=== PATIENT | female | born 1985 | race Caucasian/White ===

== ENCOUNTER 2023-05-08 16:49 | Emergency (ER) | payer MEDICAID, SELFPAY ==
[2023-05-08 16:56] VITALS: BP 178/102; PULSE 90; RESP 14; TEMP 36.8; O2SAT 97; BMI 37.8
--- NOTE | 2023-05-08 17:24 | XR_ITS ---
The [address] [address] Patient Name: TORY HSU MRN: [id number] date: 1985 Sex: F Assigned Patient Location: ER Current Patient Location: ER Accession/Order Number: [id number] Exam Date: 05/08/2023 17:37 Report Date: 05/08/2023 18:23 At the request of: BRYANT CORCORAN Procedure: XR hip LT 2V w/ pelvis IMAGES REVIEWED: XR hip LT 2V w/ pelvis COMPARISON: 06/08/2022. CLINICAL INDICATION: left hip pain FINDINGS/IMPRESSION: Unremarkable radiographic appearance of the left hip. Electronically authenticated by: JULIANA HANSEN Date: 05/08/2023 18:23
--- NOTE | 2023-05-08 17:24 | XR_ITS ---
[place] [id number] Patient Name: TORY HSU MRN: [id number] date: 1985 Sex: F Assigned Patient Location: ER Current Patient Location: ED.MAIN Accession/Order Number: [id number] Exam Date: 05/08/2023 17:37 Report Date: 05/08/2023 18:13 At the request of: BRYANT CORCORAN Procedure: XR lumbar spine 2-3V EXAMINATION: XR lumbar spine 2-3V, , 05/08/2023 5:37 PM EST INDICATION: Low back pain HISTORY: Ordering Provider Reason for Exam: Low back pain Technologist Note: Additional: COMPARISON: None. TECHNIQUE: Left hip x-ray: 2 view(s). FINDINGS: No acute fracture. Joint alignment is anatomic. Joint spaces are preserved. Soft tissues are within normal limits. XR/XR lumbar spine 2-3V IMPRESSION: No acute fracture or traumatic malalignment. Electronically authenticated by: IRENE HOUGH Date: 05/08/2023 18:13
--- NOTE | 2023-05-08 17:27 | ED_ITS ---
HPI - Back Pain/Injury General Chief Complaint: Back Pain/Injury Stated Complaint: LT LEG PAIN Time Seen by Provider: 05/08/23 16:57 Source: patient and family Mode of arrival: walk-in Limitations: no limitations History of Present Illness HPI Narrative: patient is a 37-year-old female who presents to the emergency department for the evaluation of pain radiating from the left low back into the left buttock and do wn the back of the left leg. Patient states pain has been present for the last week. It has been increasing over the last several days. She is not concerned for . She denies any falls or injuries. She has not had these symptoms previously. No medications taken prior to arrival. She denies any peripheral paresthesias or incontinence. Related Data Home Medications Medication Instructions Recorded Confirmed escitalopram oxalate 10 mg tablet 10 mg PO DAILY 05/08/23 05/08/23 fluticasone propionate 50 2 spray intranasal 05/08/23 mcg/actuation nasal spray,suspension hydrochlorothiazide 12.5 mg tablet 12.5 mg PO DAILY 05/08/23 05/08/23 hydroxyzine pamoate 50 mg capsule 50 mg PO BID PRN anxiety 05/08/23 05/08/23 omega 1-hrc-ftp-fish oil 300 1 cap PO BID 05/08/23 05/08/23 mg-1,000 mg capsule (Fish Oil) quetiapine 100 mg tablet 100 mg PO BEDTIME 05/08/23 05/08/23 sumatriptan succinate 50 mg tablet 50 mg PO Q2H PRN migraine headache 05/08/23 05/08/23 Previous Rx's Medication Instructions Recorded hydrocodone 5 mg-acetaminophen 325 1 tab PO Q6H PRN pain #12 tabs 05/08/23 mg tablet ketorolac 10 mg tablet 10 mg PO TID PRN pain #10 tabs 05/08/23 methocarbamol 750 mg tablet 750 mg PO TID PRN pain #20 tabs 05/08/23 Allergies Allergy/AdvReac Type Severity Reaction Status Date / Time amoxicillin AdvReac Severe Hives Verified 05/08/23 16:55 Review of Systems ROS Constitutional Denies: fever or chills Ears, nose, mouth, and throat Denies: neck pain Cardiovascular Denies: chest pain Respiratory Denies: shortness of breath or cough Gastrointestinal Denies: abdominal pain, nausea or vomiting Musculoskeletal Reports: back pain and extremity pain; Denies: neck pain Integumentary/Breast Denies: rash Neurological Denies: headache Hematologic/Lymphatic Denies: easy bruising PFSH PFSH Social History Smoking status: Current every day smoker Exam Narrative Exam Narrative: Gen.: Awake, alert, in no distress Head: Normocephalic, atraumatic ENT: Moist mucous membranes Respiratory: No respiratory distress back: No bony tenderness of the T-spine or L-spine with diffuse mild tenderness of the left posterior hip and left paraspinal muscles of the lumbar spine. No obvious deformity or step-off Extremities: Moves extremities equally, no injuries noted; normal dorsiflexion and plantarflexion of the lower extremities with no decrease in sensation to the medial thighs Psych: Normal mood and affect Neuro: No focal neuro deficit Skin: Warm, dry, intact Constitutional Vital Signs, click to edit/add: Last Vital Signs Temp 98.2 F 05/08/23 16:56 Pulse 90 05/08/23 16:56 Resp 14 05/08/23 16:56 BP 178/102 H 05/08/23 16:56 Pulse Ox 97 05/08/23 16:56 O2 Del Method Room Air 05/08/23 16:56 Course Vital Signs Vital signs: Vital Signs Temperature 98.2 F 05/08/23 16:56 Pulse Rate 90 05/08/23 16:56 Respiratory Rate 14 05/08/23 16:56 Blood Pressure 178/102 H 05/08/23 16:56 Pulse Oximetry 97 05/08/23 16:56 Oxygen Delivery Method Room Air 05/08/23 16:56 Temperature 98.2 F 05/08/23 16:56 Pulse Rate 90 05/08/23 16:56 Respiratory Rate 14 05/08/23 16:56 Blood Pressure 178/102 H 05/08/23 16:56 Pulse Oximetry 97 05/08/23 16:56 Oxygen Delivery Method Room Air 05/08/23 16:56 MDM - Back Pain/Injury MDM Narrative Medical decision making narrative: x-rays of the lumbar spine and left hip with pelvis show no evidence of acute process. Patient's history and exam are consistent with left-sided sciatica. She'll be treated for symptoms for home. She has no focal neuro deficits on exam. She is encouraged to rest, alternate ice and heat and follow-up with PCP. Return to the Emergency Room if symptoms change or worsen. patient was noted to have high blood pressure in the Emergency Room, she takes blood pressure medications daily but states due to her pain today she has been laying around did not take her regular daily blood pressure medication. She will take this when she gets home. Medical Records Attestation: I reviewed the patient's medical records. Discharge Plan Discharge Chief Complaint: Back Pain/Injury Clinical Impression: Acute left-sided back pain with sciatica Patient Disposition: Home, Self-Care Time of Disposition Decision: 18:08 Condition: Good Prescriptions / Home Meds: New hydrocodone-acetaminophen 5-325 mg tablet 1 tab PO Q6H PRN (Reason: pain) Qty: 12 0RF Rx Instructions: DX: M54.5 ketorolac 10 mg tablet 10 mg PO TID PRN (Reason: pain) Qty: 10 0RF methocarbamol 750 mg tablet 750 mg PO TID PRN (Reason: pain) Qty: 20 0RF No Action hydrochlorothiazide 12.5 mg tablet 12.5 mg PO DAILY escitalopram oxalate 10 mg tablet 10 mg PO DAILY fluticasone propionate 50 mcg/actuation spray,suspension 2 spray INTRANASAL hydroxyzine pamoate 50 mg capsule 50 mg PO BID PRN (Reason: anxiety) omega 7-npi-qsu-fish oil [Fish Oil] 300-1,000 mg capsule 1 cap PO BID quetiapine 100 mg tablet 100 mg PO BEDTIME sumatriptan succinate 50 mg tablet 50 mg PO Q2H PRN (Reason: migraine headache) Instructions: Sciatica (ED), Lower Back Exercises (ED) Stand Alone Forms: Portal Instructions Referrals: RONY SHARMA [Primary Care Provider] - 1 week
[2023-05-08] MEDS: HYDROCODONE/ACET 5-325 MG TABLET 1 TAB PO (17:34)
[2023-05-08] MEDS: KETOROLAC TROMETHAMINE 60 MG/2 ML VIAL IM (17:34)
[2023-05-08] MEDS: ORPHENADRINE 60 MG/ 2 ML VIAL IM (17:34)
== END 2023-05-08 18:12 | disposition home or self-care (01) ==
PROVIDERS: Emergency Provider Emergency Medicine Emergency Medical Services; PCP Nurse Practitioner
DX: M54.42 Lumbago with sciatica, left side (principal); Z79.899 Other long term (current) drug therapy; F17.210 Nicotine dependence, cigarettes, uncomplicated
CPT/HCPCS: 72100; 73502; 96372; 99285

== ENCOUNTER 2023-11-06 20:25 | Outpatient (REF) | payer MEDICAID, SELFPAY | END 2023-11-06 20:26 | disposition home or self-care (01) | LOC: LAB 20:25 | PROVIDERS: PCP Nurse Practitioner; Visit Provider Physician Assistant | DX: Z01.419 Encounter for gynecological examination (general) (routine) without abnormal findings (principal) | CPT/HCPCS: 87624; G0145 ==

== ENCOUNTER 2023-11-13 16:39 | Outpatient (OUT) | payer MEDICAID, SELFPAY ==
--- OUTSIDE RECORDS SUMMARY | 2023-11-13 17:00 | XMS_ITS | CCD ---
Author Organization [facility] Care Team Providers Care Junior Architect Name Role Phone Gerson Sheppard Admitting Unavailable Gerson Sheppard Attending Unavailable Unavailable Primary Care Provider Unavailabl e Unavailable Primary Care Provider Unavailabl e JACKIE, ARIE Referring Unavailable JACKIE, ARIE Referring Unavailable JACKIE, ARIE Referring Unavailable JACKIE, ARIE Referring Unavailable JACKIE, ARIE Referring Unavailable REQUEST, NONE LISTED Primary Care Unavaila ble ASHLIE ., JOCE Admitting Unavailable ASHLIE ., JOCE Attending Unavailable JEWELL ., MICHELLE HURTADO Consulting Unavailabl e REQUEST, NONE LISTED Primary Care Unavaila ble ANTONIA DREW Admitting Unavailable ANTONIA DREW Attending Unavailable REQUEST, NONE LISTED Primary Care Unavaila ble ASHLIE ., JOCE Admitting Unavailable ASHLIE ., JOCE Attending Unavailable GRECHNY ., MICHELLE HURTADO Consulting Unavailabl e ROSSEMILIANA Consulting Unavailable REQUEST, NONE LISTED Primary Care Unavaila ble MARKER ., DR SPRAGUE Admitting Unavailable MARKER ., DR SPRAGUE Attending Unavailable MARKER ., DR SPRAGUE Consulting Unavailable SHARON MC Consulting Unavailable KARASIK ., DR GARCIA Admitting Unavailabl e KARASIK ., DR GARCIA Attending Unavailabl e REQUEST, NONE LISTED Primary Care Unavaila ble KARASIK ., DR GARCIA Consulting Unavailabl e RONY COX Primary Care Physician RONY COX Primary Care Unavailable Li Deutsch Attending Unavailable Rony Villalobos Primary Care Provid er MACHO BUTLER Attending Unavailable Allergies Allergy Classification Reported Allergen(s) Allergy Type Date of Onset Reaction(s) Facility (1 source) Penicillin Drug Allergy [facility] (3 sources) Penicillins Propensity to adverse reactions to drug [facility] Medications Current Medications Medication Drug Class(es) Dates Sig (Normalized) Sig (Original) ARIPiprazole 5 mg oral tablet (4 sources) Atypical Antipsychotic Start: 06-14-2023 take 1 tablet by mouth in the morning ARIPiprazole (ABILIFY) 5 mg tablet Indications: Bipolar affective disorder, currently depressed, mild (CMS-HCC) Take 1 tablet (5 mg total) by mouth in the morning. 30 tablet 3 06/14/2023 Active Start: 02-21-2023 Abilify Refill s(s) 0 Start Date: 02/21/23 Status: Ordered Peridex (4 sources) Start: 02-21-2023 Peridex Refill (s) 0 Start Date: 02/21/23 Status: Ordered Start: 01-08-2023 take 15 mL by mouth in the morning chlorhexidine (PERIDEX) 0.12 % solution Indications: Canker sores oral Apply 15 mL to the mouth or throat in the morning and 15 mL before bedtime. 120 mL 1 01/08/2023 Active cholecalciferol 0.125 mg oral capsule (4 sources) Vitamin D Start: 06-14-2023 End: 09-12-2023 take 1 capsule by mouth once daily in the morning cholecalciferol, vitamin D3, (VITAMIN D3) 5,000 units capsule Indications: Vitamin D deficiency take 1 capsule by mouth every morning 30 capsule 5 09/12/2023 Active escitalopram 10 mg oral tablet (4 sources) Serotonin Reuptake Inhibitor Start: 05-01-2023 take 1 tablet by mouth in the morning escitalopram (LEXAPRO) 10 mg tablet Indications: Bipolar affective disorder, currently depressed, mild (CMS-HCC) Take 1 tablet (10 mg total) by mouth in the morning. 30 tablet 5 05/01/2023 Active Start: 02-21-2023 Lexapro Refill s(s) 0 Start Date: 02/21/23 Status: Ordered fexofenadine hydrochloride 180 mg oral tablet (4 sources) Histamine-1 Receptor Antagonist Start: 06-14-2023 take 1 tablet by mouth in the morning fexofenadine (SHELLY) 180 mg tablet Indications: Chronic seasonal allergic rhinitis Take 1 tablet (180 mg total) by mouth in the morning. 30 tablet 6 06/14/2023 Active Start: 02-21-2023 Shelly Refill s(s) 0 Start Date: 02/21/23 Status: Ordered Fish Oils (4 sources) Start: 06-14-2023 take 1 capsule by mo [facility] twice daily Fish OiL 300-1,000 mg capsule Indications: Mineral metabolism disorder take 1 capsule by mouth twice a day as directed 30 each 11 06/14/2023 Active Start: 02-21-2023 Fish Oil Refil l(s) 0 Start Date: 02/21/23 Status: Ordered fluticasone propionate 0.05 mg/actuat metered dose nasal spray (4 sources) Corticosteroid Start: 06-14-2023 take 2 spray(s) nasal route in the morning fluticasone propionate (FLONASE) 50 mcg/actuation nasal spray Indications: Chronic seasonal allergic rhinitis Administer 2 sprays into each nostril in the morning. 16 g 6 06/14/2023 Active Start: 02-21-2023 Flonase Refill (s) 0 Start Date: 02/21/23 Status: Ordered hydroCHLOROthiazide 12.5 mg oral tablet (4 sources) Thiazide Diuretic Start: 06-14-2023 take 1 tablet by mouth once daily hydroCHLOROthiazide (HYDRODIURIL) 12.5 mg tablet Indications: Nephrolithiasis Take 1 tablet (12.5 mg total) by mouth daily. 30 tablet 3 06/14/2023 Active Start: 02-21-2023 hydrochlorothi azide 12.5 mg Cap Refills(s) 0 Start Date: 02/21/23 Status: Ordered hydrOXYzine pamoate 50 mg oral capsule (5 sources) Antihistamine Start: 05-30-2023 End: 08-06-2023 take 1 capsule by mouth twice daily hydrOXYzine (VISTARIL) 50 mg capsule take 1 capsule by mouth twice a day if needed 60 capsule 1 08/06/2023 Active Start: 02-21-2023 Vistaril Refil ls(s) 0 Start Date: 02/21/23 Status: Ordered meloxicam 15 mg oral tablet (4 sources) Nonsteroidal Anti-inflammatory Drug Start: 06-14-2023 End: 03-13-2024 take 1 tablet by mouth once daily in the morning meloxicam (MOBIC) 15 mg tablet Indications: Lumbar back pain with radiculopathy affecting left lower extremity take 1 tablet by mouth every morning 30 tablet 5 09/12/2023 Active methocarbamol 750 mg oral tablet (4 sources) Muscle Relaxant Start: 08-15-2023 take 1 tablet by mouth three times daily methocarbamoL (ROBAXIN) 750 mg tablet Indications: Lumbar back pain with radiculopathy affecting left lower extremity take 1 tablet by mouth three times a day 90 tablet 1 08/15/2023 Active Start: 06-14-2023 End: 08-15-2023 take 1 tablet by mouth three times daily methocarbamoL (ROBAXIN-750) 750 mg tablet Indications: Lumbar back pain with radiculopathy affecting left lower extremity Take 1 tablet (750 mg total) by mouth 3 (three) times a day. 90 tablet 1 06/14/2023 08/15/2023 Discontinued QUEtiapine 100 mg oral tablet (4 sources) Atypical Antipsychotic Start: 06-14-2023 take 1 tablet by mouth once daily QUEtiapine (SEROquel) 100 mg tablet Indications: Bipolar affective disorder, currently depressed, mild (CMS-HCC) Take 1 tablet (100 mg total) by mouth nightly. 30 tablet 3 06/14/2023 Active Start: 02-21-2023 Seroquel Refil ls(s) 0 Start Date: 02/21/23 Status: Ordered SUMAtriptan 50 mg oral tablet (4 sources) Serotonin-1b and Serotonin-1d Receptor Agonist Start: 05-01-2023 SUMAtriptan (IMITREX ) 50 mg tablet Indications: Migraine without aura and without status migrainosus, not intractable take 1 tablet by mouth if needed AT ONSET OF HEADACHE may repeat ... (REFER TO PRESCRIPTION NOTES). 9 tablet 3 05/01/2023 Active Start: 02-21-2023 sumatriptan Re fills(s) 0 Start Date: 02/21/23 Status: Ordered Vitamin D3 5000 intl units (125 mcg) oral tab (1 source) Start: 02-21-2023 Vitamin D3 500 0 intl units (125 mcg) oral tab Refills(s) 0 Start Date: 02/21/23 Status: Ordered Problems Active Problems Problem Classification Problem Date Documented Date Episodic/Chronic Immunizations and screening for infectious disease (1 source) Encounter for screening for human papillomavirus (HPV); Translations: [ENC SCREENING HUMAN PAPILLOMAVIRUS] Onset: 09-23-2022 Episodic Nutritional deficiencies (1 source) Vitamin D deficiency; Translations: [Vitamin D deficiency, unspecified] 09-12-2023 Chronic Other aftercare (1 source) 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; Translations: [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 DRUG THERAPY] Onset: 07-13-2022 Episodic Other connective tissue disease (3 sources) Other specified soft tissue disorders; Translations: [OTHER SPEC SOFT TISSUE DISORDERS] Onset: 07-12-2022 Episodic Other infections; including parasitic (1 source) H/O: infectious disease; Translations: [Personal history of other infectious and parasitic diseases] Onset: 02-13-2023 Episodic Other infections; including parasitic (1 source) History of hepatitis C 02-21-2023 Episodic Other nutritional; endocrine; and metabolic disorders (3 sources) Disorder of mineral metabolism; 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, unspecified] Onset: 09-06-2016 09-18-2022 Chronic Other screening for suspected conditions (not mental disorders or infectious disease) (4 sources) Encounter for screening for malignant neoplasm of cervix; Translations: [ENC SCREENING MALIG NEOPLASM CERV] Onset: 09-19-2022 Episodic Other skin disorders (1 source) Ingrowing nail; Translations: [INGROWING NAIL] Onset: 07-13-2022 Episodic Residual codes; unclassified (4 sources) Procedure and treatment not carried out due to patient leaving prior to being seen by health care provider; Translations: [PROC AND TX NOT CARRIED OUT PT LEAVE] Onset: 07-10-2022 Episodic Skin and subcutaneous tissue infections (1 source) Local infection of the skin and subcutaneous tissue, unspecified; Translations: [LOCAL INFECT SKIN SUBQ TISSUE UNS] Onset: 07-13-2022 Episodic Spondylosis; intervertebral disc disorders; other back problems (2 sources) Lumbar radiculopathy; Translations: [Radiculopathy, lumbar region] 08-14-2023 Episodic Substance-related disorders (1 source) Nicotine dependence, cigarettes, uncomplicated; Translations: [NICOTINE DEPEND CIGARETTES UNCOMP] Onset: 07-13-2022 Chronic Unclassified (3 sources) LOW BACK PAIN, UNSPECIFIED; Translations: [LOW BACK PAIN, UNSPECIFIED] Onset: 06-12-2022 Past or Other Problems Problem Classification Problem Date Documented Da te Episodic/Chronic Calculus of urinary tract (3 sources) Kidney stone; Translations: [Calculus of kidney] Onset: 08-31-2016 03-13-2019 Episodic E Codes: Natural/environment (1 source) Exposure to other specified factors, initial encounter; Translations: [EXPOSURE OTHER SPEC FACTORS INITIAL] Onset: 11-25-2021 Episodic Fluid and electrolyte disorders (1 source) Hypokalemia; Translations: [HYPOKALEMIA] Onset: 11-25-2021 Episodic Mood disorders (3 sources) Mood disorders Onset: 06-14-2023 06-14-2023 Other injuries and conditions due to external causes (1 source) Other specified injuries of head, initial encounter; Translations: [OTH SPEC INJURIES HEAD INITIAL ENC] Onset: 11-25-2021 Episodic Syncope (4 sources) Syncope and collapse; Translations: [SYNCOPE AND COLLAPSE] Onset: 11-23-2021 Episodic Unclassified (1 source) LOW BACK PAIN, UNSPECIFIED; Translations: [LOW BACK PAIN, UNSPECIFIED] Onset: 06-08-2022 Unclassified (3 sources) Onset: 06-14-2023 06-14-2023 Urinary tract infections (1 source) Urinary tract infection, site not specified; Translations: [UTI SITE NOT SPECIFIED] Onset: 06-12-2022 Episodic Results Test Name Value Interpretation Reference Range Facil ity Lab Reportson 02-21-2023 Lab Reports [id number]#[id number]:127 Normal [facility] RAD - CT Reporton 02-21-2023 RAD - CT Report [id number] #1.00CD:127 [facility] Physician Referralon 023 Physician Referral [id number] #1.00CD:127 Normal [facility] PAP ACOG PANEL 2: 30 to 65on 09-28-2022 . . Normal [facility] Comment on above: Result Comment: Perf ormed at: WB Performed By: #### [id number] #### [facility] [address] [place] [address] Dr. Oneyda Rodriguez Age Gdln ACOG Testing 30-65 Normal [facility] Comment on above: Performed By: #### [id number] #### [facility] [address] [place] [address] Dr. Oneyda Rodriguez DIAGNOSIS: Comment Normal [facility] Comment on above: Result Comment: NEGA TIVE FOR INTRAEPITHELIAL LESION OR MALIGNANCY. REACTIVE CELLULAR CHANGES AND/OR REPAIR ARE PRESENT. Performed at: WB Performed By: #### [id number] #### [facility] [address] [place] [address] Dr. Oneyda Rodriguez Electronically signed by: Comment Normal [facility] Comment on above: Result Comment: Gila Lopez MD, Pathologist Performed at: WB Performed By: #### [id number] #### [facility] [address] [place] [address] Dr. Oneyda Rodriguez HPV Aptima Negative Normal Negative [facility] Comment on above: Result Comment: This nucleic acid amplification test detects fourteen high-risk HPV types (16,18,31,33,35,39,45,51,52,56,58,59,66,68) without differentiation. Performed at: =G Performed By: #### [id number] #### [facility] [address] [place] [address] Dr. Oneyda Rodriguez HPV Genotype Reflex Comment Normal [facility] Comment on above: Result Comment: Crit eria not met, HPV Genotype not performed. Performed at: WB Performed By: #### [id number] #### [facility] [address] [place] [address] Dr. Oneyda Rodriguez Methodology: Comment Normal [facility] Comment on above: Result Comment: This liquid based ThinPrep(R) pap test was screened with the use of an image guided system. Performed at: WB Performed By: #### [id number] #### [facility] [address] [place] [address] Dr. Oneyda Rodriguez Note: Comment Normal [facility] Comment on above: Result Comment: The Pap smear is a screening test designed to aid in the detection of premalignant and malignant conditions of the uterine cervix. It is not a diagnostic procedure and should not be used as the sole means of detecting cervical cancer. Both false-positive and false-negative reports do occur. . Performed at: WB Performed By: #### [id number] #### [facility] [address] [place] [address] Dr. Oneyda Rodriguez Performed by: Comment Normal [facility] Comment on above: Result Comment: Katie Elliott, Supervisory Roofer Applicator (ASCP) Performed at: WB Performed By: #### [id number] #### [facility] [address] [place] [address] Dr. Oneyda Rodriguez Specimen adequacy: Comment Normal [facility] Comment on above: Result Comment: Sati sfactory for evaluation. Endocervical and/or squamous metaplastic cells (endocervical component) are present. Performed at: WB Performed By: #### [id number] #### [facility] [address] [place] [address] Dr. Oneyda Rodriguez CULTURE URINEon 06-11-2022 CULTURE URINE Isolate 1 Escherichia coli >100,000 cfu/mL of ORGANISM 1 Escherichia coli ANTIBIOTIC M.I.C RX STATUS Ampicillin 4 S F Ampicillin/Sulbactam 4 S F Piperacillin/Tazobac ivy <=4 S F Cefazolin <=4 S F Ceftazidime <=1 S F Ceftriaxone <=1 S F Ertapenem <=0.5 S F Imipenem <=0.25 S F Amikacin <=2 S F Gentamicin <=1 S F Tobramycin <=1 S F Ciprofloxacin <=0.25 S F Levofloxacin <=0.12 S F Nitrofurantoin <=16 S F Trimethoprim/Sulfame thoxazole <=20 S F [facility] Comment on above: Performed By: #### U RCX #### [facility] [address] [place] [address] Dr. Oneyda Rodriguez CBC AUTO DIFFon 06-08-2022 BASO # 0.1 103/ul Normal 0.0-0.1 [facility] Comment on above: Performed By: #### C BC #### [facility] [address] [place] [address] Dr. Oneyda Rodriguez Basophils/100 WBC (Bld) 0.5 % Normal 0.2-2.0 [facility] Comment on above: Performed By: #### C BC #### [facility] [address] [place] [address] Dr. Oneyda Rodriguez EO # 0.2 103/ul Normal 0.0-0.7 [facility] Comment on above: Performed By: #### C BC #### [facility] [address] [place] [address] Dr. Oneyda Rodriguez Eosinophils/100 WBC (Bld) 1.6 % Normal 0.9-7.0 [facility] Comment on above: Performed By: #### C BC #### [facility] [address] [place] [address] Dr. Oneyda Rodriguez Erythrocyte distribution width (RBC) [Ratio] 13.4 % Normal 11.0-15.0 [facility] Comment on above: Performed By: #### C BC #### [facility] [address] [place] [address] Dr. Oneyda Rodriguez Hematocrit (Bld) [Volume fraction] 35.4 % Critically low 36.0-48.0 [facility] Comment on above: Performed By: #### C BC #### [facility] [address] [place] [address] Dr. Oneyda Rodriguez Hemoglobin (Bld) [Mass/Vol] 12.2 g/dL Normal 12.0-16.0 [facility] Comment on above: Performed By: #### C BC #### [facility] [address] [place] [address] Dr. Oneyda Rodriguez IG # 0.05 10e3/ul Critically high 0.00-0.03 [facility] Comment on above: Performed By: #### C BC #### [facility] [address] [place] [address] Dr. Oneyda Rodriguez IG % 0.4 % Normal 0.0-0.5 [facility] Comment on above: Performed By: #### C BC #### [facility] [address] [place] [address] Dr. Oneyda Rodriguez LYMPH # 2.2 103/ul Normal 1.2-3.8 [facility] Comment on above: Performed By: #### C BC #### [facility] [address] [place] [address] Dr. Oneyda Rodriguez Lymphocytes/100 WBC (Bld) 16.6 % Critically low 20.5-60.0 [facility] Comment on above: Performed By: #### C BC #### [facility] [address] [place] [address] Dr. Oneyda Rodriguez MANUAL DIFF REQ NO Normal [facility] Comment on above: Performed By: #### C BC #### [facility] [address] [place] [address] Dr. Oneyda Rodriguez MCH (RBC) [Entitic mass] 29.7 pg Normal 26.7-34.0 [facility] Comment on above: Performed By: #### C BC #### [facility] [address] [place] [address] Dr. Oneyda Rodriguez MCHC (RBC) [Mass/Vol] 34.5 g/dL Normal 29.9-35.2 [facility] Comment on above: Performed By: #### C BC #### [facility] [address] [place] [address] Dr. Oneyda Rodriguez MCV (RBC) [Entitic vol] 86.1 fL Normal 81.0-99.0 [facility] Comment on above: Performed By: #### C BC #### [facility] [address] [place] [address] Dr. Oneyda Rodriguez MONO # 0.6 103/ul Normal 0.3-0.8 [facility] Comment on above: Performed By: #### C BC #### [facility] [address] [place] [address] Dr. Oneyda Rodriguez Monocytes/100 WBC (Bld) 4.2 % Normal 1.7-12.0 [facility] Comment on above: Performed By: #### C BC #### [facility] [address] [place] [address] Dr. Oneyda Rodriguez NEUT # 10.3 103/ul Critically high 1.4-6.5 [facility] Comment on above: Performed By: #### C BC #### [facility] [address] [place] [address] Dr. Oneyda Rodriguez Neutrophils/100 WBC (Bld) 76.7 % Critically high 43.0-75.0 [facility] Comment on above: Performed By: #### C BC #### [facility] [address] [place] [address] Dr. Oneyda Rodriguez Platelet mean volume (Bld) [Entitic vol] 11.1 fL Normal 9.5-13.5 [facility] Comment on above: Performed By: #### C BC #### [facility] [address] [place] [address] Dr. Oneyda Rodriguez PLT 184 103/ul Normal 150-450 [facility] Comment on above: Performed By: #### C BC #### [facility] [address] [place] [address] Dr. Oneyda Rodriguez RBC 4.11 106/ul Critically low 4.20-5.[address] [facility] Comment on above: Performed By: #### C BC #### [facility] [address] [place] [address] Dr. Oneyda Rodriguez WBC 13.4 103/ul Critically high 4.0-11.0 [facility] Comment on above: Performed By: #### C BC #### [facility] [address] [place] [address] Dr. Oneyda Rodriguez ER URINE PROFILEon 2 Bilirubin Ql (U) Negative Normal NEGATIVE [facility] Comment on above: Performed By: #### HENRI LIRO #### [facility] [address] [place] [address] Dr. Oneyda Rodriguez Clarity (U) CLEAR Normal CLEAR [facility] Comment on above: Performed By: #### HENRI LIRO #### [facility] [address] [place] [address] Dr. Oneyda Rodriguez Color (U) LT. YELLOW Normal YELLOW [facility] Comment on above: Performed By: #### Lamonte TRAORE UMICRO #### [facility] [address] [place] [address] Dr. Oneyda FREDERICK A micrscopic examination will be performed if indicated. Normal [facility] Comment on above: Performed By: #### Lamonte TRAORE UMICRO #### [facility] [address] [place] [address] Dr. Oneyda Rodriguez Glucose Ql (U) Negative Normal NEGATIVE [facility] Comment on above: Performed By: #### Lamonte TRAORE UMICRO #### [facility] [address] [place] [address] Dr. Oneyda Rodriguez Hemoglobin Ql (U) SMALL Abnormal NEGATIVE [facility] Comment on above: Performed By: #### Lamonte TRAORE UMICRO #### [facility] [address] [place] [address] Dr. Oneyda Rodriguez Ketones Ql (U) Negative Normal NEGATIVE [facility] Comment on above: Performed By: #### Lamonte TRAORE UMICRO #### [facility] [address] [place] [address] Dr. Oneyda Rodriguez LEUKOCYTES SMALL Abnormal NEGATIVE [facility] Comment on above: Performed By: #### Lamonte TRAORE UMICRO #### [facility] [address] [place] [address] Dr. Oneyda Rodriguez Nitrite Ql (U) Positive Abnormal NEGATIVE [facility] Comment on above: Performed By: #### Lamonte TRAORE UMICRO #### [facility] [address] [place] [address] Dr. Oneyda Rodriguez pH (U) 6.0 [pH] Normal 5-9 [facility] Comment on above: Performed By: #### Lamonte TRAORE UMICRO #### [facility] [address] [place] [address] Dr. Oneyda Rodriguez SPEC GRAVITY 1.025 Normal 1.005-<=1.025 [facility] Comment on above: Performed By: #### Lamonte TRAORE UMICRO #### [facility] [address] [place] [address] Dr. Oneyda Rodriguez UA PROTEIN TRACE Normal NEGATIVE/ TRACE [facility] Comment on above: Performed By: #### BILL LI #### [facility] [address] [place] [address] Dr. Oneyda Rodriguez UR MICRO IND INDICATED Normal [facility] Comment on above: Performed By: #### BILL LI #### [facility] [address] [place] [address] Dr. Oneyda Rodriguez Urobilinogen Qn (U) 0.2 {Saul'U}/dL Normal 0.2 - 1. 0 [facility] Comment on above: Performed By: #### BILL LI #### [facility] [address] [place] [address] Dr. Oneyda Rodriguez PREG HCG QUALon 06-08-2022 , QUAL Negative Normal NEGATIVE [facility] Comment on above: Performed By: #### BILL LI #### [facility] [address] [place] [address] Dr. Oneyda Rodriguez PROF 14(COMP METB)on 022 Albumin [Mass/Vol] 3.6 g/dL Normal 3.4-5.0 [facility] Comment on above: Performed By: #### C MP #### [facility] [address] [place] [address] Dr. Oneyda Rodriguez Albumin/Globulin [Mass ratio] 1.1 {ratio} Normal [facility] Comment on above: Performed By: #### C MP #### [facility] [address] [place] [address] Dr. Oneyda Rodriguez ALP [Catalytic activity/Vol] 115 U/L Normal 46-116 [facility] Comment on above: Performed By: #### C MP #### [facility] [address] [place] [address] Dr. Oneyda Rodriguez ALT [Catalytic activity/Vol] 52 U/L Normal 14-59 [facility] Comment on above: Performed By: #### C MP #### [facility] [address] [address] [address] Oneyda Rodriguez Anion gap [Moles/Vol] 8.2 mmol/L Normal [facility] Comment on above: Performed By: #### C MP #### [facility] [address] [address] [address] Oneyda Rodriguez AST [Catalytic activity/Vol] 21 U/L Normal 15-37 [facility] Comment on above: Performed By: #### C MP #### [facility] [address] [address] [address] Oneyda Rodriguez Bilirubin [Mass/Vol] 0.1 mg/dL Critically low 0.2-1.0 [facility] Comment on above: Performed By: #### C MP #### [facility] [address] [place] [address] Dr. Oneyda Rodriguez Calcium [Mass/Vol] 8.4 mg/dL Critically low 8.5-10.1 [facility] Comment on above: Performed By: #### C MP #### [facility] [address] [place] [address] Dr. Oneyda Rodriguez Chloride [Moles/Vol] 105 mmol/L Normal 98-107 [facility] Comment on above: Performed By: #### C MP #### [facility] [address] [place] [address] Dr. Oneyda Rodriguez CO2 [Moles/Vol] 28.3 mmol/L Normal 21.0-32.0 [facility] Comment on above: Performed By: #### C MP #### [facility] [address] [place] [address] Dr. Oneyda Rodriguez Creatinine [Mass/Vol] 0.84 mg/dL Normal 0.55-1.02 [facility] Comment on above: Performed By: #### C MP #### [facility] [address] [place] [address] Dr. Oneyda Rodriguez EGFR-AF ARMENIAN >60 Normal >=60 [facility] Comment on above: Performed By: #### C MP #### [facility] [address] [place] [address] Dr. Oneyda Rodriguez EGFR-NON AF ARMENIAN >60 Normal >=60 [facility] Comment on above: Performed By: #### C MP #### [facility] [address] [place] [address] Dr. Oneyda Rodriguez Globulin (S) [Mass/Vol] 3.3 g/dL Normal [facility] Comment on above: Performed By: #### C MP #### [facility] [address] [place] [address] Dr. Oneyda Rodriguez Glucose [Mass/Vol] 85 mg/dL Normal 74-106 [facility] Comment on above: Performed By: #### C MP #### [facility] [address] [place] [address] Dr. Oneyda Rodriguez Potassium [Moles/Vol] 3.5 mmol/L Normal 3.5-5.1 [facility] Comment on above: Performed By: #### C MP #### [facility] [address] [place] [address] Dr. Oneyda Rodriguez Protein [Mass/Vol] 6.9 g/dL Normal 6.4-8.2 The [facility] Comment on above: Performed By: #### C MP #### [facility] [address] [place] [address] Dr. Oneyda Rodriguez Sodium [Moles/Vol] 138 mmol/L Normal 136-145 [facility] Comment on above: Performed By: #### C MP #### [facility] [address] [place] [address] Dr. Oneyda Rodriguez Urea nitrogen [Mass/Vol] 14.0 mg/dL Normal 7.0-18.0 [facility] Comment on above: Performed By: #### C MP #### [facility] [address] [place] [address] Dr. Oneyda Rodriguez Urea nitrogen/Creatinine [Mass ratio] 16.7 mg/mg Normal [facility] Comment on above: Performed By: #### C MP #### [facility] [address] [place] [address] Dr. Oneyda Rodriguez URINE MICROSCOPIC ONLYon 12- 08-2022 BACTERIA TRACE Abnormal NONE SEEN [facility] Comment on above: Performed By: #### E LEÓN, UMICRO #### [facility] [address] [place] [address] Dr. Oneyda Rodriguez Bacteria identified Cx Nom (U) INDICATED Normal [facility] Comment on above: Performed By: #### E LEÓN, UMICRO #### [facility] [address] [place] [address] Dr. Oneyda Rodriguez CAST NONE SEEN Normal NONE SEEN [facility] Comment on above: Performed By: #### E RUEugene, UMICRO #### [facility] [address] [place] [address] Dr. Oneyda Rodriguez Crystals LM Nom (Urine sed) NONE SEEN Normal NONE SEEN [facility] Comment on above: Performed By: #### E LEÓN, UMICRO #### [facility] [address] [place] [address] Dr. Oneyda Rodriguez Epithelial cells LM Ql (Urine sed) RARE Normal NONE SEEN /RARE [facility] Comment on above: Performed By: #### Lamonte TRAORE UMICRO #### [facility] [address] [place] [address] Dr. Oneyda Rodriguez MUCOUS NONE SEEN Normal NONE SEEN [facility] Comment on above: Performed By: #### Lamonte TRAORE UMICRO #### [facility] [address] [place] [address] Dr. Oneyda Rodriguez RBC NONE SEEN Abnormal 0-2 [facility] Comment on above: Performed By: #### Lamonte TRAORE UMICRO #### [facility] [address] [place] [address] Dr. Oneyda Rodriguez WBC 2-5 Abnormal NONE SEEN [facility] Comment on above: Performed By: #### Lamonte TRAORE UMICRO #### [facility] [address] [place] [address] Dr. Oneyda Rodriguez CBC AUTO DIFFon 11-23-2021 BASO # 0.1 103/ul Normal 0.0-0.1 [facility] Comment on above: Performed By: #### C BC #### [facility] [address] [place] [address] Dr. Oneyda Rodriguez Basophils/100 WBC (Bld) 0.5 % Normal 0.2-2.0 [facility] Comment on above: Performed By: #### C BC #### [facility] [address] [place] [address] Dr. Oneyda Rodriguez EO # 0.3 103/ul Normal 0.0-0.7 [facility] Comment on above: Performed By: #### C BC #### [facility] [address] [place] [address] Dr. Oneyda Rodriguez Eosinophils/100 WBC (Bld) 2.4 % Normal 0.9-7.0 [facility] Comment on above: Performed By: #### C BC #### [facility] [address] [place] [address] Dr. Oneyda Rodriguez Erythrocyte distribution width (RBC) [Ratio] 14.8 % Normal 11.0-15.0 [facility] Comment on above: Performed By: #### C BC #### [facility] [address] [place] [address] Dr. Oneyda Rodriguez Hematocrit (Bld) [Volume fraction] 36.0 % Normal 36.0-48.0 [facility] Comment on above: Performed By: #### C BC #### [facility] [address] [place] [address] Dr. Oneyda Rodriguez Hemoglobin (Bld) [Mass/Vol] 11.8 g/dL Critically low 12.0-16.0 [facility] Comment on above: Performed By: #### C BC #### [facility] [address] [place] [address] Dr. Oneyda Rodriguez IG # 0.05 10e3/ul Critically high 0.00-0.03 [facility] Comment on above: Performed By: #### C BC #### [facility] [address] [place] [address] Dr. Oneyda Rodriguez IG % 0.4 % Normal 0.0-0.5 [facility] Comment on above: Performed By: #### C BC #### [facility] [address] [place] [address] Dr. Oneyda Rodriguez LYMPH # 3.2 103/ul Normal 1.2-3.8 [facility] Comment on above: Performed By: #### C BC #### [facility] [address] [place] [address] Dr. Oneyda Rodriguez Lymphocytes/100 WBC (Bld) 24.3 % Normal 20.5-60.0 [facility] Comment on above: Performed By: #### C BC #### [facility] [address] [place] [address] Dr. Oneyda Rodriguez MANUAL DIFF REQ NO Normal [facility] Comment on above: Performed By: #### C BC #### [facility] [address] [place] [address] Dr. Oneyda Rodriguez MCH (RBC) [Entitic mass] 29.2 pg Normal 26.7-34.0 [facility] Comment on above: Performed By: #### C BC #### [facility] [address] [place] [address] Dr. Oneyda Rodriguez MCHC (RBC) [Mass/Vol] 32.8 g/dL Normal 29.9-35.2 [facility] Comment on above: Performed By: #### C BC #### [facility] [address] [place] [address] Dr. Oneyda Rodriguez MCV (RBC) [Entitic vol] 89.1 fL Normal 81.0-99.0 [facility] Comment on above: Performed By: #### C BC #### [facility] [address] [place] [address] Dr. Oneyda Rodriguez MONO # 0.6 103/ul Normal 0.3-0.8 [facility] Comment on above: Performed By: #### C BC #### [facility] [address] [place] [address] Dr. Oneyda Rodriguez Monocytes/100 WBC (Bld) 4.9 % Normal 1.7-12.0 [facility] Comment on above: Performed By: #### C BC #### [facility] [address] [place] [address] Dr. Oneyda Rodriguez NEUT # 8.8 103/ul Critically high 1.4-6.[address] [facility] Comment on above: Performed By: #### C BC #### [facility] [address] [place] [address] Dr. Oneyda Rodriguez Neutrophils/100 WBC (Bld) 67.5 % Normal 43.0-75.0 [facility] Comment on above: Performed By: #### C BC #### [facility] [address] [address] [address] Oneyda Rodriguez Platelet mean volume (Bld) [Entitic vol] 12.5 fL Normal 9.5-13.5 [facility] Comment on above: Performed By: #### C BC #### [facility] [address] [place] [address] Dr. Oneyda Rodriguez PLT 213 103/ul Normal 150-450 [facility] Comment on above: Performed By: #### C BC #### [facility] [address] [address] [address] Oneyda Rodriguez RBC 4.04 106/ul Critically low 4.20-5.[address] [facility] Comment on above: Performed By: #### C BC #### [facility] [address] [place] [address] Dr. Oneyda Rodriguez WBC 13.1 103/ul Critically high 4.0-11.0 [facility] Comment on above: Performed By: #### C BC #### [facility] [address] [place] [address] Dr. Oneyda Rodriguez CRPon 11-23-2021 CRP [Mass/Vol] mg/L Normal <=1.[address] [facility] Comment on above: Performed By: #### BILL LI #### [facility] [address] [place] [address] HEAD WO CONon 11-23-2021 CT HEAD WO CON INDICATION: 36 years old; Female. Closed head trauma. Syncope. History of concussion. TECHNIQUE: CT Head (ax/cor/sag reformats). Ionizing radiation dose reduced via iterative reconstruction/FBP blend and body size kV/mA adjustment. Comparison: None FINDINGS: POSTOPERATIVE CHANGES: None. BRAIN PARENCHYMA: No hemorrhage, mass or acute infarct. Normal merchant/white differentiation. VENTRICLES/EXTRA-AXI AL SPACES: Normal in size for patient's age. SINUSES/MASTOIDS: Visualized sinuses are clear. Mastoid air cells are clear. MSK: No skull fractures. OTHER: No hyperdense intraluminal thrombus is seen. IMPRESSION: 1. No acute intracranial abnormality. No hemorrhage or mass effect. This study cannot exclude a concussion type injury. Electronically authenticated by: SHARON MC Date: 2021-11-23 06:36 Normal [facility] LACTATE/LACTIC ACIDon 2021 Lactate [Moles/Vol] 0.7 mmol/L Normal 0.4-1.9 [facility] Comment on above: Performed By: #### L ACT #### [facility] [address] [place] [address] Dr. Oneyda Rodriguez PROF 14(COMP METB)on 022 Albumin [Mass/Vol] 3.9 g/dL Normal 3.4-5.0 [facility] Comment on above: Performed By: #### Lamonte TRAORE UMICRO #### [facility] [address] [place] [address] Dr. Oneyda Rodriguez Albumin/Globulin [Mass ratio] 1.1 {ratio} Normal [facility] Comment on above: Performed By: #### Lamonte TRAORE UMICRO #### [facility] [address] [address] [address] Oneyda Rodriguez ALP [Catalytic activity/Vol] 107 U/L Normal 46-116 [facility] Comment on above: Performed By: #### Lamonte TRAORE UMICRO #### [facility] [address] [address] [address] Oneyda Rodriguez ALT [Catalytic activity/Vol] 62 U/L Critically high 14-59 [facility] Comment on above: Performed By: #### Lamonte TRAORE UMICRO #### [facility] [address] [place] [address] Dr. Oneyda Rodriguez Anion gap [Moles/Vol] 12.2 mmol/L Normal [facility] Comment on above: Performed By: #### HENRI LIRO #### [facility] [address] [place] [address] Dr. Oneyda Rodriguez AST [Catalytic activity/Vol] 26 U/L Normal 15-37 [facility] Comment on above: Performed By: #### HENRI LIRO #### [facility] [address] [place] [address] Dr. Oneyda Rodriguez Bilirubin [Mass/Vol] 0.3 mg/dL Normal 0.2-1.0 [facility] Comment on above: Performed By: #### HENRI LIRO #### [facility] [address] [place] [address] Dr. Oneyda Rodriguez Calcium [Mass/Vol] 8.8 mg/dL Normal 8.5-10.1 [facility] Comment on above: Performed By: #### HENRI LIRO #### [facility] [address] [place] [address] Dr. Oneyda Rodriguez Chloride [Moles/Vol] 104 mmol/L Normal 98-107 [facility] Comment on above: Performed By: #### HNERI LIRO #### [facility] [address] [place] [address] Dr. Oneyda Rodriguez CO2 [Moles/Vol] 28.9 mmol/L Normal 21.0-32.0 [facility] Comment on above: Performed By: #### HENRI LIRO #### [facility] [address] [place] [address] Dr. Oneyda Rodriguez Creatinine [Mass/Vol] 0.73 mg/dL Normal 0.55-1.02 [facility] Comment on above: Performed By: #### HENRI LIRO #### [facility] [address] [place] [address] Dr. Oneyda Rodriguez EGFR-AF ARMENIAN >60 Normal >=60 [facility] Comment on above: Performed By: #### HENRI LIRO #### [facility] [address] [place] [address] Dr. Oneyda Rodriguez EGFR-NON AF ARMENIAN >60 Normal >=60 [facility] Comment on above: Performed By: #### BILL LI #### [facility] [address] [place] [address] Dr. Oneyda Rodriguez Globulin (S) [Mass/Vol] 3.4 g/dL Normal [facility] Comment on above: Performed By: #### HENRI LIRO #### [facility] [address] [place] [address] Dr. Oneyda Rodriguez Glucose [Mass/Vol] 105 mg/dL Normal 74-106 [facility] Comment on above: Performed By: #### HENRI LIRO #### [facility] [address] [place] [address] Dr. Oneyda Rodriguez Potassium [Moles/Vol] 3.1 mmol/L Critically low 3.5-5.1 [facility] Comment on above: Performed By: #### HENRI LIRO #### [facility] [address] [place] [address] Dr. Oneyda Rodriguez Protein [Mass/Vol] 7.3 g/dL Normal 6.4-8.2 [facility] Comment on above: Performed By: #### BILL LI #### [facility] [address] [place] [address] Dr. Oneyda Rodriguez Sodium [Moles/Vol] 142 mmol/L Normal 136-145 [facility] Comment on above: Performed By: #### HENRI LIRO #### [facility] [address] [place] [address] Dr. Oneyda Rodriguez Urea nitrogen [Mass/Vol] 12.0 mg/dL Normal 7.0-18.0 [facility] Comment on above: Performed By: #### HENRI LIRO #### [facility] [address] [place] [address] Dr. Oneyda Rodriguez Urea nitrogen/Creatinine [Mass ratio] 16.4 mg/mg Normal [facility] Comment on above: Performed By: #### HENRI LIRO #### [facility] [address] [address] [address] Oneyda Rodriguez TROPONIN, HIGH SENSITIVITYon 11-23-2021 HSTROP 4.8 pg/mL Normal 4.0-51.3 [facility] Comment on above: Result Comment: CUT- OFF POINTS HAVE BEEN ESTABLISHED BASED ON THE FOURTH UNIVERSAL DEFINITIONS OF MYOCARDIAL INFARCTION. THE UPPER REFERENCE LIMIT (URL) OF TROPONIN, DEFINED THE 99TH PERCENTILE OF cTnI DISTRIBUTION IN A REFERENCE POPULATION, HAS BEEN CONFIRMED THE DECISION THRESHOLD FOR HI DIAGNOSIS. Performed By: #### E RUR, ICRO #### [facility] [address] [address] [address] Oneyda Rodriguez HCV RNA,Quant,PCRon 11-02-19 HCV RNA,Quant,PCR Specimen Description .PLASMA Special Requests QUALITATIVE Direct Exam HCV RNA DETECTED 994,000 IU/ML (6.00 LOG IU/ML) This test is a sensitive method for quantitating HCV RNA viral loads in plasma. It utilizes RT-PCR in the FDA approved Jem Ampliprep/Taqman 48 System. This test is intended for detecting and quantifying HCV RNA viral loads in the range of 15 IU/mL to 20,000,000 IU/mL (1.18 log IU/mL to 7.30 log IU/mL). Patients should have confirmed HCV infection prior to RNA quantification. This test has been developed to monitor disease progression and efficacy of anti-HCV drug therapy. This test has been optimized for HCV genotypes 1-6. Results reported to the appropriate Health Department Report Status FINAL 11/01/2020 Normal [facility] Comment on above: Performed By: #### H CVQ #### [facility] [address] [place] [address] [employer]: Valdo Diaz MD [facility] [address] [place] [address] [employer]: Mateo Mir MD CBCon 10-27-2020 Erythrocyte distribution width (RBC) [Ratio] 14.4 % Normal 11.8-14.4 [facility] Comment on above: Performed By: #### I PF, CBC, CP, HCG #### [facility] [address] [place] [address] Dr. [place] [id number] [employer]: Mateo Mir MD #### HIVCMB, PHEP #### [address] [id number] [employer]: Valdo Diaz MD Hematocrit (Bld) [Volume fraction] 38.8 % Normal 36.3-47.1 [facility] Comment on above: Performed By: #### I PF, CBC, CP, HCG #### [address] [place] [id number] [employer]: Mateo Mir MD #### HIVCMB, PHEP #### [address] [id number] [employer]: Valdo Diaz MD Hemoglobin (Bld) [Mass/Vol] 12.4 g/dL Normal 11.9-15.1 [facility] Comment on above: Performed By: #### I PF, CBC, CP, HCG #### [address] [place] [id number] [employer]: Mateo Mir MD #### HIVCMB, PHEP #### [place] [address] [employer]: Valdo Diaz MD MCH (RBC) [Entitic mass] 28.0 pg Normal 25.2-33.5 [facility] Comment on above: Performed By: #### I PF, CBC, CP, HCG #### [address] [place] [id number] [employer]: Mateo Mir MD #### HIVCMB, PHEP #### [address] [id number] [employer]: Valdo Diaz MD MCHC (RBC) [Mass/Vol] 32.0 g/dL Normal 28.4-34.8 [facility] Comment on above: Performed By: #### I PF, CBC, CP, HCG #### [facility] [address] [place], [place] [id number] [employer]: Mateo Mir MD #### HIVCMB, PHEP #### [address] [id number] [employer]: Valdo Diaz MD MCV (RBC) [Entitic vol] 87.6 fL Normal 82.6-102.9 [facility] Comment on above: Performed By: #### I PF, CBC, CP, HCG #### [facility] [address] [place], [place] [id number] [employer]: Mateo Mir MD #### HIVCMB, PHEP #### [address] [id number] [employer]: Valdo Diaz MD NRBC Automated 0.0 per 100 WBC Normal 0.0 [facility] Comment on above: Performed By: #### I PF, CBC, CP, HCG #### [facility] [address] [place] [address] Dr. [place] [id number] [employer]: Mateo Mir MD #### HIVCMShavon, PHEP #### [address] [id number] [employer]: Valdo Diaz MD Platelet Count See Reflexed IPF Result Normal 138-453 [facility] Comment on above: Performed By: #### I PF, CBC, CP, HCG #### [facility] [address] [place] [address] Dr. [place] [id number] [employer]: Mateo Mir MD #### HIVCMB, PHEP #### [address] [id number] [employer]: Valdo Diaz MD RBC (Bld) [#/Vol] 4.43 10*6/uL Normal 3.95-5.11 [facility] Comment on above: Performed By: #### I PF, CBC, CP, HCG #### [facility] [address] [place] [address] [employer]: Mateo Mir MD #### HIVCMB, PHEP #### [address] [id number] [employer]: Valdo Diaz MD WBC (Bld) [#/Vol] 8.2 10*3/uL Normal 3.5-11.3 [facility] Comment on above: Performed By: #### I PF, CBC, CP, HCG #### [address] [place] [address] [employer]: Mateo Mir MD #### HIVCMB, PHEP #### [address] [place], [place] [phone] [employer]: Valdo Diaz MD MPV NOT REPORTED Normal 8.1-13.5 [facility] Comment on above: Performed By: #### I PF, CBC, CP, HCG #### [address] [place] [address] [employer]: Mateo Mir MD #### HIVCMB, PHEP #### [address] [place], [place] [phone] [employer]: Valdo Diaz MD CBCOrdered By: Arie Hernandez on 10-27-2020 Hematocrit (Bld) [Volume fraction] 38.8 % 36.3 - 47.1 % [facility] Work Phone: Hemoglobin.gastrointe stinal spec 1 Ql (Stl) 12.4 g/dL 11.9 - 15.1 g/dL [facility] [employer] Phone: MCH (RBC) [Entitic mass] 28.0 pg 25.2 - 33.5 pg [facility] Work Phone: MCHC (RBC) [Mass/Vol] 32.0 g/dL 28.4 - 34.8 g/dL [facility] Phone: MCV (RBC) [Entitic vol] 87.6 fL 82.6 - 102.9 fL [employer] Phone: NRBC Automated 0.0 0.0 per 100 WBC [employer] Phone: Platelet distribution width (Bld) [Ratio] 14.4 % 11.8 - 14.4 % [employer] Phone: Platelet mean volume (Bld) [Entitic vol] NOT REPORTED 8.1 - 13.5 fL [employer] Phone: Platelets (Bld) [#/Vol] See Reflexed IPF Result [employer] Phone: RBC (Bld) [#/Vol] 4.43 10*6/uL 3.95 - 5.1 1 m/uL [facility] Phone: WBC (Bld) [#/Vol] 8.2 10*3/uL [facility] Phone: Comp Metabolic Profon 2020 (cont.) Normal [facility] Comment on above: Result Comment: Aver age GFR for 30-39 years old: 107 mL/min/1.73sq m Chronic Kidney Disease: <60 mL/min/1.73sq m Kidney failure: <15 mL/min/1.73sq m eGFR calculated using average adult body mass. Additional eGFR calculator available at: http://[email or web address].com/multiple_crcl_2011.htm Performed By: #### I PF, CBC, CP, HCG #### [facility] [address] [place] [address] [employer]: Mateo Mir MD #### HIVCMB, PHEP #### [facility] [employer] [address] [place] [id number] [employer]: Valdo Diaz MD Albumin [Mass/Vol] 3.6 g/dL Normal 3.5-5.2 [facility] Comment on above: Performed By: #### I PF, CBC, CP, HCG #### [facility] [address] [place] [address] Dr. [place], [place] [id number] [employer]: Mateo Mir MD #### HIVCMB, PHEP #### [address] [id number] [employer]: Valdo Diaz MD Albumin/Glob Ratio 1.2 Normal 1.0-2.5 [facility] Comment on above: Performed By: #### I PF, CBC, CP, HCG #### [address] [place] [id number] [employer]: Mateo Mir MD #### HIVCMShavon, PHEP #### [address] [id number] [employer]: Valdo Diaz MD Alkaline Phos 174 U/L High 35-104 [facility] Comment on above: Performed By: #### I PF, CBC, CP, HCG #### [address] [place] [id number] [employer]: Mateo Mir MD #### HIVCMB, PHEP #### [address] [id number] [employer]: Valdo Diaz MD ALT [Catalytic activity/Vol] 65 U/L High 5-33 [facility] Comment on above: Performed By: #### I PF, CBC, CP, HCG #### [address] [place] [address] [employer]: Mateo Mir MD #### HIVCMB, PHEP #### [address] [id number] [employer]: Valdo Diaz MD Anion gap [Moles/Vol] 8 mmol/L Low 9-17 [facility] Comment on above: Performed By: #### I PF, CBC, CP, HCG #### [facility] [address] [place] [address] Dr. [place] [id number] [employer]: Mateo Mir MD #### HIVCMB, PHEP #### [address] [phone] [employer]: Valdo Diaz MD AST [Catalytic activity/Vol] 42 U/L High <32 [facility] Comment on above: Performed By: #### I PF, CBC, CP, HCG #### [address] [place] [id number] [employer]: Mateo Mir MD #### HIVCMB, PHEP #### [address] [id number] [employer]: Valdo Diaz MD Bilirubin [Mass/Vol] 0.20 mg/dL Low 0.3-1.2 [facility] Comment on above: Performed By: #### I PF, CBC, CP, HCG #### [address] [place] [id number] [employer]: Mateo Mir MD #### HIVCMB, PHEP #### [address] [address] [employer]: Valdo Diaz MD BUN/CRE Ratio 12 Normal 9-20 [facility] Comment on above: Performed By: #### I PF, CBC, CP, HCG #### [address] [place] [id number] [employer]: Mateo Mir MD #### HIVCMB, PHEP #### [address] [address] [employer]: Valdo Diaz MD Calcium [Mass/Vol] 9.2 mg/dL Normal 8.6-10.4 [facility] Comment on above: Performed By: #### I PF, CBC, CP, HCG #### [facility] [address] [place] [address] Dr. [place] [id number] [employer]: Mateo Mir MD #### HIVCMB, PHEP #### [address] [phone] [employer]: Valdo Diaz MD Chloride [Moles/Vol] 107 mmol/L Normal 98-107 [facility] Comment on above: Performed By: #### I PF, CBC, CP, HCG #### [address] [place] [id number] [employer]: Mateo Mir MD #### HIVCMB, PHEP #### [address] [phone] [employer]: Valdo Diaz MD CO2 [Moles/Vol] 26 mmol/L Normal 20-31 [facility] Comment on above: Performed By: #### I PF, CBC, CP, HCG #### [address] [place] [id number] [employer]: Mateo Mir MD #### HIVCMB, PHEP #### [address] [phone] [employer]: Valdo Diaz MD Creatinine [Mass/Vol] 0.67 mg/dL Normal 0.50-0.90 [facility] Comment on above: Performed By: #### I PF, CBC, CP, HCG #### [address] [place] [address] [employer]: Mateo Mir MD #### HIVCMB, PHEP #### [address] [phone] [employer]: Valdo Diaz MD GFR, Amer >60 Normal >60 [facility] Comment on above: Performed By: #### I PF, CBC, CP, HCG #### [address] [place] [address] [employer]: Mateo Mir MD #### HIVCMB, PHEP #### [address] [id number] [employer]: Valdo Diaz MD GFR,non Amer >60 Normal >60 [facility] Comment on above: Performed By: #### I PF, CBC, CP, HCG #### [address] [place] [address] [employer]: Mateo Mir MD #### HIVCMB, PHEP #### [address] [phone] [employer]: Valdo Diaz MD Glucose [Mass/Vol] 99 mg/dL Normal 70-99 [facility] Comment on above: Performed By: #### I PF, CBC, CP, HCG #### [address] [place] [address] [employer]: Mateo Mir MD #### HIVCMB, PHEP #### [address] [id number] [employer]: Valdo Diaz MD Potassium [Moles/Vol] 4.2 mmol/L Normal 3.7-5.3 [facility] Comment on above: Performed By: #### I PF, CBC, CP, HCG #### [address] [place] [address] [employer]: Mateo Mir MD #### HIVCMB, PHEP #### [address] [place], [place] [phone] [employer]: Valdo Diaz MD Protein [Mass/Vol] 6.6 g/dL Normal 6.4-8.3 [facility] Comment on above: Performed By: #### I PF, CBC, CP, HCG #### [address] [place] [address] [employer]: Mateo Mir MD #### HIVCMB, PHEP #### [address] [place], [place] [phone] [employer]: Valdo Diaz MD Sodium [Moles/Vol] 141 mmol/L Normal 135-144 [facility] Comment on above: Performed By: #### I PF, CBC, CP, HCG #### [address] [place] [address] [employer]: Mateo Mir MD #### HIVCMB, PHEP #### [address] [place], [place] [phone] [employer]: Valdo Diaz MD Staging: Normal [facility] Comment on above: Result Comment: Stag e 1: Some kidney damage normal GFR Stage 2: Mild kidney damage GFR 60-89 Stage 3: Moderate kidney damage GFR 30-59 Stage 4: Severe kidney damage GFR 15-29 Stage 5: Severe kidney damage GFR <15 ESRD - chronic treatment by dialysis or transplant Performed By: #### I PF, CBC, CP, HCG #### [address] [place] [address] [employer]: Mateo Mir MD #### HIVCMB, PHEP #### [address] [place], [place] [phone] [employer]: Valdo Diaz MD Urea nitrogen [Mass/Vol] 8 mg/dL Normal 6-20 [facility] Comment on above: Performed By: #### I PF, CBC, CP, HCG #### [address] [place] [address] [employer]: Mateo Mir MD #### HIVCMB, PHEP #### [facility] [address] [phone] [employer]: Valdo Diaz MD Comprehensive Metabolic Pane lOrdered By: Arie Hernandez on 10-27-2020 Albumin [Mass/Vol] 3.6 g/dL 3.5 - 5.2 g/dL [facility] Work Phone: Albumin/Globulin [Mass ratio] 1.2 {ratio} [facility] Work Phone: ALP (Bld) [Catalytic activity/Vol] 174 U/L High 35 - 104 U/L [facility] Phone: ALT [Catalytic activity/Vol] 65 U/L High 5 - 33 U/L [facility] Phone: Anion gap [Moles/Vol] 8 mmol/L Low 9 - 17 mmol/L [facility] Phone: AST [Catalytic activity/Vol] 42 U/L High <32 [facility] Phone: Bilirubin [Mass/Vol] 0.20 mg/dL Low 0.3 - 1.2 mg/dL [facility] Phone: Calcium [Mass/Vol] 9.2 mg/dL 8.6 - 10. 4 mg/dL [facility] Phone: Chloride [Moles/Vol] 107 mmol/L 98 - 107 mmol/L [facility] Phone: CO2 [Moles/Vol] 26 mmol/L 20 - 31 mmol/L [facility] Phone: Creatinine [Mass/Vol] 0.67 mg/dL 0.50 - 0.90 mg/dL [facility] Phone: Free PSA/Total PSA [Mass fraction] 6.6 g/dL 6.4 - 8.3 g/dL [employer] Phone: GFR >60 >60 mL/min [facility] Work Phone: GFR Non- >60 >60 mL/min [facility] Phone: Glucose [Mass/Vol] 99 mg/dL 70 - 99 mg/dL [facility] Work Phone: Interpretation and review of laboratory results Abnormal [facility] Phone: Potassium [Moles/Vol] 4.2 mmol/L 3.7 - 5.3 mmol/L [facility] Phone: Sodium [Moles/Vol] 141 mmol/L 135 - 144 mmol/L [facility] Phone: Urea nitrogen (BldV) [Mass/Vol] 8 mg/dL 6 - 20 mg/dL [facility] Phone: Urea nitrogen/Creatinine (Bld) [Mass ratio] 12 [facility] Phone: HCG Qualitative, SerumOrdere d By: Arie Hernandez on 10-27-2020 hCG Qual Negative NEGATIVE [facility] Phone: Comment on above: Specimens with hCG l evels near the threshold of the test (25 mIU/mL) may give a negative or indeterminate result. In such cases, another test should be performed with a new specimen in 48-72 hours. If early is suspected clinically in this setting, correlation with quantitative serum b-hCG level is suggested. [employer] has confirmed the use of plasma for this test. This has not been cleared or approved by the U.S. Food and Drug Administration. The FDA has determined that such clearance is not necessary. HCG Screen, Bloodon 10-28-19 21 HCG Screen, Blood Negative Normal [facility] Comment on above: Result Comment: Spec imens with hCG levels near the threshold of the test (25 mIU/mL) may give a negative or indeterminate result. In such cases, another test should be performed with a new specimen in 48-72 hours. If early is suspected clinically in this setting, correlation with quantitative serum b-hCG level is suggested. [employer] has confirmed the use of plasma for this test. This has not been cleared or approved by the U.S. Food and Drug Administration. The FDA has determined that such clearance is not necessary. Performed By: #### I PF, HCG, CP, CBC #### [address] [place] [address] [employer]: Fidel Hallman MD #### HIVCMB, PHEP #### [address] [place], [place] [phone] [employer]: Valdo Diaz MD HIV Ag/Abon 10-27-2020 HIV Ag/Ab Non-Reactive Normal [facility] Comment on above: Result Comment: No l aboratory evidence of HIV infection. If acute HIV infection is suspected, consider testing for HIV-1 RNA. Performed By: #### I PF, HCG, CP, CBC #### [address] [place] [address] [employer]: Fidel Hallman MD #### HIVCMB, PHEP #### [address] [phone] [employer]: Valdo Diaz MD HIV ScreenOrdered By: Arie Hernandez on 10-27-2020 HIV Ag/Ab Non-Reactive NONREACTIVE [facility] Work Phone: Comment on above: No laboratory eviden ce of HIV infection. If acute HIV infection is suspected, consider testing for HIV-1 RNA. Hepatitis Acute [facility] [place] 10-27 Hep A Ab,IgM Non-Reactive Normal NR [facility] Comment on above: Performed By: #### I PF, HCG, CP, CBC #### [address] [place] [address] [employer]: Fidel Hallman MD #### HIVCMB, PHEP #### [address] [address] [employer]: Valdo Diaz MD Hep B Core Ab,IgM Non-Reactive Normal [facility] Comment on above: Performed By: #### I PF, HCG, CP, CBC #### [facility] [address] [place] [address] [employer]: Fidel Hallman MD #### HIVCMB, PHEP #### [address] [phone] [employer]: Valdo Diaz MD Hep B Surf Ag Non-Reactive Normal NR [facility] Comment on above: Performed By: #### I PF, HCG, CP, CBC #### [facility] [address] [place] [address] [employer]: Fidel Hallman MD #### HIVCMB, PHEP #### [address] [phone] [employer]: Valdo Diaz MD Hep C Ab Reactive Abnormal [facility] Comment on above: Result Comment: The hepatitis C procedure used in our laboratory is a Chemiluminescent test specific for three recombinant HCV antigens. A negative anti-HCV result indicates that the antibodies to hepatitis C virus are not present at this time. Individuals with reactive anti-HCV should be considered infected and infectious until proven otherwise. Confirmation of all equivocal or reactive results is recommended by ordering HCV RNA by PCR. Results reported to the appropriate Health Department Performed By: #### I PF, HCG, CP, CBC #### [address] [place] [address] [employer]: Fidel Hallman MD #### HIVCMB, PHEP #### [address] [phone] [employer]: Valdo Diaz MD Hepatitis Panel, AcuteOrdere d By: Arie Hernandez on 10-27-2020 HAV IgM IA Qn (S) Non-Reactive NONREACTIVE [facility] Work Phone: Hep B Core Ab, IgM Non-Reactive NONREACTIVE [facility] Work Phone: Hepatitis B Surface Ag Non-Reactive NONREACTIVE [facility] Work Phone: Hepatitis C Ab Reactive Abnormal NONREACTIVE [facility] Work Phone: Comment on above: The hepatitis C procedure used in our laboratory is a Chemiluminescent test specific for three recombinant HCV antigens. A negative anti-HCV result indicates that the antibodies to hepatitis C virus are not present at this time. Individuals with reactive anti-HCV should be considered infected and infectious until proven otherwise. Confirmation of all equivocal or reactive results is recommended by ordering HCV RNA by PCR. Results reported to the appropriate Health Department Interpretation and review of laboratory results Abnormal [facility] Phone: Immature Platelet FractionOr dered By: Arie Hernandez on 10-27-2020 Interpretation and review of laboratory results Abnormal [facility] Phone: Platelet, Fluorescence 123 Low [employer] Phone: Platelet, Immature Fraction 15.9 % High 1.1 - 10.3 % [facility] Phone: Laboratory - Chemistry and C hemistry - challengeOrdered By: Arie Hernandez on 10-27-2020 GFR/1.73 sq M.predicted MDRD (S/P/Bld) [Vol rate/Area] [facility] Phone: Comment on above: Average GFR for 30-3 9 years old: 107 mL/min/1.73sq m Chronic Kidney Disease: <60 mL/min/1.73sq m Kidney failure: <15 mL/min/1.73sq m eGFR calculated using average adult body mass. Additional eGFR calculator available at: http://www.[place].[employer] [place]/multiple_crcl_2012.htm Stage 1: Some kidney damage normal GFR Stage 2: Mild kidney damage GFR 60-89 Stage 3: Moderate kidney damage GFR 30-59 Stage 4: Severe kidney damage GFR 15-29 Stage 5: Severe kidney damage GFR <15 ESRD - chronic treatment by dialysis or transplant PLT, Immature Fract.on 10-27 Platelet, Fluoresc. 123 k/uL Low 138-453 [facility] Comment on above: Performed By: #### I PF, CBC, CP, HCG #### [facility] [address] [place] [address] [employer]: Mateo Mir MD #### HIVCMB, PHEP #### [facility] [address] [place] [address] [employer]: Valdo Diaz MD PLT, Immature Fract. 15.9 % High 1.1-10.3 [facility] Comment on above: Performed By: #### I PF, CBC, CP, HCG #### [facility] [address] [place] [address] [employer]: Mateo Mir MD #### HIVCMB, PHEP #### [facility] [address] [place] [address] [employer]: Valdo Diaz MD HCV RNA,Quant,PCRon 05-13-20 20 HCV RNA,Quant,PCR Specimen Description .PLASMA Special Requests QUALITATIVE Direct Exam HCV RNA DETECTED 318,000 IU/ML (5.50 LOG IU/ML) This test is a sensitive method for quantitating HCV RNA viral loads in plasma. It utilizes RT-PCR in the FDA approved Jem Ampliprep/Taqman 48 System. This test is intended for detecting and quantifying HCV RNA viral loads in the range of 15 IU/mL to 100,000,000 IU/mL (1.18 log IU/mL to 8.00 log IU/mL). Patients should have confirmed HCV infection prior to RNA quantification. This test has been developed to monitor disease progression and efficacy of anti-HCV drug therapy. This test has been optimized for HCV genotypes 1-6. Results reported to the appropriate Health Department Report Status FINAL 05/13/2020 Normal [facility] Comment on above: Performed By: #### I PF, HCG, CP, CBC #### [facility] [address] [place], [place] [phone] [employer]: Fidel Hallman MD #### HIVCMB, PHEP #### [facility] [address] [place] [address] [employer]: Valdo Diaz MD CBCon 05-12-2020 Erythrocyte distribution width (RBC) [Ratio] 14.7 % High 11.8-14.4 [facility] Comment on above: Performed By: #### I PF, HCG, CP, CBC #### [address] [place] [id number] [employer]: Fidel Hallman MD #### HIVCMB, PHEP #### [address] [phone] [employer]: Valdo Diaz MD Hematocrit (Bld) [Volume fraction] 39.7 % Normal 36.3-47.1 [facility] Comment on above: Performed By: #### I PF, HCG, CP, CBC #### [address] [place] [id number] [employer]: Fidel Hallman MD #### HIVCMB, PHEP #### [address] [phone] [employer]: Valdo Diaz MD Hemoglobin (Bld) [Mass/Vol] 12.2 g/dL Normal 11.9-15.1 [facility] Comment on above: Performed By: #### I PF, HCG, CP, CBC #### [address] [place] [id number] [employer]: Fidel Hallman MD #### HIVCMB, PHEP #### [address] [phone] [employer]: Valdo Diaz MD MCH (RBC) [Entitic mass] 27.6 pg Normal 25.2-33.5 [facility] Comment on above: Performed By: #### I PF, HCG, CP, CBC #### [address] [place] [address] [employer]: Fidel Hallman MD #### HIVCMB, PHEP #### [address] [address] [employer]: Valdo Diaz MD MCHC (RBC) [Mass/Vol] 30.7 g/dL Normal 28.4-34.8 [facility] Comment on above: Performed By: #### I PF, HCG, CP, CBC #### [address] [place] [address] [employer]: Fidel Hallman MD #### HIVCMB, PHEP #### [address] [address] [employer]: Valdo Diaz MD MCV (RBC) [Entitic vol] 89.8 fL Normal 82.6-102.9 [facility] Comment on above: Performed By: #### I PF, HCG, CP, CBC #### [address] [place] [address] [employer]: Fidel Hallman MD #### HIVCMB, PHEP #### [place] [address] [employer]: Valdo Diaz MD NRBC Automated 0.0 per 100 WBC Normal 0.0 [facility] Comment on above: Performed By: #### I PF, HCG, CP, CBC #### [address] [place] [address] [employer]: Fidel Hallman MD #### HIVCMB, PHEP #### [place] [address] [employer]: Valdo Diaz MD Platelet Count See Reflexed IPF Result Normal 138-453 [facility] Comment on above: Performed By: #### I PF, HCG, CP, CBC #### [address] [place] [address] [employer]: Fidel Hallman MD #### HIVCMB, PHEP #### [address] [place] [address] [employer]: Valdo Diaz MD RBC (Bld) [#/Vol] 4.42 10*6/uL Normal 3.95-5.11 [facility] Comment on above: Performed By: #### I PF, HCG, CP, CBC #### [address] [place] [address] [employer]: Fidel Hallman MD #### HIVCMB, PHEP #### [address] [address] [employer]: Valdo Diaz MD WBC (Bld) [#/Vol] 8.9 10*3/uL Normal 3.5-11.3 [facility] Comment on above: Performed By: #### I PF, HCG, CP, CBC #### [address] [place] [id number] [employer]: Fidel Hallman MD #### HIVCMB, PHEP #### [address] [phone] [employer]: Valdo Diaz MD MPV NOT REPORTED Normal 8.1-13.5 [facility] Comment on above: Performed By: #### I PF, HCG, CP, CBC #### [address] [place] [id number] [employer]: Fidel Hallman MD #### HIVCMB, PHEP #### [address] [phone] [employer]: Valdo Diaz MD Erythrocyte distribution width (RBC) [Ratio] 14.7 % High 11.8 - 14.4 % [place], [place] Hematocrit (Bld) [Volume fraction] 39.7 % 36.3 - 47.1 % [place] Hemoglobin (Bld) [Mass/Vol] 12.2 g/dL 11.9 - 15.1 g/dL [place] Interpretation and review of laboratory results Abnormal [place] MCH (RBC) [Entitic mass] 27.6 pg 25.2 - 33.5 pg [place] MCHC (RBC) [Mass/Vol] 30.7 g/dL 28.4 - 34.8 g/dL [place] MCV (RBC) [Entitic vol] 89.8 fL 82.6 - 102.9 fL [place] Platelet mean volume (Bld) [Entitic vol] NOT REPORTED 8.1 - 13.5 fL [place], [place] Platelets (Bld) [#/Vol] See Reflexed IPF Result [place] RBC (Bld) [#/Vol] 4.42 10*6/uL 3.95 - 5.1 1 m/uL [place] WBC (Bld) [#/Vol] 0.0 10*3/uL 0.0 per 100 WBC M [place] WBC (Bld) [#/Vol] 8.9 10*3/uL [place] Comp Metabolic Profon 2019 (cont.) Normal [facility] Comment on above: Result Comment: Aver age GFR for 30-39 years old: 107 mL/min/1.73sq m Chronic Kidney Disease: <60 mL/min/1.73sq m Kidney failure: <15 mL/min/1.73sq m eGFR calculated using average adult body mass. Additional eGFR calculator available at: http://www.[place]/multiple_crcl_2011.htm Performed By: #### I PF, HCG, CP, CBC #### [facility] [address] [place] [address] [employer]: Fidel Hallman MD #### HIVCMB, PHEP #### [facility] [address] [place] [address] [employer]: Valdo Diaz MD Albumin [Mass/Vol] 3.9 g/dL Normal 3.5-5.2 [facility] Comment on above: Performed By: #### I PF, HCG, CP, CBC #### [facility] [address] [place], [place] [id number] [employer]: Fidel Hallman MD #### HIVCMB, PHEP #### [address] [phone] [employer]: Valdo Diaz MD Albumin/Glob Ratio 1.3 Normal 1.0-2.5 [facility] Comment on above: Performed By: #### I PF, HCG, CP, CBC #### [facility] [address] [place], [place] [phone] [employer]: Fidel Hallman MD #### HIVCMB, PHEP #### [address] [phone] [employer]: Valdo Diaz MD Alkaline Phos 122 U/L High 35-104 [facility] Comment on above: Performed By: #### I PF, HCG, CP, CBC #### [facility] [address] [place], [place] [phone] [employer]: Fidel Hallman MD #### HIVCMB, PHEP #### [address] [address] [employer]: Valdo Diaz MD ALT [Catalytic activity/Vol] 98 U/L High 5-33 [facility] Comment on above: Performed By: #### I PF, HCG, CP, CBC #### [facility] [address] [place], [place] 0180683 [employer]: Fidel Hallman MD #### HIVCMB, PHEP #### [address] [address] [employer]: Valdo Diaz MD Anion gap [Moles/Vol] 11 mmol/L Normal 9-17 [facility] Comment on above: Performed By: #### I PF, HCG, CP, CBC #### [facility] [address] [place] [place], [place] [id number] [employer]: Fidel Hallman MD #### HIVCMB, PHEP #### [address] [phone] [employer]: Valdo Diaz MD AST [Catalytic activity/Vol] 51 U/L High <32 [facility] Comment on above: Performed By: #### I PF, HCG, CP, CBC #### [facility] [address] [place], [place] 434[address] [employer]: Fidel Hallman MD #### HIVCMB, PHEP #### [address] [id number] [employer]: Valdo Diaz MD Bilirubin [Mass/Vol] 0.20 mg/dL Low 0.3-1.2 [facility] Comment on above: Performed By: #### I PF, HCG, CP, CBC #### [facility] [address] [place], [place] [id number] [employer]: Fidel Hallman MD #### HIVCMB, PHEP #### [address] [address] [employer]: Valdo Diaz MD BUN/CRE Ratio 14 Normal 9-20 [facility] Comment on above: Performed By: #### I PF, HCG, CP, CBC #### [facility] [address] [place], [place] 7663183 [employer]: Fidel Hallman MD #### HIVCMB, PHEP #### [address] [address] [employer]: Valdo Diaz MD Calcium [Mass/Vol] 9.3 mg/dL Normal 8.6-10.4 [facility] Comment on above: Performed By: #### I PF, HCG, CP, CBC #### [facility] [address] [place] [place], [place] [id number] [employer]: Fidel Hallman MD #### HIVCMB, PHEP #### [address] [place], [place] [phone] [employer]: Valdo Diaz MD Chloride [Moles/Vol] 109 mmol/L High 98-107 [facility] Comment on above: Performed By: #### I PF, HCG, CP, CBC #### [facility] [address] [place] [place], [place] [phone] [employer]: Fidel Hallman MD #### HIVCMB, PHEP #### [address] [phone] [employer]: Valdo Diaz MD CO2 [Moles/Vol] 23 mmol/L Normal 20-31 [facility] Comment on above: Performed By: #### I PF, HCG, CP, CBC #### [facility] [address] [place] [place], [place] [id number] [employer]: Fidel Hallman MD #### HIVCMB, PHEP #### [address] [phone] [employer]: Valdo Diaz MD Creatinine [Mass/Vol] 0.69 mg/dL Normal 0.50-0.90 [facility] Comment on above: Performed By: #### I PF, HCG, CP, CBC #### [facility] [address] [place], [place] [phone] [employer]: Fidel Hallman MD #### HIVCMB, PHEP #### [address] [phone] [employer]: Valdo Diaz MD GFR, Amer >60 Normal >60 [facility] Comment on above: Performed By: #### I PF, HCG, CP, CBC #### [address] [place], [place] 4508083 [employer]: Fidel aHllman MD #### HIVCMB, PHEP #### [address] [id number] [employer]: Valdo Diaz MD GFR,non Amer >60 Normal >60 [facility] Comment on above: Performed By: #### I PF, HCG, CP, CBC #### [address] [place], [place] 1687483 [employer]: Fidel Hallman MD #### HIVCMB, PHEP #### [address] [id number] [employer]: Valdo Diaz MD Glucose [Mass/Vol] 154 mg/dL High 70-99 [facility] Comment on above: Performed By: #### I PF, HCG, CP, CBC #### [address] [place], [place] [id number] [employer]: Fidel Hallman MD #### HIVCMB, PHEP #### [address] [phone] [employer]: Valdo Diaz MD Potassium [Moles/Vol] 3.9 mmol/L Normal 3.7-5.3 [facility] Comment on above: Performed By: #### I PF, HCG, CP, CBC #### [address] [place], [place] [id number] [employer]: Fidel Hallman MD #### HIVCMB, PHEP #### [address] [id number] [employer]: Valdo Diaz MD Protein [Mass/Vol] 7.0 g/dL Normal 6.4-8.3 [facility] Comment on above: Performed By: #### I PF, HCG, CP, CBC #### [address] [place], [place] [id number] [employer]: Fidel Hallman MD #### HIVCMB, PHEP #### [id number] [place] [address] [employer]: Valdo Diaz MD Sodium [Moles/Vol] 143 mmol/L Normal 135-144 [facility] Comment on above: Performed By: #### I PF, HCG, CP, CBC #### [address] [place], [place] [id number] [employer]: Fidel Hallman MD #### HIVCMB, PHEP #### [address] [id number] [employer]: Valdo Diaz MD Staging: Normal [facility] Comment on above: Result Comment: Stag e 1: Some kidney damage normal GFR Stage 2: Mild kidney damage GFR 60-89 Stage 3: Moderate kidney damage GFR 30-59 Stage 4: Severe kidney damage GFR 15-29 Stage 5: Severe kidney damage GFR <15 ESRD - chronic treatment by dialysis or transplant Performed By: #### I PF, HCG, CP, CBC #### [address] [place], [place] [id number] [employer]: Fidel Hallman MD #### HIVCMB, PHEP #### [address] [address] [employer]: Valdo Diaz MD Urea nitrogen [Mass/Vol] 10 mg/dL Normal 6-20 [facility] Comment on above: Performed By: #### I PF, HCG, CP, CBC #### [address] [place], [place] [id number] [employer]: Fidel Hallman MD #### HIVCMB, PHEP #### [address] [address] [employer]: Valdo Diaz MD [facility] Metabolic Pane angélica 05-12-2020 Albumin [Mass/Vol] 3.9 g/dL 3.5 - 5.2 g/dL [place], [place] Albumin/Globulin [Mass ratio] 1.3 {ratio} [place], [place] ALP [Catalytic activity/Vol] 122 U/L High 35 - 104 U/L [place] ALT [Catalytic activity/Vol] 98 U/L High 5 - 33 U/L [place] Anion gap [Moles/Vol] 11 mmol/L 9 - 17 mmol/L [place] AST [Catalytic activity/Vol] 51 U/L High <32 [place] Bilirubin Ql (U) 0.20 mg/dL Low 0.3 - 1.2 mg/dL [place], [place] Bun/Cre Ratio 14 [place], [place] Calcium [Mass/Vol] 9.3 mg/dL 8.6 - 10. 4 mg/dL [place], [place] Chloride [Moles/Vol] 109 mmol/L High 98 - 107 mmol/L [place] CO2 [Moles/Vol] 23 mmol/L 20 - 31 mmol/L [place] Creatinine [Mass/Vol] 0.69 mg/dL 0.5 - 0.9 mg/d L [place] GFR >60 >60 mL/min [place], [place] GFR Non- >60 >60 mL/min [place] Glucose [Mass/Vol] 154 mg/dL High 70 - 99 mg/dL [place], [place] Interpretation and review of laboratory results Abnormal [place] Potassium [Moles/Vol] 3.9 mmol/L 3.7 - 5.3 mmol/L [place] Protein [Mass/Vol] 7.0 g/dL 6.4 - 8.3 g/dL [place], [place] Sodium [Moles/Vol] 143 mmol/L 135 - 144 mmol/L [place] Urea nitrogen [Mass/Vol] 10 mg/dL 6 - 20 mg/dL [place] HCG Qualitative, Serumon hCG Qual Negative NEGATIVE [place] Comment on above: Specimens with hCG l evels near the threshold of the test (25 mIU/mL) may give a negative or indeterminate result. In such cases, another test should be performed with a new specimen in 48-72 hours. If early is suspected clinically in this setting, correlation with quantitative serum b-hCG level is suggested. [facility] has confirmed the use of plasma for this test. This has not been cleared or approved by the U.S. Food and Drug Administration. The FDA has determined that such clearance is not necessary. HCG Screen, Bloodon 05-12-20 20 HCG Screen, Blood Negative Normal [facility] Comment on above: Result Comment: Spec imens with hCG levels near the threshold of the test (25 mIU/mL) may give a negative or indeterminate result. In such cases, another test should be performed with a new specimen in 48-72 hours. If early is suspected clinically in this setting, correlation with quantitative serum b-hCG level is suggested. [facility] has confirmed the use of plasma for this test. This has not been cleared or approved by the U.S. Food and Drug Administration. The FDA has determined that such clearance is not necessary. Performed By: #### I PF, HCG, CP, CBC #### [address] [place] [address] [employer]: Fidel Hallman MD #### HIVCMB, PHEP #### [address] [id number] [employer]: Valdo Diaz MD HIV Ag/Abon 05-12-2020 HIV Ag/Ab Non-Reactive Normal NR [facility] Comment on above: Result Comment: No l aboratory evidence of HIV infection. If acute HIV infection is suspected, consider testing for HIV-1 RNA. Performed By: #### I PF, HCG, CP, CBC #### [facility] [address] [place] [address] [place] [address] [employer]: Fidel Hallman MD #### HIVCMB, PHEP #### [address] [id number] [employer]: Valdo Diaz MD HIV Screenon 05-12-2020 HIV Ag/Ab NONREACTIVE NONREACTIVE [place], [place] Comment on above: No laboratory eviden ce of HIV infection. If acute HIV infection is suspected, consider testing for HIV-1 RNA. Hepatitis Acute [facility] [place] 05-12 Hep A Ab,IgM Non-Reactive Normal NR [facility] Comment on above: Performed By: #### I PF, HCG, CP, CBC #### [address] [place], [place] [id number] [employer]: Fidel Hallman MD #### HIVCMB, PHEP #### [address] [id number] [employer]: Valdo Diaz MD Hep B Core Ab,IgM Non-Reactive Normal [facility] Comment on above: Performed By: #### I PF, HCG, CP, CBC #### [address] [place], [place] [phone] [employer]: Fidel Hallman MD #### HIVCMB, PHEP #### [address] [address] [employer]: Valdo Diaz MD Hep B Surf Ag Non-Reactive Normal [facility] Comment on above: Performed By: #### I PF, HCG, CP, CBC #### [address] [place], [place] [phone] [employer]: Fidel Hallman MD #### HIVCMB, PHEP #### [address] [address] [employer]: Valdo iDaz MD Hep C Ab Reactive Abnormal [facility] Comment on above: Result Comment: The hepatitis C procedure used in our laboratory is a Chemiluminescent test specific for three recombinant HCV antigens. A negative anti-HCV result indicates that the antibodies to hepatitis C virus are not present at this time. Individuals with reactive anti-HCV should be considered infected and infectious until proven otherwise. Confirmation of all equivocal or reactive results is recommended by ordering HCV RNA by PCR. Results reported to the appropriate Health Department Performed By: #### I PF, HCG, CP, CBC #### [facility] [address] [place] [address] [employer]: Fidel Hallman MD #### HIVCMB, PHEP #### [facility] [address] [place] [address] [employer]: Valdo Diaz MD Hepatitis Panel, Acuteon HAV IgM IA Qn (S) NONREACTIVE NONREACTIVE [place] Hep B Core Ab, IgM NONREACTIVE NONREACTIVE [place], [place] Hepatitis B Surface Ag NONREACTIVE NONREACTIVE [place] Hepatitis C Ab REACTIVE Abnormal NONREACTIVE [place], [place] Comment on above: The hepatitis C procedure used in our laboratory is a Chemiluminescent test specific for three recombinant HCV antigens. A negative anti-HCV result indicates that the antibodies to hepatitis C virus are not present at this time. Individuals with reactive anti-HCV should be considered infected and infectious until proven otherwise. Confirmation of all equivocal or reactive results is recommended by ordering HCV RNA by PCR. Results reported to the appropriate Health Department Interpretation and review of laboratory results Abnormal [place] Immature Platelet Fractionon 05-12-2020 Interpretation and review of laboratory results Abnormal [place] Platelet, Fluorescence 103 Low [place] Platelet, Immature Fraction 15.6 % High 1.1 - 10.3 % [place] Metabolic Panelon 05-12-2020 GFR/1.73 sq M predicted among non-blacks MDRD (S/P/Bld) [Vol rate/Area] [place], [place] Comment on above: Average GFR for 30-3 9 years old: 107 mL/min/1.73sq m Chronic Kidney Disease: <60 mL/min/1.73sq m Kidney failure: <15 mL/min/1.73sq m eGFR calculated using average adult body mass. Additional eGFR calculator available at: [email or web address] Stage 1: Some kidney damage normal GFR Stage 2: Mild kidney damage GFR 60-89 Stage 3: Moderate kidney damage GFR 30-59 Stage 4: Severe kidney damage GFR 15-29 Stage 5: Severe kidney damage GFR <15 ESRD - chronic treatment by dialysis or transplant PLT, Immature Fract.on 05-12 Platelet, Fluoresc. 103 k/uL Low 138-453 [facility] Comment on above: Performed By: #### I PF, HCG, CP, CBC #### [facility] [address] [place] [id number] [employer]: Fidel Hallman MD #### HIVCMB, PHEP #### [address] [place], [place] [id number] [employer]: Valdo Diaz MD PLT, Immature Fract. 15.6 % High 1.1-10.3 [facility] Comment on above: Performed By: #### I PF, HCG, CP, CBC #### [facility] [address] [place] [address] [employer]: Fidel Hallman MD #### HIVCMB, PHEP #### [address] [place], [place] [id number] [employer]: Valdo Diaz MD Ur Opiate Conf-Mayoon 2019 Ur Codeine-Hung 64 ng/mL Normal Cutoff: 25 [facility] Comment on above: Performed By: #### C BC #### [facility] [address] [place] [id number] Ur Dihydrocodeine-[place] Negative Normal Cutoff: 25 [facility] Comment on above: Performed By: #### C BC #### [facility] [address] [place] [address] Ur Hydrocodone-[place] Negative Normal Cutoff: 25 [facility] Comment on above: Performed By: #### C BC #### [facility] [address] [place] [address] Ur Hydromorphone-[place] Negative Normal Cutoff: 25 [facility] Comment on above: Performed By: #### C BC #### [address] [address] Ur Morphine-Hung 1231 ng/mL Normal Cutoff: 25 [facility] Comment on above: Performed By: #### C BC #### [address] [address] Ur Naloxone-[place] Negative Normal Cutoff: 25 [facility] Comment on above: Performed By: #### C BC #### [address] [address] Ur Norhydrocodone-Hung Negative Normal Cutoff: 25 [facility] Comment on above: Performed By: #### C BC #### [address] [address] Ur Noroxycodone-Hung Negative Normal Cutoff: 25 [facility] Comment on above: Performed By: #### C BC #### [address] [address] Ur Noroxymorphone-Hung Negative Normal Cutoff: 25 [facility] Comment on above: Performed By: #### C BC #### [address] [address] Ur Opiates Interp-Hung Positive Normal [facility] Comment on above: Result Comment: ADDITIONAL INFORMATION This report is intended for use in clinical monitoring and management of patients. It is not intended for use in employment-related testing. This test was developed and its performance characteristics determined by [facility] in a manner consistent with CLIA requirements. This test has not been cleared or approved by the U.S. Food and Drug Administration. Test Performed by: [facility] - [address] [address] [employer]: Santiago Mendoza M.D. Ph.D.; CLIA# [id number] Performed By: #### C BC #### [address] [address] Ur Oxycodone-Hung Negative Normal Cutoff: 25 [facility] Comment on above: Performed By: #### C BC #### [address] [address] Ur Oxymorphone-[place] Negative Normal Cutoff: 25 [facility] Comment on above: Performed By: #### C BC #### [address] [address] HBc Total Abs-[facility] 020 HBc Total Ab-[place] Negative Normal Negative [facility] Comment on above: Result Comment: Test Performed by: [place] [address] [employer]: Santiago Mendoza M.D. Ph.D.; CLIA# [id number] Performed By: #### C BC #### [address] [address] HCV RNA Qnt-[facility] 0 HepC RNA PCR Qnt-[place] 362460 IU/mL Abnormal Undetected [facility] Comment on above: Result Comment: Resu lt in log IU/mL is 5.71. ADDITIONAL INFORMATION The quantification range of this assay is 15 to 100,000,000 IU/mL (1.18 log to 8.00 log IU/mL). Testing was performed using the kendrick HCV test ([employer] with the kendrick [id number] System. Test Performed by: [facility] [place] [address] [employer]: Santiago Mendoza M.D. Ph.D.; CLIA# [id number] Performed By: #### C BC #### [address] [address] .eGFRon 12-03-2019 eGFR AA >60 Normal >=60 [facility] Comment on above: Order Comment: Order added by Discern rule Result Comment: Resu lt = 0-14.9 mL/min/1.73 m2 Kidney failure or Dialysis Result = 15-29 mL/min/1.73 m2 Severe decrease in GFR Result = 30-59 mL/min/1.73 m2 Moderate decrease in GFR Result >= 60 mL/min/1.73 m2 Normal or increased GFR Performed By: #### . Automated Diff #### [address] [address] eGFR Non-AA >60 Normal >=60 [facility] Comment on above: Order Comment: Order added by Discern rule Result Comment: Resu lt = 0-14.9 mL/min/1.73 m2 Kidney failure or Dialysis Result = 15-29 mL/min/1.73 m2 Severe decrease in GFR Result = 30-59 mL/min/1.73 m2 Moderate decrease in GFR Result >= 60 mL/min/1.73 m2 Normal or increased GFR Chronic kidney disease is defined as either kidney damage or GFR < 60 mL/min/1.73 m2 for >= 3 months. Kidney damage is defined as pathologic abnormalities or markers of damage including abnormalities in blood or urine tests or imaging studies. This GFR is NOT used for medication dosing. Performed By: #### . Automated Diff #### [address] [address] [facility] 12-03-2019 Albumin [Mass/Vol] 3.4 g/dL Normal 3.2-4.9 [facility] Comment on above: Result Comment: [facility] Laboratory updated the methodology used for albumin testing on 02/06/18. Albumin measurement was performed using a bromcresol purple dye-binding assay. Performed By: #### . Automated Diff #### [address] [address] Albumin/Globulin [Mass ratio] 1.1 {ratio} Normal 1.1-2.2 [facility] Comment on above: Performed By: #### . Automated Diff #### [address] [address] Alk Phos 120 IU/L High 32-91 [facility] Comment on above: Performed By: #### . Automated Diff #### [address] [address] ALT [Catalytic activity/Vol] 76 U/L High 14-54 [facility] Comment on above: Performed By: #### . Automated Diff #### [address] [address] Anion gap [Moles/Vol] 13 mmol/L Normal 7-17 [facility] Comment on above: Performed By: #### . Automated Diff #### [address] [address] AST [Catalytic activity/Vol] 53 U/L High 15-41 [facility] Comment on above: Performed By: #### . Automated Diff #### [address] [address] Bili Total 0.5 mg/dL Normal 0.3-1.2 [facility] Comment on above: Performed By: #### . Automated Diff #### [address] [address] Calcium [Mass/Vol] 8.7 mg/dL Normal 8.5-10.3 [facility] Comment on above: Performed By: #### . Automated Diff #### [address] [address] Chloride [Moles/Vol] 104 mmol/L Normal 98-110 [facility] Comment on above: Performed By: #### . Automated Diff #### [address] [address] CO2 [Moles/Vol] 26 mmol/L Normal 22-32 [facility] Comment on above: Performed By: #### . Automated Diff #### [address] [address] Creatinine [Mass/Vol] 0.75 mg/dL Normal 0.44-1.03 [facility] Comment on above: Performed By: #### . Automated Diff #### [address] [address] Glucose [Mass/Vol] 100 mg/dL High 70-99 [facility] Comment on above: Performed By: #### . Automated Diff #### [address] [place] [address] Potassium [Moles/Vol] 3.7 mmol/L Normal 3.4-4.8 [facility] Comment on above: Performed By: #### . Automated Diff #### [address] [address] Protein [Mass/Vol] 6.5 g/dL Normal 6.5-8.1 [facility] Comment on above: Performed By: #### . Automated Diff #### [address] [address] Sodium [Moles/Vol] 139 mmol/L Normal 133-142 [facility] Comment on above: Performed By: #### . Automated Diff #### [address] [address] Urea nitrogen [Mass/Vol] 15 mg/dL Normal 8-26 [facility] Comment on above: Performed By: #### . Automated Diff #### [address] [address] Urea nitrogen/Creatinine [Mass ratio] 20.0 mg/mg Normal 10.0-20.0 [facility] Comment on above: Performed By: #### . Automated Diff #### [address] [address] Chlam & GC, DNAon 12-03-2019 Chlamydia, DNA Negative Normal Negative [facility] Comment on above: Result Comment: The APTIMA Combo 2 Assay is a target amplification nucleic acid probe test that utilizes target capture for the in-vitro qualitative detection of ribosomal RNA (rRNA) form Chlamydia trachomatis/CT and /or Neisseria gonorrhoeae/GC. A negative result does not preclude the presence of a CT or GC infection because results are dependent of adequate specimen collection, absence of inhibitors and sufficient rRNA to be detected. Results from the APTIMA Combo 2 Assay should be interpreted in conjunction with other laboratory and clinical data available to the clinician. Performed By: #### C BC #### [address] [address] Gonorrhea, DNA Negative Normal Negative [facility] Comment on above: Result Comment: The APTIMA Combo 2 Assay is a target amplification nucleic acid probe test that utilizes target capture for the in-vitro qualitative detection of ribosomal RNA (rRNA) form Chlamydia trachomatis/CT and /or Neisseria gonorrhoeae/GC A negative result does not preclude the presence of a CT or GC infection because results are dependent of adequate specimen collection, absence of inhibitors and sufficient rRNA to be detected. Results from the APTIMA Combo 2 Assay should be interpreted in conjunction with other laboratory and clinical data available to the clinician. Performed By: #### C BC #### [place] [address] Inpatient Clinical Summaryon 12-03-2019 Inpatient Clinical Summary [id number] [place] [address] Clinical Summary Person Information Name: Tory [facility]oples Age: 34 Years : 1985 Sex: Female PCP: Marital Status: Single Phone: PCP: Race: White Ethnicity: Not or Language: Thai Visit Id: Visit Reason: Drug withdrawal Speciality: Acuity: Enc Type: Observation Med Service: X Medication Withdrawal Management Arrival: 12/02/2019 03:53:05 Discharge: Dispo Type: Place in Observation Address: [address] [place] [address] Diagnosis: 1:Heroin addiction; 2:Tobacco user; 3:Transaminitis; 4:Hepatitis C Discharged To: Home Treatments: Devices/Equipment: Professional Skilled Services: Special Services and Community Resources: Child Protective Services, Counseling Mode of Discharge Transportation: Discharge Orders Activity Restrictions No Restrictions Diet Instruction Regular home diet Discharge Special Instructions Avoid high dose tylenol with mildly elevated LFT's likely secondary to underlying Hepatitis C. No more than 3000mg in 24 hours. Make sure that you eat with motrin or Ibuprofen. Do not use naproxen and Ibuprofen in the same 24 hours. Follow up 12/03/19 11:17:00 EDT, Provider: Chasity YEAGER, Tal Wright, 1 to 2 weeks, Hep c. Follow up 12/03/19 12:52:00 EDT, 1 to 2 days, [facility] tomorrow. Allergies No Known Allergies Functional Status: Sensory Deficits: None History of Falls: Mobility Assistance Prior to Admission: ADLs: Independent Gait: Steady Ambulation Assist: Assistive Device: None Special Orthopedic Devices: Current Level of Assistance for Self-Care/Mobility: Cognitive Status: Orientation: Orientation Assessment Oriented x 4 Level of Consciousness: Drowsy Characteristics of Speech: Clear Aspiration Risk: None Affect/Behavior: Calm, Cooperative Laboratory or Other Results This Visit (last charted value for your 12/02/2019 visit) Hematology 12/02/2019 4:43 AM WBC: 10.0 x10 RBC: 4.17 x10 Neutro Auto: 60.2 % -- Normal range between ( 47.2 and 70.8 ) Lymph Auto: 31.5 % -- Normal range between ( 27.2 and 40.8 ) [place] Auto: 4.2 % -- Normal range between ( 3.7 and 11.9 ) Eos Auto: 3.7 % -- Normal range between ( 0.0 and 5.4 ) Basophil Auto: 0.4 % -- Normal range between ( 0.0 and 1.5 ) Baso Absolute: 0.0 x10 MCV: 84.4 fL -- Normal range between ( 80.0 and 100.0 ) MCHC: 33.9 % -- Normal range between ( 31.0 and 37.0 ) Lymph Absolute: 3.2 x10 Hct: 35.2 % -- Normal range between ( 36.0 and 46.0 ) [place] Absolute: 0.4 x10 MCH: 28.6 pg -- Normal range between ( 27.0 and 35.0 ) Neutro Absolute: 6.0 x10 Hgb: 11.9 g/dL -- Normal range between ( 12.0 and 16.0 ) Mean Platelet Volume: 11.6 fL -- Normal range between ( 6.7 and 10.6 ) Platelet: 94 x10 Eos Absolute: 0.4 x10 RDW: 15.1 % -- Normal range between ( 11.6 and 14.8 ) Urinalysis 12/02/2019 10:35 AM UA Spec Grav: 1.004 -- Normal range between ( 1.003 and 1.035 ) UA pH: 6.0 Chemistry 12/03/2019 5:35 AM Creatinine Lvl: 0.75 mg/dL -- Normal range between ( 0.44 and 1.03 ) BUN: 15 mg/dL -- Normal range between ( 8 and 26 ) Chol: 151 mg/dL -- Normal range between ( 25 and 199 ) LDL: 97 mg/dL -- Normal range between ( 0 and 99 ) Glucose Lvl: 100 mg/dL -- Normal range between ( 70 and 99 ) Potassium Lvl: 3.7 mmol/L -- Normal range between ( 3.4 and 4.8 ) HDL: 24.0 mg/dL -- Normal range between ( 40.0 and 60.0 ) AST: 53 IU/L -- Normal range between ( 15 and 41 ) ALT: 76 IU/L -- Normal range between ( 14 and 54 ) Sodium Lvl: 139 mmol/L -- Normal range between ( 133 and 142 ) Triglyceride: 152 mg/dL Calcium Lvl: 8.7 mg/dL -- Normal range between ( 8.5 and 10.3 ) Albumin Lvl: 3.4 g/dL -- Normal range between ( 3.2 and 4.9 ) Total Protein: 6.5 g/dL -- Normal range between ( 6.5 and 8.1 ) Bili Total: 0.5 mg/dL -- Normal range between ( 0.3 and 1.2 ) Alk Phos: 120 IU/L -- Normal range between ( 32 and 91 ) Chloride: 104 mmol/L -- Normal range between ( 98 and 110 ) CO2: 26 mmol/L -- Normal range between ( 22 and 32 ) Anion Gap: 13 -- Normal range between ( 7 and 17 ) eGFR Non-AA: >60 mL/min/1.73m? eGFR AA: >60 mL/min/1.73m? BUN Crea Ratio: 20.0 -- Normal range between ( 10.0 and 20.0 ) Cardiac Risk: 6.3 VLDL: 30 mg/dL -- Normal range between ( 8 and 39 ) AG Ratio: 1.1 -- Normal range between ( 1.1 and 2.2 ) 12/02/2019 10:35 AM Ur Creatinine Tox Scrn: 45.1 mg/dL 12/02/2019 4:43 AM TSH: 3.77 mcIU/mL -- Normal range between ( 0.45 and 5.33 ) Urine Preg: Negative Toxicology 12/02/2019 10:35 AM Ur Methadone Scrn w/Conf: Negative ng/mL Ur Amph Scrn w/Conf: Negative ng/mL Ur Reyna Scrn w/Conf: Negative ng/mL Ur Benzodia Scrn w/Conf: Negative ng/mL Ur Cannab Scrn w/Conf: Negative ng/mL Ur Cocaine Scrn w/Conf: Negative ng/mL Ur Opiate Scrn w/Conf: Positive ng/mL Ur PCP Scrn w/Conf: Negative ng/mL Ur Oxy Screen w/Conf: Negative ng/mL Ur Fentanyl Scrn: Presumptive Pos ng/mL 12/02/2019 4:43 AM Ur PCP Scrn: Negative ng/mL Ur Opiate Scrn: Positive ng/mL Ur Methadone Scn: Negative ng/mL Ur Cannab Scrn: Negative ng/mL Ur Amph Scrn: Negative ng/mL Ur Benzodia Scrn: Negative ng/mL Ur Reyna Scrn: Negative ng/mL Ur Cocaine Scrn: Negative ng/mL Ur Oxy Screen: Negative ng/mL Ethanol, Plasma: <10 mg/dL Immunology/Serology 12/02/2019 8:40 AM RPR Ql: Non-Reactive Hep Bs Ab: <5.0 mIU/mL Hep B Surface Antibody Interp: Negative HCV Signal to Cutoff Ratio: 36.20 Hep Bs Ag Interp: Negative Hep C IgG Interp: Reactive Infectious Disease 12/02/2019 8:40 AM HIV-1/2 Ab,Ag Interp: Negative Measurements: Height: Weight: Blood Pressure: 116 mmHg / BMI: Respiratory: Respirations: Unlabored, Quiet Respiratory Symptoms: None Cardiovascular: Heart Sounds: Heart Rhythm: Regular Gastrointestinal: GI Symptoms: Bowel Sounds: Present Vital Signs: Temp Axillary: Temp Temporal Artery: Temp Oral: 36.5 degC Temp Rectal: Apical Heart Rate: Peripheral Pulse Rate: 62 bpm Heart Rate: Respiratory Rate: 16 br/min Diet Diet: Feeding Tolerance: Appetite: [place] Assessment: 21 Procedures x 3 Immunizations No Immunizations Documented This Visit HERE ARE THE MEDICATION CHANGES THAT OCCURRED DURING YOUR HOSPITAL STAY New Medications [facility], [address] [place], [place] [id number], [phone] baclofen (baclofen 10 mg oral tablet) 10 Milligram Oral (given by mouth) 3 times a day as needed muscle spasms for 3 Days. Refills: 0. Last Dose: cloNIDine (cloNIDine 0.1 mg oral tablet) 0.1 Milligram Oral (given by mouth) every 4 hours as needed other (see comment) for 3 Days. Refills: 0. Last Dose: dicyclomine (Bentyl 20 mg oral tablet) 20 Milligram Oral (given by mouth) 4 times a day as needed other (see comment) for 3 Days. Refills: 0. Last Dose: famotidine (Pepcid 20 mg oral tablet) 20 Milligram Oral (given by mouth) 2 times a day for 3 Days. Refills: 0. Last Dose: hydrOXYzine (hydrOXYzine hydrochloride 25 mg oral tablet) 1 Tabs Oral (given by mouth) 4 times a day as needed as needed for itching for 3 Days. Refills: 0. Last Dose: ondansetron (ondansetron 4 mg oral tablet) 1 Tabs Oral (given by mouth) every 8 hours as needed as needed for nausea/vomiting for 3 Days. Refills: 0. Last Dose: Medications That Have Not Changed Other Medications escitalopram (escitalopram 10 mg oral tablet) 1 Tabs Oral (given by mouth) every day. Last Dose: hydroCHLOROthiazide (hydroCHLOROthiazide 25 mg oral tablet) 1 Tabs Oral (given by mouth) every day. Last Dose: ibuprofen (ibuprofen 800 mg oral tablet) 1 Tabs Oral (given by mouth) 3 times a day as needed for pain. Last Dose: naproxen (naproxen 500 mg oral tablet) 1 Tabs Oral (given by mouth) 2 times a day as needed as needed for pain. Last Dose: SUMAtriptan (SUMAtriptan 25 mg oral tablet) 1 Tabs Oral (given by mouth) every day as needed as needed for migraine headache. may repeat dose after 2 hours up to a maximum of 200 mg in 24 hours. Last Dose: traZODone (traZODone 50 mg oral tablet) 1 Tabs Oral (given by mouth) once a day (at bedtime). 1-2 hours prior to bed. Last Dose: PROVIDED FOR YOU IS A LIST OF YOUR PATIENT?S CURRENT MEDICATIONS [facility], [address] [place], [place] [id number], [phone] baclofen (baclofen 10 mg oral tablet) 10 Milligram Oral (given by mouth) 3 times a day as needed muscle spasms for 3 Days. Refills: 0. cloNIDine (cloNIDine 0.1 mg oral tablet) 0.1 Milligram Oral (given by mouth) every 4 hours as needed other (see comment) for 3 Days. Refills: 0. dicyclomine (Bentyl 20 mg oral tablet) 20 Milligram Oral (given by mouth) 4 times a day as needed other (see comment) for 3 Days. Refills: 0. famotidine (Pepcid 20 mg oral tablet) 20 Milligram Oral (given by mouth) 2 times a day for 3 Days. Refills: 0. hydrOXYzine (hydrOXYzine hydrochloride 25 mg oral tablet) 1 Tabs Oral (given by mouth) 4 times a day as needed as needed for itching for 3 Days. Refills: 0. ondansetron (ondansetron 4 mg oral tablet) 1 Tabs Oral (given by mouth) every 8 hours as needed as needed for nausea/vomiting for 3 Days. Refills: 0. Other Medications escitalopram (escitalopram 10 mg oral tablet) 1 Tabs Oral (given by mouth) every day. hydroCHLOROthiazide (hydroCHLOROthiazide 25 mg oral tablet) 1 Tabs Oral (given by mouth) every day. ibuprofen (ibuprofen 800 mg oral tablet) 1 Tabs Oral (given by mouth) 3 times a day as needed for pain. naproxen (naproxen 500 mg oral tablet) 1 Tabs Oral (given by mouth) 2 times a day as needed as needed for pain. SUMAtriptan (SUMAtriptan 25 mg oral tablet) 1 Tabs Oral (given by mouth) every day as needed as needed for migraine headache. may repeat dose after 2 hours up to a maximum of 200 mg in 24 hours. traZODone (traZODone 50 mg oral tablet) 1 Tabs Oral (given by mouth) once a day (at bedtime). 1-2 hours prior to bed. Care Team Members: Attending Physician: Pema Mark DO Consulting Physician: Referring Physician: Follow up: With: Address: When: [facility] [address] [place] [address] 12/08/2019 12:30:00 Comments: Intake and diagnostic assessment With: Address: When: [facility] [address] [place] [place] [address] 12/04/2019 13:00:00 Comments: Case management appointment Normal [facility] Lipid Panelon 12-03-2019 Cholesterol in LDL [Mass/Vol] 97 mg/dL Normal 0-99 [facility] Comment on above: Result Comment: The equation being used in this calculation is LDL = (Chol - HDL) - (Trig / 5) The optimal value of LDL for individual patients may vary. The patient's history of Artherosclerosis and other cardiac risk factors should be considered. Performed By: #### . Automated Diff #### [address] [address] Cardiac Risk 6.3 Normal [facility] Comment on above: Result Comment: Men Women 1/2 Average 3.43 3.27 Average 4.97 4.44 2x Average 9.55 7.05 3x Average 23.99 11.04 Performed By: #### . Automated Diff #### [address] [address] Cholesterol [Mass/Vol] 151 mg/dL Normal 25-199 [facility] Comment on above: Result Comment: 0 - 17 years of age: Desirable 0-170 Borderline High 170-199 High >=200 18 years and older: Acceptable <200 Borderline High 200-239 High >=240 Performed By: #### . Automated Diff #### [address] [address] Cholesterol in HDL [Mass/Vol] 24.0 mg/dL Low 40.0-60.0 [facility] Comment on above: Performed By: #### . Automated Diff #### [address] [address] Cholesterol in VLDL [Mass/Vol] 30 mg/dL Normal 8-39 [facility] Comment on above: Performed By: #### . Automated Diff #### [address] [address] Triglyceride [Mass/Vol] 152 mg/dL Normal [facility] Comment on above: Result Comment: 0 - 17 years of age: Trig 90 - 129 Borderline High Trig => 130 High 18 years and older: Trig 150 - 199 Borderline High Trig 200 - 499 High Trig =>500 Very High Performed By: #### . Automated Diff #### [address] [address] .eGFRon 12-02-2019 eGFR AA >60 Normal >=60 [facility] Comment on above: Result Comment: Resu lt = 0-14.9 mL/min/1.73 m2 Kidney failure or Dialysis Result = 15-29 mL/min/1.73 m2 Severe decrease in GFR Result = 30-59 mL/min/1.73 m2 Moderate decrease in GFR Result >= 60 mL/min/1.73 m2 Normal or increased GFR Performed By: #### E GFR #### [address] [address] eGFR Non-AA >60 Normal >=60 [facility] Comment on above: Result Comment: Resu lt = 0-14.9 mL/min/1.73 m2 Kidney failure or Dialysis Result = 15-29 mL/min/1.73 m2 Severe decrease in GFR Result = 30-59 mL/min/1.73 m2 Moderate decrease in GFR Result >= 60 mL/min/1.73 m2 Normal or increased GFR Chronic kidney disease is defined as either kidney damage or GFR < 60 mL/min/1.73 m2 for >= 3 months. Kidney damage is defined as pathologic abnormalities or markers of damage including abnormalities in blood or urine tests or imaging studies. This GFR is NOT used for medication dosing. Performed By: #### E GFR #### [address] [address] CBC w/ Diffon 12-02-2019 Erythrocyte distribution width (RBC) [Ratio] 15.1 % High 11.6-14.8 [facility] Comment on above: Performed By: #### C BC #### [address] [address] Hematocrit (Bld) [Volume fraction] 35.2 % Low 36.0-46.0 [facility] Comment on above: Performed By: #### C BC #### [address] [address] Hemoglobin (Bld) [Mass/Vol] 11.9 g/dL Low 12.0-16.0 [facility] Comment on above: Performed By: #### C BC #### [address] [address] MCH (RBC) [Entitic mass] 28.6 pg Normal 27.0-35.0 [facility] Comment on above: Performed By: #### C BC #### [address] [address] MCHC (RBC) [Mass/Vol] 33.9 % Normal 31.0-37.0 [facility] Comment on above: Performed By: #### C BC #### [address] [address] MCV (RBC) [Entitic vol] 84.4 fL Normal 80.0-100.0 [facility] Comment on above: Performed By: #### C BC #### [address] [address] Platelet mean volume (Bld) [Entitic vol] 11.6 fL High 6.7-10.6 [facility] Comment on above: Performed By: #### C BC #### [address] [address] Platelets (Bld) [#/Vol] 94 x10*3/mcL Low 150-350 [facility] Comment on above: Performed By: #### C BC #### [address] [address] RBC (Bld) [#/Vol] 4.17 x10*6/mcL Normal 3.80-5.20 [facility] Comment on above: Performed By: #### C BC #### [address] [address] WBC (Bld) [#/Vol] 10.0 x10*3/mcL Normal 4.5-11.0 [facility] Comment on above: Performed By: #### C BC #### [address] [address] [facility] Albumin [Mass/Vol] 4.3 g/dL Normal 3.2-4.9 [facility] Comment on above: Result Comment: [facility] Laboratory updated the methodology used for albumin testing on 02/06/18. Albumin measurement was performed using a bromcresol purple dye-binding assay. Performed By: #### C OMP #### [address] [address] Albumin/Globulin [Mass ratio] 1.3 {ratio} Normal 1.1-2.2 [facility] Comment on above: Performed By: #### C OMP #### [address] [address] Alk Phos 143 IU/L High 32-91 [facility] Comment on above: Performed By: #### C OMP #### [address] [address] ALT [Catalytic activity/Vol] 74 U/L High 14-54 [facility] Comment on above: Performed By: #### C OMP #### [address] [address] Anion gap [Moles/Vol] 15 mmol/L Normal 7-17 [facility] Comment on above: Performed By: #### C OMP #### [address] [address] AST [Catalytic activity/Vol] 47 U/L High 15-41 [facility] Comment on above: Performed By: #### C OMP #### [address] [address] Bili Total 0.4 mg/dL Normal 0.3-1.2 [facility] Comment on above: Performed By: #### C OMP #### [address] [address] Calcium [Mass/Vol] 9.2 mg/dL Normal 8.5-10.3 [facility] Comment on above: Performed By: #### C OMP #### [address] [address] Chloride [Moles/Vol] 99 mmol/L Normal 98-110 [facility] Comment on above: Performed By: #### C OMP #### [address] [address] CO2 [Moles/Vol] 25 mmol/L Normal 22-32 [facility] Comment on above: Performed By: #### C OMP #### [address] [address] Creatinine [Mass/Vol] 0.83 mg/dL Normal 0.44-1.03 [facility] Comment on above: Performed By: #### C OMP #### [address] [address] Glucose [Mass/Vol] 90 mg/dL Normal 70-99 [facility] Comment on above: Performed By: #### C OMP #### [address] [address] Potassium [Moles/Vol] 3.4 mmol/L Normal 3.4-4.8 [facility] Comment on above: Performed By: #### C OMP #### [address] [address] Protein [Mass/Vol] 7.7 g/dL Normal 6.5-8.1 [facility] Comment on above: Performed By: #### C OMP #### [address] [address] Sodium [Moles/Vol] 136 mmol/L Normal 133-142 [facility] Comment on above: Performed By: #### C OMP #### [address] [address] Urea nitrogen [Mass/Vol] 15 mg/dL Normal 8-26 [facility] Comment on above: Performed By: #### C OMP #### [address] [address] Urea nitrogen/Creatinine [Mass ratio] 18.1 mg/mg Normal 10.0-20.0 [facility] Comment on above: Performed By: #### C OMP #### [address] [address] Diff Autoon 12-02-2019 Baso Absolute 0.0 x10*3/mcL Normal 0.0-0.2 [facility] Comment on above: Performed By: #### . Automated Diff #### [address] [address] Basophils/100 WBC (Bld) 0.4 % Normal 0.0-1.5 [facility] Comment on above: Performed By: #### . Automated Diff #### [address] [address] Eos Absolute 0.4 x10*3/mcL Normal 0.0-0.4 [facility] Comment on above: Performed By: #### . Automated Diff #### [address] [address] Eosinophils/100 WBC (Bld) 3.7 % Normal 0.0-5.4 [facility] Comment on above: Performed By: #### . Automated Diff #### [address] [address] Lymphocytes (Bld) [#/Vol] 3.2 x10*3/mcL Normal 1.0-4.8 [facility] Comment on above: Performed By: #### . Automated Diff #### [address] [address] Lymphocytes/100 WBC (Bld) 31.5 % Normal 27.2-40.8 [facility] Comment on above: Performed By: #### . Automated Diff #### [place] [id number] [place] Absolute 0.4 x10*3/mcL Normal 0.1-1.1 [facility] Comment on above: Performed By: #### . Automated Diff #### [place] [id number] Monocytes/100 WBC (Bld) 4.2 % Normal 3.7-11.9 [facility] Comment on above: Performed By: #### . Automated Diff #### [place] [id number] Neutro Absolute 6.0 x10*3/mcL Normal 1.8-7.7 [facility] Comment on above: Performed By: #### . Automated Diff #### [place] [address] Neutro Auto 60.2 % Normal 47.2-70.8 [facility] Comment on above: Performed By: #### . Automated Diff #### [place] [id number] ED Clinical Summaryon 2019 ED Clinical Summary [place] [id number] ED Clinical Summary Person Information Name: Tory Peoples [place] Age: 34 Years : 1985 Sex: Female PCP: Marital Status: Single Phone: Race: White Ethnicity: Not or Language: Thai Visit Reason: Drug withdrawal; Drug withdrawal Acuity: 3 Enc Type: Observation Med Service: X Medication Withdrawal Management Arrival: 12/02/2019 03:53:05 Discharge: LOS: 000 04:16 Checkin: 12/02/2019 03:53:05 Checkout: 12/02/2019 08:09:13 Dispo Type: Place in Observation Address: [address] [place] [id number] Provider Notes: Diagnosis: 1:Heroin addiction Problems No Problems Documented Smoking Status: Smoking Status 10 or more cigarettes (1/2 pack or more)/day in last 30 days Functional Status: Sensory Deficits: History of Falls: Mobility Assistance Prior to Admission: ADLs: Current Level of Assistance for Self-Care/Mobility: Cognitive Status: Allergies No Known Allergies Laboratory or Other Results This Visit (last charted value for your 12/02/2019 visit) Hematology 12/02/2019 4:43 AM WBC: 10.0 x10 RBC: 4.17 x10 Neutro Auto: 60.2 % -- Normal range between ( 47.2 and 70.8 ) Lymph Auto: 31.5 % -- Normal range between ( 27.2 and 40.8 ) [place] Auto: 4.2 % -- Normal range between ( 3.7 and 11.9 ) Eos Auto: 3.7 % -- Normal range between ( 0.0 and 5.4 ) Basophil Auto: 0.4 % -- Normal range between ( 0.0 and 1.5 ) Baso Absolute: 0.0 x10 MCV: 84.4 fL -- Normal range between ( 80.0 and 100.0 ) MCHC: 33.9 % -- Normal range between ( 31.0 and 37.0 ) Lymph Absolute: 3.2 x10 Hct: 35.2 % -- Normal range between ( 36.0 and 46.0 ) [place] Absolute: 0.4 x10 MCH: 28.6 pg -- Normal range between ( 27.0 and 35.0 ) Neutro Absolute: 6.0 x10 Hgb: 11.9 g/dL -- Normal range between ( 12.0 and 16.0 ) Mean Platelet Volume: 11.6 fL -- Normal range between ( 6.7 and 10.6 ) Platelet: 94 x10 Eos Absolute: 0.4 x10 RDW: 15.1 % -- Normal range between ( 11.6 and 14.8 ) Urinalysis 12/02/2019 4:43 AM UA Spec Grav: 1.029 -- Normal range between ( 1.003 and 1.035 ) UA pH: 5.0 Chemistry 12/02/2019 4:43 AM Creatinine Lvl: 0.83 mg/dL -- Normal range between ( 0.44 and 1.03 ) BUN: 15 mg/dL -- Normal range between ( 8 and 26 ) Glucose Lvl: 90 mg/dL -- Normal range between ( 70 and 99 ) Potassium Lvl: 3.4 mmol/L -- Normal range between ( 3.4 and 4.8 ) AST: 47 IU/L -- Normal range between ( 15 and 41 ) ALT: 74 IU/L -- Normal range between ( 14 and 54 ) Sodium Lvl: 136 mmol/L -- Normal range between ( 133 and 142 ) Calcium Lvl: 9.2 mg/dL -- Normal range between ( 8.5 and 10.3 ) Albumin Lvl: 4.3 g/dL -- Normal range between ( 3.2 and 4.9 ) Total Protein: 7.7 g/dL -- Normal range between ( 6.5 and 8.1 ) Bili Total: 0.4 mg/dL -- Normal range between ( 0.3 and 1.2 ) Alk Phos: 143 IU/L -- Normal range between ( 32 and 91 ) Chloride: 99 mmol/L -- Normal range between ( 98 and 110 ) CO2: 25 mmol/L -- Normal range between ( 22 and 32 ) Anion Gap: 15 -- Normal range between ( 7 and 17 ) TSH: 3.77 mcIU/mL -- Normal range between ( 0.45 and 5.33 ) eGFR Non-AA: >60 mL/min/1.73m? eGFR AA: >60 mL/min/1.73m? BUN Crea Ratio: 18.1 -- Normal range between ( 10.0 and 20.0 ) Urine Preg: Negative AG Ratio: 1.3 -- Normal range between ( 1.1 and 2.2 ) Ur Creatinine Tox Scrn: 351.3 mg/dL Toxicology 12/02/2019 4:43 AM Ur PCP Scrn: Negative ng/mL Ur Opiate Scrn: Positive ng/mL Ur Methadone Scn: Negative ng/mL Ur Cannab Scrn: Negative ng/mL Ur Amph Scrn: Negative ng/mL Ur Benzodia Scrn: Negative ng/mL Ur Reyna Scrn: Negative ng/mL Ur Cocaine Scrn: Negative ng/mL Ur Oxy Screen: Negative ng/mL Ethanol, Plasma: <10 mg/dL Measurements: Height: Weight: 70.1 kg Blood Pressure: /64 mmHg BMI: Procedures No Procedures Documented Immunizations No Immunizations Documented This Visit Final Med List: No Medications Documented Care Team Members: Attending Physician: Pema Mark DO Consulting Physician: Referring Physician: Provider Role Assigned Unassigned Mike YEAGER, Nestor Amaya ED Provider 12/02/2019 04:04:52 Yessica Schafer ED Nurse 12/02/2019 04:11:45 Jennifer Dominguez ED Nurse 12/02/2019 04:53:37 12/02/2019 07:14:25 Alton Campos ED Nurse 12/02/2019 07:14:26 Follow up: Discharge Orders: Place in Observation 12/02/19 7:44:00 EDT, Medical/Surgical 5th floor, 12/02/19 7:44:00 EDT, Pema Mark DO, Pema Mark DO Request for Admit 12/02/19 7:58:00 EDT, 12/02/19 7:58:00 EDT, Medical/Surgical 5th floor Patient Education Information: [facility] Poison Help line: . [facility] Hotline: [place] Tobacco Quit Line: [place], [place]) [address]: [phone] [place], [place]) [address]: [phone] [facility] [address] [place], [place]: [phone] Normal [facility] ED Note-Physicianon 12-02-19 ED Note-Physician seen by social sciences department chair, admitted to [facility] program Electronically signed by Benita Mace MD 12/02/19 08:16 EDT Normal [facility] ED Note-Physician Chief Complaint Patient reports she would like help with Heroine withdrawal History of Present Illness Patient presented to the emergency department requesting detox from heroin and other drugs. Patient said that she has had substance use disorder for a long time but it got bad since age 23. She has been sober on and off during this. But she has never done any rehab but She has usually been able to sober on her own. The last time she used heroin was yesterday. Patient states that she used to do Percocets and Xanax and others but since she was about age 25 she was sober for several years and then she relapsed again. 2 years ago she was also able to sober up but she relapsed again. Currently she is only doing heroin and she smokes marijuana and cigarettes but denies alcohol use . She does not remember the last menstrual period it could be 3 or 4 months ago but she says she is not . Today she denies any physical symptoms and any withdrawal symptoms. She denies headache neck pain or back pain she has no cough congestion chest pain shortness of breath she has no nausea vomiting or diarrhea she now shakes she has no hallucinations or delusions. She is not suicidal homicidal. Her cognition and her memory is good. Her neurological status is normal. Clinically she looks well in no distress with an otherwise normal exam. Review of Systems As reviewed in the HPI. All other systems reviewed are negative or normal. Physical Exam CONSTITUTIONAL: [no apparent distress, well appearing] SKIN: [warm, dry, no jaundice, hives or petechiae] EYES: [pupils are equally round, extraocular movements intact without nystagmus, clear conjunctiva, non-icteric sclera] HENT: [normocephalic, atraumatic, moist mucus membranes, oropharynx clear without exudates] NECK: [Nontender and supple with no nuchal rigidity, no lymphadenopathy, full range of motion] PULMONARY: [clear to auscultation without wheezes, rhonchi, or rales, normal excursion, no accessory muscle use and no stridor] CARDIOVASCULAR: [regular rate, rhythm, normal S1 and S2. No appreciated murmurs. Strong radial pulses with intact distal perfusion] GASTROINTESTINAL: [soft, non-tender, non-distended, no palpable masses, no rebound or guarding] GENITOURINARY: [No costovertebral angle tenderness to palpation] LYMPHATICS: [no edema in lower extremities, no lymphadenopathy] MUSCULOSKELETAL: [Extremities are nontender to palpation and have no gross deformity, no edema, redness, or swelling] NEUROLOGIC: [alert and oriented x 3, GCS 15, normal mentation and speech. Moves all extremities x 4 without motor or sensory deficit . PSYCHIATRIC: [normal mood and affect, thought process is clear and linear] Vitals & Measurements T: 36.5 ?C (Oral) RR: 16 BP: 101/64 SpO2: 95% HT: 154.9 cm WT: 70.1 kg DOSE WT: 70.1 kg Additional Vitals Peripheral Pulse Rate: 62 bpm Procedure No qualifying data available. ASA Documentation Medical Decision Making Patient presented to the ED requesting detox from heroin. CBC is normal with a WBC count of 10.0 hemoglobin 11.9 chemistries are normal. Weakness test is negative alcohol is negative she is positive for opiates. She will benefit from admission and further evaluation and treatment and detox. She is currently awaiting prescreening. She is medically cleared for further evaluation and treatment Because of shift change patient is handed over to my colleague for final disposition. Assessment/Plan 1. Heroin addiction 2. Tobacco user 3. Transaminitis Problem List/Past Medical History Ongoing No qualifying data Historical No qualifying data Medications Home No active home medications Inpatient No active inpatient medications Prescriptions No active Prescriptions Allergies No Known Allergies Lab Results Automated Hematology LATEST RESULTS WBC 12/02/19 04:43 10.0 RBC 12/02/19 04:43 4.17 Hgb 12/02/19 04:43 11.9 Low Hct 12/02/19 04:43 35.2 Low MCV 12/02/19 04:43 84.4 MCH 12/02/19 04:43 28.6 MCHC 12/02/19 04:43 33.9 RDW 12/02/19 04:43 15.1 High Platelet 12/02/19 04:43 94 Low Mean Platelet Volume 12/02/19 04:43 11.6 High Neutro Auto 12/02/19 04:43 60.2 Lymph Auto 12/02/19 04:43 31.5 [place] Auto 12/02/19 04:43 4.2 Eos Auto 12/02/19 04:43 3.7 Basophil Auto 12/02/19 04:43 0.4 Neutro Absolute 12/02/19 04:43 6.0 Lymph Absolute 12/02/19 04:43 3.2 [place] Absolute 12/02/19 04:43 0.4 Eos Absolute 12/02/19 04:43 0.4 Baso Absolute 12/02/19 04:43 0.0 Routine Chemistry LATEST RESULTS Sodium Lvl 12/02/19 04:43 136 Potassium Lvl 12/02/19 04:43 3.4 Chloride 12/02/19 04:43 99 CO2 12/02/19 04:43 25 Anion Gap 12/02/19 04:43 15 Glucose Lvl 12/02/19 04:43 90 BUN 12/02/19 04:43 15 Creatinine Lvl 12/02/19 04:43 0.83 eGFR AA 12/02/19 04:43 >60 eGFR Non-AA 12/02/19 04:43 >60 BUN Crea Ratio 12/02/19 04:43 18.1 Bili Total 12/02/19 04:43 0.4 Alk Phos 12/02/19 04:43 143 High AST 12/02/19 04:43 47 High ALT 12/02/19 04:43 74 High Total Protein 12/02/19 04:43 7.7 Albumin Lvl 12/02/19 04:43 4.3 AG Ratio 12/02/19 04:43 1.3 Calcium Lvl 12/02/19 04:43 9.2 Testing LATEST RESULTS Urine Preg 12/02/19 04:43 Negative Thyroid Studies LATEST RESULTS TSH 12/02/19 04:43 3.77 Random Urine Chemistry LATEST RESULTS Ur Creatinine Tox Scrn 12/02/19 04:43 351.3 Serum Toxicology LATEST RESULTS Ethanol, Plasma 12/02/19 04:43 <10 Urine Toxicology LATEST RESULTS Ur Amph Scrn 12/02/19 04:43 Negative Ur Reyna Scrn 12/02/19 04:43 Negative Ur Benzodia Scrn 12/02/19 04:43 Negative Ur Cannab Scrn 12/02/19 04:43 Negative Ur Cocaine Scrn 12/02/19 04:43 Negative Ur Methadone Scn 12/02/19 04:43 Negative Ur Oxy Screen 12/02/19 04:43 Negative Ur Opiate Scrn 12/02/19 04:43 Positive Abnormal Ur PCP Scrn 12/02/19 04:43 Negative UA Macroscopic LATEST RESULTS UA Spec Grav 12/02/19 04:43 1.029 UA pH 12/02/19 04:43 5.0 Diagnostic Results XRay No qualifying data available (XRay) Computerized Tomagraphy No qualifying data available (CT) Ultrasound No qualifying data available (Ultrasound) Magnetic Resonance Imaging No qualifying data available (MRI) Electronically signed by Mike YEAGER, Nestor Amaya 12/02/19 19:07 EDT Normal [facility] Ethanolon 12-02-2019 Ethanol [Mass/Vol] mg/dL Normal <=9 [facility] Comment on above: Result Comment: To c onvert mg/dL to g/dL, divide result by 1,000. Legal limit of intoxication is 80 mg/dL (0.08 g/dL). Performed By: #### A LC #### [address] [address] Fentanyl Scn without Confirm , Uron 12-02-2019 Ur Fentanyl Scrn Presumptive Pos Abnormal NEG <1.0 [facility] Comment on above: Result Comment: Urin e sample is presumptive positive for fentanyl. The Anevia[employer] SEFRIA Fentanyl Urine Enzyme Immunoassay provides only a preliminary screening result. More specific testing via GC-MS or LC-MS is required in order to obtain a confirmed analytical result. Contact the laboratory to request confirmation testing if needed. This test is intended for medical purposes only and is not intended for any other purpose (i.e. legal, employment, pain management). Disclaimers: Trazadone and m-CPP: Patients prescribed trazadone on a routine basis produce metabolites that can cause false positive fentanyl results. Methamphetamine: Elevated levels of methamphetamine in urine may cause a false positive fentanyl result. A positive Amphetamine Screen result will indicate the presence of methamphetamine Performed By: #### . Automated Diff #### [address] [address] Ur Fentanyl Scrn Qnt 3.03 ng/mL High <=0.99 [facility] Comment on above: Performed By: #### . Automated Diff #### [address] [address] HIV1/2 Ab,Ag Scnon 0 HIV-1/2 Ab,Ag 0.21 Normal [facility] Comment on above: Performed By: #### . Automated Diff #### [place] [id number] HIV-1/2 Ab,Ag Interp Normal Negative [facility] Comment on above: Result Comment: N egative Negative Performed By: #### . Automated Diff #### [place] [id number] Hep Scrn Chron 12-02-2019 HCV Signal to Cutoff Ratio 36.20 Normal [facility] Comment on above: Performed By: #### . Automated Diff #### [place] [id number] Hep B Surface Antibody Interp Negative Normal [facility] Comment on above: Result Comment: Helga ent is considered to be not immune to infection. Performed By: #### . Automated Diff #### [place] [address] Hep Bs Ab <5.0 [facility] Comment on above: Performed By: #### . Automated Diff #### [place] [id number] Hep Bs Ag Interp Normal Negative [facility] Comment on above: Result Comment: Ne gative Negative Performed By: #### . Automated Diff #### [place] [id number] Hep C IgG Interp Abnormal Negative [facility] Comment on above: Result Comment: Re active This specimen is reactive by the Ortho ECiQ Hepatitis C Antibody Screen. Anti-HCV IgG detected. Patient is presumed to be infected with HCV, state or associated disease not determined. Confirmation of this screening result is required. Per CBC guidelines, reactive antibody screens reflex to Hepatitis C Virus (HCV) RNA Detection and Quantification by RT-PCR. Reactive Performed By: #### . Automated Diff #### [facility] [address] [place] [address] History and Physicalon 12-01 History and Physical Chief Complaint Patient reports she would like help with Heroine withdrawal History of Present Illness This is a pleasant 34-year-old female patient who was admitted through the emergency department with complaint of wanting help with heroin withdrawal. Patient states that she uses up to 2 g daily denies any other drug use. Drug screen in the ER positive for opiates with presumptive positive fentanyl. Patient does report that she is a 2 pack-a-day smoker. Patient is requesting Nicotrol Inhaler for nicotine withdrawal. Other past medical history includes migraine headaches and elevated blood pressure. Did show a mild transaminitis patient does states she has been screened before for HIV and hepatitis but does not recall the results. The last time she used heroin was sometime yesterday. Patient has been sober in the past but has relapsed recently. At this time the patient is interested in following up outpatient for Vivitrol and is requesting comfort meds only. Patient does not feel she is able to do this at home and is high risk for relapse. Review of Systems Constitutional: No fevers, chills, sweats Respiratory: No shortness of breath, cough Cardiovascular: no Chest pain, no palpitations, syncope,no calf tenderness numbness or tingling Gastrointestinal: No nausea, vomiting, diarrhea Genitourinary: No hematuria skin: denies chronic bruising, rash psychiatry: denies any depression or mood instability or suicidal ideation neuro: denies any focal deficits no paraesthesias HENT: denies URI symptoms EYES: No visual disturbances Allergies: no seasonal allergy complaints Physical Exam Vitals & Measurements T: 36.8 ?C (Oral) RR: 16 BP: 92/57 SpO2: 91% WT: 70.4 kg WT: 70.3 kg DOSE WT: 70.1 kg Lungs: Clear to auscultation, non-labored respiration Heart: Normal rate, regular rhythm, no murmur, gallop or edema. Abdomen: Soft, non-tender, non-distended, normal bowel sounds, no masses. Mental Status: drowsy and oriented x3. no focal deficits Skin: pink warm dry and intact Peripheral: 2+ dorsalis pedal pulses and 2+ radial pulses Musculoskeletal: 5/5 strength carlos ue and 5/5 dorsi/plantar flexion FROMx4 Constitutional: well appearing, nontoxic HENT: moist mucous membranes psychiatry: cooperative calm and appropriate Additional Vitals Body Mass Index Measured: 29.34 kg/m2 Peripheral Pulse Rate: 62 bpm Assessment/Plan Brief Hospital Course Summary Patient admitted for medical withdrawal management of heroin. She is interested in vivitrol injection outpatient. Comfort medications administered Assessment 1. Heroin addiction -comfort medications initiated 2. Tobacco user -nicotrol inhaler ordered 3. Transaminitis -hepatitis panel pending -monitor labs -caution with high dose Tylenol Medical Necessity for the hospitilization: medical withdrawal management of Heroin Complication Risk: overdose, relapse, delirium Code Status: Full Resuscitation Advance Care Directive: unknown Health Care Power of Demand Equipment Repairer or next of kin: unknown Family Updated: patient can update Activity at baseline: independent Anticipated Discharge Location: home Anticipated Discharge Date: unknown Problem List/Past Medical History Ongoing Depression Hypertension Migraine headache Historical No qualifying data Procedure/Surgical History x 3 Medications Home escitalopram 10 mg oral tablet, 10 mg, 1 tabs, Oral, Daily hydroCHLOROthiazide 25 mg oral tablet, 25 mg, 1 tabs, Oral, Daily ibuprofen 800 mg oral tablet, 800 mg, 1 tabs, Oral, TID, PRN naproxen 500 mg oral tablet, 500 mg, 1 tabs, Oral, BID, PRN SUMAtriptan 25 mg oral tablet, 25 mg, 1 tabs, Oral, Daily, PRN traZODone 50 mg oral tablet, 50 mg, 1 tabs, Oral, HS (at bedtime) Inpatient acetaminophen, 650 mg, Oral, q6hr, PRN baclofen, 10 mg, Oral, TID, PRN Bentyl, 20 mg, Oral, QID, PRN cloNIDine, 0.1 mg, Oral, t7os-Afucqaia Times cloNIDine, 0.2 mg, Oral, l2up-Fahimsxf Times cloNIDine, 0.1 mg, Oral, q4hr, PRN hydrOXYzine, 25 mg, Oral, QID, PRN ibuprofen, 400 mg, Oral, q4hr, PRN Imodium A-D, 4 mg, Oral, Once, PRN Imodium A-D, 2 mg, Oral, As Indicated, PRN Pepcid, 20 mg, Oral, BID Zofran, 4 mg, Oral, q8hr, PRN Prescriptions No active Prescriptions Allergies No Known Allergies Social History Alcohol Current, Wine, Liquor, 1-2 times per year Substance Abuse Current, Heroin Tobacco 10 or more cigarettes (1/2 pack or more)/day in last 30 days Use:. Family History Renal failure syndrome: Father. Lab Results Labs (Last four charted values) WBC 10.0 (DEC 01) Hgb L 11.9 (DEC 01) Hct L 35.2 (DEC 01) Plt L 94 (DEC 01) Na 136 (DEC 01) K 3.4 (DEC 01) CO2 25 (DEC 01) Cl 99 (DEC 01) Cr 0.83 (DEC 01) BUN 15 (DEC 01) Microbiology - Current Encounter No qualifying data available. Diagnostic Results Diagnostic Radiology No qualifying data available. Computed Tomography No qualifying data available. Ultrasound No qualifying data available. Magnetic Resonance Imaging No qualifying data available. Nuclear Medicine No qualifying data available. Electronically signed by Nhi Posada 12/02/19 11:58 EDT Normal [facility] RPR Screenon 12-02-2019 RPR Ql Non-Reactive Normal Non-Reactive [facility] Comment on above: Performed By: #### . Automated Diff #### [address] [address] TSHon 12-02-2019 TSH Qn 3.77 mcIU/mL Normal 0.45-5.33 [facility] Comment on above: Result Comment: Refe rence Ranges for individuals from to 18 years of age were obtained from The Kathryn Cortes Handbook (20 ed) published by [facility]. Reference Ranges for Females: Females, 1st Trimester 0.05 ? 3.7 uIU/mL Females, 2nd Trimester 0.31 ? 4.35 uIU/mL Females, 3rd Trimester 0.41 ? 5.18 uIU/mL Performed By: #### T SH #### [address] [address] UDS Compon 12-02-2019 UA pH 5.0 Normal 4.5 - 7.8 [facility] Comment on above: Performed By: #### C [id number] #### [address] [address] UA Spec Grav 1.029 Normal 1.003-1.035 [facility] Comment on above: Performed By: #### C [id number] #### [address] [address] Creatinine [Mass/Vol] 351.3 mg/dL Normal [facility] Comment on above: Performed By: #### C [id number] #### [address] [address] Ur Amph Scrn Negative Normal NEG = <1000 [facility] Comment on above: Performed By: #### C [id number] #### [address] [address] Ur Reyna Scrn Negative Normal NEG = <200 [facility] Comment on above: Performed By: #### C [id number] #### [address] [address] Ur Benzodia Scrn Negative Normal NEG = <200 [facility] Comment on above: Performed By: #### C [id number] #### [address] [address] Ur Cannab Scrn Negative Normal NEG = <50 [facility] Comment on above: Performed By: #### C [id number] #### [address] [address] Ur Cocaine Scrn Negative Normal NEG = <300 [facility] Comment on above: Performed By: #### C [id number] #### [address] [address] Ur Methadone Scn Negative Normal NEG = <300 [facility] Comment on above: Performed By: #### C [id number] #### [address] [address] Ur Opiate Scrn Positive Abnormal NEG = <300 [facility] Comment on above: Result Comment: This unconfirmed positive screening result is to be used for medical treatment purposes only. Unconfirmed screening results must not be used for non-medical purposes. (e.g. employment testing, legal testing). Performed By: #### C [id number] #### [address] [address] Ur Oxy Screen Negative Normal NEG = <100 [facility] Comment on above: Performed By: #### C [id number] #### [address] [address] Ur Oxy Scrn Qnt 24 ng/mL Normal <=99 [facility] Comment on above: Performed By: #### C [id number] #### [address] [address] Ur PCP Scrn Negative Normal NEG = <25 [facility] Comment on above: Performed By: #### C [id number] #### [place] [id number] UDS Comp/Con 12-02-2019 Creatinine [Mass/Vol] 45.1 mg/dL Normal [facility] Comment on above: Performed By: #### . Automated Diff #### [address] [address] Ur Amph Scrn w/Conf Negative Normal NEG = <1000 [facility] Comment on above: Performed By: #### . Automated Diff #### [address] [address] Ur Reyna Scrn w/Conf Negative Normal NEG = <200 [facility] Comment on above: Performed By: #### . Automated Diff #### [address] [address] Ur Benzodia Scrn w/Conf Negative Normal NEG = <200 [facility] Comment on above: Performed By: #### . Automated Diff #### [address] [address] Ur Cannab Scrn w/Conf Negative Normal NEG = <50 [facility] Comment on above: Performed By: #### . Automated Diff #### [address] [address] Ur Cocaine Scrn w/Conf Negative Normal NEG = <300 [facility] Comment on above: Performed By: #### . Automated Diff #### [address] [address] Ur Methadone Scrn w/Conf Negative Normal NEG = <300 [facility] Comment on above: Performed By: #### . Automated Diff #### [place] [id number] Ur Opiate Scrn w/Conf Positive Abnormal NEG = <300 [facility] Comment on above: Result Comment: This unconfirmed positive screening result is to be used for medical treatment purposes only. Confirmation testing will be performed using an alternate method. Performed By: #### . Automated Diff #### [address] [address] Ur Oxy Screen w/Conf Negative Normal NEG = <100 [facility] Comment on above: Performed By: #### . Automated Diff #### [address] [address] Ur Oxy Scrn Qnt w/Confirm 2 ng/mL Normal <=99 [facility] Comment on above: Performed By: #### . Automated Diff #### [address] [address] Ur PCP Scrn w/Conf Negative Normal NEG = <25 [facility] Comment on above: Performed By: #### . Automated Diff #### [place] [id number] UA pH 6.0 Normal 4.5 - 7.8 [facility] Comment on above: Performed By: #### . Automated Diff #### [place] [address] UA Spec Grav 1.004 Normal 1.003-1.035 [facility] Comment on above: Performed By: #### . 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 Work Phone: [facility] Comment on above: Lumbar back pain wit h radiculopathy affecting left lower extremity; Vitamin D deficiency Start: 08-14-2023 Refill Rony J Cast illo SHIPWRIGHT HELPER-SLASHER TENDER HELPER Work Phone: [facility] Comment on above: Lumbar back pain wit h radiculopathy affecting left lower extremity Start: 08-06-2023 Refill Rony J Cast illo SHIPWRIGHT HELPER-SLASHER TENDER HELPER Work Phone: [facility] Start: 02-21-2023 End: 02-22-2023 ambulatory RONY COX Facility:[facility] Start: 02-21-2023 End: 02-21-2023 Patient encounter procedure Li Deutsch [facility] Start: 01-24-2023 ambulatory RONY COX Facili ty:[facility] Start: 09-19-2022 End: 09-19-[address] JOSE AGUILAR . Facility:[facility] Start: 07-12-2022 End: 07-12-[address] NONE LISTED REQUEST Facility:[facility] Start: 07-10-2022 End: 07-10-[address] NONE LISTED REQUEST Facility:[facility] Start: 06-08-2022 End: 06-08-[address] NONE LISTED REQUEST Facility:[facility] Start: 11-23-2021 End: 11-23-[address] NONE LISTED REQUEST Facility:[facility] Start: 10-27-2020 End: 10-28-[address] [facility] Start: 10-27-2020 End: 10-27-2020 [facility] Start: 10-27-2020 End: 10-28-2020 ambulatory [facility] Start: 10-27-2020 End: 10-27-2020 Subsequent [facility] Start: 06-03-2020 End: 2020 ambulatory [facility] Start: 06-03-2020 End: 06-03-2020 Subsequent hospital visit by physician [facility] Start: 05-12-2020 End: 05-13-2020 ambulatory ARIE Kim [facility] Start: 05-12-2020 End: 05-12-2020 Subsequent hospital visit by physician [facility] Start: 05-11-2020 End: 05-12-2020 ambulatory [facility] Start: 05-11-2020 End: 05-11-2020 Subsequent hospital visit by physician [facility] Start: 12-02-2019 End: 12-03-2019 Patient encounter procedure Gerson Sheppard Facility:[facility] Procedures Date Procedure Procedure Detail Performing Clinician Start: 06-14-2023 Adult depression scr eening assessment Rony Cox SHIPWRIGHT HELPER-SLASHER TENDER HELPER Work Phone: Start: 10-27-2020 Antibody hiv-1&hiv-2 single result Arie Hernandez SHIPWRIGHT HELPER - SLASHER TENDER HELPER Work Phone: Start: 10-27-2020 Comprehensive metabo lic panel Arie Hernandez SHIPWRIGHT HELPER - SLASHER TENDER HELPER Work Phone: Start: 10-27-2020 IMMATURE PLATELET FRACTION Arie Hernandez SHIPWRIGHT HELPER - SLASHER TENDER HELPER Work Phone: Start: 05-12-2020 Antibody hiv-1&hiv-2 single result ARIE HERNANDEZ Start: 05-12-2020 Blood count complete automated ARIE HERNANDEZ Start: 05-12-2020 Iadna hepatitis c qu ant & reverse county surveyor ARIE HERNANDEZ Start: 05-12-2020 Acute hepatitis panel E chucky Hernandez Work Phone: Start: 05-12-2020 Antibody hiv-1&hiv-2 single result Arie Hernandez Work Phone: Start: 05-12-2020 Blood count complete automated Arie Hernandez Work Phone: Start: 05-12-2020 Comprehensive metabo lic panel Arie Hernandez Work Phone: Start: 05-12-2020 Gonadotropin chorion ic qualitative Arie Hernandez Work Phone: Start: 05-12-2020 IMMATURE PLATELET FRACTION Arie Hernandez Work Phone: Plan of Treatment Date Care Activity Detail Author Start: 07-11-2024 Tobacco Counseling Tobacco Counselin g [facility] Start: 06-14-2024 Adult BMI Follow Up Plan Adult BMI Follow Up Plan [facility] Start: 06-14-2024 Adult BMI Screening Adult BMI Screen ing [facility] Start: 06-14-2024 Depression Screening Depression Scre ening [facility] Start: 06-14-2024 Tobacco Screening Tobacco Screening [facility] Start: 03-02-2023 Influenza vaccination Influenza Vacc ine [facility] Start: 03-02-2021 Influenza vaccination Flu vacc ine (Season Ended) [employer] Phone: Start: 03-02-2020 Influenza vaccination Flu vaccine (# 1) [place], [place] Start: 12-21-2019 DTaP,Tdap and Td Vaccines (2 - Td or Tdap) DTaP,Tdap and Td Vaccines (2 - Td or Tdap) [facility] Start: 2008 Screening for malign ant neoplasm of cervix Pap Smear [facility] Start: 2003 COVID-19 Vaccine (1) COVID-19 Vaccin e (1) [facility] Work Phone: End: 05-12-2020 Hepatitis C RNA, quantitative, PCR Hepatitis C RNA, quantitative, PCR Lab Routine Once for 1 Occurrences starting 05/12/2020 until 05/12/2020 [place], [place] Comment on above: Once for 1 Occurrenc es starting 05/12/2020 until 05/12/2020 Hepatitis C RNA, quantitative, PCR [place], [place] End: 10-27-2020 Hepatitis C RNA, quantitative, PCR Hepatitis C RNA, quantitative, PCR Lab Routine Once for 1 Occurrences starting 10/27/2020 until 10/27/2020 [employer] Work Phone: Comment on above: Once for 1 Occurrenc es starting 10/27/2020 until 10/27/2020 Immunizations Immunization Date Immunization Notes Care Provider Jordan walter 12-20-2009 tetanus toxoid, redu jarrett diphtheria toxoid, and acellular pertussis vaccine, adsorbed Li Get [facility] Payers Date Payer Category Payer Medicaid [employer] [facility] [id number] 2022-Present [address] [place] [address] [id number] 2019 Unknown 2018 Unknown [id number] 1987 Unknown [id number] 1987 Unknown [id number] 1987 Unknown [id number] 1987 Unknown [id number] 1987 Unknown [id number] 1987 Unknown [id number] 1987 Unknown [id number] 1987 Unknown [id number] 1987 Unknown [id number] 1987 Unknown [id number] 1987 Unknown [id number] 1957 Medicaid [id number] 1957 Unknown [id number] 1959 Unknown [id number] Social History Date Type Detail Facility Tobacco smoking stat [facility] if ever smoked [facility] Start: 1985 Sex Assigned At Not on file [place] Tobacco smoking status No Smokin g Status Entered [facility] Start: 08-12-2020 End: 06-14-2023 Sex Assigned At Female [facility] Start: 11-06-2022 Tobacco smoking stat [facility] Smokes tobacco daily [facility] History of tobacco use Cigarette Smoker P [facility] Start: 08-12-2020 End: 11-06-2022 Cigarettes smoked current (pack per day) - [facility].5 [facility] Start: 11-06-2022 Tobacco use and exposure Smokeless tobacco non-user [facility] Start: 06-14-2023 Alcohol intake Ex-drinker (finding) [facility] How hard is it for y ou to pay for the very basics like food, housing, medical care, and heating Hard [facility] Adolescent depressio n screening assessment 0 [facility] Clinical Note 06-08-2022 Note Date & Type Note Facility 06-08-2022 Note Indication: Right fl ank pain. Comparison: 03/16/2013 exam. Procedure: Axial images were made from the diaphragms through the symphysis pubis. No oral contrast or Intravenous contrast was given. Dose reduction techniques were achieved by using automated exposure control and/or adjustment of mA and/or kV according to patient size and/or use of iterative reconstruction technique. Findings: Liver/Biliary System: No liver masses. No intra or extrahepatic biliary dilatation. Contracted gallbladder. No gallstones or cholecystitis. Pancreas/Spleen: No pancreatic lesions are seen. Pancreatic duct is not dilated. No evidence of acute pancreatitis. No splenomegaly. Kidneys/Adrenals: A 2 mm right renal nonobstructing stone. A 3 mm left renal nonobstructing stone. No ureteral stones. No hydronephrosis or hydroureter bilaterally. No adrenal nodules. Aorta/Vessels: No evidence of aortic aneurysm. Evaluation of vessels is limited due to lack of IV contrast. Bowel/Fluid/Nodes: No bowel dilatation. No bowel wall thickening. Appendix was not precisely identified, however no secondary signs of appendicitis present. No ascites or fluid collections. No adenopathy. Lung bases: No acute consolidation. No pleural effusion. Round atelectasis in left lung base. Other findings: No aggressive osseous lesions are seen. Pelvis: No pelvic masses or adenopathy. No free fluid seen in the pelvis. Bladder, uterus and adnexa are unremarkable. Other Findings: No aggressive osseous lesions are seen. Impression: A 2 mm right renal nonobstructing stone. A 3 mm left renal nonobstructing stone. No ureteral or bladder stones. No hydronephrosis or hydroureter bilaterally. Electronically authenticated by: EMILIANA HAWKINS Date: 2022-06-08 20:45 [facility] Evaluation + Plan note Note Date & Type Note Facility Evaluation + Plan note No data available for this section [facility] Evaluation note Note Date & Type Note Facility Evaluation note Diagnosis Lumbar back pain with radiculopathy affecting left lower extremity documented in this encounter [facility] Evaluation note Note Date & Type Note Facility Evaluation note Diagnosis Lumbar back pain with radiculopathy affecting left lower extremity Vitamin D deficiency documented in this encounter [facility] Discharge instructions Note Date & Type Note Facility Hospital Discharge instructions No data available for this section [facility] Instructions Note Date & Type Note Facility Instructions Not on filedocumented in this en counter [facility] Note Date & Type Note Facility Instructions Not on filedocumented in this en counter [facility] Instructions Note Date & Type Note Facility Instructions Not on filedocumented in this en counter [facility] Progress note Note Date & Type Note Facility Progress note No data available for this section [facility] Summary Purpose Family History No Family History Records FoundNo Family History Records FoundNo Family History Records FoundNo Family History Records FoundNo Family History Records Found Advance Directives No Advanced Directives Records FoundNo Advanced Directives Records FoundNo Advanced Directives Records FoundNo Advanced Directives Records FoundNo Advanced Directives Records Found Hospital Course Note Admission Information Tara t: Tory Peoples : 1985 Admission date: 12/02/2019 Discharge date: 12/03/2019 CODE STATUS: Full code PCP: unknown Consult: Technology Lead Diagnoses: 1. Heroin addiction 2. Tobacco user 3. Transaminitis 4. Hepatitis C reactive Hospital Course Patient admitted for medical withdrawal management of heroin. She is interested in Vivitrol injection outpatient. Comfort medications administered. Liver function tests mildly elevated likely secondary to Hepatitis C. HIV negative. Patient continued to do well with her symptoms and decided that she wanted to be discharged home to continue further withdrawal at home. Patient spoke with her family members and felt comfortable being discharged home with some comfort meds which have been prescribed for 3 days. Patient is to follow-up tomorrow with [facility]'s dependency case manager and has further follow-up appointments to schedule her outpatient Vivitrol injection. All questions have been answered patient is being (more content not included)... Additional Source Comments INFORMATION SOURCE (unrecogn ized section and content) DATE CREATED AUTHOR 01/27/2020 [facility] DATE CREATED AUTHOR AUTHOR'S ORGANIZ ATION 11/02/2020 [facility] DATE CREATED AUTHOR AUTHOR'S ORGANIZ ATION 10/03/2022 [facility] DATE CREATED AUTHOR AUTHOR'S ORGANIZ ATION 02/22/2023 [facility] DATE CREATED AUTHOR AUTHOR'S ORGANIZ ATION 11/08/2023 [facility] EPIC Patient Care team informatio n (unrecognized section and content) Junior Architect Relationship Specialty Start Date End Date Rony Cox, SHIPWRIGHT HELPER-SLASHER TENDER HELPER [address] [address] PCP - General Family Medicine 11/03/22 Junior Architect Relationship Specialty Start Date End Date Rony Cox, DANA-DAISY [address] [place] [address] PCP - General Family Medicine 11/03/22 Junior Architect Relationship Specialty Start Date End Date Rony CoxLISA [address] [place] [address] PCP - General Family Medicine 11/03/22 Reason for Visit (unrecogniz ed section and content) Reason Comments Med Refill FOR RECORDS PERTAINING TO PATIENTS WHO ARE OR HAVE BEEN ENROLLED IN A CHEMICAL DEPENDENCY/SUBSTANCEABUSE PROGRAM, SOME INFORMATION MAY BE OMITTED. This clinical summary was aggregated from multiple sources. Caution should be exercised in using it in the provision of clinical care. This summary normalizes information from multiple sources, and as a consequence, information in this document may materially change the coding, format and clinical context of patient data. In addition, data may be omitted in some cases. CLINICAL DECISIONS SHOULD BE BASED ON THE PRIMARY CLINICAL RECORDS. [facility] [employer] provides no warranty or guarantee of the accuracy or completeness of information in this document.
[2023-11-13 17:01] LABS: Basophils Absolute Auto 0.1 10^3/uL (0.0-0.1); Basophils Percent Auto 0.7 % (0.2-2.0); Eosinophils Absolute Auto 0.3 10^3/uL (0.0-0.7); Eosinophils Percent Auto 2.4 % (0.9-7.0); Hematocrit 36.7 % (36.0-48.0); Hemoglobin 12.3 g/dL (12.0-16.0); Immature Granulocytes Abs Auto 0.04 10^3/uL (0.00-0.03); Immature Granulocytes Pct Auto 0.4 % (0.0-0.5); Mean Corpuscular HGB Conc 33.5 g/dL (29.9-35.2); Mean Corpuscular Hemoglobin 28.6 pg (26.7-34.0); Mean Corpuscular Volume 85.3 fL (81.0-99.0); Mean Platelet Volume 11.6 fL (9.5-13.5); Monocytes Absolute Auto 0.5 10^3/uL (0.3-0.8); Monocytes Percent Auto 4.5 % (1.7-12.0); Neutrophils Absolute Auto 7.3 10^3/uL (1.4-6.5); Platelet Count 202 10^3/uL (150-450); Red Cell Distribution Width 14.7 % (11.0-15.0); White Blood Count 11.2 10^3/uL (4.0-11.0)
[2023-11-13 17:07] LABS: Estimated Average Glucose 100 mg/dL; Glycohemoglobin A1C 5.1 % (4.5-6.2)
[2023-11-13 17:14] LABS: Partial Thromboplastin Time 28.5 sec (22.3-36.2); Prothrombin Time 10.6 sec (9.0-11.6)
[2023-11-13 17:21] LABS: HCG Quantitative <1 mIU/mL; Thyroid Stimulating Hormone 2.031 uIU/mL (0.358-3.740)
[2023-11-13 17:29] LABS: Free T4 1.02 ng/dL (0.76-1.46)
== END 2023-11-13 16:40 | disposition home or self-care (01) ==
LOC: LAB 16:39
PROVIDERS: PCP Nurse Practitioner; Visit Provider Obstetrics & Gynecology
DX: N92.0 Excessive and frequent menstruation with regular cycle (principal)
CPT/HCPCS: 36415; 83036; 84439; 84443; 84702; 85025; 85610; 85730

== ENCOUNTER 2023-11-23 15:57 | Outpatient (OUT) | payer MEDICAID, SELFPAY ==
--- NOTE | 2023-11-23 | US_ITS ---
[address] [address] Patient Name: TORY HSU MRN: [id number] date: 1985 Sex: F Assigned Patient Location: Current Patient Location: Accession/Order Number: [id number] Exam Date: 11/23/2023 17:30 Report Date: 11/27/2023 07:45 At the request of: MACHO BUTLER Procedure: US pelvis w/ transvaginal EXAMINATION: US pelvis w/ transvaginal HISTORY: Menorrhagia/pelvic pain COMPARISON: No relevant comparison available. TECHNIQUE: Transabdominal and/or transvaginal sonographic examination was performed as indicated by examination type. FINDINGS: UTERUS: Normal size and appearance. Incidental nabothian cysts within cervix. Uterus size: 9.2 x 4.5 x 4.4 cm ENDOMETRIUM: Normal homogeneous appearance. Endometrial thickness: 7 mm RIGHT OVARY: Contains a 2.3 cm benign-appearing cyst. Duplex Doppler demonstrates normal waveform and flow; resistive index 0.5. Ovary size: 4.0 x 2.2 x 3.1 cm LEFT OVARY: Normal size and appearance. Duplex Doppler demonstrates normal waveform and flow; resistive index 0.6. Ovary size: 2.8 x 1.6 x 2.6 cm CUL-DE-SAC: Unremarkable. No significant free fluid. BLADDER: Unremarkable. OTHER: None. US/US pelvis w/ transvaginal IMPRESSION: 1. Right ovary contains a 2.3 cm benign-appearing cysts which may contribute to patient's symptoms. Otherwise unremarkable pelvis. Electronically authenticated by: VIRY DAVIS Date: 11/27/2023 07:45
--- OUTSIDE RECORDS SUMMARY | 2023-11-23 16:01 | XMS_ITS ---
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[employer]ATER Work Phone: [facility] Comment on above: Lumbar back pain wit h radiculopathy affecting left lower extremity Start: 08-06-2023 Refill Rony J Cast illo [employer]OM SUPERVIS[employer] Work Phone: [facility] Start: 02-21-2023 End: 02-22-2023 ambulatory RONY COX Facility:[facility] Start: 02-21-2023 End: 02-21-2023 Patient encounter procedure Li Deutsch [facility] Start: 01-24-2023 ambulatory RONYLamonte COX Facili ty:[facility] Start: 09-19-2022 End: 09-19-[address] JOSE AGUILAR . Facility:[facility] Start: 07-12-2022 End: 07-12-2022 ambulatory NONE LISTED REQUEST Facility:[facility] Start: 07-10-2022 End: 07-10-[address] NONE LISTED REQUEST Facility:[facility] Start: 06-08-2022 End: 06-08-[address] NONE LISTED REQUEST Facility:[facility] Start: 11-23-2021 End: 11-23-[address] NONE LISTED REQUEST Facility:[facility] Start: 10-27-2020 End: 10-28-2020 ambulatory ARIE Kim [facility] Start: 10-27-2020 End: 10-27-2020 Subsequent hospital visit by physician [facility] Start: 10-27-2020 End: 10-28-2020 ambulatory [facility] Start: 10-27-2020 End: 10-27-2020 Subsequent hospital visit by physician [facility] Start: 06-03-2020 End: 2020 ambulatory ARIE [facility] Start: 06-03-2020 End: 06-03-2020 Subsequent hospital visit by physician [facility] Start: 05-12-2020 End: 05-13-2020 ambulatory ARIE [facility] Start: 05-12-2020 End: 05-12-2020 Subsequent hospital visit by physician [facility] Start: 05-11-2020 End: 05-12-2020 ambulatory ARIE [facility] Start: 05-11-2020 End: 05-11-2020 Subsequent hospital visit by physician [facility] Start: 12-02-2019 End: 12-03-2019 Patient encounter procedure Gerson Sheppard Facility:[facility] Immunizations Immunization Date Immunization Notes Care Provider Jordan walter 12-20-2009 tetanus toxoid, redu jarrett diphtheria toxoid, and acellular pertussis vaccine, adsorbed Li Deutsch [facility] Medications Current Medications Medication Drug Class(es) Dates Sig (Normalized) Sig (Original) ARIPiprazole 5 mg oral tablet (4 sources) Atypical Antipsychotic Start: 06-14-2023 take 1 tablet by mouth in the morning ARIPiprazole (ABILIFY) 5 mg tablet Indications: Bipolar affective disorder, currently depressed, mild ([facility]) Take 1 tablet (5 mg total) by [...] Indications: Bipolar affective disorder, currently depressed, mild ([facility]) Take 1 tablet (10 mg total) by [...] sources) Start: 06-14-2023 take 1 capsule by [facility] twice daily Fish OiL 300-1,000 mg capsule [...] sources) Nonsteroidal Anti-inflammatory Drug Start: 06-14-2023 End: 09-12-2023 take 1 tablet by mouth once daily [...] Refills(s) 0 Start Date: 02/21/23 Status: Ordered Payers Date Payer Category Payer Medicaid [place] [id number] 2022-Present [address] [place] [address] [id number] 2019 Unknown 2018 Unknown [id number] 1985 Unknown [id number] 1985 Unknown [id number] 1985 Unknown [id number] 1987 Unknown [id number] 1987 Unknown [id number] 1987 Unknown [id number] 1987 Unknown [id number] [id number] 1987 Unknown [id number] [id number] 1987 Unknown [id number] 1987 Unknown [id number] [id number] 1987 Unknown [id number] 1957 Medicaid [id number] 1957 Unknown [id number] 1957 Unknown [id number] Plan of Treatment Date Care Activity Detail Author Start: 07-11-2024 Tobacco Counseling Tobacco Counselin g [facility] Start: 06-14-2024 Adult BMI Follow Up Plan Adult BMI Follow Up Plan [facility] Start: 06-14-2024 Adult BMI Screening Adult BMI Screen ing [facility] Start: 06-14-2024 Depression Screening Depression Scre ening [facility] Start: 06-14-2024 Tobacco Screening Tobacco Screening [facility] Start: 03-02-2023 Influenza vaccination Influenza Vacc ine [facility] Start: 03-02-2021 Influenza vaccination Flu vacc ine (Season Ended) [facility] [employer] Work Phone: Start: 03-02-2020 Influenza vaccination Flu vaccine (# 1) [place], [place] Start: 12-21-2019 DTaP,Tdap and Td Vaccines (2 - Td or Tdap) DTaP,Tdap and Td Vaccines (2 - Td or Tdap) [facility] Start: 2008 Screening for malign ant neoplasm of cervix Pap Smear [facility] Start: 2003 COVID-19 Vaccine (1) COVID-19 Vaccin e (1) [facility] Phone: End: 05-12-2020 Hepatitis C RNA, quantitative, PCR Hepatitis C RNA, quantitative, PCR Lab Routine Once for 1 Occurrences starting 05/12/2020 until 05/12/2020 [employer] [place] Comment on above: Once for 1 Occurrenc es starting 05/12/2020 until 05/12/2020 [facility], quantitative, [facility] End: 10-27-2020 Hepatitis C RNA, quantitative, PCR Hepatitis C RNA, quantitative, PCR Lab Routine Once for 1 Occurrences starting 10/27/2020 until 10/27/2020 [facility] Phone: Comment on above: Once for 1 Occurrenc es starting 10/27/2020 until 10/27/2020 Problems Active Problems Problem Classification Problem Date Documented Date Episodic/Chronic Immunizations and screening for infectious disease (1 source) Encounter for screening for human papillomavirus (HPV); Translations: [ENC SCREENING HUMAN PAPILLOMAVIRUS] Onset: 09-23-2022 Episodic Nutritional deficiencies (1 source) Vitamin D deficiency; Translations: [Vitamin D deficiency, unspecified] 09-12-2023 Chronic Other aftercare (1 source) Other fdc (current) drug therapy; Translations: [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 THERAPY] Onset: 07-13-2022 Episodic Other [...] [UTI SITE NOT SPECIFIED] Onset: 06-12-2022 Episodic Procedures Date Procedure Procedure Detail Performing Clinician Start: 06-14-2023 Adult depression scr eening assessment Rony Cox [employer] SUPER[employer] Work Phone: Start: 10-27-2020 Antibody hiv-1&hiv-2 single result Arie Hernandez [employer] SUPER[employer] Work Phone: Start: 10-27-2020 Comprehensive metabo lic panel Arie Hernandez [employer]OM SUPER[employer] Work Phone: Start: 10-27-2020 IMMATURE PLATELET FRACTION Arie Hernandez [employer]OM SUPER[employer] Work Phone: Start: 05-12-2020 Antibody hiv-1&hiv-2 single result ARIE HERNANDEZ Start: 05-12-2020 Blood count complete automated ARIE HERNANDEZ Start: 05-12-2020 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 ARIE HERNANDEZ Start: 05-12-2020 Acute hepatitis panel E chucky Hernandez Work Phone: Start: 05-12-2020 Antibody hiv-1&hiv-2 single result Arie Hernandez Work Phone: Start: 05-12-2020 Blood count complete automated Arie Hernandez Work Phone: Start: 05-12-2020 Comprehensive metabo lic panel Arie Hernandez Work Phone: Start: 05-12-2020 Gonadotropin chorion ic qualitative Arie Hernandez Work Phone: Start: 05-12-2020 IMMATURE PLATELET FRACTION Arie Hernandez Work Phone: Results Test Name Value Interpretation Reference Range Facil ity Lab Reportson 02-21-2023 Lab Reports [id number]#[id number]:127 Normal [facility] RAD - CT Reporton 02-21-2023 RAD - CT Report [id number] #1.00CD:127 Normal [facility] Physician Referralon 023 Physician Referral [id number] #1.00CD:127 Normal [facility] PAP ACOG PANEL 2: 30 to 65on 09-28-2022 . . Normal [facility] Comment on above: Result Comment: Perf ormed at: WB Performed By: #### [id number] #### [facility] [address] [address] [address] Oneyda Rodriguez Age Gdln ACOG Testing 30-65 Normal [facility] Comment on above: Performed By: #### [id number] #### [facility] [address] [address] [address] Oneyda Rodriguez DIAGNOSIS: Comment [facility] Comment on above: Result Comment: NEGA TIVE FOR INTRAEPITHELIAL LESION OR MALIGNANCY. REACTIVE CELLULAR CHANGES AND/OR REPAIR ARE PRESENT. Performed at: WB Performed By: #### [id number] #### [facility] [address] [address] [address] Oneyda Rodriguez Electronically signed by: Comment Normal [facility] Comment on above: Result Comment: Gila Lopez MD, Pathologist Performed at: WB Performed By: #### [id number] #### [facility] [address] [address] [address] Oneyda Rodriguez HPV Aptima Negative Normal Negative [facility] Comment on above: Result Comment: This nucleic acid amplification test detects fourteen high-risk HPV types (16,18,31,33,35,39,45,51,52,56,58,59,66,68) without differentiation. Performed at: =G Performed By: #### [id number] #### [facility] [address] [address] [address] Oneyda Rodriguez HPV Genotype Reflex Comment Normal [facility] Comment on above: Result Comment: Crit eria not met, HPV Genotype not performed. Performed at: WB Performed By: #### [id number] #### [facility] [address] [address] [address] Oneyda Rodriguez Methodology: Comment Normal [facility] Comment on above: Result Comment: This liquid based ThinPrep(R) pap test was screened with the use of an image guided system. Performed at: WB Performed By: #### [id number] #### [facility] [address] [place] [address] Dr. Oneyda Rodriguez Note: Comment Normal [facility] Comment on above: Result Comment: The Pap smear is a screening test designed to aid in the detection of premalignant and malignant conditions of the uterine cervix. It is not a diagnostic procedure and should not be used as the sole means of detecting cervical cancer. Both false-positive and false-negative reports do occur. . Performed at: WB Performed By: #### [id number] #### [facility] [address] [place] [address] Dr. Oneyda Rodriguez Performed by: Comment Normal [facility] Comment on above: Result Comment: Katie Elliott, Supervisory Diaphragm Builder (ASCP) Performed at: WB Performed By: #### [id number] #### [facility] [address] [place] [address] Dr. Oneyda Rodriguez Specimen adequacy: Comment Normal [facility] Comment on above: Result Comment: Sati sfactory for evaluation. Endocervical and/or squamous metaplastic cells (endocervical component) are present. Performed at: WB Performed By: #### [id number] #### [facility] [address] [place] [address] Dr. Oneyda Rodriguez CULTURE URINEon 06-11-2022 CULTURE [...] S F Trimethoprim/Sulfame thoxazole <=20 S F Normal [facility] Comment on above: Performed By: #### U RCX #### [facility] [address] [address] [address] Oneyda Rodriguez CBC AUTO DIFFon 06-08-2022 BASO # 0.1 103/ul Normal 0.0-0.1 [facility] Comment on above: Performed By: #### C BC #### [facility] [address] [address] [address] Oneyda Rodriguez Basophils/100 WBC (Bld) 0.5 % Normal 0.2-2.0 [facility] Comment on above: Performed By: #### C BC #### [facility] [address] [address] [address] Oneyda Rodriguez EO # 0.2 103/ul Normal 0.0-0.7 [facility] Comment on above: Performed By: #### C BC #### [facility] [address] [address] [address] Oneyda Rodriguez Eosinophils/100 WBC (Bld) 1.6 % Normal 0.9-7.0 [facility] Comment on above: Performed By: #### C BC #### [facility] [address] [address] [address] Oneyda Rodriguez Erythrocyte distribution width (RBC) [Ratio] 13.4 % Normal 11.0-15.0 [facility] Comment on above: Performed By: #### C BC #### [facility] [address] [address] [address] Oneyda Rodriguez Hematocrit (Bld) [Volume fraction] 35.4 % Critically low 36.0-48.0 [facility] Comment on above: Performed By: #### C BC #### [facility] [address] [address] [address] Oneyda Rodriguez Hemoglobin (Bld) [Mass/Vol] 12.2 g/dL Normal 12.0-16.0 [facility] Comment on above: Performed By: #### C BC #### [facility] [address] [address] [address] Oneyda Rodriguez IG # 0.05 10e3/ul Critically high 0.00-0.03 [facility] Comment on above: Performed By: #### C BC #### [facility] [address] [place] [address] Dr. Oneyda Rodriguez IG % 0.4 % Normal 0.0-0.5 [facility] Comment on above: Performed By: #### C BC #### [facility] [address] [place] [address] Dr. Oneyda Rodriguez LYMPH # 2.2 103/ul Normal 1.2-3.8 [facility] Comment on above: Performed By: #### C BC #### [facility] [address] [place] [address] Dr. Oneyda Rodriguez Lymphocytes/100 WBC (Bld) 16.6 % Critically low 20.5-60.0 [facility] Comment on above: Performed By: #### C BC #### [facility] [address] [place] [address] Dr. Oneyda Rodriguez MANUAL DIFF REQ NO Normal [facility] Comment on above: Performed By: #### C BC #### [facility] [address] [place] [address] Dr. Oneyda Rodriguez MCH (RBC) [Entitic mass] 29.7 pg Normal 26.7-34.0 [facility] Comment on above: Performed By: #### C BC #### [facility] [address] [place] [address] Dr. Oneyda Rodriguez MCHC (RBC) [Mass/Vol] 34.5 g/dL Normal 29.9-35.2 [facility] Comment on above: Performed By: #### C BC #### [facility] [address] [place] [address] Dr. Oneyda Rodriguez MCV (RBC) [Entitic vol] 86.1 fL Normal 81.0-99.0 [facility] Comment on above: Performed By: #### C BC #### [facility] [address] [place] [address] Dr. Oneyda Rodriguez MONO # 0.6 103/ul Normal 0.3-0.8 [facility] Comment on above: Performed By: #### C BC #### [facility] [address] [address] [address] Oneyda Rodriguez Monocytes/100 WBC (Bld) 4.2 % Normal 1.7-12.0 [facility] Comment on above: Performed By: #### C BC #### [facility] [address] [address] [address] Oneyda Rodriguez NEUT # 10.3 103/ul Critically high 1.4-6.5 [facility] Comment on above: Performed By: #### C BC #### [facility] [address] [address] [address] Oneyda Rodriguez Neutrophils/100 WBC (Bld) 76.7 % Critically high 43.0-75.0 [facility] Comment on above: Performed By: #### C BC #### [facility] [address] [place] [address] Dr. nOeyda Rodriguez Platelet mean volume (Bld) [Entitic vol] 11.1 fL Normal 9.5-13.5 [facility] Comment on above: Performed By: #### C BC #### [facility] [address] [place] [address] Dr. Oneyda Rodriguez PLT 184 103/ul Normal 150-450 [facility] Comment on above: Performed By: #### C BC #### [facility] [address] [place] [address] Dr. Oneyda Rodriguez RBC 4.11 106/ul Critically low 4.20-5.40 [facility] Comment on above: Performed By: #### C BC #### [facility] [address] [place] [address] Dr. Oneyda Rodriguez WBC 13.4 103/ul Critically high 4.0-11.0 [facility] Comment on above: Performed By: #### C BC #### [facility] [address] [place] [address] Dr. Oneyda Rodriguez ER URINE PROFILEon 2 Bilirubin Ql (U) Negative Normal NEGATIVE [facility] Comment on above: Performed By: #### E BILL TRAORE #### [facility] [address] [place] [address] Dr. Oneyda Rodriguez Clarity (U) CLEAR Normal CLEAR [facility] Comment on above: Performed By: #### HENRI LIRO #### [facility] [address] [place] [address] Dr. Oneyda Rodriguez Color (U) LT. YELLOW Normal YELLOW [facility] Comment on above: Performed By: #### KIKI LIICRO #### [facility] [address] [place] [address] Dr. Oneyda FREDERICK A micrscopic examination will be performed if indicated. Normal [facility] Comment on above: Performed By: #### KIKI LIICRO #### [facility] [address] [place] [address] Dr. Oneyda Rodriguez Glucose Ql (U) Negative Normal NEGATIVE [facility] Comment on above: Performed By: #### KIKI LIICRO #### [facility] [address] [place] [address] Dr. Oneyda Rodriguez Hemoglobin Ql (U) SMALL Abnormal NEGATIVE [facility] Comment on above: Performed By: #### KIKI LIICRO #### [facility] [address] [place] [address] Dr. Oneyda Rodriguez Ketones Ql (U) Negative Normal NEGATIVE [facility] Comment on above: Performed By: #### KIKI LIICRO #### [facility] [address] [place] [address] Dr. Oneyda Rodriguez LEUKOCYTES SMALL Abnormal NEGATIVE [facility] Comment on above: Performed By: #### Lamonte TRAORE UMICRO #### [facility] [address] [place] [address] Dr. Oneyda Rodriguez Nitrite Ql (U) Positive Abnormal NEGATIVE [facility] Comment on above: Performed By: #### Lamnote TRAORE UMICRO #### [facility] [address] [place] [address] Dr. Oneyda Rodriguez pH (U) 6.0 [pH] Normal 5-9 [facility] Comment on above: Performed By: #### Lamonte TRAORE, UMICRO #### [facility] [address] [place] [address] Dr. Oneyda Rodriguez SPEC GRAVITY 1.025 Normal 1.005-<=1.025 [facility] Comment on above: Performed By: #### Lamonte TRAORE, UMICRO #### [facility] [address] [place] [address] Dr. Oneyda Rodriguez UA PROTEIN TRACE Normal NEGATIVE/ TRACE [facility] Comment on above: Performed By: #### Lamonte TRAORE, UMICRO #### [facility] [address] [place] [address] Dr. Oneyda Rodriguez UR MICRO IND INDICATED Normal [facility] Comment on above: Performed By: #### Lamonte TRAORE, UMICRO #### [facility] [address] [place] [address] Dr. Oneyda Rodriguez Urobilinogen Qn (U) 0.2 {Saul'U}/dL Normal 0.2 - 1. 0 [facility] Comment on above: Performed By: #### Lamonte TRAORE, UMICRO #### [facility] [address] [place] [address] Dr. Oneyda Rodriguez PREG HCG QUALon 06-08-2022 , QUAL Negative Normal NEGATIVE [facility] Comment on above: Performed By: #### Lamonte TRAORE, UMICRO #### [facility] [address] [place] [address] Dr. Oneyda Rodriguez PROF 14(COMP METB)on 022 Albumin [Mass/Vol] 3.6 g/dL Normal 3.4-5.0 [facility] Comment on above: Performed By: #### C MP #### [facility] [address] [place] [address] Dr. Oneyda Rodriguez Albumin/Globulin [Mass ratio] 1.1 {ratio} Normal [facility] Comment on above: Performed By: #### C MP #### [facility] [address] [place] [address] Dr. Oneyda Rodriguez ALP [Catalytic activity/Vol] 115 U/L Normal 46-116 [facility] Comment on above: Performed By: #### C MP #### [facility] [address] [address] [address] Oneyda Rodriguez ALT [Catalytic activity/Vol] 52 U/L Normal 14-59 [facility] Comment on above: Performed By: #### C MP #### [facility] [address] [address] [address] Oneyda Rodriguez Anion gap [Moles/Vol] 8.2 mmol/L Normal [facility] Comment on above: Performed By: #### C MP #### [facility] [address] [address] [address] Oneyda Rodriguez AST [Catalytic activity/Vol] 21 U/L Normal 15-37 [facility] Comment on above: Performed By: #### C MP #### [facility] [address] [place] [address] Dr. Oneyda Rodriguez Bilirubin [Mass/Vol] 0.1 mg/dL Critically low 0.2-1.0 [facility] Comment on above: Performed By: #### C MP #### [facility] [address] [address] [address] Oneyda Rodriguez Calcium [Mass/Vol] 8.4 mg/dL Critically low 8.5-10.1 [facility] Comment on above: Performed By: #### C MP #### [facility] [address] [address] [address] Oneyda Rodriguez Chloride [Moles/Vol] 105 mmol/L Normal 98-107 [facility] Comment on above: Performed By: #### C MP #### [facility] [address] [address] [address] Oneyda Rodriguez CO2 [Moles/Vol] 28.3 mmol/L Normal 21.0-32.0 [facility] Comment on above: Performed By: #### C MP #### [facility] [address] [address] [address] Oneyda Rodriguez Creatinine [Mass/Vol] 0.84 mg/dL Normal 0.55-1.02 [facility] Comment on above: Performed By: #### C MP #### [facility] [address] [address] [address] Oneyda Rodriguez EGFR-AF DJIBOUTIAN >60 Normal >=60 [facility] Comment on above: Performed By: #### C MP #### [facility] [address] [address] [address] Oneyda Rodriguez EGFR-NON AF DJIBOUTIAN >60 Normal >=60 [facility] Comment on above: Performed By: #### C MP #### [facility] [address] [address] [address] Oneyda Rodriguez Globulin (S) [Mass/Vol] 3.3 g/dL Normal [facility] Comment on above: Performed By: #### C MP #### [facility] [address] [place] [address] Dr. Oneyda Rodriguez Glucose [Mass/Vol] 85 mg/dL Normal 74-106 [facility] Comment on above: Performed By: #### C MP #### [facility] [address] [address] [address] Oneyda Rodriguez Potassium [Moles/Vol] 3.5 mmol/L Normal 3.5-5.1 [facility] Comment on above: Performed By: #### C MP #### [facility] [address] [place] [address] Dr. Oneyda Rodriguez Protein [Mass/Vol] 6.9 g/dL Normal 6.4-8.2 [facility] Comment on above: Performed By: #### C MP #### [facility] [address] [address] [address] Oneyda Rodriguez Sodium [Moles/Vol] 138 mmol/L Normal 136-145 [facility] Comment on above: Performed By: #### C MP #### [facility] [address] [address] [address] Oneyda Rodriguez Urea nitrogen [Mass/Vol] 14.0 mg/dL Normal 7.0-18.0 [facility] Comment on above: Performed By: #### C MP #### [facility] [address] [address] [address] Oneyda Rodriguez Urea nitrogen/Creatinine [Mass ratio] 16.7 mg/mg Normal [facility] Comment on above: Performed By: #### C MP #### [facility] [address] [place] [address] Dr. Oneyda Rodriguez URINE MICROSCOPIC ONLYon BACTERIA TRACE Abnormal NONE SEEN [facility] Comment on above: Performed By: #### E RUR, UMICRO #### [facility] [address] [place] [address] Dr. Oneyda Rodriguez Bacteria identified Cx Nom (U) INDICATED Normal [facility] Comment on above: Performed By: #### E RUR, UMICRO #### [facility] [address] [place] [address] Dr. Oneyda Rodriguez CAST NONE SEEN Normal NONE SEEN [facility] Comment on above: Performed By: #### E RUR, UMICRO #### [facility] [address] [place] [address] Dr. Oneyda Rodriguez Crystals LM Nom (Urine sed) NONE SEEN Normal NONE SEEN [facility] Comment on above: Performed By: #### E RUR, UMICRO #### [facility] [address] [place] [address] Dr. Oneyda Rodriguez Epithelial cells LM Ql (Urine sed) RARE Normal NONE SEEN /RARE [facility] Comment on above: Performed By: #### E RUR, UMICRO #### [facility] [address] [place] [address] Dr. Oneyda Rodriguez MUCOUS NONE SEEN Normal NONE SEEN [facility] Comment on above: Performed By: #### E RUR, UMICRO #### [facility] [address] [place] [address] Dr. Oneyda Rodriguez RBC NONE SEEN Abnormal 0-2 [facility] Comment on above: Performed By: #### E RUR, UMICRO #### [facility] [address] [place] [address] Dr. Oneyda Rodriguez WBC 2-5 Abnormal NONE SEEN [facility] Comment on above: Performed By: #### E RUR, UMICRO #### [facility] [address] [address] [address] Oneyda Rodriguez CBC AUTO DIFFon 11-23-2021 BASO # 0.1 103/ul Normal 0.0-0.1 [facility] Comment on above: Performed By: #### C BC #### [facility] [address] [address] [address] Oneyda Rodriguez Basophils/100 WBC (Bld) 0.5 % Normal 0.2-2.0 [facility] Comment on above: Performed By: #### C BC #### [facility] [address] [place] [address] Dr. Oneyda Rodriguez EO # 0.3 103/ul Normal 0.0-0.7 [facility] Comment on above: Performed By: #### C BC #### [facility] [address] [place] [address] Dr. Oneyda Rodriguez Eosinophils/100 WBC (Bld) 2.4 % Normal 0.9-7.0 [facility] Comment on above: Performed By: #### C BC #### [facility] [address] [place] [address] Dr. Oneyda Rodriguez Erythrocyte distribution width (RBC) [Ratio] 14.8 % Normal 11.0-15.0 [facility] Comment on above: Performed By: #### C BC #### [facility] [address] [place] [address] Dr. Oneyda Rodriguez Hematocrit (Bld) [Volume fraction] 36.0 % Normal 36.0-48.0 [facility] Comment on above: Performed By: #### C BC #### [facility] [address] [place] [address] Dr. Oneyda Rodriguez Hemoglobin (Bld) [Mass/Vol] 11.8 g/dL Critically low 12.0-16.0 [facility] Comment on above: Performed By: #### C BC #### [facility] [address] [place] [address] Dr. Oneyda Rodriguez IG # 0.05 10e3/ul Critically high 0.00-0.03 [facility] Comment on above: Performed By: #### C BC #### [facility] [address] [place] [address] Dr. Oneyda Rodriguez IG % 0.4 % Normal 0.0-0.5 [facility] Comment on above: Performed By: #### C BC #### [facility] [address] [place] [address] Dr. Oneyda Rodriguez LYMPH # 3.2 103/ul Normal 1.2-3.8 [facility] Comment on above: Performed By: #### C BC #### [facility] [address] [place] [address] Dr. Oneyda Rodriguez Lymphocytes/100 WBC (Bld) 24.3 % Normal 20.5-60.0 [facility] Comment on above: Performed By: #### C BC #### [facility] [address] [place] [address] Dr. Oneyda Rodriguez MANUAL DIFF REQ NO Normal [facility] Comment on above: Performed By: #### C BC #### [facility] [address] [place] [address] Dr. Oneyda Rodriguez MCH (RBC) [Entitic mass] 29.2 pg Normal 26.7-34.0 [facility] Comment on above: Performed By: #### C BC #### [facility] [address] [place] [address] Dr. Oneyda Rodriguez MCHC (RBC) [Mass/Vol] 32.8 g/dL Normal 29.9-35.2 [facility] Comment on above: Performed By: #### C BC #### [facility] [address] [place] [address] Dr. Oneyda Rodriguez MCV (RBC) [Entitic vol] 89.1 fL Normal 81.0-99.0 [facility] Comment on above: Performed By: #### C BC #### [facility] [address] [place] [address] Dr. Oneyda Rodriguez MONO # 0.6 103/ul Normal 0.3-0.8 [facility] Comment on above: Performed By: #### C BC #### [facility] [address] [address] [address] Oneyda Rodriguez Monocytes/100 WBC (Bld) 4.9 % Normal 1.7-12.0 [facility] Comment on above: Performed By: #### C BC #### [facility] [address] [address] [address] Oneyda Rodriguez NEUT # 8.8 103/ul Critically high 1.4-6.5 [facility] Comment on above: Performed By: #### C BC #### [facility] [address] [address] [address] Oneyda Rodriguez Neutrophils/100 WBC (Bld) 67.5 % Normal 43.0-75.0 [facility] Comment on above: Performed By: #### C BC #### [facility] [address] [place] [address] Dr. Oneyda Rodriguez Platelet mean volume (Bld) [Entitic vol] 12.5 fL Normal 9.5-13.5 [facility] Comment on above: Performed By: #### C BC #### [facility] [address] [address] [address] Oneyda Rodriguez PLT 213 103/ul Normal 150-450 [facility] Comment on above: Performed By: #### C BC #### [facility] [address] [place] [address] Dr. Oneyda Rodriguez RBC 4.04 106/ul Critically low 4.20-5.40 [facility] Comment on above: Performed By: #### C BC #### [facility] [address] [address] [address] Oneyda Rodriguez WBC 13.1 103/ul Critically high 4.0-11.0 [facility] Comment on above: Performed By: #### C BC #### [facility] [address] [place] [address] Dr. Oneyda Rodriguez CRPon 11-23-2021 CRP [Mass/Vol] mg/L Normal <=1.0 [facility] Comment on above: Performed By: #### BILL LI #### [facility] [address] [place] [address] HEAD WO CONon [...] by: SHARON MC Date: 2021-11-23 06:36 Normal [facility] LACTATE/LACTIC ACIDon 2021 Lactate [Moles/Vol] 0.7 mmol/L Normal 0.4-1.9 [facility] Comment on above: Performed By: #### L ACT #### [facility] [address] [place] [address] Dr. Oneyda Rodriguez PROF 14(COMP METB)on 022 Albumin [Mass/Vol] 3.9 g/dL Normal 3.4-5.0 [facility] Comment on above: Performed By: #### HENRI LIRO #### [facility] [address] [place] [address] Dr. Oneyda Rodriguez Albumin/Globulin [Mass ratio] 1.1 {ratio} Normal [facility] Comment on above: Performed By: #### HENRI LIRO #### [facility] [address] [place] [address] Dr. Oneyda Rodriguez ALP [Catalytic activity/Vol] 107 U/L Normal 46-116 [facility] Comment on above: Performed By: #### HENRI LIRO #### [facility] [address] [place] [address] Dr. Oneyda Rodriguez ALT [Catalytic activity/Vol] 62 U/L Critically high 14-59 [facility] Comment on above: Performed By: #### BILL LI #### [facility] [address] [place] [address] Dr. Oneyda Rodriguez Anion gap [Moles/Vol] 12.2 mmol/L Normal [facility] Comment on above: Performed By: #### BILL LI #### [facility] [address] [place] [address] Dr. Oneyda Rodriguez AST [Catalytic activity/Vol] 26 U/L Normal 15-37 [facility] Comment on above: Performed By: #### BILL LI #### [facility] [address] [place] [address] Dr. Oneyda Rodriguez Bilirubin [Mass/Vol] 0.3 mg/dL Normal 0.2-1.0 [facility] Comment on above: Performed By: #### BILL LI #### [facility] [address] [place] [address] Dr. Oneyda Rodriguez Calcium [Mass/Vol] 8.8 mg/dL Normal 8.5-10.1 [facility] Comment on above: Performed By: #### BILL LI #### [facility] [address] [place] [address] Dr. Oneyda Rodriguez Chloride [Moles/Vol] 104 mmol/L Normal 98-107 [facility] Comment on above: Performed By: #### BILL LI #### [facility] [address] [place] [address] Dr. Oneyda Rodriguez CO2 [Moles/Vol] 28.9 mmol/L Normal 21.0-32.0 [facility] Comment on above: Performed By: #### BILL LI #### [facility] [address] [place] [address] Dr. Oneyda Rodriguez Creatinine [Mass/Vol] 0.73 mg/dL Normal 0.55-1.02 [facility] Comment on above: Performed By: #### HENRI LIRO #### [facility] [address] [address] [address] Oneyda Rodriguez EGFR-AF DJIBOUTIAN >60 Normal >=60 [facility] Comment on above: Performed By: #### HENRI LIRO #### [facility] [address] [address] [address] Oneyda Rodriguez EGFR-NON AF DJIBOUTIAN >60 Normal >=60 [facility] Comment on above: Performed By: #### HENRI LIRO #### [facility] [address] [place] [address] Dr. Oneyda Rodriguez Globulin (S) [Mass/Vol] 3.4 g/dL Normal [facility] Comment on above: Performed By: #### HENRI LIRO #### [facility] [address] [place] [address] Dr. Oneyda Rodriguez Glucose [Mass/Vol] 105 mg/dL Normal 74-106 [facility] Comment on above: Performed By: #### HENRI LIRO #### [facility] [address] [place] [address] Dr. Oneyda Rodriguez Potassium [Moles/Vol] 3.1 mmol/L Critically low 3.5-5.1 [facility] Comment on above: Performed By: #### HENRI LIRO #### [facility] [address] [place] [address] Dr. Oneyda Rodriguez Protein [Mass/Vol] 7.3 g/dL Normal 6.4-8.2 [facility] Comment on above: Performed By: #### HENRI LIRO #### [facility] [address] [place] [address] Dr. Oneyda Rodriguez Sodium [Moles/Vol] 142 mmol/L Normal 136-145 [facility] Comment on above: Performed By: #### HENRI LIRO #### [facility] [address] [address] [address] Oneyda Rodriguez Urea nitrogen [Mass/Vol] 12.0 mg/dL Normal 7.0-18.0 [facility] Comment on above: Performed By: #### BILL LI #### [facility] [address] [address] [address] Oneyda Rodriguez Urea nitrogen/Creatinine [Mass ratio] 16.4 mg/mg Normal [facility] Comment on above: Performed By: #### BILL LI #### [facility] [address] [address] [address] Oneyda Rodirguez TROPONIN, HIGH SENSITIVITYon 11-23-2021 HSTROP 4.8 pg/mL Normal 4.0-51.3 [facility] Comment on above: Result Comment: CUT- OFF POINTS HAVE BEEN ESTABLISHED BASED ON THE FOURTH UNIVERSAL DEFINITIONS OF MYOCARDIAL INFARCTION. THE UPPER REFERENCE LIMIT (URL) OF TROPONIN, DEFINED THE 99TH PERCENTILE OF cTnI DISTRIBUTION IN A REFERENCE POPULATION, HAS BEEN CONFIRMED THE DECISION THRESHOLD FOR HI DIAGNOSIS. Performed By: #### BILL LI #### [facility] [address] [address] [address] Oneyda Rodriguez HCV RNA,Quant,PCRon 11-02-19 HCV RNA,Quant,PCR Specimen Description .PLASMA Special Requests QUALITATIVE Direct Exam HCV RNA DETECTED 994,000 IU/ML (6.00 LOG IU/ML) This test is a sensitive method for quantitating HCV RNA viral loads in plasma. It utilizes RT-PCR in the FDA approved Ejm Ampliprep/Taqman 48 System. This test is intended [...] Health Department Report Status FINAL 11/01/2020 Normal [facility] Comment on above: Performed By: #### H CVQ #### [facility] [address] [place] [address] Certified Scrum Master: Valdo Diaz MD [facility] [address] [place] [address] Certified Scrum Master: Mateo Mir MD CBCon 10-27-2020 Erythrocyte distribution width (RBC) [Ratio] 14.4 % Normal 11.8-14.4 [facility] Comment on above: Performed By: #### I PF, CBC, CP, HCG #### [address] [place] [address] Certified Scrum Master: Mateo Mir MD #### HIVCMB, PHEP #### [address] [phone] Certified Scrum Master: Valdo Diaz MD Hematocrit (Bld) [Volume fraction] 38.8 % Normal 36.3-47.1 [facility] Comment on above: Performed By: #### I PF, CBC, CP, HCG #### [address] [place] [phone] Certified Scrum Master: Mateo Mir MD #### HIVCMB, PHEP #### [address] [phone] Certified Scrum Master: Valdo Diaz MD Hemoglobin (Bld) [Mass/Vol] 12.4 g/dL Normal 11.9-15.1 [facility] Comment on above: Performed By: #### I PF, CBC, CP, HCG #### [address] [place] [phone] Certified Scrum Master: Mateo Mir MD #### HIVCMB, PHEP #### [address] [phone] Certified Scrum Master: Valdo Diaz MD MCH (RBC) [Entitic mass] 28.0 pg Normal 25.2-33.5 [facility] Comment on above: Performed By: #### I PF, CBC, CP, HCG #### [address] [place] [address] Certified Scrum Master: Mateo Mir MD #### HIVCMB, PHEP #### [address] [address] Certified Scrum Master: Valdo Diaz MD MCHC (RBC) [Mass/Vol] 32.0 g/dL Normal 28.4-34.8 [facility] Comment on above: Performed By: #### I PF, CBC, CP, HCG #### [address] [place] [address] Certified Scrum Master: Mateo Mir MD #### HIVCMB, PHEP #### [address] [address] Certified Scrum Master: Valdo Diaz MD MCV (RBC) [Entitic vol] 87.6 fL Normal 82.6-102.9 [facility] Comment on above: Performed By: #### I PF, CBC, CP, HCG #### [address] [place] [address] Certified Scrum Master: Mateo Mir MD #### HIVCMB, PHEP #### [place] [address] Certified Scrum Master: Valdo Diaz MD MPV NOT REPORTED Normal 8.1-13.5 [facility] Comment on above: Performed By: #### I PF, CBC, CP, HCG #### [address] [place] [phone] Certified Scrum Master: Mateo Mir MD #### HIVCMB, PHEP #### [place] [address] Certified Scrum Master: Valdo Diaz MD NRBC Automated 0.0 per 100 WBC Normal 0.0 [facility] Comment on above: Performed By: #### I PF, CBC, CP, HCG #### [address] [place] [phone] Certified Scrum Master: Mateo Mir MD #### HIVCMB, PHEP #### [address] [place], [place] [phone] Certified Scrum Master: Valdo Diaz MD Platelet Count See Reflexed IPF Result Normal 138-453 [facility] Comment on above: Performed By: #### I PF, CBC, CP, HCG #### [address] [place] [phone] Certified Scrum Master: Mateo Mir MD #### HIVCMB, PHEP #### [address] [address] Certified Scrum Master: Valdo Diaz MD RBC (Bld) [#/Vol] 4.43 10*6/uL Normal 3.95-5.11 [facility] Comment on above: Performed By: #### I PF, CBC, CP, HCG #### [address] [place] [phone] Certified Scrum Master: Mateo Mir MD #### HIVCMB, PHEP #### [address] [address] Certified Scrum Master: Valdo Diaz MD WBC (Bld) [#/Vol] 8.2 10*3/uL Normal 3.5-11.3 [facility] Comment on above: Performed By: #### I PF, CBC, CP, HCG #### [address] [place] [phone] Certified Scrum Master: Mateo Mir MD #### HIVCMB, PHEP #### [address] [phone] Certified Scrum Master: Valdo Diaz MD CBCOrdered By: Arie Hernandez on 10-27-2020 Hematocrit (Bld) [Volume fraction] 38.8 % 36.3 - 47.1 % [facility] Work Phone: Hemoglobin.gastrointes tinal spec 1 Ql (Stl) 12.4 g/dL 11.9 - 15.1 g/dL [facility] Phone: MCH (RBC) [Entitic mass] 28.0 pg 25.2 - 33.5 pg [facility] Phone: MCHC (RBC) [Mass/Vol] 32.0 g/dL 28.4 - 34.8 g/dL [facility] Phone: MCV (RBC) [Entitic vol] 87.6 fL 82.6 - 102.9 fL [facility] Phone: NRBC Automated 0.0 0.0 per 100 WBC [facility] Phone: Platelet distribution width (Bld) [Ratio] 14.4 % 11.8 - 14.4 % [facility] Phone: Platelet mean volume (Bld) [Entitic vol] NOT REPORTED 8.1 - 13.5 fL [facility] Phone: Platelets (Bld) [#/Vol] See Reflexed IPF Result [facility] Phone: RBC (Bld) [#/Vol] 4.43 10*6/uL 3.95 - 5.1 1 m/uL [facility] Phone: WBC (Bld) [#/Vol] 8.2 10*3/uL [facility] Phone: Comp Metabolic Profon 2020 (cont.) Normal [facility] Comment on above: Result Comment: Aver age GFR for 30-39 years old: 107 mL/min/1.73sq m Chronic Kidney Disease: <60 mL/min/1.73sq m Kidney failure: <15 mL/min/1.73sq m eGFR calculated using average adult body mass. Additional eGFR calculator available at: http://www.Kiwigrid.FastBooking/multiple_crcl_2011.htm Performed By: #### I PF, CBC, CP, HCG #### [address] [place], [place] [phone] Certified Scrum Master: Mateo Mir MD #### HIVCMB, PHEP #### [address] [phone] Certified Scrum Master: Valdo Diaz MD Albumin [Mass/Vol] 3.6 g/dL Normal 3.5-5.2 [facility] Comment on above: Performed By: #### I PF, CBC, CP, HCG #### [address] [place], [place] [phone] Certified Scrum Master: Mateo Mir MD #### HIVCMB, PHEP #### [address] [phone] Certified Scrum Master: Valdo Diaz MD Albumin/Glob Ratio 1.2 Normal 1.0-2.5 [facility] Comment on above: Performed By: #### I PF, CBC, CP, HCG #### [address] [place], [place] [phone] Certified Scrum Master: Mateo Mir MD #### HIVCMB, PHEP #### [address] [phone] Certified Scrum Master: Valdo Diaz MD Alkaline Phos 174 U/L High 35-104 [facility] Comment on above: Performed By: #### I PF, CBC, CP, HCG #### [address] [place], [place] [id number] Certified Scrum Master: Mateo Mir MD #### HIVCMB, PHEP #### [address] [phone] Certified Scrum Master: Valdo Diaz MD ALT [Catalytic activity/Vol] 65 U/L High 5-33 [facility] Comment on above: Performed By: #### I PF, CBC, CP, HCG #### [address] [place] [address] Certified Scrum Master: Mateo Mir MD #### HIVCMB, PHEP #### [address] [place], [place] [phone] Certified Scrum Master: Valdo Diaz MD Anion gap [Moles/Vol] 8 mmol/L Low 9-17 [facility] Comment on above: Performed By: #### I PF, CBC, CP, HCG #### [facility] [address] [place] [address] [place] [address] Certified Scrum Master: Mateo Mir MD #### HIVCMB, PHEP #### [address] [phone] Certified Scrum Master: Valdo Diaz MD AST [Catalytic activity/Vol] 42 U/L High <32 [facility] Comment on above: Performed By: #### I PF, CBC, CP, HCG #### [address] [place] [address] Certified Scrum Master: Mateo Mir MD #### HIVCMB, PHEP #### [address] [phone] Certified Scrum Master: Valdo Diaz MD Bilirubin [Mass/Vol] 0.20 mg/dL Low 0.3-1.2 [facility] Comment on above: Performed By: #### I PF, CBC, CP, HCG #### [address] [place] [address] Certified Scrum Master: Mateo Mir MD #### HIVCMB, PHEP #### [address] [place], [place] [phone] Certified Scrum Master: Valdo Diaz MD BUN/CRE Ratio 12 Normal 9-20 [facility] Comment on above: Performed By: #### I PF, CBC, CP, HCG #### [facility] [address] [place], [place] [id number] Certified Scrum Master: Mateo Mir MD #### HIVCMB, PHEP #### [address] [phone] Certified Scrum Master: Valdo Diaz MD Calcium [Mass/Vol] 9.2 mg/dL Normal 8.6-10.4 [facility] Comment on above: Performed By: #### I PF, CBC, CP, HCG #### [address] [place], [place] [phone] Certified Scrum Master: Mateo Mir MD #### HIVCMB, PHEP #### [address] [phone] Certified Scrum Master: Valdo Diaz MD Chloride [Moles/Vol] 107 mmol/L Normal 98-107 [facility] Comment on above: Performed By: #### I PF, CBC, CP, HCG #### [address] [place], [place] [phone] Certified Scrum Master: Mateo Mir MD #### HIVCMShavon, PHEP #### [address] [phone] Certified Scrum Master: Valdo Diaz MD CO2 [Moles/Vol] 26 mmol/L Normal 20-31 [facility] Comment on above: Performed By: #### I PF, CBC, CP, HCG #### [address] [place], [place] [phone] Certified Scrum Master: Mateo Mir MD #### HIVCMB, PHEP #### [address] [phone] Certified Scrum Master: Valdo Diaz MD Creatinine [Mass/Vol] 0.67 mg/dL Normal 0.50-0.90 [facility] Comment on above: Performed By: #### I PF, CBC, CP, HCG #### [address] [place], [place] [phone] Certified Scrum Master: Mateo Mir MD #### HIVCMB, PHEP #### [address] [phone] Certified Scrum Master: Valdo Diaz MD GFR, Amer >60 Normal >60 [facility] Comment on above: Performed By: #### I PF, CBC, CP, HCG #### [address] [place], [place] [phone] Certified Scrum Master: Mateo Mir MD #### HIVCMB, PHEP #### [address] [phone] Certified Scrum Master: Valdo Diaz MD GFR,non Amer >60 Normal >60 [facility] Comment on above: Performed By: #### I PF, CBC, CP, HCG #### [address] [place], [place] [phone] Certified Scrum Master: Mateo Mir MD #### HIVCMB, PHEP #### [address] [phone] Certified Scrum Master: Valdo Diaz MD Glucose [Mass/Vol] 99 mg/dL Normal 70-99 [facility] Comment on above: Performed By: #### I PF, CBC, CP, HCG #### [address] [place], [place] [phone] Certified Scrum Master: Mateo Mir MD #### HIVCMB, PHEP #### [address] [phone] Certified Scrum Master: Valdo Diaz MD Potassium [Moles/Vol] 4.2 mmol/L Normal 3.7-5.3 [facility] Comment on above: Performed By: #### I PF, CBC, CP, HCG #### [address] [place], [place] [id number] Certified Scrum Master: Mateo Mir MD #### HIVCMB, PHEP #### [address] [phone] Certified Scrum Master: Valdo Diaz MD Protein [Mass/Vol] 6.6 g/dL Normal 6.4-8.3 [facility] Comment on above: Performed By: #### I PF, CBC, CP, HCG #### [address] [place], [place] [id number] Certified Scrum Master: Mateo Mir MD #### HIVCMB, PHEP #### [address] [id number] Certified Scrum Master: Valdo Diaz MD Sodium [Moles/Vol] 141 mmol/L Normal 135-144 [facility] Comment on above: Performed By: #### I PF, CBC, CP, HCG #### [address] [place] [address] Certified Scrum Master: Mateo Mir MD #### HIVCMShavon, PHEP #### [address] [id number] Certified Scrum Master: Valdo Diaz MD Staging: Normal [facility] Comment on above: Result Comment: Stag e 1: Some kidney damage normal GFR Stage 2: Mild kidney damage GFR 60-89 Stage 3: Moderate kidney damage GFR 30-59 Stage 4: Severe kidney damage GFR 15-29 Stage 5: Severe kidney damage GFR <15 ESRD - chronic treatment by dialysis or transplant Performed By: #### I PF, CBC, CP, HCG #### [address] [place] [address] Certified Scrum Master: Mateo Mir MD #### HIVCMB, PHEP #### [address] [place], [place] [id number] Certified Scrum Master: Valdo Diaz MD Urea nitrogen [Mass/Vol] 8 mg/dL Normal 6-20 [facility] Comment on above: Performed By: #### I PF, CBC, CP, HCG #### [facility] [address] [place] [address] Certified Scrum Master: Mateo iMr MD #### HIVCMB, PHEP #### [facility] [address] [place], [place] [phone] Certified Scrum Master: Valdo Diaz MD Comprehensive Metabolic Pane lOrdered By: Arie Hernandez on 10-27-2020 Albumin [Mass/Vol] 3.6 g/dL 3.5 - 5.2 g/dL [facility] [employer] Work Phone: Albumin/Globulin [Mass ratio] 1.2 {ratio} [facility] [employer] Phone: ALP (Bld) [Catalytic activity/Vol] 174 U/L High 35 - 104 U/L [facility] [employer] Phone: ALT [Catalytic activity/Vol] 65 U/L High 5 - 33 U/L [facility] [employer] Phone: Anion gap [Moles/Vol] 8 mmol/L Low 9 - 17 mmol/L [facility] [employer] Phone: AST [Catalytic activity/Vol] 42 U/L High <32 [facility] [employer] Phone: Bilirubin [Mass/Vol] 0.20 mg/dL Low 0.3 - 1.2 mg/dL [facility] [employer] Phone: Calcium [Mass/Vol] 9.2 mg/dL 8.6 - 10. 4 mg/dL [facility] Phone: Chloride [Moles/Vol] 107 mmol/L 98 - 107 mmol/L [facility] Phone: CO2 [Moles/Vol] 26 mmol/L 20 - 31 mmol/L [facility] [employer] Phone: Creatinine [Mass/Vol] 0.67 mg/dL 0.50 - 0.90 mg/dL [facility] Phone: Free PSA/Total PSA [Mass fraction] 6.6 g/dL 6.4 - 8.3 g/dL [facility] Phone: GFR >60 >60 mL/min [employer] Phone: GFR Non- >60 >60 mL/min [facility] Phone: Glucose [Mass/Vol] 99 mg/dL 70 - 99 mg/dL [facility] [employer] Phone: Potassium [Moles/Vol] 4.2 mmol/L 3.7 - 5.3 mmol/L [facility] Phone: Sodium [Moles/Vol] 141 mmol/L 135 - 144 mmol/L [facility] Phone: Urea nitrogen (BldV) [Mass/Vol] 8 mg/dL 6 - 20 mg/dL [facility] Phone: Urea nitrogen/Creatinine (Bld) [Mass ratio] 12 [facility] Phone: HCG Qualitative, SerumOrdere d By: Arie Hernandez on 10-27-2020 hCG Qual Negative NEGATIVE [facility] Phone: Comment on above: Specimens with hCG l evels near the threshold of the test (25 mIU/mL) may give a negative or indeterminate result. In such cases, another test should be performed with a new specimen in 48-72 hours. If early is suspected clinically in this setting, correlation with quantitative serum b-hCG level is suggested. [facility] has confirmed the use of plasma for this test. This has not been cleared or approved by the U.S. Food and Drug Administration. The FDA has determined that such clearance is not necessary. HCG Screen, Bloodon 10-28-19 21 HCG Screen, Blood Negative Normal NEG [facility] Comment on above: Result Comment: Spec imens with hCG levels near the threshold of the test (25 mIU/mL) may give a negative or indeterminate result. In such cases, another test should be performed with a new specimen in 48-72 hours. If early is suspected clinically in this setting, correlation with quantitative serum b-hCG level is suggested. [facility] has confirmed the use of plasma for this test. This has not been cleared or approved by the U.S. Food and Drug Administration. The FDA has determined that such clearance is not necessary. Performed By: #### I PF, HCG, CP, CBC #### [address] [place] [address] Certified Scrum Master: Fidel Hallman MD #### HIVCMB, PHEP #### [address] [place], [place] [phone] Certified Scrum Master: Valdo Diaz MD HIV Ag/Abon 10-27-2020 HIV Ag/Ab Non-Reactive Normal NR [facility] Comment on above: Result Comment: No l aboratory evidence of HIV infection. If acute HIV infection is suspected, consider testing for HIV-1 RNA. Performed By: #### I PF, HCG, CP, CBC #### [address] [place] [address] Certified Scrum Master: Fidel Hallman MD #### HIVCMB, PHEP #### [address] [place], [place] [phone] Certified Scrum Master: Valdo Diaz MD HIV ScreenOrdered By: Arie Hernandez on 10-27-2020 HIV Ag/Ab Non-Reactive NONREACTIVE [facility] Work Phone: Comment on above: No laboratory eviden ce of HIV infection. If acute HIV infection is suspected, consider testing for HIV-1 RNA. [facility] 10[facility] Hep A Ab,IgM Non-Reactive Normal NR [facility] Comment on above: Performed By: #### I PF, HCG, CP, CBC #### [address] [place] [address] Certified Scrum Master: Fidel Hallman MD #### HIVCMB, PHEP #### [address] [place] [address] Certified Scrum Master: Valdo Diaz MD Hep B Core Ab,IgM Non-Reactive Normal [facility] Comment on above: Performed By: #### I PF, HCG, CP, CBC #### [facility] [address] [place] [address] Dr. [place], [place] [phone] Certified Scrum Master: Fidel Hallman MD #### HIVCMB, PHEP #### [address] [address] Certified Scrum Master: Valdo Diaz MD Hep B Surf Ag Non-Reactive Normal [facility] Comment on above: Performed By: #### I PF, HCG, CP, CBC #### [address] [place], [place] [phone] Certified Scrum Master: Fidel Hallman MD #### HIVCMB, PHEP #### [address] [address] Certified Scrum Master: Valdo Diaz MD Hep C Ab Reactive Abnormal [facility] Comment on above: Result Comment: The hepatitis [...] #### I PF, HCG, CP, CBC #### [address] [place], [place] 7233883 Certified Scrum Master: Fidel Hallman MD #### HIVCMB, PHEP #### [address] [place] [address] Certified Scrum Master: Valdo Diaz MD Hepatitis Panel, AcuteOrdere d By: Arie Hernandez on 10-27-2020 HAV IgM IA Qn (S) Non-Reactive NONREACTIVE [facility] [employer] Work Phone: Hep B Core Ab, IgM Non-Reactive NONREACTIVE [facility] [employer] Work Phone: Hepatitis B Surface Ag Non-Reactive NONREACTIVE [facility] [employer] Work Phone: Hepatitis C Ab Reactive Abnormal NONREACTIVE [facility] Work Phone: Comment on above: The hepatitis [...] Interpretation and review of laboratory results Abnormal [facility] [employer] Phone: Immature Platelet FractionOr dered By: Arie Hernandez on 10-27-2020 Platelet, Fluorescence 123 Low Me [facility] [employer] Phone: Platelet, Immature Fraction 15.9 % High 1.1 - 10.3 % [facility] [employer] Phone: Laboratory - Chemistry and C hemistry - challengeOrdered By: Arie Hernandez on 10-27-2020 GFR/1.73 sq M.predicted MDRD (S/P/Bld) [Vol rate/Area] [facility] [employer] Phone: Comment on above: Average GFR for 30-3 9 years old: 107 mL/min/1.73sq m Chronic Kidney Disease: <60 mL/min/1.73sq m Kidney failure: <15 mL/min/1.73sq m eGFR calculated using average adult body mass. Additional eGFR calculator available at: http://www.Kiwigrid.FastBooking/multiple_crcl_2012.htm Stage 1: Some kidney damage normal GFR Stage 2: Mild kidney damage GFR 60-89 Stage 3: Moderate kidney damage GFR 30-59 Stage 4: Severe kidney damage GFR 15-29 Stage 5: Severe kidney damage GFR <15 ESRD - chronic treatment by dialysis or transplant No Panel InformationOrdered By: Arie Hernandez on 10-27-2020 Interpretation and review of laboratory results Abnormal [facility] Work Phone: PLT, Immature Fract.on 10-27 Platelet, Fluoresc. 123 k/uL Low 138-453 [facility] Comment on above: Performed By: #### I PF, CBC, CP, HCG #### [facility] [address] [place] [place] [address] Certified Scrum Master: Mateo Mir MD #### HIVCMB, PHEP #### [address] [place], [place] [phone] Certified Scrum Master: Valdo Diaz MD PLT, Immature Fract. 15.9 % High 1.1-10.3 [facility] Comment on above: Performed By: #### I PF, CBC, CP, HCG #### [facility] [address] [place] [address] Certified Scrum Master: Mateo Mir MD #### HIVCMB, PHEP #### [address] [place], [place] 1887608 Certified Scrum Master: Valdo Diaz MD HCV RNA,Quant,PCRon 05-13-20 20 [...] Health Department Report Status FINAL 05/13/2020 Normal [facility] Comment on above: Performed By: #### I PF, HCG, CP, CBC #### [address] [place] [phone] Certified Scrum Master: Fidel Hallman MD #### HIVCMB, PHEP #### [address] [phone] Certified Scrum Master: Valdo Diaz MD CBCon 05-12-2020 Erythrocyte distribution width (RBC) [Ratio] 14.7 % High 11.8 - 14.4 % [place], [place] Erythrocyte distribution width (RBC) [Ratio] 14.7 % High 11.8-14.4 [facility] Comment on above: Performed By: #### I PF, HCG, CP, CBC #### [address] [place] [address] Certified Scrum Master: Fidel Hallman MD #### HIVCMShavon, PHEP #### [address] [phone] Certified Scrum Master: Valdo Diaz MD Hematocrit (Bld) [Volume fraction] 39.7 % 36.3 - 47.1 % [place], [place] Hematocrit (Bld) [Volume fraction] 39.7 % Normal 36.3-47.1 [facility] Comment on above: Performed By: #### I PF, HCG, CP, CBC #### [address] [place] [address] Certified Scrum Master: Fidel Hallman MD #### HIVCMShavon, PHEP #### [address] [phone] Certified Scrum Master: Valdo Diaz MD Hemoglobin (Bld) [Mass/Vol] 12.2 g/dL 11.9 - 15.1 g/dL [place], [place] Hemoglobin (Bld) [Mass/Vol] 12.2 g/dL Normal 11.9-15.1 [facility] Comment on above: Performed By: #### I PF, HCG, CP, CBC #### [address] [place] [phone] Certified Scrum Master: Fidel Hallman MD #### HIVCMB, PHEP #### [address] [phone] Certified Scrum Master: Valdo Diaz MD MCH (RBC) [Entitic mass] 27.6 pg 25.2 - 33.5 pg [place], [place] MCH (RBC) [Entitic mass] 27.6 pg Normal 25.2-33.5 [facility] Comment on above: Performed By: #### I PF, HCG, CP, CBC #### [address] [place] [phone] Certified Scrum Master: Fidel Hallman MD #### HERBERTHCMShavon, PHEP #### [address] [phone] Certified Scrum Master: Valdo Diaz MD MCHC (RBC) [Mass/Vol] 30.7 g/dL 28.4 - 34.8 g/dL [place] MCHC (RBC) [Mass/Vol] 30.7 g/dL Normal 28.4-34.8 [facility] Comment on above: Performed By: #### I PF, HCG, CP, CBC #### [address] [place] [phone] Certified Scrum Master: Fidel Hallman MD #### HIVBLUE, PHEP #### [address] [phone] Certified Scrum Master: Valdo Diaz MD MCV (RBC) [Entitic vol] 89.8 fL 82.6 - 102.9 fL [place] MCV (RBC) [Entitic vol] 89.8 fL Normal 82.6-102.9 [facility] Comment on above: Performed By: #### I PF, HCG, CP, CBC #### [address] [place] [phone] Certified Scrum Master: Fidel Hallman MD #### HIVCMB, PHEP #### [address] [phone] Certified Scrum Master: Valdo Diaz MD MPV NOT REPORTED Normal 8.1-13.5 [facility] Comment on above: Performed By: #### I PF, HCG, CP, CBC #### [facility] [address] [place] [address] [place] [phone] Certified Scrum Master: Fidel Hallman MD #### HIVCMB, PHEP #### [address] [phone] Certified Scrum Master: Valdo Diaz MD NRBC Automated 0.0 per 100 WBC Normal 0.0 [facility] Comment on above: Performed By: #### I PF, HCG, CP, CBC #### [address] [place] [phone] Certified Scrum Master: Fidel Hallman MD #### HIVCMB, PHEP #### [address] [phone] Certified Scrum Master: Valdo Diaz MD Platelet Count See Reflexed IPF Result Normal 138-453 [facility] Comment on above: Performed By: #### I PF, HCG, CP, CBC #### [address] [place] [phone] Certified Scrum Master: Fidel Hallman MD #### HIVCMB, PHEP #### [address] [phone] Certified Scrum Master: Valdo Diaz MD Platelet mean volume (Bld) [Entitic vol] NOT REPORTED 8.1 - 13.5 fL [facility], [place] Platelets (Bld) [#/Vol] See Reflexed IPF Result [place], [place] RBC (Bld) [#/Vol] 4.42 10*6/uL 3.95 - 5.1 1 m/uL [facility], [place] RBC (Bld) [#/Vol] 4.42 10*6/uL Normal 3.95-5.11 [facility] Comment on above: Performed By: #### I PF, HCG, CP, CBC #### [address] [place] [address] Certified Scrum Master: Fidel Hallman MD #### HIVCMB, PHEP #### [facility] [address] [place], [place] [phone] Certified Scrum Master: Valdo Diaz MD WBC (Bld) [#/Vol] 0.0 10*3/uL 0.0 per 100 WBC [place], [place] WBC (Bld) [#/Vol] 8.9 10*3/uL [place] WBC (Bld) [#/Vol] 8.9 10*3/uL Normal 3.5-11.3 [facility] Comment on above: Performed By: #### I PF, HCG, CP, CBC #### [address] [place] [address] Certified Scrum Master: Fidel Hallman MD #### HIVCMB, PHEP #### [facility] [address] [place], [place] [phone] Certified Scrum Master: Valdo Diaz MD Comp Metabolic Profon 2019 (cont.) [facility] Comment on above: Result Comment: Aver age GFR for 30-39 years old: 107 mL/min/1.73sq m Chronic Kidney Disease: <60 mL/min/1.73sq m Kidney failure: <15 mL/min/1.73sq m eGFR calculated using average adult body mass. Additional eGFR calculator available at: http://[email or web address].com/multiple_crcl_2012.htm Performed By: #### I PF, HCG, CP, CBC #### [address] [place] [address] Certified Scrum Master: Fidel Hallman MD #### HIVCMB, PHEP #### [address] [address] Certified Scrum Master: Valdo Diaz MD Albumin [Mass/Vol] 3.9 g/dL Normal 3.5-5.2 [facility] Comment on above: Performed By: #### I PF, HCG, CP, CBC #### [facility] [address] [place] [address] Dr. [place], [place] [phone] Certified Scrum Master: Fidel Hallman MD #### HIVCMB, PHEP #### [address] [phone] Certified Scrum Master: Valdo Diaz MD Albumin/Glob Ratio 1.3 Normal 1.0-2.5 [facility] Comment on above: Performed By: #### I PF, HCG, CP, CBC #### [facility] [address] [place] [address] Dr. [place], [place] [phone] Certified Scrum Master: Fidel Hallman MD #### HIVCMB, PHEP #### [address] [address] Certified Scrum Master: Valdo Diaz MD Alkaline Phos 122 U/L High 35-104 [facility] Comment on above: Performed By: #### I PF, HCG, CP, CBC #### [facility] [address] [place] [address] Dr. [place], [place] [phone] Certified Scrum Master: Fidel Hallman MD #### HIVCMB, PHEP #### [address] [address] Certified Scrum Master: Valdo Diaz MD ALT [Catalytic activity/Vol] 98 U/L High 5-33 [facility] Comment on above: Performed By: #### I PF, HCG, CP, CBC #### [facility] [address] [place] [address] Dr. [place], [place] [phone] Certified Scrum Master: Fidel Hallman MD #### HIVCMB, PHEP #### [address] [place] [address] Certified Scrum Master: Valdo Diaz MD Anion gap [Moles/Vol] 11 mmol/L Normal 9-17 [facility] Comment on above: Performed By: #### I PF, HCG, CP, CBC #### [facility] [address] [place], [place] [phone] Certified Scrum Master: Fidel Hallman MD #### HIVCMB, PHEP #### [address] [address] Certified Scrum Master: Valdo Diaz MD AST [Catalytic activity/Vol] 51 U/L High <32 [facility] Comment on above: Performed By: #### I PF, HCG, CP, CBC #### [facility] [address] [place] [address] [place], [place] [phone] Certified Scrum Master: Fidel Hallman MD #### HIVCMB, PHEP #### [address] [address] Certified Scrum Master: Valdo Diaz MD Bilirubin [Mass/Vol] 0.20 mg/dL Low 0.3-1.2 [facility] Comment on above: Performed By: #### I PF, HCG, CP, CBC #### [facility] [address] [place] [address] Dr. [place], [place] [phone] Certified Scrum Master: Fidel Hallman MD #### HIVCMB, PHEP #### [address] [address] Certified Scrum Master: Valdo Diaz MD BUN/CRE Ratio 14 Normal 9-20 [facility] Comment on above: Performed By: #### I PF, HCG, CP, CBC #### [facility] [address] [place] [address] Dr. [place], [place] [phone] Certified Scrum Master: Fidel Hallman MD #### HIVCMB, PHEP #### [address] [address] Certified Scrum Master: Valdo Diaz MD Calcium [Mass/Vol] 9.3 mg/dL Normal 8.6-10.4 [facility] Comment on above: Performed By: #### I PF, HCG, CP, CBC #### [facility] [address] [place], [place] [phone] Certified Scrum Master: Fidel Hallman MD #### HIVCMB, PHEP #### [address] [phone] Certified Scrum Master: Valdo Diaz MD Chloride [Moles/Vol] 109 mmol/L High 98-107 [facility] Comment on above: Performed By: #### I PF, HCG, CP, CBC #### [facility] [address] [place], [place] [phone] Certified Scrum Master: Fidel Hallman MD #### HIVCMB, PHEP #### [address] [phone] Certified Scrum Master: Valdo Diaz MD CO2 [Moles/Vol] 23 mmol/L Normal 20-31 [facility] Comment on above: Performed By: #### I PF, HCG, CP, CBC #### [facility] [address] [place], [place] [phone] Certified Scrum Master: Fidel Hallman MD #### HIVCMB, PHEP #### [address] [address] Certified Scrum Master: Valdo Diaz MD Creatinine [Mass/Vol] 0.69 mg/dL Normal 0.50-0.90 [facility] Comment on above: Performed By: #### I PF, HCG, CP, CBC #### [facility] [address] [place], [place] [phone] Certified Scrum Master: Fidel Hallman MD #### HIVCMB, PHEP #### [address] [address] Certified Scrum Master: Valdo Diaz MD GFR, Amer >60 Normal >60 [facility] Comment on above: Performed By: #### I PF, HCG, CP, CBC #### [facility] [address] [place], [place] [phone] Certified Scrum Master: Fidel Hallman MD #### HIVCMB, PHEP #### [address] [phone] Certified Scrum Master: Valdo Diaz MD GFR,non Amer >60 Normal >60 [facility] Comment on above: Performed By: #### I PF, HCG, CP, CBC #### [facility] [address] [place] [address] [place], [place] [phone] Certified Scrum Master: Fidel Hallman MD #### HIVCMB, PHEP #### [address] [address] Certified Scrum Master: Valdo Diaz MD Glucose [Mass/Vol] 154 mg/dL High 70-99 [facility] Comment on above: Performed By: #### I PF, HCG, CP, CBC #### [facility] [address] [place] [address] [place], [place] [phone] Certified Scrum Master: Fidel Hallman MD #### HIVCMB, PHEP #### [address] [address] Certified Scrum Master: Valdo Diaz MD Potassium [Moles/Vol] 3.9 mmol/L Normal 3.7-5.3 [facility] Comment on above: Performed By: #### I PF, HCG, CP, CBC #### [facility] [address] [place], [place] [phone] Certified Scrum Master: Fidel Hallman MD #### HIVCMB, PHEP #### [address] [address] Certified Scrum Master: Valdo Daiz MD Protein [Mass/Vol] 7.0 g/dL Normal 6.4-8.3 [facility] Comment on above: Performed By: #### I PF, HCG, CP, CBC #### [address] [place] [address] Certified Scrum Master: Fidle Hallman MD #### HIVCMB, PHEP #### [address] [place], [place] [phone] Certified Scrum Master: Valdo Diaz MD Sodium [Moles/Vol] 143 mmol/L Normal 135-144 [facility] Comment on above: Performed By: #### I PF, HCG, CP, CBC #### [address] [place] [address] Certified Scrum Master: Fidel Hallman MD #### HIVCMB, PHEP #### [address] [phone] Certified Scrum Master: Valdo Diaz MD Staging: Normal [facility] Comment on above: Result Comment: Stag e 1: Some kidney damage normal GFR Stage 2: Mild kidney damage GFR 60-89 Stage 3: Moderate kidney damage GFR 30-59 Stage 4: Severe kidney damage GFR 15-29 Stage 5: Severe kidney damage GFR <15 ESRD - chronic treatment by dialysis or transplant Performed By: #### I PF, HCG, CP, CBC #### [address] [place], [place] [phone] Certified Scrum Master: Fidel Hallman MD #### HIVCMB, PHEP #### [address] [place], [place] [phone] Certified Scrum Master: Valdo Diaz MD Urea nitrogen [Mass/Vol] 10 mg/dL Normal 6-20 [facility] Comment on above: Performed By: #### I PF, HCG, CP, CBC #### [address] [place] [address] Certified Scrum Master: Fidel Hallman MD #### HIVCMB, PHEP #### [facility] [address] [place] [address] Certified Scrum Master: Valdo Diaz MD Comprehensive Metabolic Pane [facility] 05-12-2020 Albumin [Mass/Vol] 3.9 g/dL 3.5 - 5.2 g/dL [place], [place] Albumin/Globulin [Mass ratio] 1.3 {ratio} [place] ALP [Catalytic activity/Vol] 122 U/L High 35 - 104 U/L [place] ALT [Catalytic activity/Vol] 98 U/L High 5 - 33 U/L [place] Anion gap [Moles/Vol] 11 mmol/L 9 - 17 mmol/L [place] AST [Catalytic activity/Vol] 51 U/L High <32 [place] Bilirubin Ql (U) 0.20 mg/dL Low 0.3 - 1.2 mg/dL [place], [place] Bun/Cre Ratio 14 [place] Calcium [Mass/Vol] 9.3 mg/dL 8.6 - 10. 4 mg/dL [place] Chloride [Moles/Vol] 109 mmol/L High 98 - 107 mmol/L [place] CO2 [Moles/Vol] 23 mmol/L 20 - 31 mmol/L [place] Creatinine [Mass/Vol] 0.69 mg/dL 0.5 - 0.9 mg/d L [place] GFR >60 >60 mL/min [place], [place] GFR Non- >60 >60 mL/min [place] Glucose [Mass/Vol] 154 mg/dL High 70 - 99 mg/dL [place], [place] Potassium [Moles/Vol] 3.9 mmol/L 3.7 - 5.3 mmol/L [place] Protein [Mass/Vol] 7.0 g/dL 6.4 - 8.3 g/dL [place] Sodium [Moles/Vol] 143 mmol/L 135 - 144 mmol/L [place] Urea nitrogen [Mass/Vol] 10 mg/dL 6 - 20 mg/dL [place] HCG Qualitative, Serumon hCG Qual Negative NEGATIVE [place] Comment on above: Specimens with hCG l evels near the threshold of the test (25 mIU/mL) may give a negative or indeterminate result. In such cases, another test should be performed with a new specimen in 48-72 hours. If early is suspected clinically in this setting, correlation with quantitative serum b-hCG level is suggested. [facility] has confirmed the use of plasma for this test. This has not been cleared or approved by the U.S. Food and Drug Administration. The FDA has determined that such clearance is not necessary. HCG Screen, Bloodon 05-12-20 20 HCG Screen, Blood Negative Normal NEG [facility] Comment on above: Result Comment: Spec imens with hCG levels near the threshold of the test (25 mIU/mL) may give a negative or indeterminate result. In such cases, another test should be performed with a new specimen in 48-72 hours. If early is suspected clinically in this setting, correlation with quantitative serum b-hCG level is suggested. [facility] has confirmed the use of plasma for this test. This has not been cleared or approved by the U.S. Food and Drug Administration. The FDA has determined that such clearance is not necessary. Performed By: #### I PF, HCG, CP, CBC #### [facility] [address] [place] [address] [place] [address] Certified Scrum Master: Fidel Hallman MD #### HIVCMB, PHEP #### [facility] [address] [place] [address] Certified Scrum Master: Valdo Diaz MD HIV Ag/Abon 05-12-2020 HIV Ag/Ab Non-Reactive Normal NR [facility] Comment on above: Result Comment: No l aboratory evidence of HIV infection. If acute HIV infection is suspected, consider testing for HIV-1 RNA. Performed By: #### I PF, HCG, CP, CBC #### [facility] [address] [place] [address] Certified Scrum Master: Fidel Hallman MD #### HIVCMB, PHEP #### [address] [address] Certified Scrum Master: Valdo Diaz MD HIV Screenon 05-12-2020 HIV Ag/Ab NONREACTIVE NONREACTIVE [place], [place] Comment on above: No laboratory eviden ce of HIV infection. If acute HIV infection is suspected, consider testing for HIV-1 RNA. Hepatitis [facility] 05-12 Hep A Ab,IgM Non-Reactive Normal NR [facility] Comment on above: Performed By: #### I PF, HCG, CP, CBC #### [facility] [address] [place] [address] [place], [place] [id number] Certified Scrum Master: Fidel Hallman MD #### HIVCMB, PHEP #### [address] [address] Certified Scrum Master: Valdo Diaz MD Hep B Core Ab,IgM Non-Reactive Normal [facility] Comment on above: Performed By: #### I PF, HCG, CP, CBC #### [facility] [address] [place] [address] [place], [place] [id number] Certified Scrum Master: Fidel Hallman MD #### HIVCMB, PHEP #### [address] [address] Certified Scrum Master: Valdo Diaz MD Hep B Surf Ag Non-Reactive Normal [facility] Comment on above: Performed By: #### I PF, HCG, CP, CBC #### [facility] [address] [place] [address] [place], [place] [id number] Certified Scrum Master: Fidel Hallman MD #### HIVCMB, PHEP #### [address] [address] Certified Scrum Master: Valdo Diaz MD Hep C Ab Reactive Abnormal [facility] Comment on above: Result Comment: The hepatitis [...] #### I PF, HCG, CP, CBC #### [facility] [address] [place] [address] Certified Scrum Master: Fidel Hallman MD #### HIVCMB, PHEP #### [facility] [address] [place] [address] Certified Scrum Master: Valdo Diaz MD Hepatitis Panel, Acuteon HAV IgM IA Qn (S) NONREACTIVE NONREACTIVE [place], [place] Hep B Core Ab, IgM NONREACTIVE NONREACTIVE [place], [place] Hepatitis B Surface Ag NONREACTIVE NONREACTIVE [place] Hepatitis C Ab REACTIVE Abnormal NONREACTIVE [place] Comment on above: The hepatitis C [...] Interpretation and review of laboratory results Abnormal [place], [place] Immature Platelet Fractionon 05-12-2020 Platelet, Fluorescence [address] [place], [place] Platelet, Immature Fraction 15.6 % High 1.1 - 10.3 % [place], [place] Metabolic Panelon 05-12-2020 GFR/1.73 sq M predicted among non-blacks MDRD (S/P/Bld) [Vol rate/Area] [place], [place] Comment on above: Average GFR for 30-3 9 years old: 107 mL/min/1.73sq m Chronic Kidney Disease: <60 mL/min/1.73sq m Kidney failure: <15 mL/min/1.73sq m eGFR calculated using average adult body mass. Additional eGFR calculator available at: http://www.globalrph.FastBooking/multiple_crcl_2012.htm Stage 1: Some kidney damage normal GFR Stage 2: Mild kidney damage GFR 60-89 Stage 3: Moderate kidney damage GFR 30-59 Stage 4: Severe kidney damage GFR 15-29 Stage 5: Severe kidney damage GFR <15 ESRD - chronic treatment by dialysis or transplant Otheron 05-12-2020 Interpretation and review of laboratory results Abnormal [facility] [place], [place] PLT, Immature Fract.on 05-12 Platelet, Fluoresc. 103 k/uL Low 138-453 [facility] Comment on above: Performed By: #### I PF, HCG, CP, CBC #### [facility] [address] [place] [address] Certified Scrum Master: Fidel Hallman MD #### HIVCMB, PHEP #### [address] [phone] Certified Scrum Master: Valdo Diaz MD PLT, Immature Fract. 15.6 % High 1.1-10.3 [facility] Comment on above: Performed By: #### I PF, HCG, CP, CBC #### [facility] [address] [place] [address] Certified Scrum Master: Fidel Hallman MD #### HIVCMB, PHEP #### [address] [id number] Certified Scrum Master: Valdo Diaz MD Ur Opiate Conf-Mayoon 2019 Ur Codeine-Hung 64 ng/mL Normal Cutoff: 25 [facility] Comment on above: Performed By: #### C BC #### [facility] [address] [place] [address] Ur Dihydrocodeine-Hung Negative Normal Cutoff: 25 [address] [facility] Comment on above: Performed By: #### C BC #### [facility] [address] [place] [address] Ur Hydrocodone-[place] Negative Normal Cutoff: 25 [facility] Comment on above: Performed By: #### C BC #### [facility] [address] [place] [address] Ur Hydromorphone-Hung Negative Normal Cutoff: 25 [facility] Comment on above: Performed By: #### C BC #### [facility] [address] [place] [address] Ur Morphine-Hung 1231 ng/mL Normal Cutoff: 25 [facility] Comment on above: Performed By: #### C BC #### [address] [place] [address] Ur Naloxone-Hung Negative Normal Cutoff: 25 [facility] Comment on above: Performed By: #### C BC #### [address] [address] Ur Norhydrocodone-Hung Negative Normal Cutoff: 25 [address] [facility] Comment on above: Performed By: #### C BC #### [address] [address] Ur Noroxycodone-Hung Negative Normal Cutoff: 25 [facility] Comment on above: Performed By: #### C BC #### [address] [place] [address] Ur Noroxymorphone-Hung Negative Normal Cutoff: 25 [facility] Comment on above: Performed By: #### C BC #### [address] [place] [address] Ur Opiates Interp-Hung Positive Normal Bl [facility] Comment on above: Result Comment: ADDITIONAL INFORMATION This report is intended for use in clinical monitoring and management of patients. It is not intended for use in employment-related testing. This test was developed and its performance characteristics determined by [facility] in a manner consistent with CLIA requirements. This test has not been cleared or approved by the U.S. Food and Drug Administration. Test Performed by: [facility] [address] Certified Scrum Master: Santiago Mendoza M.D. Ph.D.; CLIA# [id number] Performed By: #### C BC #### [address] [address] Ur Oxycodone-[place] Negative Normal Cutoff: 25 [facility] Comment on above: Performed By: #### C BC #### [address] [address] Ur Oxymorphone-[place] Negative Normal Cutoff: 25 [facility] Comment on above: Performed By: #### C BC #### [address] [address] HBc Total Abs-[facility] 020 HBc Total Ab-[place] Negative Normal Negative [facility] Comment on above: Result Comment: Test Performed by: [place] [address] Certified Scrum Master: Santiago Mendoza M.D. Ph.D.; CLIA# [id number] Performed By: #### C BC #### [address] [address] HCV RNA Qnt-[facility] 0 HepC RNA PCR Qnt-[place] 021252 IU/mL Abnormal Undetected B [facility] Comment on above: Result Comment: Resu lt in log IU/mL is 5.71. ADDITIONAL INFORMATION The quantification range of this assay is 15 to 100,000,000 IU/mL (1.18 log to 8.00 log IU/mL). Testing was performed using the kendrick HCV test ([employer] with the kendrick [id number] System. Test Performed by: [place] [address] Certified Scrum Master: Santiago Mendoza M.D. Ph.D.; CLIA# [id number] Performed By: #### C BC #### [address] [address] .eGFRon 12-03-2019 eGFR AA >60 Normal >=60 [facility] Comment on above: Order Comment: Order added by Discern rule Result Comment: Resu lt = 0-14.9 mL/min/1.73 m2 Kidney failure or Dialysis Result = 15-29 mL/min/1.73 m2 Severe decrease in GFR Result = 30-59 mL/min/1.73 m2 Moderate decrease in GFR Result >= 60 mL/min/1.73 m2 Normal or increased GFR Performed By: #### . Automated Diff #### [address] [address] eGFR Non-AA >60 Normal >=60 [facility] Comment on above: Order Comment: Order added [...] Performed By: #### . Automated Diff #### [address] [address] [facility] 12-03-2019 Albumin [Mass/Vol] 3.4 g/dL Normal 3.2-4.9 [facility] Comment on above: Result Comment: [facility] Laboratory updated the methodology used for albumin testing on 02/06/18. Albumin measurement was performed using a bromcresol purple dye-binding assay. Performed By: #### . Automated Diff #### [address] [address] Albumin/Globulin [Mass ratio] 1.1 {ratio} Normal 1.1-2.2 [facility] Comment on above: Performed By: #### . Automated Diff #### [address] [address] Alk Phos 120 IU/L High 32-91 [facility] Comment on above: Performed By: #### . Automated Diff #### [address] [address] ALT [Catalytic activity/Vol] 76 U/L High 14-54 [facility] Comment on above: Performed By: #### . Automated Diff #### [address] [address] Anion gap [Moles/Vol] 13 mmol/L Normal 7-17 [facility] Comment on above: Performed By: #### . Automated Diff #### [address] [address] AST [Catalytic activity/Vol] 53 U/L High 15-41 [facility] Comment on above: Performed By: #### . Automated Diff #### [address] [address] Bili Total 0.5 mg/dL Normal 0.3-1.2 [facility] Comment on above: Performed By: #### . Automated Diff #### [address] [address] Calcium [Mass/Vol] 8.7 mg/dL Normal 8.5-10.3 [facility] Comment on above: Performed By: #### . Automated Diff #### [address] [address] Chloride [Moles/Vol] 104 mmol/L Normal 98-110 [facility] Comment on above: Performed By: #### . Automated Diff #### [address] [address] CO2 [Moles/Vol] 26 mmol/L Normal 22-32 [facility] Comment on above: Performed By: #### . Automated Diff #### [address] [address] Creatinine [Mass/Vol] 0.75 mg/dL Normal 0.44-1.03 [facility] Comment on above: Performed By: #### . Automated Diff #### [address] [address] Glucose [Mass/Vol] 100 mg/dL High 70-99 [facility] Comment on above: Performed By: #### . Automated Diff #### [address] [address] Potassium [Moles/Vol] 3.7 mmol/L Normal 3.4-4.8 [facility] Comment on above: Performed By: #### . Automated Diff #### [address] [address] Protein [Mass/Vol] 6.5 g/dL Normal 6.5-8.1 [facility] Comment on above: Performed By: #### . Automated Diff #### [address] [address] Sodium [Moles/Vol] 139 mmol/L Normal 133-142 [facility] Comment on above: Performed By: #### . Automated Diff #### [address] [address] Urea nitrogen [Mass/Vol] 15 mg/dL Normal 8-26 [facility] Comment on above: Performed By: #### . Automated Diff #### [address] [address] Urea nitrogen/Creatinine [Mass ratio] 20.0 mg/mg Normal 10.0-20.0 [facility] Comment on above: Performed By: #### . Automated Diff #### [address] [address] Chlam & GC, DNAon 12-03-2019 Chlamydia, DNA Negative Normal Negative [facility] Comment on above: Result Comment: The APTIMA [...] clinician. Performed By: #### C BC #### [place] [id number] Gonorrhea, DNA Negative Normal Negative [facility] Comment on above: Result Comment: The APTIMA [...] clinician. Performed By: #### C BC #### [place] [address] Inpatient Clinical Summaryon 12-03-2019 [place] [address] [place] [address] Clinical Summary Person Information Name: Tory Peoples Age: 34 Years : 1985 Sex: Female PCP: Marital Status: Single Phone: PCP: Race: White Ethnicity: Not or Language: Guinean Visit Id: Visit Reason: Drug withdrawal Speciality: Acuity: Enc Type: Observation Med Service: X Medication Withdrawal Management Arrival: 12/02/2019 03:53:05 Discharge: Dispo Type: Place in Observation Address: [address] [place] [address] Diagnosis: 1:Heroin addiction; 2:Tobacco user; 3:Transaminitis; 4:Hepatitis [...] 12/03/19 11:17:00 EDT, Provider: Chasity YEAGER, Tal Wright 1 to 2 weeks, Maggie c. Follow up 12/03/19 12:52:00 EDT, 1 to 2 days, [facility] as scheduled tomorrow. Allergies No Known Allergies [...] range between ( 27.2 and 40.8 ) [place] Auto: 4.2 % -- Normal range between [...] range between ( 36.0 and 46.0 ) [place] Absolute: 0.4 x10 MCH: 28.6 pg -- [...] YOUR HOSPITAL STAY New Medications [facility], [address] [place], [place] [id number], [phone] baclofen (baclofen 10 mg oral tablet) 10 [...] OF YOUR PATIENT?S CURRENT MEDICATIONS [facility], [address] [place], [place] [id number], [phone] baclofen (baclofen 10 mg oral tablet) 10 [...] Referring Physician: Follow up: With: Address: When: [facility] [place] [address] 12/08/2019 12:30:00 Comments: Intake and diagnostic assessment With: Address: When: [facility] [place] [address] [place] [address] 12/04/2019 13:00:00 Comments: Case management appointment Normal [facility] Lipid Panelon 12-03-2019 Cardiac Risk 6.3 [facility] Comment on above: Result Comment: Men Women 1/2 Average 3.43 3.27 Average 4.97 4.44 2x Average 9.55 7.05 3x Average 23.99 11.04 Performed By: #### . Automated Diff #### [address] [address] Cholesterol [Mass/Vol] 151 mg/dL Normal 25-199 [facility] Comment on above: Result Comment: 0 - 17 years of age: Desirable 0-170 Borderline High 170-199 High >=200 18 years and older: Acceptable <200 Borderline High 200-239 High >=240 Performed By: #### . Automated Diff #### [address] [address] Cholesterol in HDL [Mass/Vol] 24.0 mg/dL Low 40.0-60.0 [facility] Comment on above: Performed By: #### . Automated Diff #### [address] [address] Cholesterol in LDL [Mass/Vol] 97 mg/dL Normal 0-99 [facility] Comment on above: Result Comment: The equation being used in this calculation is LDL = (Chol - HDL) - (Trig / 5) The optimal value of LDL for individual patients may vary. The patient's history of Artherosclerosis and other cardiac risk factors should be considered. Performed By: #### . Automated Diff #### [address] [address] Cholesterol in VLDL [Mass/Vol] 30 mg/dL Normal 8-39 [facility] Comment on above: Performed By: #### . Automated Diff #### [address] [address] Triglyceride [Mass/Vol] 152 mg/dL Normal [facility] Comment on above: Result Comment: 0 - 17 years of age: Trig 90 - 129 Borderline High Trig => 130 High 18 years and older: Trig 150 - 199 Borderline High Trig 200 - 499 High Trig =>500 Very High Performed By: #### . Automated Diff #### [address] [address] .eGFRon 12-02-2019 eGFR AA >60 Normal >=60 [facility] Comment on above: Result Comment: Resu lt = 0-14.9 mL/min/1.73 m2 Kidney failure or Dialysis Result = 15-29 mL/min/1.73 m2 Severe decrease in GFR Result = 30-59 mL/min/1.73 m2 Moderate decrease in GFR Result >= 60 mL/min/1.73 m2 Normal or increased GFR Performed By: #### E GFR #### [address] [address] eGFR Non-AA >60 Normal >=60 [facility] Comment on above: Result Comment: Resu [...] dosing. Performed By: #### E GFR #### [address] [address] CBC w/ Diffon 12-02-2019 Erythrocyte distribution width (RBC) [Ratio] 15.1 % High 11.6-14.8 [facility] Comment on above: Performed By: #### C BC #### [address] [address] Hematocrit (Bld) [Volume fraction] 35.2 % Low 36.0-46.0 [facility] Comment on above: Performed By: #### C BC #### [address] [address] Hemoglobin (Bld) [Mass/Vol] 11.9 g/dL Low 12.0-16.0 [facility] Comment on above: Performed By: #### C BC #### [address] [address] MCH (RBC) [Entitic mass] 28.6 pg Normal 27.0-35.0 [facility] Comment on above: Performed By: #### C BC #### [address] [address] MCHC (RBC) [Mass/Vol] 33.9 % Normal 31.0-37.0 [facility] Comment on above: Performed By: #### C BC #### [address] [address] MCV (RBC) [Entitic vol] 84.4 fL Normal 80.0-100.0 [facility] Comment on above: Performed By: #### C BC #### [address] [address] Platelet mean volume (Bld) [Entitic vol] 11.6 fL High 6.7-10.6 [facility] Comment on above: Performed By: #### C BC #### [address] [address] Platelets (Bld) [#/Vol] 94 x10*3/mcL Low 150-350 [facility] Comment on above: Performed By: #### C BC #### [address] [address] RBC (Bld) [#/Vol] 4.17 x10*6/mcL Normal 3.80-5.20 [facility] Comment on above: Performed By: #### C BC #### [address] [address] WBC (Bld) [#/Vol] 10.0 x10*3/mcL Normal 4.5-11.0 [facility] Comment on above: Performed By: #### C BC #### [address] [address] CMPon 12-02-2019 Albumin [Mass/Vol] 4.3 g/dL Normal 3.2-4.9 [facility] Comment on above: Result Comment: [facility] Laboratory updated the methodology used for albumin testing on 02/06/18. Albumin measurement was performed using a bromcresol purple dye-binding assay. Performed By: #### C OMP #### [address] [address] Albumin/Globulin [Mass ratio] 1.3 {ratio} Normal 1.1-2.2 [facility] Comment on above: Performed By: #### C OMP #### [address] [address] Alk Phos 143 IU/L High 32-91 [facility] Comment on above: Performed By: #### C OMP #### [address] [address] ALT [Catalytic activity/Vol] 74 U/L High 14-54 [facility] Comment on above: Performed By: #### C OMP #### [address] [place] [address] Anion gap [Moles/Vol] 15 mmol/L Normal 7-17 [facility] Comment on above: Performed By: #### C OMP #### [address] [place] [address] AST [Catalytic activity/Vol] 47 U/L High 15-41 [facility] Comment on above: Performed By: #### C OMP #### [address] [address] Bili Total 0.4 mg/dL Normal 0.3-1.2 [facility] Comment on above: Performed By: #### C OMP #### [address] [address] Calcium [Mass/Vol] 9.2 mg/dL Normal 8.5-10.3 [facility] Comment on above: Performed By: #### C OMP #### [address] [place] [address] Chloride [Moles/Vol] 99 mmol/L Normal 98-110 [facility] Comment on above: Performed By: #### C OMP #### [address] [place] [address] CO2 [Moles/Vol] 25 mmol/L Normal 22-32 [facility] Comment on above: Performed By: #### C OMP #### [address] [place] [address] Creatinine [Mass/Vol] 0.83 mg/dL Normal 0.44-1.03 [facility] Comment on above: Performed By: #### C OMP #### [address] [place] [address] Glucose [Mass/Vol] 90 mg/dL Normal 70-99 [facility] Comment on above: Performed By: #### C OMP #### [address] [place] [address] Potassium [Moles/Vol] 3.4 mmol/L Normal 3.4-4.8 [facility] Comment on above: Performed By: #### C OMP #### [address] [address] Protein [Mass/Vol] 7.7 g/dL Normal 6.5-8.1 [facility] Comment on above: Performed By: #### C OMP #### [address] [address] Sodium [Moles/Vol] 136 mmol/L Normal 133-142 [facility] Comment on above: Performed By: #### C OMP #### [address] [address] Urea nitrogen [Mass/Vol] 15 mg/dL Normal 8-26 [facility] Comment on above: Performed By: #### C OMP #### [address] [address] Urea nitrogen/Creatinine [Mass ratio] 18.1 mg/mg Normal 10.0-20.0 [facility] Comment on above: Performed By: #### C OMP #### [address] [address] Diff Autoon 12-02-2019 Baso Absolute 0.0 x10*3/mcL Normal 0.0-0.2 [facility] Comment on above: Performed By: #### . Automated Diff #### [address] [address] Basophils/100 WBC (Bld) 0.4 % Normal 0.0-1.5 [facility] Comment on above: Performed By: #### . Automated Diff #### [address] [address] Eos Absolute 0.4 x10*3/mcL Normal 0.0-0.4 [facility] Comment on above: Performed By: #### . Automated Diff #### [address] [address] Eosinophils/100 WBC (Bld) 3.7 % Normal 0.0-5.4 [facility] Comment on above: Performed By: #### . Automated Diff #### [address] [address] Lymphocytes (Bld) [#/Vol] 3.2 x10*3/mcL Normal 1.0-4.8 [facility] Comment on above: Performed By: #### . Automated Diff #### [address] [address] Lymphocytes/100 WBC (Bld) 31.5 % Normal 27.2-40.8 [facility] Comment on above: Performed By: #### . Automated Diff #### [address] [address] [place] Absolute 0.4 x10*3/mcL Normal 0.1-1.1 [facility] Comment on above: Performed By: #### . Automated Diff #### [address] [address] Monocytes/100 WBC (Bld) 4.2 % Normal 3.7-11.9 [facility] Comment on above: Performed By: #### . Automated Diff #### [address] [address] Neutro Absolute 6.0 x10*3/mcL Normal 1.8-7.7 [facility] Comment on above: Performed By: #### . Automated Diff #### [place] [id number] Neutro Auto 60.2 % Normal 47.2-70.8 [facility] Comment on above: Performed By: #### . Automated Diff #### [address] [address] ED Clinical Summaryon 2019 ED Clinical Summary [address] [id number] ED Clinical Summary Person Information Name: Tory Peoples [facility] Age: 34 Years : 1985 Sex: Female PCP: Marital Status: Single Phone: Race: White Ethnicity: Not or Language: Guinean Visit Reason: Drug withdrawal; Drug withdrawal Acuity: 3 Enc Type: Observation Med Service: X Medication Withdrawal Management Arrival: 12/02/2019 03:53:05 Discharge: LOS: 000 04:16 Checkin: 12/02/2019 03:53:05 Checkout: 12/02/2019 08:09:13 Dispo Type: Place in Observation Address: [address] [place] [address] Provider Notes: Diagnosis: 1:Heroin addiction Problems No [...] range between ( 27.2 and 40.8 ) [place] Auto: 4.2 % -- Normal range between [...] range between ( 36.0 and 46.0 ) [place] Absolute: 0.4 x10 MCH: 28.6 pg -- [...] EDT, Medical/Surgical 5th floor Patient Education Information: [facility] Poison Help line: . [facility] Hotline: [place] Tobacco Quit Line: [place], [place]) [address]: [phone] [place], [place]) [address]: [phone] [facility] [address] [place], [place]: [phone] [facility] ED Note-Physicianon 12-02-19 ED Note-Physician Chief Complaint Patient reports she [...] 04:43 60.2 Lymph Auto 12/02/19 04:43 31.5 [place] Auto 12/02/19 04:43 4.2 Eos Auto 12/02/19 04:43 3.7 Basophil Auto 12/02/19 04:43 0.4 Neutro Absolute 12/02/19 04:43 6.0 Lymph Absolute 12/02/19 04:43 3.2 [place] Absolute 12/02/19 04:43 0.4 Eos Absolute 12/02/19 [...] qualifying data available (MRI) Electronically signed by Nestor Mckeon MD 12/02/19 19:07 EDT Normal [facility] ED Note-Physician seen by protective services social worker, admitted to [facility] program Electronically signed by Nakita YEAGER, Benita Barnettlisa 12/02/19 08:16 EDT Normal [facility] Ethanolon 12-02-2019 Ethanol [Mass/Vol] mg/dL Normal <=9 [facility] Comment on above: Result Comment: To c onvert mg/dL to g/dL, divide result by 1,000. Legal limit of intoxication is 80 mg/dL (0.08 g/dL). Performed By: #### A #### [place] [address] Fentanyl Scn without Confirm , Uron 12-02-2019 Ur Fentanyl Scrn Presumptive Pos Abnormal NEG <1.0 [facility] Comment on above: Result Comment: Urin e sample is presumptive positive for fentanyl. The [employer] SEFRIA Fentanyl Urine Enzyme Immunoassay provides only [...] Performed By: #### . Automated Diff #### [address] [address] Ur Fentanyl Scrn Qnt 3.03 ng/mL High <=0.99 [facility] Comment on above: Performed By: #### . Automated Diff #### [address] [address] HIV1/2 Ab,Ag Scnon 0 HIV-1/2 Ab,Ag 0.21 Normal [facility] Comment on above: Performed By: #### . Automated Diff #### [address] [address] HIV-1/2 Ab,Ag Interp Normal Negative [facility] Comment on above: Result Comment: N egative Negative Performed By: #### . Automated Diff #### [place] [id number] Hep Scrn Chron 12-02-2019 HCV Signal to Cutoff Ratio 36.20 Normal [facility] Comment on above: Performed By: #### . Automated Diff #### [place] [id number] Hep B Surface Antibody Interp Negative Normal [facility] Comment on above: Result Comment: Helga ent is considered to be not immune to infection. Performed By: #### . Automated Diff #### [place] [id number] Hep Bs Ab <5.0 Normal [facility] Comment on above: Performed By: #### . Automated Diff #### [address] [address] Hep Bs Ag Interp Normal Negative [facility] Comment on above: Result Comment: Ne gative Negative Performed By: #### . Automated Diff #### [address] [address] Hep C IgG Interp Abnormal Negative [facility] Comment on above: Result Comment: Re active This specimen is reactive by the [facility] Hepatitis C Antibody Screen. Anti-HCV IgG detected. Patient is presumed to be infected with HCV, state or associated disease not determined. Confirmation of this screening result is required. Per CBC guidelines, reactive antibody screens reflex to Hepatitis C Virus (HCV) RNA Detection and Quantification by RT-PCR. Reactive Performed By: #### . Automated Diff #### [facility] [address] [place] [address] History and Physicalon 12-01 History and Physical [...] Care Directive: unknown Health Care Power of Wired Sweatband Cutter or next of kin: unknown Family Updated: [...] Oral, QID, PRN cloNIDine, 0.1 mg, Oral, x1fh-Fylsvkse Times cloNIDine, 0.2 mg, Oral, l8kr-Eacjxday Times cloNIDine, 0.1 mg, Oral, q4hr, PRN [...] by Nhi Posada 12/02/19 11:58 EDT Normal [facility] RPR Screenon 12-02-2019 RPR Ql Non-Reactive Normal Non-Reactive [facility] Comment on above: Performed By: #### . Automated Diff #### [facility] [address] [place] [address] TSHon 12-02-2019 TSH Qn 3.77 mcIU/mL Normal 0.45-5.33 [facility] Comment on above: Result Comment: Refe rence Ranges for individuals from to 18 years of age were obtained from The Kathryn Cortes Handbook (20 ed) published by [facility]. Reference Ranges for Females: Females, 1st Trimester 0.05 ? 3.7 uIU/mL Females, 2nd Trimester 0.31 ? 4.35 uIU/mL Females, 3rd Trimester 0.41 ? 5.18 uIU/mL Performed By: #### T SH #### [address] [address] UDS Compon 12-02-2019 Creatinine [Mass/Vol] 351.3 mg/dL Normal [facility] Comment on above: Performed By: #### C [id number] #### [address] [address] UA pH 5.0 Normal 4.5 - 7.8 [facility] Comment on above: Performed By: #### C [id number] #### [address] [address] UA Spec Grav 1.029 Normal 1.003-1.035 [facility] Comment on above: Performed By: #### C [id number] #### [address] [address] Ur Amph Scrn Negative Normal NEG = <1000 [facility] Comment on above: Performed By: #### C [id number] #### [address] [address] Ur Reyna Scrn Negative Normal NEG = <200 [facility] Comment on above: Performed By: #### C [id number] #### [address] [address] Ur Benzodia Scrn Negative Normal NEG = <200 [facility] Comment on above: Performed By: #### C [id number] #### [address] [address] Ur Cannab Scrn Negative Normal NEG = <50 [facility] Comment on above: Performed By: #### C [id number] #### [address] [address] Ur Cocaine Scrn Negative Normal NEG = <300 [facility] Comment on above: Performed By: #### C [id number] #### [address] [address] Ur Methadone Scn Negative Normal NEG = <300 [facility] Comment on above: Performed By: #### C [id number] #### [address] [address] Ur Opiate Scrn Positive Abnormal NEG = <300 [facility] Comment on above: Result Comment: This unconfirmed positive screening result is to be used for medical treatment purposes only. Unconfirmed screening results must not be used for non-medical purposes. (e.g. employment testing, legal testing). Performed By: #### C [id number] #### [address] [address] Ur Oxy Screen Negative Normal NEG = <100 [facility] Comment on above: Performed By: #### C [id number] #### [address] [address] Ur Oxy Scrn Qnt 24 ng/mL Normal <=99 [facility] Comment on above: Performed By: #### C [id number] #### [address] [address] Ur PCP Scrn Negative Normal NEG = <25 [facility] Comment on above: Performed By: #### C [id number] #### [address] [address] UDS Comp/Con 12-02-2019 Creatinine [Mass/Vol] 45.1 mg/dL Normal [facility] Comment on above: Performed By: #### . Automated Diff #### [address] [address] UA pH 6.0 Normal 4.5 - 7.8 [facility] Comment on above: Performed By: #### . Automated Diff #### [address] [address] UA Spec Grav 1.004 Normal 1.003-1.035 [facility] Comment on above: Performed By: #### . Automated Diff #### [address] [address] Ur Amph Scrn w/Conf Negative Normal NEG = <1000 [facility] Comment on above: Performed By: #### . Automated Diff #### [address] [address] Ur Reyna Scrn w/Conf Negative Normal NEG = <200 [facility] Comment on above: Performed By: #### . Automated Diff #### [address] [address] Ur Benzodia Scrn w/Conf Negative Normal NEG = <200 [facility] Comment on above: Performed By: #### . Automated Diff #### [address] [address] Ur Cannab Scrn w/Conf Negative Normal NEG = <50 [facility] Comment on above: Performed By: #### . Automated Diff #### [address] [address] Ur Cocaine Scrn w/Conf Negative Normal NEG = <300 [facility] Comment on above: Performed By: #### . Automated Diff #### [address] [address] Ur Methadone Scrn w/Conf Negative Normal NEG = <300 [facility] Comment on above: Performed By: #### . Automated Diff #### [address] [address] Ur Opiate Scrn w/Conf Positive Abnormal NEG = <300 [facility] Comment on above: Result Comment: This unconfirmed positive screening result is to be used for medical treatment purposes only. Confirmation testing will be performed using an alternate method. Performed By: #### . Automated Diff #### [address] [address] Ur Oxy Screen w/Conf Negative Normal NEG = <100 [facility] Comment on above: Performed By: #### . Automated Diff #### [address] [address] Ur Oxy Scrn Qnt w/Confirm 2 ng/mL Normal <=99 [facility] Comment on above: Performed By: #### . Automated Diff #### [facility] [address] [place] [address] Ur PCP Scrn w/Conf Negative Normal NEG = <25 [facility] Comment on above: Performed By: #### . Automated Diff #### [facility] [address] [place] [address] Social History Date Type Detail Facility Start: 08-12-2020 End: 06-14-2023 Sex Assigned At Female [facility] Start: 06-14-2023 Alcohol intake Ex-drinker (finding) [facility] Start: 11-06-2022 [facility] [employer] [facility] Start: 08-12-2020 End: 11-06-2022 Cigarettes smoked current (pack per day) - Reported 0.5 [facility] [employer] [facility] Start: 11-06-2022 Tobacco use and exposure Smokeless tobacco non-user [facility] Start: 1985 Sex Assigned At Not on file M Wenwo Tobacco smoking stat [facility] Unknown if ever smoked [employer] Tobacco smoking status No Smokin g Status Entered [facility] History of tobacco use Cigarette Smoker P [place] How hard is it for y ou to pay for the very basics like food, housing, medical care, and heating Hard [facility] [employer] Adolescent depressio n screening assessment 0 [facility] Clinical Note 06-08-2022 Note Date & Type [...] authenticated by: EMILIANA HAWKINS Date: 2022-06-08 20:45 [facility] Evaluation + Plan note Note Date & Type Note Facility Evaluation + Plan note No data available for this section [facility] Evaluation note Note Date & Type Note Facility Evaluation note Diagnosis Lumbar back pain with radiculopathy affecting left lower extremity documented in this encounter [facility] Evaluation note Note Date & Type Note Facility Evaluation note Diagnosis Lumbar back pain with radiculopathy affecting left lower extremity Vitamin D deficiency documented in this encounter [facility] Discharge instructions Note Date & Type Note Facility Hospital Discharge instructions No data available for this section [facility] Instructions Note Date & Type Note Facility Instructions Not on filedocumented in this en counter [facility] Instructions Note Date & Type Note Facility Instructions Not on filedocumented in this en counter [facility] Instructions Note Date & Type Note Facility Instructions Not on filedocumented in this en counter [facility] Progress note Note Date & Type Note Facility Progress note No data available for this section [facility] Summary Purpose Family History No Family History Records FoundNo Family History Records FoundNo Family History Records FoundNo Family History Records FoundNo Family History Records Found Advance Directives No Advanced Directives Records FoundNo Advanced Directives Records FoundNo Advanced Directives Records FoundNo Advanced Directives Records FoundNo Advanced Directives Records Found Hospital Course Note Admission Information Tara soni: Tory Peoples : 1985 Admission date: 12/02/2019 Discharge date: 12/03/2019 CODE STATUS: Full code PCP: unknown 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 Heroin addiction 2. Tobacco user [...] days. Patient is to follow-up tomorrow with [facility]'s case loader operator and has further follow-up appointments to schedule her outpatient Vivitrol injection. All questions have been answered patient is being (more content not included)... Additional Source Comments INFORMATION SOURCE (unrecogn ized section and content) DATE CREATED AUTHOR 01/27/2020 [facility] DATE CREATED AUTHOR AUTHOR'S ORGANIZ ATION 11/02/[address] [facility] DATE CREATED AUTHOR AUTHOR'S ORGANIZ ATION 10/03/2022 [facility] DATE CREATED AUTHOR AUTHOR'S ORGANIZ ATION 02/22/2023 [facility] DATE CREATED AUTHOR AUTHOR'S ORGANIZ ATION 11/08/2023 [facility] EPIC Patient Care team informatio n (unrecognized section and content) Windshield Technician Relationship Specialty Start Date End Date Rony Cox APRN-CNP [address] [place] [address] PCP - General Family Medicine 11/03/22 Windshield Technician Relationship Specialty Start Date End Date Rony Cox APRN-CNP [address] [place] [address] PCP - General Family Medicine 11/03/22 Windshield Technician Relationship Specialty Start Date End Date Rony Cox APRN-CERAMIC COATER [address] [place] [id number] PCP - General Family Medicine 11/03/22 Reason [...] BE BASED ON THE PRIMARY CLINICAL RECORDS. [employer] [facility]. provides no warranty or guarantee of the accuracy or completeness of information in this document.
== END 2023-11-23 15:58 | disposition home or self-care (01) ==
LOC: US 15:57
PROVIDERS: PCP Nurse Practitioner; Visit Provider Physician Assistant
DX: N92.0 Excessive and frequent menstruation with regular cycle (principal); N83.291 Other ovarian cyst, right side
CPT/HCPCS: 76830; 76856

== ENCOUNTER 2024-05-02 12:29 | Emergency (ER) | payer MEDICAID, SELFPAY ==
[2024-05-02 12:33] VITALS: BP 190/100; PULSE 129; TEMP 37.4; O2SAT 95; BMI 54.8
--- OUTSIDE RECORDS SUMMARY | 2024-05-02 12:55 | XMS_ITS | CCD ---
Author Organization [facility] Care Team Providers Care Seafood Manager Name Role Phone Gerson Sheppard Admitting Unavailable Gerson Sheppard Attending Unavailable Unavailable Primary Care Provider Unavailabl e Unavailable Primary Care Provider Unavailabl e JACKIE, DIEGO Referring Unavailable JACKIE, DIEGO Referring Unavailable JACKIE, DIEGO Referring Unavailable JACKIE, DIEGO Referring Unavailable JACKIE, DIEGO Referring Unavailable REQUEST, NONE LISTED Primary Care Unavaila ble ASHLIE ., JOCE Admitting Unavailable ASHLIE ., JOCE Attending Unavailable GRECHRUTH ., MICHELLE HURTADO Consulting Unavailabl e REQUEST, NONE LISTED Primary Care Unavaila ANTONIA Garcia Admitting Unavailable ANTONIA DREW Attending Unavailable REQUEST, NONE LISTED Primary Care Unavaila ble ASHLIE ., JOCE Admitting Unavailable ASHLIE ., JOCE Attending Unavailable GRECHNY ., MICHELLE HURTADO Consulting Unavailabl e EMILIANA HAWKINS Consulting Unavailable REQUEST, NONE LISTED Primary Care Unavaila ble MARKER ., DR SPRAGUE Admitting Unavailable MARKER ., DR SPRAGUE Attending Unavailable MARKER ., DR SPRAGUE Consulting Unavailable SHARON MC Consulting Unavailable KARASIK ., DR GARCIA Admitting Unavailabl e KARMADHU ., DR GARCIA Attending Unavailabl e REQUEST, NONE LISTED Primary Care Unavaila ble KARASILui ., DR GARCIA Consulting Unavailabl e RONY COX Primary Care Physician RONY COX Primary Care Unavailable Li Deutsch Attending Unavailable Rony Villalobos Primary Care Provid er MACHO BUTLER Attending Unavailable HARSH CHAVEZ Attending Unavailable Allergies Allergy Classification Reported Allergen(s) Allergy Type Date of Onset Reaction(s) Facility (1 source) Penicillin Drug Allergy [facility] Repository (3 sources) Penicillins Propensity to adverse reactions to drug 7 [facility] Medications Current Medications Medication Drug Class(es) Dates [...] sources) Start: 06-14-2023 take 1 capsule by [facility] twice daily Fish OiL 300-1,000 mg [...] 09-12-2023 Chronic Other aftercare (1 source) Other intermediate (current) drug therapy; Translations: [OTH LOOP TACKER CURRENT DRUG THERAPY] Onset: 07-13-2022 Episodic Other [...] Facil ity Lab Reportson 02-21-2023 Lab Reports [id number]:127 [facility] RAD - CT Reporton 02-21-2023 RAD - CT Report [id number] #1.00CD:127 [facility] Physician Referralon 023 Physician Referral [id number] #1.00CD:127 [facility] PAP ACOG PANEL 2: 30 to 65on 09-28-2022 . . Normal [facility] Comment on above: Result Comment: Perf ormed at: WB Performed By: #### [id number] #### [facility] [address] [address] [address] Oneyda Rodriguez Age Gdln ACOG Testing 30-65 Normal [facility] Comment on above: Performed By: #### [id number] #### [facility] [address] [address] [address] Oneyda Rodriguez DIAGNOSIS: Comment Normal [facility] Comment on above: Result Comment: NEGA TIVE FOR INTRAEPITHELIAL LESION OR MALIGNANCY. REACTIVE CELLULAR CHANGES AND/OR REPAIR ARE PRESENT. Performed at: WB Performed By: #### [id number] #### [facility] [address] [address] [address] Oneyda Rodriguez Electronically signed by: Comment Normal [facility] Comment on above: Result Comment: Gila Lopez MD, Pathologist Performed at: WB Performed By: #### [id number] #### [facility] [address] [place] [address] Dr. Oneyda Rodriguez HPV Aptima Negative Normal Negative [facility] Comment on above: Result Comment: This nucleic acid amplification test detects fourteen high-risk HPV types (16,18,31,33,35,39,45,51,52,56,58,59,66,68) without differentiation. Performed at: =G Performed By: #### [id number] #### [facility] [address] [place] [address] Dr. Oneyda Rodriguez HPV Genotype Reflex Comment Normal [facility] Comment on above: Result Comment: Crit eria not met, HPV Genotype not performed. Performed at: WB Performed By: #### [id number] #### [facility] [address] [place] [address] Dr. Oneyda Rodriguez Methodology: Comment Normal [facility] Comment on above: Result Comment: This liquid based ThinPrep(R) pap test was screened with the use of an image guided system. Performed at: WB Performed By: #### [id number] #### [facility] [address] [place] [address] Dr. Oneyda Rodriguez Note: Comment Normal [facility] Comment on above: Result Comment: The Pap smear is a screening test designed to aid in the detection of premalignant and malignant conditions of the uterine cervix. It is not a diagnostic procedure and should not be used as the sole means of detecting cervical cancer. Both false-positive and false-negative reports do occur. . Performed at: WB Performed By: #### [id number] #### [facility] [address] [place] [address] Dr. Oneyda Rodriguez Performed by: Comment Normal [facility] Comment on above: Result Comment: Katie Elliott, Supervisory Superintendent Pressure (ASCP) Performed at: WB Performed By: #### [id number] #### [facility] [address] [place] [address] Dr. Oneyda Rodriguez Specimen adequacy: Comment Normal [facility] Comment on above: Result Comment: Sati sfactory for evaluation. Endocervical and/or squamous metaplastic cells (endocervical component) are present. Performed at: WB Performed By: #### [id number] #### [facility] [address] [place] [address] Dr. Oneyda Rodriguez CULTURE URINEon 06-11-2022 CULTURE [...] F Trimethoprim/Sulfame thoxazole <=20 S F Normal [facility] Comment on above: Performed By: #### U RCX #### [facility] [address] [place] [address] Dr. Oneyda Rodriguez CBC AUTO DIFFon 06-08-2022 BASO # 0.1 103/ul Normal 0.0-0.1 [facility] Comment on above: Performed By: #### C BC #### [facility] [address] [address] [address] Oneyda Rodriguez Basophils/100 WBC (Bld) 0.5 % Normal 0.2-2.0 [facility] Comment on above: Performed By: #### C BC #### [facility] [address] [address] [address] Oneyda Rodriguez EO # 0.2 103/ul Normal 0.0-0.7 [facility] Comment on above: Performed By: #### C BC #### [facility] [address] [address] [address] Oneyda Rodriguez Eosinophils/100 WBC (Bld) 1.6 % Normal 0.9-7.0 [facility] Comment on above: Performed By: #### C BC #### [facility] [address] [address] [address] Oneyda Rodriguez Erythrocyte distribution width (RBC) [Ratio] 13.4 % Normal 11.0-15.0 [facility] Comment on above: Performed By: #### C BC #### [facility] [address] [address] [address] Oneyda Rodriguez Hematocrit (Bld) [Volume fraction] 35.4 % Critically low 36.0-48.0 [facility] Comment on above: Performed By: #### C BC #### [facility] [address] [address] [address] Oneyda Rodriguez Hemoglobin (Bld) [Mass/Vol] 12.2 g/dL Normal 12.0-16.0 [facility] Comment on above: Performed By: #### C BC #### [facility] [address] [address] [address] Oneyda Rodriguez IG # 0.05 10e3/ul Critically high 0.00-0.03 [facility] Comment on above: Performed By: #### C BC #### [facility] [address] [address] [address] Oneyda Rodriguez IG % 0.4 % Normal 0.0-0.5 [facility] Comment on above: Performed By: #### C BC #### [facility] [address] [place] [address] Dr. Oneyda Rodriguez LYMPH # 2.2 103/ul Normal 1.2-3.8 [facility] Comment on above: Performed By: #### C BC #### [facility] [address] [place] [address] Dr. Oneyda Rodriguez Lymphocytes/100 WBC (Bld) 16.6 % Critically low 20.5-60.0 [facility] Comment on above: Performed By: #### C BC #### [facility] [address] [place] [address] Dr. Oneyda Rodriguez MANUAL DIFF REQ NO Normal [facility] Comment on above: Performed By: #### C BC #### [facility] [address] [place] [address] Dr. Oneyda Rodriguez MCH (RBC) [Entitic mass] 29.7 pg Normal 26.7-34.0 [facility] Comment on above: Performed By: #### C BC #### [facility] [address] [place] [address] Dr. Oneyda Rodriguez MCHC (RBC) [Mass/Vol] 34.5 g/dL Normal 29.9-35.2 [facility] Comment on above: Performed By: #### C BC #### [facility] [address] [place] [address] Dr. Oneyda Rodriguez MCV (RBC) [Entitic vol] 86.1 fL Normal 81.0-99.0 [facility] Comment on above: Performed By: #### C BC #### [facility] [address] [place] [address] Dr. Oneyda Rodriguez MONO # 0.6 103/ul Normal 0.3-0.8 [facility] Comment on above: Performed By: #### C BC #### [facility] [address] [place] [address] Dr. Oneyda Rodriguez Monocytes/100 WBC (Bld) 4.2 % Normal 1.7-12.0 [facility] Comment on above: Performed By: #### C BC #### [facility] [address] [place] [address] Dr. Oneyda Rodriguez NEUT # 10.3 103/ul Critically high 1.4-6.5 [facility] Comment on above: Performed By: #### C BC #### [facility] [address] [place] [address] Dr. Oneyda Rodriguez Neutrophils/100 WBC (Bld) 76.7 % Critically high 43.0-75.0 [facility] Comment on above: Performed By: #### C BC #### [facility] [address] [place] [address] Dr. Oneyda Rodriguez Platelet mean volume (Bld) [Entitic vol] 11.1 fL Normal 9.5-13.5 [facility] Comment on above: Performed By: #### C BC #### [facility] [address] [place] [address] Dr. Oneyda Rodriguez PLT 184 103/ul Normal 150-450 [facility] Comment on above: Performed By: #### C BC #### [facility] [address] [place] [address] Dr. Oneyda Rodriguez RBC 4.11 106/ul Critically low 4.20-5.40 [facility] Comment on above: Performed By: #### C BC #### [facility] [address] [place] [address] Dr. Oneyda Rodriguez WBC 13.4 103/ul Critically high 4.0-11.0 [facility] Comment on above: Performed By: #### C BC #### [facility] [address] [place] [address] Dr. Oneyda Rodriguez ER URINE PROFILEon 2 Bilirubin Ql (U) Negative Normal NEGATIVE [facility] Comment on above: Performed By: #### BILL LI #### [facility] [address] [place] [address] Dr. Oneyda Rodriguez Clarity (U) CLEAR Normal CLEAR [facility] Comment on above: Performed By: #### HENRI LIRO #### [facility] [address] [place], [place] [id number] Dr. Oneyda Rodriguez Color (U) LT. YELLOW Normal YELLOW [facility] Comment on above: Performed By: #### KIKI LIICRO #### [facility] [address] [place] [address] Dr. Oneyda FREDERICK A micrscopic examination will be performed if indicated. Normal [facility] Comment on above: Performed By: #### Lamonte TRAORE UMICRO #### [facility] [address] [place] [address] Dr. Oneyda Rodriguez Glucose Ql (U) Negative Normal NEGATIVE [facility] Comment on above: Performed By: #### Lamonte TRAORE UMICRO #### [facility] [address] [place] [address] Dr. Oneyda Rodriguez Hemoglobin Ql (U) SMALL Abnormal NEGATIVE [facility] Comment on above: Performed By: #### Lamonte TRAORE UMICRO #### [facility] [address] [place] [address] Dr. Oneyda Rodriguez Ketones Ql (U) Negative Normal NEGATIVE [facility] Comment on above: Performed By: #### Lamonte TRAORE UMICRO #### [facility] [address] [place] [address] Dr. Oneyda Rodriguez LEUKOCYTES SMALL Abnormal NEGATIVE [facility] Comment on above: Performed By: #### Lamonte TRAORE UMICRO #### [facility] [address] [place] [address] Dr. Oneyda Rodriguez Nitrite Ql (U) Positive Abnormal NEGATIVE [facility] Comment on above: Performed By: #### Lamonte TRAORE UMICRO #### [facility] [address] [place] [address] Dr. Oneyda Rodriguez pH (U) 6.0 [pH] Normal 5-9 [facility] Comment on above: Performed By: #### Lamonte TRAORE UMICRO #### [facility] [address] [place] [address] Dr. Oneyda Rodriguez SPEC GRAVITY 1.025 Normal 1.005-<=1.025 [facility] Comment on above: Performed By: #### Lamonte TRAORE, UMICRO #### [facility] [address] [place] [address] Dr. Oneyda Rodriguez UA PROTEIN TRACE Normal NEGATIVE/ TRACE [facility] Comment on above: Performed By: #### E LEÓN, UMICRO #### [facility] [address] [place] [address] Dr. Oneyda Rodriguez UR MICRO IND INDICATED Normal [facility] Comment on above: Performed By: #### Lamonte TRAORE, UMICRO #### [facility] [address] [place] [address] Dr. Oneyda Rodriguez Urobilinogen Qn (U) 0.2 {Saul'U}/dL Normal 0.2 - 1. 0 [facility] Comment on above: Performed By: #### Lamonte TRAORE, UMICRO #### [facility] [address] [place] [address] Dr. Oneyda Rodriguez PREG HCG QUALon 06-08-2022 , QUAL Negative Normal NEGATIVE [facility] Comment on above: Performed By: #### Lamonte TRAORE, UMICRO #### [facility] [address] [place] [address] Dr. Oneyda Rodriguez PROF 14(COMP METB)on 022 Albumin [Mass/Vol] 3.6 g/dL Normal 3.4-5.0 [facility] Comment on above: Performed By: #### C MP #### [facility] [address] [place] [address] Dr. Oneyda Rodriguez Albumin/Globulin [Mass ratio] 1.1 {ratio} Normal [facility] Comment on above: Performed By: #### C MP #### [facility] [address] [place] [address] Dr. Oneyda Rodriguez ALP [Catalytic activity/Vol] 115 U/L Normal 46-116 [facility] Comment on above: Performed By: #### C MP #### [facility] [address] [place] [address] Dr. Oneyda Rodriguez ALT [Catalytic activity/Vol] 52 U/L Normal 14-59 [facility] Comment on above: Performed By: #### C MP #### [facility] [address] [address] [address] Oneyda Rodriguez Anion gap [Moles/Vol] 8.2 mmol/L Normal [facility] Comment on above: Performed By: #### C MP #### [facility] [address] [address] [address] Oneyda Rodriguez AST [Catalytic activity/Vol] 21 U/L Normal 15-37 [facility] Comment on above: Performed By: #### C MP #### [facility] [address] [address] [address] Oneyda Rodriguez Bilirubin [Mass/Vol] 0.1 mg/dL Critically low 0.2-1.0 [facility] Comment on above: Performed By: #### C MP #### [facility] [address] [place] [address] Dr. Oneyda Rodriguez Calcium [Mass/Vol] 8.4 mg/dL Critically low 8.5-10.1 [facility] Comment on above: Performed By: #### C MP #### [facility] [address] [address] [address] Oneyda oRdriguez Chloride [Moles/Vol] 105 mmol/L Normal 98-107 [facility] Comment on above: Performed By: #### C MP #### [facility] [address] [place] [address] Dr. Oneyda Rodriguez CO2 [Moles/Vol] 28.3 mmol/L Normal 21.0-32.0 [facility] Comment on above: Performed By: #### C MP #### [facility] [address] [address] [address] Oneyda Rodriguez Creatinine [Mass/Vol] 0.84 mg/dL Normal 0.55-1.02 [facility] Comment on above: Performed By: #### C MP #### [facility] [address] [address] [address] Oneyda Rodriguez EGFR-AF HONDURAN >60 Normal >=60 [facility] Comment on above: Performed By: #### C MP #### [facility] [address] [place] [address] Dr. Oneyda Rodriguez EGFR-NON AF HONDURAN >60 Normal >=60 [facility] Comment on above: Performed By: #### C MP #### [facility] [address] [place] [address] Dr. Oneyda Rodriguez Globulin (S) [Mass/Vol] 3.3 g/dL Normal [facility] Comment on above: Performed By: #### C MP #### [facility] [address] [address] [address] Oneyda Rodriguez Glucose [Mass/Vol] 85 mg/dL Normal 74-106 [facility] Comment on above: Performed By: #### C MP #### [facility] [address] [place] [address] Dr. Oneyda Rodriguez Potassium [Moles/Vol] 3.5 mmol/L Normal 3.5-5.1 [facility] Comment on above: Performed By: #### C MP #### [facility] [address] [place] [address] Dr. Oneyda Rodriguez Protein [Mass/Vol] 6.9 g/dL Normal 6.4-8.2 [facility] Comment on above: Performed By: #### C MP #### [facility] [address] [place] [address] Dr. Oneyda Rodriguez Sodium [Moles/Vol] 138 mmol/L Normal 136-145 [facility] Comment on above: Performed By: #### C MP #### [facility] [address] [place] [address] Dr. Oneyda Rodriguez Urea nitrogen [Mass/Vol] 14.0 mg/dL Normal 7.0-18.0 [facility] Comment on above: Performed By: #### C MP #### [facility] [address] [place] [address] Dr. Oneyda Rodriguez Urea nitrogen/Creatinine [Mass ratio] 16.7 mg/mg Normal [facility] Comment on above: Performed By: #### C MP #### [facility] [address] [place] [address] Dr. Oneyda Rodriguez URINE MICROSCOPIC ONLYon BACTERIA TRACE Abnormal NONE SEEN [facility] Comment on above: Performed By: #### E LEÓN UMICRO #### [facility] [address] [place] [address] Dr. Oneyda Rodriguez Bacteria identified Cx Nom (U) INDICATED Normal [facility] Comment on above: Performed By: #### E RUR, UMICRO #### [facility] [address] [place] [address] Dr. Oneyda Rodriguez CAST NONE SEEN Normal NONE SEEN [facility] Comment on above: Performed By: #### E RUR, UMICRO #### [facility] [address] [place] [address] Dr. Oneyda Rodriguez Crystals LM Nom (Urine sed) NONE SEEN Normal NONE SEEN [facility] Comment on above: Performed By: #### E RUR, UMICRO #### [facility] [address] [place] [address] Dr. Oneyda Rodriguez Epithelial cells LM Ql (Urine sed) RARE Normal NONE SEEN /RARE [facility] Comment on above: Performed By: #### Lamonte TRAORE UMICRO #### [facility] [address] [place] [address] Dr. Oneyda Rodriguez MUCOUS NONE SEEN Normal NONE SEEN [facility] Comment on above: Performed By: #### E LÓEN UMICRO #### [facility] [address] [place] [address] Dr. Oneyda Rodriguez RBC NONE SEEN Abnormal 0-2 [facility] Comment on above: Performed By: #### E LEÓN, UMICRO #### [facility] [address] [place] [address] Dr. Oneyda Rodriguez WBC 2-5 Abnormal NONE SEEN [facility] Comment on above: Performed By: #### E LEÓN UMICRO #### [facility] [address] [place] [address] Dr. Oneyda Rodriguez CBC AUTO DIFFon 11-23-2021 BASO # 0.1 103/ul Normal 0.0-0.1 [facility] Comment on above: Performed By: #### C BC #### [facility] [address] [place] [address] Dr. Oneyda Rodriguez Basophils/100 WBC (Bld) 0.5 % Normal 0.2-2.0 [facility] Comment on above: Performed By: #### C BC #### [facility] [address] [place] [address] Dr. Oneyda Rodriguez EO # 0.3 103/ul Normal 0.0-0.7 [facility] Comment on above: Performed By: #### C BC #### [facility] [address] [place] [address] Dr. Oneyda Rodriguez Eosinophils/100 WBC (Bld) 2.4 % Normal 0.9-7.0 [facility] Comment on above: Performed By: #### C BC #### [facility] [address] [place] [address] Dr. Oneyda Rodriguez Erythrocyte distribution width (RBC) [Ratio] 14.8 % Normal 11.0-15.0 [facility] Comment on above: Performed By: #### C BC #### [facility] [address] [place] [address] Dr. Oneyda Rodriguez Hematocrit (Bld) [Volume fraction] 36.0 % Normal 36.0-48.0 [facility] Comment on above: Performed By: #### C BC #### [facility] [address] [place] [address] Dr. Oneyda Rodriguez Hemoglobin (Bld) [Mass/Vol] 11.8 g/dL Critically low 12.0-16.0 [facility] Comment on above: Performed By: #### C BC #### [facility] [address] [place] [address] Dr. Oneyda Rodriguez IG # 0.05 10e3/ul Critically high 0.00-0.03 [facility] Comment on above: Performed By: #### C BC #### [facility] [address] [place] [address] Dr. Oneyda Rodriguez IG % 0.4 % Normal 0.0-0.5 [facility] Comment on above: Performed By: #### C BC #### [facility] [address] [place] [address] Dr. Oneyda Rodriguez LYMPH # 3.2 103/ul Normal 1.2-3.8 [facility] Comment on above: Performed By: #### C BC #### [facility] [address] [place] [address] Dr. Oneyda Rodriguez Lymphocytes/100 WBC (Bld) 24.3 % Normal 20.5-60.0 [facility] Comment on above: Performed By: #### C BC #### [facility] [address] [place] [address] Dr. Oneyda Rodriguez MANUAL DIFF REQ NO Normal [facility] Comment on above: Performed By: #### C BC #### [facility] [address] [place] [address] Dr. Oneyda Rodriguez MCH (RBC) [Entitic mass] 29.2 pg Normal 26.7-34.0 [facility] Comment on above: Performed By: #### C BC #### [facility] [address] [place] [address] Dr. Oneyda Rodriguez MCHC (RBC) [Mass/Vol] 32.8 g/dL Normal 29.9-35.2 [facility] Comment on above: Performed By: #### C BC #### [facility] [address] [place] [address] Dr. Oneyda Rodriguez MCV (RBC) [Entitic vol] 89.1 fL Normal 81.0-99.0 [facility] Comment on above: Performed By: #### C BC #### [facility] [address] [place] [address] Dr. Oneyda Rodriguez MONO # 0.6 103/ul Normal 0.3-0.8 [facility] Comment on above: Performed By: #### C BC #### [facility] [address] [place] [address] Dr. Oneyda Rodriguez Monocytes/100 WBC (Bld) 4.9 % Normal 1.7-12.0 [facility] Comment on above: Performed By: #### C BC #### [facility] [address] [address] [address] Oneyda Rodriguez NEUT # 8.8 103/ul Critically high 1.4-6.5 [facility] Comment on above: Performed By: #### C BC #### [facility] [address] [address] [address] Oneyda Rodriguez Neutrophils/100 WBC (Bld) 67.5 % Normal 43.0-75.0 [facility] Comment on above: Performed By: #### C BC #### [facility] [address] [address] [address] Oneyda Rodriguez Platelet mean volume (Bld) [Entitic vol] 12.5 fL Normal 9.5-13.5 [facility] Comment on above: Performed By: #### C BC #### [facility] [address] [address] [address] Oneyda Rodriguez PLT 213 103/ul Normal 150-450 [facility] Comment on above: Performed By: #### C BC #### [facility] [address] [address] [address] Oneyda Rodriguez RBC 4.04 106/ul Critically low 4.20-5.40 [facility] Comment on above: Performed By: #### C BC #### [facility] [address] [address] [address] Oneyda Rodriguez WBC 13.1 103/ul Critically high 4.0-11.0 [facility] Comment on above: Performed By: #### C BC #### [facility] [address] [address] [address] Oneyda Rodriguez CRPon 11-23-2021 CRP [Mass/Vol] mg/L Normal <=1.0 [facility] Comment on above: Performed By: #### BILL LI #### [facility] [address] [place] [address] HEAD WO CONon [...] by: SHARON MC Date: 2021-11-23 06:36 Normal [facility] LACTATE/LACTIC ACIDon 2021 Lactate [Moles/Vol] 0.7 mmol/L Normal 0.4-1.9 [facility] Comment on above: Performed By: #### L ACT #### [facility] [address] [place] [address] Dr. Oneyda Rodriguez PROF 14(COMP METB)on 022 Albumin [Mass/Vol] 3.9 g/dL Normal 3.4-5.0 [facility] Comment on above: Performed By: #### BILL LI #### [facility] [address] [place] [address] Dr. Oneyda Rodriguez Albumin/Globulin [Mass ratio] 1.1 {ratio} Normal [facility] Comment on above: Performed By: #### HENRI LIRO #### [facility] [address] [place] [address] Dr. Oneyda Rodriguez ALP [Catalytic activity/Vol] 107 U/L Normal 46-116 [facility] Comment on above: Performed By: #### HENRI LIRO #### [facility] [address] [place] [address] Dr. Oneyda Rodriguez ALT [Catalytic activity/Vol] 62 U/L Critically high 14-59 [facility] Comment on above: Performed By: #### HENRI LIRO #### [facility] [address] [place] [address] Dr. Oneyda Rodriguez Anion gap [Moles/Vol] 12.2 mmol/L Normal Th [facility] Comment on above: Performed By: #### BILL LI #### [facility] [address] [place] [address] Dr. Oneyda Rodriguez AST [Catalytic activity/Vol] 26 U/L Normal 15-37 [facility] Comment on above: Performed By: #### BILL LI #### [facility] [address] [place] [address] Dr. Oneyda Rodriguez Bilirubin [Mass/Vol] 0.3 mg/dL Normal 0.2-1.0 [facility] Comment on above: Performed By: #### BILL LI #### [facility] [address] [place] [address] Dr. Oneyda Rodriguez Calcium [Mass/Vol] 8.8 mg/dL Normal 8.5-10.1 [facility] Comment on above: Performed By: #### BILL LI #### [facility] [address] [place] [address] Dr. Oneyda Rodriguez Chloride [Moles/Vol] 104 mmol/L Normal 98-107 [facility] Comment on above: Performed By: #### BILL LI #### [facility] [address] [place] [address] Dr. Oneyda Rodriguez CO2 [Moles/Vol] 28.9 mmol/L Normal 21.0-32.0 [facility] Comment on above: Performed By: #### BILL LI #### [facility] [address] [place] [address] Dr. Oneyda Rodriguez Creatinine [Mass/Vol] 0.73 mg/dL Normal 0.55-1.02 [facility] Comment on above: Performed By: #### BILL LI #### [facility] [address] [place] [address] Dr. Oneyda Rodriguez EGFR-AF HONDURAN >60 Normal >=60 [facility] Comment on above: Performed By: #### BILL LI #### [facility] [address] [place] [address] Dr. Oneyda Rodriguez EGFR-NON AF HONDURAN >60 Normal >=60 [facility] Comment on above: Performed By: #### BILL LI #### [facility] [address] [place] [address] Dr. Oneyda Rodriguez Globulin (S) [Mass/Vol] 3.4 g/dL Normal [facility] Comment on above: Performed By: #### HENRI LIRO #### [facility] [address] [place] [address] Dr. Oneyda Rodriguez Glucose [Mass/Vol] 105 mg/dL Normal 74-106 [facility] Comment on above: Performed By: #### HENRI LIRO #### [facility] [address] [place] [address] Dr. Oneyda Rodriguez Potassium [Moles/Vol] 3.1 mmol/L Critically low 3.5-5.1 [facility] Comment on above: Performed By: #### HENRI LIRO #### [facility] [address] [place] [address] Dr. Oneyda Rodriguez Protein [Mass/Vol] 7.3 g/dL Normal 6.4-8.2 [facility] Comment on above: Performed By: #### HENRI LIRO #### [facility] [address] [place] [address] Dr. Oneyda Rodriguez Sodium [Moles/Vol] 142 mmol/L Normal 136-145 [facility] Comment on above: Performed By: #### HENRI LIRO #### [facility] [address] [place] [address] Dr. Oneyda Rodriguez Urea nitrogen [Mass/Vol] 12.0 mg/dL Normal 7.0-18.0 [facility] Comment on above: Performed By: #### Lamonte TRAORE UMHANGRO #### [facility] [address] [place] [address] Dr. Oneyda Rodriguez Urea nitrogen/Creatinine [Mass ratio] 16.4 mg/mg Normal [facility] Comment on above: Performed By: #### E LEÓN, UMHANGRO #### [facility] [address] [place], [place] [address] Dr. Oneyda Rodriguez TROPONIN, HIGH SENSITIVITYon 11-23-2021 HSTROP 4.8 pg/mL Normal 4.0-51.3 [facility] Comment on above: Result Comment: CUT- OFF POINTS HAVE BEEN ESTABLISHED BASED ON THE FOURTH UNIVERSAL DEFINITIONS OF MYOCARDIAL INFARCTION. THE UPPER REFERENCE LIMIT (URL) OF TROPONIN, DEFINED THE 99TH PERCENTILE OF cTnI DISTRIBUTION IN A REFERENCE POPULATION, HAS BEEN CONFIRMED THE DECISION THRESHOLD FOR CO DIAGNOSIS. Performed By: #### Lamonte TRAORE UMICRO #### [facility] [address] [address] [address] Oneyda Rodriguez HCV RNA,Quant,PCRon 11-02-19 21 HCV RNA,Quant,PCR Specimen Description .PLASMA Special Requests [...] Health Department Report Status FINAL 11/01/2020 Normal [facility] Comment on above: Performed By: #### H CVQ #### [facility] [address] [place] [address] [employer] Operator: Valdo Diaz MD [facility] [address] [place] [address] [employer] Operator: Mateo Mir MD CBCon 10-27-2020 Erythrocyte distribution width (RBC) [Ratio] 14.4 % Normal 11.8-14.4 [facility] Comment on above: Performed By: #### I PF, CBC, CP, HCG #### [address] [place], [place] [id number] [employer]: Mateo Mir MD #### HIVCMB, PHEP #### [address] [id number] [employer] Operator: Valdo Diaz MD Hematocrit (Bld) [Volume fraction] 38.8 % Normal 36.3-47.1 [facility] Comment on above: Performed By: #### I PF, CBC, CP, HCG #### [address] [place], [place] [id number] [employer]: Mateo Mir MD #### HIVCMB, PHEP #### [address] [id number] [employer] Operator: Valdo Diaz MD Hemoglobin (Bld) [Mass/Vol] 12.4 g/dL Normal 11.9-15.1 [facility] Comment on above: Performed By: #### I PF, CBC, CP, HCG #### [address] [place] [address] [employer] Operator: Mateo Mir MD #### HIVCMB, PHEP #### [address] [id number] [employer] Operator: Valdo Diaz MD MCH (RBC) [Entitic mass] 28.0 pg Normal 25.2-33.5 [facility] Comment on above: Performed By: #### I PF, CBC, CP, HCG #### [address] [place] [address] [employer] Operator: Mateo Mir MD #### HIVCMB, PHEP #### [address] [place], [place] [id number] [employer] Operator: Valdo Diaz MD MCHC (RBC) [Mass/Vol] 32.0 g/dL Normal 28.4-34.8 [facility] Comment on above: Performed By: #### I PF, CBC, CP, HCG #### [facility] [address] [place] [address] [place] [address] [employer]: Mateo Mir MD #### HIVCMB, PHEP #### [address] [id number] [employer] Operator: Valdo Diaz MD MCV (RBC) [Entitic vol] 87.6 fL Normal 82.6-102.9 [facility] Comment on above: Performed By: #### I PF, CBC, CP, HCG #### [address] [place] [address] [employer] Operator: Mateo Mir MD #### HIVCMShavon, PHEP #### [place] [address] [employer] Operator: Valdo Diaz MD NRBC Automated 0.0 per 100 WBC Normal 0.0 [facility] Comment on above: Performed By: #### I PF, CBC, CP, HCG #### [address] [place] [address] [employer] Operator: Mateo Mir MD #### HIVCMB, PHEP #### [place] [address] [employer] Operator: Valdo Diaz MD Platelet Count See Reflexed IPF Result Normal 138-453 [facility] Comment on above: Performed By: #### I PF, CBC, CP, HCG #### [address] [place] [address] [employer] Operator: Mateo Mir MD #### HIVCMB, PHEP #### [address] [address] [employer] Operator: Valdo Diaz MD RBC (Bld) [#/Vol] 4.43 10*6/uL Normal 3.95-5.11 [facility] Comment on above: Performed By: #### I PF, CBC, CP, HCG #### [address] [place] [address] [employer] Operator: Mateo Mir MD #### HIVCMB, PHEP #### [address] [id number] [employer] Operator: Valdo Diaz MD WBC (Bld) [#/Vol] 8.2 10*3/uL Normal 3.5-11.3 [facility] Comment on above: Performed By: #### I PF, CBC, CP, HCG #### [address] [place] [address] [employer] Operator: Mateo Mir MD #### HIVCMB, PHEP #### [address] [id number] [employer] Operator: Valdo Diaz MD MPV NOT REPORTED Normal 8.1-13.5 [facility] Comment on above: Performed By: #### I PF, CBC, CP, HCG #### [address] [place] [address] [employer] Operator: Mateo Mir MD #### HIVCMB, PHEP #### [address] [id number] [employer] Operator: Valdo Diaz MD CBCOrdered By: Diego Hernandez on 10-27-2020 Hematocrit (Bld) [Volume fraction] 38.8 % 36.3 - 47.1 % [facility] [employer] Phone: Hemoglobin.gastrointe stinal spec 1 Ql (Stl) 12.4 g/dL 11.9 - 15.1 g/dL [facility] Phone: MCH (RBC) [Entitic mass] 28.0 pg 25.2 - 33.5 pg [facility] Work Phone: MCHC (RBC) [Mass/Vol] 32.0 g/dL 28.4 - 34.8 g/dL [facility] Phone: MCV (RBC) [Entitic vol] 87.6 fL 82.6 - 102.9 fL [employer] Phone: NRBC Automated 0.0 0.0 per 100 WBC [facility] Phone: Platelet distribution width (Bld) [Ratio] 14.4 % 11.8 - 14.4 % [employer] Phone: Platelet mean volume (Bld) [Entitic vol] NOT REPORTED 8.1 - 13.5 fL [employer] Phone: Platelets (Bld) [#/Vol] See Reflexed IPF Result [employer] Phone: RBC (Bld) [#/Vol] 4.43 10*6/uL 3.95 - 5.1 1 m/uL [employer] Phone: WBC (Bld) [#/Vol] 8.2 10*3/uL [employer] Phone: Comp Metabolic Profon 2020 (cont.) Normal [facility] Comment on above: Result Comment: Aver age GFR for 30-39 years old: 107 mL/min/1.73sq m Chronic Kidney Disease: <60 mL/min/1.73sq m Kidney failure: <15 mL/min/1.73sq m eGFR calculated using average adult body mass. Additional eGFR calculator available at: http://www.iPixCel.com/multiple_crcl_2011.htm Performed By: #### I PF, CBC, CP, HCG #### [facility] [address] [place] [address] [employer] Operator: Mateo Mir MD #### HIVCMB, PHEP #### [facility] [employer] [address] [place] [address] [employer] Operator: Valdo Diaz MD Albumin [Mass/Vol] 3.6 g/dL Normal 3.5-5.2 [facility] Comment on above: Performed By: #### I PF, CBC, CP, HCG #### [facility] [address] [place] [address] Dr. [place], [place] [id number] [employer]: Mateo Mir MD #### HIVCMB, PHEP #### [address] [address] [employer] Operator: Valdo Diaz MD Albumin/Glob Ratio 1.2 Normal 1.0-2.5 [facility] Comment on above: Performed By: #### I PF, CBC, CP, HCG #### [facility] [address] [place] [address] Dr. [place], [place] [id number] [employer] Operator: Mateo Mir MD #### HIVCMB, PHEP #### [address] [address] [employer] Operator: Valdo Diaz MD Alkaline Phos 174 U/L High 35-104 [facility] Comment on above: Performed By: #### I PF, CBC, CP, HCG #### [address] [place], [place] [id number] [employer] Operator: Mateo Mir MD #### HIVCMB, PHEP #### [address] [address] [employer] Operator: Valdo Diaz MD ALT [Catalytic activity/Vol] 65 U/L High 5-33 [facility] Comment on above: Performed By: #### I PF, CBC, CP, HCG #### [address] [place], [place] [id number] [employer] Operator: Mateo Mir MD #### HIVCMB, PHEP #### [address] [id number] [employer] Operator: Valdo Diaz MD Anion gap [Moles/Vol] 8 mmol/L Low 9-17 [facility] Comment on above: Performed By: #### I PF, CBC, CP, HCG #### [facility] [address] [place], [place] [id number] [employer] Operator: Mateo Mir MD #### HIVCMB, PHEP #### [address] [id number] [employer] Operator: Valdo Diaz MD AST [Catalytic activity/Vol] 42 U/L High <32 [facility] Comment on above: Performed By: #### I PF, CBC, CP, HCG #### [facility] [address] [place] [address] Dr. [place], [place] [id number] [employer] Operator: Mateo Mir MD #### HIVCMB, PHEP #### [address] [address] [employer] Operator: Valdo Diaz MD Bilirubin [Mass/Vol] 0.20 mg/dL Low 0.3-1.2 [facility] Comment on above: Performed By: #### I PF, CBC, CP, HCG #### [facility] [address] [place] [address] Dr. [place], [place] [id number] [employer] Operator: Mateo Mir MD #### HIVCMB, PHEP #### [address] [address] [employer] Operator: Valdo Diaz MD BUN/CRE Ratio 12 Normal 9-20 [facility] Comment on above: Performed By: #### I PF, CBC, CP, HCG #### [facility] [address] [place] [address] Dr. [place], [place] [id number] [employer] Operator: Mateo Mir MD #### HIVCMB, PHEP #### [address] [address] [employer] Operator: Valdo Diaz MD Calcium [Mass/Vol] 9.2 mg/dL Normal 8.6-10.4 [facility] Comment on above: Performed By: #### I PF, CBC, CP, HCG #### [facility] [address] [place], [place] [id number] [employer] Operator: Mateo Mir MD #### HIVCMB, PHEP #### [address] [id number] [employer] Operator: Valdo Diaz MD Chloride [Moles/Vol] 107 mmol/L Normal 98-107 [facility] Comment on above: Performed By: #### I PF, CBC, CP, HCG #### [facility] [address] [place] [address] Dr. [place], [place] [id number] [employer] Operator: Mateo Mir MD #### HIVCMShavon, PHEP #### [address] [id number] [employer] Operator: Valdo Diaz MD CO2 [Moles/Vol] 26 mmol/L Normal 20-31 [facility] Comment on above: Performed By: #### I PF, CBC, CP, HCG #### [address] [place], [place] 694[address]83 [employer] Operator: Mateo Mir MD #### HIVCMShavon, PHEP #### [address] [id number] [employer] Operator: Valdo Diaz MD Creatinine [Mass/Vol] 0.67 mg/dL Normal 0.50-0.90 [facility] Comment on above: Performed By: #### I PF, CBC, CP, HCG #### [facility] [address] [place] [address] Dr. [place], [place] [id number] [employer] Operator: Mateo Mir MD #### HIVCMB, PHEP #### [address] [id number] [employer] Operator: Valdo Diaz MD GFR, Amer >60 Normal >60 [facility] Comment on above: Performed By: #### I PF, CBC, CP, HCG #### [facility] [address] [place] [address] [place], [place] 8101[address] [employer] Operator: Mateo Mir MD #### HIVCMB, PHEP #### [address] [id number] [employer] Operator: Valdo Diaz MD GFR,non Amer >60 Normal >60 [facility] Comment on above: Performed By: #### I PF, CBC, CP, HCG #### [facility] [address] [place] [address] [place], [place] [id number] [employer] Operator: Mateo Mir MD #### HIVCMB, PHEP #### [address] [id number] [employer] Operator: Valdo Diaz MD Glucose [Mass/Vol] 99 mg/dL Normal 70-99 [facility] Comment on above: Performed By: #### I PF, CBC, CP, HCG #### [facility] [address] [place] [address] [place], [place] [id number] [employer] Operator: Mateo Mir MD #### HIVCMB, PHEP #### [address] [id number] [employer] Operator: Valdo Diaz MD Potassium [Moles/Vol] 4.2 mmol/L Normal 3.7-5.3 [facility] Comment on above: Performed By: #### I PF, CBC, CP, HCG #### [facility] [address] [place] [address] [place], [place] [id number] [employer] Operator: Mateo Mir MD #### HIVCMB, PHEP #### [address] [id number] [employer] Operator: Valdo Diaz MD Protein [Mass/Vol] 6.6 g/dL Normal 6.4-8.3 [facility] Comment on above: Performed By: #### I PF, CBC, CP, HCG #### [address] [place] [address] [employer] Tw[employer] Operator: Mateo Mir MD #### HIVCMB, PHEP #### [facility] [address], [place] [id number] [employer] Tw[employer] Operator: Valdo Diaz MD Sodium [Moles/Vol] 141 mmol/L Normal 135-144 [facility] Comment on above: Performed By: #### I PF, CBC, CP, HCG #### [address] [place] [address] [employer] Tw[employer] Operator: Mateo Mir MD #### HIVCMB, PHEP #### [address] [place], [place] [id number] [employer] Tw[employer] Operator: Valdo Diaz MD Staging: Normal [facility] Comment on above: Result Comment: Stag e 1: Some kidney damage normal GFR Stage 2: Mild kidney damage GFR 60-89 Stage 3: Moderate kidney damage GFR 30-59 Stage 4: Severe kidney damage GFR 15-29 Stage 5: Severe kidney damage GFR <15 ESRD - chronic treatment by dialysis or transplant Performed By: #### I PF, CBC, CP, HCG #### [address] [place] [address] [employer] Tw[employer] Operator: Mateo Mir MD #### HIVCMB, PHEP #### [facility] [address] [place], [place] [id number] [employer] Operator: Valdo Diaz MD Urea nitrogen [Mass/Vol] 8 mg/dL Normal 6-20 [facility] Comment on above: Performed By: #### I PF, CBC, CP, HCG #### [address] [place] [address] [employer] Tw[employer] Operator: Mateo Mir MD #### HIVCMB, PHEP #### [facility] [address] [id number] Air Tw[employer] Operator: Valdo Diaz MD Comprehensive Metabolic Pane lOrdered By: Diego Hernandez on 10-27-2020 Albumin [Mass/Vol] 3.6 g/dL 3.5 - 5.2 g/dL [facility] [employer] Work Phone: Albumin/Globulin [Mass ratio] 1.2 {ratio} [facility] Phone: ALP (Bld) [Catalytic activity/Vol] 174 U/L High 35 - 104 U/L [facility] Phone: ALT [Catalytic activity/Vol] 65 U/L High 5 - 33 U/L [facility] Phone: Anion gap [Moles/Vol] 8 mmol/L Low 9 - 17 mmol/L [facility] Phone: AST [Catalytic activity/Vol] 42 U/L High <32 [facility] Phone: Bilirubin [Mass/Vol] 0.20 mg/dL Low 0.3 - 1.2 mg/dL [facility] Phone: Calcium [Mass/Vol] 9.2 mg/dL 8.6 - 10. 4 mg/dL [facility] Phone: Chloride [Moles/Vol] 107 mmol/L 98 - 107 mmol/L [facility] Phone: CO2 [Moles/Vol] 26 mmol/L 20 - 31 mmol/L [facility] Phone: Creatinine [Mass/Vol] 0.67 mg/dL 0.50 - 0.90 mg/dL [facility] Phone: Free PSA/Total PSA [Mass fraction] 6.6 g/dL 6.4 - 8.3 g/dL [employer] Phone: GFR >60 >60 mL/min [employer] Phone: GFR Non- >60 >60 mL/min [employer] Phone: Glucose [Mass/Vol] 99 mg/dL 70 - 99 mg/dL [facility] [employer] Phone: Interpretation and review of laboratory results Abnormal [facility] Phone: Potassium [Moles/Vol] 4.2 mmol/L 3.7 - 5.3 mmol/L [facility] Phone: Sodium [Moles/Vol] 141 mmol/L 135 - 144 mmol/L [employer] Phone: Urea nitrogen (BldV) [Mass/Vol] 8 mg/dL 6 - 20 mg/dL [employer] Phone: Urea nitrogen/Creatinine (Bld) [Mass ratio] 12 [employer] Phone: HCG Qualitative, SerumOrdere d By: Diego Hernandez on 10-27-2020 hCG Qual Negative NEGATIVE [employer] Phone: Comment on above: Specimens with hCG l evels near the threshold of the test (25 mIU/mL) may give a negative or indeterminate result. In such cases, another test should be performed with a new specimen in 48-72 hours. If early is suspected clinically in this setting, correlation with quantitative serum b-hCG level is suggested. [employer] has confirmed the use of plasma for this test. This has not been cleared or approved by the U.S. Food and Drug Administration. The FDA has determined that such clearance is not necessary. HCG Screen, Bloodon 10-28-19 21 HCG Screen, Blood Negative Normal NEG [facility] Comment on above: Result Comment: Spec imens with hCG levels near the threshold of the test (25 mIU/mL) may give a negative or indeterminate result. In such cases, another test should be performed with a new specimen in 48-72 hours. If early is suspected clinically in this setting, correlation with quantitative serum b-hCG level is suggested. [employer] has confirmed the use of plasma for this test. This has not been cleared or approved by the U.S. Food and Drug Administration. The FDA has determined that such clearance is not necessary. Performed By: #### I PF, HCG, CP, CBC #### [address] [place] [address] [employer] Operator: Fidel Hallman MD #### HIVCMB, PHEP #### [facility] [address] [place], [place] [id number] [employer] Operator: Valdo Diaz MD HIV Ag/Abon 10-27-2020 HIV Ag/Ab Non-Reactive Normal NR [facility] Comment on above: Result Comment: No l aboratory evidence of HIV infection. If acute HIV infection is suspected, consider testing for HIV-1 RNA. Performed By: #### I PF, HCG, CP, CBC #### [address] [place] [address] [employer] Operator: Fidel Hallman MD #### HIVCMB, PHEP #### [address] [place], [place] [id number] [employer] Operator: Valdo Diaz MD HIV ScreenOrdered By: Diego Hernandez on 10-27-2020 HIV Ag/Ab Non-Reactive NONREACTIVE [facility] Work Phone: Comment on above: No laboratory eviden ce of HIV infection. If acute HIV infection is suspected, consider testing for HIV-1 RNA. Hepatitis Acute [facility] 10-27 Hep A Ab,IgM Non-Reactive Normal NR [facility] Comment on above: Performed By: #### I PF, HCG, CP, CBC #### [address] [place] [address] [employer] Operator: Fidel Hallman MD #### HIVCMB, PHEP #### [facility] [address] [place], [place] [phone] Air Twist Operator: Valdo Diaz MD Hep B Core Ab,IgM Non-Reactive Normal [facility] Comment on above: Performed By: #### I PF, HCG, CP, CBC #### [facility] [address] [place] [address] [employer] Twist Operator: Fidel Hallman MD #### HIVCMB, PHEP #### [address] [phone] Air Twist Operator: Valdo Diaz MD Hep B Surf Ag Non-Reactive Normal [facility] Comment on above: Performed By: #### I PF, HCG, CP, CBC #### [address] [place] [address] [employer] Twist Operator: Fidel Hallman MD #### HIVCMB, PHEP #### [address] [phone] Air Twist Operator: Valdo Diaz MD Hep C Ab Reactive Abnormal [facility] Comment on above: Result Comment: [...] #### I PF, HCG, CP, CBC #### [address] [place] [address] [employer] Tw[employer] Operator: Fidel Hallman MD #### HIVCMB, PHEP #### [id number] [place] [address] Air Twist Operator: Valdo Diaz MD Hepatitis Panel, AcuteOrdere d By: Diego Hernandez on 10-27-2020 HAV IgM IA Qn (S) Non-Reactive NONREACTIVE [facility] [employer] Work Phone: Hep B Core Ab, IgM Non-Reactive NONREACTIVE [facility] Work Phone: Hepatitis B Surface Ag Non-Reactive NONREACTIVE [employer] Phone: Hepatitis C Ab Reactive Abnormal NONREACTIVE [facility] Work Phone: Comment on above: The hepatitis [...] Interpretation and review of laboratory results Abnormal [employer] Phone: Immature Platelet FractionOr dered By: Diego Hernandez on 10-27-2020 Interpretation and review of laboratory results Abnormal [employer] Phone: Platelet, Fluorescence 123 Low [employer] Phone: Platelet, Immature Fraction 15.9 % High 1.1 - 10.3 % [employer] Phone: Laboratory - Chemistry and C hemistry - challengeOrdered By: Diego Hernandez on 10-27-2020 GFR/1.73 sq M.predicted MDRD (S/P/Bld) [Vol rate/Area] [employer] Phone: Comment on above: Average GFR for 30-3 9 years old: 107 mL/min/1.73sq m Chronic Kidney Disease: <60 mL/min/1.73sq m Kidney failure: <15 mL/min/1.73sq m eGFR calculated using average adult body mass. Additional eGFR calculator available at: http://www.iPixCel.com/multiple_crcl_2012.htm Stage 1: Some kidney damage normal GFR Stage 2: Mild kidney damage GFR 60-89 Stage 3: Moderate kidney damage GFR 30-59 Stage 4: Severe kidney damage GFR 15-29 Stage 5: Severe kidney damage GFR <15 ESRD - chronic treatment by dialysis or transplant PLT, Immature Fract.on 10-27 Platelet, Fluoresc. 123 k/uL Low 138-453 [facility] Comment on above: Performed By: #### I PF, CBC, CP, HCG #### [facility] [address] [place] [address] [employer] Twist Operator: Mateo Mir MD #### HIVCMB, PHEP #### [facility] [address] [place], [place] [phone] Air Twist Operator: Valdo Diaz MD PLT, Immature Fract. 15.9 % High 1.1-10.3 [facility] Comment on above: Performed By: #### I PF, CBC, CP, HCG #### [facility] [address] [place] [address] Air Twist Operator: Mateo Mir MD #### HIVCMB, PHEP #### [address] [place], [place] [id number] Air Twist Operator: Valdo Diaz MD HCV RNA,Quant,PCRon 05-13-20 20 [...] Health Department Report Status FINAL 05/13/2020 Normal [facility] Comment on above: Performed By: #### I PF, HCG, CP, CBC #### [facility] [address] [place] [address] [employer] Twist Operator: Fidel Hallman MD #### HIVCMB, PHEP #### [facility] [address] [place], [place] [phone] [employer] Tw[employer] Operator: Valdo Diaz MD CBCon 05-12-2020 Erythrocyte distribution width (RBC) [Ratio] 14.7 % High 11.8-14.4 [facility] Comment on above: Performed By: #### I PF, HCG, CP, CBC #### [address] [place] [phone] Air Twist Operator: Fidel Hallman MD #### HIVCMB, PHEP #### [address] [phone] Air Tw[employer] Operator: Valdo Diaz MD Hematocrit (Bld) [Volume fraction] 39.7 % Normal 36.3-47.1 [facility] Comment on above: Performed By: #### I PF, HCG, CP, CBC #### [address] [place] [address] [employer] Twist Operator: Fidel Hallman MD #### HIVCMB, PHEP #### [address] [address] Air Twist Operator: Valdo Diaz MD Hemoglobin (Bld) [Mass/Vol] 12.2 g/dL Normal 11.9-15.1 [facility] Comment on above: Performed By: #### I PF, HCG, CP, CBC #### [address] [place] [phone] Air Twist Operator: Fidel Hallman MD #### HIVCMB, PHEP #### [address] [phone] Air Twist Operator: Valdo Diaz MD MCH (RBC) [Entitic mass] 27.6 pg Normal 25.2-33.5 [facility] Comment on above: Performed By: #### I PF, HCG, CP, CBC #### [address] [place] [phone] Air Twist Operator: Fidel Hallman MD #### HIVCMB, PHEP #### [address] [phone] Air Twist Operator: Valdo Diaz MD MCHC (RBC) [Mass/Vol] 30.7 g/dL Normal 28.4-34.8 [facility] Comment on above: Performed By: #### I PF, HCG, CP, CBC #### [address] [place] [phone] Air Twist Operator: Fidel Hallman MD #### HIVCMB, PHEP #### [place] [address] Air Twist Operator: Valdo Diaz MD MCV (RBC) [Entitic vol] 89.8 fL Normal 82.6-102.9 [facility] Comment on above: Performed By: #### I PF, HCG, CP, CBC #### [address] [place] [phone] Air Twist Operator: Fidel Hallman MD #### HIVCMB, PHEP #### [place] [address] Air Twist Operator: Valdo Diaz MD NRBC Automated 0.0 per 100 WBC Normal 0.0 [facility] Comment on above: Performed By: #### I PF, HCG, CP, CBC #### [address] [place] [phone] [employer] Twist Operator: Fidel Hallman MD #### HIVCMB, PHEP #### [place] [phone] Air Twist Operator: Valdo Diaz MD Platelet Count See Reflexed IPF Result Normal 138-453 [facility] Comment on above: Performed By: #### I PF, HCG, CP, CBC #### [address] [place] [phone] [employer] Tw[employer] Operator: Fidel Hallman MD #### HIVCMB, PHEP #### [address] [place], [place] [phone] Air Twist Operator: Valdo Diaz MD RBC (Bld) [#/Vol] 4.42 10*6/uL Normal 3.95-5.11 [facility] Comment on above: Performed By: #### I PF, HCG, CP, CBC #### [address] [place] [phone] Air Twist Operator: Fidel Hallman MD #### HIVCMB, PHEP #### [address] [phone] Air Twist Operator: Valdo Diaz MD WBC (Bld) [#/Vol] 8.9 10*3/uL Normal 3.5-11.3 [facility] Comment on above: Performed By: #### I PF, HCG, CP, CBC #### [address] [place] [phone] Air Twist Operator: Fidel Hallman MD #### HIVCMB, PHEP #### [address] [phone] Air Twist Operator: Valdo Diaz MD MPV NOT REPORTED Normal 8.1-13.5 [facility] Comment on above: Performed By: #### I PF, HCG, CP, CBC #### [address] [place] [phone] Air Twist Operator: Fidel Hallman MD #### HIVCMB, PHEP #### [address] [phone] Air Twist Operator: Valdo Diaz MD Erythrocyte distribution width (RBC) [Ratio] 14.7 % High 11.8 - 14.4 % [place] Hematocrit (Bld) [Volume fraction] 39.7 % 36.3 - 47.1 % [place] Hemoglobin (Bld) [Mass/Vol] 12.2 g/dL 11.9 - 15.1 g/dL [place] Interpretation and review of laboratory results Abnormal [place] MCH (RBC) [Entitic mass] 27.6 pg 25.2 - 33.5 pg [place] MCHC (RBC) [Mass/Vol] 30.7 g/dL 28.4 - 34.8 g/dL [place] MCV (RBC) [Entitic vol] 89.8 fL 82.6 - 102.9 fL [place] Platelet mean volume (Bld) [Entitic vol] NOT REPORTED 8.1 - 13.5 fL [place] Platelets (Bld) [#/Vol] See Reflexed IPF Result [place] RBC (Bld) [#/Vol] 4.42 10*6/uL 3.95 - 5.1 1 m/uL [place] WBC (Bld) [#/Vol] 0.0 10*3/uL 0.0 per 100 WBC M [place] WBC (Bld) [#/Vol] 8.9 10*3/uL [place] Comp Metabolic Profon 2019 (cont.) Normal [facility] Comment on above: Result Comment: Aver age GFR for 30-39 years old: 107 mL/min/1.73sq m Chronic Kidney Disease: <60 mL/min/1.73sq m Kidney failure: <15 mL/min/1.73sq m eGFR calculated using average adult body mass. Additional eGFR calculator available at: http://www.iPixCel.gDecide/multiple_crcl_2011.htm Performed By: #### I PF, HCG, CP, CBC #### [facility] [address] [place] [address] Air Twist Operator: Fidel Hallman MD #### HIVCMB, PHEP #### [facility] [employer] [facility] [place] [address] Air Twist Operator: Valdo Diaz MD Albumin [Mass/Vol] 3.9 g/dL Normal 3.5-5.2 [facility] Comment on above: Performed By: #### I PF, HCG, CP, CBC #### [facility] [address] [place] [phone] [employer] Tw[employer] Operator: Fidel Hallman MD #### HIVCMB, PHEP #### [address] [id number] Air Tw[employer] Operator: Valdo Diaz MD Albumin/Glob Ratio 1.3 Normal 1.0-2.5 [facility] Comment on above: Performed By: #### I PF, HCG, CP, CBC #### [address] [place] [phone] ( Air Twist Operator: Fidel Hallman MD #### HIVCMB, PHEP #### [address] [phone] Air Twist Operator: Valdo Diaz MD Alkaline Phos 122 U/L High 35-104 [facility] Comment on above: Performed By: #### I PF, HCG, CP, CBC #### [address] [place] [phone] ( Air Twist Operator: Fidel Hallman MD #### HIVCMB, PHEP #### [address] [address] Air Twist Operator: Valdo Diaz MD ALT [Catalytic activity/Vol] 98 U/L High 5-33 [facility] Comment on above: Performed By: #### I PF, HCG, CP, CBC #### [facility] [address] [place] [phone] [employer] Tw[employer] Operator: Fidel Hallman MD #### HIVCMB, PHEP #### [address] [address] Air Twist Operator: Valdo Diaz MD Anion gap [Moles/Vol] 11 mmol/L Normal 9-17 [facility] Comment on above: Performed By: #### I PF, HCG, CP, CBC #### [facility] [address] [place] [address] [employer] Twist Operator: Fidel Hallman MD #### HIVCMB, PHEP #### [address] [address] [employer] Twist Operator: Valdo Diaz MD AST [Catalytic activity/Vol] 51 U/L High <32 [facility] Comment on above: Performed By: #### I PF, HCG, CP, CBC #### [facility] [address] [place] [phone] [employer] Operator: Fidel Hallman MD #### HIVCMB, PHEP #### [address] [address] Air Twist Operator: Valdo Diaz MD Bilirubin [Mass/Vol] 0.20 mg/dL Low 0.3-1.2 [facility] Comment on above: Performed By: #### I PF, HCG, CP, CBC #### [facility] [address] [place] [phone] [employer] Tw[employer] Operator: Fidel Hallman MD #### HIVCMB, PHEP #### [address] [address] [employer] Twist Operator: Valdo Diaz MD BUN/CRE Ratio 14 Normal 9-20 [facility] Comment on above: Performed By: #### I PF, HCG, CP, CBC #### [facility] [address] [place] [address] [employer] Twist Operator: Fidel Hallman MD #### HIVCMB, PHEP #### [address] [address] [employer] Twist Operator: Valdo Diaz MD Calcium [Mass/Vol] 9.3 mg/dL Normal 8.6-10.4 [facility] Comment on above: Performed By: #### I PF, HCG, CP, CBC #### [facility] [address] [place], [place] [phone] Air Twist Operator: Fidel Hallman MD #### HIVCMB, PHEP #### [address] [phone] Air Twist Operator: Valdo Diaz MD Chloride [Moles/Vol] 109 mmol/L High 98-107 [facility] Comment on above: Performed By: #### I PF, HCG, CP, CBC #### [facility] [address] [place] [address] [employer] Twist Operator: Fidel Hallman MD #### HIVCMB, PHEP #### [address] [phone] Air Twist Operator: Valdo Diaz MD CO2 [Moles/Vol] 23 mmol/L Normal 20-31 [facility] Comment on above: Performed By: #### I PF, HCG, CP, CBC #### [facility] [address] [place], [place] [phone] [employer] Tw[employer] Operator: Fidel Hallman MD #### HIVCMB, PHEP #### [address] [phone] Air Twist Operator: Valdo Diaz MD Creatinine [Mass/Vol] 0.69 mg/dL Normal 0.50-0.90 [facility] Comment on above: Performed By: #### I PF, HCG, CP, CBC #### [facility] [address] [place], [place] 9861683 Air Twist Operator: Fidel Halmlan MD #### HIVCMB, PHEP #### [address] [phone] Air Twist Operator: Valdo Diaz MD GFR, Amer >60 Normal >60 [facility] Comment on above: Performed By: #### I PF, HCG, CP, CBC #### [facility] [address] [place], [place] [phone] Air Twist Operator: Fidel Hallman MD #### HIVCMB, PHEP #### [address] [place], [place] 4042608 Air Twist Operator: Valdo Diaz MD GFR,non Amer >60 Normal >60 [facility] Comment on above: Performed By: #### I PF, HCG, CP, CBC #### [facility] [address] [place], [place] [phone] Air Twist Operator: Fidel Hallman MD #### HIVCMB, PHEP #### [address] [phone] Air Twist Operator: Valdo Diaz MD Glucose [Mass/Vol] 154 mg/dL High 70-99 [facility] Comment on above: Performed By: #### I PF, HCG, CP, CBC #### [facility] [address] [place], [place] [phone] Air Twist Operator: Fidel Hallman MD #### HIVCMB, PHEP #### [address] [phone] Air Twist Operator: Valdo Diaz MD Potassium [Moles/Vol] 3.9 mmol/L Normal 3.7-5.3 [facility] Comment on above: Performed By: #### I PF, HCG, CP, CBC #### [facility] [address] [place], [place] [phone] Air Twist Operator: Fidel Hallman MD #### HIVCMB, PHEP #### [address] [address] Air Twist Operator: Valdo Diaz MD Protein [Mass/Vol] 7.0 g/dL Normal 6.4-8.3 [facility] Comment on above: Performed By: #### I PF, HCG, CP, CBC #### [address] [place], [place] [phone] Air Twist Operator: Fidel Hallman MD #### HIVCMB, PHEP #### [address] [address] Air Twist Operator: Valdo Diaz MD Sodium [Moles/Vol] 143 mmol/L Normal 135-144 [facility] Comment on above: Performed By: #### I PF, HCG, CP, CBC #### [address] [place], [place] [phone] Air Twist Operator: Fidel Hallman MD #### HIVCMB, PHEP #### [address] [phone] Air Twist Operator: Valdo Diaz MD Staging: Normal [facility] Comment on above: Result Comment: Stag e 1: Some kidney damage normal GFR Stage 2: Mild kidney damage GFR 60-89 Stage 3: Moderate kidney damage GFR 30-59 Stage 4: Severe kidney damage GFR 15-29 Stage 5: Severe kidney damage GFR <15 ESRD - chronic treatment by dialysis or transplant Performed By: #### I PF, HCG, CP, CBC #### [address] [place], [place] 7592983 [employer] Twist Operator: Fidel Hallman MD #### HIVCMShavon, PHEP #### [address] [address] Air Twist Operator: Valdo Diaz MD Urea nitrogen [Mass/Vol] 10 mg/dL Normal 6-20 [facility] Comment on above: Performed By: #### I PF, HCG, CP, CBC #### [address] [place], [place] 9951183 [employer] Tw[employer] Operator: Fidel Hallman MD #### HIVCMB, PHEP #### [address] [address] Air Twist Operator: Valdo Diaz MD Comprehensive Metabolic Pane angélica 05-12-2020 Albumin [Mass/Vol] 3.9 g/dL 3.5 - 5.2 g/dL [place] Albumin/Globulin [Mass ratio] 1.3 {ratio} [place] ALP [Catalytic activity/Vol] 122 U/L High 35 - 104 U/L [place] ALT [Catalytic activity/Vol] 98 U/L High 5 - 33 U/L [place] Anion gap [Moles/Vol] 11 mmol/L 9 - 17 mmol/L [place] AST [Catalytic activity/Vol] 51 U/L High <32 [place] Bilirubin Ql (U) 0.20 mg/dL Low 0.3 - 1.2 mg/dL [place], [place] Bun/Cre Ratio 14 [place], [place] Calcium [Mass/Vol] 9.3 mg/dL 8.6 - 10. 4 mg/dL [place] Chloride [Moles/Vol] 109 mmol/L High 98 - 107 mmol/L [place] CO2 [Moles/Vol] 23 mmol/L 20 - 31 mmol/L [place] Creatinine [Mass/Vol] 0.69 mg/dL 0.5 - 0.9 mg/d L [place] GFR >60 >60 mL/min [place], [place] GFR Non- >60 >60 mL/min [place] Glucose [Mass/Vol] 154 mg/dL High 70 - 99 mg/dL [place] Interpretation and review of laboratory results Abnormal [place] Potassium [Moles/Vol] 3.9 mmol/L 3.7 - 5.3 mmol/L [place] Protein [Mass/Vol] 7.0 g/dL 6.4 - 8.3 g/dL [place] Sodium [Moles/Vol] 143 mmol/L 135 - 144 mmol/L [place] Urea nitrogen [Mass/Vol] 10 mg/dL 6 - 20 mg/dL [place] HCG Qualitative, Serumon hCG Qual Negative NEGATIVE [facility] [place] Comment on above: Specimens with hCG l evels near the threshold of the test (25 mIU/mL) may give a negative or indeterminate result. In such cases, another test should be performed with a new specimen in 48-72 hours. If early is suspected clinically in this setting, correlation with quantitative serum b-hCG level is suggested. [facility] has confirmed the use of plasma for this test. This has not been cleared or approved by the U.S. Food and Drug Administration. The FDA has determined that such clearance is not necessary. HCG Screen, Bloodon 05-12-20 20 HCG Screen, Blood Negative Normal NEG [facility] Comment on above: Result Comment: Spec imens with hCG levels near the threshold of the test (25 mIU/mL) may give a negative or indeterminate result. In such cases, another test should be performed with a new specimen in 48-72 hours. If early is suspected clinically in this setting, correlation with quantitative serum b-hCG level is suggested. [facility] has confirmed the use of plasma for this test. This has not been cleared or approved by the U.S. Food and Drug Administration. The FDA has determined that such clearance is not necessary. Performed By: #### I PF, HCG, CP, CBC #### [facility] [address] [place] [address] [place] [address] [employer] Twist Operator: Fidel Hallman MD #### HIVCMB, PHEP #### [address] [address] Air Twist Operator: Valdo Diaz MD HIV Ag/Abon 05-12-2020 HIV Ag/Ab Non-Reactive Normal NR [facility] Comment on above: Result Comment: No l aboratory evidence of HIV infection. If acute HIV infection is suspected, consider testing for HIV-1 RNA. Performed By: #### I PF, HCG, CP, CBC #### [facility] [address] [place] [address] [employer] Twist Operator: Fidel Hallman MD #### HIVCMB, PHEP #### [facility] [address] [place] [address] [employer] Tw[employer] Operator: Valdo Diaz MD HIV Screenon 05-12-2020 HIV Ag/Ab NONREACTIVE NONREACTIVE [place] Comment on above: No laboratory eviden ce of HIV infection. If acute HIV infection is suspected, consider testing for HIV-1 RNA. Hepatitis Acute [facility] 05-12 Hep A Ab,IgM Non-Reactive Normal NR [facility] Comment on above: Performed By: #### I PF, HCG, CP, CBC #### [address] [place], [place] [phone] [employer] Twist Operator: Fidel Hallman MD #### HIVCMB, PHEP #### [address] [address] [employer] Twist Operator: Valdo Diaz MD Hep B Core Ab,IgM Non-Reactive Normal [facility] Comment on above: Performed By: #### I PF, HCG, CP, CBC #### [address] [place], [place] [phone] Air Twist Operator: Fidel Hallman MD #### HIVCMB, PHEP #### [address] [address] [employer] Twist Operator: Valdo Diaz MD Hep B Surf Ag Non-Reactive Normal [facility] Comment on above: Performed By: #### I PF, HCG, CP, CBC #### [address] [place] [address] [employer] Twist Operator: Fidel Hallman MD #### HIVCMB, PHEP #### [address] [address] Air Twist Operator: Valdo Diaz MD Hep C Ab Reactive Abnormal [facility] Comment on above: Result Comment: [...] #### I PF, HCG, CP, CBC #### [facility] [address] [place] [address] [employer] Twist Operator: Fidel Hallman MD #### HIVCMB, PHEP #### [facility] [address] [place] [address] Air Twist Operator: Valdo Diaz MD Hepatitis Panel, Acuteon HAV IgM IA Qn (S) NONREACTIVE NONREACTIVE [place] Hep B Core Ab, IgM NONREACTIVE NONREACTIVE [place] Hepatitis B Surface Ag NONREACTIVE NONREACTIVE [place] Hepatitis C Ab REACTIVE Abnormal NONREACTIVE [place] Comment on above: The hepatitis C [...] Interpretation and review of laboratory results Abnormal [place] Immature Platelet Fractionon 05-12-2020 Interpretation and review of laboratory results Abnormal [place] Platelet, Fluorescence 103 Low [place] Platelet, Immature Fraction 15.6 % High 1.1 - 10.3 % [place] Metabolic Panelon 05-12-2020 GFR/1.73 sq M predicted among non-blacks MDRD (S/P/Bld) [Vol rate/Area] [place] Comment on above: Average GFR for 30-3 9 years old: 107 mL/min/1.73sq m Chronic Kidney Disease: <60 mL/min/1.73sq m Kidney failure: <15 mL/min/1.73sq m eGFR calculated using average adult body mass. Additional eGFR calculator available at: http://www.iPixCel.gDecide/multiple_crcl_2012.htm Stage 1: Some kidney damage normal GFR Stage 2: Mild kidney damage GFR 60-89 Stage 3: Moderate kidney damage GFR 30-59 Stage 4: Severe kidney damage GFR 15-29 Stage 5: Severe kidney damage GFR <15 ESRD - chronic treatment by dialysis or transplant PLT, Immature Fract.on 05-12 Platelet, Fluoresc. 103 k/uL Low 138-453 [facility] Comment on above: Performed By: #### I PF, HCG, CP, CBC #### [facility] [address] [facility] [place] [phone] [employer] Operator: Fidel Hallman MD #### HIVCMB, PHEP #### [address] [phone] Air Twist Operator: Valdo Diaz MD PLT, Immature Fract. 15.6 % High 1.1-10.3 [facility] Comment on above: Performed By: #### I PF, HCG, CP, CBC #### [facility] [address] [place] [phone] Air Twist Operator: Fidel Hallman MD #### HIVCMB, PHEP #### [address] [phone] Air Twist Operator: Valdo Diaz MD Ur Opiate Conf-Mayoon 2019 Ur Codeine-Hung 64 ng/mL Normal Cutoff: 25 [facility] Comment on above: Performed By: #### C BC #### [address] [address] Ur Dihydrocodeine-[place] Negative Normal Cutoff: 25 [facility] Comment on above: Performed By: #### C BC #### [facility] [address] [place] [address] Ur Hydrocodone-[place] Negative Normal Cutoff: 25 [facility] Comment on above: Performed By: #### C BC #### [address] [address] Ur Hydromorphone-[place] Negative Normal Cutoff: 25 [facility] Comment on above: Performed By: #### C BC #### [address] [address] Ur Morphine-Hung 1231 ng/mL Normal Cutoff: [address] [facility] Comment on above: Performed By: #### C BC #### [address] [address] Ur Naloxone-Hung Negative Normal Cutoff: [address] [facility] Comment on above: Performed By: #### C BC #### [address] [address] Ur Norhydrocodone-Hung Negative Normal Cutoff: 25 [facility] Comment on above: Performed By: #### C BC #### [address] [address] Ur Noroxycodone-Hung Negative Normal Cutoff: 25 [facility] Comment on above: Performed By: #### C BC #### [address] [place] [address] Ur Noroxymorphone-Hung Negative Normal Cutoff: 25 [facility] Comment on above: Performed By: #### C BC #### [address] [address] Ur Opiates Interp-Hung Positive Normal [facility] Comment on above: Result Comment: ADDITIONAL INFORMATION This report is intended for use in clinical monitoring and management of patients. It is not intended for use in employment-related testing. This test was developed and its performance characteristics determined by [facility] in a manner consistent with CLIA requirements. This test has not been cleared or approved by the U.S. Food and Drug Administration. Test Performed by: [facility] - [address] [address] Air Twist Operator: Santiago Mendoza M.D. Ph.D.; CLIA# [id number] Performed By: #### C BC #### [address] [address] Ur Oxycodone-[place] Negative Normal Cutoff: 25 [facility] Comment on above: Performed By: #### C BC #### [address] [address] Ur Oxymorphone-[place] Negative Normal Cutoff: 25 [facility] Comment on above: Performed By: #### C BC #### [address] [address] HBc Total Abs-[place] 020 HBc Total Ab-[place] Negative Normal Negative [facility] Comment on above: Result Comment: Test Performed by: [facility] [place] [address] Air Twist Operator: Santiago Mendoza M.D. Ph.D.; CLIA# [id number] Performed By: #### C BC #### [address] [address] HCV RNA Qnt-[facility] 0 HepC RNA PCR Qnt-[place] 065782 IU/mL Abnormal Undetected B [facility] Comment on above: Result Comment: Resu lt in log IU/mL is 5.71. ADDITIONAL INFORMATION The quantification range of this assay is 15 to 100,000,000 IU/mL (1.18 log to 8.00 log IU/mL). Testing was performed using the kendrick HCV test ([employer] with the kendrick CAILabs0 System. Test Performed by: [facility] [place] [address] Air Twist Operator: Santiago Mendoza M.D. Ph.D.; CLIA# [id number] Performed By: #### C BC #### [address] [address] .eGFRon 12-03-2019 eGFR AA >60 Normal >=60 [facility] Comment on above: Order Comment: Order added by Discern rule Result Comment: Resu lt = 0-14.9 mL/min/1.73 m2 Kidney failure or Dialysis Result = 15-29 mL/min/1.73 m2 Severe decrease in GFR Result = 30-59 mL/min/1.73 m2 Moderate decrease in GFR Result >= 60 mL/min/1.73 m2 Normal or increased GFR Performed By: #### . Automated Diff #### [address] [address] eGFR Non-AA >60 Normal >=60 [facility] Comment on above: Order Comment: Order [...] Performed By: #### . Automated Diff #### [address] [address] [facility] 12-03-2019 Albumin [Mass/Vol] 3.4 g/dL Normal 3.2-4.9 [facility] Comment on above: Result Comment: [facility] Laboratory updated the methodology used for albumin testing on 02/06/18. Albumin measurement was performed using a bromcresol purple dye-binding assay. Performed By: #### . Automated Diff #### [address] [address] Albumin/Globulin [Mass ratio] 1.1 {ratio} Normal 1.1-2.2 [facility] Comment on above: Performed By: #### . Automated Diff #### [address] [address] Alk Phos 120 IU/L High 32-91 [facility] Comment on above: Performed By: #### . Automated Diff #### [address] [address] ALT [Catalytic activity/Vol] 76 U/L High 14-54 [facility] Comment on above: Performed By: #### . Automated Diff #### [address] [address] Anion gap [Moles/Vol] 13 mmol/L Normal 7-17 [facility] Comment on above: Performed By: #### . Automated Diff #### [address] [address] AST [Catalytic activity/Vol] 53 U/L High 15-41 [facility] Comment on above: Performed By: #### . Automated Diff #### [address] [address] Bili Total 0.5 mg/dL Normal 0.3-1.2 [facility] Comment on above: Performed By: #### . Automated Diff #### [address] [address] Calcium [Mass/Vol] 8.7 mg/dL Normal 8.5-10.3 [facility] Comment on above: Performed By: #### . Automated Diff #### [address] [address] Chloride [Moles/Vol] 104 mmol/L Normal 98-110 [facility] Comment on above: Performed By: #### . Automated Diff #### [address] [address] CO2 [Moles/Vol] 26 mmol/L Normal 22-32 [facility] Comment on above: Performed By: #### . Automated Diff #### [address] [address] Creatinine [Mass/Vol] 0.75 mg/dL Normal 0.44-1.03 [facility] Comment on above: Performed By: #### . Automated Diff #### [address] [address] Glucose [Mass/Vol] 100 mg/dL High 70-99 [facility] Comment on above: Performed By: #### . Automated Diff #### [address] [address] Potassium [Moles/Vol] 3.7 mmol/L Normal 3.4-4.8 [facility] Comment on above: Performed By: #### . Automated Diff #### [address] [address] Protein [Mass/Vol] 6.5 g/dL Normal 6.5-8.1 [facility] Comment on above: Performed By: #### . Automated Diff #### [address] [address] Sodium [Moles/Vol] 139 mmol/L Normal 133-142 [facility] Comment on above: Performed By: #### . Automated Diff #### [address] [address] Urea nitrogen [Mass/Vol] 15 mg/dL Normal 8-26 [facility] Comment on above: Performed By: #### . Automated Diff #### [address] [address] Urea nitrogen/Creatinine [Mass ratio] 20.0 mg/mg Normal 10.0-20.0 [facility] Comment on above: Performed By: #### . Automated Diff #### [address] [address] Chlam & GC, DNAon 12-03-2019 Chlamydia, DNA Negative Normal Negative [facility] Comment on above: Result Comment: [...] clinician. Performed By: #### C BC #### [address] [address] Gonorrhea, DNA Negative Normal Negative [facility] Comment on above: Result Comment: [...] clinician. Performed By: #### C BC #### [address] [address] Inpatient Clinical Summaryon 12-03-2019 Inpatient Clinical Summary [address] [address] [address] Clinical Summary Person Information Name: Farideh Peoples Age: 34 Years : 1985 Sex: Female PCP: Marital Status: Single Phone: PCP: Race: White Ethnicity: Not or Language: [place]ian Visit Id: Visit Reason: Drug withdrawal Speciality: Acuity: Enc Type: Observation Med Service: X Medication Withdrawal Management Arrival: 12/02/2019 03:53:05 Discharge: Dispo Type: Place in Observation Address: [address] [place] [address] Diagnosis: 1:Heroin addiction; 2:Tobacco user; 3:Transaminitis; 4:Hepatitis [...] 12/03/19 12:52:00 EDT, 1 to 2 days, [facility] as scheduled tomorrow. Allergies No Known Allergies [...] range between ( 27.2 and 40.8 ) [place] Auto: 4.2 % -- Normal range between [...] range between ( 36.0 and 46.0 ) [place] Absolute: 0.4 x10 MCH: 28.6 pg -- [...] YOUR HOSPITAL STAY New Medications [facility], 2019 [place], [place] [id number], [phone] baclofen (baclofen 10 mg oral tablet) 10 [...] OF YOUR PATIENT?S CURRENT MEDICATIONS [facility] [address] [place], [place] [id number], [phone] baclofen (baclofen 10 mg oral tablet) 10 [...] Referring Physician: Follow up: With: Address: When: [facility] [place] [address] 12/08/2019 12:30:00 Comments: Intake and diagnostic assessment With: Address: When: [facility] [place] [address] [place] [address] 12/04/2019 13:00:00 Comments: Case management appointment Normal [facility] Lipid Panelon 12-03-2019 Cholesterol in LDL [Mass/Vol] 97 mg/dL Normal 0-99 [facility] Comment on above: Result Comment: The equation being used in this calculation is LDL = (Chol - HDL) - (Trig / 5) The optimal value of LDL for individual patients may vary. The patient's history of Artherosclerosis and other cardiac risk factors should be considered. Performed By: #### . Automated Diff #### [address] [address] Cardiac Risk 6.3 Normal [facility] Comment on above: Result Comment: Men Women 1/2 Average 3.43 3.27 Average 4.97 4.44 2x Average 9.55 7.05 3x Average 23.99 11.04 Performed By: #### . Automated Diff #### [address] [address] Cholesterol [Mass/Vol] 151 mg/dL Normal 25-199 [facility] Comment on above: Result Comment: 0 - 17 years of age: Desirable 0-170 Borderline High 170-199 High >=200 18 years and older: Acceptable <200 Borderline High 200-239 High >=240 Performed By: #### . Automated Diff #### [address] [address] Cholesterol in HDL [Mass/Vol] 24.0 mg/dL Low 40.0-60.0 [facility] Comment on above: Performed By: #### . Automated Diff #### [address] [address] Cholesterol in VLDL [Mass/Vol] 30 mg/dL Normal 8-39 [facility] Comment on above: Performed By: #### . Automated Diff #### [address] [address] Triglyceride [Mass/Vol] 152 mg/dL Normal [facility] Comment on above: Result Comment: 0 - 17 years of age: Trig 90 - 129 Borderline High Trig => 130 High 18 years and older: Trig 150 - 199 Borderline High Trig 200 - 499 High Trig =>500 Very High Performed By: #### . Automated Diff #### [address] [address] .eGFRon 12-02-2019 eGFR AA >60 Normal >=60 [facility] Comment on above: Result Comment: Resu lt = 0-14.9 mL/min/1.73 m2 Kidney failure or Dialysis Result = 15-29 mL/min/1.73 m2 Severe decrease in GFR Result = 30-59 mL/min/1.73 m2 Moderate decrease in GFR Result >= 60 mL/min/1.73 m2 Normal or increased GFR Performed By: #### E GFR #### [address] [address] eGFR Non-AA >60 Normal >=60 [facility] Comment on above: Result Comment: Resu [...] dosing. Performed By: #### E GFR #### [address] [address] CBC w/ Diffon 12-02-2019 Erythrocyte distribution width (RBC) [Ratio] 15.1 % High 11.6-14.8 [facility] Comment on above: Performed By: #### C BC #### [address] [address] Hematocrit (Bld) [Volume fraction] 35.2 % Low 36.0-46.0 [facility] Comment on above: Performed By: #### C BC #### [address] [address] Hemoglobin (Bld) [Mass/Vol] 11.9 g/dL Low 12.0-16.0 [facility] Comment on above: Performed By: #### C BC #### [address] [address] MCH (RBC) [Entitic mass] 28.6 pg Normal 27.0-35.0 [facility] Comment on above: Performed By: #### C BC #### [address] [address] MCHC (RBC) [Mass/Vol] 33.9 % Normal 31.0-37.0 [facility] Comment on above: Performed By: #### C BC #### [address] [address] MCV (RBC) [Entitic vol] 84.4 fL Normal 80.0-100.0 [facility] Comment on above: Performed By: #### C BC #### [address] [address] Platelet mean volume (Bld) [Entitic vol] 11.6 fL High 6.7-10.6 [facility] Comment on above: Performed By: #### C BC #### [address] [address] Platelets (Bld) [#/Vol] 94 x10*3/mcL Low 150-350 [facility] Comment on above: Performed By: #### C BC #### [address] [address] RBC (Bld) [#/Vol] 4.17 x10*6/mcL Normal 3.80-5.20 [facility] Comment on above: Performed By: #### C BC #### [address] [address] WBC (Bld) [#/Vol] 10.0 x10*3/mcL Normal 4.5-11.0 [facility] Comment on above: Performed By: #### C BC #### [address] [address] [facility] Albumin [Mass/Vol] 4.3 g/dL Normal 3.2-4.9 [facility] Comment on above: Result Comment: [facility] Laboratory updated the methodology used for albumin testing on 02/06/18. Albumin measurement was performed using a bromcresol purple dye-binding assay. Performed By: #### C OMP #### [address] [address] Albumin/Globulin [Mass ratio] 1.3 {ratio} Normal 1.1-2.2 [facility] Comment on above: Performed By: #### C OMP #### [address] [address] Alk Phos 143 IU/L High 32-91 [facility] Comment on above: Performed By: #### C OMP #### [address] [address] ALT [Catalytic activity/Vol] 74 U/L High 14-54 [facility] Comment on above: Performed By: #### C OMP #### [address] [place] [address] Anion gap [Moles/Vol] 15 mmol/L Normal 7-17 [facility] Comment on above: Performed By: #### C OMP #### [address] [place] [address] AST [Catalytic activity/Vol] 47 U/L High 15-41 [facility] Comment on above: Performed By: #### C OMP #### [address] [address] Bili Total 0.4 mg/dL Normal 0.3-1.2 [facility] Comment on above: Performed By: #### C OMP #### [address] [address] Calcium [Mass/Vol] 9.2 mg/dL Normal 8.5-10.3 [facility] Comment on above: Performed By: #### C OMP #### [address] [address] Chloride [Moles/Vol] 99 mmol/L Normal 98-110 [facility] Comment on above: Performed By: #### C OMP #### [address] [address] CO2 [Moles/Vol] 25 mmol/L Normal 22-32 [facility] Comment on above: Performed By: #### C OMP #### [address] [address] Creatinine [Mass/Vol] 0.83 mg/dL Normal 0.44-1.03 [facility] Comment on above: Performed By: #### C OMP #### [address] [place] [address] Glucose [Mass/Vol] 90 mg/dL Normal 70-99 [facility] Comment on above: Performed By: #### C OMP #### [address] [place] [address] Potassium [Moles/Vol] 3.4 mmol/L Normal 3.4-4.8 [facility] Comment on above: Performed By: #### C OMP #### [address] [address] Protein [Mass/Vol] 7.7 g/dL Normal 6.5-8.1 [facility] Comment on above: Performed By: #### C OMP #### [address] [address] Sodium [Moles/Vol] 136 mmol/L Normal 133-142 [facility] Comment on above: Performed By: #### C OMP #### [address] [address] Urea nitrogen [Mass/Vol] 15 mg/dL Normal 8-26 [facility] Comment on above: Performed By: #### C OMP #### [address] [address] Urea nitrogen/Creatinine [Mass ratio] 18.1 mg/mg Normal 10.0-20.0 [facility] Comment on above: Performed By: #### C OMP #### [address] [address] Diff Autoon 12-02-2019 Baso Absolute 0.0 x10*3/mcL Normal 0.0-0.[address] [facility] Comment on above: Performed By: #### . Automated Diff #### [address] [address] Basophils/100 WBC (Bld) 0.4 % Normal 0.0-1.5 [facility] Comment on above: Performed By: #### . Automated Diff #### [address] [address] Eos Absolute 0.4 x10*3/mcL Normal 0.0-0.4 [facility] Comment on above: Performed By: #### . Automated Diff #### [address] [address] Eosinophils/100 WBC (Bld) 3.7 % Normal 0.0-5.4 [facility] Comment on above: Performed By: #### . Automated Diff #### [address] [address] Lymphocytes (Bld) [#/Vol] 3.2 x10*3/mcL Normal 1.0-4.8 [facility] Comment on above: Performed By: #### . Automated Diff #### [address] [address] Lymphocytes/100 WBC (Bld) 31.5 % Normal 27.2-40.8 [facility] Comment on above: Performed By: #### . Automated Diff #### [address] [address] [place] Absolute 0.4 x10*3/mcL Normal 0.1-1.[address] [facility] Comment on above: Performed By: #### . Automated Diff #### [address] [address] Monocytes/100 WBC (Bld) 4.2 % Normal 3.7-11.9 [facility] Comment on above: Performed By: #### . Automated Diff #### [address] [address] Neutro Absolute 6.0 x10*3/mcL Normal 1.8-7.7 [facility] Comment on above: Performed By: #### . Automated Diff #### [address] [address] Neutro Auto 60.2 % Normal 47.2-70.8 [facility] Comment on above: Performed By: #### . Automated Diff #### [address] [address] ED Clinical Summaryon 2019 ED Clinical Summary [address] [address] ED Clinical Summary Person Information Name: Farideh Peoples [place] Age: 34 Years : 1985 Sex: Female PCP: Marital Status: Single Phone: Race: White Ethnicity: Not or Language: [place] Visit Reason: Drug withdrawal; Drug withdrawal Acuity: 3 Enc Type: Observation Med Service: X Medication Withdrawal Management Arrival: 12/02/2019 03:53:05 Discharge: LOS: 000 04:16 Checkin: 12/02/2019 03:53:05 Checkout: 12/02/2019 08:09:13 Dispo Type: Place in Observation Address: [address] [place] [address] Provider Notes: Diagnosis: 1:Heroin addiction Problems No [...] range between ( 27.2 and 40.8 ) [place] Auto: 4.2 % -- Normal range between [...] range between ( 36.0 and 46.0 ) [place] Absolute: 0.4 x10 MCH: 28.6 pg -- [...] EDT, Medical/Surgical 5th floor Patient Education Information: [facility] Poison Help line: . [facility] Hotline: [place] Tobacco Quit Line: [place], [place]) [address]: [phone] [place], [place]) [address]: [phone] [facility] [address] [place], [place]: [phone] [facility] ED Note-Physicianon 12-02-19 ED Note-Physician seen by psychotherapist social worker, admitted to [facility] program Electronically signed by Nakita YEAGER, Benita Pickett 12/02/19 08:16 EDT Normal [facility] ED Note-Physician Chief Complaint Patient reports she [...] 04:43 60.2 Lymph Auto 12/02/19 04:43 31.5 [place] Auto 12/02/19 04:43 4.2 Eos Auto 12/02/19 04:43 3.7 Basophil Auto 12/02/19 04:43 0.4 Neutro Absolute 12/02/19 04:43 6.0 Lymph Absolute 12/02/19 04:43 3.2 [place] Absolute 12/02/19 04:43 0.4 Eos Absolute 12/02/19 [...] Nestor Mckeon MD 12/02/19 19:07 EDT Normal [facility] Ethanolon 12-02-2019 Ethanol [Mass/Vol] mg/dL Normal <=9 [facility] Comment on above: Result Comment: To c onvert mg/dL to g/dL, divide result by 1,000. Legal limit of intoxication is 80 mg/dL (0.08 g/dL). Performed By: #### A LC #### [address] [address] Fentanyl Scn without Confirm , Uron 12-02-2019 Ur Fentanyl Scrn Presumptive Pos Abnormal NEG <1.0 [facility] Comment on above: Result Comment: Urin e sample is presumptive positive for fentanyl. [employer] Fentanyl Urine Enzyme Immunoassay provides only [...] Performed By: #### . Automated Diff #### [address] [address] Ur Fentanyl Scrn Qnt 3.03 ng/mL High <=0.99 [facility] Comment on above: Performed By: #### . Automated Diff #### [place] [id number] HIV1/2 Ab,Ag Scnon 0 HIV-1/2 Ab,Ag 0.21 Normal [facility] Comment on above: Performed By: #### . Automated Diff #### [place] [address] HIV-1/2 Ab,Ag Interp Normal Negative [facility] Comment on above: Result Comment: N egative Negative Performed By: #### . Automated Diff #### [place] [address] Hep Scrn Chron 12-02-2019 HCV Signal to Cutoff Ratio 36.20 Normal [facility] Comment on above: Performed By: #### . Automated Diff #### [place] [address] Hep B Surface Antibody Interp Negative Normal [facility] Comment on above: Result Comment: Helga ent is considered to be not immune to infection. Performed By: #### . Automated Diff #### [place] [address] Hep Bs Ab <5.0 Normal [facility] Comment on above: Performed By: #### . Automated Diff #### [place] [address] Hep Bs Ag Interp Normal Negative [facility] Comment on above: Result Comment: Ne gative Negative Performed By: #### . Automated Diff #### [place] [address] Hep C IgG Interp Abnormal Negative [facility] Comment on above: Result Comment: Re [...] Performed By: #### . Automated Diff #### [facility] [address] [place] [address] History and Physicalon 12-01 History and Physical [...] Care Directive: unknown Health Care Power of Manager Water [employer] or next of kin: unknown Family Updated: [...] Oral, QID, PRN cloNIDine, 0.1 mg, Oral, [id number] Times cloNIDine, 0.2 mg, Oral, [id number] Times cloNIDine, 0.1 mg, Oral, q4hr, PRN [...] by Nhi Posada 12/02/19 11:58 EDT Normal [facility] RPR Screenon 12-02-2019 RPR Ql Non-Reactive Normal Non-Reactive [facility] Comment on above: Performed By: #### . Automated Diff #### [facility] [address] [place] [address] TSHon 12-02-2019 TSH Qn 3.77 mcIU/mL Normal 0.45-5.33 [facility] Comment on above: Result Comment: Refe rence Ranges for individuals from to 18 years of age were obtained from The Kathryn Cortes Handbook (20 ed) published by [facility]. Reference Ranges for Females: Females, 1st Trimester 0.05 ? 3.7 uIU/mL Females, 2nd Trimester 0.31 ? 4.35 uIU/mL Females, 3rd Trimester 0.41 ? 5.18 uIU/mL Performed By: #### T SH #### [address] [address] UDS Compon 12-02-2019 UA pH 5.0 Normal 4.5 - 7.8 [facility] Comment on above: Performed By: #### C [id number] #### [address] [address] UA Spec Grav 1.029 Normal 1.003-1.035 [facility] Comment on above: Performed By: #### C [id number] #### [address] [address] Creatinine [Mass/Vol] 351.3 mg/dL Normal [facility] Comment on above: Performed By: #### C [id number] #### [address] [address] Ur Amph Scrn Negative Normal NEG = <1000 [facility] Comment on above: Performed By: #### C [id number] #### [address] [address] Ur Reyna Scrn Negative Normal NEG = <200 [facility] Comment on above: Performed By: #### C [id number] #### [address] [place] [address] Ur Benzodia Scrn Negative Normal NEG = <[address] [facility] Comment on above: Performed By: #### C [id number] #### [address] [address] Ur Cannab Scrn Negative Normal NEG = <50 [facility] Comment on above: Performed By: #### C [id number] #### [address] [address] Ur Cocaine Scrn Negative Normal NEG = <300 [facility] Comment on above: Performed By: #### C [id number] #### [address] [address] Ur Methadone Scn Negative Normal NEG = <[address] [facility] Comment on above: Performed By: #### C [id number] #### [address] [address] Ur Opiate Scrn Positive Abnormal NEG = <300 [facility] Comment on above: Result Comment: This unconfirmed positive screening result is to be used for medical treatment purposes only. Unconfirmed screening results must not be used for non-medical purposes. (e.g. employment testing, legal testing). Performed By: #### C [id number] #### [place] [id number] Ur Oxy Screen Negative Normal NEG = <100 [facility] Comment on above: Performed By: #### C [id number] #### [address] [address] Ur Oxy Scrn Qnt 24 ng/mL Normal <=99 [facility] Comment on above: Performed By: #### C [id number] #### [address] [address] Ur PCP Scrn Negative Normal NEG = <25 [facility] Comment on above: Performed By: #### C [id number] #### [address] [address] UDS Comp/Con 12-02-2019 Creatinine [Mass/Vol] 45.1 mg/dL Normal [facility] Comment on above: Performed By: #### . Automated Diff #### [address] [address] Ur Amph Scrn w/Conf Negative Normal NEG = <1000 [facility] Comment on above: Performed By: #### . Automated Diff #### [address] [address] Ur Reyna Scrn w/Conf Negative Normal NEG = <200 [facility] Comment on above: Performed By: #### . Automated Diff #### [address] [address] Ur Benzodia Scrn w/Conf Negative Normal NEG = <200 [facility] Comment on above: Performed By: #### . Automated Diff #### [address] [address] Ur Cannab Scrn w/Conf Negative Normal NEG = <50 [facility] Comment on above: Performed By: #### . Automated Diff #### [address] [address] Ur Cocaine Scrn w/Conf Negative Normal NEG = <300 [facility] Comment on above: Performed By: #### . Automated Diff #### [address] [address] Ur Methadone Scrn w/Conf Negative Normal NEG = <300 [facility] Comment on above: Performed By: #### . Automated Diff #### [address] [address] Ur Opiate Scrn w/Conf Positive Abnormal NEG = <300 [facility] Comment on above: Result Comment: This unconfirmed positive screening result is to be used for medical treatment purposes only. Confirmation testing will be performed using an alternate method. Performed By: #### . Automated Diff #### [address] [address] Ur Oxy Screen w/Conf Negative Normal NEG = <100 [facility] Comment on above: Performed By: #### . Automated Diff #### [address] [address] Ur Oxy Scrn Qnt w/Confirm 2 ng/mL Normal <=99 [facility] Comment on above: Performed By: #### . Automated Diff #### [address] [address] Ur PCP Scrn w/Conf Negative Normal NEG = <25 [facility] Comment on above: Performed By: #### . Automated Diff #### [address] [address] UA pH 6.0 Normal 4.5 - 7.8 [facility] Comment on above: Performed By: #### . Automated Diff #### [address] [address] UA Spec Grav 1.004 Normal 1.003-1.035 [facility] Comment on above: Performed By: #### . Automated Diff #### [facility] [address] [place] [address] Encounters Encounter Date Encounter Type Care Provider Facility Start: 01-07-2024 End: 01-07-2024 ambulatory HARSH CHAVEZ Not Available Start: 11-06-2023 End: 11-06-2023 ambulatory MACHO BUTLER Not Available Start: 09-12-2023 Refill Rony J Cast illo CERAMIC DESIGNER-LAUNDRY PRESSER Work Phone: [facility] Comment on above: Lumbar back pain wit h radiculopathy affecting left lower extremity; Vitamin D deficiency Start: 08-14-2023 Refill Rony J Cast illo CERAMIC DESIGNER-LAUNDRY PRESSER Work Phone: [facility] Comment on above: Lumbar back pain wit h radiculopathy affecting left lower extremity Start: 08-06-2023 Refill Rony J Cast illo CERAMIC DESIGNER-LAUNDRY PRESSER Work Phone: [facility] Start: 02-21-2023 End: 02-22-2023 ambulatory RONYLamonte COX Facility:[facility] Start: 02-21-2023 End: 02-21-2023 Patient encounter procedure Li Deutsch [facility] Start: 01-24-2023 ambulatory RONYLamonte COX Facili ty:[facility] Start: 09-19-2022 End: 09-19-[address] JOSE AGUILAR . Facility:[facility] Start: 07-12-2022 End: 07-12-2022 ambulatory NONE LISTED REQUEST Facility:[facility] Start: 07-10-2022 End: 07-10-2022 ambulatory NONE LISTED REQUEST Facility:[facility] Start: 06-08-2022 End: 06-08-2022 ambulatory NONE LISTED REQUEST Facility:[facility] Start: 11-23-2021 End: 11-23-[address] NONE LISTED REQUEST Facility: Start: 10-27-2020 End: 10-28-2020 ambulatory [facility] Start: 10-27-2020 End: 10-27-2020 Subsequent hospital visit by physician [facility] Start: 10-27-2020 End: 10-28-2020 ambulatory [facility] Start: 10-27-2020 End: 10-27-2020 Subsequent hospital visit by physician [facility] Start: 06-03-2020 End: 2020 ambulatory [facility] Start: 06-03-2020 End: 06-03-2020 Subsequent hospital visit by physician [facility] Start: 05-12-2020 End: 05-13-2020 ambulatory [facility] Start: 05-12-2020 End: 05-12-2020 Subsequent hospital visit by physician [facility] Start: 05-11-2020 End: 05-12-2020 ambulatory [facility] Start: 05-11-2020 End: 05-11-2020 Subsequent hospital visit by physician [facility] Start: 12-02-2019 End: 12-03-2019 Patient encounter procedure Gerson Sheppard Facility:[facility] Procedures Date Procedure Procedure Detail Performing Clinician Start: 06-14-2023 Adult depression scr eening assessment Rony Cox CERAMIC DESIGNER-LAUNDRY PRESSER Work Phone: Start: 10-27-2020 Antibody hiv-1&hiv-2 single result Diego Hernandez CERAMIC DESIGNER - LAUNDRY PRESSER Work Phone: Start: 10-27-2020 Comprehensive metabo lic panel Diego Hernandez CERAMIC DESIGNER - LAUNDRY PRESSER Work Phone: Start: 10-27-2020 IMMATURE PLATELET FRACTION Diego Hernandez CERAMIC DESIGNER - LAUNDRY PRESSER Work Phone: Start: 05-12-2020 Antibody hiv-1&hiv-2 single result DIEGO HERNADNEZ Start: 05-12-2020 Blood count complete automated DIEGO HERNANDEZ Start: 05-12-2020 Iadna hepatitis c qu ant & reverse .net developer DIEGO HERNANDEZ Start: 05-12-2020 Acute hepatitis panel E chucky Hernandez Work Phone: Start: 05-12-2020 Antibody hiv-1&hiv-2 single result Diego Hernandez Work Phone: Start: 05-12-2020 Blood count complete automated Diego Hernandez Work Phone: Start: 05-12-2020 Comprehensive metabo lic panel Diego Hernandez Work Phone: Start: 05-12-2020 Gonadotropin chorion ic qualitative Diego Hernandez Work Phone: Start: 05-12-2020 IMMATURE PLATELET FRACTION Diego Hernandez Work Phone: Plan of Treatment Date Care Activity Detail Author Start: 07-11-2024 Tobacco Counseling Tobacco Counselin g [facility] Start: 06-14-2024 Adult BMI Follow Up Plan Adult BMI Follow Up Plan [facility] Start: 06-14-2024 Adult BMI Screening Adult BMI Screen ing [facility] Start: 06-14-2024 Depression Screening Depression Scre ening [facility] Start: 06-14-2024 Tobacco Screening Tobacco Screening [facility] Start: 03-02-2023 Influenza vaccination Influenza Vacc ine [facility] Start: 03-02-2021 Influenza vaccination Flu vacc ine (Season Ended[facility] Work [facility]: Start: 03-02-2020 Influenza vaccination Flu vaccine (# 1) [place], [place] Start: 12-21-2019 DTaP,Tdap and Td Vaccines (2 - Td or Tdap) DTaP,Tdap and Td Vaccines (2 - Td or Tdap) [facility] Start: 2008 Screening for malign ant neoplasm of cervix Pap Smear [facility] Start: 2003 COVID-19 Vaccine (1) COVID-19 Vaccin e (1) [facility] Work Phone: End: 05-12-2020 Hepatitis C RNA, quantitative, PCR Hepatitis C RNA, quantitative, PCR Lab Routine Once for 1 Occurrences starting 05/12/2020 until 05/12/2020 [place] Comment on above: Once for 1 Occurrenc es starting 05/12/2020 until 05/12/2020 Hepatitis C RNA, quantitative, PCR [facility] [place] [place] End: 10-27-2020 Hepatitis C RNA, quantitative, PCR Hepatitis C RNA, quantitative, PCR Lab Routine Once for 1 Occurrences starting 10/27/2020 until 10/27/2020 [facility] Work Phone: Comment on above: Once for 1 Occurrenc es starting 10/27/2020 until 10/27/2020 Immunizations Immunization Date Immunization Notes Care Provider Jordan walter 12-20-2009 tetanus toxoid, redu jarrett diphtheria toxoid, and acellular pertussis vaccine, adsorbed [facility] Payers Date Payer Category Payer Medicaid [facility] MEDICAID [facility] MEDICAID [id number] 2022-Present [address] [place] [address] [id number] 2019 Unknown 2018 Unknown [id number] 1987 Unknown [id number] 1987 Unknown [id number] 1987 Unknown [id number] 1987 Unknown [id number] 1987 Unknown [id number] 1987 Unknown [id number] 1987 Unknown [id number] 1987 Unknown [id number] 1987 Unknown [id number] 1987 Unknown [id number] 1987 Unknown [id number] 1987 Unknown [id number] 1957 Medicaid [id number] 1959 Unknown [id number] 1959 Unknown [id number] Social History Date Type Detail Facility Tobacco smoking stat [facility] Unknown if ever smoked [place], [place] Start: 1985 Sex Assigned At Not on file [place], [place] Tobacco smoking status No Smokin g Status Entered [facility] Start: 08-12-2020 End: 06-14-2023 Sex Assigned At Female [facility] Start: 11-06-2022 [facility] History of tobacco use Cigarette Smoker P [facility] Start: 08-12-2020 End: 11-06-2022 Cigarettes smoked current (pack per day) - Reported 0.5 [facility] Start: 11-06-2022 Tobacco use and exposure Smokeless tobacco non-user [facility] Start: 06-14-2023 Alcohol intake Ex-drinker (finding) [facility] How hard is it for y ou to pay for the very basics like food, housing, medical care, and heating Hard [facility] Adolescent depressio n screening assessment 0 [facility] Clinical Note 06-08-2022 Note Date & Type [...] authenticated by: EMILIANA HAWKINS Date: 2022-06-08 20:45 [facility] Evaluation + Plan note Note Date & Type Note Facility Evaluation + Plan note No data available for this section [facility] Evaluation note Note Date & Type Note Facility Evaluation note Diagnosis Lumbar back pain with radiculopathy affecting left lower extremity documented in this encounter [facility] Evaluation note Note Date & Type Note Facility Evaluation note Diagnosis Lumbar back pain with radiculopathy affecting left lower extremity Vitamin D deficiency documented in this encounter [facility] Hospital Discharge instructions Note Date & Type Note Facility Hospital Discharge instructions No data available for this section [facility] Instructions Note Date & Type Note Facility Instructions Not on filedocumented in this en counter [facility] Instructions Note Date & Type Note Facility Instructions Not on filedocumented in this en counter [facility] Instructions Note Date & Type Note Facility Instructions Not on filedocumented in this en counter [facility] Progress note Note Date & Type Note Facility Progress note No data available for this section [facility] Summary Purpose Family History No Family History Records FoundNo Family History Records FoundNo Family History Records FoundNo Family History Records FoundNo Family History Records Found Advance Directives No Advanced Directives Records FoundNo Advanced Directives Records FoundNo Advanced Directives Records FoundNo Advanced Directives Records FoundNo Advanced Directives Records Found Hospital Course Note Admission Information Tara t: Farideh Carla Ponceterry : 1985 Admission date: 12/02/2019 Discharge date: 12/03/2019 CODE STATUS: Full code PCP: unknown Consult: [employer] Sand [employer] Diagnoses: 1. Heroin addiction 2. Tobacco user [...] days. Patient is to follow-up tomorrow with [facility]'s case hardener and has further follow-up appointments to schedule her outpatient Vivitrol injection. All questions have been answered patient is being (more content not included)... Additional Source Comments INFORMATION SOURCE (unrecogn ized section and content) DATE CREATED AUTHOR 01/27/2020 [facility] DATE CREATED AUTHOR AUTHOR'S ORGANIZ ATION 11/02/2020 [facility] DATE CREATED AUTHOR AUTHOR'S ORGANIZ ATION 10/03/2022 [facility] DATE CREATED AUTHOR AUTHOR'S ORGANIZ ATION 02/22/2023 [facility] DATE CREATED AUTHOR AUTHOR'S ORGANIZ ATION 02/06/2024 [facility] dical Specialists EPIC Patient Care team informatio n (unrecognized section and content) Seafood Manager Relationship Specialty Start Date End Date Rony Cox, DANA-LAUNDRY PRESSER [address] [place] [address] PCP - General Family Medicine 11/03/22 Seafood Manager Relationship Specialty Start Date End [facility] [address] [place] [address] PCP - General Family [facility] 11/03/22 Seafood Manager Relationship Specialty Start Date End Date [facility] [address] [place] [address] PCP - General Family Medicine 11/03/22 Reason [...] BE BASED ON THE PRIMARY CLINICAL RECORDS. [facility] [employer] [facility]. provides no warranty or guarantee of the accuracy or completeness of information in this document.
--- NOTE | 2024-05-02 12:57 | XR_ITS ---
The [address] [address] Patient Name: TORY HSU MRN: [id number] date: 1985 Sex: F Assigned Patient Location: ER Current Patient Location: ER Accession/Order Number: [id number] Exam Date: 05/02/2024 13:00 Report Date: 05/02/2024 13:23 At the request of: ANNE-MARIE WONG Procedure: XR chest 1V EXAMINATION: XR chest 1V HISTORY: cough COMPARISON: 07/07/2021 TECHNIQUE: AP portable FINDINGS: LUNGS: Moderate right basilar infiltrate obscuring the hemidiaphragm. The left lung is clear VASCULATURE: No increased pulmonary vasculature. PLEURA: No pneumothorax, effusion, or pleural thickening. CARDIAC: No cardiomegaly or cardiac silhouette abnormality. MEDIASTINUM: No visible mass or adenopathy. BONES: No fracture or visible bone lesion. OTHER: Negative. XR/XR chest 1V IMPRESSION: Right lower lobe pneumonia Electronically authenticated by: GAMA ALLISON Date: 05/02/2024 13:23
[2024-05-02 13:02] LABS: Basophils Absolute Auto 0.1 10^3/uL (0.0-0.1); Basophils Percent Auto 0.4 % (0.2-2.0); Eosinophils Absolute Auto 0.2 10^3/uL (0.0-0.7); Eosinophils Percent Auto 1.4 % (0.9-7.0); Hemoglobin 13.3 g/dL (12.0-16.0); Immature Granulocytes Abs Auto 0.03 10^3/uL (0.00-0.03); Immature Granulocytes Pct Auto 0.2 % (0.0-0.5); Lymphocytes Absolute Auto 1.3 10^3/uL (1.2-3.8); Lymphocytes Percent Auto 8.9 % (20.5-60.0); Mean Corpuscular HGB Conc 34.1 g/dL (29.9-35.2); Mean Corpuscular Volume 85.2 fL (81.0-99.0); Mean Platelet Volume 12.7 fL (9.5-13.5); Monocytes Absolute Auto 0.7 10^3/uL (0.3-0.8); Monocytes Percent Auto 5.1 % (1.7-12.0); Neutrophils Absolute Auto 12.1 10^3/uL (1.4-6.5); Platelet Count 141 10^3/uL (150-450); Red Blood Count 4.58 10^6/uL (4.20-5.40); Red Cell Distribution Width 14.2 % (11.0-15.0); White Blood Count 14.4 10^3/uL (4.0-11.0)
[2024-05-02 13:10] LABS: Internal Control Within Normal Limits; Strep A Antigen Screen Negative
[2024-05-02 13:17] LABS: Internal Control Within Normal Limits; SARS-CoV-2 Ag NEGATIVE (NEGATIVE)
[2024-05-02 13:24] LABS: Influenza Virus A Antigen Negative; Influenza Virus B Antigen Negative; Internal Control Within Normal Limits
[2024-05-02 13:40] VITALS: BP 180/98; PULSE 118; O2SAT 95
[2024-05-02 13:44] LABS: Alanine Aminotransferase 31 U/L (14-59); Albumin Globulin Ratio 0.9; Albumin Level 3.5 g/dL (3.4-5.0); Alkaline Phosphatase 125 U/L (46-116); Anion Gap 16.8; Aspartate Amino Transferase 20 U/L (15-37); BUN Creatinine Ratio 7.1; Bilirubin Total 0.4 mg/dL (0.2-1.0); Carbon Dioxide 23.5 mmol/L (21.0-32.0); Chloride 102 mmol/L (98-107); Estimated GFR (African America >60 (>=60 mL/min/1.73m^2); Estimated GFR (Non-African Ame >60 (>=60 mL/min/1.73m^2); Globulin 4.1 g/dL; Glucose 105 mg/dL (74-106); Potassium 3.3 mmol/L (3.5-5.1); Sodium 139 mmol/L (136-145); Total Protein 7.6 g/dL (6.4-8.2)
[2024-05-02 13:59] LABS: Lactate/Lactic Acid 1.5 mmol/L (0.4-2.0)
[2024-05-02] MEDS: DOXYCYCLINE MONOHYDRATE 100 MG CAPSULE PO (14:21)
--- NOTE | 2024-05-02 14:50 | ED.GENADUL1 ---
HPI HPI - General Adult General Chief complaint: Upper Respiratory Infection Stated complaint: COUGHING, HEADACHE Time Seen by Provider: 05/02/24 12:56 Source: patient Mode of arrival: walk-in Limitations: no limitations History of Present Illness HPI narrative: The patient is coming to us with almost 4 to 5 days history of cough productive and associated with exposure recently to her son who had pneumonia, the patient denies any fever or chills but she mentioned that she has been having difficulty breathing when walking, also the patient has history of hypertension has not been able to fill her prescription for antihypertensive medication The patient denies any nausea vomiting Related Data Home Medications ?Medication ?Instructions ?Recorded ?Confirmed escitalopram oxalate 10 mg tablet 10 mg PO DAILY 05/08/23 05/08/23 fluticasone propionate 50 2 spray intranasal 05/08/23 mcg/actuation nasal spray,suspension hydrochlorothiazide 12.5 mg tablet 12.5 mg PO DAILY 05/08/23 05/08/23 hydroxyzine pamoate 50 mg capsule 50 mg PO BID PRN anxiety 05/08/23 05/08/23 omega 4-tmf-asy-fish oil 300 1 cap PO BID 05/08/23 05/08/23 mg-1,000 mg capsule (Fish Oil) quetiapine 100 mg tablet 100 mg PO BEDTIME 05/08/23 05/08/23 sumatriptan succinate 50 mg tablet 50 mg PO Q2H PRN migraine headache 05/08/23 05/08/23 Previous Rx's ?Medication ?Instructions ?Recorded hydrocodone 5 mg-acetaminophen 325 1 tab PO Q6H PRN pain #12 tabs 05/08/23 mg tablet ketorolac 10 mg tablet 10 mg PO TID PRN pain #10 tabs 05/08/23 methocarbamol 750 mg tablet 750 mg PO TID PRN pain #20 tabs 05/08/23 doxycycline hyclate 100 mg capsule 100 mg PO BID 7 days #14 caps 05/02/24 hydrochlorothiazide 12.5 mg tablet 12.5 mg PO DAILY #30 tabs 05/02/24 prednisone 20 mg tablet 40 mg (2 x 20 mg) PO DAILY 3 days 05/02/24 #6 tabs Allergies Allergy/AdvReac Type Severity Reaction Status Date / Time Penicillins Allergy Severe Hives Verified 05/02/24 12:40 amoxicillin AdvReac Severe Hives Verified 05/02/24 12:39 Opioid HPI Opioid Management Most Recent Opioid Data: No Data to Display Review of Systems ROS Status of ROS 10 or more systems reviewed and unremarkable except as noted in history and below PFSH PFSH Social History Smoking status: Current every day smoker Little interest or pleasure in doing things: not at all Feeling down, depressed, or hopeless: not at all Exam Narrative Exam Narrative: The patient upon arrival was noted to have tachycardia in addition to the fact that she is having cough there was a concern for possible pneumonia Chest x-ray concerning the diagnosis of pneumonia and the CBC shows leukocytosis Patient have no elevated lactic acid chemistry was within normal The patient was provided with her blood pressure medication hydrochlorothiazide 12.5 mg daily and prescription for the next month She also was started on doxycycline for the next 7 days she was instructed about the importance of hydration and coming back in case of any new symptoms or concerns The patient is to follow up with primary care physician in next 2-3 days or to return to the emergency department should any of the signs or symptoms worsen or new symptoms develop. The patient agrees with the following Diagnosis and Treatment plan and the patient will be discharged home. Constitutional Vital Signs, click to edit/add: Last Vital Signs Temp 99.3 F 05/02/24 12:33 Pulse 118 H 05/02/24 13:40 Resp 18 05/02/24 13:40 BP 180/98 H 05/02/24 13:40 Pulse Ox 95 05/02/24 13:40 Course Vital Signs Vital signs: Vital Signs Temperature 99.3 F 05/02/24 12:33 Pulse Rate 129 H 05/02/24 12:33 Respiratory Rate 20 05/02/24 12:33 Blood Pressure 190/100 H 05/02/24 12:33 Pulse Oximetry 95 05/02/24 12:33 Temperature 99.3 F 05/02/24 12:33 Pulse Rate 118 H 05/02/24 13:40 Respiratory Rate 18 05/02/24 13:40 Blood Pressure 180/98 H 05/02/24 13:40 Pulse Oximetry 95 05/02/24 13:40 Medical Decision Making Lab Data Labs: Lab Results 05/02/24 05/02/24 Range/Units 12:39 12:46 WBC 14.4 H (4.0-11.0) 10^3/uL RBC 4.58 (4.20-5.40) 10^6/uL Hgb 13.3 (12.0-16.0) g/dL Hct 39.0 (36.0-48.0) % MCV 85.2 (81.0-99.0) fL MCH 29.0 (26.7-34.0) pg MCHC 34.1 (29.9-35.2) g/dL RDW 14.2 (11.0-15.0) % Plt Count 141 L (150-450) 10^3/uL MPV 12.7 (9.5-13.5) fL Neut % (Auto) 84.0 H (43.0-75.0) % Lymph % (Auto) 8.9 L (20.5-60.0) % [place] % (Auto) 5.1 (1.7-12.0) % Eos % (Auto) 1.4 (0.9-7.0) % Baso % (Auto) 0.4 (0.2-2.0) % Neut # (Auto) 12.1 H (1.4-6.5) 10^3/uL Lymph # (Auto) 1.3 (1.2-3.8) 10^3/uL [place] # (Auto) 0.7 (0.3-0.8) 10^3/uL Eos # (Auto) 0.2 (0.0-0.7) 10^3/uL Baso # (Auto) 0.1 (0.0-0.1) 10^3/uL Abs Immat Gran (auto) 0.03 (0.00-0.03) 10^3/uL Imm/Tot Granulo (auto) 0.2 (0.0-0.5) % Sodium 139 (136-145) mmol/L Potassium 3.3 L (3.5-5.1) mmol/L Chloride 102 (98-107) mmol/L Carbon Dioxide 23.5 (21.0-32.0) mmol/L Anion Gap 16.8 BUN 6.0 L (7.0-18.0) mg/dL Creatinine 0.85 (0.55-1.02) mg/dL Est GFR ( Amer) >60 (>=60 mL/min/1.73m^2) Est GFR (Non-Af Amer) >60 (>=60 mL/min/1.73m^2) BUN/Creatinine Ratio 7.1 Glucose 105 (74-106) mg/dL Lactate 1.5 (0.4-2.0) mmol/L Calcium 9.0 (8.5-10.1) mg/dL Total Bilirubin 0.4 (0.2-1.0) mg/dL AST 20 (15-37) U/L ALT 31 (14-59) U/L Alkaline Phosphatase 125 H (46-116) U/L Total Protein 7.6 (6.4-8.2) g/dL Albumin 3.5 (3.4-5.0) g/dL Globulin 4.1 g/dL Albumin/Globulin Ratio 0.9 Influenza Type A Ag Negative Influenza Type B Ag Negative SARS-CoV-2 Ag (CV2AG) Negative (NEGATIVE) Streptococcus Screen Negative Discharge Plan Discharge Chief Complaint: Upper Respiratory Infection Clinical Impression: Pneumonia Patient Disposition: Home, Self-Care Time of Disposition Decision: 14:14 Condition: Good Prescriptions / Home Meds: New doxycycline hyclate 100 mg capsule 100 mg PO BID 7 Days Qty: 14 0RF prednisone 20 mg tablet 40 mg PO DAILY 3 Days Qty: 6 0RF hydrochlorothiazide 12.5 mg tablet 12.5 mg PO DAILY Qty: 30 0RF No Action hydrochlorothiazide 12.5 mg tablet 12.5 mg PO DAILY escitalopram oxalate 10 mg tablet 10 mg PO DAILY fluticasone propionate 50 mcg/actuation spray,suspension 2 spray INTRANASAL hydroxyzine pamoate 50 mg capsule 50 mg PO BID PRN (Reason: anxiety) omega 2-byn-wod-fish oil [Fish Oil] 300-1,000 mg capsule 1 cap PO BID quetiapine 100 mg tablet 100 mg PO BEDTIME sumatriptan succinate 50 mg tablet 50 mg PO Q2H PRN (Reason: migraine headache) hydrocodone-acetaminophen 5-325 mg tablet 1 tab PO Q6H PRN (Reason: pain) Qty: 12 0RF Rx Instructions: DX: M54.5 ketorolac 10 mg tablet 10 mg PO TID PRN (Reason: pain) Qty: 10 0RF methocarbamol 750 mg tablet 750 mg PO TID PRN (Reason: pain) Qty: 20 0RF Print Language: Slovenian Instructions: Community Acquired Pneumonia (DC) Referrals: RONY SHARMA [Primary Care Provider] - 1 week Discharge Date/Time: 05/02/24 14:25
== END 2024-05-02 14:25 | disposition home or self-care (01) ==
PROVIDERS: Emergency Provider Emergency Medicine; PCP Nurse Practitioner
DX: J18.9 Pneumonia, unspecified organism (principal); I10 Essential (primary) hypertension; F17.200 Nicotine dependence, unspecified, uncomplicated
CPT/HCPCS: 36415; 71045; 80053; 83605; 85025; 87070; 87502; 87804; 87811; 87880; 99284

== ENCOUNTER 2024-09-01 09:33 | Outpatient (OUT) | payer MEDICAID, SELFPAY ==
--- NOTE | 2024-09-01 09:41 | ECG_ITS ---
The [facility] Test Date: 2024-09-01 Pat Name: TORY HSU Department: Room: - Gender: Female Burr Bench Hand: : 1985 Requested By: HARSH CHAVEZ Order Number: [id number] Reading MD: AFIA WESTBROOK M.D. Measurements Intervals [place] Rate: 90 P: 35 WV: 162 QRS: 76 QRSD: 98 T: 54 QT: 377 QTc: 462 Interpretive Statements SINUS RHYTHM No previous ECG available for comparison Electronically Signed On 09-02-2024 13:04:38 EST by AFIA WESTBROOK M.D.
[2024-09-01 11:21] LABS: Anion Gap 11.9; BUN Creatinine Ratio 19.5; Calcium 8.9 mg/dL (8.5-10.1); Carbon Dioxide 26.1 mmol/L (21.0-32.0); Chloride 104 mmol/L (98-107); Estimated GFR (African America >60 (>=60 mL/min/1.73m^2); Estimated GFR (Non-African Ame >60 (>=60 mL/min/1.73m^2); Glucose 88 mg/dL (74-106); Sodium 138 mmol/L (136-145)
== END 2024-09-01 09:34 | disposition home or self-care (01) ==
LOC: PST 09:34
PROVIDERS: PCP Nurse Practitioner; Visit Provider Obstetrics & Gynecology
DX: Z01.810 Encounter for preprocedural cardiovascular examination (principal); Z01.812 Encounter for preprocedural laboratory examination; R10.2 Pelvic and perineal pain
CPT/HCPCS: 36415; 80048; 93005

== ENCOUNTER 2024-09-12 09:09 | Day surgery (SDC) | payer MEDICAID, SELFPAY ==
[2024-09-01 10:31] VITALS: BP 152/101; PULSE 99; TEMP 36.4; O2SAT 94; BMI 41.2
[2024-09-12] VITALS (11 sets, daily range): BP systolic 113–161; BP diastolic 78–98; PULSE 100–113; TEMP 36.2–36.7; O2SAT 92–97; BMI 41.1
[2024-09-12 09:21] LABS: Basophils Absolute Auto 0.1 10^3/uL (0.0-0.1); Basophils Percent Auto 0.5 % (0.2-2.0); Eosinophils Absolute Auto 0.3 10^3/uL (0.0-0.7); Eosinophils Percent Auto 2.1 % (0.9-7.0); Hematocrit 43.7 % (36.0-48.0); Hemoglobin 14.6 g/dL (12.0-16.0); Immature Granulocytes Abs Auto 0.09 10^3/uL (0.00-0.03); Immature Granulocytes Pct Auto 0.6 % (0.0-0.5); Lymphocytes Absolute Auto 3.1 10^3/uL (1.2-3.8); Lymphocytes Percent Auto 20.9 % (20.5-60.0); Mean Corpuscular HGB Conc 33.4 g/dL (29.9-35.2); Mean Corpuscular Hemoglobin 29.3 pg (26.7-34.0); Mean Corpuscular Volume 87.8 fL (81.0-99.0); Mean Platelet Volume 11.6 fL (9.5-13.5); Monocytes Absolute Auto 0.7 10^3/uL (0.3-0.8); Monocytes Percent Auto 4.9 % (1.7-12.0); Neutrophils Absolute Auto 10.6 10^3/uL (1.4-6.5); Platelet Count 255 10^3/uL (150-450); Red Blood Count 4.98 10^6/uL (4.20-5.40); Red Cell Distribution Width 15.1 % (11.0-15.0); White Blood Count 14.9 10^3/uL (4.0-11.0)
--- OUTSIDE RECORDS SUMMARY | 2024-09-12 09:26 | XMS_ITS | CCD ---
Author Organization [facility] Care Team Providers Care First Assistant Manager Name Role Phone Gerson Sheppard Admitting [...] Admitting Unavailable ASHLIE ., JOCE Attending Unavailable AMYCHRUTH ., MICHELLE HURTADO Consulting Unavailabl e EMILIANA HAWKINS Consulting Unavailable REQUEST, NONE LISTED Primary Care Unavaila ble MARKER ., DR SPRAGUE Admitting Unavailable MARKER ., DR SPRAGUE Attending Unavailable MARKER ., DR SPRAGUE Consulting Unavailable SHARON CM Consulting Unavailable KARASIK ., DR GARCIA Admitting Unavailabl e KARJEFFERYK ., DR GARCIA Attending Unavailabl e REQUEST, NONE LISTED Primary Care Unavaila ble KARASIK ., DR GARCIA Consulting Unavailabl e RONY COX Primary Care Physician RONY COX Primary Care Unavailable Li Deutsch Attending Unavailable Rony Villalobos Primary Care Provid er RONY COX Referring Unavailable RONY COX Primary Care Unavailable AURELIO STANLEY Attending Unavailable MACHO BUTLER Attending Unavailable AURELIO STANLEY Attending Unavailable Unavailable Primary Care Provider UnavailRONY Montesinos Attending Unavailable RONY COX Referring Unavailable RONY COX Primary Care Unavailable RONY COX Attending Unavailable RONY COX Referring Unavailable RONY COX Primary Care Unavailable Allergies Allergy Classification Reported Allergen(s) Allergy Type Date of Onset Reaction(s) Facility (1 source) Penicillin Drug Allergy [facility] Repository (20 sources) Penicillins; Translations: [PENICILLINS] Propensity to adverse reactions to drug 7 [facility] (4 sources) Penicillins Drug Intolerance 7 Unknown [facility] Medications Current Medications Medication Drug Class(es) Dates Sig (Normalized) Sig (Original) ARIPiprazole 5 mg oral tablet (20 sources) Atypical Antipsychotic Start: 06-14-2023 End: 07-14-2024 take 1 tablet by mouth in the morning ARIPiprazole (ABILIFY) 5 mg tablet Indications: Bipolar affective disorder, currently depressed, mild ([facility]) Take 1 tablet (5 mg total) by mouth in the morning. 30 tablet 5 07/14/2024 Active Start: 02-21-2023 Abilify Refill s(s) 0 Start Date: 02/21/23 Status: Ordered Peridex (17 sources) Start: 02-21-2023 Peridex Refill (s) 0 Start Date: 02/21/23 Status: Ordered Start: 01-08-2023 End: 09-08-2024 take 15 mL by mouth in the morning chlorhexidine (PERIDEX) 0.12 % solution Indications: Canker sores oral Apply 15 mL to the mouth or throat in the morning and 15 mL before bedtime. 120 mL 1 01/08/2023 09/08/2024 Discontinued (Therapy completed) cholecalciferol 0.05 mg oral capsule (20 sources) Vitamin D Start: 07-15-2024 take 1 capsule by mouth once in the morning cholecalciferol, vitamin D3, (D3-2000) 2,000 units capsule Indications: Vitamin D deficiency Take 1 capsule (2,000 Units total) by mouth in the morning. 30 each 11 07/15/2024 Active Start: 06-14-2023 End: 07-14-2024 take 1 capsule by mouth in the morning cholecalciferol (Vitamin D-3) 125 MCG (5000 UT) capsule Take 1 capsule by mouth in the morning. 09/12/2023 Active docosahexaenoic acid 120 mg / eicosapentaenoic acid 180 mg oral capsule (4 sources) Start: 06-14-2023 take 1 capsule by mouth twice daily omega-3 (Fish Oil) 1000 MG capsule take 1 capsule by mouth twice a day as directed 06/14/2023 Active escitalopram 10 mg oral tablet (20 sources) Serotonin Reuptake Inhibitor Start: 05-01-2023 End: 07-14-2024 take 1 tablet by mouth in the morning escitalopram (LEXAPRO) 10 mg tablet Indications: Bipolar affective disorder, currently depressed, mild (CMS-HCC) Take 1 tablet (10 mg total) by mouth in the morning. 30 tablet 5 07/14/2024 Active Start: 02-21-2023 Lexapro Refill s(s) 0 Start Date: 02/21/23 Status: Ordered fexofenadine hydrochloride 180 mg oral tablet (20 sources) Histamine-1 Receptor Antagonist Start: 06-14-2023 End: 07-14-2024 take 1 tablet by mouth in the morning fexofenadine (SHELLY) 180 mg tablet Indications: Chronic seasonal allergic rhinitis Take 1 tablet (180 mg total) by mouth in the morning. 30 tablet 6 07/14/2024 Active Start: 02-21-2023 Shelly Refill s(s) 0 Start Date: 02/21/23 Status: Ordered hydroCHLOROthiazide 12.5 mg oral tablet (20 sources) Thiazide Diuretic Start: 06-14-2023 End: 07-14-2024 take 1 tablet by mouth once daily hydroCHLOROthiazide (HYDRODIURIL) 12.5 mg tablet Indications: Nephrolithiasis Take 1 tablet (12.5 mg total) by mouth daily. 30 tablet 5 07/14/2024 Active Start: 02-21-2023 hydrochlorothi azide 12.5 mg Cap Refills(s) 0 Start Date: 02/21/23 Status: Ordered hydrOXYzine pamoate 50 mg oral capsule (20 sources) Antihistamine Start: 05-30-2023 End: 07-14-2024 take 1 capsule by mouth twice daily hydrOXYzine pamoate (Vistaril) 50 MG capsule take 1 capsule by mouth twice a day if needed 10/15/2023 Active Start: 02-21-2023 Vistaril Refil ls(s) 0 Start Date: 02/21/23 Status: Ordered lisinopril 20 mg oral tablet (3 sources) Angiotensin Converting Enzyme Inhibitor Start: 09-08-2024 take 1 tablet by mouth in the morning lisinopriL (PRINIVIL,ZESTRIL) 20 mg tablet Indications: Benign essential HTN Take 1 tablet (20 mg total) by mouth in the morning. 30 tablet 6 09/08/2024 Active meloxicam 15 mg oral tablet (20 sources) Nonsteroidal Anti-inflammatory Drug Start: 06-14-2023 End: 07-14-2024 take 1 tablet by mouth in the morning meloxicam (MOBIC) 15 mg tablet Indications: Lumbar back pain with radiculopathy affecting left lower extremity Take 1 tablet (15 mg total) by mouth in the morning. 30 tablet 5 07/14/2024 Active methocarbamol 750 mg oral tablet (20 sources) Muscle Relaxant Start: 06-14-2023 End: 08-11-2024 take 1 tablet by mouth three times daily methocarbamoL (ROBAXIN) 750 mg tablet Indications: Lumbar back pain with radiculopathy affecting left lower extremity TAKE 1 TABLET BY MOUTH THREE TIMES A DAY 90 tablet 2 08/11/2024 Active QUEtiapine 100 mg oral tablet (20 sources) Atypical Antipsychotic Start: 06-14-2023 End: 07-14-2024 take 1 tablet by mouth once daily QUEtiapine (SEROquel) 100 mg tablet Indications: Bipolar affective disorder, currently depressed, mild (CMS-HCC) Take 1 tablet (100 mg total) by mouth nightly. 30 tablet 5 07/14/2024 Active Start: 02-21-2023 Seroquel Refil ls(s) 0 Start Date: 02/21/23 Status: Ordered SUMAtriptan 50 mg oral tablet (20 sources) Serotonin-1b and Serotonin-1d Receptor Agonist Start: 05-01-2023 End: 09-08-2024 SUMAtriptan (IMITREX) 50 mg tablet Indications: Migraine without aura and without status migrainosus, not intractable TAKE 1 TABLET BY MOUTH IF NEEDED AT ONSET OF HEADACHE MAY REPEAT ... (REFER TO PRESCRIPTION NOTES). 9 tablet 2 09/08/2024 Active Start: 02-21-2023 sumatriptan Re fills(s) 0 Start Date: 02/21/23 Status: Ordered Vitamin D3 5000 intl units (125 mcg) oral tab (1 source) Start: 02-21-2023 Vitamin D3 500 0 intl units (125 mcg) oral tab Refills(s) 0 Start Date: 02/21/23 Status: Ordered Completed/Discontinued Medications Medication Drug Class(es) Dates Sig (Normalized) Sig (Original) Fish Oils (18 sources) Start: 06-09-2024 End: 09-08-2024 take 1 capsule by mouth twice daily Fish OiL 300-1,000 mg capsule Indications: Mineral metabolism disorder take 1 capsule by mouth twice a day as directed 30 each 06/09/2024 09/08/2024 Discontinued (Therapy completed) Start: 06-09-2024 take 1 capsule by mo uth twice daily Fish OiL 300-1,000 mg capsule Indications: Mineral metabolism disorder take 1 capsule by mouth twice a day as directed 30 each 06/09/2024 Active Start: 06-14-2023 End: 06-09-2024 take 1 capsule by mouth twice daily Fish OiL 300-1,000 mg capsule Indications: Mineral metabolism disorder take 1 capsule by mouth twice a day as directed 30 each 11 06/14/2023 06/09/2024 Discontinued (Reorder) Start: 06-14-2023 take 1 capsule by mo uth twice daily Fish OiL 300-1,000 mg capsule Indications: Mineral metabolism disorder take 1 capsule by mouth twice a day as directed 30 each 11 06/14/2023 Active Start: 02-21-2023 Fish Oil Refil l(s) 0 Start Date: 02/21/23 Status: Ordered fluticasone propionate 0.05 mg/actuat metered dose nasal spray (16 sources) Corticosteroid Start: 06-14-2023 End: 08-19-2024 take 2 spray(s) nasal route in the morning fluticasone (Flonase) 50 MCG/ACT nasal spray Administer 2 sprays into affected nostril(s) in the morning. 06/14/2023 08/19/2024 Discontinued (Other) Start: 06-14-2023 End: 07-14-2024 take 2 spray(s) nasal route in the morning fluticasone propionate (FLONASE) 50 mcg/actuation nasal spray Indications: Chronic seasonal allergic rhinitis Administer 2 sprays into each nostril in the morning. 16 g 06/09/2024 07/14/2024 Discontinued (Therapy completed) Start: 02-21-2023 Flonase Refill (s) 0 Start Date: 02/21/23 Status: Ordered Problems Active Problems Problem Classification Problem Date Documented Date Episodic/Chronic Abdominal pain (1 source) Pain in female pelvis; Translations: [Pelvic and perineal pain] 08-19-2024 Episodic Diseases of mouth; excluding dental (1 source) Aphthous ulcer of mouth; Translations: [Recurrent oral aphthae] 06-09-2024 Episodic Essential hypertension (3 sources) Benign essential hypertension; Translations: [Essential (primary) hypertension] Onset: 09-08-2024 09-08-2024 Chronic Headache; including migraine (4 sources) Migraine without aura, not refractory ; Translations: [Migraine without aura, not intractable, without status migrainosus] Onset: 07-14-2024 07-14-2024 Chronic Immunizations and screening for infectious disease (1 source) Encounter for screening for human papillomavirus (HPV); Translations: [ENC SCREENING HUMAN PAPILLOMAVIRUS] Onset: 09-23-2022 Episodic Menstrual disorders (4 sources) Menorrhagia; Translations: [Excessive and frequent menstruation with regular cycle] Onset: 01-07-2024 01-07-2024 Chronic Mood disorders (5 sources) Bipolar affective disorder, currently depressed, mild; Translations: [Bipolar disorder, current episode depressed, mild] Onset: 07-14-2024 07-14-2024 Chronic Nutritional deficiencies (6 sources) Vitamin D deficiency; Translations: [Vitamin D deficiency, unspecified] Onset: 07-14-2024 07-14-2024 Chronic Other aftercare (1 source) Other long term acute care registered nurse (current) drug therapy; Translations: [OTH CONCRETER CURRENT DRUG THERAPY] Onset: 07-13-2022 Episodic Other [...] Episodic Other nutritional; endocrine; and metabolic disorders (19 sources) Disorder of mineral metabolism; 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, unspecified] Onset: 09-06-2016 09-18-2022 Chronic Other screening for suspected conditions (not mental disorders or infectious disease) (4 sources) Encounter for screening for malignant neoplasm of cervix; Translations: [ENC SCREENING MALIG NEOPLASM CERV] Onset: 09-19-2022 Episodic Other skin disorders (1 source) Ingrowing nail; Translations: [INGROWING NAIL] Onset: 07-13-2022 Episodic Other upper respiratory disease (2 sources) Seasonal allergic rhinitis; Translations: [Other seasonal allergic rhinitis] 07-14-2024 Chronic Other upper respiratory disease (1 source) Other seasonal allergic rhinitis; Translations: [Other seasonal allergic rhinitis] Onset: 07-14-2024 Chronic Residual codes; unclassified (4 sources) Procedure and [...] Spondylosis; intervertebral disc disorders; other back problems (10 sources) Lumbar radiculopathy; Translations: [Radiculopathy, lumbar region] Onset: 07-14-2024 07-12-2024 Episodic Substance-related disorders (1 source) Nicotine dependence, cigarettes, uncomplicated; Translations: [NICOTINE DEPEND CIGARETTES UNCOMP] Onset: 07-13-2022 Chronic Unclassified (3 sources) LOW BACK PAIN, UNSPECIFIED; Translations: [LOW BACK PAIN, UNSPECIFIED] Onset: 06-12-2022 Unclassified (1 source) discuss medication Onset: 07-14-2024 Past or Other Problems Problem Classification Problem Date Documented Da te Episodic/Chronic Calculus of urinary tract (20 sources) Kidney stone; Translations: [Calculus of kidney] Onset: 08-31-2016 03-13-2019 Episodic E Codes: Natural/environment (1 source) Exposure to other specified factors, initial encounter; Translations: [EXPOSURE OTHER SPEC FACTORS INITIAL] Onset: 11-25-2021 Episodic Fluid and electrolyte disorders (1 source) Hypokalemia; Translations: [HYPOKALEMIA] Onset: 11-25-2021 Episodic Mood disorders (18 sources) Mood disorders Onset: 06-14-2023 06-14-2023 Other injuries and conditions due to external causes (1 source) Other specified injuries of head, initial encounter; Translations: [OTH SPEC INJURIES HEAD INITIAL ENC] Onset: 11-25-2021 Episodic Syncope (4 sources) Syncope and collapse; Translations: [SYNCOPE AND COLLAPSE] Onset: 11-23-2021 Episodic Unclassified (1 source) LOW BACK PAIN, UNSPECIFIED; Translations: [LOW BACK PAIN, UNSPECIFIED] Onset: 06-08-2022 Unclassified (18 sources) Onset: 06-14-2023 Resolved: 09-08-2024 06-14-2023 Urinary tract infections (1 source) Urinary tract infection, site not specified; Translations: [UTI SITE NOT SPECIFIED] Onset: 06-12-2022 Episodic Results Test Name Value Interpretation Reference Range Facil [facility] ECG 12-LEADon 09-03-2024 [place] [address] Electrocardiograph Report Signed Patient: FARIDEH PEOPLES MR#: [id number] : 1985 Acct:[id number] Age/Sex: 39 / F ADM Date: 09/01/24 Loc: [facility] Attending Dr: Aurelio Stanley D.O. Ordering Physician: Aurelio Stanley D.O. 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 Measurements Intervals [place] Rate: 90 P: 35 [place]: 162 QRS: 76 QRSD: 98 T: 54 QT: 377 QTc: 462 Interpretive Statements SINUS RHYTHM No previous ECG available for comparison Electronically Signed On 09-02-2024 13:04:38 EST by AFIA WESTBROOK M.D. Dictated By: AFIA WESTBROOK M.D. Signed By: 09/03/24916 DD/ 38 TD/TT: Pig Farmer: [facility] Radiology, Radiologist, - 09/03/2024 [place] [address] Electrocardiograph Report Signed Patient: FARIDEH PEOPLES MR#: [id number] : 1985 Acct:[id number] Age/Sex: 39 / F ADM Date: 09/01/24 Loc: [facility] Attending Dr: Aurelio Stanley D.O. Ordering Physician: Aurelio Stanley D.O. 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 Measurements Intervals [place] Rate: 90 P: 35 [place]: 162 QRS: 76 QRSD: 98 T: 54 QT: 377 QTc: 462 Interpretive Statements SINUS RHYTHM No previous ECG available for comparison Electronically Signed On 09-02-2024 13:04:38 EST by AFIA WESTBROOK M.D. Dictated By: AFIA WESTBROOK M.D. Signed By: 09/03/24916 DD/ 38 TD/TT: Pig Farmer: [facility] ECG 12-LEADOrdered By: Radio logist Radiology on 09-03-2024 [facility] [employer] Work Phone: ALL BASIC METABOLIC PANELon 09-01-2024 Anion gap [Moles/Vol] 11.9 mmol/L [facility] Calcium [Mass/Vol] 8.9 mg/dL 8.5 - 10. 1 mg/dL [facility] Chloride [Moles/Vol] 104 mmol/L 98 - 107 mmol/L [facility] CO2 [Moles/Vol] 26.1 mmol/L 21.0 - 32.0 mmol/L [facility] Creatinine [Mass/Vol] 0.82 mg/dL 0.55 - 1.02 mg/dL [facility] GFR/1.73 sq M.predicted CKD-EPI (S/P/Bld) [Vol rate/Area] >60 >=60 mL/min/1.73m 2 [facility] Glucose [Mass/Vol] 88 mg/dL 74 - 106 mg/dL [facility] Potassium [Moles/Vol] 4 mmol/L 3.5 - 5.1 mmol/L [facility] Sodium [Moles/Vol] 138 mmol/L 136 - 145 mmol/L [facility] TBH EGFR-NON AF ANGUILLAN >60 >=60 mL/min/1.73m 2 [facility] Urea nitrogen [Mass/Vol] 16 mg/dL 7.0 - 18.0 mg/dL [facility] Urea nitrogen/Creatinine [Mass ratio] 19.5 mg/mg [facility] ECG 12-LEADon 09-01-2024 Radiology Study observation (narrative) [facility] Vitamin D+Metabolites [Mass/ Vol]on 07-14-2024 VITAMIN D 25 HYD TOT 31.6 ng/mL Normal 30-100 [facility] Comment on above: Result Comment: Vitamin D status 25 [place] Vitamin D Deficiency <20 ng/mL Insufficiency 20-29 ng/mL Sufficiency 30-100 ng/mL Toxicity >100 ng/mL NOTE: A pediatric reference range has not been established by the sr. social media & mobile manager of this kit. The [place] [employer] recommends a Vitamin D level of = or >20ng/mL in infants and children. Performed By: #### 3 [id number] #### [facility] ([id number]) [address], [address] [place] [address] Lab Reportson 02-21-2023 Lab Reports [id number]#1.00CD:[address] [facility] RAD - CT Reporton 02-21-2023 RAD - CT Report [id number] #1.00CD:[address] [facility] Physician Referralon 023 Physician Referral [id number] #1.00CD:[address] [facility] PAP ACOG PANEL 2: 30 to 65on 09-28-2022 . . Normal [facility] Comment on above: Result Comment: Perf ormed at: WB Performed By: #### [id number] #### [facility] [address] [place] [address] Dr. Oneyda Rodriguez Age Gdln ACOG Testing - Normal [facility] Comment on above: Performed By: #### [id number] #### [facility] [address] [place] [address] Dr. Oneyda Rodriguez DIAGNOSIS: Comment Normal [facility] Comment on above: Result Comment: NEGA TIVE FOR INTRAEPITHELIAL LESION OR MALIGNANCY. REACTIVE CELLULAR CHANGES AND/OR REPAIR ARE PRESENT. Performed at: WB Performed By: #### [id number] #### [facility] [address] [address] [address] Oneyda Rodriguez Electronically signed by: Comment Normal [facility] Comment on above: Result Comment: Gila Lopez MD, Pathologist Performed at: WB Performed By: #### [id number] #### [facility] [address] [place] [address] Dr. Oneyda Rodriguez HPV Aptima Negative Normal Negative [facility] Comment on above: Result Comment: This nucleic acid amplification test detects fourteen high-risk HPV types (16,18,31,33,35,39,45,51,52,56,58,59,66,68) without differentiation. Performed at: =G Performed By: #### [id number] #### [facility] [address] [place] [address] Dr. Oneyda Rodriguez HPV Genotype Reflex Comment Normal [facility] Comment on above: Result Comment: Crit eria not met, HPV Genotype not performed. Performed at: WB Performed By: #### [id number] #### [facility] [address] [place] [address] Dr. Oneyda Rodriguez Methodology: Comment Normal [facility] Comment on above: Result Comment: This liquid based ThinPrep(R) pap test was screened with the use of an image guided system. Performed at: WB Performed By: #### [id number] #### [facility] [address] [place] [address] Dr. Oneyda Rodriguez Note: Comment Normal [facility] Comment on above: Result Comment: The Pap smear is a screening test designed to aid in the detection of premalignant and malignant conditions of the uterine cervix. It is not a diagnostic procedure and should not be used as the sole means of detecting cervical cancer. Both false-positive and false-negative reports do occur. . Performed at: WB Performed By: #### [id number] #### [facility] [address] [place] [address] Dr. Oneyda Rodriguez Performed by: Comment Normal [facility] Comment on above: Result Comment: Katie Elliott, Supervisory Meat Hanger (ASCP) Performed at: WB Performed By: #### [id number] #### [facility] [address] [place] [address] Dr. Oneyda Rodriguez Specimen adequacy: Comment Normal [facility] Comment on above: Result Comment: Sati sfactory for evaluation. Endocervical and/or squamous metaplastic cells (endocervical component) are present. Performed at: WB Performed By: #### [id number] #### [facility] [address] [place] [address] Dr. Oneyda Rodriguez CULTURE URINEon 06-11-2022 CULTURE [...] F Trimethoprim/Sulfame thoxazole <=20 S F Normal [facility] Comment on above: Performed By: #### U RCX #### [facility] [address] [place] [address] Dr. Oneyda Rodriguez CBC AUTO DIFFon 06-08-2022 BASO # 0.1 103/ul Normal 0.0-0.1 [facility] Comment on above: Performed By: #### C BC #### [facility] [address] [place] [address] Dr. Oneyda Rodriguez Basophils/100 WBC (Bld) 0.5 % Normal 0.2-2.0 [facility] Comment on above: Performed By: #### C BC #### [facility] [address] [place] [address] Dr. Oneyda Rodriguez EO # 0.2 103/ul Normal 0.0-0.7 [facility] Comment on above: Performed By: #### C BC #### [facility] [address] [place] [address] Dr. Oneyda Rodriguez Eosinophils/100 WBC (Bld) 1.6 % Normal 0.9-7.0 [facility] Comment on above: Performed By: #### C BC #### [facility] [address] [place] [address] Dr. Oneyda Rodriguez Erythrocyte distribution width (RBC) [Ratio] 13.4 % Normal 11.0-15.0 [facility] Comment on above: Performed By: #### C BC #### [facility] [address] [place] [address] Dr. Oneyda Rodriguez Hematocrit (Bld) [Volume fraction] 35.4 % Critically low 36.0-48.0 [facility] Comment on above: Performed By: #### C BC #### [facility] [address] [place] [address] Dr. Oneyda Rodriguez Hemoglobin (Bld) [Mass/Vol] 12.2 g/dL Normal 12.0-16.0 [facility] Comment on above: Performed By: #### C BC #### [facility] [address] [place] [address] Dr. Oneyda Rodriguez IG # 0.05 10e3/ul Critically high 0.00-0.[address] [facility] Comment on above: Performed By: #### C BC #### [facility] [address] [place] [address] Dr. Oneyda Rodriguez IG % 0.4 % Normal 0.0-0.5 [facility] Comment on above: Performed By: #### C BC #### [facility] [address] [place] [address] Dr. Oneyda Rodriguez LYMPH # 2.2 103/ul Normal 1.2-3.8 [facility] Comment on above: Performed By: #### C BC #### [facility] [address] [place] [address] Dr. Oneyda Rodriguez Lymphocytes/100 WBC (Bld) 16.6 % Critically low 20.5-60.0 [facility] Comment on above: Performed By: #### C BC #### [facility] [address] [place] [address] Dr. Oneyda Rodriguez MANUAL DIFF REQ NO Normal [facility] Comment on above: Performed By: #### C BC #### [facility] [address] [place] [address] Dr. Oneyda Rodriguez MCH (RBC) [Entitic mass] 29.7 pg Normal 26.7-34.0 [facility] Comment on above: Performed By: #### C BC #### [facility] [address] [place] [address] Dr. Oneyda Rodriguez MCHC (RBC) [Mass/Vol] 34.5 g/dL Normal 29.9-35.2 [facility] Comment on above: Performed By: #### C BC #### [facility] [address] [place] [address] Dr. Oneyda Rodriguez MCV (RBC) [Entitic vol] 86.1 fL Normal 81.0-99.0 [facility] Comment on above: Performed By: #### C BC #### [facility] [address] [address] [address] Oneyda Rodriguez MONO # 0.6 103/ul Normal 0.3-0.8 [facility] Comment on above: Performed By: #### C BC #### [facility] [address] [address] [address] Oneyda Rodriguez Monocytes/100 WBC (Bld) 4.2 % Normal 1.7-12.0 [facility] Comment on above: Performed By: #### C BC #### [facility] [address] [address] [address] Oneyda Rodriguez NEUT # 10.3 103/ul Critically high 1.4-6.5 [facility] Comment on above: Performed By: #### C BC #### [facility] [address] [place] [address] Dr. Oneyda Rodriguez Neutrophils/100 WBC (Bld) 76.7 % Critically high 43.0-75.0 [facility] Comment on above: Performed By: #### C BC #### [facility] [address] [place] [address] Dr. Oneyda Rodriguez Platelet mean volume (Bld) [Entitic vol] 11.1 fL Normal 9.5-13.5 [facility] Comment on above: Performed By: #### C BC #### [facility] [address] [place] [address] Dr. Oneyda Rodriguez PLT 184 103/ul Normal 150-450 [facility] Comment on above: Performed By: #### C BC #### [facility] [address] [place] [address] Dr. Oneyda Rodriguez RBC 4.11 106/ul Critically low 4.20-5.40 [facility] Comment on above: Performed By: #### C BC #### [facility] [address] [place] [address] Dr. Oneyda Rodriguez WBC 13.4 103/ul Critically high 4.0-11.0 [facility] Comment on above: Performed By: #### C BC #### [facility] [address] [place] [address] Dr. Oneyda Rodriguez ER URINE PROFILEon 2 Bilirubin Ql (U) Negative Normal NEGATIVE [facility] Comment on above: Performed By: #### Lamonte TRAORE UMICRO #### [facility] [address] [place] [address] Dr. Oneyda Rodriguez Clarity (U) CLEAR Normal CLEAR [facility] Comment on above: Performed By: #### Lamonte TRAROE UMICRO #### [facility] [address] [place] [address] Dr. Oneyda Rodriguez Color (U) LT. YELLOW Normal YELLOW [facility] Comment on above: Performed By: #### Lamonte TRAORE UMICRO #### [facility] [address] [place] [address] Dr. Oneyda FREDERICK A micrscopic examination will be performed if indicated. Normal [facility] Comment on above: Performed By: #### Lamonte TRAORE UMICRO #### [facility] [address] [place] [address] Dr. Oneyda Rodriguez Glucose Ql (U) Negative Normal NEGATIVE The [facility] Comment on above: Performed By: #### Lamonte TRAORE UMICRO #### [facility] [address] [place] [address] Dr. Oneyda Rodriguez Hemoglobin Ql (U) SMALL Abnormal NEGATIVE [facility] Comment on above: Performed By: #### Lamonte TRAORE UMICRO #### [facility] [address] [place] [address] Dr. Oneyda Rodriguez Ketones Ql (U) Negative Normal NEGATIVE [facility] Comment on above: Performed By: #### Lamonte TRAORE UMICRO #### [facility] [address] [place] [address] Dr. Oneyda Rodriguez LEUKOCYTES SMALL Abnormal NEGATIVE [facility] Comment on above: Performed By: #### Lamonte TRAORE UMICRO #### [facility] [address] [place] [address] Dr. Oneyda Rodriguez Nitrite Ql (U) Positive Abnormal NEGATIVE [facility] Comment on above: Performed By: #### Lamonte TRAORE UMICRO #### [facility] [address] [address] [address] Oneyda Rodriguez pH (U) 6.0 [pH] Normal 5-9 [facility] Comment on above: Performed By: #### Lamonte TRAORE, ICRO #### [facility] [address] [address] [address] Oneyda Rodriguez SPEC GRAVITY 1.025 Normal 1.005-<=1.025 [facility] Comment on above: Performed By: #### Lamonte TRAORE, UMICRO #### [facility] [address] [place] [address] Dr. Oneyda Rodriguez UA PROTEIN TRACE Normal NEGATIVE/ TRACE [facility] Comment on above: Performed By: #### Lamonte TRAORE ICRO #### [facility] [address] [place] [address] Dr. Oneyda Rodriguez UR MICRO IND INDICATED Normal [facility] Comment on above: Performed By: #### Lamonte [facility]ORE [facility] #### [facility] [address] [place] [address] Dr. Oneyda Rodriguez Urobilinogen Qn (U) 0.2 {Saul'U}/dL Normal 0.2 - 1. 0 [facility] Comment on above: Performed By: #### Lamonte TRAORE, ICRO #### [facility] [address] [place] [address] Dr. Oneyda Rodriguez PREG HCG QUALon 06-08-2022 , QUAL Negative Normal NEGATIVE [facility] Comment on above: Performed By: #### Lamonte TRAORE, ICRO #### [facility] [address] [place] [address] Dr. Oneyda Rodriguez PROF 14(COMP METB)on 022 Albumin [Mass/Vol] 3.6 g/dL Normal 3.4-5.0 [facility] Comment on above: Performed By: #### C MP #### [facility] [address] [place] [address] Dr. Oneyda Rodriguez Albumin/Globulin [Mass ratio] 1.1 {ratio} Normal [facility] Comment on above: Performed By: #### C MP #### [facility] [address] [address] [address] Oneyda Rodriguez ALP [Catalytic activity/Vol] 115 U/L Normal 46-116 [facility] Comment on above: Performed By: #### C MP #### [facility] [address] [address] [address] Oneyda Rodriguez ALT [Catalytic activity/Vol] 52 U/L Normal 14-59 [facility] Comment on above: Performed By: #### C MP #### [facility] [address] [address] [address] Oneyda Rodriguez Anion gap [Moles/Vol] 8.2 mmol/L Normal [facility] Comment on above: Performed By: #### C MP #### [facility] [address] [place] [address] Dr. Oneyda Rodriguez AST [Catalytic activity/Vol] 21 U/L Normal 15-37 [facility] Comment on above: Performed By: #### C MP #### [facility] [address] [place] [address] Dr. Oneyda Rodriguez Bilirubin [Mass/Vol] 0.1 mg/dL Critically low 0.2-1.0 [facility] Comment on above: Performed By: #### C MP #### [facility] [address] [place] [address] Dr. Oneyda Rodriguez Calcium [Mass/Vol] 8.4 mg/dL Critically low 8.5-10.1 [facility] Comment on above: Performed By: #### C MP #### [facility] [address] [place] [address] Dr. Oneyda Rodriguez Chloride [Moles/Vol] 105 mmol/L Normal 98-107 [facility] Comment on above: Performed By: #### C MP #### [facility] [address] [place] [address] Dr. Oneyda Rodriguez CO2 [Moles/Vol] 28.3 mmol/L Normal 21.0-32.0 [facility] Comment on above: Performed By: #### C MP #### [facility] [address] [address] [address] Oneyda Rodriguez Creatinine [Mass/Vol] 0.84 mg/dL Normal 0.55-1.02 [facility] Comment on above: Performed By: #### C MP #### [facility] [address] [address] [address] Oneyda Rodriguez EGFR-AF ANGUILLAN >60 Normal >=60 [facility] Comment on above: Performed By: #### C MP #### [facility] [address] [address] [address] Oneyda Rodriguez EGFR-NON AF ANGUILLAN >60 Normal >=60 [facility] Comment on above: Performed By: #### C MP #### [facility] [address] [address] [address] Oneyda Rodriguez Globulin (S) [Mass/Vol] 3.3 g/dL Normal [facility] Comment on above: Performed By: #### C MP #### [facility] [address] [address] [address] Oneyda Rodriguez Glucose [Mass/Vol] 85 mg/dL Normal 74-106 [facility] Comment on above: Performed By: #### C MP #### [facility] [address] [place] [address] Dr. Oneyda Rodriguez Potassium [Moles/Vol] 3.5 mmol/L Normal 3.5-5.1 [facility] Comment on above: Performed By: #### C MP #### [facility] [address] [address] [address] Oneyda Rodriguez Protein [Mass/Vol] 6.9 g/dL Normal 6.4-8.2 [facility] Comment on above: Performed By: #### C MP #### [facility] [address] [place] [address] Dr. Oneyda Rodriguez Sodium [Moles/Vol] 138 mmol/L Normal 136-145 [facility] Comment on above: Performed By: #### C MP #### [facility] [address] [place] [address] Dr. Oneyda Rodriguez Urea nitrogen [Mass/Vol] 14.0 mg/dL Normal 7.0-18.0 [facility] Comment on above: Performed By: #### C MP #### [facility] [address] [place] [address] Dr. Oneyda Rodriguez Urea nitrogen/Creatinine [Mass ratio] 16.7 mg/mg Normal [facility] Comment on above: Performed By: #### C MP #### [facility] [address] [place] [address] Dr. Oneyda Rodriguez URINE MICROSCOPIC ONLYon BACTERIA TRACE Abnormal NONE SEEN [facility] Comment on above: Performed By: #### E RUR, UMICRO #### [facility] [address] [place] [address] Dr. Oneyda Rodriguez Bacteria identified Cx Nom (U) INDICATED Normal [facility] Comment on above: Performed By: #### E RUR, UMICRO #### [facility] [address] [place] [address] Dr. Oneyda Rodriguez CAST NONE SEEN Normal NONE SEEN [facility] Comment on above: Performed By: #### E RUR, UMICRO #### [facility] [address] [place] [address] Dr. Oneyda Rodriguez Crystals LM Nom (Urine sed) NONE SEEN Normal NONE SEEN [facility] Comment on above: Performed By: #### E RUR, UMICRO #### [facility] [address] [place] [address] Dr. Oneyda Rodriguez Epithelial cells LM Ql (Urine sed) RARE Normal NONE SEEN /RARE [facility] Comment on above: Performed By: #### E RUR, UMICRO #### [facility] [address] [place] [address] Dr. Oneyda Rodriguez MUCOUS NONE SEEN Normal NONE SEEN [facility] Comment on above: Performed By: #### E RUR, UMICRO #### [facility] [address] [place] [address] Dr. Oneyda Rodriguez RBC NONE SEEN Abnormal 0-2 [facility] Comment on above: Performed By: #### E RUR, UMICRO #### [facility] [address] [address] [address] Oneyda Rodriguez WBC 2-5 Abnormal NONE SEEN [facility] Comment on above: Performed By: #### E BILL TRAORE #### [facility] [address] [place], [place] [id number] Dr. Oneyda Rodriguez CBC AUTO DIFFon 11-23-2021 BASO # 0.1 103/ul Normal 0.0-0.1 [facility] Comment on above: Performed By: #### C BC #### [facility] [address] [place] [address] Dr. Oneyda Rodriguez Basophils/100 WBC (Bld) 0.5 % Normal 0.2-2.0 [facility] Comment on above: Performed By: #### C BC #### [facility] [address] [place] [address] Dr. Oneyda Rodriguez EO # 0.3 103/ul Normal 0.0-0.7 [facility] Comment on above: Performed By: #### C BC #### [facility] [address] [place] [address] Dr. Oneyda Rodriguez Eosinophils/100 WBC (Bld) 2.4 % Normal 0.9-7.0 [facility] Comment on above: Performed By: #### C BC #### [facility] [address] [place] [address] Dr. Oneyda Rodriguez Erythrocyte distribution width (RBC) [Ratio] 14.8 % Normal 11.0-15.0 [facility] Comment on above: Performed By: #### C BC #### [facility] [address] [place] [address] Dr. Oneyda Rodriguez Hematocrit (Bld) [Volume fraction] 36.0 % Normal 36.0-48.0 [facility] Comment on above: Performed By: #### C BC #### [facility] [address] [place] [address] Dr. Oneyda Rodriguez Hemoglobin (Bld) [Mass/Vol] 11.8 g/dL Critically low 12.0-16.0 [facility] Comment on above: Performed By: #### C BC #### [facility] [address] [address] [address] Oneyda Rodriguez IG # 0.05 10e3/ul Critically high 0.00-0.[address] [facility] Comment on above: Performed By: #### C BC #### [facility] [address] [address] [address] Oneyda Rodriguez IG % 0.4 % Normal 0.0-0.5 [facility] Comment on above: Performed By: #### C BC #### [facility] [address] [place] [address] Dr. Oneyda Rodriguez LYMPH # 3.2 103/ul Normal 1.2-3.8 [facility] Comment on above: Performed By: #### C BC #### [facility] [address] [place] [address] Dr. Oneyda Rodriguez Lymphocytes/100 WBC (Bld) 24.3 % Normal 20.5-60.0 [facility] Comment on above: Performed By: #### C BC #### [facility] [address] [place] [address] Dr. Oneyda Rodriguez MANUAL DIFF REQ NO Normal [facility] Comment on above: Performed By: #### C BC #### [facility] [address] [place] [address] Dr. Oneyda Rodriguez MCH (RBC) [Entitic mass] 29.2 pg Normal 26.7-34.0 [facility] Comment on above: Performed By: #### C BC #### [facility] [address] [place] [address] Dr. Oneyda Rodriguez MCHC (RBC) [Mass/Vol] 32.8 g/dL Normal 29.9-35.2 [facility] Comment on above: Performed By: #### C BC #### [facility] [address] [place] [address] Dr. Oneyda Rodriguez MCV (RBC) [Entitic vol] 89.1 fL Normal 81.0-99.0 [facility] Comment on above: Performed By: #### C BC #### [facility] [address] [address] [address] Oneyda Rodriguez MONO # 0.6 103/ul Normal 0.3-0.8 [facility] Comment on above: Performed By: #### C BC #### [facility] [address] [place] [address] Dr. Oneyda Rodriguez Monocytes/100 WBC (Bld) 4.9 % Normal 1.7-12.0 [facility] Comment on above: Performed By: #### C BC #### [facility] [address] [place] [address] Dr. Oneyda Rodriguez NEUT # 8.8 103/ul Critically high 1.4-6.5 [facility] Comment on above: Performed By: #### C BC #### [facility] [address] [place] [address] Dr. Oneyda Rodriguez Neutrophils/100 WBC (Bld) 67.5 % Normal 43.0-75.0 [facility] Comment on above: Performed By: #### C BC #### [facility] [address] [place] [address] Dr. Oneyda Rodriguez Platelet mean volume (Bld) [Entitic vol] 12.5 fL Normal 9.5-13.5 [facility] Comment on above: Performed By: #### C BC #### [facility] [address] [place] [address] Dr. Oneyda Rodriguez PLT 213 103/ul Normal 150-450 [facility] Comment on above: Performed By: #### C BC #### [facility] [address] [place] [address] Dr. Oneyda Rodriguez RBC 4.04 106/ul Critically low 4.20-5.40 [facility] Comment on above: Performed By: #### C BC #### [facility] [address] [place] [address] Dr. Oneyda Rodriguez WBC 13.1 103/ul Critically high 4.0-11.0 [facility] Comment on above: Performed By: #### C BC #### [facility] [address] [place] [address] Dr. Oneyda Rodriguez CRPon 11-23-2021 CRP [Mass/Vol] mg/L Normal <=1.[address] [facility] Comment on above: Performed By: #### BILL LI #### [facility] [address] [address] [address] HEAD WO CONon [...] by: SHARON MC Date: 2021-11-23 06:36 Normal [facility] LACTATE/LACTIC ACIDon 2021 Lactate [Moles/Vol] 0.7 mmol/L Normal 0.4-1.9 [facility] Comment on above: Performed By: #### L ACT #### [facility] [address] [address] [address] Oneyda Rodriguez PROF 14(COMP METB)on 022 Albumin [Mass/Vol] 3.9 g/dL Normal 3.4-5.0 [facility] Comment on above: Performed By: #### BILL LI #### [facility] [address] [address] [address] Oneyda Rodriguez Albumin/Globulin [Mass ratio] 1.1 {ratio} Normal [facility] Comment on above: Performed By: #### BILL LI #### [facility] [address] [address] [address] Oneyda Rodriguez ALP [Catalytic activity/Vol] 107 U/L Normal 46-116 [facility] Comment on above: Performed By: #### HENRI LIRO #### [facility] [address] [place] [address] Dr. Oneyda Rodriguez ALT [Catalytic activity/Vol] 62 U/L Critically high 14-59 [facility] Comment on above: Performed By: #### HENRI LIRO #### [facility] [address] [place] [address] Dr. Oneyda Rodriguez Anion gap [Moles/Vol] 12.2 mmol/L Normal [facility] Comment on above: Performed By: #### Lamonte TRAORE UMICRO #### [facility] [address] [place] [address] Dr. Oneyda Rodriguez AST [Catalytic activity/Vol] 26 U/L Normal 15-37 [facility] Comment on above: Performed By: #### HENRI LIRO #### [facility] [address] [place] [address] Dr. Oneyda Rodriguez Bilirubin [Mass/Vol] 0.3 mg/dL Normal 0.2-1.0 [facility] Comment on above: Performed By: #### HENRI LIRO #### [facility] [address] [place] [address] Dr. Oneyda Rodriguez Calcium [Mass/Vol] 8.8 mg/dL Normal 8.5-10.1 [facility] Comment on above: Performed By: #### HENRI LIRO #### [facility] [address] [place] [address] Dr. Oneyda Rodriguez Chloride [Moles/Vol] 104 mmol/L Normal 98-107 [facility] Comment on above: Performed By: #### HENRI LIRO #### [facility] [address] [place] [address] Dr. Oneyda Rordiguez CO2 [Moles/Vol] 28.9 mmol/L Normal 21.0-32.0 [place] Comment on above: Performed By: #### HENRI ILRO #### [facility] [address] [place] [address] Dr. Oneyda Rodriguez Creatinine [Mass/Vol] 0.73 mg/dL Normal 0.55-1.02 [facility] Comment on above: Performed By: #### BILL LI #### [facility] [address] [place] [address] Dr. Oneyda Rodriguez EGFR-AF ANGUILLAN >60 Normal >=60 [facility] Comment on above: Performed By: #### BILL LI #### [facility] [address] [address] [address] Oneyda Rodriguez EGFR-NON AF ANGUILLAN >60 Normal >=60 [facility] Comment on above: Performed By: #### BILL LI #### [facility] [address] [place] [address] Dr. Oneyda Rodriguez Globulin (S) [Mass/Vol] 3.4 g/dL Normal [facility] Comment on above: Performed By: #### BILL LI #### [facility] [address] [place] [address] Dr. Oneyda Rodriguez Glucose [Mass/Vol] 105 mg/dL Normal 74-106 [facility] Comment on above: Performed By: #### BILL LI #### [facility] [address] [place] [address] Dr. Oneyda Rodriguez Potassium [Moles/Vol] 3.1 mmol/L Critically low 3.5-5.1 [facility] Comment on above: Performed By: #### BILL LI #### [facility] [address] [place] [address] Dr. Oneyda Rodriguez Protein [Mass/Vol] 7.3 g/dL Normal 6.4-8.2 [facility] Comment on above: Performed By: #### BILL LI #### [facility] [address] [place] [address] Dr. Oneyda Rodriguez Sodium [Moles/Vol] 142 mmol/L Normal 136-145 [facility] Comment on above: Performed By: #### BILL LI #### [facility] [address] [address] [address] Oneyda Rodriguez Urea nitrogen [Mass/Vol] 12.0 mg/dL Normal 7.0-18.0 [facility] Comment on above: Performed By: #### Lamonte TRAORE, UMICRO #### [facility] [address] [address] [address] Oneyda Rodriguez Urea nitrogen/Creatinine [Mass ratio] 16.4 mg/mg Normal [facility] Comment on above: Performed By: #### Lamonte TRAORE, UMICRO #### [facility] [address] [address] [address] Oneyda Rodriguez TROPONIN, HIGH SENSITIVITYon 11-23-2021 HSTROP 4.8 pg/mL Normal 4.0-51.3 [facility] Comment on above: Result Comment: CUT- OFF POINTS HAVE BEEN ESTABLISHED BASED ON THE FOURTH UNIVERSAL DEFINITIONS OF MYOCARDIAL INFARCTION. THE UPPER REFERENCE LIMIT (URL) OF TROPONIN, DEFINED THE 99TH PERCENTILE OF cTnI DISTRIBUTION IN A REFERENCE POPULATION, HAS BEEN CONFIRMED THE DECISION THRESHOLD FOR HI DIAGNOSIS. Performed By: #### Lamonte TRAORE, UMICRO #### [facility] [address] [address] [address] Oneyda Rodriguez HCV RNA,Quant,PCRon 11-02-19 HCV [...] Health Department Report Status FINAL 11/01/2020 Normal [facility] Comment on above: Performed By: #### H CVQ #### [address] [id number] Sample Grader: Valdo Diaz MD [address] [place] [id number] Sample Grader: Mateo Mir MD CBCon 10-27-2020 Erythrocyte distribution width (RBC) [Ratio] 14.4 % Normal 11.8-14.4 [facility] Comment on above: Performed By: #### I PF, CBC, CP, HCG #### [address] [place] [id number] Sample Grader: Mateo Mir MD #### HIVCMB, PHEP #### [address] [id number] Sample Grader: Valdo Diaz MD Hematocrit (Bld) [Volume fraction] 38.8 % Normal 36.3-47.1 [facility] Comment on above: Performed By: #### I PF, CBC, CP, HCG #### [address] [place] [id number] Sample Grader: Mateo Mir MD #### HIVCMB, PHEP #### [address] [id number] Sample Grader: Valdo Diaz MD Hemoglobin (Bld) [Mass/Vol] 12.4 g/dL Normal 11.9-15.1 [facility] Comment on above: Performed By: #### I PF, CBC, CP, HCG #### [address] [place] [address] Sample Grader: Mateo Mir MD #### HIVCMB, PHEP #### [address] [id number] Sample Grader: Valdo Diaz MD MCH (RBC) [Entitic mass] 28.0 pg Normal 25.2-33.5 [facility] Comment on above: Performed By: #### I PF, CBC, CP, HCG #### [facility] [address] [place] [address] Dr[address] [place], [place] [id number] Sample Grader: Mateo Mir MD #### HIVCMB, PHEP #### [address] [address] [id number] Sample Grader: Valdo Diaz MD MCHC (RBC) [Mass/Vol] 32.0 g/dL Normal 28.4-34.8 [facility] Comment on above: Performed By: #### I PF, CBC, CP, HCG #### [address] [place] [address] Sample Grader: Mateo Mir MD #### HIVCMB, PHEP #### [address] [id number] Sample Grader: Valdo Diaz MD MCV (RBC) [Entitic vol] 87.6 fL Normal 82.6-102.9 [facility] Comment on above: Performed By: #### I PF, CBC, CP, HCG #### [address] [place] [phone] Sample Grader: Mateo Mir MD #### HIVCMB, PHEP #### [address] [id number] Sample Grader: Valdo Diaz MD NRBC Automated 0.0 per 100 WBC Normal 0.0 [facility] Comment on above: Performed By: #### I PF, CBC, CP, HCG #### [address] [place] [address] Sample Grader: Mateo Mir MD #### HIVCMB, PHEP #### [address] [id number] Sample Grader: Valdo Diaz MD Platelet Count See Reflexed IPF Result Normal 138-453 [facility] Comment on above: Performed By: #### I PF, CBC, CP, HCG #### [address] [place], [place] [id number] Sample Grader: Mateo Mir MD #### HIVCMB, PHEP #### [address] [place] [address] Sample Grader: Valdo Diaz MD RBC (Bld) [#/Vol] 4.43 10*6/uL Normal 3.95-5.11 [facility] Comment on above: Performed By: #### I PF, CBC, CP, HCG #### [address] [place], [place] [id number] Sample Grader: Mateo Mir MD #### HIVCMB, PHEP #### [address] [address] Sample Grader: Valdo Diaz MD WBC (Bld) [#/Vol] 8.2 10*3/uL Normal 3.5-11.3 [facility] Comment on above: Performed By: #### I PF, CBC, CP, HCG #### [address] [place], [place] [id number] Sample Grader: Mateo Mir MD #### HIVCMB, PHEP #### [address] [address] Sample Grader: Valdo Diaz MD MPV NOT REPORTED Normal 8.1-13.5 [facility] Comment on above: Performed By: #### I PF, CBC, CP, HCG #### [address] [place] [address] Sample Grader: Mateo Mir MD #### HIVCMB, PHEP #### [address] [address] Sample Grader: Valdo Diaz MD CBCOrdered By: Diego Hernandez on 10-27-2020 Hematocrit (Bld) [Volume fraction] 38.8 % 36.3 - 47.1 % [email or web address] Phone: Hemoglobin.gastroint estinal spec 1 Ql (Stl) 12.4 g/dL 11.9 - 15.1 g/dL [email or web address] Phone: MCH (RBC) [Entitic mass] 28.0 pg 25.2 - 33.5 pg [email or web address] Phone: MCHC (RBC) [Mass/Vol] 32.0 g/dL 28.4 - 34.8 g/dL [email or web address] Phone: MCV (RBC) [Entitic vol] 87.6 fL 82.6 - 102.9 fL [email or web address] Phone: NRBC Automated 0.0 0.0 per 100 WBC [email or web address] Phone: Platelet distribution width (Bld) [Ratio] 14.4 % 11.8 - 14.4 % [email or web address] Phone: Platelet mean volume (Bld) [Entitic vol] NOT REPORTED 8.1 - 13.5 fL [email or web address] Phone: Platelets (Bld) [#/Vol] See Reflexed IPF Result [email or web address] Phone: RBC (Bld) [#/Vol] 4.43 10*6/uL 3.95 - 5.1 1 m/uL [email or web address] Phone: WBC (Bld) [#/Vol] 8.2 10*3/uL [email or web address] Phone: Comp Metabolic Profon 2020 (cont.) Normal [facility] Comment on above: Result Comment: Aver age GFR for 30-39 years old: 107 mL/min/1.73sq m Chronic Kidney Disease: <60 mL/min/1.73sq m Kidney failure: <15 mL/min/1.73sq m eGFR calculated using average adult body mass. Additional eGFR calculator available at: http://www.[employer].com/multiple_crcl_2012.htm Performed By: #### I PF, CBC, CP, HCG #### [address] [place] [phone] Sample Grader: Mateo Mir MD #### HIVCMB, PHEP #### [address] [phone] Sample Grader: Valdo Diaz MD Albumin [Mass/Vol] 3.6 g/dL Normal 3.5-5.2 [facility] Comment on above: Performed By: #### I PF, CBC, CP, HCG #### [address] [place] [phone] Sample Grader: Mateo Mir MD #### GARTH, PHEP #### [address] [id number] Sample Grader: Valdo Diaz MD Albumin/Glob Ratio 1.2 Normal 1.0-2.5 [facility] Comment on above: Performed By: #### I PF, CBC, CP, HCG #### [address] [place] [phone] Sample Grader: Mateo Mir MD #### GARTH, PHEP #### [address] [address] Sample Grader: Valdo Diaz MD Alkaline Phos 174 U/L High 35-104 [facility] Comment on above: Performed By: #### I PF, CBC, CP, HCG #### [address] [place] [phone] Sample Grader: Mateo Mir MD #### HIVCMB, PHEP #### [address] [address] Sample Grader: Valdo Diaz MD ALT [Catalytic activity/Vol] 65 U/L High 5-33 [facility] Comment on above: Performed By: #### I PF, CBC, CP, HCG #### [facility] [address] [place], [place] [phone] Sample Grader: Mateo Mir MD #### HIVCMB, PHEP #### [address] [phone] Sample Grader: Valdo Diaz MD Anion gap [Moles/Vol] 8 mmol/L Low 9-17 [facility] Comment on above: Performed By: #### I PF, CBC, CP, HCG #### [facility] [address] [place] [address] [place], [place] [phone] Sample Grader: Mateo Mir MD #### HIVCMB, PHEP #### [address] [phone] Sample Grader: Valdo Diaz MD AST [Catalytic activity/Vol] 42 U/L High <32 [facility] Comment on above: Performed By: #### I PF, CBC, CP, HCG #### [facility] [address] [place] [address] [place], [place] 1978383 Sample Grader: Mateo Mir MD #### HIVCMB, PHEP #### [address] [phone] Sample Grader: Valdo Diaz MD Bilirubin [Mass/Vol] 0.20 mg/dL Low 0.3-1.2 [facility] Comment on above: Performed By: #### I PF, CBC, CP, HCG #### [facility] [address] [place] [address] [place] [address] Sample Grader: Mateo Mir MD #### HIVCMB, PHEP #### [address] [address] Sample Grader: Valdo Diaz MD BUN/CRE Ratio 12 Normal 9-20 [facility] Comment on above: Performed By: #### I PF, CBC, CP, HCG #### [address] [place] [phone] Sample Grader: Mateo Mir MD #### HIVCMB, PHEP #### [address] [phone] Sample Grader: Valdo Diaz MD Calcium [Mass/Vol] 9.2 mg/dL Normal 8.6-10.4 [facility] Comment on above: Performed By: #### I PF, CBC, CP, HCG #### [address] [place] [phone] Sample Grader: Mateo Mir MD #### HIVCMB, PHEP #### [address] [phone] Sample Grader: Valdo Diaz MD Chloride [Moles/Vol] 107 mmol/L Normal 98-107 [facility] Comment on above: Performed By: #### I PF, CBC, CP, HCG #### [address] [place] [phone] Sample Grader: Mateo Mir MD #### HIVCMB, PHEP #### [address] [address] Sample Grader: Valdo Diaz MD CO2 [Moles/Vol] 26 mmol/L Normal 20-31 [facility] Comment on above: Performed By: #### I PF, CBC, CP, HCG #### [address] [place] [phone] Sample Grader: Mateo Mir MD #### HIVCMB, PHEP #### [address] [phone] Sample Grader: Valdo Diaz MD Creatinine [Mass/Vol] 0.67 mg/dL Normal 0.50-0.90 [facility] Comment on above: Performed By: #### I PF, CBC, CP, HCG #### [facility] [address] [place] [address] [place]. [place], [place] [phone] Sample Grader: Mateo Mir MD #### HIVCMB, PHEP #### [address] [phone] Sample Grader: Valdo Diaz MD GFR, Amer >60 Normal >60 [facility] Comment on above: Performed By: #### I PF, CBC, CP, HCG #### [facility] [address] [place] [address] Dr. [place] [phone] Sample Grader: Mateo Mir MD #### HIVCMB, PHEP #### [address] [phone] Sample Grader: Valdo Diaz MD GFR,non Amer >60 Normal >60 [facility] Comment on above: Performed By: #### I PF, CBC, CP, HCG #### [address] [place], [place] 0031083 Sample Grader: Mateo Mir MD #### HIVCMB, PHEP #### [address] [address] Sample Grader: Valdo Diaz MD Glucose [Mass/Vol] 99 mg/dL Normal 70-99 [facility] Comment on above: Performed By: #### I PF, CBC, CP, HCG #### [address] [place], [place] [phone] Sample Grader: Mateo Mir MD #### HIVCMB, PHEP #### [address] [address] Sample Grader: Valdo Diaz MD Potassium [Moles/Vol] 4.2 mmol/L Normal 3.7-5.3 [facility] Comment on above: Performed By: #### I PF, CBC, CP, HCG #### [address] [place] [address] Sample Grader: Mateo Mir MD #### HIVCMB, PHEP #### [address] [phone] Sample Grader: Valdo Diaz MD Protein [Mass/Vol] 6.6 g/dL Normal 6.4-8.3 [facility] Comment on above: Performed By: #### I PF, CBC, CP, HCG #### [address] [place] [phone] Sample Grader: Mateo Mir MD #### HIVCMB, PHEP #### [address] [phone] Sample Grader: Valdo Diaz MD Sodium [Moles/Vol] 141 mmol/L Normal 135-144 [facility] Comment on above: Performed By: #### I PF, CBC, CP, HCG #### [address] [place] [phone] Sample Grader: Mateo Mir MD #### HIVCMB, PHEP #### [place] [phone] Sample Grader: Valdo Diaz MD Staging: Normal [facility] Comment on above: Result Comment: Stag e 1: Some kidney damage normal GFR Stage 2: Mild kidney damage GFR 60-89 Stage 3: Moderate kidney damage GFR 30-59 Stage 4: Severe kidney damage GFR 15-29 Stage 5: Severe kidney damage GFR <15 ESRD - chronic treatment by dialysis or transplant Performed By: #### I PF, CBC, CP, HCG #### [address] [place] [phone] Sample Grader: Mateo Mir MD #### HIVCMB, PHEP #### [facility] [address] [place], [place] [phone] Sample Grader: Valdo Diaz MD Urea nitrogen [Mass/Vol] 8 mg/dL Normal 6-20 [facility] Comment on above: Performed By: #### I PF, CBC, CP, HCG #### [facility] [address] [place] [address] Sample Grader: Mateo Mir MD #### HIVCMB, PHEP #### [facility] [address] [place], [place] [phone] Sample Grader: Valdo Diaz MD Comprehensive Metabolic Pane lOrdered By: Diego Hernandez on 10-27-2020 Albumin [Mass/Vol] 3.6 g/dL 3.5 - 5.2 g/dL [facility] Work Phone: Albumin/Globulin [Mass ratio] 1.2 {ratio} [facility] [employer] Phone: ALP (Bld) [Catalytic activity/Vol] 174 U/L High 35 - 104 U/L [facility] Phone: ALT [Catalytic activity/Vol] 65 U/L High 5 - 33 U/L [facility] Phone: Anion gap [Moles/Vol] 8 mmol/L Low 9 - 17 mmol/L [facility] Phone: AST [Catalytic activity/Vol] 42 U/L High <32 [facility] Phone: Bilirubin [Mass/Vol] 0.20 mg/dL Low 0.3 - 1.2 mg/dL [email or web address] Phone: Calcium [Mass/Vol] 9.2 mg/dL 8.6 - 10. 4 mg/dL [facility] Phone: Chloride [Moles/Vol] 107 mmol/L 98 - 107 mmol/L [facility] Phone: CO2 [Moles/Vol] 26 mmol/L 20 - 31 mmol/L [facility] Phone: Creatinine [Mass/Vol] 0.67 mg/dL 0.50 - 0.90 mg/dL [email or web address] Phone: Free PSA/Total PSA [Mass fraction] 6.6 g/dL 6.4 - 8.3 g/dL [facility] Phone: GFR >60 >60 mL/min [employer] Phone: GFR Non- >60 >60 mL/min [facility] Phone: Glucose [Mass/Vol] 99 mg/dL 70 - 99 mg/dL [facility] [employer] Phone: Interpretation and review of laboratory results Abnormal [facility] Phone: Potassium [Moles/Vol] 4.2 mmol/L 3.7 - 5.3 mmol/L [facility] Phone: Sodium [Moles/Vol] 141 mmol/L 135 - 144 mmol/L [facility] Phone: Urea nitrogen (BldV) [Mass/Vol] 8 mg/dL 6 - 20 mg/dL [email or web address] Phone: Urea nitrogen/Creatinine (Bld) [Mass ratio] 12 [facility] Phone: HCG Qualitative, SerumOrdere d By: Diego Hernandez on 10-27-2020 hCG Qual Negative NEGATIVE [email or web address] Phone: Comment on above: Specimens with hCG l evels near the threshold of the test (25 mIU/mL) may give a negative or indeterminate result. In such cases, another test should be performed with a new specimen in 48-72 hours. If early is suspected clinically in this setting, correlation with quantitative serum b-hCG level is suggested. [facility] has confirmed the use of plasma for this test. This has not been cleared or approved by the U.S. Food and Drug Administration. The FDA has determined that such clearance is not necessary. HCG Screen, Bloodon 10-28-19 21 HCG Screen, Blood Negative Normal NEG [facility] Comment on above: Result Comment: Spec imens with hCG levels near the threshold of the test (25 mIU/mL) may give a negative or indeterminate result. In such cases, another test should be performed with a new specimen in 48-72 hours. If early is suspected clinically in this setting, correlation with quantitative serum b-hCG level is suggested. [facility] has confirmed the use of plasma for this test. This has not been cleared or approved by the U.S. Food and Drug Administration. The FDA has determined that such clearance is not necessary. Performed By: #### I PF, HCG, CP, CBC #### [address] [place] [address] Sample Grader: Fidel Hallman MD #### HIVCMB, PHEP #### [address] [place], [place] [phone] Sample Grader: Valdo Diaz MD HIV Ag/Abon 10-27-2020 HIV Ag/Ab Non-Reactive Normal NR [facility] Comment on above: Result Comment: No l aboratory evidence of HIV infection. If acute HIV infection is suspected, consider testing for HIV-1 RNA. Performed By: #### I PF, HCG, CP, CBC #### [address] [place] [address] Sample Grader: Fidel Hallman MD #### HIVCMB, PHEP #### [address] [place], [place] [phone] Sample Grader: Valdo Diaz MD HIV ScreenOrdered By: Diego Hernandez on 10-27-2020 HIV Ag/Ab Non-Reactive NONREACTIVE [facility] Work Phone: Comment on above: No laboratory eviden ce of HIV infection. If acute HIV infection is suspected, consider testing for HIV-1 RNA. Hepatitis Acute [facility] 10-27 Hep A Ab,IgM Non-Reactive Normal NR [facility] Comment on above: Performed By: #### I PF, HCG, CP, CBC #### [address] [place], [place] [phone] Sample Grader: Fidel Hallman MD #### HIVCMB, PHEP #### [address] [phone] Sample Grader: Valdo Diaz MD Hep B Core Ab,IgM Non-Reactive Normal [facility] Comment on above: Performed By: #### I PF, HCG, CP, CBC #### [address] [place], [place] [phone] Sample Grader: Fidel Hallman MD #### HIVCMB, PHEP #### [address] [phone] Sample Grader: Valdo Diaz MD Hep B Surf Ag Non-Reactive Normal [facility] Comment on above: Performed By: #### I PF, HCG, CP, CBC #### [address] [place] [phone] Sample Grader: Fidel Hallman MD #### HIVCMB, PHEP #### [address] [phone] Sample Grader: Valdo Diaz MD Hep C Ab Reactive Abnormal [facility] Comment on above: Result Comment: The hepatitis [...] #### I PF, HCG, CP, CBC #### [address] [place] [address] Sample Grader: Fidel Hallman MD #### HIVCMB, PHEP #### [facility] [address] [place] [place] [phone] Sample Grader: Valdo Diaz MD Hepatitis Panel, AcuteOrdere d By: Diego Hernandez on 10-27-2020 HAV IgM IA Qn (S) Non-Reactive NONREACTIVE [facility] [employer] Work Phone: Hep B Core Ab, IgM Non-Reactive NONREACTIVE [facility] Work Phone: Hepatitis B Surface Ag Non-Reactive NONREACTIVE [facility] Work Phone: Hepatitis C Ab Reactive Abnormal NONREACTIVE [employer] [facility] Work Phone: Comment on above: [...] Interpretation and review of laboratory results Abnormal [email or web address] Phone: Immature Platelet FractionOr dered By: Diego Hernandez on 10-27-2020 Interpretation and review of laboratory results Abnormal [email or web address] Phone: Platelet, Fluorescence 123 Low [email or web address] Phone: Platelet, Immature Fraction 15.9 % High 1.1 - 10.3 % [email or web address] Phone: Laboratory - Chemistry and C hemistry - challengeOrdered By: Diego Hernandez on 10-27-2020 GFR/1.73 sq M.predicted MDRD (S/P/Bld) [Vol rate/Area] [email or web address] Phone: Comment on above: Average GFR for 30-3 9 years old: 107 mL/min/1.73sq m Chronic Kidney Disease: <60 mL/min/1.73sq m Kidney failure: <15 mL/min/1.73sq m eGFR calculated using average adult body mass. Additional eGFR calculator available at: http://www.[employer].com/multiple_crcl_2012.htm Stage 1: Some kidney damage normal GFR Stage 2: Mild kidney damage GFR 60-89 Stage 3: Moderate kidney damage GFR 30-59 Stage 4: Severe kidney damage GFR 15-29 Stage 5: Severe kidney damage GFR <15 ESRD - chronic treatment by dialysis or transplant PLT, Immature Fract.on 10-27 Platelet, Fluoresc. 123 k/uL Low 138-453 [facility] Comment on above: Performed By: #### I PF, CBC, CP, HCG #### [facility] [address] [place], [place] [phone] Sample Grader: Mateo Mir MD #### HIVBLUE, PHEP #### [facility] [address] [place], [place] [phone] Sample Grader: Valdo Diaz MD PLT, Immature Fract. 15.9 % High 1.1-10.3 [facility] Comment on above: Performed By: #### I PF, CBC, CP, HCG #### [facility] [address] [place], [place] [phone] Sample Grader: Mateo Mir MD #### HIVCMB, PHEP #### [facility] [address] [place], [place] [phone] Sample Grader: Valdo Diaz MD HCV RNA,Quant,PCRon 05-13-20 20 [...] Health Department Report Status FINAL 05/13/2020 Normal [facility] Comment on above: Performed By: #### I PF, HCG, CP, CBC #### [address] [place] [address] Sample Grader: Fidel Hallman MD #### HIVCMB, PHEP #### [address] [place], [place] [phone] Sample Grader: Valdo Diaz MD CBCon 05-12-2020 Erythrocyte distribution width (RBC) [Ratio] 14.7 % High 11.8-14.4 [facility] Comment on above: Performed By: #### I PF, HCG, CP, CBC #### [address] [place] [phone] Sample Grader: Fidel Hallman MD #### HIVCMB, PHEP #### [address] [phone] Sample Grader: Valdo Diaz MD Hematocrit (Bld) [Volume fraction] 39.7 % Normal 36.3-47.1 [facility] Comment on above: Performed By: #### I PF, HCG, CP, CBC #### [address] [place] [address] Sample Grader: Fidel Hallman MD #### HIVCMB, PHEP #### [address] [phone] Sample Grader: Valdo Diaz MD Hemoglobin (Bld) [Mass/Vol] 12.2 g/dL Normal 11.9-15.1 [facility] Comment on above: Performed By: #### I PF, HCG, CP, CBC #### [address] [place] [address] Sample Grader: Fidel Hallman MD #### HIVCMB, PHEP #### [address] [phone] Sample Grader: Valdo Diaz MD MCH (RBC) [Entitic mass] 27.6 pg Normal 25.2-33.5 [facility] Comment on above: Performed By: #### I PF, HCG, CP, CBC #### [address] [place] [phone] Sample Grader: Fidel Hallman MD #### HIVCMB, PHEP #### [address] [phone] Sample Grader: Valdo Diaz MD MCHC (RBC) [Mass/Vol] 30.7 g/dL Normal 28.4-34.8 [facility] Comment on above: Performed By: #### I PF, HCG, CP, CBC #### [address] [place] [phone] Sample Grader: Fidel Hallman MD #### HIVCMB, PHEP #### [place] [address] Sample Grader: Valdo Diaz MD MCV (RBC) [Entitic vol] 89.8 fL Normal 82.6-102.9 [facility] Comment on above: Performed By: #### I PF, HCG, CP, CBC #### [address] [place] [phone] Sample Grader: Fidel Hallman MD #### HIVCMB, PHEP #### [address] [phone] Sample Grader: Valdo Diaz MD NRBC Automated 0.0 per 100 WBC Normal 0.0 [facility] Comment on above: Performed By: #### I PF, HCG, CP, CBC #### [address] [place] [phone] Sample Grader: Fidel Hallman MD #### HIVCMB, PHEP #### [address] [place] [address] Sample Grader: Valdo Diaz MD Platelet Count See Reflexed IPF Result Normal 138-453 [facility] Comment on above: Performed By: #### I PF, HCG, CP, CBC #### [address] [place] [phone] Sample Grader: Fidel Hallman MD #### HIVCMB, PHEP #### [address] [address] Sample Grader: Valdo Diaz MD RBC (Bld) [#/Vol] 4.42 10*6/uL Normal 3.95-5.11 [facility] Comment on above: Performed By: #### I PF, HCG, CP, CBC #### [address] [place] [phone] Sample Grader: Fidel Hallman MD #### HIVCMB, PHEP #### [address] [address] Sample Grader: Valdo Diaz MD WBC (Bld) [#/Vol] 8.9 10*3/uL Normal 3.5-11.3 [facility] Comment on above: Performed By: #### I PF, HCG, CP, CBC #### [address] [place] [phone] Sample Grader: Fidel Hallman MD #### HIVCMB, PHEP #### [address] [address] Sample Grader: Valdo Diaz MD MPV NOT REPORTED Normal 8.1-13.5 [facility] Comment on above: Performed By: #### I PF, HCG, CP, CBC #### [address] [place] [phone] Sample Grader: Fidel Hallman MD #### HIVCMB, PHEP #### [facility] [employer] [address] [place] [phone] Sample Grader: Valdo Diaz MD Erythrocyte distribution width (RBC) [Ratio] 14.7 % High 11.8 - 14.4 % [place], [place] Hematocrit (Bld) [Volume fraction] 39.7 % 36.3 - 47.1 % [place] Hemoglobin (Bld) [Mass/Vol] 12.2 g/dL 11.9 - 15.1 g/dL [place] Interpretation and review of laboratory results Abnormal [place] MCH (RBC) [Entitic mass] 27.6 pg 25.2 - 33.5 pg [place] MCHC (RBC) [Mass/Vol] 30.7 g/dL 28.4 - 34.8 g/dL [place] MCV (RBC) [Entitic vol] 89.8 fL 82.6 - 102.9 fL [place] Platelet mean volume (Bld) [Entitic vol] NOT REPORTED 8.1 - 13.5 fL [place], [place] Platelets (Bld) [#/Vol] See Reflexed IPF Result [place] RBC (Bld) [#/Vol] 4.42 10*6/uL 3.95 - 5.1 1 m/uL [place] WBC (Bld) [#/Vol] 0.0 10*3/uL 0.0 per 100 WBC [place] WBC (Bld) [#/Vol] 8.9 10*3/uL [place] Comp Metabolic Profon 2019 (cont.) Normal [facility] Comment on above: Result Comment: Aver age GFR for 30-39 years old: 107 mL/min/1.73sq m Chronic Kidney Disease: <60 mL/min/1.73sq m Kidney failure: <15 mL/min/1.73sq m eGFR calculated using average adult body mass. Additional eGFR calculator available at: http://www.[employer]/multiple_crcl_2011.htm Performed By: #### I PF, HCG, CP, CBC #### [facility] [address] [place] [phone] Sample Grader: Fidel Hallman MD #### HIVCMB, PHEP #### [address] [phone] Sample Grader: Valdo Diaz MD Albumin [Mass/Vol] 3.9 g/dL Normal 3.5-5.2 [facility] Comment on above: Performed By: #### I PF, HCG, CP, CBC #### [facility] [address] [place] [phone] Sample Grader: Fidel Hallman MD #### HIVCMB, PHEP #### [address] [phone] Sample Grader: Valdo Diaz MD Albumin/Glob Ratio 1.3 Normal 1.0-2.5 [facility] Comment on above: Performed By: #### I PF, HCG, CP, CBC #### [facility] [address] [place] [address] [address]. [place] [phone] Sample Grader: Fidel Hallman MD #### HIVCMB, PHEP #### [address] [address] Sample Grader: Valdo Diaz MD Alkaline Phos 122 U/L High 35-104 [facility] Comment on above: Performed By: #### I PF, HCG, CP, CBC #### [facility] [address] [place] [address] Dr. [place] [phone] Sample Grader: Fidel Hallman MD #### HIVCMB, PHEP #### [address] [address] Sample Grader: Valdo Diaz MD ALT [Catalytic activity/Vol] 98 U/L High 5-33 [facility] Comment on above: Performed By: #### I PF, HCG, CP, CBC #### [facility] [address] [place], [place] [phone] Sample Grader: Fidel Hallman MD #### HIVCMB, PHEP #### [facility] [address] [place], [place] 8616208 Sample Grader: Valdo Diaz MD Anion gap [Moles/Vol] 11 mmol/L Normal 9-17 [facility] Comment on above: Performed By: #### I PF, HCG, CP, CBC #### [facility] [address] [place], [place] [id number] Sample Grader: Fidel Hallman MD #### HIVCMB, PHEP #### [address] [place], [place] [id number] Sample Grader: Valdo Diaz MD AST [Catalytic activity/Vol] 51 U/L High <32 [facility] Comment on above: Performed By: #### I PF, HCG, CP, CBC #### [facility] [address] [place], [place] [id number] Sample Grader: Fidel Hallman MD #### HIVCMB, PHEP #### [address] [address] [place], [place] [phone] Sample Grader: Valdo Diaz MD Bilirubin [Mass/Vol] 0.20 mg/dL Low 0.3-1.2 [facility] Comment on above: Performed By: #### I PF, HCG, CP, CBC #### [facility] [address] [place], [place] [id number] Sample Grader: Fidel Hallman MD #### HIVCMB, PHEP #### [address] [place] [address] Sample Grader: Valdo Diaz MD BUN/CRE Ratio 14 Normal 9-20 [facility] Comment on above: Performed By: #### I PF, HCG, CP, CBC #### [facility] [address] [place], [place] [id number] Sample Grader: Fidel Hallman MD #### HIVCMB, PHEP #### [address] [address] Sample Grader: Valdo Diaz MD Calcium [Mass/Vol] 9.3 mg/dL Normal 8.6-10.4 [facility] Comment on above: Performed By: #### I PF, HCG, CP, CBC #### [facility] [address] [place], [place] [phone] Sample Grader: Fidel Hallman MD #### HIVCMB, PHEP #### [address] [id number] Sample Grader: Valdo Diaz MD Chloride [Moles/Vol] 109 mmol/L High 98-107 [facility] Comment on above: Performed By: #### I PF, HCG, CP, CBC #### [facility] [address] [place] [address] [place], [place] [phone] Sample Grader: Fidel Hallman MD #### HIVCMB, PHEP #### [address] [phone] Sample Grader: Valdo Diaz MD CO2 [Moles/Vol] 23 mmol/L Normal 20-31 [facility] Comment on above: Performed By: #### I PF, HCG, CP, CBC #### [facility] [address] [place] [address] [place], [place] [phone] Sample Grader: Fidel Hallman MD #### HIVCMB, PHEP #### [address] [address] Sample Grader: Valdo Diaz MD Creatinine [Mass/Vol] 0.69 mg/dL Normal 0.50-0.90 [facility] Comment on above: Performed By: #### I PF, HCG, CP, CBC #### [facility] [address] [place], [place] [phone] Sample Grader: Fidel Hallman MD #### HIVCMB, PHEP #### [address] [phone] Sample Grader: Valdo Diaz MD GFR, Amer >60 Normal >60 [facility] Comment on above: Performed By: #### I PF, HCG, CP, CBC #### [facility] [address] [place], [place] [id number] Sample Grader: Fidel Hallman MD #### HIVCMB, PHEP #### [address] [phone] Sample Grader: Valdo Diaz MD GFR,non Amer >60 Normal >60 [facility] Comment on above: Performed By: #### I PF, HCG, CP, CBC #### [facility] [address] [place] [address] [place], [place] [phone] Sample Grader: Fidel Hallman MD #### HIVCMB, PHEP #### [address] [address] Sample Grader: Valdo Diaz MD Glucose [Mass/Vol] 154 mg/dL High 70-99 [facility] Comment on above: Performed By: #### I PF, HCG, CP, CBC #### [address] [place], [place] [phone] Sample Grader: Fidel Hallman MD #### HIVCMB, PHEP #### [address] [address] Sample Grader: Valdo Diaz MD Potassium [Moles/Vol] 3.9 mmol/L Normal 3.7-5.3 [facility] Comment on above: Performed By: #### I PF, HCG, CP, CBC #### [address] [place], [place] [phone] Sample Grader: Fidel Hallman MD #### HIVCMB, PHEP #### [address] [phone] Sample Grader: Valdo Diaz MD Protein [Mass/Vol] 7.0 g/dL Normal 6.4-8.3 [facility] Comment on above: Performed By: #### I PF, HCG, CP, CBC #### [address] [place] [phone] Sample Grader: Fidel Hallman MD #### HIVCMB, PHEP #### [address] [phone] Sample Grader: Valdo Diaz MD Sodium [Moles/Vol] 143 mmol/L Normal 135-144 [facility] Comment on above: Performed By: #### I PF, HCG, CP, CBC #### [address] [place] [phone] Sample Grader: Fidel Hallman MD #### HIVCMB, PHEP #### [address] [phone] Sample Grader: Valdo Diaz MD Staging: Normal [facility] Comment on above: Result Comment: Stag e 1: Some kidney damage normal GFR Stage 2: Mild kidney damage GFR 60-89 Stage 3: Moderate kidney damage GFR 30-59 Stage 4: Severe kidney damage GFR 15-29 Stage 5: Severe kidney damage GFR <15 ESRD - chronic treatment by dialysis or transplant Performed By: #### I PF, HCG, CP, CBC #### [address] [place] [address] Sample Grader: Fidel Hallman MD #### HIVCMB, PHEP #### [address] [phone] Sample Grader: Valdo Diaz MD Urea nitrogen [Mass/Vol] 10 mg/dL Normal 6-20 [facility] Comment on above: Performed By: #### I PF, HCG, CP, CBC #### [facility] [address] [place] [address] Sample Grader: Fidel Hallman MD #### HIVCMB, PHEP #### [facility] [address] [place], [place] [phone] Sample Grader: Valdo Diaz MD Comprehensive Metabolic Pane [facility] 05-12-2020 Albumin [Mass/Vol] 3.9 g/dL 3.5 - 5.2 g/dL [place], [place] Albumin/Globulin [Mass ratio] 1.3 {ratio} [place], [place] ALP [Catalytic activity/Vol] 122 U/L High 35 - 104 U/L [place] ALT [Catalytic activity/Vol] 98 U/L High 5 - 33 U/L [place] Anion gap [Moles/Vol] 11 mmol/L 9 - 17 mmol/L [place] AST [Catalytic activity/Vol] 51 U/L High <32 [place] Bilirubin Ql (U) 0.20 mg/dL Low 0.3 - 1.2 mg/dL [place], [place] Bun/Cre Ratio 14 [place], [place] Calcium [Mass/Vol] 9.3 mg/dL 8.6 - 10. 4 mg/dL [place] Chloride [Moles/Vol] 109 mmol/L High 98 - 107 mmol/L [place] CO2 [Moles/Vol] 23 mmol/L 20 - 31 mmol/L [place] Creatinine [Mass/Vol] 0.69 mg/dL 0.5 - 0.9 mg/dL [place] GFR >60 >60 mL/min [place], [place] GFR Non- >60 >60 mL/min [place] Glucose [Mass/Vol] 154 mg/dL High 70 - 99 mg/dL [place] Interpretation and review of laboratory results Abnormal [place] Potassium [Moles/Vol] 3.9 mmol/L 3.7 - 5.3 mmol/L [place] Protein [Mass/Vol] 7.0 g/dL 6.4 - 8.3 g/dL [place], [place] Sodium [Moles/Vol] 143 mmol/L 135 - 144 mmol/L [place] Urea nitrogen [Mass/Vol] 10 mg/dL 6 - 20 mg/dL [place] HCG Qualitative, Serumon hCG Qual Negative NEGATIVE [place] Comment on above: Specimens with hCG l evels near the threshold of the test (25 mIU/mL) may give a negative or indeterminate result. In such cases, another test should be performed with a new specimen in 48-72 hours. If early is suspected clinically in this setting, correlation with quantitative serum b-hCG level is suggested. [facility] has confirmed the use of plasma for this test. This has not been cleared or approved by the U.S. Food and Drug Administration. The FDA has determined that such clearance is not necessary. HCG Screen, Bloodon 05-12-20 20 HCG Screen, Blood Negative Normal NEG [facility] Comment on above: Result Comment: Spec imens with hCG levels near the threshold of the test (25 mIU/mL) may give a negative or indeterminate result. In such cases, another test should be performed with a new specimen in 48-72 hours. If early is suspected clinically in this setting, correlation with quantitative serum b-hCG level is suggested. [facility] has confirmed the use of plasma for this test. This has not been cleared or approved by the U.S. Food and Drug Administration. The FDA has determined that such clearance is not necessary. Performed By: #### I PF, HCG, CP, CBC #### [facility] [address] [place] [place] [address] Sample Grader: Fidel Hallman MD #### HIVCMB, PHEP #### [address] [place] [address] Sample Grader: Valdo Diaz MD HIV Ag/Abon 05-12-2020 HIV Ag/Ab Non-Reactive Normal NR [facility] Comment on above: Result Comment: No l aboratory evidence of HIV infection. If acute HIV infection is suspected, consider testing for HIV-1 RNA. Performed By: #### I PF, HCG, CP, CBC #### [address] [place], [place] [phone] Sample Grader: Fidel Hallman MD #### HIVCMB, PHEP #### [address] [address] Sample Grader: Valdo Diaz MD HIV Screenon 05-12-2020 HIV Ag/Ab NONREACTIVE NONREACTIVE [place], [place] Comment on above: No laboratory eviden ce of HIV infection. If acute HIV infection is suspected, consider testing for HIV-1 RNA. Hepatitis Acute [facility] 05-12 Hep A Ab,IgM Non-Reactive Normal [facility] Comment on above: Performed By: #### I PF, HCG, CP, CBC #### [address] [place], [place] [phone] Sample Grader: Fidel Hallman MD #### HIVCMB, PHEP #### [address] [address] Sample Grader: Valdo Diaz MD Hep B Core Ab,IgM Non-Reactive Normal [facility] Comment on above: Performed By: #### I PF, HCG, CP, CBC #### [address] [place] [address] Sample Grader: Fidel Hallman MD #### HIVCMB, PHEP #### [address] [address] Sample Grader: Valdo Diaz MD Hep B Surf Ag Non-Reactive Normal [facility] Comment on above: Performed By: #### I PF, HCG, CP, CBC #### [address] [place], [place] [id number] Sample Grader: Fidel Hallman MD #### HIVCMB, PHEP #### [facility] [address] [place], [place] [phone] Sample Grader: Valdo Diaz MD Hep C Ab Reactive Abnormal NR [facility] Comment on above: Result Comment: The hepatitis [...] #### I PF, HCG, CP, CBC #### [facility] [address] [place] [address] Sample Grader: Fidel Hallman MD #### HIVCMB, PHEP #### [address] [place], [place] [phone] Sample Grader: Valdo Diaz MD Hepatitis Panel, Acuteon HAV IgM IA Qn (S) NONREACTIVE NONREACTIVE [place], [place] Hep B Core Ab, IgM NONREACTIVE NONREACTIVE [place] Hepatitis B Surface Ag NONREACTIVE NONREACTIVE [place] Hepatitis C Ab REACTIVE Abnormal NONREACTIVE [place], [place] Comment on above: The hepatitis C [...] Interpretation and review of laboratory results Abnormal [place] Immature Platelet Fractionon 05-12-2020 Interpretation and review of laboratory results Abnormal [place] Platelet, Fluorescence 103 Low [place] Platelet, Immature Fraction 15.6 % High 1.1 - 10.3 % [place] Metabolic Panelon 05-12-2020 GFR/1.73 sq M predicted among non-blacks MDRD (S/P/Bld) [Vol rate/Area] [facility], [place] Comment on above: Average GFR for 30-3 9 years old: 107 mL/min/1.73sq m Chronic Kidney Disease: <60 mL/min/1.73sq m Kidney failure: <15 mL/min/1.73sq m eGFR calculated using average adult body mass. Additional eGFR calculator available at: http://[email or web address]/multiple_crcl_2012.htm Stage 1: Some kidney damage normal GFR Stage 2: Mild kidney damage GFR 60-89 Stage 3: Moderate kidney damage GFR 30-59 Stage 4: Severe kidney damage GFR 15-29 Stage 5: Severe kidney damage GFR <15 ESRD - chronic treatment by dialysis or transplant PLT, Immature Fract.on 05-12 Platelet, Fluoresc. 103 k/uL Low 138-453 [facility] Comment on above: Performed By: #### I PF, HCG, CP, CBC #### [facility] [address] [place] [address] Sample Grader: Fidel Hallman MD #### HIVCMB, PHEP #### [facility] [address] [place] [address] Sample Grader: Valdo Diaz MD PLT, Immature Fract. 15.6 % High 1.1-10.3 [facility] Comment on above: Performed By: #### I PF, HCG, CP, CBC #### [facility] [address] [place] [address] Sample Grader: Fidel Hallman MD #### HIVCMB, PHEP #### [facility] [address] [place] [address] Sample Grader: Valdo Diaz MD Ur Opiate Conf-Mayoon 2019 Ur Codeine-Hung 64 ng/mL Normal Cutoff: 25 [facility] Comment on above: Performed By: #### C BC #### [facility] [address] [place] [address] Ur Dihydrocodeine-Hung Negative Normal Cutoff: 25 [facility] Comment on above: Performed By: #### C BC #### [address] [place] [address] Ur Hydrocodone-Hung Negative Normal Cutoff: 25 [facility] Comment on above: Performed By: #### C BC #### [address] [place] [address] Ur Hydromorphone-Hung Negative Normal Cutoff: 25 [facility] Comment on above: Performed By: #### C BC #### [address] [place] [address] Ur Morphine-Hung 1231 ng/mL Normal Cutoff: 25 [facility] Comment on above: Performed By: #### C BC #### [address] [place] [address] Ur Naloxone-Hung Negative Normal Cutoff: 25 [facility] Comment on above: Performed By: #### C BC #### [address] [place] [address] Ur Norhydrocodone-Hung Negative Normal Cutoff: 25 [facility] Comment on above: Performed By: #### C BC #### [address] [place] [address] Ur Noroxycodone-Hung Negative Normal Cutoff: 25 [facility] Comment on above: Performed By: #### C BC #### [address] [place] [address] Ur Noroxymorphone-Hung Negative Normal Cutoff: 25 [facility] Comment on above: Performed By: #### C BC #### [address] [place] [address] Ur Opiates Interp-Hung Positive Normal [facility] Comment on above: Result Comment: ADDITIONAL INFORMATION This report is intended for use in clinical monitoring and management of patients. It is not intended for use in employment-related testing. This test was developed and its performance characteristics determined by [facility] in a manner consistent with CLIA requirements. This test has not been cleared or approved by the U.S. Food and Drug Administration. Test Performed by: [place] [address] Sample Grader: Santiago Mendoza M.D. Ph.D.; CLIA# [id number] Performed By: #### C BC #### [address] [address] Ur Oxycodone-[place] Negative Normal Cutoff: 25 [facility] Comment on above: Performed By: #### C BC #### [address] [address] Ur Oxymorphone-[place] Negative Normal Cutoff: 25 [facility] Comment on above: Performed By: #### C BC #### [address] [address] HBc Total Abs-[facility] 020 HBc Total Ab-[place] Negative Normal Negative [facility] Comment on above: Result Comment: Test Performed by: [place] [address] Sample Grader: Santiago Mendoza M.D. Ph.D.; CLIA# [id number] Performed By: #### C BC #### [address] [address] HCV RNA Qnt-[facility] 0 HepC RNA PCR Qnt-[place] 253730 IU/mL Abnormal Undetected [facility] Comment on above: Result Comment: Resu lt in log IU/mL is 5.71. ADDITIONAL INFORMATION The quantification range of this assay is 15 to 100,000,000 IU/mL (1.18 log to 8.00 log IU/mL). Testing was performed using the kendrick HCV test ([employer] with the kendrick [employer] System. Test Performed by: [address] [address] Sample Grader: Santiago Mendoza M.D. Ph.D.; CLIA# [id number] Performed By: #### C BC #### [address] [address] .eGFRon 12-03-2019 eGFR AA >60 Normal >=60 [facility] Comment on above: Order Comment: Order added by Discern rule Result Comment: Resu lt = 0-14.9 mL/min/1.73 m2 Kidney failure or Dialysis Result = 15-29 mL/min/1.73 m2 Severe decrease in GFR Result = 30-59 mL/min/1.73 m2 Moderate decrease in GFR Result >= 60 mL/min/1.73 m2 Normal or increased GFR Performed By: #### . Automated Diff #### [address] [address] eGFR Non-AA >60 Normal >=60 [facility] Comment on above: Order Comment: Order added [...] Performed By: #### . Automated Diff #### [address] [address] CMPon 12-03-2019 Albumin [Mass/Vol] 3.4 g/dL Normal 3.2-4.9 [facility] Comment on above: Result Comment: [facility] Laboratory updated the methodology used for albumin testing on 02/06/18. Albumin measurement was performed using a bromcresol purple dye-binding assay. Performed By: #### . Automated Diff #### [address] [address] Albumin/Globulin [Mass ratio] 1.1 {ratio} Normal 1.1-2.2 [facility] Comment on above: Performed By: #### . Automated Diff #### [address] [address] Alk Phos 120 IU/L High 32-91 [facility] Comment on above: Performed By: #### . Automated Diff #### [address] [address] ALT [Catalytic activity/Vol] 76 U/L High 14-54 [facility] Comment on above: Performed By: #### . Automated Diff #### [address] [address] Anion gap [Moles/Vol] 13 mmol/L Normal 7-17 [facility] Comment on above: Performed By: #### . Automated Diff #### [address] [address] AST [Catalytic activity/Vol] 53 U/L High 15-41 [facility] Comment on above: Performed By: #### . Automated Diff #### [address] [address] Bili Total 0.5 mg/dL Normal 0.3-1.2 [facility] Comment on above: Performed By: #### . Automated Diff #### [address] [address] Calcium [Mass/Vol] 8.7 mg/dL Normal 8.5-10.3 [facility] Comment on above: Performed By: #### . Automated Diff #### [address] [address] Chloride [Moles/Vol] 104 mmol/L Normal 98-110 [facility] Comment on above: Performed By: #### . Automated Diff #### [address] [address] CO2 [Moles/Vol] 26 mmol/L Normal 22-32 [facility] Comment on above: Performed By: #### . Automated Diff #### [address] [address] Creatinine [Mass/Vol] 0.75 mg/dL Normal 0.44-1.03 [facility] Comment on above: Performed By: #### . Automated Diff #### [address] [address] Glucose [Mass/Vol] 100 mg/dL High 70-99 [facility] Comment on above: Performed By: #### . Automated Diff #### [address] [address] Potassium [Moles/Vol] 3.7 mmol/L Normal 3.4-4.8 [facility] Comment on above: Performed By: #### . Automated Diff #### [address] [address] Protein [Mass/Vol] 6.5 g/dL Normal 6.5-8.1 [facility] Comment on above: Performed By: #### . Automated Diff #### [address] [address] Sodium [Moles/Vol] 139 mmol/L Normal 133-142 [facility] Comment on above: Performed By: #### . Automated Diff #### [address] [address] Urea nitrogen [Mass/Vol] 15 mg/dL Normal 8-26 [facility] Comment on above: Performed By: #### . Automated Diff #### [address] [address] Urea nitrogen/Creatinine [Mass ratio] 20.0 mg/mg Normal 10.0-20.0 [facility] Comment on above: Performed By: #### . Automated Diff #### [address] [address] Chlam & GC, DNAon 12-03-2019 Chlamydia, DNA Negative Normal Negative [facility] Comment on above: Result Comment: The APTIMA [...] clinician. Performed By: #### C BC #### [place] [address] Gonorrhea, DNA Negative Normal Negative [facility] Comment on above: Result Comment: The APTIMA [...] clinician. Performed By: #### C BC #### [place] [address] Inpatient Clinical Summaryon 12-03-2019 [place] [address] [place] [address] Clinical Summary Person Information Name: Farideh Peoples Age: 34 Years : 1985 Sex: Female PCP: Marital Status: Single Phone: PCP: Race: White Ethnicity: Not or Language: Norwegian Visit Id: Visit Reason: Drug withdrawal Speciality: Acuity: Enc Type: Observation Med Service: X Medication Withdrawal Management Arrival: 12/02/2019 03:53:05 Discharge: Dispo Type: Place in Observation Address: [address] [place] [id number] Diagnosis: 1:Heroin addiction; 2:Tobacco user; 3:Transaminitis; 4:Hepatitis [...] 12/03/19 12:52:00 EDT, 1 to 2 days, [facility] as scheduled tomorrow. Allergies No Known [...] range between ( 27.2 and 40.8 ) [place] Auto: 4.2 % -- Normal range between [...] range between ( 36.0 and 46.0 ) [place] Absolute: 0.4 x10 MCH: 28.6 pg -- [...] YOUR HOSPITAL STAY New Medications [facility], 2019 [place], [place] [id number], [phone] baclofen (baclofen 10 mg oral tablet) 10 [...] OF YOUR PATIENT?S CURRENT MEDICATIONS [facility], 2019 [place], [place] [id number], [phone] baclofen (baclofen 10 mg oral tablet) 10 [...] Follow up: With: Address: When: [facility] [address] [place] [address] 12/08/2019 12:30:00 Comments: Intake and diagnostic assessment With: Address: When: [facility] [address] [place] [address] 12/04/2019 13:00:00 Comments: Case management appointment Normal [facility] Lipid Panelon 12-03-2019 Cholesterol in LDL [Mass/Vol] 97 mg/dL Normal 0-99 [facility] Comment on above: Result Comment: The equation being used in this calculation is LDL = (Chol - HDL) - (Trig / 5) The optimal value of LDL for individual patients may vary. The patient's history of Artherosclerosis and other cardiac risk factors should be considered. Performed By: #### . Automated Diff #### [address] [address] Cardiac Risk 6.3 Normal [facility] Comment on above: Result Comment: Men Women 1/2 Average 3.43 3.27 Average 4.97 4.44 2x Average 9.55 7.05 3x Average 23.99 11.04 Performed By: #### . Automated Diff #### [address] [address] Cholesterol [Mass/Vol] 151 mg/dL Normal 25-199 [facility] Comment on above: Result Comment: 0 - 17 years of age: Desirable 0-170 Borderline High 170-199 High >=200 18 years and older: Acceptable <200 Borderline High 200-239 High >=240 Performed By: #### . Automated Diff #### [address] [address] Cholesterol in HDL [Mass/Vol] 24.0 mg/dL Low 40.0-60.0 [facility] Comment on above: Performed By: #### . Automated Diff #### [address] [address] Cholesterol in VLDL [Mass/Vol] 30 mg/dL Normal 8-39 [facility] Comment on above: Performed By: #### . Automated Diff #### [address] [address] Triglyceride [Mass/Vol] 152 mg/dL Normal [facility] Comment on above: Result Comment: 0 - 17 years of age: Trig 90 - 129 Borderline High Trig => 130 High 18 years and older: Trig 150 - 199 Borderline High Trig 200 - 499 High Trig =>500 Very High Performed By: #### . Automated Diff #### [address] [address] .eGFRon 12-02-2019 eGFR AA >60 Normal >=60 [facility] Comment on above: Result Comment: Resu lt = 0-14.9 mL/min/1.73 m2 Kidney failure or Dialysis Result = 15-29 mL/min/1.73 m2 Severe decrease in GFR Result = 30-59 mL/min/1.73 m2 Moderate decrease in GFR Result >= 60 mL/min/1.73 m2 Normal or increased GFR Performed By: #### E GFR #### [address] [address] eGFR Non-AA >60 Normal >=60 [facility] Comment on above: Result Comment: Resu lt [...] dosing. Performed By: #### E GFR #### [address] [address] CBC w/ Diffon 12-02-2019 Erythrocyte distribution width (RBC) [Ratio] 15.1 % High 11.6-14.8 [facility] Comment on above: Performed By: #### C BC #### [address] [address] Hematocrit (Bld) [Volume fraction] 35.2 % Low 36.0-46.0 [facility] Comment on above: Performed By: #### C BC #### [address] [address] Hemoglobin (Bld) [Mass/Vol] 11.9 g/dL Low 12.0-16.0 [facility] Comment on above: Performed By: #### C BC #### [address] [address] MCH (RBC) [Entitic mass] 28.6 pg Normal 27.0-35.0 [facility] Comment on above: Performed By: #### C BC #### [address] [address] MCHC (RBC) [Mass/Vol] 33.9 % Normal 31.0-37.0 [facility] Comment on above: Performed By: #### C BC #### [address] [address] MCV (RBC) [Entitic vol] 84.4 fL Normal 80.0-100.0 [facility] Comment on above: Performed By: #### C BC #### [address] [address] Platelet mean volume (Bld) [Entitic vol] 11.6 fL High 6.7-10.6 [facility] Comment on above: Performed By: #### C BC #### [address] [address] Platelets (Bld) [#/Vol] 94 x10*3/mcL Low 150-350 [facility] Comment on above: Performed By: #### C BC #### [address] [address] RBC (Bld) [#/Vol] 4.17 x10*6/mcL Normal 3.80-5.20 [facility] Comment on above: Performed By: #### C BC #### [address] [address] WBC (Bld) [#/Vol] 10.0 x10*3/mcL Normal 4.5-11.0 [facility] Comment on above: Performed By: #### C BC #### [address] [address] [facility] 12-02-2019 Albumin [Mass/Vol] 4.3 g/dL Normal 3.2-4.9 [facility] Comment on above: Result Comment: [facility] Laboratory updated the methodology used for albumin testing on 02/06/18. Albumin measurement was performed using a bromcresol purple dye-binding assay. Performed By: #### C OMP #### [address] [address] Albumin/Globulin [Mass ratio] 1.3 {ratio} Normal 1.1-2.2 [facility] Comment on above: Performed By: #### C OMP #### [address] [place] [address] Alk Phos 143 IU/L High 32-91 [facility] Comment on above: Performed By: #### C OMP #### [address] [place] [address] ALT [Catalytic activity/Vol] 74 U/L High 14-54 [facility] Comment on above: Performed By: #### C OMP #### [address] [place] [address] Anion gap [Moles/Vol] 15 mmol/L Normal 7-17 [facility] Comment on above: Performed By: #### C OMP #### [address] [address] AST [Catalytic activity/Vol] 47 U/L High 15-41 [facility] Comment on above: Performed By: #### C OMP #### [address] [address] Bili Total 0.4 mg/dL Normal 0.3-1.2 [facility] Comment on above: Performed By: #### C OMP #### [address] [address] Calcium [Mass/Vol] 9.2 mg/dL Normal 8.5-10.3 [facility] Comment on above: Performed By: #### C OMP #### [address] [address] Chloride [Moles/Vol] 99 mmol/L Normal 98-110 [facility] Comment on above: Performed By: #### C OMP #### [address] [place] [address] CO2 [Moles/Vol] 25 mmol/L Normal 22-32 [facility] Comment on above: Performed By: #### C OMP #### [address] [place] [address] Creatinine [Mass/Vol] 0.83 mg/dL Normal 0.44-1.03 [facility] Comment on above: Performed By: #### C OMP #### [address] [address] Glucose [Mass/Vol] 90 mg/dL Normal 70-99 [facility] Comment on above: Performed By: #### C OMP #### [address] [address] Potassium [Moles/Vol] 3.4 mmol/L Normal 3.4-4.8 [facility] Comment on above: Performed By: #### C OMP #### [address] [address] Protein [Mass/Vol] 7.7 g/dL Normal 6.5-8.1 [facility] Comment on above: Performed By: #### C OMP #### [address] [address] Sodium [Moles/Vol] 136 mmol/L Normal 133-142 [facility] Comment on above: Performed By: #### C OMP #### [address] [address] Urea nitrogen [Mass/Vol] 15 mg/dL Normal 8-26 [facility] Comment on above: Performed By: #### C OMP #### [address] [address] Urea nitrogen/Creatinine [Mass ratio] 18.1 mg/mg Normal 10.0-20.0 [facility] Comment on above: Performed By: #### C OMP #### [address] [address] Diff [employer] 12-02-2019 Baso Absolute 0.0 x10*3/mcL Normal 0.0-0.2 [facility] Comment on above: Performed By: #### . Automated Diff #### [address] [address] Basophils/100 WBC (Bld) 0.4 % Normal 0.0-1.5 [facility] Comment on above: Performed By: #### . Automated Diff #### [address] [place] [address] Eos Absolute 0.4 x10*3/mcL Normal 0.0-0.4 [facility] Comment on above: Performed By: #### . Automated Diff #### [address] [address] Eosinophils/100 WBC (Bld) 3.7 % Normal 0.0-5.4 [facility] Comment on above: Performed By: #### . Automated Diff #### [address] [address] Lymphocytes (Bld) [#/Vol] 3.2 x10*3/mcL Normal 1.0-4.8 [facility] Comment on above: Performed By: #### . Automated Diff #### [address] [address] Lymphocytes/100 WBC (Bld) 31.5 % Normal 27.2-40.8 [facility] Comment on above: Performed By: #### . Automated Diff #### [address] [address] [place] Absolute 0.4 x10*3/mcL Normal 0.1-1.1 [facility] Comment on above: Performed By: #### . Automated Diff #### [address] [address] Monocytes/100 WBC (Bld) 4.2 % Normal 3.7-11.9 [facility] Comment on above: Performed By: #### . Automated Diff #### [address] [address] Neutro Absolute 6.0 x10*3/mcL Normal 1.8-7.7 [facility] Comment on above: Performed By: #### . Automated Diff #### [address] [address] Neutro Auto 60.2 % Normal 47.2-70.8 [facility] Comment on above: Performed By: #### . Automated Diff #### [address] [address] ED Clinical Summaryon 2019 ED Clinical Summary [address] [address] ED Clinical Summary Person Information Name: Farideh Peoples [place] Age: 34 Years : 1985 Sex: Female PCP: Marital Status: Single Phone: Race: White Ethnicity: Not or Language: Norwegian [facility]: [id number] Visit Reason: Drug withdrawal; Drug withdrawal Acuity: 3 Enc Type: Observation Med Service: X Medication Withdrawal Management Arrival: 12/02/2019 03:53:05 Discharge: LOS: 000 04:16 Checkin: 12/02/2019 03:53:05 Checkout: 12/02/2019 08:09:13 Dispo Type: Place in Observation Address: [address] [place] [address] Provider Notes: Diagnosis: 1:Heroin addiction Problems No [...] range between ( 27.2 and 40.8 ) [place] Auto: 4.2 % -- Normal range between [...] range between ( 36.0 and 46.0 ) [place] Absolute: 0.4 x10 MCH: 28.6 pg -- [...] EDT, Medical/Surgical 5th floor Patient Education Information: [facility] Poison Help line: . [place] [facility] Hotline: [place] Tobacco Quit Line: [place], [place]) [address]: [phone] [place], [place]) [address]: [phone] [facility] [address] [place]: [phone] Normal [facility] ED Note-Physicianon 12-02-19 ED Note-Physician seen by psychiatric social worker supervisor, admitted to [facility] program Electronically signed by Nakita YEAGER, Benita Maldonadosukhjinder 12/02/19 08:16 EDT Normal [facility] ED Note-Physician Chief Complaint Patient reports she [...] 04:43 60.2 Lymph Auto 12/02/19 04:43 31.5 [place] Auto 12/02/19 04:43 4.2 Eos Auto 12/02/19 04:43 3.7 Basophil Auto 12/02/19 04:43 0.4 Neutro Absolute 12/02/19 04:43 6.0 Lymph Absolute 12/02/19 04:43 3.2 [place] Absolute 12/02/19 04:43 0.4 Eos Absolute 12/02/19 [...] YEAGER, Nestor Amaya 12/02/19 19:07 EDT Normal [facility] Ethanolon 12-02-2019 Ethanol [Mass/Vol] mg/dL Normal <=9 [facility] Comment on above: Result Comment: To c onvert mg/dL to g/dL, divide result by 1,000. Legal limit of intoxication is 80 mg/dL (0.08 g/dL). Performed By: #### A LC #### [address] [address] Fentanyl Scn without Confirm , Uron 12-02-2019 Ur Fentanyl Scrn Presumptive Pos Abnormal NEG <1.0 [facility] Comment on above: Result Comment: Urin [...] Performed By: #### . Automated Diff #### [place] [address] Ur Fentanyl Scrn Qnt 3.03 ng/mL High <=0.99 [facility] Comment on above: Performed By: #### . Automated Diff #### [place] [id number] HIV1/2 Ab,Ag Scnon 0 HIV-1/2 Ab,Ag 0.21 [facility] Comment on above: Performed By: #### . Automated Diff #### [place] [address] HIV-1/2 Ab,Ag Interp Normal Negative [facility] Comment on above: Result Comment: N egative Negative Performed By: #### . Automated Diff #### [place] [id number] Hep Scrn Chron 12-02-2019 HCV Signal to Cutoff Ratio 36.20 [facility] Comment on above: Performed By: #### . Automated Diff #### [place] [address] Hep B Surface Antibody Interp Negative [facility] Comment on above: Result Comment: Helga ent is considered to be not immune to infection. Performed By: #### . Automated Diff #### [place] [address] Hep Bs Ab <5.0 [facility] Comment on above: Performed By: #### . Automated Diff #### [place] [address] Hep Bs Ag Interp Normal Negative [facility] Comment on above: Result Comment: Ne gative Negative Performed By: #### . Automated Diff #### [facility] [address] [place] [address] Hep C IgG Interp Abnormal Negative [facility] Comment on above: Result Comment: Re [...] Performed By: #### . Automated Diff #### [facility] [address] [place] [address] History and Physicalon 12-01 History and Physical [...] Care Directive: unknown Health Care Power of Supervisor [place] or next of kin: unknown Family Updated: [...] Oral, QID, PRN cloNIDine, 0.1 mg, Oral, [id number] Times cloNIDine, 0.2 mg, Oral, [id number]-[id number] Times cloNIDine, 0.1 mg, Oral, q4hr, PRN [...] by Nhi Posada 12/02/19 11:58 EDT Normal [facility] RPR Screenon 12-02-2019 RPR Ql Non-Reactive Normal Non-Reactive [facility] Comment on above: Performed By: #### . Automated Diff #### [facility] [address] [place] [address] TSHon 12-02-2019 TSH Qn 3.77 mcIU/mL Normal 0.45-5.33 [facility] Comment on above: Result Comment: Refe rence Ranges for individuals from to 18 years of age were obtained from The Kathryn Cortes Handbook (20 ed) published by . Reference Ranges for Females: Females, 1st Trimester 0.05 ? 3.7 uIU/mL Females, 2nd Trimester 0.31 ? 4.35 uIU/mL Females, 3rd Trimester 0.41 ? 5.18 uIU/mL Performed By: #### T SH #### [address] [address] UDS Compon 12-02-2019 UA pH 5.0 Normal 4.5 - 7.8 [facility] Comment on above: Performed By: #### C [id number] #### [address] [address] UA Spec Grav 1.029 Normal 1.003-1.035 [facility] Comment on above: Performed By: #### C [id number] #### [address] [address] Creatinine [Mass/Vol] 351.3 mg/dL Normal [facility] Comment on above: Performed By: #### C [id number] #### [address] [address] Ur Amph Scrn Negative Normal NEG = <1000 [facility] Comment on above: Performed By: #### C [id number] #### [address] [address] Ur Reyna Scrn Negative Normal NEG = <200 [facility] Comment on above: Performed By: #### C [id number] #### [address] [address] Ur Benzodia Scrn Negative Normal NEG = <200 [facility] Comment on above: Performed By: #### C [id number] #### [address] [address] Ur Cannab Scrn Negative Normal NEG = <50 [facility] Comment on above: Performed By: #### C [id number] #### [address] [address] Ur Cocaine Scrn Negative Normal NEG = <300 [facility] Comment on above: Performed By: #### C [id number] #### [address] [address] Ur Methadone Scn Negative Normal NEG = <300 [facility] Comment on above: Performed By: #### C [id number] #### [address] [address] Ur Opiate Scrn Positive Abnormal NEG = <300 [facility] Comment on above: Result Comment: This unconfirmed positive screening result is to be used for medical treatment purposes only. Unconfirmed screening results must not be used for non-medical purposes. (e.g. employment testing, legal testing). Performed By: #### C [id number] #### [address] [address] Ur Oxy Screen Negative Normal NEG = <100 [facility] Comment on above: Performed By: #### C [id number] #### [address] [address] Ur Oxy Scrn Qnt 24 ng/mL Normal <=99 [facility] Comment on above: Performed By: #### C [id number] #### [address] [address] Ur PCP Scrn Negative Normal NEG = <25 [facility] Comment on above: Performed By: #### C [id number] #### [address] [address] UDS Comp/Con 12-02-2019 Creatinine [Mass/Vol] 45.1 mg/dL Normal [facility] Comment on above: Performed By: #### . Automated Diff #### [address] [address] Ur Amph Scrn w/Conf Negative Normal NEG = <1000 [facility] Comment on above: Performed By: #### . Automated Diff #### [address] [address] Ur Reyna Scrn w/Conf Negative Normal NEG = <200 [facility] Comment on above: Performed By: #### . Automated Diff #### [address] [address] Ur Benzodia Scrn w/Conf Negative Normal NEG = <200 [facility] Comment on above: Performed By: #### . Automated Diff #### [address] [address] Ur Cannab Scrn w/Conf Negative Normal NEG = <50 [facility] Comment on above: Performed By: #### . Automated Diff #### [address] [address] Ur Cocaine Scrn w/Conf Negative Normal NEG = <300 [facility] Comment on above: Performed By: #### . Automated Diff #### [address] [address] Ur Methadone Scrn w/Conf Negative Normal NEG = <300 [facility] Comment on above: Performed By: #### . Automated Diff #### [address] [address] Ur Opiate Scrn w/Conf Positive Abnormal NEG = <300 [facility] Comment on above: Result Comment: This unconfirmed positive screening result is to be used for medical treatment purposes only. Confirmation testing will be performed using an alternate method. Performed By: #### . Automated Diff #### [address] [place] [address] Ur Oxy Screen w/Conf Negative Normal NEG = <100 [facility] Comment on above: Performed By: #### . Automated Diff #### [address] [address] Ur Oxy Scrn Qnt w/Confirm 2 ng/mL Normal <=99 [facility] Comment on above: Performed By: #### . Automated Diff #### [address] [address] Ur PCP Scrn w/Conf Negative Normal NEG = <25 [facility] Comment on above: Performed By: #### . Automated Diff #### [place] [address] [place] [address] UA pH 6.0 Normal 4.5 - 7.8 [facility] Comment on above: Performed By: #### . Automated Diff #### [place] [address] [place] [address] UA Spec Grav 1.004 Normal 1.003-1.035 [facility] Comment on above: Performed By: #### . Automated Diff #### [place] [address] Vital Signs Date Time Vital Sign Value Performing Clinician Facility 09-08-2024 14:24-0400 Body height 154.9 cm Rony Cox MICROFILMING DOCUMENT PREPARER-DAY SPA MANAGER Work Phone: [facility] 09-08-2024 14:24-0400 Body mass index (BMI) [Ratio] 41.46 kg/m2 Rony Cox MICROFILMING DOCUMENT PREPARER-DAY SPA MANAGER Work Phone: [facility] 09-08-2024 14:24-0400 Body temperature 98.6 [degF] Ronylamonte Cox APRN-DAY SPA MANAGER Work Phone: [facility] 09-08-2024 14:24-0400 Body weight 99.52 kg Rony Cox MICROFILMING DOCUMENT PREPARER-DAY SPA MANAGER Work Phone: [facility] 09-08-2024 14:24-0400 Diastolic blood pressure 98 mm[Hg] Rony Cox MICROFILMING DOCUMENT PREPARER-DAY SPA MANAGER Work Phone: [facility] 09-08-2024 14:24-0400 Heart rate 106 /min Rony Cox MICROFILMING DOCUMENT PREPARER-DAY SPA MANAGER Work Phone: [facility] 09-08-2024 14:24-0400 Respiratory rate 18 /min Rony Cox MICROFILMING DOCUMENT PREPARER-DAY SPA MANAGER Work Phone: [facility] 09-08-2024 14:24-0400 SaO2% (BldA) [Mass fraction] 99 % Rony Cox MICROFILMING DOCUMENT PREPARER-DAY SPA MANAGER Work Phone: [facility] 09-08-2024 14:24-0400 Systolic blood pressure 150 mm[Hg] Rony Cox MICROFILMING DOCUMENT PREPARER-DAY SPA MANAGER Work Phone: [facility] 08-19-2024 09:49-0500 Body mass index (BMI) [Ratio] 41.19 kg/m2 Aurelio Jaden DO Work Phone: [facility] 08-19-2024 09:49-0500 Body weight 98.88 kg Aurelio Jaden DO Work Phone: [facility] 08-19-2024 09:49-0500 Diastolic blood pressure 100 mm[Hg] Aurelio Jaden DO Work Phone: [facility] 08-19-2024 09:49-0500 Systolic blood pressure 144 mm[Hg] Aurelio Jaden DO Work Phone: [facility] 07-14-2024 13:03-0500 Body height 154.9 cm Rony Cox MICROFILMING DOCUMENT PREPARER-DAY SPA MANAGER Work Phone: [facility] 07-14-2024 13:03-0500 Body mass index (BMI) [Ratio] 39.53 kg/m2 Rony Cox MICROFILMING DOCUMENT PREPARER-DAY SPA MANAGER Work Phone: [facility] 07-14-2024 13:03-0500 Body temperature 99 [degF] Rony Cox MICROFILMING DOCUMENT PREPARER-DAY SPA MANAGER Work Phone: [facility] 07-14-2024 13:03-0500 Body weight 94.89 kg Rony Cox MICROFILMING DOCUMENT PREPARER-DAY SPA MANAGER Work Phone: [facility] 07-14-2024 13:03-0500 Diastolic blood pressure 80 mm[Hg] Rony Cox MICROFILMING DOCUMENT PREPARER-DAY SPA MANAGER Work Phone: [facility] 07-14-2024 13:03-0500 Heart rate 100 /min Rony Cox APRN-DAY SPA MANAGER [facility] 07-14-2024 13:03-0500 Respiratory rate 18 /min Rony Cox APRN-DAY SPA MANAGER [facility] 07-14-2024 13:03-0500 SaO2% (BldA) [Mass fraction] 99 % Rony Cox APRN-DAY SPA MANAGER [facility] 07-14-2024 13:03-0500 Systolic blood pressure 120 mm[Hg] Rony Cox APRN-DAY SPA MANAGER Work Phone: [facility] [employer] Encounters Encounter Date Encounter Type Care Provider Facility Start: 09-11-2024 End: 09-11-2024 Orders Only Rony Carla Kenny MICROFILMING DOCUMENT PREPARER-DAY SPA MANAGER Work Phone: [facility] Start: 09-09-2024 End: 09-11-2024 Telephone encounter Jumana Natasha [facility] Start: 09-08-2024 End: 09-08-2024 Office outpatient visit 15 minutes Rony Cox APRN-DAY SPA MANAGER Work Phone: [facility] Comment on above: Benign essential HTN (Primary Dx) Start: 09-08-2024 End: 09-08-2024 ambulatory RONYYUDITH COX [facility] Start: 09-07-2024 End: 09-08-2024 Refill Rony Cox MICROFILMING DOCUMENT PREPARER-DAY SPA MANAGER Work Phone: [facility] Comment on above: Migraine without aur a and without status migrainosus, not intractable Start: 09-01-2024 End: 09-03-2024 Clinisync Result Encounter Aurelio Jaden DO Work Phone: [facility] External Department Unsolicited Start: 09-01-2024 End: 09-03-2024 Clinisync Result Encounter Aurelio Jaden DO Work Phone: [facility] External Department Unsolicited Start: 08-19-2024 End: 08-19-2024 Bamboo flowsheet Aurelio Jaden DO Work Phone: [facility] Start: 08-19-2024 End: 08-19-2024 Bamboo flowsheet Aurelio Jaden DO Work Phone: [facility] Start: 08-19-2024 End: 08-19-2024 ambulatory AURELIO JADEN Not Available Start: 08-19-2024 End: 08-19-2024 Office outpatient visit 15 minutes Aurelio Jaden DO Work Phone: [facility] Comment on above: Pre-op examination; Pelvic pain in female Start: 08-19-2024 End: 08-19-2024 Preprocedural examination done Aurelio Ajden DO Work Phone: [facility] Start: 08-11-2024 End: 08-11-2024 Refill Rony Cox MICROFILMING DOCUMENT PREPARER-DAY SPA MANAGER Work Phone: [facility] Comment on above: Lumbar back pain wit h radiculopathy affecting left lower extremity Start: 07-15-2024 End: 07-15-2024 Orders Only Rony Cox MICROFILMING DOCUMENT PREPARER-DAY SPA MANAGER [facility] Comment on above: Vitamin D deficiency (Primary Dx) Start: 07-14-2024 End: 07-14-2024 ambulatory RONY COX [facility] Start: 07-14-2024 End: 07-14-2024 Office outpatient visit 25 minutes Rony Cox MICROFILMING DOCUMENT PREPARER-DAY SPA MANAGER [facility] Comment on above: Vitamin D deficiency (Primary Dx); Bipolar affective disorder, currently depressed, mild (CMS-HCC); Chronic seasonal allergic rhinitis; Nephrolithiasis; Lumbar back pain with radiculopathy affecting left lower extremity; Migraine without aura and without status migrainosus, not intractable Start: 07-14-2024 End: 07-14-2024 ambulatory RONY COX [facility] Start: 07-12-2024 End: 07-14-2024 Refill Darrell Hernandez DO Work Phone: [facility] Comment on above: Lumbar back pain wit h radiculopathy affecting left lower extremity Start: 06-09-2024 End: 06-09-[address] [facility] Comment on above: Bipolar affective di sorder, currently depressed, mild ([facility]); Canker sores oral; Vitamin D deficiency; Chronic seasonal allergic rhinitis; Mineral metabolism disorder; Nephrolithiasis; Lumbar back pain with radiculopathy affecting left lower extremity; Migraine without aura and without status migrainosus, not intractable Start: 02-12-2024 End: 02-14-[address] [facility] Comment on above: Lumbar back pain wit h radiculopathy affecting left lower extremity Start: 01-07-2024 End: 01-07-2024 ambulatory AURELIO COREASZIO Not Available Start: 12-15-2023 End: 12-17-2023 Refill Rony Cox MICROFILMING DOCUMENT PREPARER-DAY SPA MANAGER Work Phone: [facility] Comment on above: Lumbar back pain wit h radiculopathy affecting left lower extremity Start: 11-08-2023 End: 11-08-2023 Refill Rony Cox MICROFILMING DOCUMENT PREPARER-DAY SPA MANAGER Work Phone: [facility] Comment on above: Bipolar affective di sorder, currently depressed, mild ([facility]) Start: 11-06-2023 End: 11-06-2023 ambulatory MACHO BUTLER Not Available Start: 10-14-2023 End: 10-15-2023 Refill Rony Cox MICROFILMING DOCUMENT PREPARER-DAY SPA MANAGER Work Phone: [facility] Comment on above: Lumbar back pain wit h radiculopathy affecting left lower extremity; Bipolar affective disorder, currently depressed, mild ([facility]) Start: 09-12-2023 Refill Rony J Cast illo MICROFILMING DOCUMENT PREPARER-DAY SPA MANAGER Work Phone: [facility] Comment on above: Lumbar back pain wit h radiculopathy affecting left lower extremity; Vitamin D deficiency Start: 08-14-2023 Refill Rony J Cast illo MICROFILMING DOCUMENT PREPARER-DAY SPA MANAGER Work Phone: [facility] Comment on above: Lumbar back pain wit h radiculopathy affecting left lower extremity Start: 08-06-2023 Refill Rony J Cast illo MICROFILMING DOCUMENT PREPARER-DAY SPA MANAGER Work Phone: [facility] Start: 02-21-2023 End: 02-22-2023 ambulatory RONY COX Facility:[facility] Start: 02-21-2023 End: 02-21-2023 Patient encounter procedure Li Deutsch [facility] Start: 01-24-2023 ambulatory RONYLamonte [...] REQUEST Facility:[facility] Start: 10-27-2020 End: 10-28-2020 ambulatory [facility] Start: 10-27-2020 End: 10-27-2020 Subsequent hospital visit by physician [facility] Start: 10-27-2020 End: 10-28-2020 ambulatory [facility] Start: 10-27-2020 End: 10-27-2020 [facility] Start: 06-03-2020 End: 2020 ambulatory [facility] Start: 06-03-2020 End: 06-03-2020 [facility] Start: 05-12-2020 End: 05-13-2020 ambulatory [facility] Start: 05-12-2020 End: 05-12-2020 [facility] Start: 05-11-2020 End: 05-12-2020 ambulatory [facility] Start: 05-11-2020 End: 05-11-2020 [facility] Start: 12-02-2019 End: 12-03-2019 Patient encounter procedure Gerson Sheppard Facility:[facility] Procedures Date Procedure Procedure Detail Performing Clinician Start: 09-01-2024 ECG 12-LEAD Aurelio Fazi o DO Work Phone: Start: 09-01-2024 ALL BASIC METABOLIC PANEL Aurelio Jaden DO Work Phone: Start: 06-14-2023 Adult depression scr eening assessment Rony Cox MICROFILMING DOCUMENT PREPARER[employer] Work Phone: Start: 09-19-2022 Microscopic observat ion [Identifier] in Cervix by Cyto stain Rony Cox MICROFILMING DOCUMENT PREPARER[employer] Work Phone: Start: 10-27-2020 Antibody hiv-1&hiv-2 single result Diego Hernandez MICROFILMING DOCUMENT PREPARER - DAY SPA MANAGER Work Phone: Start: 10-27-2020 Comprehensive metabo lic panel Diego Hernandez MICROFILMING DOCUMENT PREPARER - DAY SPA MANAGER Work Phone: Start: 10-27-2020 IMMATURE PLATELET FRACTION Diego Hernandez MICROFILMING DOCUMENT PREPARER - DAY SPA MANAGER Work Phone: Start: 05-12-2020 Antibody hiv-1&hiv-2 single result DIEGO HERNANDEZ Start: 05-12-2020 Blood count complete automated DIEGO HERNANDEZ Start: 05-12-2020 Iadna hepatitis c qu ant & reverse extract mixer DIEGO HERNANDEZ Start: 05-12-2020 Acute hepatitis panel [...] Treatment Date Care Activity Detail Author Start: 09-19-2025 Screening for malign ant neoplasm of cervix Pap Smear [facility] Start: 09-08-2025 Adult BMI Follow Up Plan Adult BMI Follow Up Plan [facility] Start: 09-08-2025 Adult BMI Screening Adult BMI Screen ing [facility] Start: 09-08-2025 Tobacco Screening Tobacco Screening [facility] Start: 07-14-2025 Adult BMI Follow Up Plan Adult BMI Follow Up Plan [facility] Start: 07-14-2025 Adult BMI Screening Adult BMI Screen ing [facility] Start: 07-14-2025 Tobacco Screening Tobacco Screening [facility] Start: 10-13-2024 End: 10-13-2024 Patient encounter procedure 10/13/2024 3:20 PM EDT Office Visit [facility] [address] [place] [address] Rony Cox, MICROFILMING DOCUMENT PREPARER-DAY SPA MANAGER [address] [place] [address] [facility] Start: 09-11-2024 End: 09-11-2024 Clinical Support 09/11/2024 11:00 AM EDT Clinical Support [facility] [address] [place] [address] [facility] Start: 09-08-2024 End: 09-08-2024 Patient encounter procedure 09/08/2024 2:20 PM EDT Office Visit [facility] [address] [place] [address] Rony Cox, MICROFILMING DOCUMENT PREPARER-DAY SPA MANAGER [address] [place] [address] [facility] Start: 07-14-2024 End: 07-14-2024 Patient encounter procedure 07/14/2024 1:00 PM EST Office Visit [facility] [address] [place] [address] Rony Cox, MICROFILMING DOCUMENT PREPARER-DAY SPA MANAGER [address] [place] [address] [facility] Start: 07-11-2024 Tobacco Counseling Tobacco Counselin g [facility] Start: 07-03-2024 End: 07-03-2024 Patient encounter procedure 07/03/2024 11:40 AM EST Office Visit [facility] [address] [place] [address] Rony Cox, MICROFILMING DOCUMENT PREPARER-DAY SPA MANAGER [address] [place] [address] [facility] Start: 06-14-2024 Adult BMI Follow Up Plan Adult BMI Follow Up Plan [facility] Start: 06-14-2024 Adult BMI Screening Adult BMI Screen ing [facility] Start: 06-14-2024 Depression Screening Depression Scre ening [facility] Start: 06-14-2024 Tobacco Screening Tobacco Screening [facility] Start: 03-24-2024 End: 03-24-2024 Patient encounter procedure 03/24/2024 3:20 PM EDT Office Visit [facility] [address] [place] [address] Rony Cox, MICROFILMING DOCUMENT PREPARER-DAY SPA MANAGER [address] [place] [phone] [facility] Start: 03-02-2024 Influenza vaccination Influenza Vacc ine [facility] Start: 03-02-2023 Influenza vaccination Influenza Vacc ine [facility] Start: 03-02-2021 Influenza vaccination Flu vacc ine (Season Ended) [facility]: Start: 03-02-2020 Influenza vaccination Flu vaccine (# 1) [place], [place] Start: 12-21-2019 DTaP,Tdap and Td Vaccines (2 - Td or Tdap) DTaP,Tdap and Td Vaccines (2 - Td or Tdap) [facility] Start: 2008 Screening for malign ant neoplasm of cervix Pap Smear [facility] Start: 2003 COVID-19 Vaccine (1) COVID-19 Vaccin e (1) [facility] Phone: Start: 1987 Tobacco Counseling Tobacco Counselin g [facility] End: 05-12-2020 Hepatitis C RNA, quantitative, PCR Hepatitis C RNA, quantitative, PCR Lab Routine Once for 1 Occurrences starting 05/12/2020 until 05/12/2020 [place], [place] Comment on above: Once for 1 Occurrenc es starting 05/12/2020 until 05/12/2020 Hepatitis C RNA, quantitative, PCR [place], [place] End: 10-27-2020 Hepatitis C RNA, quantitative, PCR Hepatitis C RNA, quantitative, PCR Lab Routine Once for 1 Occurrences starting 10/27/2020 until 10/27/2020 [email or web address] Phone: Comment on above: Once for 1 Occurrenc es starting 10/27/2020 until 10/27/2020 End: 07-15-2025 Vitamin D 25 hydroxy Vitamin D 25 hydroxy Lab Routine Vitamin D deficiency 1 Occurrences starting 07/14/2024 until 07/15/2025 [employer] [facility] Phone: Comment on above: 1 Occurrences starti ng 07/14/2024 until 07/15/2025 Immunizations Immunization Date Immunization Notes Care Provider Jordan elviealma 12-20-2009 tetanus toxoid, redu jarrett diphtheria toxoid, and acellular pertussis vaccine, adsorbed Li Get [facility] Payers Date Payer Category Payer Medicaid [id number] 2019 Unknown 2018 Unknown [id number] 1987 Unknown [id number] 2.16.8 40.1.170898.3.579.2.196 1987 Unknown [id number] 2.16.8 40.1.503671.3.579.2.173 1987 Unknown [id number] 2.16.8 40.1.872695.3.579.2.173 1987 Unknown [id number] 2.16.8 40.1.753564.3.579.2.173 1987 Unknown [id number] 2.16.84 0.1.823646.3.579.2.593 1987 Unknown [id number] 2.16.84 0.1.055894.3.579.2.593 1987 Unknown [id number] 2.16.84 0.1.143290.3.579.2.593 1987 Unknown [id number] 2.16.84 0.1.058472.3.579.2.593 1987 Unknown [id number] 2.16.84 0.1.467555.3.579.2.593 1987 Unknown [id number] 2.16.8 40.1.177958.3.579.2.727 1987 Unknown [id number] 2.16. 840.1.294596.3.579.2.1286 1987 Unknown [id number] 2.16.84 0.1.381517.3.579.2.1259 1987 Unknown [id number] 2.16.84 0.1.325327.3.579.2.1259 1987 Unknown [id number] 2.16.84 0.1.951625.3.579.2.1259 1987 Unknown [id number] 2.16. 840.1.633938.3.579.2.1286 1987 Unknown [id number] 2.16. 840.1.359579.3.579.2.1286 1959 Medicaid [id number] 1959 Unknown [id number] 1959 Unknown [id number] Social History Date Type Detail Facility Tobacco smoking stat [facility] Unknown if ever smoked [facility] [place], [place] Start: 1985 Sex Assigned At Not on file M [place], [place] Tobacco smoking status No Smokin g Status Entered [facility] Start: 08-12-2020 End: 06-14-2023 Sex Assigned At Female [facility] Start: 11-06-2022 End: 11-06-2023 Tobacco smoking status RIIS Smokes tobacco daily [facility] History of tobacco use Cigarette Smoker P [facility] Start: 08-12-2020 End: 11-06-2022 Cigarettes smoked current (pack per day) - Reported 0.5 [facility] Start: 11-06-2022 End: 11-06-2023 Tobacco use and exposure Smokeless tobacco non-user [facility] Start: 06-14-2023 End: 09-08-2024 Alcoholic beverage intake Ex-drinker (finding) [facility] How hard is it for y ou to pay for the very basics like food, housing, medical care, and heating Hard [facility] Adolescent depressio n screening assessment 0 [facility] Start: 02-04-2015 Sex Female (finding) [facility] Start: 01-07-2024 End: 08-19-2024 Alcoholic beverage intake Lifetime non-drinker (finding) [facility] Start: 1987 Sex assigned at Female N [facility] Start: 09-25-2023 Gender identity Identifies as female gender (finding) [facility] Clinical Notes 06-08-2022 to 09-09-2024 Telephone Encounter - Jumana Kaur CMA - 09/09/2024 10:40 AM EDTTelephone Encounter - LISA Walker - 09/09/2024 10:40 AM EDTLISA Walker - 09/08/2024 2:20 PM EDT Note Date & Type Note Facility 09-09-2024 Miscellaneous Notes [facility] called for a preop clearance , I seen she comes back . Canyou send that as soon as you get it ? fax# [phone] I have a clearance letter which needs faxed. done documented in this encounter [facility] 09-09-2024 Telephone encounter Note [facility] called for a preop clearance , I seen she comes back . Canyou send that as soon as you get it ? fax# [phone] [facility] 09-09-2024 Telephone encounter Note I have a clearance letter which needs faxed. [facility] 09-09-2024 Telephone encounter Note done [facility] 09-08-2024 History of Present illness Narrative Images from the original note were not included. [address] [place] [phone] SUBJECTIVE: Patient ID: Farideh Peoples is a 39 y.o. female. Chief Complaint Patient presents with Hypertension At preop Patient is planning on having a hysterectomy per Dr. Stanley on Sunday. At preoperative exam, was noticed blood pressure was elevated. She was informed to be checked and cleared by PCP. BP today 158/100. She is asymptomatic. Hypertension This is a new problem. The problem is uncontrolled. Pertinent negatives include no chest pain, palpitations or shortness of breath. There are no associated agents to hypertension. Risk factors for coronary artery disease include obesity and family history. Past treatments include nothing. The following portions of the patient's history were reviewed and updated as appropriate: allergies, current medications, past family history, past medical history, past social history, past surgical history and problem list. Past Surgical History: Procedure Laterality Date SECTION x 3, blood transfusion with 3 rd baby CYSTOSCOPY 2013 stone extraction,stent Past Medical History: Diagnosis Date Anxiety Back pain Dysuria GERD (gastroesophageal reflux disease) Kidney stone Urinary tract infection There is no immunization history on file for this patient. REVIEW OF SYSTEMS: Review of Systems Constitutional: Negative for chills and fever. HENT: Negative. Eyes: Negative for visual disturbance. Respiratory: Negative for chest tightness and shortness of breath. Cardiovascular: Negative for chest pain and palpitations. Gastrointestinal: Negative. Endocrine: Negative. Genitourinary: Negative for menstrual problem and pelvic pain. Musculoskeletal: Negative. Skin: Negative. Allergic/Immunologic: Negative. Neurological: Negative for syncope and facial asymmetry. Hematological: Does not bruise/bleed easily. Psychiatric/Behavioral: Negative. PHYSICAL EXAMINATION: Vitals: 09/08/24 1424 BP: (!) 150/98 BP Site: Left Arm BP Postition: Sitting Pulse: 106 Resp: 18 Temp: 37 C (98.6 F) TempSrc: Oral SpO2: 99% Weight: 99.5 kg (219 lb 6.4 oz) Height: 154.9 cm (5' 1 ) Patient noted to have elevated BMI and the following intervention(s) were applied: encouragement to exercise. Physical Exam Vitals and nursing note reviewed. Constitutional: General: She is not in acute distress. Appearance: She is well-developed. She is not diaphoretic. HENT: Head: Normocephalic and atraumatic. Right Ear: Tympanic membrane and external ear normal. Left Ear: Tympanic membrane and external ear normal. Nose: Nose normal. Mouth/Throat: Mouth: Mucous membranes are moist. Pharynx: No oropharyngeal exudate. Eyes: General: Right eye: No discharge. Left eye: No discharge. Conjunctiva/sclera: Conjunctivae normal. Pupils: Pupils are equal, round, and reactive to light. Neck: Thyroid: No thyromegaly. Vascular: No JVD. Cardiovascular: Rate and Rhythm: Normal rate and regular rhythm. Heart sounds: Normal heart sounds. No murmur heard. No friction rub. No gallop. Pulmonary: Effort: Pulmonary effort is normal. Breath sounds: Normal breath sounds. Abdominal: General: Bowel sounds are normal. There is no distension. Palpations: Abdomen is soft. There is no mass. Tenderness: There is no abdominal tenderness. Musculoskeletal: General: Normal range of motion. Cervical back: Normal range of motion and neck supple. Lymphadenopathy: Cervical: No cervical adenopathy. Skin: General: Skin is warm and dry. Capillary Refill: Capillary refill takes less than 2 seconds. Neurological: Mental Status: She is alert and oriented to person, place, and time. Deep Tendon Reflexes: Reflexes are normal and symmetric. Psychiatric: Mood and Affect: Mood normal. Behavior: Behavior normal. Thought Content: Thought content normal. Judgment: Judgment normal. ASSESSMENT/PLAN: Farideh was seen today for hypertension. Diagnoses and all orders for this visit: Benign essential HTN - lisinopriL (PRINIVIL,ZESTRIL) 20 mg tablet; Take 1 tablet (20 mg total) by mouth in the morning. Blood pressure 158/100, 150/98 Start lisinopril 20 mg oral daily Return for BP recheck in office on . ALL QUESTIONS ANSWERED Total time spent was 25 minutes: Preparing to see the patient (e.g., review of tests) Obtaining and/or reviewing separately obtained history Performing a medically appropriate examination and/or evaluation Counseling and educating the patient/family/caregiver Ordering medications, tests, or procedures Follow-up: LISA Walker 09/08/24 1441 documented in this encounter [facility] 08-19-2024 History of Present illness Narrative Reason for Appointment: Patient ID: Rick Peoples is a 39 y.o. female who presents for Pre-op Visit Patient presents today for Pre Op appointment. Patient is scheduled to undergo Diagnostic Laparoscopy, possible BREANN, possible FOE, possible BSO on 09/12/[address] Stanley at [facility]. MEDICATIONS Current Outpatient Medications Medication Instructions ARIPiprazole (Abilify) 5 MG tablet 1 tablet, Oral, Every morning cholecalciferol (Vitamin D-3) 125 MCG (5000 UT) capsule 1 capsule, Oral, Every morning escitalopram (LEXAPRO) 10 mg, Oral, Daily RT fexofenadine (SHELLY) 180 mg, Oral, Daily RT hydroCHLOROthiazide (HYDRODIURIL) 12.5 mg, Oral, Daily RT hydrOXYzine pamoate (Vistaril) 50 MG capsule take 1 capsule by mouth twice a day if needed meloxicam (Mobic) 15 MG tablet 1 tablet, Oral, Every morning methocarbamol (ROBAXIN) 750 mg, Oral, 3 times daily omega-3 (Fish Oil) 1000 MG capsule take 1 capsule by mouth twice a day as directed QUEtiapine (SEROquel) 100 MG tablet Every 24 hours SUMAtriptan (Imitrex) 50 MG tablet take 1 tablet by mouth if needed AT ONSET OF HEADACHE may repeat ... (REFER TO PRESCRIPTION NOTES). ALLERGIES Allergies Allergen Reactions Penicillins Unknown PROBLEMS Active Ambulatory Problems Diagnosis Date Noted Menorrhagia with regular cycle 01/07/2024 Resolved Ambulatory Problems Diagnosis Date Noted No Resolved Ambulatory Problems Past Medical History: Diagnosis Date Ectopic High blood pressure (CMS/HCC) HISTORY PAST MEDICAL HISTORY SOCIAL HISTORY Past Medical History: Diagnosis Date Ectopic High blood pressure (CMS/HCC) Social History Tobacco Use Smoking status: Every Day Types: Cigarettes Smokeless tobacco: Never Substance Use Topics Alcohol use: Never Drug use: Never FAMILY HISTORY Family History Problem Relation Name Age of Onset Kidney disease Father SURGICAL HISTORY Past Surgical History: Procedure Laterality Date SECTION, CLASSIC X3 TUBAL LIGATION REVIEW OF SYSTEMS Review of Systems: Review of Systems Constitutional: Negative. HENT: Negative. Eyes: Negative. Respiratory: Negative. Cardiovascular: Negative. Gastrointestinal: Negative. Genitourinary: Positive for dyspareunia, menstrual problem and pelvic pain. Musculoskeletal: Negative. Skin: Negative. Neurological: Negative. All other systems reviewed and are negative. Hematological: Negative. Endocrine: Negative. Allergic/Immunologic: Negative. OBJECTIVE Objective: Physical Exam Constitutional: Appearance: Normal appearance. She is well-developed. Cardiovascular: Rate and Rhythm: Normal rate and regular rhythm. Pulmonary: Effort: Pulmonary effort is normal. Breath sounds: Normal breath sounds. Abdominal: General: Bowel sounds are normal. There is no distension. Palpations: Abdomen is soft. Tenderness: There is no abdominal tenderness. There is no guarding or rebound. Musculoskeletal: General: No swelling. Normal range of motion. Right lower leg: No edema. Left lower leg: No edema. Neurological: Mental Status: She is alert and oriented to person, place, and time. Skin: General: Skin is warm and dry. Psychiatric: Mood and Affect: Mood normal. Behavior: Behavior normal. Vitals and nursing note reviewed. Exam conducted with a autoclave operator present. Vitals: Estimated body mass index is 41.19 kg/m as calculated from the following: Height as of 11/06/23: 5' 1 . Weight as of this encounter: 218 lb. BP: (!) 144/100 No LMP recorded. ASSESSMENT & PLAN ICD-10-CM 1. Pre-op examination Z01.818 2. Pelvic pain in female R10.2 Pre Op: Patient is doing well but has complaints of pelvic pain, menorrhagia, dysmenorrhea, and dyspareunia. I have discussed conservative management vs. surgical management with the patient in detail and patient desires surgical management at this time. Patient will undergo Diagnostic Laparoscopy, possible BREANN, possible FOE, possible BSO on 09/12/2024. Surgical consents were signed, mmc was reviewed, and patient is to proceed to [facility] OR. Follow Up: Patient is to follow up between 1-2 weeks post operative to assess proper healing and recovery from procedure. Documented by Bessie Ely LPN on behalf of: Aurelio Stanley DO documented in this encounter [facility] 07-14-2024 History of Present illness Narrative Images from the original note were not included. [address] [place] [address] SUBJECTIVE: Patient ID: Farideh Peoples is a 39 y.o. female. Chief Complaint Patient presents with discuss medication Presents for follow up Last seen in office June 2023. States she lost her insurance coverage and was not taking her medications. She now has coverage and would like her medications reordered. States overall her moods have been relatively stable without medications but she would still like to restart her mood medication. Is planning on having a hysterectomy in the near future. The following portions of the patient's history were reviewed and updated as appropriate: allergies, current medications, past family history, past medical history, past social history, past surgical history and problem list. Past Surgical History: Procedure Laterality Date SECTION x 3, blood transfusion with 3 rd baby CYSTOSCOPY 2013 stone extraction,stent Past Medical History: Diagnosis Date Anxiety Back pain Dysuria GERD (gastroesophageal reflux disease) Kidney stone Urinary tract infection There is no immunization history on file for this patient. REVIEW OF SYSTEMS: Review of Systems Constitutional: Negative for chills and fever. HENT: Negative. Eyes: Negative for visual disturbance. Respiratory: Negative for chest tightness and shortness of breath. Cardiovascular: Negative for chest pain and palpitations. Gastrointestinal: Negative. Endocrine: Negative. Genitourinary: Negative for menstrual problem and pelvic pain. Musculoskeletal: Negative. Skin: Negative. Allergic/Immunologic: Negative. Neurological: Negative for syncope and facial asymmetry. Hematological: Does not bruise/bleed easily. Psychiatric/Behavioral: Negative. PHYSICAL EXAMINATION: Vitals: 07/14/24 1303 BP: 120/80 BP Site: Left Arm BP Postition: Sitting Pulse: 100 Resp: 18 Temp: 37.2 C (99 F) TempSrc: Oral SpO2: 99% Weight: 94.9 kg (209 lb 3.2 oz) Height: 154.9 cm (5' 1 ) Patient noted to have elevated BMI and the following intervention(s) were applied: encouragement to exercise. Physical Exam Vitals and nursing note reviewed. Constitutional: General: She is not in acute distress. Appearance: She is well-developed. She is not diaphoretic. HENT: Head: Normocephalic and atraumatic. Right Ear: Tympanic membrane and external ear normal. Left Ear: Tympanic membrane and external ear normal. Nose: Nose normal. Mouth/Throat: Mouth: Mucous membranes are moist. Pharynx: No oropharyngeal exudate. Eyes: General: Right eye: No discharge. Left eye: No discharge. Conjunctiva/sclera: Conjunctivae normal. Pupils: Pupils are equal, round, and reactive to light. Neck: Thyroid: No thyromegaly. Vascular: No JVD. Cardiovascular: Rate and Rhythm: Normal rate and regular rhythm. Heart sounds: Normal heart sounds. No murmur heard. No friction rub. No gallop. Pulmonary: Effort: Pulmonary effort is normal. Breath sounds: Normal breath sounds. Abdominal: General: Bowel sounds are normal. There is no distension. Palpations: Abdomen is soft. There is no mass. Tenderness: There is no abdominal tenderness. Musculoskeletal: General: Normal range of motion. Cervical back: Normal range of motion and neck supple. Lymphadenopathy: Cervical: No cervical adenopathy. Skin: General: Skin is warm and dry. Capillary Refill: Capillary refill takes less than 2 seconds. Neurological: Mental Status: She is alert and oriented to person, place, and time. Deep Tendon Reflexes: Reflexes are normal and symmetric. Psychiatric: Mood and Affect: Mood normal. Behavior: Behavior normal. Thought Content: Thought content normal. Judgment: Judgment normal. ASSESSMENT/PLAN: Farideh was seen today for discuss medication. Diagnoses and all orders for this visit: Bipolar affective disorder, currently depressed, mild (CMS-[facility]) - ARIPiprazole (ABILIFY) 5 mg tablet; Take 1 tablet (5 mg total) by mouth in the morning. - escitalopram (LEXAPRO) 10 mg tablet; Take 1 tablet (10 mg total) by mouth in the morning. - QUEtiapine (SEROquel) 100 mg tablet; Take 1 tablet (100 mg total) by mouth nightly. Chronic seasonal allergic rhinitis - fexofenadine (SHELLY) 180 mg tablet; Take 1 tablet (180 mg total) by mouth in the morning. Nephrolithiasis - hydroCHLOROthiazide (HYDRODIURIL) 12.5 mg tablet; Take 1 tablet (12.5 mg total) by mouth daily. Lumbar back pain with radiculopathy affecting left lower extremity - meloxicam (MOBIC) 15 mg tablet; Take 1 tablet (15 mg total) by mouth in the morning. Migraine without aura and without status migrainosus, not intractable - SUMAtriptan (IMITREX) 50 mg tablet; take 1 tablet by mouth if needed AT ONSET OF HEADACHE may repeat ... (REFER TO PRESCRIPTION NOTES). Depression: Not at risk (06/14/2023) PHQ-2 PHQ-2 Score: 0 Bipolar Restart escitalopram 10 mg oral daily -aripiprazole 5 mg oral daily -quetiapine 100 mg oral nightly 2. Vitamin D deficiency Has not been taking supplement. Check D level, will adjust dose pending level 3. Migraine Reorder sumatriptan 50 mg 4. Chronic seasonal allergies Reorder Shelly Discontinue Flonase due to non use 5. Lumbar back pain Continue Meloxicam 15 mg oral daily Methocarbamol 750 mg oral TID Body mass index is 39.53 kg/m . Patient noted to have elevated BMI and the following intervention(s) were applied: Discussed current weight today. Consider healthy food choices, portion control. Avoid sugary beverages and high concentrated sweets. Routine exercise regimen encouraged. ALL QUESTIONS ANSWERED Total time spent was 30 minutes: Preparing to see the patient (e.g., review of tests) Obtaining and/or reviewing separately obtained history Performing a medically appropriate examination and/or evaluation Counseling and educating the patient/family/caregiver Ordering medications, tests, or procedures Follow-up: Annual physical Tania LISA Walker 07/14/24 1331 documented in this encounter [facility] [employer] 02-12-2024 Miscellaneous Notes ----- Message from LISA Rodriguez sent at 02/12/2024 12:24 PM EDT ----- No future ketty scheduled. Overdue for wellness, follow up LM on VM Scheduled documented in this encounter [facility] 02-12-2024 Telephone encounter Note ----- Message from LISA Rodriguez sent at 02/12/2024 12:24 PM EDT ----- No future ketty scheduled. Overdue for wellness, follow up [facility] 02-12-2024 Telephone encounter Note LM on VM [facility] 02-12-2024 Telephone encounter [facility]-08-2022 Note Indication: Right fl ank pain. 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 Urinary tract infection, site unspecified Nephrolithiasis Calculus of kidney Vitamin D deficiency- Primary Bipolar affective disorder, currently depressed, mild ([facility]) Bipolar I disorder, most recent episode (or current) depressed, mild Chronic seasonal allergic rhinitis Nephrolithiasis Calculus of kidney Lumbar back pain with radiculopathy affecting left lower extremity Migraine without aura and without status migrainosus, not intractable documented in this encounter [facility]* Diagnosis 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 Urinary tract infection, site unspecified Nephrolithiasis Calculus of kidney Vitamin D deficiency- Primary documented in this encounter [facility]* Diagnosis Bipolar affective disorder, currently depressed, mild ([facility]-HCC) Bipolar I disorder, most recent episode (or current) depressed, mild documented in this encounter [facility]* Diagnosis 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 Urinary tract infection, site unspecified Nephrolithiasis Calculus of kidney Lumbar back pain with radiculopathy affecting left lower extremity [facility] Diagnosis Lumbar back pain with radiculopathy affecting left lower extremity [facility] Diagnosis Lumbar back pain with radiculopathy affecting left lower extremity documented [facility]* Diagnosis Lumbar back pain with radiculopathy affecting left lower extremity Vitamin D deficiency documented [facility]* Diagnosis Lumbar back pain with radiculopathy affecting left lower extremity Bipolar affective disorder, currently depressed, mild ([facility]) Bipolar I disorder, most recent episode (or current) depressed, mild documented in this encounter [facility]* Diagnosis 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 Urinary tract infection, site unspecified Nephrolithiasis Calculus of kidney Bipolar affective disorder, currently depressed, mild ([facility]) Bipolar I disorder, most recent episode (or current) depressed, mild Canker sores oral Oral aphthae Vitamin D deficiency Chronic seasonal allergic rhinitis 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 Nephrolithiasis Calculus of kidney Lumbar back pain with radiculopathy affecting left lower extremity Migraine without aura and without status migrainosus, not intractable documented [facility] encounter [facility]* Diagnosis Pre-op examination Pelvic pain in female Unspecified symptom associated with female genital organs documented [facility] this [facility]* Diagnosis 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 Urinary tract infection, site unspecified Nephrolithiasis Calculus of kidney Migraine without aura and without status migrainosus, not intractable documented in this encounter [facility]* Diagnosis 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 * Bipolar disorder (Norwegian) [facility] SystemInstructionsNot on file documented in [facility] SystemInstructionsNot on file documented in this encounter[facility] SystemInstructionsNot on file documented in this encounter[facility] SystemInstructionsNot on file documented in this encounterPro[facility] SystemInstructionsNot on file documented in this encounterPro[facility] SystemInstructionsNot on file documented in this encounterPro[facility] SystemInstructionsNot on file documented in this [facility] SystemInstructions* Attachments The following attachments cannot be sent through Care Everywhere. * High blood pressure in adults (Norwegian) documented [facility] SystemInstructionsNot on file documented in this [facility]ProK[facility] SystemProgress note No data available for this section [facility] Summary Purpose Family History [...] Course Note Admission Information Tara t: Farideh Peoples : 1985 Admission date: 12/02/2019 Discharge date: 12/03/2019 CODE STATUS: Full code PCP: unknown Consult: [employer] Diagnoses: 1. Heroin addiction 2. Tobacco user [...] days. Patient is to follow-up tomorrow with [facility]'s lining caser and has further follow-up appointments to schedule her outpatient Vivitrol injection. All questions have been answered patient is being (more content not included)... Additional Source Comments INFORMATION SOURCE (unrecogn ized section and content) DATE CREATED AUTHOR 01/27/2020 [facility] DATE CREATED AUTHOR AUTHOR'S ORGANIZ ATION 11/02/2020 [facility] DATE CREATED AUTHOR AUTHOR'S ORGANIZ ATION 10/03/2022 [facility] DATE CREATED AUTHOR AUTHOR'S ORGANIZ ATION 02/22/2023 [facility] DATE CREATED AUTHOR AUTHOR'S ORGANIZ ATION 07/18/2024 [facility] DATE CREATED AUTHOR AUTHOR'S ORGANIZ ATION 08/20/2024 [facility] DATE CREATED AUTHOR AUTHOR'S ORGANIZ ATION 09/10/2024 [facility] Patient Care team informatio n (unrecognized section and content) First Assistant Manager Relationship Specialty Start Date End Date Rony Cox APRN-DAY SPA MANAGER [address] [place] [address] PCP - General Family Medicine 11/03/22 First Assistant Manager Relationship Specialty Start Date End Date Rony Cox APRN-DAY SPA MANAGER [address] [place] [address] PCP - General Family Medicine 11/03/22 First Assistant Manager Relationship Specialty Start Date End Date Rony Cox APRN-DAY SPA MANAGER [address] [place] [address] PCP - General Family Medicine 11/03/22 First Assistant Manager Relationship Specialty Start Date End Date Rony Cox APRN-DAY SPA MANAGER [address] [place] [address] PCP - General Family Medicine 11/03/22 First Assistant Manager Relationship Specialty Start Date End Date Rony Cox APRN-DAY SPA MANAGER [address] [place] [address] PCP - General Family Medicine 11/03/22 First Assistant Manager Relationship Specialty Start Date End Date [facility]ony [facility] [address] [place] [address] PCP - [facility] 11/03/22 First Assistant Manager Relationship Specialty Start Date End Date Rony Cox [facility] [address] [place] [address] PCP - [facility] 11/03/22 First Assistant Manager Relationship Specialty Start Date End Date Rony Cox [facility] [address] [place] [address] PCP - [facility] 11/03/22 First Assistant Manager Relationship Specialty Start Date End Date Rony Cox MICROFILMING DOCUMENT PREPARERPAM [facility] [address] [place] [address] PCP - [facility] 11/03/22 First Assistant Manager Relationship Specialty Start Date End Date Rony Cox [facility] [address] [place] [address] PCP - General Family Medicine 11/03/22 Reason for Visit (unrecogniz ed section and content) Reason Comments Med Refill Reason Comments discuss medication Reason Onset Date Comments Med Refill 02/12/2024 Reason Onset Date Comments Med Refill 06/09/2024 Reason Comments Pre-op Visit Reason Comments Hypertension At preop FOR RECORDS PERTAINING TO PATIENTS WHO ARE [...] BE BASED ON THE PRIMARY CLINICAL RECORDS. [facility]. provides no warranty or guarantee of the accuracy or completeness of information in this document.
[2024-09-12 09:48] LABS: HCG Quantitative <1 mIU/mL
--- NOTE | 2024-09-12 09:52 | PC.NURSE ---
Dr. Stanley updated on elevated white count of 14.9. He is aware
[2024-09-12] MEDS: LACTATED RINGER'S SOLUTION 1,000 ML 50 ML IV ×2 (09:53→13:22)
--- NOTE | 2024-09-12 10:08 | PC.NURSE ---
1000- Dr Stanley aware of CBC result. No new orders received.
--- NOTE | 2024-09-12 13:30 | P.ON_ITS ---
Brief Operative Note Date of procedure: 09/12/24 Pre-op diagnosis general: pelvic pain Post-op diagnosis: other (endometriosis posterior culdesac) Procedure: NAME OF PROCEDURE: [diagnostic laparoscopy ] findings posterior culdesac endometrial implants, obliterated anterior culdesac PROCEDURE: The patient was taken back to the Operating Room where she was placed in dorsal lithotomy position after given general anesthesia. The patient was prepped and draped in normal sterile fashion. A sponge stick was placed into the patient's vagina. Attention was turned to the patient's abdomen, where a small umbilical incision was made. The fascia was tented using Zahraa clamps and the fascia was entered sharply. Confirmation of intraabdominal placement of the 10 mm port was confirmed under direct visualization using a laparoscope. The patient's abdomen was then insufflated using CO2 gas with approximately 4 liters. A second port was placed left laterally, this was done under direct visualization with a 5 mm port. Survey of the patient's abdomen demonstrated normal liver and gallbladder. Survey of the patient's pelvic anatomy demonstrated normal appearing rt and lt ovary and tubes as well as normal appearing uterus. posterior culde sac endometrial implants could be noted, obliterated anterior culdesac, normal appearing pelvic cavity. All instruments were removed from the patient's abdomen. The patient's abdomen was deinsufflated of CO2 gas. The patient tolerated the procedure well. Sponge stick was removed from the patient's vagina. The patient's infraumbilical fascia was closed using #0 Vicryl on a GI needle. The patient's skin was closed laterally and infraumbilically using 4-0 Vicryl. The patient tolerated the procedure well. Sponge, lap and needle counts were correct x 2. The patient was taken to Recovery Room in stable condition. Anesthesia: NORMA Surgeon: Aurelio Stanley Electrical Prospector: Herlinda Kaiser Estimated blood loss (mL): 5 Pathology: none sent Condition: stable Disposition: PACU Urinary Catheter Management Urinary Catheter Management Urethral: Cath placed during this visit: no
[2024-09-12] MEDS: HYDROCODONE/ACET 5-325 MG TABLET 1 TAB PO (14:01)
--- NOTE | 2024-09-12 14:51 | PC.NURSE ---
Denies urge to void; peripad dry
--- NOTE | 2024-09-12 15:27 | PC.NURSE ---
Up to bathroom and voided blood tinged urine without difficulty.
== END 2024-09-12 15:35 | disposition home or self-care (01) ==
PROVIDERS: PCP Nurse Practitioner; Visit Provider Obstetrics & Gynecology
PROC: (CPT 840; principal; 2024-09-12 10:50)
DX: R10.2 Pelvic and perineal pain (principal); N80.329 Endometriosis of the posterior cul-de-sac, unspecified depth; E66.01 Morbid (severe) obesity due to excess calories; Z68.41 Body mass index [BMI] 40.0-44.9, adult; F17.210 Nicotine dependence, cigarettes, uncomplicated; I10 Essential (primary) hypertension; K21.9 Gastro-esophageal reflux disease without esophagitis; Z87.442 Personal history of urinary calculi
CPT/HCPCS: 49320; 36415; 84702; 85025; J1100; J1885; J2250; J2405; J2704; J3010

== ENCOUNTER 2024-12-08 20:58 | Outpatient (REF) | payer MEDICAID, SELFPAY ==
--- OUTSIDE RECORDS SUMMARY | 2024-11-12 12:00 | XMS_ITS ---
Author Organization [facility] Address [address] [place] [address] Care Team Providers Care Call Center Coordinator Name Role Phone Dr. Manny Singh Primary Care Provider [phone] Earlene Vasquez [phone] REASON FOR VISIT PROPHY LAST HYG 2022 Encounters Encounter Location Date Provider Diagnosis [facility] [address] [place] [address] 11/12/2024 Earlene Trevino Plan Of Treatment Next Appt Details Provider Name:Manny Singh, 0 01/27/2025 03:45:00 PM, [address] [place], [address], Provider Name:Marisela Holt, 02/03/2025 02:00:00 PM, [address], [place], [address], Provider Name:Earlene Trevino , 06/15/2025 08:00:00 AM, [address], [place], [address], Progress Notes * SHERI HSUB:1984 (39 yo F)Acc No.[id number]:11/12/2024 Patient: TORY CASSIDY Provider: Lui Trevino :1985 A ge:39 Y S ex:Female Date:11/12/2024 Address:[address], [place] Pcp:Dr. Manny Singh Subjective: * Chief Complaints: * 1 . PROPHY LAST HYG 2022. * Medical History: Objective: * Vitals: Assessment: Plan: * Treatment: * Images: * Electronic signature of Lc Trevino on 12/08/2024 at 01:19 PM EDT Sign off status: Pending * Provider: Lui Trevino Date: 0 11/12/2024 Generated for Zhen lazcano/Brianne/Jose Martin on: 0 12/08/2024 01:19 PM EDT
--- OUTSIDE RECORDS SUMMARY | 2024-12-08 13:20 | XMS_ITS | Encounter Summary ---
Author Organization [facility] Address [address] [place] [address] Care Team Providers Care Crusher Loader Equipment Operator Name Role Phone Unavailable Primary Care Provider Unavailabl e Reason for Visit * Reason Comments Well Women Visit Encounter Details Date Type Department Care Team (Late st Contact Info) Description 12/08/2024 1:20 PM EDT Office Visit [facility] [address] [place] [place] [address] Aurelio Stanley, DO [address] [facility] [address] [place], [facility] [address] Well woman exam with routine gynecological exam; Pelvic pain in female; Menorrhagia with regular cycle Social History Tobacco Use Types Packs/Day Years Used Date Smoking Tobacco: Every Day Cigarettes Smokeless Tobacco: Never Alcohol Use Standard Drinks/Week Comments Never 0 (1 standard drink = 0.6 oz pur e alcohol) Comments No Sex and Gender Information Value Date Recorded Sex Assigned at Female 09/25/2023 7:14 PM EDT Legal Sex Female 11:47 PM EDT Gender Identity Female 09/25/2023 7:14 PM EDT Sexual Orientation Not on file documented as of this encounter Last Filed Vital Signs Vital Sign Reading Time Taken Comments Blood Pressure 126/80 12/08/2024 1:45 PM EDT Pulse - - Temperature - - Respiratory Rate - - Oxygen Saturation - - Inhaled Oxygen Concentration - - Weight 104 kg (229 lb 12.8 oz) 12/08/2024 1:45 P M EDT Height - - Body Mass Index 43.42 11/06/2023 3:26 PM EDT documented in this encounter Progress Notes * Yoon Baker LPN - 12/08/2024 1:20 PM EDT Reason for Appointment: Patient ID: Rick Peoples is a 39 y.o. female who presents for Well Women Visit Patient presents today for Annual Exam. MEDICATIONS Current Outpatient Medications Medication Instructions ARIPiprazole (Abilify) 5 MG tablet 1 tablet, Every morning cholecalciferol (Vitamin D-3) 125 MCG (5000 UT) capsule 1 capsule, Every morning escitalopram (LEXAPRO) 10 mg, Daily RT fexofenadine (PETER) 180 mg, Daily RT hydroCHLOROthiazide (HYDRODIURIL) 12.5 mg, Daily RT hydrOXYzine pamoate (Vistaril) 50 MG capsule take 1 capsule by mouth twice a day if needed meloxicam (Mobic) 15 MG tablet 1 tablet, Every morning methocarbamol (ROBAXIN) 750 mg, 3 times daily omega-3 (Fish Oil) 1000 MG capsule take 1 capsule by mouth twice a day as directed QUEtiapine (SEROquel) 100 MG tablet Every 24 hours SUMAtriptan (Imitrex) 50 MG tablet take 1 tablet by mouth if needed AT ONSET OF HEADACHE may repeat... (REFER TO PRESCRIPTION NOTES). traZODone (DESYREL) 100 mg, Nightly ALLERGIES Allergies Allergen Reactions Penicillins Unknown PROBLEMS Active Ambulatory Problems Diagnosis Date Noted Menorrhagia with regular cycle 01/07/2024 Endometriosis 09/22/2024 Resolved Ambulatory Problems Diagnosis Date Noted No Resolved Ambulatory Problems Past Medical History: Diagnosis Date Ectopic High blood pressure (CMS/HCC) Kidney stones HISTORY PAST MEDICAL HISTORY SOCIAL HISTORY Past Medical History: Diagnosis Date Ectopic High blood pressure (CMS/HCC) Kidney stones Social History Tobacco Use Smoking status: Every [...] Cardiovascular: Negative. Gastrointestinal: Negative. Genitourinary: Positive for menstrual problem and vaginal bleeding. Musculoskeletal: Negative. Skin: Negative. Neurological: Negative. All other systems reviewed and are negative. Hematological: Negative. Endocrine: Negative. Allergic/Immunologic: Negative. OBJECTIVE Objective: Physical Exam Constitutional: Appearance: Normal appearance. She is well-developed. Genitourinary: Vulva normal. Breasts: Breasts are soft. Right: Normal. Left: Normal. Cardiovascular: Rate and Rhythm: Normal rate and [...] nursing note reviewed. Exam conducted with a patient coordinator present. Vitals: Estimated body mass index is 43.42 kg/m?? as calculated from the following: Height as of 11/06/23: 5' 1 . Weight as of this encounter: 229 lb 12.8 oz. BP: 126/80 Patient's last menstrual period was 11/19/2024. ASSESSMENT & PLAN ICD-10-CM 1. Well woman exam with routine gynecological exam Z01.419 Pap Smear HPV DNA probe, amplified 2. Pelvic pain in female R10.2 3. Menorrhagia with regular cycle N92.0 Annual Exam: Patient presents today for an annual exam. Patient states she is doing well and has complaints of irregular/heavy cycles even after Ablation. Pap was obtained without difficulty. Patient advised to reach out to nursing scheduler if she decides to proceed to OR for management with partial hysterectomy & patient will be able to be given a surgery date and setup for pre-op appointment. Orders Placed This Encounter Procedures HPV DNA probe, amplified Follow Up: Patient is to return in one year for annual unless needed otherwise. Documented by Yoon Baker LPN on behalf of: Aurelio Stanley DO documented in this encounter Plan of Treatment Upcoming Encounters Date Type Department Care Team (Late st Contact Info) Description 12/14/2025 2:00 PM EDT Office Visit [facility] [address] [place] [place] [address] Aurelio Stanley, DO [address] [place] [address] Scheduled Orders Name Type Priority Associated Diagnoses Orde r Schedule Pap Smear Pathology and Cytology Routine Well woman exam with routine gynecological exam Ordered: 12/08/2024 HPV DNA probe, amplified Microbiology Routine Well woman exam with routine gynecological exam Ordered: 12/08/2024 documented as of this encounter Visit Diagnoses Diagnosis Well woman exam with routine gynecological exam Routine gynecological examination Pelvic pain in female Unspecified symptom associated with female genital organs Menorrhagia with regular cycle documented in this encounter
--- OUTSIDE RECORDS SUMMARY | 2024-12-08 21:01 | XMS_ITS | Clinical Summary ---
Author Organization [facility] Healthcare Address [address] [place] [address] Care Team Providers Care Envelope Adjuster Name Role Phone Unavailable Primary Care Provider Unavailabl e Allergies Active Allergy Reactions Criticality Noted Date Comments Penicillins Unknown 09/05/2016 Medications ARIPiprazole (Abilify) 5 MG tablet Take 1 tablet by mouth in the morning. 4 Active cholecalciferol (Vitamin D-3) 125 MCG (5000 UT) capsule Take 1 capsule by mouth in the morning. 4 Active escitalopram (Lexapro) 10 MG tablet Take 10 mg by mouth in the morning. 3 Active fexofenadine (Shelly) 180 MG tablet Take 180 mg by mouth in the morning. 3 Active hydroCHLOROthia zide (HYDRODiuril) 12.5 MG tablet Take 12.5 mg by mouth in the morning. 3 Active hydrOXYzine pamoate (Vistaril) 50 MG capsule take 1 capsule by mouth twice a day if needed 4 Active meloxicam (Mobic) 15 MG tablet Take 1 tablet by mouth in the morning. 4 Active methocarbamol (Robaxin) 750 MG tablet Take 750 mg by mouth in the morning and 750 mg at noon and 750 mg in the evening. 4 Active omega-3 (Fish Oil) 1000 MG capsule take 1 capsule by mouth twice a day as directed 3 Active SUMAtriptan (Imitrex) 50 MG tablet take 1 tablet by mouth if needed AT ONSET OF HEADACHE may repeat ... (REFER TO PRESCRIPTION NOTES). 3 Active QUEtiapine (SEROquel) 100 MG tablet 1 (one) time each day at the same time Active traZODone (Desyrel) 100 MG tablet Take 100 mg by mouth at bedtime Active Active Problems Problem Noted Date Diagnosed Date Endometriosis 09/22/2024 Menorrhagia with regular cycle 01/07/2024 Encounters Date Type Department Care Team Description 12/08/2024 1:20 PM EDT Office Visit [facility] [address] [place] [phone] Aurelio Stanley DO Well woman exam with routine gynecological exam; Pelvic pain in female; Menorrhagia with regular cycle 12/08/2024 Bamboo flowsheet [facility] OB [address] [place] [address] [place] [phone] Aurelio Stanley DO 09/22/2024 2:20 PM EDT Office Visit [facility] OB [address] [place] [address] [place] [phone] Aurelio Stanley DO Postoperative follow-up; Endometriosis 09/22/2024 Bamboo flowsheet [facility] OB [address] [place] [address] [place] [address] Aurelio Stanley DO 09/12/2024 Abstract [facility] OB [address] [place] [address] [place] [phone] Aurelio Stanley DO 09/12/2024 Clinisync Result Encounter [facility] External Department Unsolicited Aurelio Stanley DO from Last 3 Months Family History Medical History Relation Name Comments Kidney disease Father Relation Name Status Comments Father Alive Mother Alive Social History Tobacco Use Types Packs/Day Years Used Date Smoking Tobacco: Every Day Cigarettes Smokeless Tobacco: Never Tobacco Cessation:Ready to Q uit: Not Asked; Counseling Given: Not Answered Alcohol Use Standard Drinks/Week Comments Never 0 (1 standard drink = 0.6 oz pur e alcohol) Comments No Sex and Gender Information Value Date Recorded Sex Assigned at Female 09/25/2023 7:14 PM EDT Legal Sex Female 11:47 PM EDT Gender Identity Female 09/25/2023 7:14 PM EDT Sexual Orientation Not on file Last Filed Vital Signs Vital Sign Reading Time Taken Comments Blood Pressure 126/80 12/08/2024 1:45 PM EDT Pulse - - Temperature - - Respiratory Rate - - Oxygen Saturation - - Inhaled Oxygen Concentration - - Weight 104 kg (229 lb 12.8 oz) 12/08/2024 1:45 P M EDT Height 154.9 cm (5' 1 ) 11/06/2023 3:26 PM EDT Body Mass Index 43.42 11/06/2023 3:26 PM EDT Plan of Treatment Upcoming Encounters Date Type Department Care Team (Late st Contact Info) Description 12/14/2025 2:00 PM EDT Office Visit [facility] [address] [facility] [place] [address] Aurelio Stanley DO [address] [place], [place] [address] [address] Procedures Procedure Name Priority Date/Time Associated Diagnosis Comments [facility] PREG QUANT HCG Routine 09/12/2024 9: 15 AM EDT ALL CBC WITH AUTO DIFF Routine 09/12/2024 9:15 AM EDT from Last 3 Months Results * [facility] PREG QUANT HCG (09/12/2024 9:15 AM EDT) HCG QUANTITATIVE <1 mIU/mL [facility] Comment: 5-50 0.2-1 WEEK 50-500 1-2 WEEKS 100-5,000 2-3 WEEKS 500-10,000 3-4 WEEKS 1,000-50,000 4-5 WEEKS 10,000-100,000 5-6 WEEKS 15,000-200,000 6-8 WEEKS 10,000-100,000 2-3 MONTHS 09/12/2024 9:15 AM EDT 09/12/2024 9:16 AM EDT Narrative [facility] - 09/12/2024 9:48 AM EDT us Aurelio Stanley DO [facility] Final Result [facility] TB * (ABNORMAL) ALL CBC WITH AUTO DIFF (09/12/2024 9:15 AM EDT) [facility] Signature TB WBC 14.9(H) 4.0 - 11.0 10 3/uL TBH TBH RBC 4.98 4.20 - 5.40 10 6/uL TBH TBH HGB 14.6 12.0 - 16.0 g/dL TBH TBH HCT 43.7 36.0 - 48.0 % TBH TBH MCV 87.8 81.0 - 99.0 fL TBH TBH MCH 29.3 26.7 - 34.0 pg TBH TBH MCHC 33.4 29.9 - 35.2 g/dL TBH TBH RDW 15.1(H) 11.0 - 15.0 % TBH TBH PLT 255 150 - 450 10 3/uL TBH TBH MPV 11.6 9.5 - 13.5 fL TBH NEUTROPHILS PERCENT AUTO 71.0 43.0 - 75.0 % TBH LYMPHOCYTES PERCENT AUTO 20.9 20.5 - 60.0 % TBH MONOCYTES PERCENT AUTO 4.9 1.7 - 12.0 % TBH TBH EO % 2.1 0.9 - 7.0 % TBH BASOPHILS PERCENT AUTO 0.5 0.2 - 2.0 % [facility] IMMATURE GRANULOCYTES PCT AUTO 0.6(H) 0.0 - 0.5 % TBH NEUTROPHILS ABSOLUTE AUTO 10.6(H) 1.4 - 6.5 10 3/uL TBH LYMPHOCYTES ABSOLUTE AUTO 3.1 1.2 - 3.8 10 3/uL TBH MONOCYTES ABSOLUTE AUTO 0.7 0.3 - 0.8 10 3/uL TBH TBH EO # 0.3 0.0 - 0.7 10 3/uL TBH BASOPHILS ABSOLUTE AUTO 0.1 0.0 - 0.1 10 3/uL [facility]H IMMATURE GRANULOCYTES ABS AUTO 0.09(H) 0.00 - 0.03 10 3/uL TBH 09/12/2024 9:15 AM EDT 09/12/2024 9:16 AM EDT Narrative [facility] - 09/12/2024 9:22 AM EDT us Aurelio Jaden DO [facility] Final Result [facility] from Last 3 Months Insurance [employer] MEDICA[place]
--- OUTSIDE RECORDS SUMMARY | 2024-12-08 21:01 | XMS_ITS | Encounter Summary ---
[facility] Organization [id number] [address] [place] [address] Care Team Providers Care Leasing Manager Name Role Phone Yvonne Cox STATIONARY ENGINEER REFRIGERATION-LEGAL CASHIER Primary Care Provid er Reason for Visit * Reason Comments Med Refill Encounter Details Date Type Department Care Team (Late st Contact Info) Description 11/28/2024 Refill [facility] Internal Medicine - Family Medicine [address] [place] [address] Yvonne Cox, STATIONARY ENGINEER REFRIGERATION-LEGAL CASHIER [address] [place] [address] Bipolar affective disorder, currently depressed, mild (CMS-HCC) Social History Tobacco Use Types Packs/Day Years Used Date Smoking Tobacco: Every Day Cigarettes 0.5 20 Smokeless Tobacco: Never Alcohol Use Standard Drinks/Week Comments Not Currently 0 (1 standard drink = 0.6 oz pur e alcohol) Overall Financial Resource Strain (CARDIA) Answe r Date Recorded How hard is it for you to pa y for the very basics like food, housing, medical care, and heating? Hard 05/26/2023 PHQ-2 Answer Date Recorded Total Score 0 06/14/2023 PRAPARE - Transportation Answer Date Re corded In the past 12 months, has l ack of transportation kept you from medical appointments or from getting medications? No 05/03 In the past 12 months, has l ack of transportation kept you from meetings, work, or from getting things needed for daily living? No 05/26/2023 Housing Instability Answer Date Recorde d Are you worried or concerned that in the next two months you may not have stable housing that you own, rent or stay in as a part of a household? Yes 05/26/2023 Childcare Answer Date Recorded Childcare Unknown 12/11/2018 Employment Answer Date Recorded Employment Unknown 12/11/2018 Hunger Screening Answer Date Recorded Within the past 12 months we worried whether our food would run out before we got money to buy more. Never True 10/13/2024 Within the past 12 months th e food we bought just didn't last and we didn't have money to get more. Never True 10/13/2024 Purpose - Life Answer Date Recorded Purpose and direction in life Unknown Comments No Sex and Gender Information Value Date Recorded Sex Assigned at Not on file Legal Sex Female 11:36 AM EDT Gender Identity Not on file Sexual Orientation Not on file documented as of this encounter Plan of Treatment Upcoming Encounters Date Type Department Care Team (Late st Contact Info) Description 04/14/2025 3:20 PM EDT Office Visit [facility] - Family Medicine [address] [place] [address] Yvonne Cox APRN-LEGAL CASHIER [address] [place] [address] documented as of this encounter Visit Diagnoses Diagnosis Bipolar affective disorder, currently depressed, mild ([facility]) Bipolar I disorder, most recent episode (or current) depressed, mild documented in this encounter Additional Health Concerns Assessment Noted Time PHQ-9 Depression Total Score: 0 06/14/20 2:03 PM EST A Body Mass Index follow-up plan has been documented for the patient 10/13/2024 3:58 PM EDT documented as of this encounter Care Teams Leasing Manager Relationship Specialty Start Date End Date Yvonne Cox APRN-LEGAL CASHIER [address] [place] [address] PCP - General Family Medicine 11/03/22 documented as of this encounter
--- OUTSIDE RECORDS SUMMARY | 2024-12-08 21:01 | XMS_ITS | Encounter Summary ---
Author Organization [employer] [facility] tem Address [id number] [address] [place] [address] Care Team Providers Care Intel Recruiter Name Role Phone Yvonne Cox DRIVING INSTRUCTOR-BRANCH CREDIT COUNSELOR Primary Care Provid er Encounter Details Date Type Department Care Team (Late Contact Info) Description 05/09/2023 Orders Only [facility] - Family Medicine [address] [place] [address] External, Scanning Provider Social History Tobacco Use Types Packs/Day Years Used Date Smoking Tobacco: Every Day Cigarettes 0.5 20 Smokeless Tobacco: Never Alcohol Use Standard Drinks/Week Comments Not Currently 0 (1 standard drink = 0.6 oz pur e alcohol) PHQ-2 Answer Date Recorded Total Score 0 01/08/2023 Childcare Answer Date Recorded Childcare Unknown 12/11/2018 Employment Answer Date Recorded Employment Unknown 12/11/2018 Purpose - Life Answer Date Recorded Purpose and direction in life Unknown Comments No Sex and Gender Information Value Date Recorded Sex Assigned at Not on file Legal Sex Female 11:36 AM EDT Gender Identity Not on file Sexual Orientation Not on file documented as of this encounter Plan of Treatment Upcoming Encounters Date Type Department Care Team (Late Contact Info) Description 04/14/2025 3:20 PM EDT Office Visit [facility] - Family Medicine [address] [place] [phone] Yvonne Cox, DRIVING INSTRUCTOR-BRANCH CREDIT COUNSELOR [address] [place] [address] documented as of this encounter Visit Diagnoses Not on filedocumented in this encounter Additional Health Concerns Assessment Noted Time PHQ-9 Depression Total Score: 0 01/09/20 2:46 PM EDT A Body Mass Index follow-up plan has been documented for the patient 01/22/2023 6:26 AM EDT documented as of this encounter Care Teams Intel Recruiter Relationship Specialty Start Date End Date Yvonne Cox, DRIVING INSTRUCTOR-BRANCH CREDIT COUNSELOR [address] [place] [address] PCP - General Family Medicine 11/03/22 documented as of this encounter
--- OUTSIDE RECORDS SUMMARY | 2024-12-08 21:01 | XMS_ITS | Encounter Summary ---
Author Organization [facility] Address [address] [place] [address] Care Team Providers Care Complex Human Resources Manager Name Role Phone Unavailable Primary Care Provider Unavailabl e Encounter Details Date Type Department Care Team (Late st Contact Info) Description 11/27/2023 Clinisync Result Encounter [facility] External Department Unsolicited Celeste Butler PA [address] [place], [place] [id number] Social History Tobacco Use Types Packs/Day Years [...] EDT Office Visit [facility] [address] [place] [address] Aurelio Stanley, [address] [place] [address] documented as of this encounter Procedures Procedure Name Priority Date/Time Associated Diagnosis Comments US PELVIS W/ TRANSVAGINAL 11/27/2023 7:45 AM EDT documented in this encounter Results * US PELVIS W/ TRANSVAGINAL (11/27/2023 7:45 AM EDT) Anatomical Region Laterality Modality Other 11/27/2023 7:45 AM EDT Narrative 11/27/2023 7:48 [place] [address] Ultrasound Report Signed Patient: TORY PEOPLES MR#: [id number] : 1985 Acct:[id number] Age/Sex: 38 / F ADM Date: 11/23/23 Loc: US Attending Dr: Celeste Butler Ordering Physician: Celeste Butler Date of Service: 11/23/23 Procedure(s): US pelvis w/ transvaginal Accession Number(s): [id number] cc: Celeste Butler; RONY SHARMA [place] [id number] Patient Name: TORY PEOPLES MRN: [id number] date: 1985 Sex: F Assigned Patient Location: US Current Patient Location: Accession/Order Number: [id number] Exam Date: 11/23/2023 17:30 Report Date: 11/27/2023 07:45 At the request of: CELESTE BUTLER Procedure: US pelvis w/ transvaginal EXAMINATION: US pelvis w/ transvaginal HISTORY: Menorrhagia/pelvic pain COMPARISON: No relevant comparison available. TECHNIQUE: Transabdominal and/or transvaginal sonographic examination was performed as indicated by examination type. FINDINGS: UTERUS: Normal size and appearance. Incidental nabothian cysts within cervix. Uterus size: 9.2 x 4.5 x 4.4 cm ENDOMETRIUM: Normal homogeneous appearance. Endometrial thickness: 7 mm RIGHT OVARY: Contains a 2.3 cm benign-appearing cyst. Duplex Doppler demonstrates normal waveform and flow; resistive index 0.5. Ovary size: 4.0 x 2.2 x 3.1 cm LEFT OVARY: Normal size and appearance. Duplex Doppler demonstrates normal waveform and flow; resistive index 0.6. Ovary size: 2.8 x 1.6 x 2.6 cm CUL-DE-SAC: Unremarkable. No significant free fluid. BLADDER: Unremarkable. OTHER: None. US/US pelvis w/ transvaginal IMPRESSION: 1. Right ovary contains a 2.3 cm benign-appearing cysts which may contribute to patient's symptoms. Otherwise unremarkable pelvis. Electronically authenticated by: VIRY BEY Date: 11/27/2023 07:45 Dictated By: Viry Bey M.D. Signed By: 11/27/23 0748 DD/ TD/TT: Continuity Manager: Procedure Note Radiology, Radiologist, MD - 11/27/2023 [place] [address] Ultrasound Report Signed Patient: TORY PEOPLES R#: [id number] : 1985Acct:[id number] Age/Sex: 38 / FADM Date: 11/23/23 Loc: US Attending Dr: Celeste Butler Ordering Physician: Celeste Butler Date of Service: 11/23/23 Procedure(s): US pelvis w/ transvaginal Accession Number(s): [id number] cc: Celeste Butler; RONY SHARMA [place] [address] Patient Name: TORY PEOPLES MRN: [id number] date: 1985 Sex: F Assigned Patient Location: Current Patient Location: Accession/Order Number: [id number] Exam Date: 11/23/2023 17:30 Report Date: 11/27/2023 07:45 At the request of: CELESTE BUTLER Procedure: US pelvis w/ transvaginal EXAMINATION: US pelvis w/ transvaginal HISTORY: Menorrhagia/pelvic pain COMPARISON: No relevant comparison available. TECHNIQUE: Transabdominal and/or transvaginal sonographic examination was performed as indicated by examination type. FINDINGS: UTERUS: Normal size and appearance. Incidental nabothian cysts withincervix. Uterus size: 9.2 x 4.5 x 4.4 cm ENDOMETRIUM: Normal homogeneous appearance. Endometrial thickness: 7 mm RIGHT OVARY: Contains a 2.3 cm benign-appearing cyst. Duplex Doppler demonstrates normal waveform and flow; resistive index 0.5. Ovary size:4.0 x 2.2 x 3.1 cm LEFT OVARY: Normal size and appearance. Duplex Doppler demonstrates normal waveform and flow; resistive index 0.6. Ovary size: 2.8 x 1.6 x 2.6 cm CUL-DE-SAC: Unremarkable. No significant free fluid. BLADDER: Unremarkable. OTHER: None. US/US pelvis w/ transvaginal IMPRESSION: 1. Right ovary contains a 2.3 cm benign-appearing cysts which maycontribute to patient's symptoms. Otherwise unremarkable pelvis. Electronically authenticated by: VIRY BEY Date: 11/27/2023 07:45 Dictated By: Viry Bey M.D. Signed By:11/27/23 0748 DD/ TD/TT: Continuity Manager: us Celeste MARTINEZ [facility] Final Result documented in this encounter Visit Diagnoses Not on filedocumented in this encounter
--- OUTSIDE RECORDS SUMMARY | 2024-12-08 21:01 | XMS_ITS | Encounter Summary ---
Author Organization [email or web address] [facility] Address [id number] [address] [place] [address] Care Team Providers Care Story Teller Name Role Phone Yvonne Cox DIKE SUPERVISOR-ROAD CUTTER Primary Care Provid er Encounter Details Date Type Department Care Team (Latest Contact Info) Description 11/25/2024 Travel Social History Tobacco Use Types Packs/Day Years [...] Medicine - Family Medicine [address] [place] [address] Yvonne Cox, DIKE SUPERVISOR-ROAD CUTTER [address] [place] [address] documented as of this encounter Visit Diagnoses Not on filedocumented in this encounter Additional Health Concerns Assessment Noted Time PHQ-9 Depression Total Score: 0 06/14/20 23 2:03 PM EST A Body Mass Index follow-up plan has been documented for the patient 10/13/2024 3:58 PM EDT documented as of this encounter Care Teams Story Teller Relationship Specialty Start Date End Date Yvonne Cox APRN-ROAD CUTTER [address] [place] [address] PCP - General Family Medicine 11/03/22 documented as of this encounter
--- OUTSIDE RECORDS SUMMARY | 2024-12-08 21:01 | XMS_ITS | Clinical Summary ---
Author Organization [employer] tem Address [id number] [address] [place] [address] Care Team Providers Care Dance Hall Host/Hostess Name Role Phone Yvonne Cox OFFICE 365 CONSULTANT-JEWELRY DRILL OPERATOR Primary Care Provid er Allergies Active Allergy Reactions Criticality Noted Date Comments Penicillins 09/05/2016 Medications ARIPiprazole (ABILIFY) 5 mg tabletIndication s:Bipolar affective disorder, currently depressed, mild (CMS-HCC) Take 1 tablet (5 mg total) by mouth in the morning. 30 tablet 025 Active escitalopram (LEXAPRO) 10 mg tabletIndication s:Bipolar affective disorder, currently depressed, mild (CMS-HCC) Take 1 tablet (10 mg total) by mouth in the morning. 30 tablet 025 Active fexofenadine (PETER) 180 mg tabletIndication s:Chronic seasonal allergic rhinitis Take 1 tablet (180 mg total) by mouth in the morning. 30 tablet 025 Active hydroCHLOROthiaz meagan (HYDRODIURIL) 12.5 mg tabletIndication s:Nephrolithiasi s Take 1 tablet (12.5 mg total) by mouth daily. 30 tablet 025 Active meloxicam (MOBIC) 15 mg tabletIndication s:Lumbar back pain with radiculopathy affecting left lower extremity Take 1 tablet (15 mg total) by mouth in the morning. 30 tablet 025 Active cholecalciferol, vitamin D3, (D3-2000) 2,000 units capsuleIndicatio ns:Vitamin D deficiency Take 1 capsule (2,000 Units total) by mouth in the morning. 30 each 11 025 Active lisinopriL (PRINIVIL,ZESTRI L) 20 mg tabletIndication s:Benign essential HTN Take 1 tablet (20 mg total) by mouth in the morning. 30 tablet 6 025 Active methocarbamoL (ROBAXIN) 750 mg tabletIndication s:Lumbar back pain with radiculopathy affecting left lower extremity TAKE 1 TABLET BY MOUTH THREE TIMES A DAY 90 tablet 2 025 Active traZODone (DESYREL) 100 mg tabletIndication s:Insomnia, unspecified type Take 1 tablet (100 mg total) by mouth nightly. 30 tablet 3 025 Active SUMAtriptan (IMITREX) 50 mg tabletIndication s:Migraine without aura and without status migrainosus, not intractable TAKE 1 TABLET BY MOUTH IF NEEDED AT ONSET OF HEADACHE MAY REPEAT ... (REFER TO PRESCRIPTION NOTES). 9 tablet 2 025 Active QUEtiapine (SEROquel) 100 mg tabletIndication s:Bipolar affective disorder, currently depressed, mild (CMS-HCC) TAKE 1 TABLET BY MOUTH EVERY DAY AT NIGHT 30 tablet 5 025 Active QUEtiapine (SEROquel) 100 mg tabletIndication s:Bipolar affective disorder, currently depressed, mild (CMS-HCC) Take 1 tablet (100 mg total) by mouth nightly. 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 the most recent KUB with bilateral small calculi. Family history stones. Plan: Mineral metabolism workup Nephrolithiasis 08/31/2016 Overview (03/13/2019): +++++++++ 08/31/2016 ALLSCRIPTS SUMMARY +++++++++++ ^^^^ Ureteroscopy on the right side lithoclast 2012. -KUB 2014 possible stone left lower pole. -Surveillance imaging ====03/13/19==== 4 weeks of bilateral lower back pain. No obvious obstruction or ureteral stone on CT. Will call with official read. We are sending today's urine for culture and will call her with the results. We will start her on Bactrim. I told her to go to the emergency room if fever or persistent symptoms. We will see her back in 6 months with KUB to discuss the intrarenal stone Assessment & Plan (09/06/2016 3:40 PM EST): The KUB with small bilateral calculi. No intervening renal colic Encounters Date Type Department Care Team Description 11/28/2024 Refill [facility] Internal Medicine - Family [facility] [address] [address] Yvonne Cox APRN-DAISY Bipolar affective disorder, currently depressed, mild ([facility]-H[facility]) 11/25/2024 Travel 11/19/2024 Orders Only [facility] Internal [facility] - Family [facility] [address] [place] [address] Yvonne Cox OFFICE 365 CONSULTANT-JEWELRY DRILL OPERATOR Elevated LFTs (Primary Dx); History of hepatitis C 11/19/2024 Orders Only [facility] [address] [place] [address] Yvonne Cox OFFICE 365 CONSULTANT-JEWELRY DRILL OPERATOR Leukocytosis, unspecified type (Primary Dx) 11/18/2024 Orders Only [facility] Internal [facility] - Family [facility] [address] [address] Yvonne Cox APRN-DAISY 11/05/[address] [facility] [address] [address] Yvonne Cox OFFICE 365 CONSULTANT-DAISY Migraine without aura and without status migrainosus, not intractable 10/13/2024 9:50 PM EDT - 10/13/2024 11:59 PM EDT Hospital Encounter [facility] [address] [place] [address] Blood tests for routine general physical examination Discharge Disposition: Home 10/13/2024 3:20 PM EDT Office Visit [facility] Internal Medicine - Family Medicine [address] [place] [address] Yvonne Cox APRN-DAISY Annual physical exam (Primary Dx); Insomnia, unspecified type; Blood tests for routine general physical examination; Leukocytosis, unspecified type 10/13/2024 Travel 10/11/2024 Refill [facility] Internal Medicine - Family Medicine [address] [address] Yvonne Cox APRN-DAISY Lumbar back pain with radiculopathy affecting left lower extremity 09/11/2024 11:00 AM EDT Clinical Support [facility] Internal Medicine - Family Medicine [address] [address] 09/11/2024 Orders Only [facility] Internal Medicine - Family Medicine [address] [place] [address] Yvonne Cox APRN-DAISY 09/09/2024 Telephone [facility] Internal Medicine - Family Medicine [address] [place] [address] Jumana Kaur, FINANCIAL COORDINATOR 09/08/2024 2:20 PM EDT Office Visit [facility] Internal Medicine - Family Medicine [address] [address] Yvonne Cox APRN-DAISY Benign essential HTN (Primary Dx) 09/08/2024 Travel 09/07/2024 Refill [facility] Internal Medicine - Family Medicine [address] [place] [address] Yvonne Cox OFFICE 365 CONSULTANT-DAISY Migraine without aura and without status migrainosus, not intractable from Last 3 Months Family History Medical History Relation Name Comments Kidney disease Father Relation Name Status Comments Father Alive Mother Alive Social History Tobacco Use Types Packs/Day Years Used Date Smoking Tobacco: Every Day Cigarettes 0.5 20 Smokeless Tobacco: Never Tobacco Cessation:Ready to Q uit: No; Counseling Given: Yes Alcohol Use Standard Drinks/Week Comments Not Currently [...] on file Sexual Orientation Not on file Last Filed Vital Signs Vital Sign Reading Time Taken Comments Blood Pressure 128/78 10/13/2024 3:16 PM EDT Pulse 100 10/13/2024 3:16 PM EDT Temperature 37.4 C (99.3 F) 10/13/2024 3:16 PM EDT Respiratory Rate 16 10/13/2024 3:16 PM EDT Oxygen Saturation 98% 10/13/2024 3:16 PM EDT Inhaled Oxygen Concentration - - Weight 102.7 kg (226 lb 6.4 oz) 10/13/2024 3:16 PM EDT Height 154.9 cm (5' 0.98 ) 10/13/2024 3:16 PM ED T Body Mass Index 42.8 10/13/2024 3:16 PM EDT Plan of Treatment Upcoming Encounters Date Type Department Care Team (Late st Contact Info) Description 04/14/2025 3:20 PM EDT Office Visit [facility] Internal Medicine - Family Medicine [address] [address] Yvonne Cox, OFFICE 365 CONSULTANT-JEWELRY DRILL OPERATOR [address] [address] Health Maintenance Due Date Last Done Comments Tobacco Counseling 1987 DTaP,Tdap and Td Vaccines (2 - Td or Tdap) 12/21/2019 12/20/2009 Depression Screening 06/14/2024 06/14/2023 Influenza Vaccine 03/02/2025 Pap Smear 09/19/2025 09/19/2022 Adult BMI Follow Up Plan 10/13/2025 10/13/2024 Adult BMI Screening 10/13/2025 10/13/2024 Tobacco Screening 10/13/2025 10/13/2024 Medical Devices Not on file Procedures Procedure Name Priority Date/Time Associated Diagnosis Comments FLOW CYTOMETRY, VARIES Routine 3:45 PM EDT Leukocytosis, unspecified type CBC WITH AUTO DIFFERENTIAL Routine 11/25/2024 3:45 PM EDT Leukocytosis, unspecified type COMPREHENSIVE METABOLIC PANEL Routine 10/13/2024 3:48 PM EDT Blood tests for routine general physical examination LIPID PROFILE Routine 10/13/2024 3:48 PM EDT Blood tests for routine general physical examination HEMOGLOBIN A1C Routine 10/13/2024 3:48 PM EDT Blood tests for routine general physical examination TSH Routine 10/13/2024 3:48 PM EDT Blood tests for routine general physical examination CBC WITH AUTO DIFFERENTIAL Routine 10/13/2024 3:48 PM EDT Blood tests for routine general physical examination from Last 3 Months Results * (ABNORMAL) CBC auto differential (11/25/2024 3:45 PM EDT) Only the most recent of2 resultswithin the time period is included. WBC 13.0(H) 4 - 11 x10E9/L 11/25/2024 10:49 PM EDT [facility] RBC Count 4.41 3.8 - 5.2 X10E12/L 11/25/2024 10:49 PM EDT [facility] Hemoglobin 13.3 11.7 - 15.5 g/dL 11/25/2024 10:49 PM EDT [facility] Hematocrit 39.2 35 - 47 % 11/25/2024 10:49 PM EDT [facility] MCV 89 80 - 100 fL 11/25/2024 10:49 PM EDT [facility] MCH 30.2 27 - 34 pg 11/25/2024 10:49 PM EDT [facility] MCHC 34.0 32 - 36 g/dL 11/25/2024 10:49 PM EDT [facility] RDW 14.9 11.5 - 15 % 11/25/2024 10:49 PM EDT [facility] Platelet Count 163 150 - 450 X10E9/L 11/25/2024 10:49 PM EDT [facility] MPV 11.2 7 - 12 fL 11/25/2024 10:49 PM EDT [facility] Neutrophils Relatives 67 % 11/25/2024 10:49 PM EDT [facility] Comment:This is an appended report. These results have been appended to a previously preliminary verified report. Lymphocytes Relative 18 % 11/25/2024 10:49 PM EDT [facility] Comment:This is an appended report. These results have been appended to a previously preliminary verified report. Monocytes Relative 9 % 11/25/2024 10:49 PM [facility] Comment:This is an appended report. These results have been appended to a previously preliminary verified report. Eosinophils Relative 5 % 11/25/2024 10:49 PM [facility] Comment:This is an appended report. These results have been appended to a previously preliminary verified report. Atypical Lymphocytes Relative 1 % 11/25/2024 10:49 PM [facility] Comment:This is an appended report. These results have been appended to a previously preliminary verified report. Neutrophils Absolute (M) 8.7(H) 1.5 - 6.6 10*3/uL 11/25/2024 10:49 PM [facility] Comment:This is an appended report. These results have been appended to a previously preliminary verified report. Lymphocytes Absolute 2.5 1.0 - 3.5 10*3/uL 11/25/2024 10:49 PM [facility] Comment:This is an appended report. These results have been appended to a previously preliminary verified report. Monocytes Absolute 1.2(H) 0.0 - 0.9 10*3/uL 11/25/2024 10:49 PM [facility] Comment:This is an appended report. These results have been appended to a previously preliminary verified report. Eosinophils Absolute 0.6(H) 0.0 - 0.4 10*3/uL 11/25/2024 10:49 PM [facility] Comment:This is an appended report. These results have been appended to a previously preliminary verified report. Polychromasia 1+ 11/25/2024 10:49 PM [facility] Comment:This is an appended report. These results have been appended to a previously preliminary verified report. Differential Type CELLAVISION DIFFERENTIAL 11/25/2024 10:49 PM [facility] Comment:This is an appended report. These results have been appended to a previously preliminary verified report. Blood Venous blood / Unknown Venipuncture / Unknown 11/25/2024 3:45 PM EDT 11/25/2024 3:46 PM EDT us Yvonne Cox OFFICE 365 CONSULTANT-JEWELRY DRILL OPERATOR LAB BLOOD ORDERABLES Final Result [facility] [address] [place] [address], [place] [phone] * Flow Cytometry, Varies (11/25/2024 3:45 PM EDT) Case Report Flow Cytometry Report Case: [id number] Authorizing Provider: Yvonne Cox, Collected: 11/25/2024 1545 OFFICE 365 CONSULTANT-JEWELRY DRILL OPERATOR Ordering Location: [facility] Received: 11/25/2024 1546 Internal Medicine - Family Medicine Pathologist: Carla Eddy DO Specimen: Blood, Venous 11:33 AM EDT [facility] Flow Interpretation Normal peripheral blood immunophenotyping study. No monotypic B-cell population or increase in blasts identified. CBC and flow cytometry results: WBC: 12.2 x 10^9/L Lymphocytes: 2.8 x 10^9/L Blasts: Not increased on CD45/side scatter analysis or CD34 staining. B-cells: No monotypic population identified; normal expression pattern of CD19, surface kappa and surface lambda. T-cells/NK-cells: No aberrant phenotype by CD3 and CD16. A Young stained peripheral blood smear is reviewed. 11:33 AM EDT [facility] at 1133 EDT Flow Interpretation Comment Immunophenotyping antibodies tested: CD3, CD4, CD8, CD16, CD19, CD34, CD45, Selden, and Lambda. Immunophenotyping Comment: Immunophenotyping has been used in this diagnostic evaluation. This test was developed and its performance characteristics determined by the [facility] Department. It has not been cleared or approved by the U.S. Food and Drug Administration. The FDA has determined that such clearance or approval is not necessary. This test is used for clinical purposes. It should not be regarded as investigational or for research. This laboratory is certified under the Clinical Laboratory Improvement Amendments of 1988 ( CLIA ) as qualified to perform high-complexity clinical testing. 11:33 AM EDT [facility] Embedded Images 11:33 AM EDT [facility] Blood Venous blood / Unknown 11/25/2024 3:45 PM EDT 11/25/2024 3:46 PM EDT us Yvonne GONZALEZ PATHOLOGY/CYTOLOGY O RDERABLES Final Result [facility] [address] [place] [address], * TSH (10/13/2024 3:48 PM EDT) TSH 1.66 0.49 - 4.67 uIU/mL 10/13/2024 10:28 PM EDT [facility] PLASMA 10/13/2024 3:48 PM EDT 10/13/2024 9:51 PM EDT Yvonne GONZALEZ LAB BLOOD ORDERABLES Final Result Performing Organization Address City/[facility]/ZIP Co de Phone Number [facility] [address] [place] [address] * Hemoglobin A1c (10/13/2024 3:48 PM EDT) Hemoglobin A1C 5.5 4.4 - 5.6 % 10/13/2024 10:18 PM EDT [facility] Comment: NOTE ADA Guidelines Result HgbA1c Normal : less than 5.7 % Prediabetes : 5.7 % to 6.4 % Diabetes : > 6.4 % Use with caution in patients with abnormal hemoglobin variants as the half-life of red blood cells and in vivo glycation rates are affected. Average glucose 111 mg/dL 10:18 PM EDT [facility] PLASMA 10/13/2024 3:48 PM EDT 10/13/2024 9:51 PM EDT us Yvonne Cox OFFICE 365 CONSULTANT-[facility] LAB BLOOD ORDERABLES Final Result [facility] [address], [address] [place] [address] * (ABNORMAL) Lipid profile (10/13/2024 3:48 PM EDT) Pathologist [facility] Cholesterol 182 150 - 200 mg/dL 10/13/2024 10:26 PM EDT [facility] Triglycerides 294(H) 27 - 150 mg/dL 10/13/2024 10:26 PM EDT [facility] HDL Cholesterol 33(L) >39 mg/dL 10:26 PM EDT [facility] Comment: HDL <40 mg/dL - High Risk HDL > or = 40mg/dL- Desirable HDL >60 mg/dL - Negative Risk VLDL 59(H) 0 - 30 mg/dL 10/13/2024 10:26 PM EDT [facility] LDL (calc) 90 <130 mg/dL 10/13/2024 10:26 PM EDT [facility] Comment: LDL <100 mg/dL - Desirable LDL >160 mg/dL - High Risk Cholesterol:HDL Ratio 5.5(H) 1.0 - 5.0 10/13/2024 10:26 PM EDT [facility] PLASMA 10/13/2024 3:48 PM EDT 10/13/2024 9:51 PM EDT us Yvonne Cox OFFICE 365 CONSULTANT-JEWELRY DRILL OPERATOR LAB BLOOD ORDERABLES Final Result KEN [facility] [address] [place] [address] * (ABNORMAL) Comprehensive metabolic panel (10/13/2024 3:48 PM EDT) Sodium 137 134 - 146 mmol/L 10/13/2024 10:26 PM EDT [facility] Potassium, Bld 3.6 3.5 - 5.0 mmol/L 10/13/2024 10:26 PM EDT [facility] Chloride 105 98 - 109 mmol/L 10/13/2024 10:26 PM EDT [facility] CO2 24 22 - 32 mmol/L 10/13/2024 10:26 PM EDT [facility] Anion gap 8 5 - 15 mmol/L 10/13/2024 10:26 PM EDT [facility] BUN 11 5 - 23 mg/dL 10/13/2024 10:26 PM EDT [facility] Creatinine 0.74 0.40 - 1.00 mg/dL 10/13/2024 10:26 PM EDT [facility] Comment:METHOD TRACEABLE TO IDMS STANDARD Glucose 99 65 - 99 mg/dL 10/13/2024 10:26 PM EDT [facility] Calcium 8.8 8.5 - 10.5 mg/dL 10/13/2024 10:26 PM EDT [facility] Total Protein 6.7 6.0 - 8.0 g/dL 10/13/2024 10:26 PM EDT [facility] Albumin 3.7 3.2 - 5.3 g/dL 10/13/2024 10:26 PM EDT [facility] Alkaline Phosphatase 154(H) 39 - 130 U/L 10/13/2024 10:26 PM EDT [facility] AST 29 0 - 41 U/L 10/13/2024 10:26 PM EDT [facility] ALT 53(H) 0 - 31 U/L 10/13/2024 10:26 PM EDT [facility] Total bilirubin 0.2(L) 0.3 - 1.2 mg/dL 10/13/2024 10:26 PM EDT [facility] eGFR (CKD-EPI)non-rac e dependent >90 >59 ml/min/1.7 3sq.m 10/13/2024 10:26 PM EDT [facility] Comment: Reported eGFR is based on the CKD-EPI 2020 equation that does not use a race coefficient. PLASMA 10/13/2024 3:48 PM EDT 10/13/2024 9:51 PM EDT us Yvonne Cox APRN-JEWELRY DRILL OPERATOR LAB BLOOD ORDERABLES Final Result [facility] [address] [place] [address] from Last 3 Months Insurance [facility] MEDICAID Member Subscriber Plan / Payer (Ef fective 2024-Present) Name:Farideh Peoples Relation to Subscriber:Self Name:Farideh Peoples Payer ID:Not on file Group ID:[id number] Type:Not on file Address: [facility] [address] [place] [id number] Care Teams Dance Hall Host/Hostess Relationship Specialty Start Date End Date Yvonne Cox APRN-JEWELRY DRILL OPERATOR [address] [address] PCP - General Family Medicine 11/03/22
--- OUTSIDE RECORDS SUMMARY | 2024-12-08 21:01 | XMS_ITS | Patient Health Record ---
Author Organization [facility] Address [address] [place] [address] Care Team Providers Care Open Claims Representative Name Role Phone Dr. Manny Singh Primary Care Provider [phone] Earlene Trevino Unavailable [phone] Marisela Holt Unavailable [phone] Reason For Referral No Information Medications Medication SIG (Take, Route, Fr equency, Duration) Notes Start Date End Date Status Ibuprofen 800 MG 1 tablet with food o r milk as needed Orally Three times a day 01/26/2022 Active Ibuprofen 800 MG 1 tablet with food o r milk as needed Orally Three times a day 03/13/2022 Active Encounters Encounter Location Date Provider Diagnosis [facility] [address] [place] [address] 08/07/2024 Marisela Holt Encounter for dental examination and cleaning with abnormal findings Z01.21 ; Other dental procedure status Z98.818 ; Acute gingivitis, plaque induced K05.00 and Dental caries on pit and fissure surface penetrating into dentin K02.52 [facility] [address] [place] [address] 10/16/2024 Marisela Holt Dental caries on pit and fissure surface penetrating into dentin K02.52 Assessments Encounter Date Diagnosis (ICD Code) Assessment Notes Treatment Notes Treatment Clinical Notes Section Notes 08/07/2024 Encounter for dental examination and cleaning with abnormal findings (ICD-10 - Z01.21) 10/16/2024 Dental caries on pit and fissure surface penetrating into dentin (ICD-10 - K02.52) 08/07/2024 Other dental procedure status (ICD-10 - Z98.818) 08/07/2024 Acute gingivitis, plaque induced (ICD-10 - K05.00) 08/07/2024 Dental caries on pit and fissure surface penetrating into dentin (ICD-10 - K02.52) Plan Of Treatment Next Appt Details Provider Name:Manny Singh, 0 01/27/2025 03:45:00 PM, [address], [place], [address], Provider Name:Marisela Holt, 02/03/2025 02:00:00 PM, [address], [place], [address], Provider Name:Earlene Uriel , 06/15/2025 08:00:00 AM, [address], [place], [address], Insurance Providers Payer Name Payer Address Payer Phone Subscriber Number Group Number Insured Name Patient Relationship to Insured Coverage Start Date Coverage End Date z[employer]OUN T ADVANTAGE -termed [address] [place] [address] [id number] [employer] Self - patient is the insured 2 3 [employer] [place] Medicaid [address] [place] [address] [id number] [employer] Self - patient is the insured 3 zMEDICAID [employer] after PARAMOUNT -termed [address] [place] [address] [id number] [employer] Self - patient is the insured 2 3 [facility] [address] [place] [address] [id number] [employer] Self - patient is the insured 3 zDENTAL DQ PARAMOUNT -termed 22 [address] [place] [address] [id number] [employer] Self - patient is the insured 2 3 zDental MEDICAID [facility] after PARAMOUNT -termed 22 [address] [place] [address] [id number] [employer] Self - patient is the insured 2 3 [place] [address] [place] [address] [id number] [employer] Self - patient is the insured 3 Dental Wrap [facility] [place] BCBS [address] [place] [address] [id number] [employer] Self - patient is the insured 3 DENTAL LIBERTY [address] [address] [place] [address] [id number] ANOHCAIDA [id number] [employer] Self - patient is the insured 5
--- OUTSIDE RECORDS SUMMARY | 2024-12-08 21:01 | XMS_ITS | Encounter Summary ---
Author Organization [facility] tem Address [id number] [address] [place] [address] Care Team Providers Care Plumbing Manager Name Role Phone Yvonne Cox SALES REPRESENTATIVE GRAPHIC ART-AUTO TESTER Primary Care Provid er Encounter Details Date Type Department Care Team (Late st Contact Info) Description 11/28/2023 Orders Only [facility] Internal Medicine - Family Medicine [address] [place] [address] External, Scanning Provider Social History Tobacco Use [...] before we got money to buy more. Often True 05/26/2023 Within the past 12 months th e food we bought just didn't last and we didn't have money to get more. Often True 05/26/2023 Purpose - Life Answer Date Recorded Purpose [...] Medicine - Family Medicine [address] [place] [address] Yvonne Cox APRN-AUTO TESTER [address] [place] [address] documented as of this encounter Procedures Procedure Name Priority Date/Time Associated Diagnosis Comments US PELVIC WITH TRANSVAGINAL Routine 11/27/2023 11:56 AM EDT documented in this encounter Results * Ultrasound pelvic with transvaginal (11/27/2023 11:56 AM EDT) Anatomical Region Laterality Modality Body, Pelvis Ultrasound us Scanning Provider External IMG US ORDERABLES Fin al Result documented in this encounter Visit Diagnoses Not on filedocumented in this encounter Additional Health Concerns Assessment Noted Time PHQ-9 Depression Total Score: 0 06/14/20 23 2:03 PM EST A Body Mass Index follow-up plan has been documented for the patient 06/14/2023 2:48 PM EST documented as of this encounter Care Teams Plumbing Manager Relationship Specialty Start Date End Date Yvonne Cox SALES REPRESENTATIVE GRAPHIC ART-AUTO TESTER [address] [place] [address] PCP - General Family Medicine 11/03/22 documented as of this encounter
--- OUTSIDE RECORDS SUMMARY | 2024-12-08 21:01 | XMS_ITS | Encounter Summary ---
Author Organization [facility] tem Address [facility] [place] [id number] [address] [place] [address] Care Team Providers Care Operations Coordinator Name Role Phone Yvonne Cox MANAGER INTEL-[employer]CHOOL AGE PROGRAM TEACHER Primary Care Provid er Encounter Details Date Type Department Care Team (Late st Contact Info) Description 05/05/2024 Orders Only [facility] Internal Medicine - Family Medicine [address] [place] [address] Ref Prov, [place] [address] Social History Tobacco Use Types Packs/Day Years [...] Medicine - Family Medicine [address] [place] [address] Yvonne Cox MANAGER [employer]CHO[employer] AGE PROGRAM TEACHER [address] [place] [address] documented as of this encounter Procedures Procedure Name Priority Date/Time Associated Diagnosis Comments XR CHEST 1 VW Routine 05/05/2024 11:29 AM EST documented in this encounter Results * X-ray chest 1 view (05/05/2024 11:29 AM EST) Anatomical Region Laterality Modality Body, Chest N/A Computed Radiogr aphy us Not In System Ref Prov IMG DIAGNOSTIC IMAGING OR DERABLES Final Result documented in this encounter Visit Diagnoses Not on filedocumented in this encounter Additional Health Concerns Assessment Noted Time PHQ-9 Depression Total Score: 0 06/14/20 23 2:03 PM EST A Body Mass Index follow-up plan has been documented for the patient 06/14/2023 2:48 PM EST documented as of this encounter Care Teams Operations Coordinator Relationship Specialty Start Date End Date Yvonne Cox MANAGER [employer] AGE PROGRAM TEACHER [address] [place] [address] PCP - General Family Medicine 11/03/22 documented as of this encounter
--- OUTSIDE RECORDS SUMMARY | 2024-12-08 21:01 | XMS_ITS | Encounter Summary ---
Author Organization [facility] Address [address] [facility] [facility] [place] [address] Care Team Providers Care Experimental Technician Name Role Phone Unavailable Primary Care Provider Unavailabl e Encounter Details Date Type Department Care Team (Late st Contact Info) Description 12/18/2023 Orders Only [facility] [address] [address] Alyce Lechuga LPN [address] [facility] [place] [address] Social History Tobacco Use Types Packs/Day Years [...] EDT Office Visit [facility] [address] [place] [address] Aurelio Stanley DO [address] [facility] [place] [address] documented as of this encounter Procedures Procedure Name Priority Date/Time Associated Diagnosis Comments PAP SMEAR Routine 11/06/2023 12:00 AM EDT documented in this encounter Results * Pap Smear (11/06/2023 12:00 AM EDT) Swab Cervical swab / Unknown us [facility] Jaden Nurse LAB CYTOLOGY ORDERABLES Final Result EXTERNAL LAB documented in this encounter Visit Diagnoses Not on filedocumented in this encounter
--- OUTSIDE RECORDS SUMMARY | 2024-12-08 21:01 | XMS_ITS | Encounter Summary ---
Author Organization [facility] Address [address] [facility] [place] [address] Care Team Providers Care Slate Cutter Operator Name Role Phone Unavailable Primary Care Provider Unavailabl e Encounter Details Date Type Department Care Team (Late st Contact Info) Description 09/02/2024 Abstract [facility] [address] [place] [address] Aurelio Stanley, DO [address] [place] [address] Social History Tobacco Use Types Packs/Day [...] EDT Office Visit [facility] [address] [place] [address] Aurelio Stanley, DO [address] [place] [address] documented as of this encounter Visit Diagnoses Not on filedocumented in this encounter
--- OUTSIDE RECORDS SUMMARY | 2024-12-08 21:01 | XMS_ITS | Encounter Summary ---
Author Organization [facility] Address [id number] [address] [place] [address] Care Team Providers Care Putty Remover Name Role Phone Yvonne Cox BROADCAST METEOROLOGIST-SEALER OPERATOR Primary Care Provid er Encounter Details Date Type Department Care Team (Late st Contact Info) Description 07/15/2024 [facility]phone [facility] Family [facility] [address] [place] [address] Gt Wood CMA Social History Tobacco Use Types Packs/Day Years [...] got money to buy more. Never True 07/14/2024 Within the past 12 months th e food we bought just didn't last and we didn't have money to get more. Never True 07/14/2024 Purpose - Life Answer Date Recorded Purpose and direction in life Unknown Comments No Sex and Gender Information Value Date Recorded Sex Assigned at Not on file Legal Sex Female 11:36 AM EDT Gender Identity Not on file Sexual Orientation Not on file documented as of this encounter Miscellaneous Notes * Telephone Encounter - Gt Wood CMA - 07/15/2024 8:23 AM EST ----- Message from LISA Rodriguez sent at 07/15/2024 7:02 AM EST ----- Reviewed. Inform patient D level is right at normal ranges. I sent over new prescription for D3 2,000 units oral daily. * Telephone Encounter - Gt Wood CMA - 07/15/2024 8:23 AM EST I called pt and read result note. She verbally states she understands. documented in this encounter Plan of Treatment Upcoming Encounters Date Type Department Care Team (Late st Contact Info) Description 04/14/2025 3:20 PM EDT Office Visit [facility] Internal Medicine - Family Medicine [address] [place] [address] Yvonne Cox APRN-CNP [address] [place] [address] documented as of this encounter Visit Diagnoses Not on filedocumented in this encounter Additional Health Concerns Assessment Noted Time PHQ-9 Depression Total Score: 0 06/14/20 23 2:03 PM EST A Body Mass Index follow-up plan has been documented for the patient 07/14/2024 1:31 PM EST documented as of this encounter Care Teams Putty Remover Relationship Specialty Start Date End Date Yvonne Cox APRN-SEALER OPERATOR [address] [place] [address] PCP - General Family Medicine 11/03/22 documented as of this encounter
--- OUTSIDE RECORDS SUMMARY | 2024-12-08 21:01 | XMS_ITS | Patient Health Record ---
Author Organization [facility] [place] Address [address] [place] [address] Care Team Providers Care Pattern Layout Worker Name Role Phone None, Unknown or Primary Care Provider Unavailab le Allergies No Known Allergies Reason For Referral No Information Social History Tobacco Use: Social History Observation Description Date Details (start date - stop date) Current Smoker NA - NA Tobacco Use/Smoking Question Answer Notes Patient is a current smoker Plan Of Treatment No Information Insurance Providers Payer Name Payer Address Payer Phone Subscriber Number Group Number Insured Name Patient Relationship to Insured Coverage Start Date Coverage End Date [employer] [place] [employer] [address] [address] [place] [phone] [id number] Farideh Peoples Self - patient is the insured 3 Medical (General) History Medical History History ICD Code Ingrowing nail L60.0 Acute paronychia of toe of right foot L0 3.031 Abscess of right foot L02.611
--- OUTSIDE RECORDS SUMMARY | 2024-12-08 21:01 | XMS_ITS | Encounter Summary ---
Author Organization [facility] Address [facility] [id number] [address] [place] [address] Care Team Providers Care Green Chain Worker Name Role Phone Yvonne Cxo Primary Care Provid er Reason for Referral * Consultation (Routine) - Pending Review Specialty Diagnoses / Procedures Referred By Alaina soni Referred To Contact Gastroenterology Diagnoses Elevated LFTs History of hepatitis C Yvonne Cox APRN-CNP [address] [place] [address] Phone: tel: fax: Diamond Parson MD [address] [place] [address] Phone: tel: fax: Referral ID Status Reason Start Date Expiration Date Visits Requested Visits Authorized [id number] Pending Review Specialty Services Required 11/19/2024 11/19/2025 1 1 Encounter Details Date Type Department Care Team ([facility] Contact Info) Description 11/19/2024 Orders Only [facility] Internal Medicine - Family Medicine [address] [place] [address] Yvonne Cox APRN-CNP [address] [place] [address] Elevated LFTs (Primary Dx); History of hepatitis C Social History Tobacco Use Types Packs/Day Years [...] - Family Medicine [address] [place] [address] Yvonne Cox, GUEST REQUEST RUNNER-TAB CUTTING MACHINE OPERATOR [address] [place] [address] Scheduled Referrals Name Type Priority Associated Diagnoses Order Schedule Ambulatory referral to Gastroenterology ([facility]) Outpatient Referral Routine Elevated LFTs History of hepatitis C 1 Occurrences starting 11/19/2024 until 11/19/2025 documented as of this encounter Visit Diagnoses Diagnosis Elevated LFTs- Primary Other abnormal blood chemistry History of hepatitis C Personal history of other infectious and parasitic disease documented in this encounter Additional Health Concerns Assessment Noted Time PHQ-9 Depression Total Score: 0 06/14/20 2:03 PM EST A Body Mass Index follow-up plan has been documented for the patient 10/13/2024 3:58 PM EDT documented as of this encounter Care Teams Green Chain Worker Relationship Specialty Start Date End Date Yvonne Cox, GUEST REQUEST RUNNER-TAB CUTTING MACHINE OPERATOR [address] [address] PCP - General Family Medicine 11/03/22 documented as of this encounter
--- OUTSIDE RECORDS SUMMARY | 2024-12-08 21:02 | XMS_ITS | Encounter Summary ---
Author Organization [facility] Address [address] [facility] [place] [address] Care Team Providers Care Electrical Line Worker Name Role Phone Unavailable Primary Care Provider Unavailabl e Encounter Details Date Type Department Care Team (Late st Contact Info) Description 12/08/2024 Bamboo flowsheet [facility] [address] [place] [address] Aurelio Stanley, DO [address] [place] [address] Social History Tobacco Use Types Packs/Day [...] EDT Office Visit [facility] [address] [facility] [place] [address] Aurelio Stanley, DO [address] [place] [address] documented as of this encounter Visit Diagnoses Not on filedocumented in this encounter
--- OUTSIDE RECORDS SUMMARY | 2024-12-08 21:02 | XMS_ITS | Encounter Summary ---
Author Organization [facility] Address [address] [facility] [address] Care Team Providers Care Motel Operator Name Role Phone Unavailable Primary Care Provider Unavailabl e Encounter Details Date Type Department Care Team (Late st Contact Info) Description 09/12/2024 Abstract [facility] [address] [place] [address] Aurelio Stanley, DO [address] [place] [address] Social History Tobacco Use Types Packs/Day [...] Visit [facility] [address] [place] [address] Aurelio Stanley, DO [address] [place] [address] documented as of this encounter Visit Diagnoses Not on filedocumented in this encounter
[2024-12-11 17:08] LABS: Age Gdln ACOG Testing Note (.); HPV Aptima Negative (Negative); IGP, Aptima HPV, rfx 16/18,45 Note (.)
== END 2024-12-08 20:59 | disposition home or self-care (01) ==
LOC: LAB 20:58
PROVIDERS: PCP Nurse Practitioner; Visit Provider Obstetrics & Gynecology
DX: Z01.419 Encounter for gynecological examination (general) (routine) without abnormal findings (principal)
CPT/HCPCS: 87624; 88175

== ENCOUNTER 2025-04-06 08:45 | Outpatient (OUT) | payer MEDICAID, SELFPAY ==
--- NOTE | 2025-04-06 08:50 | ECG_ITS ---
[facility] Test Date: 2025-04-06 Pat Name: TORY HSU Department: Room: - Gender: Female Medical Underwriter: : 1985 Requested By: HARSH CHAVEZ Order Number: [id number] Reading MD: RONALD MOURA M.D. Measurements Intervals [place] Rate: 89 P: 33 MT: 162 QRS: 75 QRSD: 95 T: 48 QT: 357 QTc: 436 Interpretive Statements SINUS RHYTHM Normal ECG Compared to ECG 09/01/2024 10:39:41 No significant changes Electronically Signed On 04-06-2025 18:26:03 EDT by RONALD MOURA M.D.
--- OUTSIDE RECORDS SUMMARY | 2025-04-06 08:52 | XMS_ITS | CCD ---
Author Organization [facility] Care Team Providers Care Electronic News Gathering Camera Person Name Role Phone Gerson Sheppard Admitting Unavailable [...] JEWELL ., MICHELLE HURTADO Consulting Unavailabl e EMILIANA [...] Unavailable Rony Villalobos Primary Care Provid er Unavailable Primary Care Provider UnavailRony Couch Primary Care Provid er RONY COX Attending Unavailable RONY COX Referring Unavailable RONY COX Primary Care Unavailable RONY COX Attending Unavailable RONY COX Referring Unavailable COX, RONY Aguirre Primary Care Unavailable COX, RONY Aguirre Referring Unavailable COX, RONY Aguirre Primary Care Unavailable OCX, RONY Aguirre Attending Unavailable COX, RONY Aguirre Referring Unavailable COX, RONY Carla Primary Care Unavailable COX, RONY Aguirre Referring Unavailable COX, RONY Aguirre Primary Care Unavailable COX, RONY Aguirre Referring Unavailable COX, RONY Carla Primary Care Unavailable COX, RONY Aguirre Referring Unavailable COX, RONY Aguirre Primary Care Unavailable Cox TRUST MANAGER-FAMILY COUNSELOR, Rony Aguirre Primary Care [facility] er Unavailable Primary Care Provider Unavailcesilia e AURELIO STANLEY Attending Unavailable JADEN, AURELIO Attending Unavailable AURELIO STANLEY Attending Unavailable AURELIO STANLEY Attending Unavailable Allergies Allergy Classification Reported Allergen(s) Allergy Type Date of Onset Reaction(s) Facility (1 source) Penicillin Drug Allergy [facility] (20 sources) Penicillins; Translations: [PENICILLINS] Propensity to adverse reactions to drug 7 [facility] ([facility] Penicillins Drug Intolerance 7 Unknown [facility] (9 sources) Penicillins Propensity to adverse reactions to drug 7 [facility] Medications Current Medications Medication Drug Class(es) Dates Sig (Normalized) Sig (Original) ARIPiprazole 5 mg oral tablet (20 sources) Atypical Antipsychotic Start: 06-14-2023 End: 01-22-2025 take 1 tablet by mouth in the morning ARIPiprazole (Abilify) 5 MG tablet Take 1 tablet by mouth in the morning. 10/15/2023 Active Start: 02-21-2023 Abilify Refill s(s) 0 [...] / eicosapentaenoic acid 180 mg oral capsule (12 sources) Start: 06-14-2023 End: 03-19-2025 take 1 capsule by mouth twice daily omega-3 (Fish Oil) 1000 MG capsule take 1 capsule by mouth twice a day as directed 06/14/2023 03/19/2025 Discontinued escitalopram 10 mg oral tablet (20 sources) Serotonin Reuptake Inhibitor Start: 05-01-2023 End: 01-22-2025 take 1 tablet by mouth in the morning escitalopram (Lexapro) 10 MG tablet Take 10 mg by mouth in the morning. 05/01/2023 Active Start: 02-21-2023 Lexapro Refill s(s) 0 Start Date: 02/21/23 Status: Ordered fexofenadine hydrochloride 180 mg oral tablet (20 sources) Histamine-1 Receptor Antagonist Start: 06-14-2023 End: 07-14-2024 take 1 tablet by mouth in the morning fexofenadine (Shelly) 180 MG tablet Take 180 mg by mouth in the morning. 06/14/2023 Active Start: 02-21-2023 Shelly Refill s(s) 0 Start Date: 02/21/23 Status: Ordered hydroCHLOROthiazide 12.5 mg oral tablet (20 sources) Thiazide Diuretic Start: 06-14-2023 End: 01-22-2025 take 1 tablet by mouth in the morning hydroCHLOROthiazide (HYDRODiuril) 12.5 MG tablet Take 12.5 mg by mouth in the morning. 06/14/2023 Active Start: 02-21-2023 hydrochlorothi azide 12.5 [...] Status: Ordered lisinopril 20 mg oral tablet (12 sources) Angiotensin Converting Enzyme Inhibitor Start: 09-08-2024 take 1 tablet by mouth in the morning lisinopriL (PRINIVIL,ZESTRIL) 20 mg tablet Indications: Benign essential HTN Take 1 tablet (20 mg total) by mouth in the morning. 30 tablet 6 09/08/2024 Active meloxicam 15 mg oral tablet (20 sources) Nonsteroidal Anti-inflammatory Drug Start: 06-14-2023 End: 01-22-2025 take 1 tablet by mouth in the morning meloxicam (Mobic) 15 MG tablet Take 1 tablet by mouth in the morning. 09/12/2023 Active methocarbamol 750 mg oral tablet (20 sources) Muscle Relaxant Start: 06-14-2023 End: 01-22-2025 methocarbamol (Robaxin) 750 MG tablet Take 750 mg by mouth in the morning and 750 mg at noon and 750 mg in the evening. 10/15/2023 Active SUMAtriptan 50 mg oral tablet (20 sources) Serotonin-1b and Serotonin-1d Receptor Agonist Start: 05-01-2023 End: 11-06-2024 SUMAtriptan (Imitrex) 50 MG tablet take 1 tablet by mouth if needed AT ONSET OF HEADACHE may repeat ... (REFER TO PRESCRIPTION NOTES). 05/01/2023 Active Start: 02-21-2023 sumatriptan Re fills(s) 0 Start Date: 02/21/23 Status: Ordered traZODone hydrochloride 100 mg oral tablet (12 sources) Serotonin Reuptake Inhibitor Start: 10-13-2024 End: 01-30-2025 take 1 tablet by mouth once daily traZODone (DESYREL) 100 mg tablet Indications: Insomnia, unspecified type TAKE 1 TABLET BY MOUTH EVERY DAY AT NIGHT 30 tablet 3 01/30/2025 Active Vitamin D3 5000 intl units (125 mcg) [...] (s) 0 Start Date: 02/21/23 Status: Ordered QUEtiapine 100 mg oral tablet (20 sources) Atypical Antipsychotic Start: 06-14-2023 End: 12-01-2024 take 1 tablet by mouth once daily QUEtiapine (SEROquel) 100 mg tablet Indications: Bipolar affective disorder, currently depressed, mild (CMS-HCC) Take 1 tablet (100 mg total) by mouth nightly. 30 tablet 5 07/14/2024 12/01/2024 Discontinued Start: 02-21-2023 Seroquel Refil ls(s) 0 Start Date: 02/21/23 Status: Ordered Problems Active Problems Problem Classification Problem Date Documented Date Episodic/Chronic Abdominal pain (4 sources) Pain in female pelvis; Translations: [Pelvic and perineal pain] 08-19-2024 Episodic Diseases of mouth; excluding dental (1 source) Aphthous ulcer of mouth; Translations: [Recurrent oral aphthae] 06-09-2024 Episodic Diseases of white blood cells (2 sources) Leukocytosis; Translations: [Elevated white blood cell count, unspecified] Onset: 11-25-2024 11-19-2024 Chronic Endometriosis (9 sources) Endometriosis (clinical); Translations: [Endometriosis, unspecified] Onset: 09-22-2024 09-22-2024 Chronic Essential hypertension (3 sources) Benign essential hypertension; Translations: [Essential (primary) hypertension] Onset: 09-08-2024 09-08-2024 Chronic Headache; including migraine (5 sources) Migraine without aura, not refractory ; Translations: [Migraine without aura, not intractable, without status migrainosus] Onset: 07-14-2024 07-14-2024 Chronic Immunizations and screening for infectious disease (1 source) Encounter for screening for human papillomavirus (HPV); Translations: [ENC SCREENING HUMAN PAPILLOMAVIRUS] Onset: 09-23-2022 Episodic Menstrual disorders (16 sources) Menorrhagia; Translations: [Excessive and frequent menstruation with regular cycle] Onset: 01-07-2024 01-07-2024 Chronic Mood disorders (7 sources) Bipolar affective disorder, currently depressed, mild; Translations: [Bipolar disorder, current episode depressed, mild] Onset: 07-14-2024 07-14-2024 Chronic Nutritional deficiencies (6 sources) Vitamin D deficiency; Translations: [Vitamin D deficiency, unspecified] Onset: 07-14-2024 07-14-2024 Chronic Other aftercare (1 source) Other supervisor intermediates (current) drug therapy; Translations: [OTH DETENTION CURRENT DRUG THERAPY] Onset: 07-13-2022 Episodic Other aftercare (2 sources) Surgical follow-up; Translations: [Encounter for follow-up examination after completed treatment for conditions other than malignant neoplasm] 09-22-2024 Episodic Other connective tissue disease (3 sources) Other specified soft tissue disorders; Translations: [OTHER SPEC SOFT TISSUE DISORDERS] Onset: 07-12-2022 Episodic Other female genital disorders (1 source) Pain in female genitalia on intercourse; Translations: [Unspecified dyspareunia] 03-19-2025 Chronic Other infections; including parasitic (1 source) H/O: infectious disease; Translations: [Personal history of other infectious and parasitic diseases] Onset: 02-13-2023 Episodic Other infections; including parasitic (1 source) History of hepatitis C 02-21-2023 Episodic Other nutritional; endocrine; and metabolic disorders (20 sources) Disorder of mineral metabolism; Translations: [Disorder [...] CARRIED OUT PT LEAVE] Onset: 07-10-2022 Episodic Residual codes; unclassified (2 sources) Insomnia; Translations: [Insomnia, unspecified] 10-13-2024 Episodic Residual codes; unclassified (1 source) Insomnia, unspecified; Translations: [Insomnia, unspecified] Onset: 10-13-2024 Episodic Skin and subcutaneous tissue infections (1 source) Local infection of the skin and subcutaneous tissue, unspecified; Translations: [LOCAL INFECT SKIN SUBQ TISSUE UNS] Onset: 07-13-2022 Episodic Spondylosis; intervertebral disc disorders; other back problems (12 sources) Lumbar radiculopathy; Translations: [Radiculopathy, lumbar region] Onset: 07-14-2024 07-12-2024 Episodic Substance-related disorders (1 source) Nicotine dependence, cigarettes, uncomplicated; Translations: [NICOTINE DEPEND CIGARETTES UNCOMP] Onset: 07-13-2022 Chronic Unclassified (3 sources) LOW BACK PAIN, UNSPECIFIED; Translations: [LOW BACK PAIN, UNSPECIFIED] Onset: 06-12-2022 Unclassified (1 source) Annual Exam Onset: 10-13-2024 Unclassified (1 source) discuss medication Onset: 07-14-2024 [...] Translations: [HYPOKALEMIA] Onset: 11-25-2021 Episodic Mood disorders (20 sources) Mood disorders Onset: 06-14-2023 06-14-2023 Other injuries and conditions due to external causes (1 source) Other specified injuries of head, initial encounter; Translations: [OTH SPEC INJURIES HEAD INITIAL ENC] Onset: 11-25-2021 Episodic Syncope (4 sources) Syncope and collapse; Translations: [SYNCOPE AND COLLAPSE] Onset: 11-23-2021 Episodic Unclassified (1 source) LOW BACK PAIN, UNSPECIFIED; Translations: [LOW BACK PAIN, UNSPECIFIED] Onset: 06-08-2022 Unclassified (20 sources) Onset: 06-14-2023 Resolved: 09-08-2024 06-14-2023 Urinary tract infections (1 source) Urinary tract infection, site not specified; Translations: [UTI SITE NOT SPECIFIED] Onset: 06-12-2022 Episodic Results Test Name Value Interpretation Reference Range Facil ity IGP,APTIMA HPV,AGE GDLNon AGE GDLN ACOG TESTING Note . [facility] Comment on above: TESTS RESULT FLAG UN ITS REF RANGE LAB Clinician Provided Cytology Information Source.............Cervix;Endocervix No. of containers..01 ThinPrep Vial Age Algo ACOG Myriam... 30-65 01 FLAG LEGEND: L-Low Normal,H-High Normal,LL-Alert Low,HH-Alert High <-Panic Low,>-Panic High,A-Abnormal,AA-Critical Abnormal Performed at: 01 =G [address] [address] Kya Lopez MD, HPV APTIMA Negative Negative [facility] Comment on above: This nucleic acid am plification test detects fourteen high- risk HPV types (16,18,31,33,35,39,45,51,52,56,58,59,66,68) without differentiation. Performed at: =G - [facility] [address], [place] [id number] Credit Card Analyst: Kya Lopez MD, Phone: [phone] Performed at: - [facility] [id number] Credit Card Analyst: Kya Lopez MD, Phone: [phone] IGP, APTIMA HPV, RFX 16/18,45 Note . [facility] Comment on above: TESTS RESULT FLAG UN ITS REF RANGE LAB DIAGNOSIS: 02 NEGATIVE FOR INTRAEPITHELIAL LESION OR MALIGNANCY. Specimen adequacy: 02 Satisfactory for evaluation. No endocervical component is identified. Performed by: 02 Hailey Frye, Instant Potato Processing Supervisor ([facility]) . 02 Note: Note 02 The Pap smear is a screening test designed to aid in the detection of premalignant and malignant conditions of the uterine cervix. It is not a diagnostic procedure and should not be used as the sole means of detecting cervical cancer. Both false-positive and false-negative reports do occur. Test Methodology: Note 02 This liquid based ThinPrep(R) pap test was screened with the use of an image guided system. HPV Genotype Reflex Note 02 Criteria not met, HPV Genotype not performed. FLAG LEGEND: L-Low Normal,H-High Normal,LL-Alert Low,HH-Alert High <-Panic Low,>-Panic High,A-Abnormal,AA-Critical Abnormal Performed at: [address] [facility] [place] [address] Kya Lopez MD, BRUSH-SPATULA CERVIX ENDOCERVIX [facility] CBC WITH AUTO DIFFERENTIALon 11-25-2024 CELLAVISION ATYPICAL LYMPHOCYTES RELATIVE PERCENT BY MANUAL COUNT 1 % Normal [facility] Comment on above: Result Comment: This is an appended report. These results have been appended to a previously preliminary verified report. Performed By: #### C BCA #### [facility] ([facility]) [address] [place] [address] VIR CELLAVISION DIFFERENTIAL TYPE CELLAVISION DIFFERENTIAL Normal [facility] Comment on above: Result Comment: This is an appended report. These results have been appended to a previously preliminary verified report. Performed By: #### C BCA #### [facility] ([facility]) [address] [place] [address] VIR CELLAVISION EOSINOPHILS ABSOLUTE COUNT (10*3/UL) BY MANUAL COUNT 0.6 10*3/uL High 0.0-0.4 [facility] Comment on above: Result Comment: This is an appended report. These results have been appended to a previously preliminary verified report. Performed By: #### C BCA #### [facility] ([facility]) [address] [place] [address] VIR CELLAVISION EOSINOPHILS PERCENT BY MANUAL COUNT 5 % Normal [facility] Comment on above: Result Comment: This is an appended report. These results have been appended to a previously preliminary verified report. Performed By: #### C BCA #### [facility] ([facility]) [address] [place] [address] VIR CELLAVISION LYMPHOCYTES ABSOLUTE COUNT (10*3/UL) BY MANUAL COUNT 2.5 10*3/uL Normal 1.0-3.5 [facility] Comment on above: Result Comment: This is an appended report. These results have been appended to a previously preliminary verified report. Performed By: #### C BCA #### [facility] ([facility]) [address] [place] [address] VIR CELLAVISION LYMPHOCYTES RELATIVE PERCENT BY MANUAL COUNT 18 % Normal [facility] Comment on above: Result Comment: This is an appended report. These results have been appended to a previously preliminary verified report. Performed By: #### C BCA #### [facility] ([facility]) [address] [place] [address] VIR CELLAVISION MONOCYTES ABSOLUTE COUNT (10*3/UL) IN BLOOD BY MANUAL COUNT 1.2 10*3/uL High 0.0-0.9 [facility] Comment on above: Result Comment: This is an appended report. These results have been appended to a previously preliminary verified report. Performed By: #### C BCA #### [facility] ([facility]) [address] [place] [address] VIR CELLAVISION MONOCYTES RELATIVE PERCENT BY MANUAL COUNT 9 % Normal [facility] Comment on above: Result Comment: This is an appended report. These results have been appended to a previously preliminary verified report. Performed By: #### C BCA #### [facility] ([facility]) [address] [place] [address] VIR CELLAVISION NEUTROPHILS ABSOLUTE COUNT BY MANUAL COUNT 8.7 10*3/uL High 1.5-6.6 [facility] Comment on above: Result Comment: This is an appended report. These results have been appended to a previously preliminary verified report. Performed By: #### C BCA #### [facility] ([facility]) [address] [place] [address] VIR CELLAVISION NEUTROPHILS RELATIVE PERCENT BY MANUAL COUNT 67 % Normal [facility] Comment on above: Result Comment: This is an appended report. These results have been appended to a previously preliminary verified report. Performed By: #### C BCA #### [facility] ([facility]) [address] [place] [address] VIR CELLAVISION POLYCHROMASIA IN BLOOD BY LIGHT MICROSCOPY 1+ Normal [facility] Comment on above: Result Comment: This is an appended report. These results have been appended to a previously preliminary verified report. Performed By: #### C BCA #### [facility] ([facility]) [address] [place] [address] VIR Erythrocyte distribution width (RBC) [Ratio] 14.9 % Normal 11.5-15 [facility] Comment on above: Performed By: #### C BCA #### [facility] ([facility]) [address] [place] [address] VIR Hematocrit (Bld) [Volume fraction] 39.2 % Normal 35-47 [facility] Comment on above: Performed By: #### C BCA #### [facility] ([facility]) [address] [place] [address] VIR Hemoglobin (Bld) [Mass/Vol] 13.3 g/dL Normal 11.7-15.5 [facility] Comment on above: Performed By: #### C BCA #### [facility] ([facility]) [address] [place] [address] VIR MCH (RBC) [Entitic mass] 30.2 pg Normal 27-34 [facility] Comment on above: Performed By: #### C BCA #### [facility] ([facility]) [address] [place] [address] VIR MCHC (RBC) [Mass/Vol] 34.0 g/dL Normal 32-36 [facility] Comment on above: Performed By: #### C BCA #### [facility] ([facility]) [address] [place] [address] VIR MCV (RBC) [Entitic vol] 89 fL Normal 80-100 [facility] Comment on above: Performed By: #### C BCA #### [facility] ([facility]) [address] [place] [address] VIR Platelet mean volume (Bld) [Entitic vol] 11.2 fL Normal 7-12 [facility] Comment on above: Performed By: #### C BCA #### [facility] ([facility]) [address] [place] [address] VIR Platelets (Bld) [#/Vol] 163 10*3/uL Normal 150-450 [facility] Comment on above: Performed By: #### C BCA #### [facility] ([facility]) [address] [place] [address] VIR RBC COUNT 4.41 X10E12/L Normal 3.8-5.2 [facility] Comment on above: Performed By: #### C BCA #### [facility] ([facility]) [address] [place] [address] VIR WBC (Bld) [#/Vol] 13.0 10*3/uL High 4-11 [facility] Comment on above: Performed By: #### C BCA #### [facility] ([facility]) [address] [place] [address] VIR CBC AND AUTO DIFFon 10-14-19 25 ABSOLUTE BASOPHIL 0.1 X10E9/L Normal 0.0-0.2 [facility] Comment on above: Performed By: #### C BCA, HA1C, CMP, 18464-9, 6-3 #### [facility] ([id number]) [address] [place] [address] ABSOLUTE NEUTROPHIL 11.1 X10E9/L High 1.5-6.6 [facility] Comment on above: Performed By: #### C BCA, HA1C, CMP, 38593-5, 6-3 #### [facility] ([id number]) [address] [place] [address] Basophils/100 WBC (Bld) 0.5 % Normal [facility] Comment on above: Performed By: #### C BCA, HA1C, CMP, 94467-2, 6-3 #### [facility] ([id number]) [address] [place] [address] Eosinophils (Bld) [#/Vol] 0.6 10*3/uL High 0.0-0.4 [facility] Comment on above: Performed By: #### C BCA, HA1C, CMP, 03614-7, 6-3 #### [facility] ([id number]) [address] [address] [place] [address] Eosinophils/100 WBC (Bld) 4.2 % Normal [facility] Comment on above: Performed By: #### C BCA, HA1C, CMP, 50200-4, 3015-3 #### [facility] ([id number]) [address] [address] [place] [address] Erythrocyte distribution width (RBC) [Ratio] 15.2 % High 11.5-15.0 [facility] Comment on above: Performed By: #### C BCA, HA1C, CMP, 32526-8, 3015-3 #### [facility] ([id number]) [address] [address] [place] [address] Hematocrit (Bld) [Volume fraction] 36.5 % Normal 35-47 [facility] Comment on above: Performed By: #### C BCA, HA1C, CMP, 08965-4, 6-3 #### [facility] ([id number]) [address] [address] [place] [address] Hemoglobin (Bld) [Mass/Vol] 12.4 g/dL Normal 11.7-15.5 [facility] Comment on above: Performed By: #### C BCA, HA1C, CMP, 81301-1, 6-3 #### [facility] ([id number]) [address] [address] [place] [address] Lymphocytes (Bld) [#/Vol] 3.1 10*3/uL Normal 1.0-3.5 [facility] Comment on above: Performed By: #### C BCA, HA1C, CMP, 92268-8, 3015-08 #### [facility] ([id number]) [address] [place] [address] Lymphocytes/100 WBC (Bld) 19.9 % Normal [facility] Comment on above: Performed By: #### C BCA, HA1C, CMP, , 3015-08 #### [facility] ([id number]) [address] [place] [address] MCH (RBC) [Entitic mass] 29.6 pg Normal 27-34 [facility] Comment on above: Performed By: #### C BCA, HA1C, CMP, , 3015-08 #### [facility] ([id number]) [address] [place] [address] MCHC (RBC) [Mass/Vol] 33.9 g/dL Normal 32-36 [facility] Comment on above: Performed By: #### C BCA, HA1C, CMP, , 3015-08 #### [facility] ([id number]) [address] [place] [address] MCV (RBC) [Entitic vol] 87 fL Normal 80-100 [facility] Comment on above: Performed By: #### C BCA, HA1C, CMP, , 3015-08 #### [facility] ([id number]) [address] [place] [address] Monocytes (Bld) [#/Vol] 0.5 10*3/uL Normal 0-0.9 [facility] Comment on above: Performed By: #### C BCA, HA1C, CMP, 36126-7, 3015- #### [facility] ([id number]) [address] [place] [address] Monocytes/100 WBC (Bld) 3.3 % Normal [facility] Comment on above: Performed By: #### C BCA, HA1C, CMP, 83193-8, 3015-08 #### [facility] ([id number]) [address], [facility] [address] [place] [address] Neutrophils/100 WBC (Bld) 72.1 % Normal [facility] Comment on above: Performed By: #### C BCA, HA1C, CMP, 33223-4, 3015-08 #### [facility] ([id number]) [address], [facility] [address] [place] [address] Platelet mean volume (Bld) [Entitic vol] 11.0 fL Normal 7-12 [facility] Comment on above: Performed By: #### C BCA, HA1C, CMP, 94294-2, 3015-08 #### [facility] ([id number]) [address], [facility] [address] [place] [address] Platelets (Bld) [#/Vol] 189 10*3/uL Normal 150-450 [facility] Comment on above: Performed By: #### C BCA, HA1C, CMP, , 3015-08 #### [facility] ([id number]) [address], [facility] [address] [place] [address] RBC COUNT 4.17 X10E12/L Normal 3.80-5.20 [facility] Comment on above: Performed By: #### C BCA, HA1C, CMP, 59532-6, 3015- #### [facility] ([id number]) [address], [facility] [address] [place] [address] WBC (Bld) [#/Vol] 15.4 10*3/uL High 4.0-11.0 [facility] Comment on above: Performed By: #### C BCA, HA1C, CMP, 61657-5, 3015-3 #### [facility] ([id number]) [address] [place] [address] COMPREHENSIVE METABOLIC PANE Ruiz 10-13-2024 Albumin [Mass/Vol] 3.7 g/dL Normal 3.2-5.3 [facility] Comment on above: Performed By: #### C BCA, HA1C, CMP, 14457-0, 3016-3 #### [facility] ([id number]) [address] [place] [address] ALP [Catalytic activity/Vol] 154 U/L High 39-130 [facility] [facility] Comment on above: Performed By: #### C BCA, HA1C, CMP, 92786-4, 6-3 #### [facility] ([id number]) [address], [address] [place] [address] ALT [Catalytic activity/Vol] 53 U/L High 0-31 [facility] Comment on above: Performed By: #### C BCA, HA1C, CMP, 18806-9, 6-3 #### [facility] ([id number]) [address], [address] [place] [address] Anion gap [Moles/Vol] 8 mmol/L Normal 5-15 [facility] Comment on above: Performed By: #### C BCA, HA1C, CMP, 58950-6, 6-3 #### [facility] ([id number]) [address], [address] [place] [address] AST [Catalytic activity/Vol] 29 U/L Normal 0-41 [facility] Comment on above: Performed By: #### C BCA, HA1C, CMP, 36263-9, 6-3 #### [facility] ([id number]) [address], [address] [place] [address] Bilirubin [Mass/Vol] 0.2 mg/dL Low 0.3-1.2 [facility] Comment on above: Performed By: #### C BCA, HA1C, CMP, 25754-3, 6-3 #### [facility] ([id number]) [address], [address] [place] [address] Calcium [Mass/Vol] 8.8 mg/dL Normal 8.5-10.5 [facility] Comment on above: Performed By: #### C BCA, HA1C, CMP, 95072-6, 6-3 #### [facility] ([id number]) [address], [address] [place] [address] Chloride [Moles/Vol] 105 mmol/L Normal 98-109 [facility] Comment on above: Performed By: #### C BCA, HA1C, CMP, 20920-9, 3015-3 #### [facility] ([id number]) [address], [facility] [address] [place] [address] CO2 [Moles/Vol] 24 mmol/L Normal 22-32 [facility] Comment on above: Performed By: #### C BCA, HA1C, CMP, 79966-1, 3015-3 #### [facility] ([id number]) [address], [address] [address] Creatinine [Mass/Vol] 0.74 mg/dL Normal 0.40-1.00 [facility] Comment on above: Result Comment: METH OD TRACEABLE TO IDMS STANDARD Performed By: #### C BCA, HA1C, CMP, 22764-7, 3015-3 #### [facility] ([id number]) [address], [address] [place] [address] eGFR (CKD-EPI) NON-RACE DEPENDENT >90 Normal >59 [facility] Comment on above: Result Comment: Reported eGFR is based on the CKD-EPI 2021 equation that does not use a race coefficient. Performed By: #### C BCA, HA1C, CMP, 50987-1, 6-3 #### [facility] ([id number]) [address], [address] [place] [address] Glucose [Mass/Vol] 99 mg/dL Normal 65-99 [facility] Comment on above: Performed By: #### C BCA, HA1C, CMP, 06681-1, 3016-3 #### [facility] ([id number]) [address], [address] [place] [address] Potassium [Moles/Vol] 3.6 mmol/L Normal 3.5-5.0 [facility] Comment on above: Performed By: #### C BCA, HA1C, CMP, 21070-2, 3016-3 #### [facility] ([id number]) [address], [address] [place] [address] Protein [Mass/Vol] 6.7 g/dL Normal 6.0-8.0 [facility] Comment on above: Performed By: #### C BCA, HA1C, CMP, 61850-6, 3016-3 #### [facility] ([id number]) [address] [place] [address] Sodium [Moles/Vol] 137 mmol/L Normal 134-146 [facility] Comment on above: Performed By: #### C BCA, HA1C, CMP, 07627-1, 3016-3 #### [facility] ([id number]) [address], [address] [place] [address] Urea nitrogen [Mass/Vol] 11 mg/dL Normal 5-23 [facility] Comment on above: Performed By: #### C BCA, HA1C, CMP, 82635-6, 3016-3 #### [facility] ([id number]) [address], [address] [place] [address] HGB A1C (GLYCO-HGB)on 2024 Glucose [Mass/Vol] 111 mg/dL Normal [facility] Comment on above: Performed By: #### C BCA, HA1C, CMP, 13076-8, 3016-3 #### [facility] ([id number]) [address], [address] [place] [address] HbA1c (Bld) [Mass fraction] 5.5 % Normal 4.4-5.6 [facility] Comment on above: Result Comment: NOTE ADA Guidelines Result HgbA1c Normal : less than 5.7 % Prediabetes : 5.7 % to 6.4 % Diabetes : > 6.4 % Use with caution in patients with abnormal hemoglobin variants as the half-life of red blood cells and in vivo glycation rates are affected. Performed By: #### C DANIEL, HA1C, CMP, 21179-5, 3016-3 #### [facility] ([id number]) [address], [address] [place] [address] Lipid 1996 panelon 5 Cholesterol [Mass/Vol] 182 mg/dL Normal 150-200 [facility] Comment on above: Performed By: #### C DANIEL, HARashmi, CMP, 11974-8, 3016-3 #### [facility] ([id number]) [address], [address] [place] [address] Cholesterol in HDL [Mass/Vol] 33 mg/dL Low >39 [facility] Comment on above: Result Comment: HDL <40 mg/dL - High Risk HDL > or = 40mg/dL- Desirable HDL >60 mg/dL - Negative Risk Performed By: #### C BCA, HA1C, CMP, 83075-2, 3016-3 #### [facility] ([id number]) [address], [address] [place] [address] Cholesterol in LDL [Mass/Vol] 90 mg/dL Normal <130 [facility] Comment on above: Result Comment: LDL <100 mg/dL - Desirable LDL >160 mg/dL - High Risk Performed By: #### C BCA, HA1C, CMP, 96951-0, 3016-3 #### [facility] ([id number]) [address], [address] [place] [address] Cholesterol in VLDL [Mass/Vol] 59 mg/dL High 0-30 [facility] Comment on above: Performed By: #### C BCA, HA1C, CMP, 40485-3, 3016-3 #### [facility] ([id number]) [address], [address] [place] [address] CHOLESTEROL:HDL 5.5 High 1.0-5.0 [facility] Comment on above: Performed By: #### C BCA, HA1C, CMP, 60173-2, 3016-3 #### [facility] ([id number]) [address], [address] [place] [address] Triglyceride [Mass/Vol] 294 mg/dL High 27-150 [facility] Comment on above: Performed By: #### C BCA, HA1C, CMP, 73714-6, 3016-3 #### [facility] ([id number]) [address], [address] [place] [address] TSH Qnon 10-13-2024 TSH 1.66 uIU/mL Normal 0.49-4.67 [facility] Comment on above: Performed By: #### C BCA, HA1C, CMP, 19905-3, 3016-3 #### [facility] ([id number]) [address], [address] [place] [address] ECG 12-LEADon 09-03-[address] [address] Electrocardiograph Report Signed Patient: FARIDEH HSU MR#: [id number] : 1985 Acct:[id number] Age/Sex: 39 / F ADM Date: 09/01/24 Loc: PST Attending Dr: Aurelio Stanley D.O. Ordering Physician: Aurelio Stanley D.O. Date of Service: 09/01/24 Procedure(s): ECG 12 lead Accession Number(s): [id number] cc: [facility] Test Date: 2024-09-01 Pat Name: FARIDEH HSU Department: Room: - Gender: Female Wheel Filler: : 1985 Requested By: AURELIO STANLEY Order Number: [id number] Reading MD: AFIA WESTBROOK M.D. Measurements Intervals [place] Rate: 90 P: 35 MI: 162 QRS: 76 QRSD: 98 T: 54 QT: 377 QTc: 462 Interpretive Statements SINUS RHYTHM No previous ECG available for comparison Electronically Signed On 09-02-2024 13:04:38 EST by AFIA WESTBROOK M.D. Dictated By: AFIA WESTBROOK M.D. Signed By: 09/03/24 0917 DD/ 1039 TD/TT: Supervisor Slashing Department: [facility] Radiology, Radiologist, MD - 09/03/2024 [place] [address] Electrocardiograph Report Signed Patient: FARIDEH HSU MR#: [id number] : 1985 Acct:[id number] Age/Sex: 39 / F ADM Date: 09/01/24 Loc: PST Attending Dr: Aurelio Stanley D.O. Ordering Physician: Aurelio Stanley D.O. Date of Service: 09/01/24 Procedure(s): ECG 12 lead Accession Number(s): [id number] cc: [facility] Test Date: 2024-09-01 Pat Name: FARIDEH HSU Department: Room: - Gender: Female Wheel Filler: : 1985 Requested By: AURELIO TSANLEY Order Number: [id number] Reading MD: AFIA WESTBROOK M.D. Measurements Intervals [place] Rate: 90 P: 35 MI: 162 QRS: 76 QRSD: 98 T: 54 QT: 377 QTc: 462 Interpretive Statements SINUS RHYTHM No previous ECG available for comparison Electronically Signed On 09-02-2024 13:04:38 EST by AFIA WESTBROOK M.D. Dictated By: AFIA WESTBROOK M.D. Signed By: 09/03/24 0917 DD/ 1039 TD/TT: Supervisor Slashing Department: [facility] ECG 12-LEADOrdered By: Radio logist Radiology on 09-03-2024 [facility] Work Phone: ALL BASIC METABOLIC PANELon 09-01-2024 Anion gap [Moles/Vol] 11.9 mmol/L [facility] Calcium [Mass/Vol] 8.9 mg/dL 8.5 - 10. 1 mg/dL [facility] Chloride [Moles/Vol] 104 mmol/L 98 - 107 mmol/L [facility] CO2 [Moles/Vol] 26.1 mmol/L 21.0 - 32.0 mmol/L [facility] Creatinine [Mass/Vol] 0.82 mg/dL 0.55 - 1.02 mg/dL [facility] GFR/1.73 sq M.predicted CKD-EPI (S/P/Bld) [Vol rate/Area] >60 >=60 mL/min/1.73m 2 [facility] Glucose [Mass/Vol] 88 mg/dL 74 - 106 mg/dL [facility] Potassium [Moles/Vol] 4 mmol/L 3.5 - 5.1 mmol/L [facility] Sodium [Moles/Vol] 138 mmol/L 136 - 145 mmol/L [facility] TBH EGFR-NON AF IRANIAN >60 >=60 mL/min/1.73m 2 [facility] Urea nitrogen [Mass/Vol] 16 mg/dL 7.0 - 18.0 mg/dL [facility] Urea nitrogen/Creatinine [Mass ratio] 19.5 mg/mg [facility] ECG 12-LEADon 09-01-2024 Radiology Study observation (narrative) [facility] Vitamin D+Metabolites [Mass/ Vol]on 07-14-2024 VITAMIN D 25 HYD TOT 31.6 ng/mL Normal 30-100 [facility] Comment on above: Result Comment: Vitamin D status 25 [place] Vitamin D Deficiency <20 ng/mL Insufficiency 20-29 ng/mL Sufficiency 30-100 ng/mL Toxicity >100 ng/mL NOTE: A pediatric reference range has not been established by the supervisor metal cans of this kit. The [place] [employer] recommends a Vitamin D level of = or >20ng/mL in infants and children. Performed By: #### 3 5365-6 #### [facility] ([id number]) [address], [address] [place] [address] Lab Reportson 02-21-2023 Lab Reports [id number]#1.00CD:127 Normal [facility] RAD - CT Reporton 02-21-2023 RAD - CT Report [id number] #1.00CD:127 Normal [facility] Physician Referralon 023 Physician Referral [id number] #1.00CD:127 Normal [facility] PAP ACOG PANEL 2: 30 to 65on 09-28-2022 . . Normal [facility] Comment on above: Result Comment: Perf ormed at: WB Performed By: #### 4 [id number] #### [facility] [address] [address] [address] Oneyda Rodriguez Age Gdln ACOG Testing 30-65 [facility] Comment on above: Performed By: #### 4 [id number] #### [facility] [address] [address] [address] Oneyda Rodriguez DIAGNOSIS: Comment [facility] Comment on above: Result Comment: NEGA TIVE FOR INTRAEPITHELIAL LESION OR MALIGNANCY. REACTIVE CELLULAR CHANGES AND/OR REPAIR ARE PRESENT. Performed at: WB Performed By: #### 4 [id number] #### [facility] [address] [place] [address] Dr. Oneyda Rodriguez Electronically signed by: Comment Normal [facility] Comment on above: Result Comment: Gila Lopez MD, Pathologist Performed at: WB Performed By: #### 4 [id number] #### [facility] [address] [place] [address] Dr. Oneyda Rodriguez HPV Aptima Negative Normal Negative [facility] Comment on above: Result Comment: This nucleic acid amplification test detects fourteen high-risk HPV types (16,18,31,33,35,39,45,51,52,56,58,59,66,68) without differentiation. Performed at: =G Performed By: #### 4 [id number] #### [facility] [address] [place] [address] Dr. Oneyda Rodriguez HPV Genotype Reflex Comment Normal [facility] Comment on above: Result Comment: Crit eria not met, HPV Genotype not performed. Performed at: WB Performed By: #### 4 [id number] #### [facility] [address] [place] [address] Dr. Oneyda Rodriguez Methodology: Comment Normal [facility] Comment on above: Result Comment: This liquid based ThinPrep(R) pap test was screened with the use of an image guided system. Performed at: WB Performed By: #### 4 [id number] #### [facility] [address] [place] [address] Dr. Oneyda Rodriguez Note: Comment Normal [facility] Comment on above: Result Comment: The Pap smear is a screening test designed to aid in the detection of premalignant and malignant conditions of the uterine cervix. It is not a diagnostic procedure and should not be used as the sole means of detecting cervical cancer. Both false-positive and false-negative reports do occur. . Performed at: WB Performed By: #### 4 [id number] #### [facility] [address] [place] [address] Dr. Oneyda Rodriguez Performed by: Comment Normal [facility] Comment on above: Result Comment: Katie Elliott, Supervisory Surgical Consultant (ASCP) Performed at: WB Performed By: #### 4 [id number] #### [facility] [address] [place] [address] Dr. Oneyda Rodriguez Specimen adequacy: Comment Normal [facility] Comment on above: Result Comment: Sati sfactory for evaluation. Endocervical and/or squamous metaplastic cells (endocervical component) are present. Performed at: WB Performed By: #### 4 [id number] #### [facility] [address] [place] [address] Dr. Oneyda Rodriguez CULTURE URINEon 06-11-2022 CULTURE [...] F Trimethoprim/Sulfame thoxazole <=20 S F Normal [facility] Comment on above: Performed By: #### U RCX #### [facility] [address] [place] [address] Dr. Oneyda Rodriguez CBC AUTO DIFFon 06-08-2022 BASO # 0.1 103/ul Normal 0.0-0.1 [facility] Comment on above: Performed By: #### C BC #### [facility] [address] [place] [address] Dr. Oneyda Rodriguez Basophils/100 WBC (Bld) 0.5 % Normal 0.2-2.0 [facility] Comment on above: Performed By: #### C BC #### [facility] [address] [place] [address] Dr. Oneyda Rodriguez EO # 0.2 103/ul Normal 0.0-0.7 [facility] Comment on above: Performed By: #### C BC #### [facility] [address] [place] [address] Dr. Oneyda Rodriguez Eosinophils/100 WBC (Bld) 1.6 % Normal 0.9-7.0 [facility] Comment on above: Performed By: #### C BC #### [facility] [address] [place] [address] Dr. Oneyda Rodriguez Erythrocyte distribution width (RBC) [Ratio] 13.4 % Normal 11.0-15.0 [facility] Comment on above: Performed By: #### C BC #### [facility] [address] [place] [address] Dr. Oneyda Rodriguez Hematocrit (Bld) [Volume fraction] 35.4 % Critically low 36.0-48.0 [facility] Comment on above: Performed By: #### C BC #### [facility] [address] [place] [address] Dr. Oneyda Rodriguez Hemoglobin (Bld) [Mass/Vol] 12.2 g/dL Normal 12.0-16.0 [facility] Comment on above: Performed By: #### C BC #### [facility] [address] [place] [address] Dr. Oneyda Rodriguez IG # 0.05 10e3/ul Critically high 0.00-0.03 [facility] Comment on above: Performed By: #### C BC #### [facility] [address] [place] [address] Dr. Oneyda Rodriguez IG % 0.4 % Normal 0.0-0.5 [facility] Comment on above: Performed By: #### C BC #### [facility] [address] [place] [address] Dr. Oneyda Rodriguez LYMPH # 2.2 103/ul Normal 1.2-3.8 [facility] Comment on above: Performed By: #### C BC #### [facility] [address] [place] [address] Dr. Oneyda Rodriguez Lymphocytes/100 WBC (Bld) 16.6 % Critically low 20.5-60.0 [facility] Comment on above: Performed By: #### C BC #### [facility] [address] [place] [address] Dr. Oneyda Rodriguez MANUAL DIFF REQ NO Normal [facility] Comment on above: Performed By: #### C BC #### [facility] [address] [place] [address] Dr. Oneyda Rodriguez MCH (RBC) [Entitic mass] 29.7 pg Normal 26.7-34.0 [facility] Comment on above: Performed By: #### C BC #### [facility] [address] [place] [address] Dr. Oneyda Rodriguez MCHC (RBC) [Mass/Vol] 34.5 g/dL Normal 29.9-35.2 [facility] Comment on above: Performed By: #### C BC #### [facility] [address] [place] [address] Dr. Oneyda Rodriguez MCV (RBC) [Entitic vol] 86.1 fL Normal 81.0-99.0 [facility] Comment on above: Performed By: #### C BC #### [facility] [address] [place] [address] Dr. Oneyda Rodriguez MONO # 0.6 103/ul Normal 0.3-0.8 [facility] Comment on above: Performed By: #### C BC #### [facility] [address] [place] [address] Dr. Oneyda Rodriguez Monocytes/100 WBC (Bld) 4.2 % Normal 1.7-12.0 [facility] Comment on above: Performed By: #### C BC #### [facility] [address] [place] [address] Dr. Oneyda Rodriguez NEUT # 10.3 103/ul Critically high 1.4-6.5 [facility] Comment on above: Performed By: #### C BC #### [facility] [address] [place] [address] Dr. Oneyda Rodriguez Neutrophils/100 WBC (Bld) 76.7 % Critically high 43.0-75.0 [facility] Comment on above: Performed By: #### C BC #### [facility] [address] [place] [address] Dr. Oneyda Rodriguez Platelet mean volume (Bld) [Entitic vol] 11.1 fL Normal 9.5-13.5 [facility] Comment on above: Performed By: #### C BC #### [facility] [address] [place] [address] Dr. Oneyda Rodriguez PLT 184 103/ul Normal 150-450 [facility] Comment on above: Performed By: #### C BC #### [facility] [address] [place] [address] Dr. Oneyda Rodriguez RBC 4.11 106/ul Critically low 4.20-5.40 [facility] Comment on above: Performed By: #### C BC #### [facility] [address] [place] [address] Dr. Oneyda Rodriguez WBC 13.4 103/ul Critically high 4.0-11.0 [facility] Comment on above: Performed By: #### C BC #### [facility] [address] [place] [address] Dr. Oneyda Rodriguez ER URINE PROFILEon 2 Bilirubin Ql (U) Negative Normal NEGATIVE [facility] Comment on above: Performed By: #### Lamonte TRAORE UMICRO #### [facility] [address] [place] [address] Dr. Oneyda Rodriguez Clarity (U) CLEAR Normal CLEAR [facility] Comment on above: Performed By: #### Lamonte TRAORE UMICRO #### [facility] [address] [place] [address] Dr. Oneyda Rodriguez Color (U) LT. YELLOW Normal YELLOW [facility] Comment on above: Performed By: #### KIKI LIICRO #### [facility] [address] [place] [address] Dr. Oneyda FREDERICK A micrscopic examination will be performed if indicated. Normal [facility] Comment on above: Performed By: #### KIKI LIICRO #### [facility] [address] [place] [address] Dr. Oneyda Rodriguez Glucose Ql (U) Negative Normal NEGATIVE [facility] Comment on above: Performed By: #### Lamonte BNOILLAR UMICRO #### [facility] [address] [address] [address] Oneyda Rodriguez Hemoglobin Ql (U) SMALL Abnormal NEGATIVE [facility] Comment on above: Performed By: #### E RUR, UMICRO #### [facility] [address] [address] [address] Oneyda Rodriguez Ketones Ql (U) Negative Normal NEGATIVE [facility] Comment on above: Performed By: #### Lamonte TRAORE UMICRO #### [facility] [address] [place] [address] Dr. Oneyda Rodriguez LEUKOCYTES SMALL Abnormal NEGATIVE [facility] Comment on above: Performed By: #### Lamonte TRAORE UMICRO #### [facility] [address] [place] [address] Dr. Oneyda Rodriguez Nitrite Ql (U) Positive Abnormal NEGATIVE [facility] Comment on above: Performed By: #### Lamonte TRAORE UMICRO #### [facility] [address] [place] [address] Dr. Oneyda Rodriguez pH (U) 6.0 [pH] Normal 5-9 [facility] Comment on above: Performed By: #### Lamonte TRAORE UMICRO #### [facility] [address] [place] [address] Dr. Oneyda Rodriguez SPEC GRAVITY 1.025 Normal 1.005-<=1.025 [facility] Comment on above: Performed By: #### Lamonte TRAORE UMICRO #### [facility] [address] [place] [address] Dr. Oneyda Rodriguez UA PROTEIN TRACE Normal NEGATIVE/ TRACE [facility] Comment on above: Performed By: #### Lamonte TRAORE UMICRO #### [facility] [address] [place] [address] Dr. Oneyda Rodriguez UR MICRO IND INDICATED Normal [facility] Comment on above: Performed By: #### Lamonte TRAORE UMICRO #### [facility] [address] [place] [address] Dr. Oneyda Rodriguez Urobilinogen Qn (U) 0.2 {Saul'U}/dL Normal 0.2 - 1. 0 [facility] Comment on above: Performed By: #### E BILL TRAORE #### [facility] [address] [place] [address] Dr. Oneyda Rodriguez PREG HCG QUALon 06-08-2022 , QUAL Negative Normal NEGATIVE [facility] Comment on above: Performed By: #### E HENRI TRAORERO #### [facility] [address] [place] [address] Dr. Oneyda Rodriguez PROF 14(COMP METB)on 022 Albumin [Mass/Vol] 3.6 g/dL Normal 3.4-5.0 [facility] Comment on above: Performed By: #### C MP #### [facility] [address] [place] [address] Dr. Oneyda Rodriguez Albumin/Globulin [Mass ratio] 1.1 {ratio} Normal [facility] Comment on above: Performed By: #### C MP #### [facility] [address] [place] [address] Dr. Oneyda Rodriguez ALP [Catalytic activity/Vol] 115 U/L Normal 46-116 [facility] Comment on above: Performed By: #### C MP #### [facility] [address] [place] [address] Dr. Oneyda Rodriguez ALT [Catalytic activity/Vol] 52 U/L Normal 14-59 [facility] Comment on above: Performed By: #### C MP #### [facility] [address] [place] [address] Dr. Oneyda Rodriguez Anion gap [Moles/Vol] 8.2 mmol/L Normal [facility] Comment on above: Performed By: #### C MP #### [facility] [address] [place] [address] Dr. Oneyda Rodriguez AST [Catalytic activity/Vol] 21 U/L Normal 15-37 [facility] Comment on above: Performed By: #### C MP #### [facility] [address] [address] [address] Oneyda Rodriguez Bilirubin [Mass/Vol] 0.1 mg/dL Critically low 0.2-1.0 [facility] Comment on above: Performed By: #### C MP #### [facility] [address] [address] [address] Oneyda Rodriguez Calcium [Mass/Vol] 8.4 mg/dL Critically low 8.5-10.1 [facility] Comment on above: Performed By: #### C MP #### [facility] [address] [place] [address] Dr. Oneyda Rodriguez Chloride [Moles/Vol] 105 mmol/L Normal 98-107 [facility] Comment on above: Performed By: #### C MP #### [facility] [address] [place] [address] Dr. Oneyda Rodriguez CO2 [Moles/Vol] 28.3 mmol/L Normal 21.0-32.0 [facility] Comment on above: Performed By: #### C MP #### [facility] [address] [place] [address] Dr. Oneyda Rodriguez Creatinine [Mass/Vol] 0.84 mg/dL Normal 0.55-1.02 [facility] Comment on above: Performed By: #### C MP #### [facility] [address] [place] [address] Dr. Oneyda Rodriguez EGFR-AF IRANIAN >60 Normal >=60 [facility] Comment on above: Performed By: #### C MP #### [facility] [address] [place] [address] Dr. Oneyda Rodriguez EGFR-NON AF IRANIAN >60 Normal >=60 [facility] Comment on above: Performed By: #### C MP #### [facility] [address] [place] [address] Dr. Oneyda Rodriguez Globulin (S) [Mass/Vol] 3.3 g/dL Normal [facility] Comment on above: Performed By: #### C MP #### [facility] [address] [place] [address] Dr. Oneyda Rodriguez Glucose [Mass/Vol] 85 mg/dL Normal 74-106 [facility] Comment on above: Performed By: #### C MP #### [facility] [address] [address] [address] Oneyda Rodriguez Potassium [Moles/Vol] 3.5 mmol/L Normal 3.5-5.1 [facility] Comment on above: Performed By: #### C MP #### [facility] [address] [address] [address] Oneyda Rodriguez Protein [Mass/Vol] 6.9 g/dL Normal 6.4-8.2 [facility] Comment on above: Performed By: #### C MP #### [facility] [address] [place] [address] Dr. Oneyda Rodriguez Sodium [Moles/Vol] 138 mmol/L Normal 136-145 [facility] Comment on above: Performed By: #### C MP #### [facility] [address] [place] [address] Dr. Oneyda Rodriguez Urea nitrogen [Mass/Vol] 14.0 mg/dL Normal 7.0-18.0 [facility] Comment on above: Performed By: #### C MP #### [facility] [address] [place] [address] Dr. Oneyda Rodriguez Urea nitrogen/Creatinine [Mass ratio] 16.7 mg/mg Normal [facility] Comment on above: Performed By: #### C MP #### [facility] [address] [place] [address] Dr. Oneyda Rodriguez URINE MICROSCOPIC ONLYon BACTERIA TRACE Abnormal NONE SEEN [facility] Comment on above: Performed By: #### BILL LI #### [facility] [address] [place] [address] Dr. Oneyda Rodriguez Bacteria identified Cx Nom (U) INDICATED Normal [facility] Comment on above: Performed By: #### HENRI LIRO #### [facility] [address] [place] [address] Dr. Oneyda Rodriguez CAST NONE SEEN Normal NONE SEEN [facility] Comment on above: Performed By: #### E RUR, UMICRO #### [facility] [address] [place] [address] Dr. Oneyda Rodriguez Crystals LM Nom (Urine sed) NONE SEEN Normal NONE SEEN [facility] Comment on above: Performed By: #### E RUR, UMICRO #### [facility] [address] [place] [address] Dr. Oneyda Rodriguez Epithelial cells LM Ql (Urine sed) RARE Normal NONE SEEN /RARE [facility] Comment on above: Performed By: #### E RUR, UMICRO #### [facility] [address] [place] [address] Dr. Oneyda Rodriguez MUCOUS NONE SEEN Normal NONE SEEN [facility] Comment on above: Performed By: #### E CHADR, UMICRO #### [facility] [address] [place] [address] Dr. Oneyda Rodriguez RBC NONE SEEN Abnormal 0-2 [facility] Comment on above: Performed By: #### E LEÓN, UMICRO #### [facility] [address] [place] [address] Dr. Oneyda Rodriguez WBC 2-5 Abnormal NONE SEEN [facility] Comment on above: Performed By: #### E LEÓN, UMICRO #### [facility] [address] [place] [address] Dr. Oneyda Rodriguez CBC AUTO DIFFon 11-23-2021 BASO # 0.1 103/ul Normal 0.0-0.1 [facility] Comment on above: Performed By: #### C BC #### [facility] [address] [place] [address] Dr. Oneyda Rodriguez Basophils/100 WBC (Bld) 0.5 % Normal 0.2-2.0 [facility] Comment on above: Performed By: #### C BC #### [facility] [address] [place] [address] Dr. Oneyda Rodriguez EO # 0.3 103/ul Normal 0.0-0.7 [facility] Comment on above: Performed By: #### C BC #### [facility] [address] [place] [address] Dr. Oneyda Rodriguez Eosinophils/100 WBC (Bld) 2.4 % Normal 0.9-7.0 [facility] Comment on above: Performed By: #### C BC #### [facility] [address] [place] [address] Dr. Oneyda Rodriguez Erythrocyte distribution width (RBC) [Ratio] 14.8 % Normal 11.0-15.0 [facility] Comment on above: Performed By: #### C BC #### [facility] [address] [place] [address] Dr. Oneyda Rodriguez Hematocrit (Bld) [Volume fraction] 36.0 % Normal 36.0-48.0 [facility] Comment on above: Performed By: #### C BC #### [facility] [address] [place] [address] Dr. Oneyda Rodriguez Hemoglobin (Bld) [Mass/Vol] 11.8 g/dL Critically low 12.0-16.0 [facility] Comment on above: Performed By: #### C BC #### [facility] [address] [place] [address] Dr. Oneyda Rodriguez IG # 0.05 10e3/ul Critically high 0.00-0.03 [facility] Comment on above: Performed By: #### C BC #### [facility] [address] [place] [address] Dr. Oneyda Rodriguez IG % 0.4 % Normal 0.0-0.5 [facility] Comment on above: Performed By: #### C BC #### [facility] [address] [place] [address] Dr. Oneyda Rodriguez LYMPH # 3.2 103/ul Normal 1.2-3.8 [facility] Comment on above: Performed By: #### C BC #### [facility] [address] [place] [address] Dr. Oneyda Rodriguez Lymphocytes/100 WBC (Bld) 24.3 % Normal 20.5-60.0 [facility] Comment on above: Performed By: #### C BC #### [facility] [address] [place] [address] Dr. Oneyda Rodriguez MANUAL DIFF REQ NO Normal [facility] Comment on above: Performed By: #### C BC #### [facility] [address] [place] [address] Dr. Oneyda Rodriguez MCH (RBC) [Entitic mass] 29.2 pg Normal 26.7-34.0 [facility] Comment on above: Performed By: #### C BC #### [facility] [address] [place] [address] Dr. Oneyda Rodriguez MCHC (RBC) [Mass/Vol] 32.8 g/dL Normal 29.9-35.2 [facility] Comment on above: Performed By: #### C BC #### [facility] [address] [place] [address] Dr. Oneyda Rodriguez MCV (RBC) [Entitic vol] 89.1 fL Normal 81.0-99.0 [facility] Comment on above: Performed By: #### C BC #### [facility] [address] [place] [address] Dr. Oneyda Rodriugez MONO # 0.6 103/ul Normal 0.3-0.8 [facility] Comment on above: Performed By: #### C BC #### [facility] [address] [place] [address] Dr. Oneyda Rodriguez Monocytes/100 WBC (Bld) 4.9 % Normal 1.7-12.0 [facility] Comment on above: Performed By: #### C BC #### [facility] [address] [place] [address] Dr. Oneyda Rodriguez NEUT # 8.8 103/ul Critically high 1.4-6.5 [facility] Comment on above: Performed By: #### C BC #### [facility] [address] [place] [address] Dr. Oneyda Rodriguez Neutrophils/100 WBC (Bld) 67.5 % Normal 43.0-75.0 [facility] Comment on above: Performed By: #### C BC #### [facility] [address] [place], [place] [address] Dr. Oneyda Rodriguez Platelet mean volume (Bld) [Entitic vol] 12.5 fL Normal 9.5-13.5 [facility] Comment on above: Performed By: #### C BC #### [facility] [address] [address] [address] Oneyda Rodriguez PLT 213 103/ul Normal 150-450 [facility] Comment on above: Performed By: #### C BC #### [facility] [address] [address] [address] Oneyda Rodriguez RBC 4.04 106/ul Critically low 4.20-5.40 [facility] Comment on above: Performed By: #### C BC #### [facility] [address] [address] [address] Oneyda Rodriguez WBC 13.1 103/ul Critically high 4.0-11.0 [facility] Comment on above: Performed By: #### C BC #### [facility] [address] [address] [address] Oneyda Rodriguez CRPon 11-23-2021 CRP [Mass/Vol] mg/L Normal <=1.0 [facility] Comment on above: Performed By: #### E BILL TRAORE #### [facility] [address] [place], [place] [address] HEAD WO CONon [...] by: SHARON MC Date: 2021-11-23 06:36 Normal [facility] LACTATE/LACTIC ACIDon 2021 Lactate [Moles/Vol] 0.7 mmol/L Normal 0.4-1.9 [facility] Comment on above: Performed By: #### L ACT #### [facility] [address] [place] [address] Dr. Oneyda Rodriguez PROF 14(COMP METB)on 022 Albumin [Mass/Vol] 3.9 g/dL Normal 3.4-5.0 [facility] Comment on above: Performed By: #### HENRI LIRO #### [facility] [address] [place] [address] Dr. Oneyda Rodriguez Albumin/Globulin [Mass ratio] 1.1 {ratio} Normal [facility] Comment on above: Performed By: #### HENRI LIRO #### [facility] [address] [place] [address] Dr. Oneyda Rodriguez ALP [Catalytic activity/Vol] 107 U/L Normal 46-116 [facility] Comment on above: Performed By: #### HENRI LIRO #### [facility] [address] [place] [address] Dr. Oneyda Rodriguez ALT [Catalytic activity/Vol] 62 U/L Critically high 14-59 [facility] Comment on above: Performed By: #### KIKI LIICRO #### [facility] [address] [place] [address] Dr. Oneyda Rodriguez Anion gap [Moles/Vol] 12.2 mmol/L Normal [facility] Comment on above: Performed By: #### Lamonte TRAORE UMICRO #### [facility] [address] [place] [address] Dr. Oneyda Rodriguez AST [Catalytic activity/Vol] 26 U/L Normal 15-37 [facility] Comment on above: Performed By: #### Lamonte TRAORE UMICRO #### [facility] [address] [place] [address] Dr. Oneyda Rodriguez Bilirubin [Mass/Vol] 0.3 mg/dL Normal 0.2-1.0 [facility] Comment on above: Performed By: #### BILL LI #### [facility] [address] [place] [address] Dr. Oneyda Rodriguez Calcium [Mass/Vol] 8.8 mg/dL Normal 8.5-10.1 [facility] Comment on above: Performed By: #### HENRI LIRO #### [facility] [address] [place] [address] Dr. Oneyda Rodriguez Chloride [Moles/Vol] 104 mmol/L Normal 98-107 [facility] Comment on above: Performed By: #### BILL LI #### [facility] [address] [place] [address] Dr. Oneyda Rodriguez CO2 [Moles/Vol] 28.9 mmol/L Normal 21.0-32.0 [facility] Comment on above: Performed By: #### BILL LI #### [facility] [address] [place] [address] Dr. Oneyda Rodriguez Creatinine [Mass/Vol] 0.73 mg/dL Normal 0.55-1.02 [facility] Comment on above: Performed By: #### BILL LI #### [facility] [address] [place] [address] Dr. Oneyda Rodriguez EGFR-AF IRANIAN >60 Normal >=60 [facility] Comment on above: Performed By: #### BILL LI #### [facility] [address] [place] [address] Dr. Oneyda Rodriguez EGFR-NON AF IRANIAN >60 Normal >=60 [facility] Comment on above: Performed By: #### HENRI LIRO #### [facility] [address] [place] [address] Dr. Oneyda Rodriguez Globulin (S) [Mass/Vol] 3.4 g/dL Normal [facility] Comment on above: Performed By: #### HENRI LIRO #### [facility] [address] [address] [address] Oneyda Rodriguez Glucose [Mass/Vol] 105 mg/dL Normal 74-106 [facility] Comment on above: Performed By: #### Lamonte TRAORE, UMICRO #### [facility] [address] [place] [address] Dr. Oneyda Rodriguez Potassium [Moles/Vol] 3.1 mmol/L Critically low 3.5-5.1 [facility] Comment on above: Performed By: #### Lamonte TRAORE, UMICRO #### [facility] [address] [place] [address] Dr. Oneyda Rodriguez Protein [Mass/Vol] 7.3 g/dL Normal 6.4-8.2 [facility] Comment on above: Performed By: #### Lamonte TRAORE, UMICRO #### [facility] [address] [place] [address] Dr. Oneyda Rodriguez Sodium [Moles/Vol] 142 mmol/L Normal 136-145 [facility] Comment on above: Performed By: #### Lamonte TRAORE, UMICRO #### [facility] [address] [place] [address] Dr. Oneyda Rodriguez Urea nitrogen [Mass/Vol] 12.0 mg/dL Normal 7.0-18.0 [facility] Comment on above: Performed By: #### Lamonte TRAORE, UMICRO #### [facility] [address] [place] [address] Dr. Oneyda Rodriguez Urea nitrogen/Creatinine [Mass ratio] 16.4 mg/mg Normal [facility] Comment on above: Performed By: #### Lamonte TRAORE, UMICRO #### [facility] [address] [place] [address] Dr. Oneyda Rodriguez TROPONIN, HIGH SENSITIVITYon 11-23-2021 HSTROP 4.8 pg/mL Normal 4.0-51.3 [facility] Comment on above: Result Comment: CUT- OFF POINTS HAVE BEEN ESTABLISHED BASED ON THE FOURTH UNIVERSAL DEFINITIONS OF MYOCARDIAL INFARCTION. THE UPPER REFERENCE LIMIT (URL) OF TROPONIN, DEFINED THE 99TH PERCENTILE OF cTnI DISTRIBUTION IN A REFERENCE POPULATION, HAS BEEN CONFIRMED THE DECISION THRESHOLD FOR KS DIAGNOSIS. Performed By: #### E BILL TRAORE #### [facility] [address] [address] [address] Oneyda Rodriguez HCV RNA,Quant,PCRon 11-02-19 HCV [...] Health Department Report Status FINAL 11/01/2020 Normal [facility] Comment on above: Performed By: #### H CVQ #### [address] [place], [place] [id number] Credit Card Analyst: Valdo Diaz MD [address] [place] [phone] Credit Card Analyst: Mateo Mir MD CBCon 10-27-2020 Erythrocyte distribution width (RBC) [Ratio] 14.4 % Normal 11.8-14.4 [facility] Comment on above: Performed By: #### I PF, CBC, CP, HCG #### [facility] [address] [place] [address] Credit Card Analyst: Mateo Mir MD #### HIVCMB, PHEP #### [address] [place], [place] [id number] Credit Card Analyst: Valdo Diaz MD Hematocrit (Bld) [Volume fraction] 38.8 % Normal 36.3-47.1 [facility] Comment on above: Performed By: #### I PF, CBC, CP, HCG #### [address] [place] [address] Credit Card Analyst: Mateo Mir MD #### HIVCMB, PHEP #### [address] [address] [place], [place] [phone] Credit Card Analyst: Valdo Diaz MD Hemoglobin (Bld) [Mass/Vol] 12.4 g/dL Normal 11.9-15.1 [facility] Comment on above: Performed By: #### I PF, CBC, CP, HCG #### [address] [place] [address] Credit Card Analyst: Mateo Mir MD #### HIVCMB, PHEP #### [address] [phone] Credit Card Analyst: Valdo Diaz MD MCH (RBC) [Entitic mass] 28.0 pg Normal 25.2-33.5 [facility] Comment on above: Performed By: #### I PF, CBC, CP, HCG #### [address] [place] [address] Credit Card Analyst: Mateo Mir MD #### HIVCMB, PHEP #### [address] [id number] Credit Card Analyst: Valdo Diaz MD MCHC (RBC) [Mass/Vol] 32.0 g/dL Normal 28.4-34.8 [facility] Comment on above: Performed By: #### I PF, CBC, CP, HCG #### [address] [place] [address] Credit Card Analyst: Mateo Mir MD #### HIVCMB, PHEP #### [address] [address] [place], [place] [phone] Credit Card Analyst: Valdo Diaz MD MCV (RBC) [Entitic vol] 87.6 fL Normal 82.6-102.9 [facility] Comment on above: Performed By: #### I PF, CBC, CP, HCG #### [facility] [address] [place] [address] Credit Card Analyst: Mateo Mir MD #### HIVCMB, PHEP #### [address] [phone] Credit Card Analyst: Valdo Diaz MD NRBC Automated 0.0 per 100 WBC Normal 0.0 [facility] Comment on above: Performed By: #### I PF, CBC, CP, HCG #### [facility] [address] [place] [address] [place] [address] Credit Card Analyst: Mateo Mir MD #### HIVCMB, PHEP #### [address] [phone] Credit Card Analyst: Valdo Diaz MD Platelet Count See Reflexed IPF Result Normal 138-453 [facility] Comment on above: Performed By: #### I PF, CBC, CP, HCG #### [address] [place] [address] Credit Card Analyst: Mateo Mir MD #### HIVCMB, PHEP #### [address] [id number] Credit Card Analyst: Valdo Diaz MD RBC (Bld) [#/Vol] 4.43 10*6/uL Normal 3.95-5.11 [facility] Comment on above: Performed By: #### I PF, CBC, CP, HCG #### [facility] [address] [place] [address] [place] [address] Credit Card Analyst: Mateo Mir MD #### HIVCMB, PHEP #### [address] [phone] Credit Card Analyst: Valdo Diaz MD WBC (Bld) [#/Vol] 8.2 10*3/uL Normal 3.5-11.3 [facility] Comment on above: Performed By: #### I PF, CBC, CP, HCG #### [facility] [address] [place] [address] Credit Card Analyst: Mateo Mir MD #### HIVCMB, PHEP #### [facility] [employer] [facility] [place], [place] [phone] Credit Card Analyst: Valdo Diaz MD MPV NOT REPORTED Normal 8.1-13.5 [facility] Comment on above: Performed By: #### I PF, CBC, CP, HCG #### [facility] [address] [place] [address] Credit Card Analyst: Mateo Mir MD #### HIVCMB, PHEP #### [address] [place] [address] Credit Card Analyst: Valdo Diaz MD CBCOrdered By: Diego Hernandez on 10-27-2020 Hematocrit (Bld) [Volume fraction] 38.8 % 36.3 - 47.1 % [employer] Phone: Hemoglobin.gastroint estinal spec 1 Ql (Stl) 12.4 g/dL 11.9 - 15.1 g/dL [employer] Phone: MCH (RBC) [Entitic mass] 28.0 pg 25.2 - 33.5 pg [employer] Phone: MCHC (RBC) [Mass/Vol] 32.0 g/dL 28.4 - 34.8 g/dL [employer] Phone: MCV (RBC) [Entitic vol] 87.6 fL 82.6 - 102.9 fL [employer] Phone: NRBC Automated 0.0 0.0 per 100 WBC [employer] Phone: Platelet distribution width (Bld) [Ratio] 14.4 % 11.8 - 14.4 % [employer] Phone: Platelet mean volume (Bld) [Entitic vol] NOT REPORTED 8.1 - 13.5 fL [employer] Phone: Platelets (Bld) [#/Vol] See Reflexed IPF Result [employer] Phone: RBC (Bld) [#/Vol] 4.43 10*6/uL 3.95 - 5.1 1 m/uL [facility] Phone: WBC (Bld) [#/Vol] 8.2 10*3/uL [facility] Phone: Comp Metabolic Profon 2020 (cont.) Normal [facility] Comment on above: Result Comment: Aver age GFR for 30-39 years old: 107 mL/min/1.73sq m Chronic Kidney Disease: <60 mL/min/1.73sq m Kidney failure: <15 mL/min/1.73sq m eGFR calculated using average adult body mass. Additional eGFR calculator available at: http://www.[employer]/multiple_crcl_2011.htm Performed By: #### I PF, CBC, CP, HCG #### [address] [place] [address] Credit Card Analyst: Mateo Mir MD #### HIVCMB, PHEP #### [facility] [employer] [address] [place] [phone] Credit Card Analyst: Valdo Diaz MD Albumin [Mass/Vol] 3.6 g/dL Normal 3.5-5.2 [facility] Comment on above: Performed By: #### I PF, CBC, CP, HCG #### [address] [place] [address] Credit Card Analyst: Mateo Mir MD #### HIVCMShavon, PHEP #### [facility] [employer] [facility] [place] [address] Credit Card Analyst: Valdo Diaz MD Albumin/Glob Ratio 1.2 Normal 1.0-2.5 [facility] Comment on above: Performed By: #### I PF, CBC, CP, HCG #### [facility] [address] [place] [address] Dr. [place], [place] [phone] Credit Card Analyst: Mateo Mir MD #### HIVCMB, PHEP #### [address] [address] Credit Card Analyst: Valdo Diaz MD Alkaline Phos 174 U/L High 35-104 [facility] Comment on above: Performed By: #### I PF, CBC, CP, HCG #### [facility] [address] [place] [address] Dr. [place], [place] [phone] Credit Card Analyst: Mateo Mir MD #### HIVCMShavon, PHEP #### [address] [address] Credit Card Analyst: Valdo Diaz MD ALT [Catalytic activity/Vol] 65 U/L High 5-33 [facility] Comment on above: Performed By: #### I PF, CBC, CP, HCG #### [address] [place], [place] [phone] Credit Card Analyst: Mateo Mir MD #### HIVCMShavon, PHEP #### [address] [address] Credit Card Analyst: Valdo Diaz MD Anion gap [Moles/Vol] 8 mmol/L Low 9-17 [facility] Comment on above: Performed By: #### I PF, CBC, CP, HCG #### [facility] [address] [place] [address] Dr. [place], [place] [phone] Credit Card Analyst: Mateo Mir MD #### HIVCMB, PHEP #### [address] [phone] Credit Card Analyst: Valdo Diaz MD AST [Catalytic activity/Vol] 42 U/L High <32 [facility] Comment on above: Performed By: #### I PF, CBC, CP, HCG #### [facility] [address] [place] [address] Dr. [place], [place] [phone] Credit Card Analyst: Mateo Mir MD #### HIVCMB, PHEP #### [address] [phone] Credit Card Analyst: Valdo Diaz MD Bilirubin [Mass/Vol] 0.20 mg/dL Low 0.3-1.2 [facility] Comment on above: Performed By: #### I PF, CBC, CP, HCG #### [address] [place] [phone] Credit Card Analyst: Mateo Mir MD #### HIVCMB, PHEP #### [address] [phone] Credit Card Analyst: Valdo Diaz MD BUN/CRE Ratio 12 Normal 9-20 [facility] Comment on above: Performed By: #### I PF, CBC, CP, HCG #### [address] [place] [address] Credit Card Analyst: Mateo Mir MD #### HIVCMB, PHEP #### [address] [id number] Credit Card Analyst: Valdo Diaz MD Calcium [Mass/Vol] 9.2 mg/dL Normal 8.6-10.4 [facility] Comment on above: Performed By: #### I PF, CBC, CP, HCG #### [address] [place], [place] [id number] Credit Card Analyst: Mateo Mir MD #### HIVCMB, PHEP #### [address] [phone] Credit Card Analyst: Valdo Diaz MD Chloride [Moles/Vol] 107 mmol/L Normal 98-107 [facility] Comment on above: Performed By: #### I PF, CBC, CP, HCG #### [facility] [address] [place] [address] Dr. [place], [place] [address] Credit Card Analyst: Mateo Mir MD #### HIVCMB, PHEP #### [address] [phone] Credit Card Analyst: Valdo Diaz MD CO2 [Moles/Vol] 26 mmol/L Normal 20-31 [facility] Comment on above: Performed By: #### I PF, CBC, CP, HCG #### [facility] [address] [place] [address] [place] [address] Credit Card Analyst: Mateo Mir MD #### HIVCMB, PHEP #### [address] [id number] Credit Card Analyst: Valdo Diaz MD Creatinine [Mass/Vol] 0.67 mg/dL Normal 0.50-0.90 [facility] Comment on above: Performed By: #### I PF, CBC, CP, HCG #### [facility] [address] [place] [address] Dr. [place] [phone] Credit Card Analyst: Mateo Mir MD #### HIVCMB, PHEP #### [address] [phone] Credit Card Analyst: Valdo Diaz MD GFR, Amer >60 Normal >60 [facility] Comment on above: Performed By: #### I PF, CBC, CP, HCG #### [facility] [address] [place] [address] Dr. [place], [place] [phone] Credit Card Analyst: Mateo Mir MD #### HIVCMB, PHEP #### [address] [phone] Credit Card Analyst: Valdo Diaz MD GFR,non Amer >60 Normal >60 [facility] Comment on above: Performed By: #### I PF, CBC, CP, HCG #### [facility] [address] [place] [address] Dr. [place], [place] [phone] Credit Card Analyst: Mateo Mir MD #### HIVCMB, PHEP #### [address] [phone] Credit Card Analyst: Valdo Diaz MD Glucose [Mass/Vol] 99 mg/dL Normal 70-99 [facility] Comment on above: Performed By: #### I PF, CBC, CP, HCG #### [address] [place] [address] Credit Card Analyst: Mateo Mir MD #### HIVCMB, PHEP #### [address] [id number] Credit Card Analyst: Valdo Diaz MD Potassium [Moles/Vol] 4.2 mmol/L Normal 3.7-5.3 [facility] Comment on above: Performed By: #### I PF, CBC, CP, HCG #### [address] [place] [address] Credit Card Analyst: Mateo Mir MD #### HIVCMB, PHEP #### [address] [phone] Credit Card Analyst: Valdo Diaz MD Protein [Mass/Vol] 6.6 g/dL Normal 6.4-8.3 [facility] Comment on above: Performed By: #### I PF, CBC, CP, HCG #### [address] [place] [address] Credit Card Analyst: Mateo Mir MD #### HIVCMB, PHEP #### [address] [phone] Credit Card Analyst: Valdo Diaz MD Sodium [Moles/Vol] 141 mmol/L Normal 135-144 [facility] Comment on above: Performed By: #### I PF, CBC, CP, HCG #### [address] [place], [place] [phone] Credit Card Analyst: Mateo Mir MD #### HIVCMB, PHEP #### [facility] [address] [place], [place] [phone] Credit Card Analyst: Valdo Diaz MD Staging: Normal [facility] Comment on above: Result Comment: Stag e 1: Some kidney damage normal GFR Stage 2: Mild kidney damage GFR 60-89 Stage 3: Moderate kidney damage GFR 30-59 Stage 4: Severe kidney damage GFR 15-29 Stage 5: Severe kidney damage GFR <15 ESRD - chronic treatment by dialysis or transplant Performed By: #### I PF, CBC, CP, HCG #### [address] [address] [place], [place] [id number] Credit Card Analyst: Mateo Mir MD #### HIVCMB, PHEP #### [facility] [address] [place], [place] [id number] Credit Card Analyst: Valdo Diaz MD Urea nitrogen [Mass/Vol] 8 mg/dL Normal 6-20 [facility] Comment on above: Performed By: #### I PF, CBC, CP, HCG #### [address] [place], [place] [id number] Credit Card Analyst: Mateo Mir MD #### HIVCMB, PHEP #### [facility] [address] [place], [place] [id number] Credit Card Analyst: Valdo Diaz MD Comprehensive Metabolic Pane lOrdered By: Diego Hernandez on 10-27-2020 Albumin [Mass/Vol] 3.6 g/dL 3.5 - 5.2 g/dL [facility] [employer] Work Phone: Albumin/Globulin [Mass ratio] 1.2 {ratio} [employer] Phone: ALP (Bld) [Catalytic activity/Vol] 174 U/L High 35 - 104 U/L [employer] Phone: ALT [Catalytic activity/Vol] 65 U/L High 5 - 33 U/L [employer] Phone: Anion gap [Moles/Vol] 8 mmol/L Low 9 - 17 mmol/L [employer] Phone: AST [Catalytic activity/Vol] 42 U/L High <32 [employer] Phone: Bilirubin [Mass/Vol] 0.20 mg/dL Low 0.3 - 1.2 mg/dL [employer] Phone: Calcium [Mass/Vol] 9.2 mg/dL 8.6 - 10. 4 mg/dL [employer] Phone: Chloride [Moles/Vol] 107 mmol/L 98 - 107 mmol/L [employer] Phone: CO2 [Moles/Vol] 26 mmol/L 20 - 31 mmol/L [employer] Phone: Creatinine [Mass/Vol] 0.67 mg/dL 0.50 - 0.90 mg/dL [employer] Phone: Free PSA/Total PSA [Mass fraction] 6.6 g/dL 6.4 - 8.3 g/dL [employer] Phone: GFR >60 >60 mL/min [employer] Phone: GFR Non- >60 >60 mL/min [employer] Phone: Glucose [Mass/Vol] 99 mg/dL 70 - 99 mg/dL [facility] [employer] Phone: Interpretation and review of laboratory results Abnormal [employer] Phone: Potassium [Moles/Vol] 4.2 mmol/L 3.7 - 5.3 mmol/L [employer] Phone: Sodium [Moles/Vol] 141 mmol/L 135 - 144 mmol/L [employer] Phone: Urea nitrogen (BldV) [Mass/Vol] 8 mg/dL 6 - 20 mg/dL [employer] Phone: Urea nitrogen/Creatinine (Bld) [Mass ratio] 12 [employer] Phone: HCG Qualitative, SerumOrdere d By: Diego Hernandez on 10-27-2020 hCG Qual Negative NEGATIVE [employer] Phone: Comment on above: Specimens with hCG l evels near the threshold of the test (25 mIU/mL) may give a negative or indeterminate result. In such cases, another test should be performed with a new specimen in 48-72 hours. If early is suspected clinically in this setting, correlation with quantitative serum b-hCG level is suggested. [employer] has confirmed the use of plasma for this test. This has not been cleared or approved by the U.S. Food and Drug Administration. The FDA has determined that such clearance is not necessary. HCG Screen, Bloodon 10-28-19 HCG Screen, Blood Negative Normal [facility] Comment on above: Result Comment: Spec imens with hCG levels near the threshold of the test (25 mIU/mL) may give a negative or indeterminate result. In such cases, another test should be performed with a new specimen in 48-72 hours. If early is suspected clinically in this setting, correlation with quantitative serum b-hCG level is suggested. [employer] has confirmed the use of plasma for this test. This has not been cleared or approved by the U.S. Food and Drug Administration. The FDA has determined that such clearance is not necessary. Performed By: #### I PF, HCG, CP, CBC #### [facility] [address] [place] [address] Credit Card Analyst: Fidel Hallman MD #### HIVCMB, PHEP #### [facility] [address] [place] [address] Credit Card Analyst: Valdo Diaz MD HIV Ag/Abon 10-27-2020 HIV Ag/Ab Non-Reactive Normal [facility] Comment on above: Result Comment: No l aboratory evidence of HIV infection. If acute HIV infection is suspected, consider testing for HIV-1 RNA. Performed By: #### I PF, HCG, CP, CBC #### [address] [place], [place] [phone] Credit Card Analyst: Fidel Hallman MD #### HIVCMB, PHEP #### [address] [address] Credit Card Analyst: Valdo Diaz MD HIV ScreenOrdered By: Diego Hernandez on 10-27-2020 HIV Ag/Ab Non-Reactive NONREACTIVE [facility] Work Phone: Comment on above: No laboratory eviden ce of HIV infection. If acute HIV infection is suspected, consider testing for HIV-1 RNA. Hepatitis Acute [facility] 10-27 Hep A Ab,IgM Non-Reactive Normal [facility] Comment on above: Performed By: #### I PF, HCG, CP, CBC #### [address] [place], [place] [id number] Credit Card Analyst: Fidel Hallman MD #### HIVCMB, PHEP #### [address] [address] Credit Card Analyst: Valdo Diaz MD Hep B Core Ab,IgM Non-Reactive Normal [facility] Comment on above: Performed By: #### I PF, HCG, CP, CBC #### [address] [place], [place] [id number] Credit Card Analyst: Fidel Hallman MD #### HIVCMB, PHEP #### [address] [address] Credit Card Analyst: Valdo Diaz MD Hep B Surf Ag Non-Reactive Normal NR [facility] Comment on above: Performed By: #### I PF, HCG, CP, CBC #### [facility] [address] [place] [address] [place], [place] [phone] Credit Card Analyst: Fidel Hallman MD #### HIVCMB, PHEP #### [address] [address] Credit Card Analyst: Valdo Diaz MD Hep C Ab Reactive Abnormal [facility] Comment on above: Result Comment: The [...] #### I PF, HCG, CP, CBC #### [address] [place] [id number] Credit Card Analyst: Fidel Hallman MD #### HIVCMB, PHEP #### [address] [address] Credit Card Analyst: Valdo Diaz MD Hepatitis Panel, AcuteOrdere d By: Diego Hernandez on 10-27-2020 HAV IgM IA Qn (S) Non-Reactive NONREACTIVE [facility] Work Phone: Hep B Core Ab, IgM Non-Reactive NONREACTIVE [facility] Work Phone: Hepatitis B Surface Ag Non-Reactive NONREACTIVE [facility] Work Phone: Hepatitis C Ab Reactive Abnormal NONREACTIVE [facility] Work Phone: Comment on above: The [...] Interpretation and review of laboratory results Abnormal [employer] Phone: Immature Platelet FractionOr dered By: Diego Hernandez on 10-27-2020 Interpretation and review of laboratory results Abnormal [employer] Phone: Platelet, Fluorescence 123 Low [employer] Phone: Platelet, Immature Fraction 15.9 % High 1.1 - 10.3 % [employer] Phone: Laboratory - Chemistry and C hemistry - challengeOrdered By: Diego Hernandez on 10-27-2020 GFR/1.73 sq M.predicted MDRD (S/P/Bld) [Vol rate/Area] [employer] Phone: Comment on above: Average GFR for 30-3 9 years old: 107 mL/min/1.73sq m Chronic Kidney Disease: <60 mL/min/1.73sq m Kidney failure: <15 mL/min/1.73sq m eGFR calculated using average adult body mass. Additional eGFR calculator available at: http://www.[employer]/multiple_crcl_2012.htm Stage 1: Some kidney damage normal GFR Stage 2: Mild kidney damage GFR 60-89 Stage 3: Moderate kidney damage GFR 30-59 Stage 4: Severe kidney damage GFR 15-29 Stage 5: Severe kidney damage GFR <15 ESRD - chronic treatment by dialysis or transplant PLT, Immature Fract.on 10-27 Platelet, Fluoresc. 123 k/uL Low 138-453 [facility] Comment on above: Performed By: #### I PF, CBC, CP, HCG #### [facility] [address] [place] [address] Credit Card Analyst: Mateo Mir MD #### HIVCMB, PHEP #### [facility] [employer] [facility] [place] [address] Credit Card Analyst: Valdo Diaz MD PLT, Immature Fract. 15.9 % High 1.1-10.3 [facility] Comment on above: Performed By: #### I PF, CBC, CP, HCG #### [facility] [address] [place] [address] Credit Card Analyst: Mateo Mir MD #### HIVCMB, PHEP #### [place] [address] [place], [place] [id number] Credit Card Analyst: Valdo Diaz MD HCV RNA,Quant,PCRon 05-13-20 20 [...] Health Department Report Status FINAL 05/13/2020 Normal [facility] Comment on above: Performed By: #### I PF, HCG, CP, CBC #### [facility] [address] [place] [address] [place] [address] Credit Card Analyst: Fidel Hallman MD #### HIVCMB, PHEP #### [facility] [address] [place], [place] [id number] Credit Card Analyst: Valdo Diaz MD CBCon 05-12-2020 Erythrocyte distribution width (RBC) [Ratio] 14.7 % High 11.8-14.4 [facility] Comment on above: Performed By: #### I PF, HCG, CP, CBC #### [facility] [address] [place] [address] Credit Card Analyst: Fidel Hallman MD #### HIVCMB, PHEP #### [place] [address] [place], [place] [id number] Credit Card Analyst: Valdo Diaz MD Hematocrit (Bld) [Volume fraction] 39.7 % Normal 36.3-47.1 [facility] Comment on above: Performed By: #### I PF, HCG, CP, CBC #### [address] [place] [id number] Credit Card Analyst: Fidel Hallman MD #### HIVCMB, PHEP #### [address] [id number] Credit Card Analyst: Valdo Diaz MD Hemoglobin (Bld) [Mass/Vol] 12.2 g/dL Normal 11.9-15.1 [facility] Comment on above: Performed By: #### I PF, HCG, CP, CBC #### [address] [place] [id number] Credit Card Analyst: Fidel Hallman MD #### HIVCMB, PHEP #### [address] [id number] Credit Card Analyst: Valdo Diaz MD MCH (RBC) [Entitic mass] 27.6 pg Normal 25.2-33.5 [facility] Comment on above: Performed By: #### I PF, HCG, CP, CBC #### [address] [place] [id number] Credit Card Analyst: Fidel Hallman MD #### HIVCMB, PHEP #### [address] [id number] Credit Card Analyst: Valdo Diaz MD MCHC (RBC) [Mass/Vol] 30.7 g/dL Normal 28.4-34.8 [facility] Comment on above: Performed By: #### I PF, HCG, CP, CBC #### [address] [place] [id number] Credit Card Analyst: Fidel Hallman MD #### HIVCMB, PHEP #### [address] [id number] Credit Card Analyst: Valdo Diaz MD MCV (RBC) [Entitic vol] 89.8 fL Normal 82.6-102.9 [facility] Comment on above: Performed By: #### I PF, HCG, CP, CBC #### [facility] [address] [place] [address] [address]. [place] [phone] Credit Card Analyst: Fidel Hallman MD #### HIVCMB, PHEP #### [place] [id number] Credit Card Analyst: Valdo Diaz MD NRBC Automated 0.0 per 100 WBC Normal 0.0 [facility] Comment on above: Performed By: #### I PF, HCG, CP, CBC #### [address] [place] [address] Credit Card Analyst: Fidel Hallman MD #### HIVCMB, PHEP #### [place] [address] Credit Card Analyst: Valdo Diaz MD Platelet Count See Reflexed IPF Result Normal 138-453 [facility] Comment on above: Performed By: #### I PF, HCG, CP, CBC #### [address] [place] [address] Credit Card Analyst: Fidel Hallman MD #### HIVCMB, PHEP #### [place] [address] Credit Card Analyst: Valdo Diaz MD RBC (Bld) [#/Vol] 4.42 10*6/uL Normal 3.95-5.11 [facility] Comment on above: Performed By: #### I PF, HCG, CP, CBC #### [address] [place] [address] Credit Card Analyst: Fidel Hallman MD #### HIVCMB, PHEP #### [facility] [address] [place] [address] Credit Card Analyst: Valdo Diaz MD WBC (Bld) [#/Vol] 8.9 10*3/uL Normal 3.5-11.3 [facility] Comment on above: Performed By: #### I PF, HCG, CP, CBC #### [facility] [address] [place] [address] [employer] Card Analyst: Fidel Hallman MD #### HIVCMB, PHEP #### [address] [address] [place] [address] Credit Card Analyst: Valdo Diaz MD MPV NOT REPORTED Normal 8.1-13.5 [facility] Comment on above: Performed By: #### I PF, HCG, CP, CBC #### [address] [address] Credit Card Analyst: Fidel Hallman MD #### HIVCMB, PHEP #### [place] [address] [place] [address] Credit Card Analyst: Valdo Diaz MD Erythrocyte distribution width (RBC) [Ratio] 14.7 % High 11.8 - 14.4 % [place] Hematocrit (Bld) [Volume fraction] 39.7 % 36.3 - 47.1 % [place] Hemoglobin (Bld) [Mass/Vol] 12.2 g/dL 11.9 - 15.1 g/dL [place] Interpretation and review of laboratory results Abnormal [place] MCH (RBC) [Entitic mass] 27.6 pg 25.2 - 33.5 pg [place] MCHC (RBC) [Mass/Vol] 30.7 g/dL 28.4 - 34.8 g/dL [place] MCV (RBC) [Entitic vol] 89.8 fL 82.6 - 102.9 fL [place] Platelet mean volume (Bld) [Entitic vol] NOT REPORTED 8.1 - 13.5 fL [place] Platelets (Bld) [#/Vol] See Reflexed IPF Result [place] RBC (Bld) [#/Vol] 4.42 10*6/uL 3.95 - 5.1 1 m/uL [place] WBC (Bld) [#/Vol] 0.0 10*3/uL 0.0 per 100 WBC M [place] WBC (Bld) [#/Vol] 8.9 10*3/uL [place] Comp Metabolic Profon 2019 (cont.) Normal [facility] Comment on above: Result Comment: Aver age GFR for 30-39 years old: 107 mL/min/1.73sq m Chronic Kidney Disease: <60 mL/min/1.73sq m Kidney failure: <15 mL/min/1.73sq m eGFR calculated using average adult body mass. Additional eGFR calculator available at: http://www.[employer]/multiple_crcl_2012.htm Performed By: #### I PF, HCG, CP, CBC #### [address] [place] [address] Credit Card Analyst: Fidel Hallman MD #### HIVCMB, PHEP #### [address] [address] Credit Card Analyst: Valdo Diaz MD Albumin [Mass/Vol] 3.9 g/dL Normal 3.5-5.2 [facility] Comment on above: Performed By: #### I PF, HCG, CP, CBC #### [facility] [address] [place] [address] Credit Card Analyst: Fidel Hallman MD #### HIVCMB, PHEP #### [place] [place], [place] [id number] Credit Card Analyst: Valdo Diaz MD Albumin/Glob Ratio 1.3 Normal 1.0-2.5 [facility] Comment on above: Performed By: #### I PF, HCG, CP, CBC #### [facility] [address] [place] [id number] Credit Card Analyst: Fidel Hallman MD #### HIVCMB, PHEP #### [address] [id number] Credit Card Analyst: Valdo Diaz MD Alkaline Phos 122 U/L High 35-104 [facility] Comment on above: Performed By: #### I PF, HCG, CP, CBC #### [facility] [address] [place] [phone] Credit Card Analyst: Fidel Hallman MD #### HIVCMB, PHEP #### [address] [id number] Credit Card Analyst: Valdo Diaz MD ALT [Catalytic activity/Vol] 98 U/L High 5-33 [facility] Comment on above: Performed By: #### I PF, HCG, CP, CBC #### [facility] [address] [place] [id number] Credit Card Analyst: Fidel Hallman MD #### HIVCMB, PHEP #### [address] [address] Credit Card Analyst: Valdo Diaz MD Anion gap [Moles/Vol] 11 mmol/L Normal 9-17 [facility] Comment on above: Performed By: #### I PF, HCG, CP, CBC #### [facility] [address] [place] [address] Credit Card Analyst: Fidel Hallman MD #### HIVCMB, PHEP #### [address] [address] Credit Card Analyst: Valdo Diaz MD AST [Catalytic activity/Vol] 51 U/L High <32 [facility] Comment on above: Performed By: #### I PF, HCG, CP, CBC #### [facility] [address] [place] [address] Credit Card Analyst: Fidel Hallman MD #### HIVCMB, PHEP #### [address] [id number] Credit Card Analyst: Valdo Diaz MD Bilirubin [Mass/Vol] 0.20 mg/dL Low 0.3-1.2 [facility] Comment on above: Performed By: #### I PF, HCG, CP, CBC #### [facility] [address] [place] [address] Credit Card Analyst: Fidel Hallman MD #### HIVCMB, PHEP #### [address] [phone] Credit Card Analyst: Valdo Diaz MD BUN/CRE Ratio 14 Normal 9-20 [facility] Comment on above: Performed By: #### I PF, HCG, CP, CBC #### [facility] [address] [place] [address] Credit Card Analyst: Fidel Hallman MD #### HIVCMB, PHEP #### [address] [id number] Credit Card Analyst: Valdo Diaz MD Calcium [Mass/Vol] 9.3 mg/dL Normal 8.6-10.4 [facility] Comment on above: Performed By: #### I PF, HCG, CP, CBC #### [facility] [address] [place] [address] Credit Card Analyst: Fidel Hallman MD #### HIVCMB, PHEP #### [address] [id number] Credit Card Analyst: Valdo Diaz MD Chloride [Moles/Vol] 109 mmol/L High 98-107 [facility] Comment on above: Performed By: #### I PF, HCG, CP, CBC #### [facility] [address] [place], [place] [phone] Credit Card Analyst: Fidel Hallman MD #### HIVCMB, PHEP #### [address] [phone] Credit Card Analyst: Valdo Diaz MD CO2 [Moles/Vol] 23 mmol/L Normal 20-31 [facility] Comment on above: Performed By: #### I PF, HCG, CP, CBC #### [facility] [address] [place], [place] [id number] Credit Card Analyst: Fidel Hallman MD #### HIVCMB, PHEP #### [address] [id number] Credit Card Analyst: Valdo Diaz MD Creatinine [Mass/Vol] 0.69 mg/dL Normal 0.50-0.90 [facility] Comment on above: Performed By: #### I PF, HCG, CP, CBC #### [facility] [address] [place], [place] 1432683 Credit Card Analyst: Fidel Hallman MD #### HIVCMB, PHEP #### [address] [address] Credit Card Analyst: Valdo Diaz MD GFR, Amer >60 Normal >60 [facility] Comment on above: Performed By: #### I PF, HCG, CP, CBC #### [facility] [address] [place], [place] 1536183 Credit Card Analyst: Fidel Hallman MD #### HIVCMB, PHEP #### [address] [address] Credit Card Analyst: Valdo Diaz MD GFR,non Amer >60 Normal >60 [facility] Comment on above: Performed By: #### I PF, HCG, CP, CBC #### [facility] [address] [place], [place] [id number] Credit Card Analyst: Fidel Hallman MD #### HIVCMB, PHEP #### [address] [address] [place], [place] 8674408 Credit Card Analyst: Valdo Diaz MD Glucose [Mass/Vol] 154 mg/dL High 70-99 [facility] Comment on above: Performed By: #### I PF, HCG, CP, CBC #### [facility] [address] [place], [place] [id number] Credit Card Analyst: Fidel Hallman MD #### HIVCMB, PHEP #### [address] [id number] Credit Card Analyst: Valdo Diaz MD Potassium [Moles/Vol] 3.9 mmol/L Normal 3.7-5.3 [facility] Comment on above: Performed By: #### I PF, HCG, CP, CBC #### [facility] [address] [place], [place] [id number] Credit Card Analyst: Fidel Hallman MD #### HIVCMB, PHEP #### [address] [id number] Credit Card Analyst: Valdo Diaz MD Protein [Mass/Vol] 7.0 g/dL Normal 6.4-8.3 [facility] Comment on above: Performed By: #### I PF, HCG, CP, CBC #### [facility] [address] [place] [address] [place], [place] 0607383 Credit Card Analyst: Fidel Hallman MD #### HIVCMB, PHEP #### [address] [id number] Credit Card Analyst: Valdo Diaz MD Sodium [Moles/Vol] 143 mmol/L Normal 135-144 [facility] Comment on above: Performed By: #### I PF, HCG, CP, CBC #### [facility] [address] [place] [address] [address]. [place], [place] [phone] Credit Card Analyst: Fidel Hallman MD #### HIVCMB, PHEP #### [address] [id number] Credit Card Analyst: Valdo Diaz MD Staging: Normal [facility] Comment on above: Result Comment: Stag e 1: Some kidney damage normal GFR Stage 2: Mild kidney damage GFR 60-89 Stage 3: Moderate kidney damage GFR 30-59 Stage 4: Severe kidney damage GFR 15-29 Stage 5: Severe kidney damage GFR <15 ESRD - chronic treatment by dialysis or transplant Performed By: #### I PF, HCG, CP, CBC #### [address] [place] [address] Credit Card Analyst: Fidel Hallman MD #### HIVCMB, PHEP #### [address] [id number] Credit Card Analyst: Valdo Diaz MD Urea nitrogen [Mass/Vol] 10 mg/dL Normal 6-20 [facility] Comment on above: Performed By: #### I PF, HCG, CP, CBC #### [address] [place] [address] Credit Card Analyst: Fidel Hallman MD #### HIVCMB, PHEP #### [address] [id number] Credit Card Analyst: Valdo Diaz MD Comprehensive Metabolic Pane ruiz 05-12-2020 Albumin [Mass/Vol] 3.9 g/dL 3.5 - 5.2 g/dL [place] Albumin/Globulin [Mass ratio] 1.3 {ratio} [place] ALP [Catalytic activity/Vol] 122 U/L High 35 - 104 U/L [place] ALT [Catalytic activity/Vol] 98 U/L High 5 - 33 U/L [place] Anion gap [Moles/Vol] 11 mmol/L 9 - 17 mmol/L [place] AST [Catalytic activity/Vol] 51 U/L High <32 [place] Bilirubin Ql (U) 0.20 mg/dL Low 0.3 - 1.2 mg/dL [place] Bun/Cre Ratio 14 [place] Calcium [Mass/Vol] 9.3 mg/dL 8.6 - 10. 4 mg/dL [place] Chloride [Moles/Vol] 109 mmol/L High 98 - 107 mmol/L [place] CO2 [Moles/Vol] 23 mmol/L 20 - 31 mmol/L [place] Creatinine [Mass/Vol] 0.69 mg/dL 0.5 - 0.9 mg/dL [place] GFR >60 >60 mL/min [place] GFR Non- >60 >60 mL/min [place] Glucose [Mass/Vol] 154 mg/dL High 70 - 99 mg/dL [place] Interpretation and review of laboratory results Abnormal [place] Potassium [Moles/Vol] 3.9 mmol/L 3.7 - 5.3 mmol/L [place] Protein [Mass/Vol] 7.0 g/dL 6.4 - 8.3 g/dL [place] Sodium [Moles/Vol] 143 mmol/L 135 - 144 mmol/L [place] Urea nitrogen [Mass/Vol] 10 mg/dL 6 - 20 mg/dL [place] HCG Qualitative, Serumon hCG Qual Negative NEGATIVE [place] Comment on above: Specimens with hCG l evels near the threshold of the test (25 mIU/mL) may give a negative or indeterminate result. In such cases, another test should be performed with a new specimen in 48-72 hours. If early is suspected clinically in this setting, correlation with quantitative serum b-hCG level is suggested. [facility] [employer] has confirmed the use of plasma for this test. This has not been cleared or approved by the U.S. Food and Drug Administration. The FDA has determined that such clearance is not necessary. HCG Screen, Bloodon 05-12-20 20 HCG Screen, Blood Negative Normal [facility] Comment on above: Result Comment: Spec imens with hCG levels near the threshold of the test (25 mIU/mL) may give a negative or indeterminate result. In such cases, another test should be performed with a new specimen in 48-72 hours. If early is suspected clinically in this setting, correlation with quantitative serum b-hCG level is suggested. [facility] has confirmed the use of plasma for this test. This has not been cleared or approved by the U.S. Food and Drug Administration. The FDA has determined that such clearance is not necessary. Performed By: #### I PF, HCG, CP, CBC #### [address] [place] [address] Credit Card Analyst: Fidel Hallman MD #### HIVCMB, PHEP #### [address] [address] Credit Card Analyst: Valdo Diaz MD HIV Ag/Abon 05-12-2020 HIV Ag/Ab Non-Reactive Normal NR [facility] Comment on above: Result Comment: No l aboratory evidence of HIV infection. If acute HIV infection is suspected, consider testing for HIV-1 RNA. Performed By: #### I PF, HCG, CP, CBC #### [address] [place] [address] Credit Card Analyst: Fidel Hallman MD #### HIVCMB, PHEP #### [place] [place], [place] [id number] Credit Card Analyst: Valdo Diaz MD HIV Screenon 05-12-2020 HIV Ag/Ab NONREACTIVE NONREACTIVE [place] Comment on above: No laboratory eviden ce of HIV infection. If acute HIV infection is suspected, consider testing for HIV-1 RNA. Hepatitis Acute [facility] 05-12 Hep A Ab,IgM Non-Reactive Normal NR [facility] Comment on above: Performed By: #### I PF, HCG, CP, CBC #### [address] [place] [address] Credit Card Analyst: Fidel Hallman MD #### HIVCMB, PHEP #### [address] [address] Credit Card Analyst: Valdo Diaz MD Hep B Core Ab,IgM Non-Reactive Normal [facility] Comment on above: Performed By: #### I PF, HCG, CP, CBC #### [address] [place] [address] Credit Card Analyst: Fidel Hallman MD #### HIVCMB, PHEP #### [address] [address] Credit Card Analyst: Valdo Diaz MD Hep B Surf Ag Non-Reactive Normal [facility] Comment on above: Performed By: #### I PF, HCG, CP, CBC #### [address] [place], [place] [phone] Credit Card Analyst: Fidel Hallman MD #### HIVCMB, PHEP #### [address] [address] Credit Card Analyst: Valdo Diaz MD Hep C Ab Reactive Abnormal [facility] Comment on above: Result Comment: The [...] #### I PF, HCG, CP, CBC #### [address] [place], [place] [id number] Credit Card Analyst: Fidel Hallman MD #### HIVCMB, PHEP #### [address] [address] Credit Card Analyst: Valdo Diaz MD Hepatitis Panel, Acuteon HAV IgM IA Qn (S) NONREACTIVE NONREACTIVE [place], [place] Hep B Core Ab, IgM NONREACTIVE NONREACTIVE [place], [place] Hepatitis B Surface Ag NONREACTIVE NONREACTIVE [place] Hepatitis C Ab REACTIVE Abnormal NONREACTIVE [facility] [place] Comment on above: The hepatitis C [...] Interpretation and review of laboratory results Abnormal [place] Immature Platelet Fractionon 05-12-2020 Interpretation and review of laboratory results Abnormal [place] Platelet, Fluorescence 103 Low [place], [place] Platelet, Immature Fraction 15.6 % High 1.1 - 10.3 % [place] Metabolic Panelon 05-12-2020 GFR/1.73 sq M predicted among non-blacks MDRD (S/P/Bld) [Vol rate/Area] [place] Comment on above: Average GFR for 30-3 9 years old: 107 mL/min/1.73sq m Chronic Kidney Disease: <60 mL/min/1.73sq m Kidney failure: <15 mL/min/1.73sq m eGFR calculated using average adult body mass. Additional eGFR calculator available at: http://www.HealthStream.enGreet/multiple_crcl_2012.htm Stage 1: Some kidney damage normal GFR Stage 2: Mild kidney damage GFR 60-89 Stage 3: Moderate kidney damage GFR 30-59 Stage 4: Severe kidney damage GFR 15-29 Stage 5: Severe kidney damage GFR <15 ESRD - chronic treatment by dialysis or transplant PLT, Immature Fract.on 05-12 Platelet, Fluoresc. 103 k/uL Low 138-453 [facility] Comment on above: Performed By: #### I PF, HCG, CP, CBC #### [facility] [address] [place] [address] Credit Card Analyst: Fidel Hallman MD #### HIVCMB, PHEP #### [facility] [address] [place], [place] [id number] Credit Card Analyst: Valdo Diaz MD PLT, Immature Fract. 15.6 % High 1.1-10.3 [facility] Comment on above: Performed By: #### I PF, HCG, CP, CBC #### [facility] [address] [place] [address] Credit Card Analyst: Fidel Hallman MD #### HIVCMB, PHEP #### [facility] [address] [place] [address] Credit Card Analyst: Valdo Diaz MD Ur Opiate Conf-Mayoon 2019 Ur Codeine-Hung 64 ng/mL Normal Cutoff: 25 [facility] Comment on above: Performed By: #### C BC #### [address] [address] Ur Dihydrocodeine-[place] Negative Normal Cutoff: 25 [facility] Comment on above: Performed By: #### C BC #### [address] [address] Ur Hydrocodone-[place] Negative Normal Cutoff: 25 [facility] Comment on above: Performed By: #### C BC #### [address] [address] Ur Hydromorphone-[place] Negative Normal Cutoff: 25 [facility] Comment on above: Performed By: #### C BC #### [address] [address] Ur Morphine-Hung 1231 ng/mL Normal Cutoff: 25 [facility] Comment on above: Performed By: #### C BC #### [address] [address] Ur Naloxone-[place] Negative Normal Cutoff: 25 [facility] Comment on above: Performed By: #### C BC #### [address] [address] Ur Norhydrocodone-[place] Negative Normal Cutoff: 25 [facility] Comment on above: Performed By: #### C BC #### [address] [address] Ur Noroxycodone-Hung Negative Normal Cutoff: 25 [facility] Comment on above: Performed By: #### C BC #### [address] [address] Ur Noroxymorphone-[place] Negative Normal Cutoff: 25 [facility] Comment on above: Performed By: #### C BC #### [address] [address] Ur Opiates Interp-[place] Positive Normal [facility] Comment on above: Result Comment: ADDITIONAL INFORMATION This report is intended for use in clinical monitoring and management of patients. It is not intended for use in employment-related testing. This test was developed and its performance characteristics determined by [facility] in a manner consistent with CLIA requirements. This test has not been cleared or approved by the U.S. Food and Drug Administration. Test Performed by: [place] [address] Credit Card Analyst: Santiago Mendoza M.D. Ph.D.; CLIA# [id number] Performed By: #### C BC #### [address] [address] Ur Oxycodone-Hung Negative Normal Cutoff: 25 [facility] Comment on above: Performed By: #### C BC #### [address] [address] Ur Oxymorphone-[place] Negative Normal Cutoff: 25 [facility] Comment on above: Performed By: #### C BC #### [address] [address] HBc Total Abs-Mayoon 020 HBc Total Ab-Hung Negative Normal Negative [facility] Comment on above: Result Comment: Test Performed by: [facility] [place] [address] Credit Card Analyst: Santiago Mendoza M.D. Ph.D.; CLIA# [id number] Performed By: #### C BC #### [address] [address] HCV RNA Qnt-[facility] 0 HepC RNA PCR Qnt-[place] [address] IU/mL Abnormal Undetected [facility] Comment on above: Result Comment: Resu lt in log IU/mL is 5.71. ADDITIONAL INFORMATION The quantification range of this assay is 15 to 100,000,000 IU/mL (1.18 log to 8.00 log IU/mL). Testing was performed using the kendrick HCV test ([employer] with the kendrick Gravity R&D0 System. Test Performed by: [facility] [place] [address] Credit Card Analyst: Santiago Mendoza M.D. Ph.D.; CLIA# [id number] Performed By: #### C BC #### [address] [address] .eGFRon 12-03-2019 eGFR AA >60 Normal >=60 [facility] Comment on above: Order Comment: Order added by Discern rule Result Comment: Resu lt = 0-14.9 mL/min/1.73 m2 Kidney failure or Dialysis Result = 15-29 mL/min/1.73 m2 Severe decrease in GFR Result = 30-59 mL/min/1.73 m2 Moderate decrease in GFR Result >= 60 mL/min/1.73 m2 Normal or increased GFR Performed By: #### . Automated Diff #### [address] [address] eGFR Non-AA >60 Normal >=60 [facility] Comment on above: Order Comment: Order [...] Performed By: #### . Automated Diff #### [address] [address] [facility] Albumin [Mass/Vol] 3.4 g/dL Normal 3.2-4.9 [facility] Comment on above: Result Comment: [facility] Laboratory updated the methodology used for albumin testing on 02/06/18. Albumin measurement was performed using a bromcresol purple dye-binding assay. Performed By: #### . Automated Diff #### [address] [address] Albumin/Globulin [Mass ratio] 1.1 {ratio} Normal 1.1-2.2 [facility] Comment on above: Performed By: #### . Automated Diff #### [address] [address] Alk Phos 120 IU/L High 32-91 [facility] Comment on above: Performed By: #### . Automated Diff #### [address] [address] ALT [Catalytic activity/Vol] 76 U/L High 14-54 [facility] Comment on above: Performed By: #### . Automated Diff #### [address] [address] Anion gap [Moles/Vol] 13 mmol/L Normal 7-17 [facility] Comment on above: Performed By: #### . Automated Diff #### [address] [address] AST [Catalytic activity/Vol] 53 U/L High 15-41 [facility] Comment on above: Performed By: #### . Automated Diff #### [address] [address] Bili Total 0.5 mg/dL Normal 0.3-1.2 [facility] Comment on above: Performed By: #### . Automated Diff #### [address] [address] Calcium [Mass/Vol] 8.7 mg/dL Normal 8.5-10.3 [facility] Comment on above: Performed By: #### . Automated Diff #### [address] [address] Chloride [Moles/Vol] 104 mmol/L Normal 98-110 [facility] Comment on above: Performed By: #### . Automated Diff #### [address] [address] CO2 [Moles/Vol] 26 mmol/L Normal 22-32 [facility] Comment on above: Performed By: #### . Automated Diff #### [address] [address] Creatinine [Mass/Vol] 0.75 mg/dL Normal 0.44-1.03 [facility] Comment on above: Performed By: #### . Automated Diff #### [address] [address] Glucose [Mass/Vol] 100 mg/dL High 70-99 [facility] Comment on above: Performed By: #### . Automated Diff #### [address] [address] Potassium [Moles/Vol] 3.7 mmol/L Normal 3.4-4.8 [facility] Comment on above: Performed By: #### . Automated Diff #### [address] [address] Protein [Mass/Vol] 6.5 g/dL Normal 6.5-8.1 [facility] Comment on above: Performed By: #### . Automated Diff #### [facility] [address] [place] [address] Sodium [Moles/Vol] 139 mmol/L Normal 133-142 [facility] Comment on above: Performed By: #### . Automated Diff #### [address] [address] Urea nitrogen [Mass/Vol] 15 mg/dL Normal 8-26 [facility] Comment on above: Performed By: #### . Automated Diff #### [address] [address] Urea nitrogen/Creatinine [Mass ratio] 20.0 mg/mg Normal 10.0-20.0 [facility] Comment on above: Performed By: #### . Automated Diff #### [address] [address] Chlam & GC, DNAon 12-03-2019 Chlamydia, DNA Negative Normal Negative [facility] Comment on above: Result Comment: The [...] clinician. Performed By: #### C BC #### [address] [address] Gonorrhea, DNA Negative Normal Negative [facility] Comment on above: Result Comment: The [...] clinician. Performed By: #### C BC #### [facility] [address] [place] [address] Inpatient Clinical Summaryon 12-03-2019 Inpatient Clinical Summary [place] [id number] [place] [address] [address] Clinical Summary Person Information Name: Farideh Hsu Age: 34 Years : 1985 Sex: Female PCP: Marital Status: Single Phone: PCP: Race: White Ethnicity: Not or Language: Australian Visit Id: Visit Reason: Drug withdrawal Speciality: Acuity: Enc Type: Observation Med Service: X Medication Withdrawal Management Arrival: 12/02/2019 03:53:05 Discharge: Dispo Type: Place in Observation Address: [address] [place] [address] Diagnosis: 1:Heroin addiction; 2:Tobacco user; 3:Transaminitis; 4:Hepatitis [...] 12/03/19 12:52:00 EDT, 1 to 2 days, [facility] as scheduled tomorrow. Allergies No Known [...] range between ( 27.2 and 40.8 ) [place] Auto: 4.2 % -- Normal range between [...] range between ( 36.0 and 46.0 ) [place] Absolute: 0.4 x10 MCH: 28.6 pg -- [...] YOUR HOSPITAL STAY New Medications [facility], [address] [place], [place] [id number], [phone] baclofen (baclofen 10 mg oral tablet) 10 [...] OF YOUR PATIENT?S CURRENT MEDICATIONS [facility] [facility], [address] [facility] [place] [id number], [phone] baclofen (baclofen 10 mg oral tablet) 10 [...] Referring Physician: Follow up: With: Address: When: [facility] [place] [address] [place] [address] 12/08/2019 12:30:00 Comments: Intake and diagnostic assessment With: Address: When: [facility] and [place] [address] [place] [address] 12/04/2019 13:00:00 Comments: Case management appointment Normal [facility] Lipid Panelon 12-03-2019 Cholesterol in LDL [Mass/Vol] 97 mg/dL Normal 0-99 [facility] Comment on above: Result Comment: The equation being used in this calculation is LDL = (Chol - HDL) - (Trig / 5) The optimal value of LDL for individual patients may vary. The patient's history of Artherosclerosis and other cardiac risk factors should be considered. Performed By: #### . Automated Diff #### [address] [address] Cardiac Risk 6.3 Normal [facility] Comment on above: Result Comment: Men Women 1/2 Average 3.43 3.27 Average 4.97 4.44 2x Average 9.55 7.05 3x Average 23.99 11.04 Performed By: #### . Automated Diff #### [address] [address] Cholesterol [Mass/Vol] 151 mg/dL Normal 25-199 [facility] Comment on above: Result Comment: 0 - 17 years of age: Desirable 0-170 Borderline High 170-199 High >=200 18 years and older: Acceptable <200 Borderline High 200-239 High >=240 Performed By: #### . Automated Diff #### [address] [address] Cholesterol in HDL [Mass/Vol] 24.0 mg/dL Low 40.0-60.0 [facility] Comment on above: Performed By: #### . Automated Diff #### [address] [address] Cholesterol in VLDL [Mass/Vol] 30 mg/dL Normal 8-39 [facility] Comment on above: Performed By: #### . Automated Diff #### [place] [address] [place] [address] Triglyceride [Mass/Vol] 152 mg/dL Normal [facility] Comment on above: Result Comment: 0 - 17 years of age: Trig 90 - 129 Borderline High Trig => 130 High 18 years and older: Trig 150 - 199 Borderline High Trig 200 - 499 High Trig =>500 Very High Performed By: #### . Automated Diff #### [address] [address] .eGFRon 12-02-2019 eGFR AA >60 Normal >=60 [facility] Comment on above: Result Comment: Resu lt = 0-14.9 mL/min/1.73 m2 Kidney failure or Dialysis Result = 15-29 mL/min/1.73 m2 Severe decrease in GFR Result = 30-59 mL/min/1.73 m2 Moderate decrease in GFR Result >= 60 mL/min/1.73 m2 Normal or increased GFR Performed By: #### E GFR #### [address] [address] eGFR Non-AA >60 Normal >=60 [facility] Comment on above: Result Comment: Resu [...] dosing. Performed By: #### E GFR #### [address] [address] CBC w/ Diffon 12-02-2019 Erythrocyte distribution width (RBC) [Ratio] 15.1 % High 11.6-14.8 [facility] Comment on above: Performed By: #### C BC #### [address] [address] Hematocrit (Bld) [Volume fraction] 35.2 % Low 36.0-46.0 [facility] Comment on above: Performed By: #### C BC #### [address] [address] Hemoglobin (Bld) [Mass/Vol] 11.9 g/dL Low 12.0-16.0 [facility] Comment on above: Performed By: #### C BC #### [address] [address] MCH (RBC) [Entitic mass] 28.6 pg Normal 27.0-35.0 [facility] Comment on above: Performed By: #### C BC #### [address] [address] MCHC (RBC) [Mass/Vol] 33.9 % Normal 31.0-37.0 [facility] Comment on above: Performed By: #### C BC #### [address] [address] MCV (RBC) [Entitic vol] 84.4 fL Normal 80.0-100.0 [facility] Comment on above: Performed By: #### C BC #### [address] [address] Platelet mean volume (Bld) [Entitic vol] 11.6 fL High 6.7-10.6 [facility] Comment on above: Performed By: #### C BC #### [address] [address] Platelets (Bld) [#/Vol] 94 x10*3/mcL Low 150-350 [facility] Comment on above: Performed By: #### C BC #### [address] [address] RBC (Bld) [#/Vol] 4.17 x10*6/mcL Normal 3.80-5.20 [facility] Comment on above: Performed By: #### C BC #### [address] [address] WBC (Bld) [#/Vol] 10.0 x10*3/mcL Normal 4.5-11.0 [facility] Comment on above: Performed By: #### C BC #### [address] [address] CMPon 12-02-2019 Albumin [Mass/Vol] 4.3 g/dL Normal 3.2-4.9 [facility] Comment on above: Result Comment: [facility] Laboratory updated the methodology used for albumin testing on 02/06/18. Albumin measurement was performed using a bromcresol purple dye-binding assay. Performed By: #### C OMP #### [address] [address] Albumin/Globulin [Mass ratio] 1.3 {ratio} Normal 1.1-2.2 [facility] Comment on above: Performed By: #### C OMP #### [address] [address] Alk Phos 143 IU/L High 32-91 [facility] Comment on above: Performed By: #### C OMP #### [address] [address] ALT [Catalytic activity/Vol] 74 U/L High 14-54 [facility] Comment on above: Performed By: #### C OMP #### [address] [address] Anion gap [Moles/Vol] 15 mmol/L Normal 7-17 [facility] Comment on above: Performed By: #### C OMP #### [address] [address] AST [Catalytic activity/Vol] 47 U/L High 15-41 [facility] Comment on above: Performed By: #### C OMP #### [address] [address] Bili Total 0.4 mg/dL Normal 0.3-1.2 [facility] Comment on above: Performed By: #### C OMP #### [address] [address] Calcium [Mass/Vol] 9.2 mg/dL Normal 8.5-10.3 [facility] Comment on above: Performed By: #### C OMP #### [address] [address] Chloride [Moles/Vol] 99 mmol/L Normal 98-110 [facility] Comment on above: Performed By: #### C OMP #### [address] [address] CO2 [Moles/Vol] 25 mmol/L Normal 22-32 [facility] Comment on above: Performed By: #### C OMP #### [address] [address] Creatinine [Mass/Vol] 0.83 mg/dL Normal 0.44-1.03 [facility] Comment on above: Performed By: #### C OMP #### [address] [address] Glucose [Mass/Vol] 90 mg/dL Normal 70-99 [facility] Comment on above: Performed By: #### C OMP #### [address] [address] Potassium [Moles/Vol] 3.4 mmol/L Normal 3.4-4.8 [facility] Comment on above: Performed By: #### C OMP #### [address] [address] Protein [Mass/Vol] 7.7 g/dL Normal 6.5-8.1 [facility] Comment on above: Performed By: #### C OMP #### [address] [address] Sodium [Moles/Vol] 136 mmol/L Normal 133-142 [facility] Comment on above: Performed By: #### C OMP #### [address] [address] Urea nitrogen [Mass/Vol] 15 mg/dL Normal 8-26 [facility] Comment on above: Performed By: #### C OMP #### [address] [address] Urea nitrogen/Creatinine [Mass ratio] 18.1 mg/mg Normal 10.0-20.0 [facility] Comment on above: Performed By: #### C OMP #### [address] [address] Diff Autoon 12-02-2019 Baso Absolute 0.0 x10*3/mcL Normal 0.0-0.2 [facility] Comment on above: Performed By: #### . Automated Diff #### [address] [address] Basophils/100 WBC (Bld) 0.4 % Normal 0.0-1.5 [facility] Comment on above: Performed By: #### . Automated Diff #### [address] [address] Eos Absolute 0.4 x10*3/mcL Normal 0.0-0.4 [facility] Comment on above: Performed By: #### . Automated Diff #### [address] [address] Eosinophils/100 WBC (Bld) 3.7 % Normal 0.0-5.4 [facility] Comment on above: Performed By: #### . Automated Diff #### [address] [address] Lymphocytes (Bld) [#/Vol] 3.2 x10*3/mcL Normal 1.0-4.8 [facility] Comment on above: Performed By: #### . Automated Diff #### [address] [address] Lymphocytes/100 WBC (Bld) 31.5 % Normal 27.2-40.8 [facility] Comment on above: Performed By: #### . Automated Diff #### [address] [address] [place] Absolute 0.4 x10*3/mcL Normal 0.1-1.1 [facility] Comment on above: Performed By: #### . Automated Diff #### [address] [address] Monocytes/100 WBC (Bld) 4.2 % Normal 3.7-11.9 [facility] Comment on above: Performed By: #### . Automated Diff #### [address] [address] Neutro Absolute 6.0 x10*3/mcL Normal 1.8-7.7 [facility] Comment on above: Performed By: #### . Automated Diff #### [address] [address] Neutro Auto 60.2 % Normal 47.2-70.8 [facility] Comment on above: Performed By: #### . Automated Diff #### [address] [address] ED Clinical Summaryon 2019 ED Clinical Summary [address] [id number] ED Clinical Summary Person Information Name: Farideh [facility] Age: 34 Years : 1985 Sex: Female PCP: Marital Status: Single Phone: Race: White Ethnicity: Not or Language: Australian Visit Reason: Drug withdrawal; Drug withdrawal Acuity: 3 Enc Type: Observation Med Service: X Medication Withdrawal Management Arrival: 12/02/2019 03:53:05 Discharge: LOS: 000 04:16 Checkin: 12/02/2019 03:53:05 Checkout: 12/02/2019 08:09:13 Dispo Type: Place in Observation Address: [address] [place] [address] Provider Notes: Diagnosis: 1:Heroin addiction Problems No [...] range between ( 27.2 and 40.8 ) [place] Auto: 4.2 % -- Normal range between [...] range between ( 36.0 and 46.0 ) [place] Absolute: 0.4 x10 MCH: 28.6 pg -- [...] EDT, Medical/Surgical 5th floor Patient Education Information: [facility] Poison Help line: . [facility] Hotline: [place] Tobacco Quit Line: [place], [place]) [address]: [phone] [place], [place]) [address]: [phone] [facility] [address] [place], [place]: [phone] [facility] ED Note-Physicianon 12-02-19 ED Note-Physician seen by social work coordinator, admitted to [facility] program Electronically signed by Benita Mace MD 12/02/19 08:16 EDT [facility] ED Note-Physician Chief Complaint Patient reports [...] 04:43 60.2 Lymph Auto 12/02/19 04:43 31.5 [place] Auto 12/02/19 04:43 4.2 Eos Auto 12/02/19 04:43 3.7 Basophil Auto 12/02/19 04:43 0.4 Neutro Absolute 12/02/19 04:43 6.0 Lymph Absolute 12/02/19 04:43 3.2 [place] Absolute 12/02/19 04:43 0.4 Eos Absolute 12/02/19 [...] YEAGER, Nestor Amaya 12/02/19 19:07 EDT Normal [facility] Ethanolon 12-02-2019 Ethanol [Mass/Vol] mg/dL Normal <=9 [facility] Comment on above: Result Comment: To c onvert mg/dL to g/dL, divide result by 1,000. Legal limit of intoxication is 80 mg/dL (0.08 g/dL). Performed By: #### A LC #### [place] [id number] Fentanyl Scn without Confirm , Uron 12-02-2019 Ur Fentanyl Scrn Presumptive Pos Abnormal NEG <1.0 [facility] Comment on above: Result Comment: Urin e sample is presumptive positive for fentanyl. The [employer] SEFRIA Fentanyl Urine Enzyme Immunoassay provides only [...] Performed By: #### . Automated Diff #### [place] [id number] Ur Fentanyl Scrn Qnt 3.03 ng/mL High <=0.99 [facility] Comment on above: Performed By: #### . Automated Diff #### [place] [address] HIV1/2 Ab,Ag Scnon 0 HIV-1/2 Ab,Ag 0.21 Normal [facility] Comment on above: Performed By: #### . Automated Diff #### [place] [address] HIV-1/2 Ab,Ag Interp Normal Negative [facility] Comment on above: Result Comment: N egative Negative Performed By: #### . Automated Diff #### [address] [address] Hep Scrn Chron 12-02-2019 HCV Signal to Cutoff Ratio 36.20 Normal [facility] Comment on above: Performed By: #### . Automated Diff #### [address] [address] Hep B Surface Antibody Interp Negative Normal [facility] Comment on above: Result Comment: Helga ent is considered to be not immune to infection. Performed By: #### . Automated Diff #### [place] [address] Hep Bs Ab <5.0 [facility] Comment on above: Performed By: #### . Automated Diff #### [place] [address] Hep Bs Ag Interp Normal Negative [facility] Comment on above: Result Comment: Ne gative Negative Performed By: #### . Automated Diff #### [address] [address] Hep C IgG Interp Abnormal Negative [facility] Comment on above: Result Comment: Re active [...] Performed By: #### . Automated Diff #### [place] [id number] History and Physicalon 12-01 History and Physical [...] Care Directive: unknown Health Care Power of Incising Machine Operator or next of kin: unknown Family Updated: [...] Oral, QID, PRN cloNIDine, 0.1 mg, Oral, [id number] Times cloNIDine, 0.2 mg, Oral, [id number] Times cloNIDine, 0.1 mg, Oral, q4hr, PRN [...] No qualifying data available. Electronically signed by Jaime-Familia GONZALEZ Nhimeliza Connor 12/02/19 11:58 EDT Normal [facility] RPR Screenon 12-02-2019 RPR Ql Non-Reactive Normal Non-Reactive [facility] Comment on above: Performed By: #### . Automated Diff #### [place] [id number] TSHon 12-02-2019 TSH Qn 3.77 mcIU/mL Normal 0.45-5.33 [facility] Comment on above: Result Comment: Refe rence Ranges for individuals from to 18 years of age were obtained from The Kathryn Cortes Handbook (20 ed) published by [facility]. Reference Ranges for Females: Females, 1st Trimester 0.05 ? 3.7 uIU/mL Females, 2nd Trimester 0.31 ? 4.35 uIU/mL Females, 3rd Trimester 0.41 ? 5.18 uIU/mL Performed By: #### T SH #### [address] [address] UDS Compon 12-02-2019 UA pH 5.0 Normal 4.5 - 7.8 [facility] Comment on above: Performed By: #### C [id number] #### [address] [address] UA Spec Grav 1.029 Normal 1.003-1.035 [facility] Comment on above: Performed By: #### C [id number] #### [address] [address] Creatinine [Mass/Vol] 351.3 mg/dL Normal [facility] Comment on above: Performed By: #### C [id number] #### [address] [address] Ur Amph Scrn Negative Normal NEG = <1000 [facility] Comment on above: Performed By: #### C [id number] #### [address] [address] Ur Reyna Scrn Negative Normal NEG = <200 [facility] Comment on above: Performed By: #### C [id number] #### [address] [address] Ur Benzodia Scrn Negative Normal NEG = <200 [facility] Comment on above: Performed By: #### C [id number] #### [address] [address] Ur Cannab Scrn Negative Normal NEG = <50 [facility] Comment on above: Performed By: #### C [id number] #### [address] [address] Ur Cocaine Scrn Negative Normal NEG = <300 [facility] Comment on above: Performed By: #### C [id number] #### [address] [address] Ur Methadone Scn Negative Normal NEG = <300 [facility] Comment on above: Performed By: #### C [id number] #### [address] [address] Ur Opiate Scrn Positive Abnormal NEG = <300 [facility] Comment on above: Result Comment: This unconfirmed positive screening result is to be used for medical treatment purposes only. Unconfirmed screening results must not be used for non-medical purposes. (e.g. employment testing, legal testing). Performed By: #### C [id number] #### [address] [place] [address] Ur Oxy Screen Negative Normal NEG = <100 [facility] Comment on above: Performed By: #### C [id number] #### [address] [address] Ur Oxy Scrn Qnt 24 ng/mL Normal <=99 [facility] Comment on above: Performed By: #### C [id number] #### [address] [address] Ur PCP Scrn Negative Normal NEG = <25 [facility] Comment on above: Performed By: #### C [id number] #### [address] [address] UDS Comp/Con 12-02-2019 Creatinine [Mass/Vol] 45.1 mg/dL Normal [facility] Comment on above: Performed By: #### . Automated Diff #### [address] [address] Ur Amph Scrn w/Conf Negative Normal NEG = <1000 [facility] Comment on above: Performed By: #### . Automated Diff #### [address] [address] Ur Reyna Scrn w/Conf Negative Normal NEG = <200 [facility] Comment on above: Performed By: #### . Automated Diff #### [address] [address] Ur Benzodia Scrn w/Conf Negative Normal NEG = <200 [facility] Comment on above: Performed By: #### . Automated Diff #### [address] [address] Ur Cannab Scrn w/Conf Negative Normal NEG = <50 [facility] Comment on above: Performed By: #### . Automated Diff #### [address] [address] Ur Cocaine Scrn w/Conf Negative Normal NEG = <300 [facility] Comment on above: Performed By: #### . Automated Diff #### [address] [address] Ur Methadone Scrn w/Conf Negative Normal NEG = <300 [facility] Comment on above: Performed By: #### . Automated Diff #### [address] [address] Ur Opiate Scrn w/Conf Positive Abnormal NEG = <300 [facility] Comment on above: Result Comment: This unconfirmed positive screening result is to be used for medical treatment purposes only. Confirmation testing will be performed using an alternate method. Performed By: #### . Automated Diff #### [address] [address] Ur Oxy Screen w/Conf Negative Normal NEG = <100 [facility] Comment on above: Performed By: #### . Automated Diff #### [address] [address] Ur Oxy Scrn Qnt w/Confirm 2 ng/mL Normal <=99 [facility] Comment on above: Performed By: #### . Automated Diff #### [address] [address] Ur PCP Scrn w/Conf Negative Normal NEG = <25 [facility] Comment on above: Performed By: #### . Automated Diff #### [address] [address] UA pH 6.0 Normal 4.5 - 7.8 [facility] Comment on above: Performed By: #### . Automated Diff #### [address] [address] UA Spec Grav 1.004 Normal 1.003-1.035 [facility] Comment on above: Performed By: #### . Automated Diff #### [place] [id number] Vital Signs Date Time Vital Sign Value Performing Clinician Facility 03-19-2025 09:20-0400 Body mass index (BMI) [Ratio] 42.99 kg/m2 Aurelio Stanley DO Work Phone: [facility] 03-19-2025 09:20-0400 Body weight 103.19 kg Aurelio Jaden DO Work Phone: [facility] 03-19-2025 09:20-0400 Diastolic blood pressure 86 mm[Hg] Aurelio Jaden DO Work Phone: [facility] 03-19-2025 09:20-0400 Systolic blood pressure 120 mm[Hg] Aurelio Jaden DO Work Phone: [facility] 12-08-2024 13:45-0400 Body mass index (BMI) [Ratio] 43.42 kg/m2 Aurelio Jaden DO Work Phone: [facility] 12-08-2024 13:45-0400 Body weight 104.24 kg Aurelio Jaden DO Work Phone: [facility] 12-08-2024 13:45-0400 Diastolic blood pressure 80 mm[Hg] Aurelio Jaden DO Work Phone: [facility] 12-08-2024 13:45-0400 Systolic blood pressure 126 mm[Hg] Aurelio Jaden DO Work Phone: [facility] 10-13-2024 15:16-0400 Body height 154.9 cm Rony Cox TRUST MANAGER-FAMILY COUNSELOR Work Phone: [facility] 10-13-2024 15:16-0400 Body mass index (BMI) [Ratio] 42.8 kg/m2 Rony Cox APRN-FAMILY COUNSELOR Work Phone: [facility] 10-13-2024 15:16-0400 Body temperature 99.3 [degF] Rony Cox TRUST MANAGER-FAMILY COUNSELOR Work Phone: [facility] 10-13-2024 15:16-0400 Body weight 102.69 kg Rony Cox TRUST MANAGER-FAMILY COUNSELOR Work Phone: [facility] 10-13-2024 15:16-0400 Diastolic blood pressure 78 mm[Hg] Rony Cox APRN-FAMILY COUNSELOR Work Phone: [facility] 10-13-2024 15:16-0400 Heart rate 100 /min Rony Cox TRUST MANAGER-FAMILY COUNSELOR Work Phone: [facility] 10-13-2024 15:16-0400 Respiratory rate 16 /min Rony Cox TRUST MANAGER-FAMILY COUNSELOR Work Phone: [facility] 10-13-2024 15:16-0400 SaO2% (BldA) [Mass fraction] 98 % Rony Cox TRUST MANAGER-FAMILY COUNSELOR Work Phone: [facility] [facility] 10-13-2024 15:16-0400 Systolic blood pressure 128 mm[Hg] Rony Cox TRUST MANAGER-FAMILY COUNSELOR Work Phone: [facility] 09-22-2024 14:16-0400 Body mass index (BMI) [Ratio] 41.46 kg/m2 Aurelio Jaden DO Work Phone: [facility] 09-22-2024 14:16-0400 Body weight 99.52 kg Aurelio Jaden DO Work Phone: [facility] [employer] 09-22-2024 14:16-0400 Diastolic blood pressure 80 mm[Hg] Aurelio Jaden DO Work Phone: [facility] 09-22-2024 14:16-0400 Systolic blood pressure 130 mm[Hg] Aurelio Jaden DO Work Phone: [facility] 09-11-2024 10:49-0400 Body temperature 97.39 [degF] Kalin Betancurzer TRUST MANAGER-FAMILY COUNSELOR Work Phone: [facility] 09-11-2024 10:49-0400 Diastolic blood pressure 90 mm[Hg] Kalin Redmondotzer TRUST MANAGER-FAMILY COUNSELOR Work Phone: [facility] 09-11-2024 10:49-0400 Heart rate 122 /min Kalin Betancurzer TRUST MANAGER-FAMILY COUNSELOR Work Phone: [facility] 09-11-2024 10:49-0400 SaO2% (BldA) [Mass fraction] 97 % Kalin Aguirre APRN-FAMILY COUNSELOR Work Phone: [facility] 09-11-2024 10:49-0400 Systolic blood pressure 140 mm[Hg] Kalin Aguirre APRN-FAMILY COUNSELOR Work Phone: [facility] 09-08-2024 14:24-0400 Body height 154.9 cm Rony Cox APRN-FAMILY COUNSELOR Work Phone: [facility] 09-08-2024 14:24-0400 Body mass index (BMI) [Ratio] 41.46 kg/m2 Rony Cox APRN-FAMILY COUNSELOR Work Phone: [facility] 09-08-2024 14:24-0400 Body temperature 98.6 [degF] Rony Cox APRN-FAMILY COUNSELOR Work Phone: [facility] 09-08-2024 14:24-0400 Body weight 99.52 kg Rony Cox APRN-FAMILY COUNSELOR Work Phone: [facility] 09-08-2024 14:24-0400 Diastolic blood pressure 98 mm[Hg] Rony Cox APRN-FAMILY COUNSELOR Work Phone: [facility] 09-08-2024 14:24-0400 Heart rate 106 /min Rony Cox APRN-FAMILY COUNSELOR Work Phone: [facility] 09-08-2024 14:24-0400 Respiratory rate 18 /min Rony Cox APRN-FAMILY COUNSELOR Work Phone: [facility] 09-08-2024 14:24-0400 SaO2% (BldA) [Mass fraction] 99 % Rony Cox APRN-FAMILY COUNSELOR Work Phone: [facility] 09-08-2024 14:24-0400 Systolic blood pressure 150 mm[Hg] Rony Cox TRUST MANAGER-FAMILY COUNSELOR Work Phone: [facility] 08-19-2024 09:49-0500 Body mass index (BMI) [Ratio] 41.19 kg/m2 Aurelio Jaden DO Work Phone: [facility] 08-19-2024 09:49-0500 Body weight 98.88 kg Aurelio Jaden DO Work Phone: [facility] 08-19-2024 09:49-0500 Diastolic blood pressure 100 mm[Hg] Aurelio Jaden DO Work Phone: [facility] 08-19-2024 09:49-0500 Systolic blood pressure 144 mm[Hg] Aurelio Jaden DO Work Phone: [facility] 07-14-2024 13:03-0500 Body height 154.9 cm Ronylamonte Cox TRUST MANAGER-FAMILY COUNSELOR Work Phone: [facility] 07-14-2024 13:03-0500 Body mass index (BMI) [Ratio] 39.53 kg/m2 Rony Grayillo TRUST MANAGER-FAMILY COUNSELOR Work Phone: [facility] 07-14-2024 13:03-0500 Body temperature 99 [degF] Rony Cox TRUST MANAGER-FAMILY COUNSELOR Work Phone: [facility] 07-14-2024 13:03-0500 Body weight 94.89 kg Rony Cox TRUST MANAGER-FAMILY COUNSELOR Work Phone: [facility] 07-14-2024 13:03-0500 Diastolic blood pressure 80 mm[Hg] Rony Cox TRUST MANAGER-FAMILY COUNSELOR Work Phone: [facility] 07-14-2024 13:03-0500 Heart rate 100 /min Rony Cox TRUST MANAGER-FAMILY COUNSELOR Work Phone: [facility] 07-14-2024 13:03-0500 Respiratory rate 18 /min Rony Cox TRUST MANAGER-FAMILY COUNSELOR Work Phone: [facility] 07-14-2024 13:03-0500 SaO2% (BldA) [Mass fraction] 99 % Rony Cox APRN-FAMILY COUNSELOR [facility] 07-14-2024 [id number] Systolic blood pressure 120 mm[Hg] Rony Cox APRN-FAMILY COUNSELOR Work Phone: [facility] Encounters Encounter Date Encounter Type Care Provider Facility Start: 03-19-2025 End: 03-19-2025 Office outpatient visit 15 minutes Aurelio Jaden DO Work Phone: [facility] Comment on above: Pre-op examination; Pelvic pain; Dyspareunia in female; Dysmenorrhea; Menorrhagia with regular cycle Start: 03-19-2025 End: 03-19-2025 Preprocedural examination done Aurelio Jaden DO Work Phone: [facility] Start: 03-19-2025 End: 03-19-2025 ambulatory AURELIO JADEN Not Available Start: 01-29-2025 End: 01-30-2025 Refill Rony Cox APRN-FAMILY COUNSELOR [facility] Comment on above: Insomnia, unspecifie d type Start: 01-20-2025 End: 01-22-2025 Refill Rony Cox APRN-FAMILY COUNSELOR Work Phone: [facility] Comment on above: Nephrolithiasis; Bipolar affective disorder, currently depressed, mild (CMS-HCC); Lumbar back pain with radiculopathy affecting left lower extremity Start: 12-08-2024 End: 12-08-2024 Bamboo flowsheet Aurelio Jaden DO Work Phone: [facility] Start: 12-08-2024 End: 12-11-2024 Bamboo flowsheet Aurelio Jaden DO Work Phone: [facility] Start: 12-08-2024 End: 12-11-2024 Clinisync Result Encounter Aurelio Jaden DO Work Phone: [facility] Unsolicited Start: 12-08-2024 End: 12-08-2024 Patient encounter procedure Aurelio Jaden DO Work Phone: [facility] Work Phone: Start: 12-08-2024 End: 12-08-2024 Periodic preventive med est patient 18-39 yrs Aurelio Jaden DO Work Phone: [facility] Comment on above: Well woman exam with routine gynecological exam; Pelvic pain in female; Menorrhagia with regular cycle Start: 12-08-2024 End: 12-08-2024 ambulatory AURELIO JADEN Not Available Start: 11-28-2024 End: 12-01-2024 Refill Rony Cox TRUST MANAGER-FAMILY COUNSELOR [facility] Comment on above: Bipolar affective di sorder, currently depressed, mild ([facility]) Start: 11-25-2024 ambulatory [facility] Start: 11-19-2024 End: 11-19-2024 Orders Only Rony Cox TRUST MANAGER-FAMILY COUNSELOR [facility] Comment on above: Leukocytosis, unspec ified type (Primary Dx) Start: 11-18-2024 End: 11-18-2024 Orders Only Rony Cox TRUST MANAGER-FAMILY COUNSELOR Work Phone: [facility] Start: 11-05-2024 End: 11-06-2024 Refill Rony Cox TRUST MANAGER-FAMILY COUNSELOR [facility] Comment on above: Migraine without aur a and without status migrainosus, not intractable Start: 10-13-2024 End: 10-13-2024 ambulatory [facility] Start: 10-13-2024 Encounter for genera l adult medical examination without abnormal findings [facility] Start: 10-13-2024 End: 10-13-2024 Patient encounter procedure Rony Cox TRUST MANAGER-FAMILY COUNSELOR Work Phone: [facility] Start: 10-13-2024 End: 10-13-2024 Periodic preventive med est patient 18-39 yrs Rony Grayillo TRUST MANAGER-FAMILY COUNSELOR Work Phone: [facility] Comment on above: Annual physical exam (Primary Dx); Insomnia, unspecified type; Blood tests for routine general physical examination Start: 10-13-2024 End: 10-13-2024 Physical examination Rony Grayatul PAREDESN-FAMILY COUNSELOR Work Phone: [facility] Start: 10-13-2024 End: 10-13-2024 ambulatory [facility] Start: 10-13-2024 Encounter for genera l adult medical examination without abnormal findings [facility] Start: 10-11-2024 End: 10-13-2024 Refill Rony Aguirre Kenny PAREDESN-FAMILY COUNSELOR Work Phone: [facility] Comment on above: Lumbar back pain wit h radiculopathy affecting left lower extremity Start: 09-22-2024 End: 09-22-2024 Postop follow up visit related to original px Aurelio Jaden DO Work Phone: [facility] Comment on above: Postoperative follow -up; Endometriosis Start: 09-22-2024 End: 09-22-2024 ambulatory AURELIO JADEN Not Available Start: 09-22-2024 End: 09-22-2024 Bamboo flowsheet Aurelio Jaden DO Work Phone: [facility] Start: 09-22-2024 End: 09-22-2024 Bamboo flowsheet Aurelio Jaden DO Work Phone: [facility] Start: 09-11-2024 End: 09-11-2024 Orders Only Rony Crala Kenny TRUST MANAGER-FAMILY COUNSELOR [facility] Start: 09-09-2024 End: 09-11-2024 Telephone encounter Jumana Natasha [employer] [facility] Start: 09-08-2024 End: 09-08-2024 Office outpatient visit 15 minutes Rony Cox TRUST MANAGER-FAMILY COUNSELOR Work Phone: [facility] Comment on above: Benign essential HTN (Primary Dx) Start: 09-08-2024 End: 09-08-2024 ambulatory RONYLamonte COX [facility] Start: 09-07-2024 End: 09-08-2024 Refill Rony Cox TRUST MANAGER-FAMILY COUNSELOR Work Phone: [facility] Comment on above: Migraine without aur a and without status migrainosus, not intractable Start: 09-01-2024 End: 09-03-2024 Clinisync Result Encounter Aurelio Jaden DO Work Phone: [facility] Unsolicited Start: 09-01-2024 End: 09-03-2024 Clinisync Result Encounter Aurelio Jaden DO Work Phone: [facility] Unsolic[facility] Start: 08-19-2024 End: 08-19-2024 Bamboo flowsheet Aurelio Jaden DO Work Phone: [facility] Start: 08-19-2024 End: 08-19-2024 Bamboo flowsheet Aurelio Jaden DO Work Phone: [facility] Start: 08-19-2024 End: 08-19-2024 ambulatory AURELIO JADEN Not Available Start: 08-19-2024 End: 08-19-2024 Office outpatient visit 15 minutes Aurelio Jdaen DO Work Phone: [facility] Comment on above: Pre-op examination; Pelvic pain in female Start: 08-19-2024 End: 08-19-2024 Preprocedural examination done Aurelio Jaden DO Work Phone: [facility] Start: 08-11-2024 End: 08-11-2024 Refill Rony Cox TRUST MANAGER-FAMILY COUNSELOR Work Phone: [facility] Comment on above: Lumbar back pain wit h radiculopathy affecting left lower extremity Start: 07-15-2024 End: 07-15-2024 Orders Only Rony Cox TRUST MANAGER-FAMILY COUNSELOR [facility] Comment on above: Vitamin D deficiency (Primary Dx) Start: 07-14-2024 End: 07-14-2024 ambulatory [facility] Start: 07-14-2024 End: 07-14-2024 Office outpatient visit 25 minutes Rony Cox TRUST MANAGER-FAMILY COUNSELOR Work Phone: [facility] Comment on above: Vitamin D deficiency (Primary Dx); Bipolar affective disorder, currently depressed, mild ([facility]); Chronic seasonal allergic rhinitis; Nephrolithiasis; Lumbar back pain with radiculopathy affecting left lower extremity; Migraine without aura and without status migrainosus, not intractable Start: 07-14-2024 End: 07-14-2024 ambulatory [facility] Start: 07-12-2024 End: 07-14-2024 Refill Darrell Hernandez DO Work Phone: [facility] Comment on above: Lumbar back pain wit h radiculopathy affecting left lower extremity Start: 06-09-2024 End: 06-09-2024 Refill Felicitas Gamino [facility] Comment on above: Bipolar affective di sorder, currently depressed, mild (CMS- HCC); Canker sores oral; Vitamin D deficiency; Chronic seasonal allergic rhinitis; Mineral metabolism disorder; Nephrolithiasis; Lumbar back pain with radiculopathy affecting left lower extremity; Migraine without aura and without status migrainosus, not intractable Start: 02-12-2024 End: 02-14-2024 Refill Destiny Colvin [facility] Comment on above: Lumbar back pain wit h radiculopathy affecting left lower extremity Start: 12-15-2023 End: 12-17-2023 Refill Rony J Cox TRUST MANAGER-FAMILY COUNSELOR Work Phone: [facility] Comment on above: Lumbar back pain wit h radiculopathy affecting left lower extremity Start: 11-08-2023 End: 11-08-2023 Refill Rony J Cox TRUST MANAGER-FAMILY COUNSELOR Work Phone: [facility] Comment on above: Bipolar affective di sorder, currently depressed, mild ([facility]) Start: 10-14-2023 End: 10-15-2023 Refill Rony J Cox TRUST MANAGER-FAMILY COUNSELOR Work Phone: [facility] Comment on above: Lumbar back pain wit h radiculopathy affecting left lower extremity; Bipolar affective disorder, currently depressed, mild ([facility]) Start: 09-12-2023 Refill Rony J Cast illo TRUST MANAGER-FAMILY COUNSELOR Work Phone: [facility] Comment on above: Lumbar back pain wit h radiculopathy affecting left lower extremity; Vitamin D deficiency Start: 08-14-2023 Refill Rony J Cast illo TRUST MANAGER-FAMILY COUNSELOR [facility] Comment on above: Lumbar back pain wit h radiculopathy affecting left lower extremity Start: 08-06-2023 Refill Rony J Cast illo TRUST MANAGER-FAMILY COUNSELOR [facility] Start: 02-21-2023 End: 02-22-2023 ambulatory RONY COX Facility:[facility] Start: 02-21-2023 End: 02-21-2023 Patient encounter procedure Li Deutsch [facility] Start: 01-24-2023 ambulatory RONY COX Facili ty:[facility] Start: 09-19-2022 End: 09-19-[address] JOSE AGUILAR . Facility: Start: 07-12-2022 End: 07-12-2022 ambulatory NONE LISTED REQUEST Facility: Start: 07-10-2022 End: 07-10-2022 ambulatory NONE LISTED REQUEST Facility: Start: 06-08-2022 End: 06-08-2022 ambulatory NONE LISTED REQUEST Facility: Start: 11-23-2021 End: 11-23-2021 ambulatory NONE LISTED REQUEST Facility: Start: 10-27-2020 End: 10-28-2020 ambulatory [facility] Start: 10-27-2020 End: 10-27-2020 [facility] Start: 10-27-2020 End: 10-28-2020 ambulatory [facility] Start: 10-27-2020 End: 10-27-2020 Subsequent [facility] Start: 06-03-2020 End: 2020 ambulatory [facility] Start: 06-03-2020 End: 06-03-2020 Subsequent [facility] Start: 05-12-2020 End: 05-13-2020 ambulatory [facility] Start: 05-12-2020 End: 05-12-2020 Subsequent [facility] Start: 05-11-2020 End: 05-12-2020 ambulatory [facility] Start: 05-11-2020 End: 05-11-2020 Subsequent [facility] Start: 12-02-2019 End: 12-03-2019 Patient encounter procedure Gerson Sheppard Facility:[facility] Procedures Date Procedure Procedure Detail Performing Clinician Start: 12-08-2024 IGP,APTIMA HPV,AGE GDLN Aurelio Jaden DO Work Phone: Start: 09-01-2024 ECG 12-LEAD Aurelio Fazi o DO Work Phone: Start: 09-01-2024 ALL BASIC METABOLIC PANEL Aurelio Jaden DO Work Phone: Start: 06-14-2023 Adult depression scr eening assessment Rony [facility] Work Phone: Start: 09-19-2022 Microscopic observat ion [Identifier] in Cervix by Cyto stain Rony [facility] Work Phone: Start: 10-27-2020 Antibody hiv-1&hiv-2 single result Diego Hernandez APRN - [facility] Work Phone: Start: 10-27-2020 Comprehensive metabo lic panel Diego Hernandez TRUST MANAGER - [facility] Work Phone: Start: 10-27-2020 IMMATURE PLATELET FRACTION Diego Hernandez APRN - [facility] Work Phone: Start: 05-12-2020 Antibody hiv-1&hiv-2 single result DIEGO HERNANDEZ Start: 05-12-2020 Blood count complete automated DIEGO HERNANDEZ Start: 05-12-2020 Iadna hepatitis c qu ant & reverse visual merchandise manager DIEGO HERNANDEZ Start: 05-12-2020 Acute hepatitis panel [...] Treatment Date Care Activity Detail Author Start: 12-14-2025 End: 12-14-2025 Patient encounter procedure [facility] Start: 10-13-2025 Adult BMI Follow Up Plan Adult BMI Follow Up Plan [facility] Start: 10-13-2025 Adult BMI Screening Adult BMI Screen ing [facility] Start: 10-13-2025 Tobacco Screening Tobacco Screening [facility] Start: 09-19-2025 Screening for malign ant neoplasm of cervix Pap Smear [facility] Start: 09-08-2025 Adult BMI Follow Up Plan Adult BMI Follow Up Plan [facility] Start: 09-08-2025 Adult BMI Screening Adult BMI Screen ing [facility] Start: 09-08-2025 Tobacco Screening Tobacco Screening [facility] Start: 07-14-2025 Adult BMI Follow Up Plan Adult BMI Follow Up Plan [facility] Start: 07-14-2025 Adult BMI Screening Adult BMI Screen ing [facility] Start: 07-14-2025 Tobacco Screening Tobacco Screening [facility] Start: 05-27-2025 End: 05-27-2025 Patient encounter procedure 05/27/2025 9:30 AM EST Office Visit [facility] [address] [place] [id number] Celeste Camacho, PA [address] [place] [place] [address] [facility] Start: 04-22-2025 End: 04-22-2025 Patient encounter procedure 04/22/2025 10:30 AM EDT Office Visit [facility] [address] [place] [id number] Celeste Camacho, PA [address] [place] [address] [facility] Start: 04-14-2025 End: 04-14-2025 Patient encounter procedure [facility] Start: 03-02-2025 Influenza vaccination Influenza Vacc ine [facility] Start: 12-08-2024 End: 12-08-2024 Patient encounter procedure [facility] Comment on above: Arrived Start: 10-13-2024 End: 10-13-2024 Patient encounter procedure 10/13/2024 3:20 PM EDT Office Visit [facility] [address] [place] [address] Rony Cox, TRUST MANAGER-FAMILY COUNSELOR [address] [place] [address] [facility] Start: 09-22-2024 End: 09-22-2024 Patient encounter procedure 09/22/2024 2:20 PM EDT Office Visit [facility] [address] [facility] [place] [phone] Aurelio Stanley DO [address] [place] [address] Arrived [facility] Comment on above: Arrived Start: 09-11-2024 End: 09-11-2024 Clinical Support 09/11/2024 11:00 AM EDT Clinical Support [facility] [address] [place] [address] [facility] Start: 09-08-2024 End: 09-08-2024 Patient encounter procedure 09/08/2024 2:20 PM EDT Office Visit [facility] [address] [place] [address] Rony Cox, TRUST MANAGER-FAMILY COUNSELOR [address] [place] [address] [facility] Start: 07-14-2024 End: 07-14-2024 Patient encounter procedure 07/14/2024 1:00 PM EST Office Visit [facility] [address] [place] [address] Rony Cox, TRUST MANAGER-FAMILY COUNSELOR [address] [place] [address] [facility] Start: 07-11-2024 Tobacco Counseling Tobacco Counselin g [facility] Start: 07-03-2024 End: 07-03-2024 Patient encounter procedure 07/03/2024 11:40 AM EST Office Visit [facility] [address] [place] [address] Rony Cox, TRUST MANAGER-FAMILY COUNSELOR [address] [place] [address] [facility] Start: 06-14-2024 Adult BMI Follow Up Plan Adult BMI Follow Up Plan [facility] Start: 06-14-2024 Adult BMI Screening Adult BMI Screen ing [facility] Start: 06-14-2024 Depression Screening Depression Scre ening [facility] Start: 06-14-2024 Tobacco Screening Tobacco Screening [facility] Start: 03-24-2024 End: 03-24-2024 Patient encounter procedure 03/24/2024 3:20 PM EDT Office Visit [facility] [address] [place] [address] Rony Cox, TRUST MANAGER-FAMILY COUNSELOR [address] [place] [address] [facility] Start: 03-02-2024 Influenza vaccination Influenza Vacc ine [facility] Start: 03-02-2023 Influenza vaccination Influenza Vacc ine [facility] Start: 03-02-2021 Influenza vaccination Flu vacc ine (Season Ended) [facility] Work Phone: Start: 03-02-2020 Influenza vaccination Flu vaccine (# 1) [place], [place] Start: 12-21-2019 DTaP,Tdap and Td Vaccines (2 - Td or Tdap) DTaP,Tdap and Td Vaccines (2 - Td or Tdap) [facility] Start: 2008 Screening for malign ant neoplasm of cervix Pap Smear [facility] Start: 2003 COVID-19 Vaccine (1) COVID-19 Vaccin e (1) [facility] Work Phone: Start: 1987 Tobacco Counseling Tobacco Counselin g [facility] End: 10-13-2025 CBC W Auto Differential panel - Blood CBC auto differential Lab Routine Blood tests for routine general physical examination 1 Occurrences starting 10/13/2024 until 10/13/2025 [facility] Comment on above: 1 Occurrences starti ng 10/13/2024 until 10/13/2025 CBC W Auto Different ial panel - Blood CBC auto differential Lab Routine Blood tests for routine general physical examination 10/13/2024 9:51 PM EDT [facility] End: 10-13-2025 Comprehensive metabolic 2000 panel - Serum or Plasma Comprehensive metabolic panel Lab Routine Blood tests for routine general physical examination 1 Occurrences starting 10/13/2024 until 10/13/2025 [employer] Phone: Comment on above: 1 Occurrences starti ng 10/13/2024 until 10/13/2025 Comprehensive metabo lic 2000 panel - Serum or Plasma Comprehensive metabolic panel Lab Routine Blood tests for routine general physical examination 10/13/2024 9:51 PM EDT [facility] Cytology Cervical or vaginal smear or scraping study Pap Smear Pathology and Cytology Routine Well woman exam with routine gynecological exam Ordered: 12/08/2024 [facility] [employer] Work Phone: Comment on above: Ordered: 12/08/2024 End: 11-19-2025 Flow Cytometry, Varies Flow Cytometry, Varies Pathology and Cytology Routine Leukocytosis, unspecified type 1 Occurrences starting 11/19/2024 until 11/19/2025 [employer] Work Phone: Comment on above: 1 Occurrences starti ng 11/19/2024 until 11/19/2025 End: 10-13-2025 Hemoglobin A1c/Hemoglobin.total in Blood Hemoglobin A1c Lab Routine Blood tests for routine general physical examination 1 Occurrences starting 10/13/2024 until 10/13/2025 [facility] Comment on above: 1 Occurrences starti ng 10/13/2024 until 10/13/2025 Hemoglobin A1c/Hemoglobin.total in Blood Hemoglobin A1c Lab Routine Blood tests for routine general physical examination 10/13/2024 9:51 PM EDT [facility] [facility] End: 05-12-2020 Hepatitis C RNA, quantitative, PCR Hepatitis C RNA, quantitative, PCR Lab Routine Once for 1 Occurrences starting 05/12/2020 until 05/12/2020 [place] Comment on above: Once for 1 Occurrenc es starting 05/12/2020 until 05/12/2020 Hepatitis C RNA, quantitative, PCR [place], [place] End: 10-27-2020 Hepatitis C RNA, quantitative, PCR Hepatitis C RNA, quantitative, PCR Lab Routine Once for 1 Occurrences starting 10/27/2020 until 10/27/2020 [facility] Work Phone: Comment on above: Once for 1 Occurrenc es starting 10/27/2020 until 10/27/2020 Human papilloma viru s DNA [Presence] in Unspecified specimen by Probe with amplification HPV DNA probe, amplified Microbiology Routine Well woman exam with routine gynecological exam Ordered: 12/08/2024 [facility] Comment on above: Ordered: 12/08/2024 End: 10-13-2025 Lipid 1996 panel - Serum or Plasma Lipid profile Lab Routine Blood tests for routine general physical examination 1 Occurrences starting 10/13/2024 until 10/13/20[facility] on above: 1 Occurrences starti ng 10/13/2024 until 10/13/2025 Lipid 1996 panel - S daphne or Plasma Lipid profile Lab Routine Blood tests for routine general physical examination 10/13/2024 9:51 PM [facility]T [facility] End[facility] 10-13-2025 Thyrotropin [Units/volume] in Serum or Plasma TSH Lab Routine Blood tests for routine general physical examination 1 Occurrences starting 10/13/2024 until 10/13/2025 [facility] Comment on above: 1 Occurrences starti ng 10/13/2024 until 10/13/2025 Thyrotropin [Units/volume] in Serum or Plasma TSH Lab Routine Blood tests for routine general physical examination 10/13/2024 9:51 PM EDT [facility] End: 07-15-2025 Vitamin D 25 hydroxy Vitamin D 25 hydroxy Lab Routine Vitamin D deficiency 1 Occurrences starting 07/14/2024 until 07/15/2025 [employer] Work Phone: Comment on above: 1 Occurrences starti ng 07/14/2024 until 07/15/2025 Immunizations Immunization Date Immunization Notes Care Provider Jordan walter 12-20-2009 tetanus toxoid, redu jarrett diphtheria toxoid, and acellular pertussis vaccine, adsorbed Li Deutsch [facility] Payers Date Payer Category Payer Medicaid [id number] 2019 Unknown 2018 Unknown [id number] 1.2 [id number] 1987 Unknown [id number] 2.16.8 40.1.809193.3.579.2.196 1987 Unknown [id number] 2.16.8 40.1.970863.3.579.2.173 1987 Unknown [id number] 2.16.8 40.1.439099.3.579.2.173 1987 Unknown [id number] 2.16.8 40.1.493875.3.579.2.173 1987 Unknown [id number] 2.16.84 0.1.900384.3.579.2.593 1987 Unknown [id number] 2.16.84 0.1.990243.3.579.2.593 1987 Unknown [id number] 2.16.84 0.1.951097.3.579.2.593 1987 Unknown [id number] 2.16.84 0.1.101153.3.579.2.593 1987 Unknown [id number] 2.16.84 0.1.678742.3.579.2.593 1987 Unknown [id number] 2.16.8 40.1.469581.3.579.2.727 1987 Unknown [id number] 2.16. 840.1.927348.3.579.2.1286 1987 Unknown [id number] 2.16. 840.1.842716.3.579.2.1286 1987 Unknown [id number] 2.16. 840.1.914254.3.579.2.1286 1987 Unknown [id number] 2.16. 840.1.315619.3.579.2.1286 1987 Unknown [id number] 2.16. 840.1.555230.3.579.2.1286 1987 Unknown [id number] 2.16. 840.1.009226.3.579.2.1286 1987 Unknown [id number] 2.16. 840.1.047829.3.579.2.1286 1987 Unknown [id number] 2.16.8 40.1.433269.3.579.2.1259 1987 Unknown [id number] 2.16.8 40.1.371383.3.579.2.1259 1987 Unknown [id number] 2.16.84 0.1.346349.3.579.2.1259 1987 Unknown [id number] 2.16.84 0.1.275170.3.579.2.1259 1959 Medicaid [id number] 1959 Unknown [id number] 1959 Unknown [id number] Social History Date Type Detail Facility Tobacco smoking stat [facility] [place] Start: 1987 Sex Assigned At Not on file M [place], [place] Tobacco smoking status No Smokin g Status Entered [facility] Start: 06-14-2023 End: 01-07-2024 Sex Assigned At Female [facility] Start: 11-06-2022 End: 11-06-2023 Tobacco smoking status TXIS Smokes tobacco daily [facility] History of tobacco use Cigarette Smoker P [facility] Start: 11-06-2022 End: 01-07-2024 Cigarettes smoked current (pack per day) - Reported 0.5 [facility] Start: 11-06-2022 End: 11-06-2023 Tobacco use and exposure Smokeless tobacco non-user [facility] Start: 06-14-2023 End: 09-08-2024 Alcoholic beverage intake Ex-drinker (finding) [facility] How hard is it for y ou to pay for the very basics like food, housing, medical care, and heating Hard [facility] Adolescent depressio n screening assessment 0 [facility] Start: 02-04-2015 Sex Female (finding) [facility] Start: 01-07-2024 End: 12-08-2024 Alcoholic beverage intake Lifetime non-drinker (finding) [facility] Start: 1987 Sex assigned at Female N [facility] Start: 09-25-2023 Gender identity Identifies as female gender (finding) [facility] Clinical Notes 06-08-2022 to 03-19-2025 Elal Kothari - 03/19/2025 9:10 AM EDTTelephone Encounter - Polly Bryant APRN-DAISY - 01/20/2025 12:26 AM EDTTelephone Encounter - Felicitas Gamino CMA - 01/20/2025 12:26 AM EDTPatient Instructions Note Date & Type Note Facility 03-19-2025 History of Present illness Narrative Reason for Appointment: Patient ID: Rick Hsu is a 39 y.o. female who presents for Pre-op Visit Patient presents today for Pre Op appointment. Patient is scheduled to undergo Total Abdominal Hysterectomy, possible BSO, possible cystoscopy on 04-15-[address] Stanley at [facility]. MEDICATIONS Current Outpatient Medications Medication Instructions ARIPiprazole (Abilify) 5 MG tablet 1 tablet, Every morning cholecalciferol (Vitamin D-3) 125 MCG (5000 UT) capsule 1 capsule, Every morning escitalopram (LEXAPRO) 10 mg, Daily RT fexofenadine (SHELLY) 180 mg, Daily RT hydroCHLOROthiazide (HYDRODIURIL) 12.5 [...] may repeat ... (REFER TO PRESCRIPTION NOTES). traZODone (DESYREL) 100 mg, Nightly ALLERGIES Allergies Allergen Reactions Penicillins Unknown PROBLEMS Active Ambulatory Problems Diagnosis Date Noted Menorrhagia with regular cycle 01/07/2024 Endometriosis 09/22/2024 Resolved Ambulatory Problems Diagnosis Date Noted No Resolved Ambulatory Problems Past Medical History: Diagnosis Date Ectopic (HHS-HCC) High blood pressure Kidney stones HISTORY PAST MEDICAL HISTORY SOCIAL HISTORY Past Medical History: Diagnosis Date Ectopic (HHS-HCC) High blood pressure Kidney stones Social History Tobacco Use Smoking [...] Cardiovascular: Negative. Gastrointestinal: Negative. Genitourinary: Positive for pelvic pain, vaginal bleeding and vaginal pain. Musculoskeletal: Negative. Skin: Negative. Neurological: Negative. [...] nursing note reviewed. Exam conducted with a proposal review analyst present. Vitals: Estimated body mass index is 43.42 kg/m as calculated from the following: Height as of 11/06/23: 5' 1 . Weight as of 12/08/24: 229 lb 12.8 oz. BP: No LMP recorded. ASSESSMENT & PLAN ICD-10-CM 1. Pre-op examination Z01.818 2. Pelvic pain R10.2 3. Dyspareunia in female N94.10 4. Dysmenorrhea N94.6 5. Menorrhagia with regular cycle N92.0 Pre Op: Patient is doing well but has complaints of menorrhagia, dyspareunia, dysmenorrhea and pelvic pain. I have discussed conservative management vs. surgical management with the patient in detail and patient desires surgical management at this time. Patient will undergo Total Abdominal Hysterectomy, possible BSO, possible cystoscopy on 04-15-25. Surgical consents were signed, mmc was reviewed, and patient is to proceed to [facility] OR. Follow Up: Patient is to follow up at 1 & 6 weeks post operative to assess proper healing and recovery from procedure. Documented by Aurelio Stanley DO documented in this encounter [facility] 01-20-2025 Miscellaneous Notes Pt needs to choose provider and set up appt, due for lab re-check Left message to call back and schedule with provider of her choice documented in this encounter [facility] 01-20-2025 Telephone encounter Note Pt needs to choose provider and set up appt, due for lab re-check [facility] 01-20-2025 Telephone encounter Note Left message to call back and schedule with provider of her choice [facility] 12-08-2024 History of Present illness Narrative Reason for Appointment: Patient ID: Rick Hsu is a 39 y.o. female who presents for Well Women Visit Patient presents today for Annual Exam. MEDICATIONS Current Outpatient Medications Medication Instructions ARIPiprazole (Abilify) 5 MG tablet 1 tablet, Every morning cholecalciferol (Vitamin D-3) 125 MCG (5000 UT) capsule 1 capsule, Every morning escitalopram (LEXAPRO) 10 mg, Daily RT fexofenadine (SHELLY) 180 mg, Daily RT hydroCHLOROthiazide (HYDRODIURIL) 12.5 [...] may repeat ... (REFER TO PRESCRIPTION NOTES). traZODone (DESYREL) 100 [...] nursing note reviewed. Exam conducted with a proposal review analyst present. Vitals: Estimated body mass index is 43.42 kg/m as calculated from the following: Height [...] difficulty. Patient advised to reach out to remote inpatient coder if she decides to proceed to OR [...] Aurelio Stanley DO documented in this encounter [facility] 11-18-2024 History of Present illness Narrative Attempted to notify patient regarding abnormal labs. Unable to reach. LISA Walker 11/18/24 1310 documented in this encounter [facility] 10-13-2024 History of Present illness Narrative Images from the original note were not included. [address] [address] SUBJECTIVE: Patient ID: Farideh Hsu is a 39 y.o. female. Chief Complaint Patient presents with Annual Exam Presents for annual physical. She is . Currently is not working but is looking for a job. She is 1/2 PPD smoker for greater than 20 yeas. Concern today is she is having trouble sleeping through the night. She is not sure if it may be anxiety related as she has been trying to look for job. The following portions of the patient's history [...] bruise/bleed easily. Psychiatric/Behavioral: Negative. PHYSICAL EXAMINATION: Vitals: 10/13/24 1516 BP: 128/78 BP Site: Left Arm BP Postition: Sitting BP CUFF SIZE: L (13-17 inches) Pulse: (!) 122 Resp: 16 Temp: 37.4 C (99.3 F) TempSrc: Oral SpO2: 98% Weight: 102.7 kg (226 lb 6.4 oz) Height: 154.9 cm (5' 0.98 ) Patient noted to have elevated BMI [...] normal. ASSESSMENT/PLAN: Farideh was seen today for annual exam. Diagnoses and all orders for this visit: Annual physical exam Insomnia, unspecified type - traZODone (DESYREL) 100 mg tablet; Take 1 tablet (100 mg total) by mouth nightly. Blood tests for routine general physical examination - Comprehensive metabolic panel; Future - CBC auto differential; Future - Lipid profile; Future - Hemoglobin A1c; Future - TSH; Future Body mass index is 42.8 kg/m . Patient noted to have elevated BMI and the following intervention(s) were applied: Discussed current weight today. Consider healthy food choices, portion control. Avoid sugary beverages and high concentrated sweets. Routine exercise regimen encouraged. Insomnia. Start Trazodone 100 mg oral nightly She has cardiac cath lab radiology technologist, Dr. Stanley. Recently had exploratory lap for increased heavier menses. Next step is discussion about hysterectomy. Depression: Not at risk (06/14/2023) PHQ-2 PHQ-2 Score: 0 Patient is a current smoker, smoking cessation discussed today in office. He/She is not interested at this time ALL QUESTIONS ANSWERED Total time spent was 30 minutes: Preparing to see the patient (e.g., review of tests) Obtaining and/or reviewing separately obtained history Performing a medically appropriate examination and/or evaluation Counseling and educating the patient/family/caregiver Ordering medications, tests, or procedures Follow-up: 6 months Bipolar depression, HTN LISA Walker 10/13/24 1558 documented in this encounter [facility] 10-13-2024 Instructions LISA Walker - 10/13/2024 3:20 PM EDT Are You Ready To Kick The Habit? Free Tobacco Cessation Resources [facility] Services [facility] provide all employees with free tobacco cessation services that include: Counseling to understand nicotine addiction Education about medications that can help you successfully quit Assistance with developing a plan to quit Call to set up an individual appointment or find out when group classes will be held: [facility]: [phone] [facility]: [phone] [facility]: [phone] [facility]: [phone] Quit Smoking Action Plan and Resources [facility] offers an eight-week, online smoking cessation plan to all [facility] employees, regardless of whether [employer] is your medical insurance provider. Go to www.Pharnextca.org/employeewelln ess and click the Health Risk Assessment and Resources link to get started. In the [employer] menu, click Action Plans instead of Health Risk Assessment to access the Quit Smoking Action Plan. Additional smoking cessation resources are also available to all [facility] employees on the [employer] web page at www.Edupath/quits ivone. [place] Tobacco Cessation Program If [employer] is your medical insurance provider, there are more free resources available to you, including: No copays or deductibles on local tobacco cessation counseling services to help you quit Prescription assistance for tobacco cessation medications to help you quit For details about the tobacco cessation program available to [employer] members, go to www.Edupath (Search: Tobacco Cessation Program). [place] Tobacco Quit Line 4-171-OXWS-NOW ( ) is a toll-free, telephonic service that helps [place] residents quit smoking and using tobacco. It is staffed by experts who tailor a quit plan for you and provide you with advice. [place] Tobacco Quit Line 3-831-JMAA-NOW ( ) is a toll-free, telephonic service that helps [place] residents quit smoking and using tobacco. It is staffed by experts who tailor a quit plan for you and provide you with advice. Two weeks of nicotine replacement therapy may be provided at no charge, if needed. Additional Resources These national organizations also offer free information and resources to help you quit tobacco: [place] [employer]--www.cancer.org/healthy/s tayawayfromtobacco [place] [employer]--www.heart.org (Search: Quit Smoking) Centers for Disease Control and Prevention--www.cdc.gov/tobacco [place] [employer]--www.lungusa.org The following attachments cannot be sent through Care Everywhere.Lowering Your Risk of Colon Cancer ([place])Yearly Physical for Adults ([place])documented in this encounter [facility] 09-22-2024 History of Present illness Narrative Reason for Appointment: Patient ID: Rick Hsu is a 39 y.o. female who presents for Post-op Visit Patient presents today for Follow up appointment to discuss results. MEDICATIONS Current Outpatient Medications Medication Instructions ARIPiprazole [...] SYSTEMS Review of Systems: Review of Systems All other systems reviewed and are negative. OBJECTIVE Objective: Physical Exam Constitutional: Appearance: Normal appearance. She is well-developed. Genitourinary: Vulva normal. Cardiovascular: Rate and Rhythm: Normal rate and regular rhythm. Pulmonary: Effort: Pulmonary effort is normal. Breath sounds: Normal breath sounds. Abdominal: General: A surgical scar is present. Bowel sounds are normal. There is no [...] nursing note reviewed. Exam conducted with a proposal review analyst present. Vitals: Estimated body mass index is 41.46 kg/m as calculated from the following: Height as of 11/06/23: 5' 1 . Weight as of this encounter: 219 lb 6.4 oz. BP: 130/80 No LMP recorded. ASSESSMENT & PLAN ICD-10-CM 1. Postoperative follow-up Z09 2. Endometriosis N80.9 Patient and spouse present for post-op appointment. Informed patient that her surgery showed Endometriosis. Informed patient that if she has to require a hysterectomy if done locally then she would have done abdominally. If patient desires to have done robotically, then she could be referred to Dr. Dozier in [place]. Patient to monitor symptoms after surgery as she is having discomfort. If patient starts to have symptoms again then she is to reach out to office and surgical procedure could be discussed. Patient to return to clinic for routine annual appointment. Documented by Yoon Baker LPN on behalf of: Aurelio Stanley DO documented in this encounter [facility] 09-11-2024 History of Present illness Narrative Patient was here for her blood pressure to be checked. documented in this encounter [facility] 09-09-2024 Miscellaneous Notes [facility] called for a preop clearance , I seen she comes back . Avtar send that as soon as you get it ? fax# [phone] I have a clearance letter which needs faxed. done documented in this encounter [facility] 09-09-2024 Telephone encounter Note [facility] called for a preop clearance , I seen she comes back . Canyou send that as soon as you get it ? fax# [phone] [facility] 09-09-2024 Telephone encounter Note I have a clearance letter which needs faxed. [facility] 09-09-2024 Telephone encounter Note done [facility] 09-08-2024 History of Present illness Narrative Images from the original note were not included. [address] [place] [address] SUBJECTIVE: Patient ID: Farideh Hus is a 39 y.o. female. Chief Complaint [...] Walker 09/08/24 1441 documented in this encounter [facility] 08-19-2024 History of Present illness Narrative Reason for Appointment: Patient ID: Rick Hsu is a 39 y.o. female who presents for Pre-op Visit Patient presents today for Pre Op appointment. Patient is scheduled to undergo Diagnostic Laparoscopy, possible BREANN, possible FOE, possible BSO on 09/12/[address] Stanley at [facility]. MEDICATIONS Current Outpatient Medications Medication Instructions ARIPiprazole [...] nursing note reviewed. Exam conducted with a proposal review analyst present. Vitals: Estimated body mass index is [...] reviewed, and patient is to proceed to [facility] OR. Follow Up: Patient is to follow up between 1-2 weeks post operative to assess proper healing and recovery from procedure. Documented by Bessie Ely LPN on behalf of: Aurelio Stanley DO documented in this encounter [facility] 07-14-2024 History of Present illness Narrative Images from the original note were not included. [address] [place] [address] SUBJECTIVE: Patient ID: Farideh Hsu is a 39 y.o. female. Chief Complaint [...] visit: Bipolar affective disorder, currently depressed, mild ([facility]) - ARIPiprazole (ABILIFY) 5 mg [...] Walker 07/14/24 1331 documented in this encounter [facility] 02-12-2024 Miscellaneous Notes ----- Message from LISA Rodriguez sent at 02/12/2024 12:24 PM EDT ----- No future ketty scheduled. Overdue for wellness, follow up LM on VM Scheduled documented in this encounter [facility] 02-12-2024 Telephone encounter Note ----- Message from LISA Rodriguez sent at 02/12/2024 12:24 PM EDT ----- No future ketty scheduled. Overdue for wellness, follow up [facility] 02-12-2024 Telephone encounter Note LM on VM [facility] 02-12-2024 Telephone encounter Note Scheduled [facility] 06-08-2022 Note Indication: Right fl ank pain. 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 Urinary tract infection, site unspecified Nephrolithiasis Calculus of kidney Vitamin D deficiency- Primary Bipolar affective disorder, currently depressed, mild ([facility]) Bipolar I disorder, most recent episode (or current) depressed, mild Chronic seasonal allergic rhinitis Nephrolithiasis Calculus of kidney Lumbar back pain with radiculopathy affecting left lower extremity Migraine without aura and without status migrainosus, not intractable [facility] Diagnosis 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 Urinary tract infection, site unspecified Nephrolithiasis Calculus of kidney Vitamin D deficiency- Primary documented in [facility]* Diagnosis Bipolar affective disorder, currently depressed, mild ([facility]) Bipolar I disorder, most recent episode (or current) depressed, mild [facility] Diagnosis 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 Urinary tract infection, site unspecified Nephrolithiasis Calculus of kidney Lumbar back pain with radiculopathy affecting left lower extremity [facility] Diagnosis Lumbar back pain with radiculopathy affecting left lower extremity documented in this encounter [facility]* Diagnosis Lumbar back pain with radiculopathy affecting left lower extremity documented in [facility]* Diagnosis Lumbar back pain with radiculopathy affecting left lower extremity Vitamin D deficiency documented [facility]* Diagnosis Lumbar back pain with radiculopathy affecting left lower extremity Bipolar affective disorder, currently depressed, mild ([facility]) Bipolar I disorder, most recent episode (or current) depressed, mild [facility] Diagnosis 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 Urinary tract infection, site unspecified Nephrolithiasis Calculus of kidney Bipolar affective disorder, currently depressed, mild ([facility]) Bipolar I disorder, most recent episode (or current) depressed, mild Canker sores oral Oral aphthae Vitamin D deficiency Chronic seasonal allergic rhinitis 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 Nephrolithiasis Calculus of kidney Lumbar back pain with radiculopathy affecting left lower extremity Migraine without aura and without status migrainosus, not intractable [facility] Diagnosis Pre-op examination Pelvic pain in female Unspecified symptom associated with female genital organs documented in this encounter [facility]* Diagnosis 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 Urinary tract infection, site unspecified Nephrolithiasis Calculus of kidney Migraine without aura and without status migrainosus, not intractable documented in this encounter [facility]* Diagnosis 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 Urinary tract infection, site unspecified Nephrolithiasis Calculus of kidney Benign essential HTN- Primary [facility]* Diagnosis Postoperative follow-up Follow-up examination, following unspecified surgery Endometriosis Endometriosis, site unspecified documented in this encounter [facility] note* Diagnosis 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 Urinary tract infection, site unspecified Nephrolithiasis Calculus of kidney Lumbar back pain with radiculopathy affecting left lower extremity documented in this encounter [facility]* Diagnosis 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 Urinary tract infection, site unspecified Nephrolithiasis Calculus of kidney Annual physical exam- Primary Routine general medical examination at a health care facility Insomnia, unspecified type Blood tests for routine general physical examination Laboratory examination ordered as part of a routine general medical examination documented in this encounter [facility]* Diagnosis 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 Urinary tract infection, site unspecified Nephrolithiasis Calculus of kidney Migraine without aura and without status migrainosus, not intractable documented in this encounter [facility]* Diagnosis 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 Urinary tract infection, site unspecified Nephrolithiasis Calculus of kidney Leukocytosis, unspecified type- Primary documented in this encounter [facility]* Diagnosis 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 Urinary tract infection, site unspecified Nephrolithiasis Calculus of kidney Bipolar affective disorder, currently depressed, mild ([facility]) Bipolar I disorder, most recent episode (or current) depressed, mild documented in this encounter [facility]* Diagnosis Well woman exam with routine gynecological exam Routine gynecological examination Pelvic pain in female Unspecified symptom associated with female genital organs Menorrhagia with regular cycle [facility] Diagnosis 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 Urinary tract infection, site unspecified Nephrolithiasis Calculus of kidney Nephrolithiasis Calculus of kidney Bipolar affective disorder, currently depressed, mild ([facility]) Bipolar I disorder, most recent episode (or current) depressed, mild Lumbar back pain with radiculopathy affecting left lower extremity [facility] Diagnosis 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 Urinary tract infection, site unspecified Nephrolithiasis Calculus of kidney Insomnia, unspecified type [facility]* Diagnosis Pre-op examination Pelvic pain Dyspareunia in female Dysmenorrhea Menorrhagia with regular cycle documented in this encounter [facility] Discharge instructions No data available for this section [facility] InstructionsNot on filedocumented in this encounter [facility]* Attachments The following attachments cannot be sent through Care Everywhere. * Bipolar disorder (Australian) [facility]ructions[facility] on file documented in this [facility] System[facility]ructionsNot on file documented in this encounter[facility] SystemInstructionsNot on file documented in this encounter[facility] SystemInstructionsNot on file documented in this encounter[facility] SystemInstructionsNot on file documented in this encounter[facility] SystemInstructionsNot on file documented in this encounterPro[facility]ica [facility] SystemInstructionsNot on file documented in this encounterPro[facility] SystemInstructions* Attachments The following attachments cannot be sent through Care Everywhere. * High blood pressure in adults (Australian) documented in [facility] SystemInstructionsNot on file documented in this encounterPro[facility]ica Health SystemInstructionsNot on file documented in this encounterPro[facility]ica Health SystemInstructionsNot on file documented in this [facility]Pro[facility] SystemProgress note No data available for this section [facility] Summary Purpose Family History [...] Course Note Admission Information Tara t: Farideh Hsu : 1985 Admission date: 12/02/2019 Discharge date: 12/03/2019 CODE STATUS: Full code PCP: unknown Consult: Circulation Clerk Diagnoses: 1. Heroin addiction 2. Tobacco [...] days. Patient is to follow-up tomorrow with [facility]'s case management rn and has further follow-up appointments to schedule her outpatient Vivitrol injection. All questions have been answered patient is being (more content not included)... Additional Source Comments INFORMATION SOURCE (unrecogn ized section and content) DATE CREATED AUTHOR 01/27/2020 [facility] DATE CREATED AUTHOR AUTHOR'S ORGANIZ ATION 11/02/2020 [facility] DATE CREATED AUTHOR AUTHOR'S ORGANIZ ATION 10/03/2022 [facility] DATE CREATED AUTHOR AUTHOR'S ORGANIZ ATION 02/22/2023 [facility] DATE CREATED AUTHOR AUTHOR'S ORGANIZ ATION 10/15/2024 [facility] DATE CREATED AUTHOR AUTHOR'S ORGANIZ ATION 10/15/2024 [facility] DATE CREATED AUTHOR AUTHOR'S ORGANIZ ATION 11/28/2024 [facility] DATE CREATED AUTHOR AUTHOR'S ORGANIZ ATION 03/20/2025 [facility] dical Specialists EPIC Patient Care team informatio n (unrecognized section and content) Electronic News Gathering Camera Person Relationship Specialty Start Date End Date Rony Cox, TRUST MANAGER-FAMILY COUNSELOR [address] [place] [address] PCP - General Family Medicine 11/03/22 Electronic News Gathering Camera Person Relationship Specialty Start Date End Date [facility]ony [facility] [address] [place] [address] PCP - General Family Medicine 11/03/22 Electronic News Gathering Camera Person Relationship Specialty Start Date End Date Rony Cox [facility] [address] [place] [address] PCP - General Family Medicine 11/03/22 Electronic News Gathering Camera Person Relationship Specialty Start Date End Date Rony Cox [facility] [address] [place] [address] PCP - General Family Medicine 11/03/22 Electronic News Gathering Camera Person Relationship Specialty Start Date End Date Rony Cox [facility] [address] [place] [address] PCP - General Family Medicine 11/03/22 Electronic News Gathering Camera Person Relationship Specialty Start Date End Date Rony Cox [facility] [address] [place] [address] PCP - General Family Medicine 11/03/22 Electronic News Gathering Camera Person Relationship Specialty Start Date End Date Rony Cox [facility] [address] [place] [address] PCP - General Family Medicine 11/03/22 Electronic News Gathering Camera Person Relationship Specialty Start Date End Date Rony Cox [facility] [address] [place] [address] PCP - General Family Medicine 11/03/22 Electronic News Gathering Camera Person Relationship Specialty Start Date End Date Rony Cox [facility] [address] [place] [address] PCP - General Family Medicine 11/03/22 Electronic News Gathering Camera Person Relationship Specialty Start Date End Date Rony Cox [facility] [address] [place] [address] PCP - General Family Medicine 11/03/22 Electronic News Gathering Camera Person Relationship Specialty Start Date End Date Rony Cox [facility] [address] [place] [address] PCP - General Family Medicine 11/03/22 Electronic News Gathering Camera Person Relationship Specialty Start Date End Date Rony Cox [facility] [address] LEFT PM 12/29/24 [place] [address] PCP - General Family Medicine 11/03/22 01/21/25 Electronic News Gathering Camera Person Relationship Specialty Start Date End Date Rony Cxo [facility] [address] LEFT PM 12/29/24 [place] [address] PCP - General Family Medicine 11/03/22 01/21/25 Reason for Visit (unrecogniz ed section and content) Reason Comments Med Refill Reason Comments discuss medication Reason Onset Date Comments Med Refill 02/12/2024 Reason Onset Date Comments Med Refill 06/09/2024 Reason Comments Pre-op Visit Reason Comments Hypertension At preop Reason Comments Post-op Visit Reason Comments Annual Exam Reason Comments Well Women Visit FOR RECORDS PERTAINING TO PATIENTS WHO ARE [...] BE BASED ON THE PRIMARY CLINICAL RECORDS. [facility] [employer] provides no warranty or guarantee of the accuracy or completeness of information in this document.
[2025-04-06 09:33] LABS: Hematocrit 38.1 % (36.0-48.0); Hemoglobin 12.9 g/dL (12.0-16.0); Immature Granulocytes Abs Auto 0.05 10^3/uL (0.00-0.03); Immature Granulocytes Pct Auto 0.4 % (0.0-0.5); Lymphocytes Absolute Auto 2.5 10^3/uL (1.2-3.8); Mean Corpuscular HGB Conc 33.9 g/dL (29.9-35.2); Mean Corpuscular Hemoglobin 29.5 pg (26.7-34.0); Mean Corpuscular Volume 87.0 fL (81.0-99.0); Platelet Count 197 10^3/uL (150-450); Red Blood Count 4.38 10^6/uL (4.20-5.40); White Blood Count 12.2 10^3/uL (4.0-11.0)
[2025-04-06 09:42] LABS: INR 1.02; Partial Thromboplastin Time 30.3 sec (22.3-36.2); Prothrombin Time 10.8 sec (9.0-11.6)
[2025-04-06 10:11] LABS: Alanine Aminotransferase 74 U/L (14-59); Albumin Globulin Ratio 0.8; Albumin Level 3.3 g/dL (3.4-5.0); Alkaline Phosphatase 162 U/L (46-116); Anion Gap 11.0; Aspartate Amino Transferase 27 U/L (15-37); Blood Urea Nitrogen 18.0 mg/dL (7.0-18.0); Calcium 8.5 mg/dL (8.5-10.1); Carbon Dioxide 26.7 mmol/L (21.0-32.0); Chloride 103 mmol/L (98-107); Estimated GFR (African America >60 (>=60 mL/min/1.73m^2); Estimated GFR (Non-African Ame >60 (>=60 mL/min/1.73m^2); Globulin 4.0 g/dL; Glucose 84 mg/dL (74-106); Potassium 3.7 mmol/L (3.5-5.1); Sodium 137 mmol/L (136-145); Total Protein 7.3 g/dL (6.4-8.2)
== END 2025-04-06 08:46 | disposition home or self-care (01) ==
PROVIDERS: PCP Nurse Practitioner; Visit Provider Obstetrics & Gynecology
DX: Z01.810 Encounter for preprocedural cardiovascular examination (principal); Z01.812 Encounter for preprocedural laboratory examination; N92.0 Excessive and frequent menstruation with regular cycle; N94.10 Unspecified dyspareunia; N94.6 Dysmenorrhea, unspecified; R10.2 Pelvic and perineal pain
CPT/HCPCS: 36415; 80048; 80076; 85025; 85610; 85730; 86850; 86900; 86901; 93005

== ENCOUNTER 2025-04-15 15:15 | Inpatient (IN) | payer MEDICAID, SELFPAY ==
--- OUTSIDE RECORDS SUMMARY | 2025-02-03 10:00 | XMS_ITS ---
Author Organization [facility] Address [address] [place] [address] Care Team Providers Care Carpenter Cradle And Dolly Name Role Phone Dr. Manny Singh Primary Care Provider [phone] Marisela Weinstein [phone] REASON FOR VISIT FILLING Social History Sex Assigned At : Social History Observation Description Sex Assigned At Female Encounters Encounter Location Date Provider Diagnosis [facility] [address] [place] [address] 02/03/2025 Marisela Holt Plan Of Treatment Next Appt Details Provider Name:Izabela Morton, 11:30:00 AM, [address] [place], [address], Provider Name:Earlene Trevino , 06/15/2025 08:00:00 AM, [address] [place], [address], Provider Name:Yvonne pollard, 09/01/2025 02:30:00 PM, [facility] [place], [address], Progress Notes * SHERI HSUB:1984 (39 yo F)Acc No.[id number]:02/03/2025 Patient: Erwin LUISTORY LIAO Provider: Carla Holt :1985 A ge:39 Y S ex:Female Date:02/03/2025 Address:[facility] [address] , [place], [id number] Pcp:Dr. Manny Singh Subjective: * Chief Complaints: * F ILLING Billing Information: * Procedure Codes: * Electronic signature of Bharath Holt DMD on 04/15/2025 at 06:11 AM EDT Sign off status: Pending * Provider: Carla Holt Date: 0 02/03/2025 Generated for Zhen lazcano/Brianne/Jose Martin on: 1 06:11 AM EDT
--- OUTSIDE RECORDS SUMMARY | 2025-02-27 10:00 | XMS_ITS ---
Author Organization [facility] Address [address] [place] [address] Care Team Providers Care Spray Maker Name Role Phone Dr. Manny Singh Primary Care Provider [phone] Yvonne Hernandez [phone] REASON FOR VISIT EST CARE Social History Sex Assigned At : Social History Observation Description Sex Assigned At Female Encounters Encounter Location Date Provider Diagnosis [facility] [address] [place] [address] 02/27/2025 Yvonne Cox Plan Of Treatment Next Appt Details Provider Name:Izabela Morton, 11:30:00 AM, [address], [place], [address], Provider Name:Earlene Trevino , 06/15/2025 08:00:00 AM, [address] [place], [address], Provider Name:Yvonne pollard, 09/01/2025 02:30:00 PM, [address] [place], [address], Progress Notes * SHERI HSUB:1984 (39 yo F)Acc No.[id number]:02/27/2025 Progress Notes Patient: JAMES CASSIDYA Provider: Liana Cox :1985 A ge:39 Y S ex:Female Date:02/27/2025 Address:[facility] [address] [place], [id number] Pcp:Dr. Manny Singh Subjective: * Chief Complaints: * E ST CARE * Electronic signature of Bonnie Cox , SOURCE INSPECTOR-BC, CABIN SUPERVISOR.SOURCE [email or web address] on 04/15/2025 at 06:11 AM EDT Sign off status: Pending * Provider: Liana Cox Date: 0 02/27/2025 Generated for Zhen lazcano/Brianne/Jose Martin on: 1 06:11 AM EDT
--- OUTSIDE RECORDS SUMMARY | 2025-03-03 11:30 | XMS_ITS ---
Author Organization [facility] Address [address] [place] [address] Care Team Providers Care Associate Financial Representative Name Role Phone Dr. Manny Singh Primary Care Provider [phone] Yvonne Hernandez [phone] REASON FOR VISIT ESTABLISH Social History Sex Assigned At : Social History Observation Description Sex Assigned At Female Encounters Encounter Location Date Provider Diagnosis [facility] [address] [place] [address] 03/03/2025 Yvonne Cox Plan Of Treatment Next Appt Details Provider Name:Izabela Morton, 11:30:00 AM, [address] [place], [address], Provider Name:Earlene Trevino , 06/15/2025 08:00:00 AM, [address] [place], [address], Provider Name:Yvonne pollard, 09/01/2025 02:30:00 PM, [address] [place], [address], Progress Notes * SHERI HSUB:1984 (39 yo F)Acc No.[id number]:03/03/2025 Progress Notes Patient: Erwin LUISRADHAJAMES GANA Provider: Liana Cox :1985 A ge:39 Y S ex:Female Date:03/03/2025 Address:[facility] [address] , [place], [id number] Pcp:Dr. Manny Singh Subjective: * Chief Complaints: * E STABLISH * Medical History: Nephrolithiasis Menorrhagia Endometriosis Billing Information: * Procedure Codes: * Electronic signature of Bonnie Cox , WOOL AND PELT GRADER-BC, WHITEPRINTING MACHINE OPERATOR.WOOL AND PELT GRADER.[email or web address] on 04/15/2025 at 06:11 AM EDT Sign off status: Pending * Provider: Liana Cox Date: 0 03/03/2025 Generated for Zhen lazcano/Brianne/Darlenesmitting on: 1 06:11 AM EDT
--- OUTSIDE RECORDS SUMMARY | 2025-03-20 06:10 | XMS_ITS ---
Author Organization [facility] Address [address] [place] [address] Care Team Providers Care Insurance Broker Name Role Phone Dr. Manny Singh Primary Care Provider Izabela Morton [phone] REASON FOR VISIT FILLING Social History Sex Assigned At : Social History Observation Description Sex Assigned At Female Encounters Encounter Location Date Provider Diagnosis [facility] [address] [place] [address] 03/20/2025 Izabela Morton Dental caries on pit and fissure surface penetrating into dentin K02.52 Assessments Encounter Date Diagnosis (ICD Code) Assessment Notes Treatment Notes Treatment Clinical Notes Section Notes 03/20/2025 Dental caries on pit and fissure surface penetrating into dentin (ICD-10 - K02.52) Plan Of Treatment Next Appt Details Provider Name:Izabela Morton, 11:30:00 AM, [address] [place], [address], Provider Name:Earlene Uriel , 06/15/2025 08:00:00 AM, [place], [address], Provider Name:Yvonne pollard, 09/01/2025 02:30:00 PM, [place], [address], Progress Notes * SHERI HSUB:1984 (39 yo F)Acc No.[id number]:03/20/2025 Patient: TORY CASSIDY Provider: Lamonte Morton :1985 A ge:39 Y S ex:Female Date:03/20/2025 Address:[address] [place] [address] , [address] , [place], [id number] Pcp:Dr. Manny Singh Subjective: * Chief Complaints: * F ILLING Objective: * Dental Examination/Plan : Tooth / Surface Status Description Provider 18 TP CROWN - PORCELN FUSED HI SOLER METL EY 03/20/2025 Assessment: * Assessment: 1. D ental caries on pit and fissure surface penetrating into dentin - K02.52 (Primary) ? Billing Information: * Procedure Codes: * Electronic signature of uLcía Morton , [id number] on 04/15/2025 at 06:11 AM EDT Sign off status: Pending * Provider: Lamonte Morton Date: 0 03/20/2025 Generated for Zhen lazcano/Brianne/Evetteitting on: 1 06:11 AM EDT
[2025-04-06 09:15] VITALS: BP 130/89; PULSE 104; TEMP 36.3; O2SAT 96; BMI 42.2
[2025-04-15] VITALS (25 sets, daily range): BP systolic 111–145; BP diastolic 69–94; PULSE 98–117; TEMP 36.2–37.3; O2SAT 83–96; BMI 42.1
--- OUTSIDE RECORDS SUMMARY | 2025-04-15 06:11 | XMS_ITS | Encounter Summary ---
Author Organization [facility] Address [address] [place] [address] Care Team Providers Care Automation Sales Manager Name Role Phone Unavailable Primary Care Provider Unavailabl e Encounter Details Date Type Department Care Team (Late st Contact Info) Description 04/06/2025 Clinisync Result Encounter [facility] External Department Unsolicited Harsh Stanley DO [address] [place], [place] [id number] Social History Tobacco Use Types Packs/Day Years [...] Care Team (Late st Contact Info) Description 04/22/2025 10:30 AM EDT Office Visit SANDRO MARTINEZ [address] [place] [address] [place] [phone] Celeste Camacho PA [address] [place], [place] [address] 05/27/2025 9:30 AM EST Office Visit SANDRO MARTINEZ [address] [place] [address] Celeste Camacho, PA [address] [place], [facility] 12/14/2025 2:00 PM EDT Office Visit [facility] [address] [place] [address] aHrsh Stanley DO [address] [place] [address] [place] [address] documented as of this encounter Procedures Procedure Name Priority Date/Time Associated Diagnosis Comments ALL TYPE AND SCREEN Routine 04/06/2025 9 :21 AM EDT ALL MISCELLANEOUS TEST Routine 9:21 AM EDT ECG 12-LEAD 04/06/2025 7:16 AM EDT documented in this encounter Results * ALL TYPE AND SCREEN (04/06/2025 9:21 AM EDT) BLOOD TYPE O Positive TB Comment:PERFORMED BY [facility] ANTIBODY SCREEN NEGATIVE TB 04/06/2025 9:21 AM EDT 04/06/2025 9:23 AM EDT Narrative [facility] - 04/09/2025 9:54 AM EDT [facility] , Harsh Stanley DO [facility] Final Result [facility] * ALL MISCELLANEOUS TEST (04/06/2025 9:21 AM EDT) MISCELLANEOUS TEST COMMENT . [facility] Comment: Test Ordered: [id number] ABO Grouping and Rho(D) Typing ABO Grouping O CB Reference Range: . Rh Factor Positive CB Reference Range: . Please note: Prior records for this patient's ABO / Rh type are not available for additional verification. Performed at: CB - [facility] [id number] Floor Grinder: Hitesh Blanton PhD, Phone: [phone] 04/06/2025 9:21 AM EDT 04/07/2025 9:21 AM EDT Narrative [facility] - 04/08/2025 8:21 AM EDT [id number] ABO Grouping and Rh Typing us Harsh Stanley DO [facility] Final Result [facility] * ECG 12-LEAD (04/06/2025 7:16 AM EDT) Anatomical Region Laterality Modality Other 04/06/2025 7:16 AM EDT Narrative 04/06/2025 6:26 [place] [address] Electrocardiograph Report Signed Patient: TORY PEOPLES MR#: [id number] : 1985 Acct:[id number] Age/Sex: 39 / F ADM Date: 04/06/25 Loc: PST Attending Dr: Harsh Stanley D.O. Ordering Physician: Harsh Stanley D.O. Date of Service: 04/06/25 Procedure(s): ECG 12 lead Accession Number(s): [id number] cc: [facility] Test Date: 2025-04-06 Pat Name: TORY PEOPLES Department: Room: - Gender: Female Hand Ii Tube Bender: : 1985 Requested By: HARSH STANLEY Order Number: [id number] Reading MD: RONALD MOURA M.D. Measurements Intervals [place] Rate: 89 P: 33 AK: 162 QRS: 75 QRSD: 95 T: 48 QT: 357 QTc: 436 Interpretive Statements SINUS RHYTHM Normal ECG Compared to ECG 09/01/2024 10:39:41 No significant changes Electronically Signed On 04-06-2025 18:26:03 EDT by RONALD MOURA M.D. Dictated By: RONALD MOURA Signed By: 04/06/25 1826 DD/ 0716 TD/TT: Goat Driver: Procedure Note Radiology, Radiologist, - 04/06/2025 [place] [address] Electrocardiograph Report Signed Patient: TORY PEOPLES JMR#: [id number] : 1985Acct:[id number] Age/Sex: 39 / FADM Date: 04/06/25 Loc: PST Attending Dr: Harsh Stanley D.O. Ordering Physician: Harsh Stanley D.O. Date of Service: 04/06/25 Procedure(s): ECG 12 lead Accession Number(s): [id number] cc: [facility] Test Date: 2025-04-06 Pat Name: TORY PEOPLES Department: Room: - Gender: Female Hand Ii Tube Bender: : 1985 Requested By: HARSH STANLEY Order Number: [id number] Reading MD: RONALD MOURA M.D. Measurements Intervals [place] Rate: 89 P: 33 AK: 162 QRS: 75 QRSD: 95 T: 48 QT: 357 QTc: 436 Interpretive Statements SINUS RHYTHM Normal ECG Compared to ECG 09/01/2024 10:39:41 No significant changes Electronically Signed On 04-06-2025 18:26:03 EDT by RONALD MOURA M.D. Dictated By: RONALD MOURA Signed By:04/06/25 1826 DD/ 0716 TD/TT: Goat Driver: us Harsh Stanley DO [facility] IMAGING Final Result documented in this encounter Visit Diagnoses Not on filedocumented in this encounter
--- OUTSIDE RECORDS SUMMARY | 2025-04-15 06:11 | XMS_ITS | Encounter Summary ---
Author Organization [facility] Address [id number] [address] [place] [address] Care Team Providers Care Hammerer Tab Name Role Phone Carla Kalin Haley MASTER MERCHANDISER-CUFF RUNNER Primary Care Provider + Encounter Details Date Type Department Care Team (Late st Contact Info) Description 11/28/2023 Orders Only [facility] Internal Medicine - Family Medicine [address] [place] [phone] External, Scanning Provider Social History Tobacco Use [...] as of this encounter Plan of Treatment Not on file documented as of this encounter Procedures Procedure [...] documented as of this encounter Care Teams Hammerer Tab Relationship Specialty Start Date End Date Kalin Aguirre, MASTER MERCHANDISER-CUFF RUNNER [address] [place] [address] PCP - General Internal Medicine 02/12/25 02/24/25 documented as of this encounter
--- OUTSIDE RECORDS SUMMARY | 2025-04-15 06:11 | XMS_ITS | Encounter Summary ---
Author Organization [facility] Sys tem Address [facility] [place]-[id number] [address] [place] [address] Care Team Providers Care Tool Design Engineer Name Role Phone Carla Kalin Haley PHARMACEUTICAL ANALYST-HAND SIZER Primary Care Provider + Encounter Details Date Type Department Care Team (Late st Contact Info) Description 05/05/2024 Orders Only [facility] Internal Medicine - Family Medicine [address] [place] [address] Ref Prov, [place] [address] Social History Tobacco Use Types Packs/Day Years [...] documented as of this encounter Care Teams Tool Design Engineer Relationship Specialty Start Date End Date Kalin Aguirre, PHARMACEUTICAL ANALYST-HAND SIZER [address] [place] [address] PCP - General Internal Medicine 02/12/25 02/24/25 documented as of this encounter
--- OUTSIDE RECORDS SUMMARY | 2025-04-15 06:11 | XMS_ITS | Encounter Summary ---
Author Organization [facility] Address [address] [facility] [place] [address] Care Team Providers Care Purse Framer Name Role Phone Unavailable Primary Care Provider Unavailabl e Encounter Details Date Type Department Care Team (Late st Contact Info) Description 11/27/2023 Clinisync Result Encounter [facility]OMS External Department Unsolicited Celeste Butler, PA [address] [facility] [address] [place], [place] [id number] Social History Tobacco Use Types Packs/Day Years [...] 10:30 AM EDT Office Visit SANDRO MARTINEZ [address] [place] [address] [place] [phone] Celeste Butler PA [address] [facility] [address] [place], [place] [address] 05/27/2025 9:30 AM EST Office Visit SANDRO MARTINEZ [address] [facility] [place] [phone] Celeste Butler PA [address] [facility] [address] [place], [facility]11 12/14/2025 2:00 PM EDT Office Visit [facility]S Marcy OBGYFranki [address] [facility] [place] [place] [phone] Aurelio Stanley DO [address] [facility] [place] [address] documented as of this encounter Procedures Procedure Name Priority Date/Time Associated Diagnosis Comments US PELVIS W/ TRANSVAGINAL 11/27/2023 7:45 AM EDT documented in this encounter Results * US PELVIS W/ TRANSVAGINAL (11/27/2023 7:45 AM EDT) Anatomical Region Laterality Modality Other 11/27/2023 7:45 AM EDT Narrative 11/27/2023 7:48 AM EDT [address] [address] Ultrasound Report Signed Patient: TORY PEOPLES MR#: [id number] : 1985 Acct:[id number] Age/Sex: 38 / F ADM Date: 11/23/23 Loc: US Attending Dr: Celeste Butler Ordering Physician: Celeste Butler Date of Service: 11/23/23 Procedure(s): US pelvis w/ transvaginal Accession Number(s): [id number] cc: Celeste Butler; RONY SHARMA [address] [id number] Patient Name: TORY PEOPLES MRN: [facility]H:[id number] date: 1985 Sex: F Assigned Patient Location: US Current Patient Location: Accession/Order Number: [id number] Exam Date: 11/23/2023 17:30 Report Date: 11/27/2023 [...] symptoms. Otherwise unremarkable pelvis. Electronically authenticated by: CED BEY Date: 11/27/2023 07:45 Dictated By: Ced Bey M.D. Signed By: 11/27/23 0748 DD/ 0745 TD/TT: Membership Assistant: Procedure Note Radiology, Radiologist, MD - 11/27/2023 [facility] [place] [id number] Ultrasound Report Signed Patient: TORY PEOPLES R#: [id number] : 1985Acct:[id number] Age/Sex: 38 / FADM Date: 11/23/23 Loc: US Attending Dr: Celeste Butler Ordering Physician: Celeste Butler Date of Service: 11/23/23 Procedure(s): US pelvis w/ transvaginal Accession Number(s): [id number] cc: Celeste Butler; RONY SHARMA The [address] [address] Patient Name: TORY PEOPLES MRN: [facility]:[id number] date: 1985 Sex: F Assigned Patient Location: US Current Patient Location: Accession/Order Number: [id number] Exam Date: 11/23/2023 17:30 Report Date: 11/27/2023 [...] symptoms. Otherwise unremarkable pelvis. Electronically authenticated by: CED BEY Date: 11/27/2023 07:45 Dictated By: Ced Bey M.D. Signed By:11/27/23 0748 DD/ 0745 TD/TT: Membership Assistant: us Celeste MARTINEZ [facility] Final Result documented in this encounter Visit Diagnoses Not on filedocumented in this encounter
--- OUTSIDE RECORDS SUMMARY | 2025-04-15 06:11 | XMS_ITS | Encounter Summary ---
Author Organization [facility] Address [address] [facility] [place] [address] Care Team Providers Care Industrial Electrician Journeyman Name Role Phone Unavailable Primary Care Provider Unavailabl e Encounter Details Date Type Department Care Team (Late st Contact Info) Description 04/06/2025 Clinisync Result Encounter NOMS External Department Unsolicited Aurelio Stanley DO [address] [facility] [address] [place], [place] [phone] Social History Tobacco Use Types Packs/Day Years [...] 10:30 AM EDT Office Visit SANDRO MARTINEZ [address] [place] [address] [place] [phone] Celeste Camacho PA [address] [facility] [address] [place], [place] [address] 05/27/2025 9:30 AM EST Office Visit SANDRO MARTINEZ [address] [place] [phone] Celeste Camacho, PA [address] [facility] [address] [place], [facility]11 12/14/2025 2:00 PM EDT Office Visit [facility]OMS Marcy OBGYN [address] [place] [address] Aurelio Stanley DO [address] [facility] [address] [place], [place] [phone] documented as of this encounter Procedures Procedure Name Priority Date/Time Associated Diagnosis Comments [facility]H PROTHROMBIN TIME INR W/O COUM Routine 04/06/2025 9:21 AM EDT [facility] LIVER PANEL Routine 04/06/2025 9:21 AM EDT [facility] APTT Routine 04/06/2025 9:21 AM EDT ALL CBC WITH AUTO DIFF Routine 04/06/2025 9:21 AM EDT ALL BASIC METABOLIC PANEL Routine 04/06/2025 9:21 AM EDT documented in this encounter Results * ALL BASIC METABOLIC PANEL (04/06/2025 9:21 AM EDT) SODIUM 137 136 - 145 mmol/L TBH POTASSIUM 3.7 3.5 - 5.1 mmol/L TBH CHLORIDE 103 98 - 107 mmol/L TBH CARBON DIOXIDE 26.7 21.0 - 32.0 mmol/L TBH ANION GAP 11.0 TBH GLUCOSE 84 74 - 106 mg/dL TBH BLOOD UREA NITROGEN 18.0 7.0 - 18.0 mg/dL TBH CREATININE 0.83 0.55 - 1.02 mg/dL TBH TBH EGFR-AF [place]ER >60 >=60 mL/min/1.7 3m 2 TBH TBH EGFR-NON AF [place] >60 >=60 mL/min/1.7 3m 2 TBH BUN CREATININE RATIO 21.7 TBH CALCIUM 8.5 8.5 - 10.1 mg/dL TBH 04/06/2025 9:21 AM EDT 04/06/2025 9:23 AM EDT Narrative CLINISYNC - 04/06/2025 10:28 AM EDT Aurelio Jaden DO CLINISYNC Final Result CLINIS[facility] TB * (ABNORMAL) [facility] LIVER PANEL (04/06/2025 9:21 AM EDT) BILIRUBIN TOTAL 0.4 0.2 - 1.0 mg/dL TB BILIRUBIN DIRECT <0.1 0.0 - 0.2 mg/dL TB ASPARTATE AMINO TRANSFERASE 27 15 - 37 U/L TBH ALANINE AMINOTRANSFERASE 74(H) 14 - 59 U/L TBH ALKALINE PHOSPHATASE 162(H) 46 - 116 U/L TB TOTAL PROTEIN 7.3 6.4 - 8.2 g/dL TBH ALBUMIN LEVEL 3.3(L) 3.4 - 5.0 g/dL TBH GLOBULIN 4.0 g/dL TB ALBUMIN GLOBULIN RATIO 0.8 TBH 04/06/2025 9:21 AM EDT 04/06/2025 9:23 AM EDT Narrative CLINISYNC - 04/06/2025 10:28 AM EDT [facility] [place] DO [facility] Final Result Performing Organization Address [facility]/ZIP Co de Phone Number [facility] * [facility] APTT (04/06/2025 9:21 AM EDT) PARTIAL THROMBOPLASTIN TIME 30.3 22.3 - 36.2 sec TB 04/06/2025 9:21 AM EDT 04/06/2025 9:23 AM EDT Narrative CLINISYNC - 04/06/2025 9:44 AM EDT [facility] Jaden DO [facility] Final Result [facility] TB * [facility] PROTHROMBIN TIME INR W/O COUM (04/06/2025 9:21 AM EDT) Pathologist [facility] PROTHROMBIN TIME 10.8 9.0 - 11.6 sec TB TB INR 1.02 TBH Comment: DESIRED INR: 2.0-3.0 CONDITIONS NOT LISTED BELOW 2.5-3.5 FOR PROSTHETIC HEART VALVE REPLACEMENT 2.5-3.5 RECURRENT THROMBOSIS 04/06/2025 9:21 AM EDT 04/06/2025 9:23 AM EDT Narrative CLINISYNC - 04/06/2025 9:44 AM EDT us Aurelio Jaden DO [facility] Final Result [facility] * (ABNORMAL) ALL CBC WITH AUTO DIFF (04/06/2025 9:21 AM EDT) Pathologist [facility] TB WBC 12.2(H) 4.0 - 11.0 10 3/uL TBH TBH RBC 4.38 4.20 - 5.40 10 6/uL TBH TBH HGB 12.9 12.0 - 16.0 g/dL TBH TB HCT 38.1 36.0 - 48.0 % TBH TB MCV 87.0 81.0 - 99.0 fL TBH TBH MCH 29.5 26.7 - 34.0 pg TBH TBH MCHC 33.9 29.9 - 35.2 g/dL TB TB RDW 14.0 11.0 - 15.0 % TBH TBH PLT 197 150 - 450 10 3/uL TBH TBH MPV 12.1 9.5 - 13.5 fL TBH NEUTROPHILS PERCENT AUTO 68.9 43.0 - 75.0 % TBH LYMPHOCYTES PERCENT AUTO 20.4(L) 20.5 - 60.0 % TBH MONOCYTES PERCENT AUTO 5.8 1.7 - 12.0 % TBH TBH EO % 4.0 0.9 - 7.0 % TBH BASOPHILS PERCENT AUTO 0.5 0.2 - 2.0 % TBH IMMATURE GRANULOCYTES PCT AUTO 0.4 0.0 - 0.5 % TBH NEUTROPHILS ABSOLUTE AUTO 8.4(H) 1.4 - 6.5 10 3/uL TBH LYMPHOCYTES ABSOLUTE AUTO 2.5 1.2 - 3.8 10 3/uL TBH MONOCYTES ABSOLUTE AUTO 0.7 0.3 - 0.8 10 3/uL TBH TBH EO # 0.5 0.0 - 0.7 10 3/uL TBH BASOPHILS ABSOLUTE AUTO 0.1 0.0 - 0.1 10 3/uL TBH IMMATURE GRANULOCYTES ABS AUTO 0.05(H) 0.00 - 0.03 10 3/uL TBH 04/06/2025 9:21 AM EDT 04/06/2025 9:23 AM EDT Narrative CLINISYNC - 04/06/2025 9:33 AM EDT us Aurelio Stanley DO CLINISYNC Final Result CLIN[facility]NC TB documented in this encounter Visit Diagnoses Not on filedocumented in this encounter
--- OUTSIDE RECORDS SUMMARY | 2025-04-15 06:11 | XMS_ITS | Encounter Summary ---
Author Organization [facility] Address [address] [facility] [place] [address] Care Team Providers Care Commercial Instructor Supervisor Name Role Phone Unavailable Primary Care Provider Unavailabl e Encounter Details Date Type Department Care Team (Late Contact Info) Description 12/17/2024 Orders Only SANDRO MARTINEZ [address] [place] [address] [place] [phone] Feli [place] [address] [place] [address] Social History Tobacco Use Types Packs/Day Years [...] Department Care Team (Late Contact Info) Description 04/22/2025 10:30 AM EDT Office Visit SANDRO MARTINEZ [address] [place] [address] [place] [phone] Celeste Camacho PA [address] [facility] [address] [place], [place] [address] 05/27/2025 9:30 AM EST Office Visit SANDRO MARTINEZ [address] [place] [address] [place] [address] Celeste Camacho PA [address] [facility] [address] [place], [facility] 12/14/2025 2:00 PM EDT Office Visit NOMAdan OJEDAGYN [address] [facility] [place] [address] Aurelio Stanley DO [address] [place] [address] [place] [address] documented as of this encounter Procedures Procedure Name Priority Date/Time Associated Diagnosis Comments PAP SMEAR Routine 12/08/2024 12:00 AM EDT documented in this encounter Results * Pap Smear (12/08/2024 12:00 AM EDT) Swab Cervical swab / Unknown us Aurelio Stanley DO LAB CYTOLOGY ORDERABLES Final Re sult EXTERNAL LAB documented in this encounter Visit Diagnoses Not on filedocumented in this encounter
--- OUTSIDE RECORDS SUMMARY | 2025-04-15 06:11 | XMS_ITS | Encounter Summary ---
Author Organization [facility] Sys tem Address [facility] [place]-[id number] [address] [place] [address] Care Team Providers Care Child And Family Services Worker Name Role Phone Kalin Aguirre DISTRIBUTION CENTER ASSISTANT-POWER BRAKE OPERATOR Primary Care Provider + Encounter Details Date Type Department Care Team (Late st Contact Info) Description 05/09/2023 Orders Only [facility] Internal Medicine - Family Medicine [address] [place] [address] External, Scanning Provider Social History Tobacco Use [...] on file documented as of this encounter Visit Diagnoses Not on filedocumented in this encounter Additional Health Concerns Assessment Noted Time PHQ-9 Depression Total Score: 0 01/09/20 23 2:46 PM EDT A Body Mass Index follow-up plan has been documented for the patient 01/22/2023 6:26 AM EDT documented as of this encounter Care Teams Child And Family Services Worker Relationship Specialty Start Date End Date Kalin Aguirre, DISTRIBUTION CENTER ASSISTANT-POWER BRAKE OPERATOR [address] [place] [address] PCP - General Internal Medicine 02/12/25 02/24/25 documented as of this encounter
--- OUTSIDE RECORDS SUMMARY | 2025-04-15 06:11 | XMS_ITS | Clinical Summary ---
Author Organization [facility] Healthcare Address [address] [place] [address] Care Team Providers Care Unscrambler Name Role Phone Unavailable Primary Care Provider Unavailabl e Allergies Active Allergy Reactions Criticality Noted Date Comments Penicillins Unknown 09/05/2016 Medications ARIPiprazole (Abilify) 5 MG tablet Take 1 tablet by mouth in the morning. 10/15/19 24 Active cholecalcifero l (Vitamin D-3) 125 MCG (5000 UT) capsule Take 1 capsule by mouth in the morning. 09/12/19 24 Active escitalopram (Lexapro) 10 MG tablet Take 10 mg by mouth in the morning. 05/01/20 23 Active fexofenadine (Shelly) 180 MG tablet Take 180 mg by mouth in the morning. 06/14/20 23 Active hydroCHLOROthi azide (HYDRODiuril) 12.5 MG tablet Take 12.5 mg by mouth in the morning. 06/14/20 23 Active hydrOXYzine pamoate (Vistaril) 50 MG capsule take 1 capsule by mouth twice a day if needed 10/15/19 24 Active meloxicam (Mobic) 15 MG tablet Take 1 tablet by mouth in the morning. 09/12/19 24 Active methocarbamol (Robaxin) 750 MG tablet Take 750 mg by mouth in the morning and 750 mg at noon and 750 mg in the evening. 10/15/19 24 Active SUMAtriptan (Imitrex) 50 MG tablet take 1 tablet by mouth if needed AT ONSET OF HEADACHE may repeat ... (REFER TO PRESCRIPTION NOTES). 05/01/20 23 Active QUEtiapine (SEROquel) 100 MG tablet 1 (one) time each day at the same time Active traZODone (Desyrel) 100 MG tablet Take 100 mg by mouth at bedtime Active omega-3 (Fish Oil) 1000 MG capsule take 1 capsule by mouth twice a day as directed 06/14/20 025 Discontinued Active Problems Problem Noted Date Diagnosed Date Endometriosis 09/22/2024 Menorrhagia with regular cycle 01/07/2024 Encounters Date Type Department Care Team Description 04/06/2025 Clinisync Result Encounter NOMS External Department Unsolicited Harsh Stanley, 04/06/2025 Clinisync Result Encounter NOMS External Department Unsolicited Harsh Stanley, DO 03/19/2025 9:10 AM EDT Consult SANDRO MARTINEZ [address] [place] [phone] Harsh Stanley, Pre-op examination; Pelvic pain; Dyspareunia in female; Dysmenorrhea; Menorrhagia with regular cycle from Last 3 Months Family History Medical [...] Sign Reading Time Taken Comments Blood Pressure 120/86 03/19/2025 9:20 AM EDT Pulse - - Temperature - - Respiratory Rate - - Oxygen Saturation - - Inhaled Oxygen Concentration - - Weight 103 kg (227 lb 8 oz) 03/19/2025 9:20 AM E DT Height 154.9 cm (5' 1 ) 11/06/2023 3:26 PM EDT Body Mass Index 42.99 11/06/2023 3:26 PM EDT Plan of Treatment Upcoming Encounters Date Type Department Care Team (Late st Contact Info) Description 04/22/2025 10:30 AM EDT Office Visit SANDRO MARTINEZ [address] [place] [phone] Celeste Camacho PA [address] [place] [address] 05/27/2025 9:30 AM EST Office Visit SANDRO MARTINEZ [address] [place] [address] [place] [phone] Celeste Camacho, PA [address] [place] [address] 12/14/2025 2:00 PM EDT Office Visit SANDRO MARTINEZ [address] [place] [address] [place] [phone] Harsh Stanley DO [address] [place] [address] Procedures Procedure Name Priority Date/Time Associated Diagnosis Comments ALL TYPE AND SCREEN Routine 04/06/2025 9 :21 AM EDT ALL MISCELLANEOUS TEST Routine 9:21 AM EDT ALL BASIC METABOLIC PANEL Routine 04/06/2025 9:21 AM EDT [facility] LIVER PANEL Routine 04/06/2025 9:21 AM EDT CCF APTT Routine 04/06/2025 9:21 AM EDT [facility] PROTHROMBIN TIME INR W/O COUM Routine 04/06/2025 9:21 AM EDT ALL CBC WITH AUTO DIFF Routine 9:21 AM EDT ECG 12-LEAD 04/06/2025 7:16 AM EDT from Last 3 Months Results * [facility] PROTHROMBIN TIME INR W/O COUM (04/06/2025 9:21 AM EDT) PROTHROMBIN TIME 10.8 9.0 - 11.6 sec TB TB INR 1.02 TB Comment: DESIRED INR: 2.0-3.0 CONDITIONS NOT LISTED BELOW 2.5-3.5 FOR PROSTHETIC HEART VALVE REPLACEMENT 2.5-3.5 RECURRENT THROMBOSIS 04/06/2025 9:21 AM EDT 04/06/2025 9:23 AM EDT Narrative CLINISYNC - 04/06/2025 9:44 AM EDT Harsh Jaden DO CLINISYNC Final Result [facility] * (ABNORMAL) [facility] LIVER PANEL (04/06/2025 9:21 AM EDT) BILIRUBIN TOTAL 0.4 0.2 - 1.0 mg/dL TBH BILIRUBIN DIRECT <0.1 0.0 - 0.2 mg/dL TBH ASPARTATE AMINO TRANSFERASE 27 15 - 37 U/L TBH ALANINE AMINOTRANSFERASE 74(H) 14 - 59 U/L TBH ALKALINE PHOSPHATASE 162(H) 46 - 116 U/L TBH TOTAL PROTEIN 7.3 6.4 - 8.2 g/dL TBH ALBUMIN LEVEL 3.3(L) 3.4 - 5.0 g/dL TBH GLOBULIN 4.0 g/dL TBH ALBUMIN GLOBULIN RATIO 0.8 TBH 04/06/2025 9:21 AM EDT 04/06/2025 9:23 AM EDT Narrative CLINISYNC - 04/06/2025 10:28 AM EDT us Harsh Jaden DO CLINISYNC Final Result [facility] * CCF APTT (04/06/2025 9:21 AM EDT) PARTIAL THROMBOPLASTIN TIME 30.3 22.3 - 36.2 sec TB 04/06/2025 9:21 AM EDT 04/06/2025 9:23 AM EDT Narrative CLINISYNC - 04/06/2025 9:44 AM EDT Harsh Jaden DO CLINISYNC Final Result [facility] * ALL TYPE AND SCREEN (04/06/2025 9:21 AM EDT) Pathologist [facility] BLOOD TYPE O Positive [facility] Comment:PERFORMED BY [facility] ANTIBODY SCREEN NEGATIVE [facility] 04/06/2025 9:21 AM EDT 04/06/2025 9:23 AM EDT Narrative CLINISYWI - 04/09/2025 9:54 AM EDT [facility] , Harsh Jaden DO CLINISYNC Final Result Performing Organization Address [facility] Co de Phone Number [facility] * ALL MISCELLANEOUS TEST (04/06/2025 9:21 AM EDT) [facility] MISCELLANEOUS TEST COMMENT . [facility] Comment: Test Ordered: [id number] ABO Grouping and Rho(D) Typing ABO Grouping O CB Reference Range: . Rh Factor Positive CB Reference Range: . Please note: Prior records for this patient's ABO / Rh type are not available for additional verification. Performed at: - [address] [id number] Sociology Research Assistant: Hitesh Blanton PhD, Phone: [phone] 04/06/2025 9:21 AM EDT 04/07/2025 9:21 AM EDT [facility] - 04/08/2025 8:21 AM EDT [id number] ABO Grouping and Rh Typing Harsh Jaden DO CLINISYNC Final Result Performing Organization Address [facility]/ZIP Co de Phone Number [facility] * (ABNORMAL) ALL CBC WITH AUTO DIFF (04/06/2025 9:21 AM EDT) TBH WBC 12.2(H) 4.0 - 11.0 10 3/uL TBH TBH RBC 4.38 4.20 - 5.40 10 6/uL TBH TBH HGB 12.9 12.0 - 16.0 g/dL TBH TBH HCT 38.1 36.0 - 48.0 % TBH TBH MCV 87.0 81.0 - 99.0 fL TBH TBH MCH 29.5 26.7 - 34.0 pg TBH TBH MCHC 33.9 29.9 - 35.2 g/dL TBH TBH RDW 14.0 11.0 - 15.0 % TBH [...] CLINISYNC - 04/06/2025 9:33 AM EDT us Harsh Jaden DO [facility]IS[facility] Final Result [facility] * ALL BASIC METABOLIC PANEL (04/06/2025 9:21 [...] 0.55 - 1.02 mg/dL TBH TBH EGFR-AF [place]IAN >60 >=60 mL/min/1.7 3m 2 TBH TBH EGFR-NON AF [place]ST[place]IAN >60 >=60 mL/min/1.7 3m 2 TBH BUN CREATININE RATIO 21.7 TBH CALCIUM 8.5 8.5 - 10.1 mg/dL TBH 04/06/2025 9:21 AM EDT 04/06/2025 9:23 AM EDT Narrative CLINISYNC - 04/06/2025 10:28 AM EDT us Harsh Stanley DO CLINIS[facility]NC Final Result [facility] * ECG 12-LEAD (04/06/2025 7:16 AM EDT) Anatomical Region Laterality Modality Other 04/06/2025 7:16 AM EDT Narrative 04/06/2025 6:26 [place] [address] Electrocardiograph Report Signed Patient: TORY PEOPLES MR#: [id number] : 1985 Acct:[id number] Age/Sex: 39 / F ADM Date: 04/06/25 Loc: PST Attending Dr: Harsh Stanley D.O. Ordering Physician: Harsh Stanley D.O. Date of Service: 04/06/25 Procedure(s): ECG 12 lead Accession Number(s): [id number] cc: [facility] Test Date: 2025-04-06 Pat Name: TORY PEOPLES Department: Room: - Gender: Female Assistant Paralegal: : 1985 Requested By: HARSH STANLEY Order Number: [id number] Reading MD: RONALD MOURA M.D. Measurements Intervals [place] Rate: 89 P: 33 MA: 162 QRS: 75 QRSD: 95 T: 48 QT: 357 QTc: 436 Interpretive Statements SINUS RHYTHM Normal ECG Compared to ECG 09/01/2024 10:39:41 No significant changes Electronically Signed On 04-06-2025 18:26:03 EDT by RONALD MOURA M.D. Dictated By: RONALD MOURA Signed By: 04/06/251825 DD/ TD/TT: Orthopedic Dentist: Procedure Note Radiology, Radiologist, MD - 04/06/2025 [place] [address] Electrocardiograph Report Signed Patient: TORY PEOPLES R#: [id number] : 1985Acct:[id number] Age/Sex: 39 / FADM Date: 04/06/25 Loc: [facility] Attending Dr: Harsh Stanley D.O. Ordering Physician: Harsh Stanley D.O. Date of Service: 04/06/25 Procedure(s): ECG 12 lead Accession Number(s): [id number] cc: [facility] Test Date: 2025-04-06 Pat Name: TORY PEOPLES Department: Room: - Gender: Female Assistant Paralegal: : 1985 Requested By: HARSH STANLEY Order Number: [id number] Reading MD: RONALD MOURA M.D. Measurements Intervals [place] Rate: 89 P: 33 MA: 162 QRS: 75 QRSD: 95 T: 48 QT: 357 QTc: 436 Interpretive Statements SINUS RHYTHM Normal ECG Compared to ECG 09/01/2024 10:39:41 No significant changes Electronically Signed On 04-06-2025 18:26:03 EDT by RONALD MOURA M.D. Dictated By: RONALD MOURA Signed By:04/06/251825 DD/ TD/TT: Orthopedic Dentist: us Harsh Stanley DO [facility] IMAG[facility] Final Result from Last 3 Months Insurance [employer] BCBS MEDICAID [place]
--- OUTSIDE RECORDS SUMMARY | 2025-04-15 06:11 | XMS_ITS | Encounter Summary ---
Author Organization [facility] Sys tem Address [facility] [id number] [address] [place] [address] Care Team Providers Care Certification Officer Name Role Phone Unavailable Primary Care Provider Unavailabl e Reason for Visit * Reason Comments Med Refill Encounter Details Date Type Department Care Team (Late st Contact Info) Description 02/26/2025 Refill [facility] Internal Medicine - Family Medicine [address] [place] [phone] Yvonne Cox, EDDY CURRENT INSPECTOR-RECRUITING INTERNSHIP [address] [place] [address] Migraine without aura and without status migrainosus, not intractable Social History Tobacco Use Types Packs/Day Years [...] as of this encounter Visit Diagnoses Diagnosis Migraine without aura and without status migrainosus, not intractable documented in this encounter Additional Health Concerns Assessment Noted Time PHQ-9 Depression Total Score: 0 06/14/20 23 2:03 PM EST A Body Mass Index follow-up plan has been documented for the patient 10/13/2024 3:58 PM EDT documented as of this encounter
--- OUTSIDE RECORDS SUMMARY | 2025-04-15 06:11 | XMS_ITS | Encounter Summary ---
Author Organization [facility] Address [address] [facility] [place] [address] Care Team Providers Care Quad Stayer Name Role Phone Unavailable Primary Care Provider Unavailabl e Encounter Details Date Type Department Care Team (Late st Contact Info) Description 12/18/2023 Orders Only NOMAdan MARTINEZ [address] [facility] [address] [place] [address] Alyce Lechuga LPN [address] [place] [address] Social History Tobacco Use Types Packs/Day [...] Description 04/22/2025 10:30 AM EDT Office Visit NOMAdan MARTINEZ [address] [facility] [place] [address] Celeste Camacho PA [address] [facility] [place] [address] 05/27/2025 9:30 AM EST Office Visit NOMAdan MARTINEZ [address] [facility] [place] [address] Celeste Camacho PA [address] [facility] [place] [address] 12/14/2025 2:00 PM EDT Office Visit SANDRO MARTINEZ [address] [facility] [place] [address] Aurelio Stanley DO [address] [facility] [place] [address] documented as of this encounter Procedures Procedure Name Priority Date/Time Associated Diagnosis Comments PAP SMEAR Routine 11/06/2023 12:00 AM EDT documented in this encounter Results * Pap Smear (11/06/2023 12:00 AM EDT) Swab Cervical swab / Unknown us Jaden Nurse [facility] CYTOLOGY ORDERABLES Final Result EXTERNAL LAB documented in this encounter Visit Diagnoses Not on filedocumented in this encounter
--- OUTSIDE RECORDS SUMMARY | 2025-04-15 06:11 | XMS_ITS | Patient Health Record ---
Author Organization [facility] Address [address] [place] [address] Care Team Providers Care Rod Straightener Name Role Phone Dr. Manny Singh Primary Care Provider Earlene Trevino Unavailable [phone] Marisela Holt Unavailable [phone] Yvonne Cox Unavailable [phone] Selene Izabela Unavailable [phone] Allergies Allergen (clinical drug ingredient) Drug/Non Drug Allergy documented on EMR Reaction Allergy Type Onset Date Status milk (uncoded) lactose intolerant Allergy Active Strawberries rash Allergy Active Reason For Referral No Information Medications Medication SIG (Take, Route, Frequency, Duration) Notes Start Date End Date Status hydroCHLOROthiazide 12.5 MG Tablet 1 tablet Oral Once a day; Duration: 30 days Active Escitalopram Oxalate 10 MG Tablet TAKE 1 TABLET (10 MG TOTAL) BY MOUTH IN THE MORNING Oral; Duration: 30 Days Active Escitalopram Oxalate 10 MG Tablet 1 tablet Orally Once a day; Duration: 30 days Active Abilify 5 MG Tablet 1 tablet Orally Once a day; Duration: 30 days 03/04/2025 Active vitamin D3 Active Fexofenadine HCl 180 MG Tablet 1 tablet Oral daily; Duration: 30 days 09/30/2025 Active Lisinopril 20 MG Tablet 1 tablet Oral On ce a day; Duration: 30 days Active Methocarbamol 750 MG Tablet 1 tablet Orally 3 times a day; Duration: 30 days As needed Active Meloxicam 15 MG Tablet 1 tablet Oral Onc e a day; Duration: 30 days Active traZODone HCl 100 MG Tablet 1 tablet at bedtime Orally daily; Duration: 30 days Active Vitamin D3 50 MCG (1999) Capsule 1 capsule Orally Once a day; Duration: 30 days 03/04/2025 09/30/2025 Active QUEtiapine Fumarate 100 MG Tablet 1 tablet Orally nightly; Duration: 30 days Active Social History Tobacco Use: Social History Observation Description Date Details (start date - stop date) Current Smoker NA - NA Sex Assigned At : Social History Observation Description Sex Assigned At Female Social History General Social Info Question Answer Notes Depression Screening (PHQ-9): Little int erest or pleasure in doing things Not at all Feeling down, depressed, or hopeless Not at all Trouble falling or staying asleep, or sleeping t oo much Not at all Feeling tired or having little energy Nearly saman day Poor appetite or overeating Not at all Feeling bad about yourself-o r that you are a failure or have let yourself or your family down Not at all Trouble concentrating on thi ngs, such as reading the newspaper or watching television Not at all Moving or speaking so slowly that other people could have noticed. Or the opposite being so fidgety or restless that you have been moving around a lot more than usual Not at all Thoughts that you would be b marj off , or of hurting yourself in some way Not at all Total Score 3 Intepretation Minimal Depression Drug/Alcohol: Social Info Question Answer Notes AUDIT-C (Standard) Did you have a drink containing alcohol in the past year? No Points 0 Interpretation Negative Tobacco Use: Social Info Question Answer Notes Tobacco Control (Standard) Tobacco use: Current smoker How often do you smoke cigarettes? Every day How many cigarettes a day do you smoke? 11-20 How soon after you wake up do you smoke your first cigarette? Within 5 minutes Are you interested in quitting? Thinking about quitting Problems Problem Type SNOMED Code ICD Code Onset Dates Problem Status W/U Status Risk Notes Problem Tobacco user (333004284) Nicotine dependence, unspecified, uncomplicated (F17.200) Active confirmed Problem Insomnia (013939475) Insomnia (G47.00) Active confirmed Problem Vitamin D deficiency (46038139) Vitamin D deficiency (E55.9) Active confirmed Problem Hypertension (06528594) Hypertension (I10) Active confirmed Problem Allergic rhinitis (98159807) Allergic rhinitis (J30.9) Active confirmed Problem Depressed bipolar I disorder (85509559) Bipolar depression (F31.30) Active confirmed Problem Nephrolithiasis (18611129) Nephrolithiasis (N20.0) 03/13/20 19 Active confirmed Problem Excessive and frequent menstruation (541097022) Menorrhagia with regular cycle (N92.0) 01/07/20 24 Active confirmed Problem Endometriosis (948695044) Endometriosis (N80.9) 09/23/19 25 Active confirmed Problem 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) 09/07/19 17 Active confirmed Vital Signs Heart Rate 96 /min 03/04/2025 Temperature 97.6 degrees Fahrenheit 03/04/2025 Oximetry 96 % 03/04/2025 Blood pressure diastolic 80 mm Hg 03/04/2025 Height 61 in 03/04/2025 Blood pressure systolic 125 mm Hg 03/04/2025 Weight 226.8 lbs 03/04/2025 BMI 42.85 kg/m2 03/04/2025 Encounters Encounter Location Date Provider Diagnosis [address] [address] 03/04/2025 Yvonne Cox Hypertension I10 ; Bipolar depression F31.30 ; Nicotine dependence, unspecified, uncomplicated F17.200 ; Allergic rhinitis J30.9 ; Muscle spasms of neck M62.838 ; Insomnia G47.00 and Vitamin D deficiency E55.9 [facility] [address] [place] [address] 08/07/2024 Marisela Holt Encounter for dental examination and cleaning with abnormal findings Z01.21 ; Other dental procedure status Z98.818 ; Acute gingivitis, plaque induced K05.00 and Dental caries on pit and fissure surface penetrating into dentin K02.52 [facility] [address] [place] [address] 10/16/20[facility] caries on pit and fissure surface penetrating into dentin K02.52 Assessments Encounter Date Diagnosis (ICD Code) Assessment Notes Treatment Notes Treatment Clinical Notes Section Notes 03/04/2025 Hypertension (ICD-10 - I10) Blood pressure is 125/80. Continue lisinopril and HCTZ 03/04/2025 Bipolar depression (ICD-10 - F31.30) Patient reports moods have been stable. Depression scoring is zero today 10/16/2024 Dental caries on pit and fissure surface penetrating into dentin (ICD-10 - K02.52) 08/07/2024 Encounter for dental examination and cleaning with abnormal findings (ICD-10 - Z01.21) 08/07/2024 Other dental procedure status (ICD-10 - Z98.818) 08/07/2024 Acute gingivitis, plaque induced (ICD-10 - K05.00) 03/04/2025 Nicotine dependence, unspecified, uncomplicated (ICD-10 - F17.200) Discussed smoking cessation today. She is not interested at this time. 03/04/2025 Allergic rhinitis (ICD-10 - J30.9) Patient reports allergic rhinitis symptoms are controlled with fexofenadine 180 mg oral daily. 03/04/2025 Muscle spasms of neck (ICD-10 - M62.838) 08/07/2024 Dental caries on pit and fissure surface penetrating into dentin (ICD-10 - K02.52) 03/04/2025 Insomnia (ICD-10 - G47.00) Reports sleeping through the night. 03/04/2025 Vitamin D deficiency (ICD-10 - E55.9) 03/04/2025 Other Body Mass Index : Care Instructions material was published, Body Mass Index: Care Instructions material was printed Plan Of Treatment Next Appt Details Provider Name:Izabela Morton, 11:30:00 AM, [address], [place], [address], Provider Name:Earlene Uriel , 06/15/2025 08:00:00 AM, [address], [place], [address], Provider Name:Yvonne pollard, 09/01/2025 02:30:00 PM, [address] [place], [address], Insurance Providers Payer Name Payer Address Payer Phone Subscriber Number Group Number Insured Name Patient Relationship to Insured Coverage Start Date Coverage End Date zPARAMOUN T ADVANTAGE -termed [address] [place] [phone] [id number] [employer] Self - patient is the insured 2 3 [facility] [place] Medicaid [address] [place] [address] [id number] [employer] Self - patient is the insured 3 zMEDICAID CFC after PARAMOUNT -termed 22 [address] [place] [address] [id number] [employer] Self - patient is the insured 2 3 Wrap [employer] [address] [place] [address] [id number] [employer] Self - patient is the insured 3 zDENTAL DQ PARAMOUNT -termed 22 [address] [place] [address] [id number] [employer] Self - patient is the insured 2 3 zDental MEDICAID CFC after PARAMOUNT -termed 22 [address] [place] [address] [id number] [employer] Self - patient is the insured 2 3 Dental [place] DQ Terminate d 24 [address] [place] [address] [id number] [employer] Self - patient is the insured 3 Dental Wrap C[employer] [place] [employer] Termed 4 [address] [place] [address] [id number] [employer] Self - patient is the insured 3 DENTAL [employer] L [address] [address] [place] [address] [id number] ANOHCAIDA [id number] [employer] Self - patient is the insured 5 Medical (General) History Medical History History ICD Code Nephrolithiasis depression anxiety PTSD Surgical History Surgery Date(Month/Year) childbirth x3 Lithotripsy Hospitalization History Reason Date(Month/Year) see surgeries
--- OUTSIDE RECORDS SUMMARY | 2025-04-15 06:11 | XMS_ITS | Clinical Summary ---
Author Organization [employer] Address [facility]-[id number] [address] [place] [address] Care Team Providers Care Small Business Sales Representative Name Role Phone Unavailable Primary Care Provider Unavailabl e Allergies Active Allergy Reactions Criticality Noted Date Comments Penicillins 09/05/2016 Medications fexofenadine (PETER) 180 mg tabletIndications :Chronic seasonal allergic rhinitis Take 1 tablet (180 mg total) by mouth in the morning. 30 tablet 6 07/14/19 25 Active cholecalciferol, vitamin D3, (D3-2000) 2,000 units capsuleIndication s:Vitamin D deficiency Take 1 capsule (2,000 Units total) by mouth in the morning. 30 each 07/15/19 25 Active lisinopriL (PRINIVIL,ZESTRIL ) 20 mg tabletIndications :Benign essential HTN Take 1 tablet (20 mg total) by mouth in the morning. 30 tablet 6 09/09/19 25 Active SUMAtriptan (IMITREX) 50 mg tabletIndications :Migraine without aura and without status migrainosus, not intractable TAKE 1 TABLET BY MOUTH IF NEEDED AT ONSET OF HEADACHE MAY REPEAT ... (REFER TO PRESCRIPTION NOTES). 9 tablet 2 11/07/19 25 Active QUEtiapine (SEROquel) 100 mg tabletIndications :Bipolar affective disorder, currently depressed, mild (CMS-HCC) TAKE 1 TABLET BY MOUTH EVERY DAY AT NIGHT 30 tablet 5 12/02/19 25 Active hydroCHLOROthiazi de (HYDRODIURIL) 12.5 mg tabletIndications :Nephrolithiasis TAKE 1 TABLET BY MOUTH EVERY DAY 30 tablet 5 01/23/20 25 Active escitalopram (LEXAPRO) 10 mg tabletIndications :Bipolar affective disorder, currently depressed, mild (CMS-HCC) TAKE 1 TABLET (10 MG TOTAL) BY MOUTH IN THE MORNING 30 tablet 5 01/23/20 25 Active meloxicam (MOBIC) 15 mg tabletIndications :Lumbar back pain with radiculopathy affecting left lower extremity TAKE 1 TABLET (15 MG TOTAL) BY MOUTH IN THE MORNING 30 tablet 5 01/23/20 25 Active ARIPiprazole (ABILIFY) 5 mg tabletIndications :Bipolar affective disorder, currently depressed, mild (CMS-HCC) TAKE 1 TABLET (5 MG TOTAL) BY MOUTH IN THE MORNING 30 tablet 5 01/23/20 25 Active methocarbamoL (ROBAXIN) 750 mg tabletIndications :Lumbar back pain with radiculopathy affecting left lower extremity TAKE 1 TABLET BY MOUTH THREE TIMES A DAY 30 tablet 1 01/23/20 25 Active traZODone (DESYREL) 100 mg tabletIndications :Insomnia, unspecified type TAKE 1 TABLET BY MOUTH EVERY DAY AT NIGHT 30 tablet 3 01/31/20 25 Active Active Problems Problem Noted Date Diagnosed [...] Encounters Date Type Department Care Team Description 02/26/2025 Refill [facility] - [facility] [address] [place] [address] Yvonne Cox APRN-DAISY Migraine without aura and without status migrainosus, not intractable 02/12/2025 Travel 01/29/2025 Refill [facility] [address] [place] [address] Yvonne Cox APRN-DAISY Insomnia, unspecified type 01/20/2025 Refill [facility] - [facility] [address] [place] [address] Yvonne Cox APRN-DAISY Nephrolithiasis; Bipolar affective disorder, currently depressed, mild (CMS-HCC); Lumbar back pain with radiculopathy affecting left lower extremity from Last 3 Months Family History Medical [...] 10/13/2024 3:16 PM EDT Plan of Treatment Health Maintenance Due Date Last Done Comments Tobacco Counseling 1987 DTaP,Tdap and Td Vaccines (2 - Td or Tdap) 12/21/2019 12/20/2009 Depression Screening 06/14/2024 06/14/2023 Influenza Vaccine 03/02/2025 Pap Smear 09/19/2025 09/19/2022 Adult BMI Follow Up Plan 10/13/2025 10/13/2024 Adult BMI Screening 10/13/2025 10/13/2024 Tobacco Screening 10/13/2025 10/13/2024 Medical Devices Not on file Insurance [employer]
--- OUTSIDE RECORDS SUMMARY | 2025-04-15 06:12 | XMS_ITS | Encounter Summary ---
Author Organization [employer] Address [facility]-[id number] [address] [place] [address] Care Team Providers Care Bisque Ware Dipper Name Role Phone Kalin Aguirre PRODUCT CONSULTANT-COORDINATOR VOLUNTEER SERVICES Primary Care Provider + Encounter Details Date Type Department Care Team (Late st Contact Info) Description 07/15/[address] [facility] [address] [place] [address] Gt Wood CMA Social History Tobacco Use [...] documented in this encounter Plan of Treatment Not on file documented as of this encounter Visit Diagnoses Not on filedocumented in this encounter Additional Health Concerns Assessment Noted Time PHQ-9 Depression Total Score: 0 06/14/20 23 2:03 PM EST A Body Mass Index follow-up plan has been documented for the patient 07/14/2024 1:31 PM EST documented as of this encounter Care Teams Bisque Ware Dipper Relationship Specialty Start Date End Date Kalin Aguirre, DANA-COORDINATOR VOLUNTEER SERVICES [address] [place] [address] PCP - General Internal Medicine 02/12/25 02/24/25 documented as of this encounter
--- OUTSIDE RECORDS SUMMARY | 2025-04-15 06:12 | XMS_ITS | Patient Health Record ---
Author Organization [facility] [place] Address [address] [place] [address] Care Team Providers Care Conference Center Coordinator Name Role Phone None, Unknown or Primary [...] End Date [employer] [place]ICA[place] [address] [address] [place] [address] [id number] Farideh Peoples Self - patient is the insured 3 Medical (General) History Medical History History ICD Code Ingrowing nail L60.0 Acute paronychia of toe of right foot L0 3.031 Abscess of right foot L02.611
--- OUTSIDE RECORDS SUMMARY | 2025-04-15 06:12 | XMS_ITS | Encounter Summary ---
Author Organization [facility] Address [address] [facility] [place] [address] Care Team Providers Care Lcac Radar Operator/Navigator Name Role Phone Unavailable Primary Care Provider Unavailabl e Encounter Details Date Type Department Care Team (Late Contact Info) Description 09/02/2024 Abstract NOM[facility]an MARTINEZ [address] [place] [address] Aurelio Stanley DO [address] [place] [address] Social History Tobacco Use Types Packs/Day [...] AM EDT Office Visit SANDRO MARTINEZ [address] [place] [address] eCleste Camacho PA [address] [place] [address] 05/27/2025 9:30 AM EST Office Visit SANDRO MARTINEZ [address] [place] [address] Celeste Camacho PA [address] [facility] [place] [address] 12/14/2025 2:00 PM EDT Office Visit SANDRO MARTINEZ [address] [place] [place] [address] Aurelio Stanley DO [address] [place] [address] [place] [address] documented as of this encounter Visit Diagnoses Not on filedocumented in this encounter
--- OUTSIDE RECORDS SUMMARY | 2025-04-15 06:12 | XMS_ITS | Encounter Summary ---
Author Organization [facility] Address [address] [facility] [place] [address] Care Team Providers Care Airport Maintenance Laborer Name Role Phone Unavailable Primary Care Provider Unavailabl e Encounter Details Date Type Department Care Team (Late Contact Info) Description 09/12/2024 Abstract NOMAdan MARTINEZ [address] [place] [address] Aurelio Stanley DO [address] [place] [address] Social History Tobacco Use Types Packs/Day [...] AM EDT Office Visit SANDRO MARTINEZ [address] [place] [address] Celeste Camacho PA [address] [place] [address] 05/27/2025 9:30 AM EST Office Visit SANDRO MARTINEZ [address] [facility] [place] [address] Celeste Camacho PA [address] [facility] [place] [address] 12/14/2025 2:00 PM EDT Office Visit SANDRO MARTINEZ [address] [facility] [place] [place] [address] Aurelio Stanley DO [address] [place] [address] [place] [address] documented as of this encounter Visit Diagnoses Not on filedocumented in this encounter
--- OUTSIDE RECORDS SUMMARY | 2025-04-15 06:12 | XMS_ITS | Encounter Summary ---
Author Organization [employer] [facility] tem Address [facility]-[id number] [address] [place] [address] Care Team Providers Care Agricultural Extension Educator Name Role Phone Kalin Aguirre APRN-DAISY Primary Care Provider + Reason for Referral * Consultation (Routine) - Pending Review Specialty Diagnoses / Procedures Referred By Alaina soni Referred To Contact Gastroenterology Diagnoses Elevated LFTs History of hepatitis C Yvonne Cox APRN-CNP [address] 12/29/24 [place] [address] Phone: tel: fax: Diamond Parson MD [address] [place] [address] Phone: tel: fax: Referral ID Status Reason Start Date Expiration Date Visits Requested Visits Authorized [id number] Pending Review Specialty Services Required 11/19/2024 11/19/2025 1 1 Encounter Details Date Type Department Care Team ([facility] Contact Info) Description 11/19/2024 Orders Only [facility] - Family Medicine [address] [place] [address] Yvonne Cox APRN-CNP [address] [place] [id number] Elevated LFTs (Primary Dx); History of hepatitis [...] as of this encounter Plan of Treatment Scheduled Referrals Name Type Priority Associated Diagnoses [...] documented as of this encounter Care Teams Agricultural Extension Educator Relationship Specialty Start Date End Date aKlin Aguirre, TENNIS DESK TEAM MEMBER-SALES FORCE DEVELOPER [address] [place] [address] PCP - General Internal Medicine 02/12/25 02/24/25 documented as of this encounter
--- OUTSIDE RECORDS SUMMARY | 2025-04-15 06:13 | XMS_ITS | CCD ---
Author Organization [facility] Care Team Providers Care Radiator Core Tester Name Role Phone Gerson Sheppard Admitting Unavailable Gerson Sheppard Attending Unavailable Unavailable Primary Care Provider Unavailabl e Unavailable Primary Care Provider Unavailabl e DAVID, DIEGO Referring Unavailable DAVID, DIEGO Referring Unavailable DAVID, DIEGO Referring Unavailable DAVID, DIEGO Referring Unavailable DAVID, DIEGO Referring Unavailable REQUEST, NONE LISTED Primary [...] Aguirre Primary Care Unavailable COX, RONY Aguirre Attending Unavailable COX, RONY Aguirre Referring Unavailable COX, RONY Carla Primary Care Unavailable COX, RONY Aguirre Referring Unavailable COX, RONY Aguirre Primary Care Unavailable COX, RONY Aguirre Referring Unavailable COX, RONY Carla Primary Care Unavailable COX, RONY Aguirre Referring Unavailable COX, RONY Aguirre Primary Care Unavailable [facility] GRANULATING MACHINE OPERATOR-BIBLIOGRAPHIC SERVICES SPECIALIST, Rony Aguirre Primary Care [facility] er Unavailable Primary Care Provider Unavailcesilia e AURELIO STANLEY Attending Unavailable JADEN, AURELIO Attending Unavailable AURELIO STANLEY Attending Unavailable AURELIO STANLEY Attending Unavailable Allergies Allergy Classification Reported Allergen(s) Allergy Type Date of Onset Reaction(s) Facility (1 source) Penicillin Drug Allergy [facility] (20 sources) Penicillins; Translations: [PENICILLINS] Propensity to adverse reactions to drug 7 [facility] (14 sources) Penicillins Drug Intolerance 7 Unknown [facility] (9 sources) Penicillins Propensity to adverse reactions to drug 7 [facility] Medications Current Medications Medication Drug Class(es) [...] Ordered traZODone hydrochloride 100 mg oral tablet (14 sources) Serotonin Reuptake Inhibitor Start: 10-13-2024 End: [...] count, unspecified] Onset: 11-25-2024 11-19-2024 Chronic Endometriosis (11 sources) Endometriosis (clinical); Translations: [Endometriosis, unspecified] Onset: [...] HUMAN PAPILLOMAVIRUS] Onset: 09-23-2022 Episodic Menstrual disorders (18 sources) Menorrhagia; Translations: [Excessive and frequent menstruation with regular cycle] Onset: 01-07-2024 01-07-2024 Chronic Mood disorders (7 sources) Bipolar affective disorder, currently depressed, mild; Translations: [Bipolar disorder, current episode depressed, mild] Onset: 07-14-2024 07-14-2024 Chronic Nutritional deficiencies (6 sources) Vitamin D deficiency; Translations: [Vitamin D deficiency, unspecified] Onset: 07-14-2024 07-14-2024 Chronic Other aftercare (1 source) 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; Translations: [OTH COMMUTATOR ASSEMBLER CURRENT DRUG THERAPY] Onset: 07-13-2022 Episodic Other [...] Name Value Interpretation Reference Range Facil ity ALL CBC WITH AUTO DIFFon BASOPHILS ABSOLUTE AUTO 0.1 [facility] Basophils/100 WBC (Bld) 0.5 % 0.2 - 2.0 % [facility] Eosinophils/100 WBC (Bld) 4 % 0.9 - 7.0 % [facility] Erythrocyte distribution width (RBC) [Ratio] 14 % 11.0 - 15.0 % [facility] Hematocrit (Bld) [Volume fraction] 38.1 % 36.0 - 48.0 % [facility] Hemoglobin (Bld) [Mass/Vol] 12.9 g/dL 12.0 - 16.0 g/dL [facility] IMMATURE GRANULOCYTES ABS AUTO 0.05 High [facility] Immature granulocytes/100 WBC (Bld) 0.4 % 0.0 - 0.5 % [facility] Interpretation and review of laboratory results Abnormal [facility] LYMPHOCYTES ABSOLUTE AUTO 2.5 [facility] Lymphocytes/100 WBC (Bld) 20.4 % Low 20.5 - 60.0 % [facility] MCH (RBC) [Entitic mass] 29.5 pg 26.7 - 34.0 pg [facility] MCHC (RBC) [Mass/Vol] 33.9 g/dL 29.9 - 35.2 g/dL [facility] MCV (RBC) [Entitic vol] 87 fL 81.0 - 99.0 fL [facility] MONOCYTES ABSOLUTE AUTO 0.7 [facility] Monocytes/100 WBC (Bld) 5.8 % 1.7 - 12.0 % [facility] NEUTROPHILS ABSOLUTE AUTO 8.4 High [facility] Neutrophils/100 WBC (Bld) 68.9 % 43.0 - 75.0 % [facility] Platelet mean volume (Bld) [Entitic vol] 12.1 fL 9.5 - 13.5 fL [facility] EO # 0.5 [facility] PLT [address] [facility] RBC 4.38 [facility] WBC 12.2 High [facility] ECG 12-LEADon 04-06-[address] [address] Electrocardiograph Report Signed Patient: FARIDEH HSU MR#: [id number] : 1985 Acct:[id number] Age/Sex: 39 / F ADM Date: 04/06/25 Loc: PST Attending Dr: Aurelio Stanley D.O. Ordering Physician: Aurelio Stanley D.O. 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 Measurements Intervals [place]born Rate: 89 P: 33 AR: 162 QRS: 75 QRSD: 95 T: 48 QT: 357 QTc: 436 Interpretive Statements SINUS RHYTHM Normal ECG Compared to ECG 09/01/2024 10:39:41 No significant changes Electronically Signed On 04-06-2025 18:26:03 EDT by RONALD MOURA M.D. Dictated By: RONALD MOURA Signed By: 04/06/25 1826 DD/ 0716 TD/TT: Enamel Machine Operator: [facility] Radiology, Radiologist, - 04/06/[address] [address] Electrocardiograph Report Signed Patient: FARIDEH HSU MR#: [id number] : 1985 Acct:[id number] Age/Sex: 39 / F ADM Date: 04/06/25 Loc: PST Attending Dr: Aurelio Stanley D.O. Ordering Physician: Aurelio Stanley D.O. 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 Measurements Intervals [place]born Rate: 89 P: 33 AR: 162 QRS: 75 QRSD: 95 T: 48 QT: 357 QTc: 436 Interpretive Statements SINUS RHYTHM Normal ECG Compared to ECG 09/01/2024 10:39:41 No significant changes Electronically Signed On 04-06-2025 18:26:03 EDT by RONALD MOURA M.D. Dictated By: RONALD MOURA Signed By: 04/06/251825 DD/ TD/TT: Enamel Machine Operator: [facility] Radiology Study observation (narrative) [facility] ECG 12-LEADOrdered By: BigCalc logist Radiology on 04-06-2025 [facility] Work Phone: IGP,APTIMA HPV,AGE GDLNon AGE GDLN ACOG TESTING Note . [facility] Comment on above: TESTS RESULT FLAG UN ITS REF RANGE LAB Clinician Provided Cytology Information Source.............Cervix;Endocervix No. of containers..01 ThinPrep Vial Age Algo ACOG Myriam... 30-65 01 FLAG LEGEND: L-Low Normal,H-High Normal,LL-Alert Low,HH-Alert High <-Panic Low,>-Panic High,A-Abnormal,AA-Critical Abnormal Performed at: 01 =[address] [address] Kya Lopez MD, HPV APTIMA Negative Negative [facility] Comment on above: This nucleic acid am plification test detects fourteen high- risk HPV types (16,18,31,33,35,39,45,51,52,56,58,59,66,68) without differentiation. Performed at: =[address] [id number] Crane Man: Kya Lopez MD, Phone: [phone] Performed at: [address] [id number] Crane Man: Kya Lopez MD, Phone: [phone] IGP, APTIMA HPV, RFX 16/18,45 Note . [facility] Comment on above: TESTS RESULT FLAG UN ITS REF RANGE LAB DIAGNOSIS: 02 NEGATIVE FOR INTRAEPITHELIAL LESION OR MALIGNANCY. Specimen adequacy: 02 Satisfactory for evaluation. No endocervical component is identified. Performed by: Jordan Frye, Clam Dredge Boat Captain ([facility]) . 02 Note: Note 02 The Pap [...] <-Panic Low,>-Panic High,A-Abnormal,AA-Critical Abnormal Performed at: [address] [facility] [address] [place] [address] Kya Lopez MD, BRUSH-SPATULA CERVIX ENDOCERVIX [facility] CBC WITH AUTO DIFFERENTIALon 11-25-2024 CELLAVISION ATYPICAL LYMPHOCYTES RELATIVE PERCENT BY MANUAL COUNT 1 % Normal [facility] Comment on above: Result Comment: This is an appended report. These results have been appended to a previously preliminary verified report. Performed By: #### C BCA #### [facility] ([facility]) [address] [place] [address] VIR CELLAVISION DIFFERENTIAL TYPE CELLAVISION DIFFERENTIAL Normal [facility] Comment on above: Result Comment: This is an appended report. These results have been appended to a previously preliminary verified report. Performed By: #### C BCA #### [facility] ([facility]) [address] [place] [address] VIR CELLAVISION EOSINOPHILS ABSOLUTE COUNT (10*3/UL) BY MANUAL COUNT 0.6 10*3/uL High 0.0-0.4 [facility] Comment on above: Result Comment: This is an appended report. These results have been appended to a previously preliminary verified report. Performed By: #### C BCA #### [facility] ([facility]) [address] [place] [address] VIR CELLAVISION EOSINOPHILS PERCENT BY MANUAL COUNT 5 % Normal [facility] Comment on above: Result Comment: This is an appended report. These results have been appended to a previously preliminary verified report. Performed By: #### C BCA #### [facility] ([facility]) [address] [place] [address] VIR CELLAVISION LYMPHOCYTES ABSOLUTE COUNT (10*3/UL) BY MANUAL COUNT 2.5 10*3/uL Normal 1.0-3.5 [facility] Comment on above: Result Comment: This is an appended report. These results have been appended to a previously preliminary verified report. Performed By: #### C BCA #### [facility] ([facility]) [address] [place] [address] VIR CELLAVISION LYMPHOCYTES RELATIVE PERCENT BY MANUAL COUNT 18 % Normal [facility] Comment on above: Result Comment: This is an appended report. These results have been appended to a previously preliminary verified report. Performed By: #### C BCA #### [facility] ([facility]) [address] [place] [address] VIR CELLAVISION MONOCYTES ABSOLUTE COUNT (10*3/UL) IN BLOOD BY MANUAL COUNT 1.2 10*3/uL High 0.0-0.9 [facility] Comment on above: Result Comment: This is an appended report. These results have been appended to a previously preliminary verified report. Performed By: #### C BCA #### [facility] ([facility]) [address] [place] [address] VIR CELLAVISION MONOCYTES RELATIVE PERCENT BY MANUAL COUNT 9 % Normal [facility] Comment on above: Result Comment: This is an appended report. These results have been appended to a previously preliminary verified report. Performed By: #### C BCA #### [facility] ([facility]) [address] [place] [address] VIR CELLAVISION NEUTROPHILS ABSOLUTE COUNT BY MANUAL COUNT 8.7 10*3/uL High 1.5-6.6 [facility] Comment on above: Result Comment: This is an appended report. These results have been appended to a previously preliminary verified report. Performed By: #### C BCA #### [facility] ([facility]) [address] [place] [address] VIR CELLAVISION NEUTROPHILS RELATIVE PERCENT BY MANUAL COUNT 67 % Normal [facility] Comment on above: Result Comment: This is an appended report. These results have been appended to a previously preliminary verified report. Performed By: #### C BCA #### [facility] ([facility]) [address] [place] [address] VIR CELLAVISION POLYCHROMASIA IN BLOOD BY LIGHT MICROSCOPY 1+ Normal [facility] Comment on above: Result Comment: This is an appended report. These results have been appended to a previously preliminary verified report. Performed By: #### C BCA #### [facility] ([facility]) [address] [place] [address] VIR Erythrocyte distribution width (RBC) [Ratio] 14.9 % Normal 11.5-15 [facility] Comment on above: Performed By: #### C BCA #### [facility] ([facility]) [address] [place] [address] VIR Hematocrit (Bld) [Volume fraction] 39.2 % Normal 35-47 [facility] Comment on above: Performed By: #### C BCA #### [facility] ([facility]) [address] [place] [address] VIR Hemoglobin (Bld) [Mass/Vol] 13.3 g/dL Normal 11.7-15.5 [facility] Comment on above: Performed By: #### C BCA #### [facility] ([facility]) [address] [place] [address] VIR MCH (RBC) [Entitic mass] 30.2 pg Normal 27-34 [facility] Comment on above: Performed By: #### C BCA #### [facility] ([facility]) [address] [place] [address] VIR MCHC (RBC) [Mass/Vol] 34.0 g/dL Normal 32-36 [facility] Comment on above: Performed By: #### C BCA #### [facility] ([facility]) [address] [place] [address] VIR MCV (RBC) [Entitic vol] 89 fL Normal 80-100 [facility] Comment on above: Performed By: #### C BCA #### [facility] ([facility]) [address] [place] [address] VIR Platelet mean volume (Bld) [Entitic vol] 11.2 fL Normal 7-12 [facility] Comment on above: Performed By: #### C BCA #### [facility] ([facility]) [address] [place] [address] VIR Platelets (Bld) [#/Vol] 163 10*3/uL Normal 150-450 [facility] Comment on above: Performed By: #### C BCA #### [facility] ([facility]) [address] [place] [address] VIR RBC COUNT 4.41 X10E12/L Normal 3.8-5.2 [facility] Comment on above: Performed By: #### C BCA #### [facility] ([facility]) [address] [place] [address] VIR WBC (Bld) [#/Vol] 13.0 10*3/uL High 4-11 [facility] Comment on above: Performed By: #### C BCA #### [facility] ([facility]) [address] [place] [address] VIR CBC AND AUTO DIFFon 10-14-19 25 ABSOLUTE BASOPHIL 0.1 X10E9/L Normal 0.0-0.2 [facility] Comment on above: Performed By: #### C BCA, HA1C, CMP, 79132-2, 3016-3 #### [facility] ([id number]) [address] [place] [address] ABSOLUTE NEUTROPHIL 11.1 X10E9/L High 1.5-6.6 [facility] Comment on above: Performed By: #### C BCA, HA1C, CMP, 12554-8, 3015-08 #### [facility] ([id number]) [address], [address] [place] [address] Basophils/100 WBC (Bld) 0.5 % Normal [facility] Comment on above: Performed By: #### C BCA, HA1C, CMP, , 3015-08 #### [facility] ([id number]) [address], [address] [place] [address] Eosinophils (Bld) [#/Vol] 0.6 10*3/uL High 0.0-0.4 [facility] Comment on above: Performed By: #### C BCA, HA1C, CMP, 39237-7, 3015-08 #### [facility] ([id number]) [address] [address] [place] [address] Eosinophils/100 WBC (Bld) 4.2 % Normal [facility] Comment on above: Performed By: #### C BCA, HA1C, CMP, , 3015-08 #### [facility] ([id number]) [address], [address] [place] [address] Erythrocyte distribution width (RBC) [Ratio] 15.2 % High 11.5-15.0 [facility] Comment on above: Performed By: #### C BCA, HA1C, CMP, 09645-5, 3015- #### [facility] ([id number]) [address], [address] [place] [address] Hematocrit (Bld) [Volume fraction] 36.5 % Normal 35-47 [facility] Comment on above: Performed By: #### C BCA, HA1C, CMP, 68907-8, 3015-3 #### [facility] ([id number]) [address], [address] [place] [address] Hemoglobin (Bld) [Mass/Vol] 12.4 g/dL Normal 11.7-15.5 [facility] Comment on above: Performed By: #### C BCA, HA1C, CMP, 26137-4, 3015-3 #### [facility] ([id number]) [address], [address] [place] [address] Lymphocytes (Bld) [#/Vol] 3.1 10*3/uL Normal 1.0-3.5 [facility] Comment on above: Performed By: #### C BCA, HA1C, CMP, 94894-3, 3015-08 #### [facility] ([id number]) [address], [address] [place] [address] Lymphocytes/100 WBC (Bld) 19.9 % Normal [facility] Comment on above: Performed By: #### C BCA, HA1C, CMP, 39485-8, 3015-3 #### [facility] ([id number]) [address], [address] [place] [address] MCH (RBC) [Entitic mass] 29.6 pg Normal 27-34 [facility] Comment on above: Performed By: #### C BCA, HA1C, CMP, 30336-5, 3015-3 #### [facility] ([id number]) [address], [address] [place] [address] MCHC (RBC) [Mass/Vol] 33.9 g/dL Normal 32-36 [facility] Comment on above: Performed By: #### C BCA, HA1C, CMP, 55897-5, 3015-3 #### [facility] ([id number]) [address], [address] [place] [address] MCV (RBC) [Entitic vol] 87 fL Normal 80-100 [facility] Comment on above: Performed By: #### C BCA, HA1C, CMP, 12437-0, 3015- #### [facility] ([id number]) [address], [address] [place] [address] Monocytes (Bld) [#/Vol] 0.5 10*3/uL Normal 0-0.9 [facility] Comment on above: Performed By: #### C BCA, HA1C, CMP, 82888-2, 3015- #### [facility] ([id number]) [address], [address] [place] [address] Monocytes/100 WBC (Bld) 3.3 % Normal [facility] Comment on above: Performed By: #### C BCA, HA1C, CMP, 84444-4, 3015-08 #### [facility] ([id number]) [address], [address] [place] [address] Neutrophils/100 WBC (Bld) 72.1 % Normal [facility] Comment on above: Performed By: #### C BCA, HA1C, CMP, 33538-2, 3015- #### [facility] ([id number]) [address], [address] [place] [address] Platelet mean volume (Bld) [Entitic vol] 11.0 fL Normal 7-12 [facility] Comment on above: Performed By: #### C BCA, HA1C, CMP, 92602-1, 3015- #### [facility] ([id number]) [address], [address] [place] [address] Platelets (Bld) [#/Vol] 189 10*3/uL Normal 150-450 [facility] Comment on above: Performed By: #### C BCA, HA1C, CMP, 56084-0, 3015- #### [facility] ([id number]) [address], [address] [place] [address] RBC COUNT 4.17 X10E12/L Normal 3.80-5.20 [facility] Comment on above: Performed By: #### C BCA, HA1C, CMP, 16433-0, 3015-3 #### [facility] ([id number]) [address], [address] [place] [address] WBC (Bld) [#/Vol] 15.4 10*3/uL High 4.0-11.0 [facility] Comment on above: Performed By: #### C BCA, HA1C, CMP, 30447-2, 3015- #### [facility] ([id number]) [address], [address] [place] [address] COMPREHENSIVE METABOLIC PANE Ruiz 10-13-2024 Albumin [Mass/Vol] 3.7 g/dL Normal 3.2-5.3 [facility] Comment on above: Performed By: #### C BCA, HA1C, CMP, 48110-2, 3015- #### [facility] ([id number]) [address], [address] [place] [address] ALP [Catalytic activity/Vol] 154 U/L High 39-130 [facility] Comment on above: Performed By: #### C BCA, HA1C, CMP, 23845-6, 3015- #### [facility] ([id number]) [address], [address] [place] [address] ALT [Catalytic activity/Vol] 53 U/L High 0-31 [facility] Comment on above: Performed By: #### C BCA, HA1C, CMP, 64769-1, 3015-3 #### [facility] ([id number]) [address] [place] [address] Anion gap [Moles/Vol] 8 mmol/L Normal 5-15 [facility] Comment on above: Performed By: #### C BCA, HA1C, CMP, 66756-3, 3015-3 #### [facility] ([id number]) [address], [address] [place] [address] AST [Catalytic activity/Vol] 29 U/L Normal 0-41 [facility] Comment on above: Performed By: #### C BCA, HA1C, CMP, 29001-9, 3015-3 #### [facility] ([id number]) [address] [place] [address] Bilirubin [Mass/Vol] 0.2 mg/dL Low 0.3-1.[address] [facility] Comment on above: Performed By: #### C BCA, HA1C, CMP, 63839-8, 3015-3 #### [facility] ([id number]) [address], [address] [place] [address] Calcium [Mass/Vol] 8.8 mg/dL Normal 8.5-10.5 [facility] Comment on above: Performed By: #### C BCA, HA1C, CMP, 49312-0, 3015-3 #### [facility] ([id number]) [address] [place] [address] Chloride [Moles/Vol] 105 mmol/L Normal 98-[address] [facility] Comment on above: Performed By: #### C BCA, HA1C, CMP, 59580-2, 3015-3 #### [facility] ([id number]) [address] [place] [address] CO2 [Moles/Vol] 24 mmol/L Normal 22-32 [facility] Comment on above: Performed By: #### C BCA, HA1C, CMP, 16735-0, 3015-3 #### [facility] ([id number]) [address] [place] [address] Creatinine [Mass/Vol] 0.74 mg/dL Normal 0.40-1.00 [facility] Comment on above: Result Comment: METH OD TRACEABLE TO IDMS STANDARD Performed By: #### C BCA, HA1C, CMP, 67573-1, 3015-3 #### [facility] ([id number]) [address] [address] [place] [address] eGFR (CKD-EPI) NON-RACE DEPENDENT >90 Normal >59 [facility] Comment on above: Result Comment: Reported eGFR is based on the CKD-EPI 2020 equation that does not use a race coefficient. Performed By: #### C BCA, HA1C, CMP, 53863-8, 3015-3 #### [facility] ([id number]) [address] [place] [address] Glucose [Mass/Vol] 99 mg/dL Normal 65-99 [facility] Comment on above: Performed By: #### C BCA, HA1C, CMP, 81461-3, 3015-3 #### [facility] ([id number]) [address] [place] [address] Potassium [Moles/Vol] 3.6 mmol/L Normal 3.5-5.0 [facility] Comment on above: Performed By: #### C BCA, HA1C, CMP, 80745-4, 3015- #### [facility] ([id number]) [address] [address] [place] [address] Protein [Mass/Vol] 6.7 g/dL Normal 6.0-8.0 [facility] Comment on above: Performed By: #### C BCA, HA1C, CMP, 03704-1, 3015-3 #### [facility] ([id number]) [address] [address] [place] [address] Sodium [Moles/Vol] 137 mmol/L Normal 134-146 [facility] Comment on above: Performed By: #### C BCA, HA1C, CMP, 73381-7, 6-3 #### [facility] ([id number]) [address] [place] [address] Urea nitrogen [Mass/Vol] 11 mg/dL Normal 5-23 [facility] Comment on above: Performed By: #### C BCA, HA1C, CMP, 13656-8, 6-3 #### [facility] ([id number]) [address], [facility] [address] [place] [address] HGB A1C (GLYCO-HGB)on 2024 Glucose [Mass/Vol] 111 mg/dL Normal [facility] Comment on above: Performed By: #### C BCA, HA1C, CMP, 64665-2, 6- #### [facility] ([id number]) [address], [address] [address] HbA1c (Bld) [Mass fraction] 5.5 % Normal 4.4-5.6 [facility] Comment on above: Result Comment: NOTE ADA Guidelines Result HgbA1c Normal : less than 5.7 % Prediabetes : 5.7 % to 6.4 % Diabetes : > 6.4 % Use with caution in patients with abnormal hemoglobin variants as the half-life of red blood cells and in vivo glycation rates are affected. Performed By: #### C BCA, HA1C, CMP, 67263-2, 6-3 #### [facility] ([id number]) [address], [address] [place] [address] Lipid 1996 panelon Cholesterol [Mass/Vol] 182 mg/dL Normal 150-200 [facility] Comment on above: Performed By: #### C BCA, HA1C, CMP, 86197-1, 3016-3 #### [facility] ([id number]) [address], [address] [place] [address] Cholesterol in HDL [Mass/Vol] 33 mg/dL Low >39 [facility] Comment on above: Result Comment: HDL <40 mg/dL - High Risk HDL > or = 40mg/dL- Desirable HDL >60 mg/dL - Negative Risk Performed By: #### C BCA, HA1C, CMP, 33475-0, 3016-3 #### [facility] ([id number]) [address], [address] [place] [address] Cholesterol in LDL [Mass/Vol] 90 mg/dL Normal <130 [facility] Comment on above: Result Comment: LDL <100 mg/dL - Desirable LDL >160 mg/dL - High Risk Performed By: #### C BCA, HA1C, CMP, 40106-3, 6-3 #### [facility] ([id number]) [address], [address] [place] [address] Cholesterol in VLDL [Mass/Vol] 59 mg/dL High 0-30 [facility] Comment on above: Performed By: #### C BCA, HA1C, CMP, 45239-3, 6-3 #### [facility] ([id number]) [address], [address] [place] [address] CHOLESTEROL:HDL 5.5 High 1.0-5.0 [facility] Comment on above: Performed By: #### C BCA, HA1C, CMP, 19510-6, 6-3 #### [facility] ([id number]) [address], [address] [place] [address] Triglyceride [Mass/Vol] 294 mg/dL High 27-150 [facility] Comment on above: Performed By: #### C BCA, HA1C, CMP, 48395-4, 6-3 #### [facility] ([id number]) [address] [facility], [address] [place] [address] TSH Qnon 10-13-2024 TSH 1.66 uIU/mL Normal 0.49-4.67 [facility] Comment on above: Performed By: #### C BCA, HA1C, CMP, 65625-2, 3016-3 #### [facility] ([id number]) [address] [facility], [address] [place] [address] ECG 12-LEADon 09-03-2024 [address] [place] [id number] Electrocardiograph Report Signed Patient: FARIDEH HSU MR#: [id number] : 1985 Acct:[id number] Age/Sex: 39 / F ADM Date: 09/01/24 Loc: [facility] Attending Dr: Aurelio Stanley D.O. Ordering Physician: Aurelio Stanley D.O. 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 Measurements Intervals [place] Rate: 90 P: 35 AR: 162 QRS: 76 QRSD: 98 T: 54 QT: 377 QTc: 462 Interpretive Statements SINUS RHYTHM No previous ECG available for comparison Electronically Signed On 09-02-2024 13:04:38 EST by AFIA WESTBROOK M.D. Dictated By: AFIA WESTBROOK M.D. Signed By: 09/03/24 0917 DD/ 1039 TD/TT: Enamel Machine Operator: [facility] Radiology, Radiologist, - 09/03/[address] [address] Electrocardiograph Report Signed Patient: FARIDEH HSU MR#: [id number] : 1985 Acct:[id number] Age/Sex: 39 / F ADM Date: 09/01/24 Loc: [facility] Attending Dr: Aurelio Stanley D.O. Ordering Physician: Aurelio Stanley D.O. 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 Measurements Intervals [place] Rate: 90 P: 35 AR: 162 QRS: 76 QRSD: 98 T: 54 QT: 377 QTc: 462 Interpretive Statements SINUS RHYTHM No previous ECG available for comparison Electronically Signed On 09-02-2024 13:04:38 EST by AFIA WESTBROOK M.D. Dictated By: AFIA WESTBROOK M.D. 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 1 mg/dL [facility] Chloride [Moles/Vol] 104 mmol/L 98 - 107 mmol/L [facility] CO2 [Moles/Vol] 26.1 mmol/L 21.0 - 32.0 mmol/L [facility] Creatinine [Mass/Vol] 0.82 mg/dL 0.55 - 1.02 mg/dL [facility] GFR/1.73 sq M.predicted CKD-EPI (S/P/Bld) [Vol rate/Area] >60 >=60 mL/min/1.73m 2 [facility] Glucose [Mass/Vol] 88 mg/dL 74 - 106 mg/dL [facility] Potassium [Moles/Vol] 4 mmol/L 3.5 - 5.1 mmol/L [facility] Sodium [Moles/Vol] 138 mmol/L 136 - 145 mmol/L [facility] TBH EGFR-NON AF MAURITIAN >60 >=60 mL/min/1.73m 2 [facility] Urea nitrogen [Mass/Vol] 16 mg/dL 7.0 - 18.0 mg/dL [facility] Urea nitrogen/Creatinine [Mass ratio] 19.5 mg/mg [facility] ECG 12-LEADon 09-01-2024 Radiology Study observation (narrative) [facility] Vitamin D+Metabolites [Mass/ Vol]on 07-14-2024 VITAMIN D 25 HYD TOT 31.6 ng/mL Normal 30-100 [facility] Comment on above: Result Comment: Vitamin D status 25 [place] Vitamin D Deficiency <20 ng/mL Insufficiency 20-29 ng/mL Sufficiency 30-100 ng/mL Toxicity >100 ng/mL NOTE: A pediatric reference range has not been established by the orchid transplanter of this kit. The [place] [employer] recommends a Vitamin D level of = or >20ng/mL in infants and children. Performed By: #### 3 5365-6 #### [facility] ([id number]) [address] [place] [address], [address] [place] [address] Lab Reportson 02-21-2023 Lab Reports [id number]#1.00CD:127 Normal [facility] RAD - CT Reporton 02-21-2023 RAD - CT Report [id number] #1.00CD:127 Normal [facility] Physician Referralon 023 Physician Referral [id number] #1.00CD:127 Normal [facility] PAP ACOG PANEL 2: 30 to 65on 09-28-2022 . . Normal [facility] Comment on above: Result Comment: Perf ormed at: WB Performed By: #### 4 [id number] #### [facility] [address] [place] [address] Dr. Oneyda Rodriguez Age Gdln ACOG Testing 30-65 Normal [facility] Comment on above: Performed By: #### 4 [id number] #### [facility] [address] [place] [address] Dr. Oneyda Rodriguez DIAGNOSIS: Comment Normal [facility] Comment on above: Result Comment: NEGA TIVE FOR INTRAEPITHELIAL LESION OR MALIGNANCY. REACTIVE CELLULAR CHANGES AND/OR REPAIR ARE PRESENT. Performed at: WB Performed By: #### 4 [id number] #### [facility] [address] [place] [address] Dr. Oneyda Rodriguez Electronically signed by: Comment Normal [facility] Comment on above: Result Comment: Gila Lopez MD, Pathologist Performed at: WB Performed By: #### 4 [id number] #### [facility] [address] [place] [address] Dr. Oneyda Rodriguez HPV Aptima Negative Normal Negative [facility] Comment on above: Result Comment: This nucleic acid amplification test detects fourteen high-risk HPV types (16,18,31,33,35,39,45,51,52,56,58,59,66,68) without differentiation. Performed at: =G Performed By: #### 4 [id number] #### [facility] [address] [place] [address] Dr. Oneyda Rodriguez HPV Genotype Reflex Comment Normal [facility] Comment on above: Result Comment: Crit eria not met, HPV Genotype not performed. Performed at: WB Performed By: #### 4 [id number] #### [facility] [address] [place] [address] Dr. Oneyda Rodriguez Methodology: Comment [facility] Comment on above: Result Comment: This liquid based ThinPrep(R) pap test was screened with the use of an image guided system. Performed at: WB Performed By: #### 4 [id number] #### [facility] [address] [place] [address] Dr. Oneyda Rodriguez Note: Comment Normal [facility] Comment on above: Result Comment: The Pap smear is a screening test designed to aid in the detection of premalignant and malignant conditions of the uterine cervix. It is not a diagnostic procedure and should not be used as the sole means of detecting cervical cancer. Both false-positive and false-negative reports do occur. . Performed at: WB Performed By: #### 4 [id number] #### [facility] [address] [place] [address] Dr. Oneyda Rodriguez Performed by: Comment Normal [facility] Comment on above: Result Comment: Katie Elliott, Supervisory Rate Setter (ASCP) Performed at: WB Performed By: #### 4 [id number] #### [facility] [address] [place] [address] Dr. Oneyda Rodriguez Specimen adequacy: Comment Normal [facility] Comment on above: Result Comment: Sati sfactory for evaluation. Endocervical and/or squamous metaplastic cells (endocervical component) are present. Performed at: WB Performed By: #### 4 [id number] #### [facility] [address] [place] [address] Dr. Oneyda Rodriguez CULTURE URINEon 06-11-2022 CULTURE [...] F Trimethoprim/Sulfame thoxazole <=20 S F Normal [facility] Comment on above: Performed By: #### U RCX #### [facility] [address] [place] [address] Dr. Oneyda Rodriguez CBC AUTO DIFFon 06-08-2022 BASO # 0.1 103/ul Normal 0.0-0.1 [facility] Comment on above: Performed By: #### C BC #### [facility] [address] [place] [address] Dr. Oneyda Rodriguez Basophils/100 WBC (Bld) 0.5 % Normal 0.2-2.0 [facility] Comment on above: Performed By: #### C BC #### [facility] [address] [place] [address] Dr. Oneyda Rodriguez EO # 0.2 103/ul Normal 0.0-0.7 [facility] Comment on above: Performed By: #### C BC #### [facility] [address] [place] [address] Dr. Oneyda Rodriguez Eosinophils/100 WBC (Bld) 1.6 % Normal 0.9-7.0 [facility] Comment on above: Performed By: #### C BC #### [facility] [address] [place] [address] Dr. Oneyda Rodriguez Erythrocyte distribution width (RBC) [Ratio] 13.4 % Normal 11.0-15.0 [facility] Comment on above: Performed By: #### C BC #### [facility] [address] [place] [address] Dr. Oneyda Rodriguez Hematocrit (Bld) [Volume fraction] 35.4 % Critically low 36.0-48.0 [facility] Comment on above: Performed By: #### C BC #### [facility] [address] [place] [address] Dr. Oneyda Rodriguez Hemoglobin (Bld) [Mass/Vol] 12.2 g/dL Normal 12.0-16.0 [facility] Comment on above: Performed By: #### C BC #### [facility] [address] [place] [address] Dr. Oneyda Rodriguez IG # 0.05 10e3/ul Critically high 0.00-0.03 [facility] Comment on above: Performed By: #### C BC #### [facility] [address] [place] [address] Dr. Oneyda Rodriguez IG % 0.4 % Normal 0.0-0.5 [facility] Comment on above: Performed By: #### C BC #### [facility] [address] [place] [address] Dr. Oneyda Rodriguez LYMPH # 2.2 103/ul Normal 1.2-3.8 [facility] Comment on above: Performed By: #### C BC #### [facility] [address] [place] [address] Dr. Oneyda Rodriguez Lymphocytes/100 WBC (Bld) 16.6 % Critically low 20.5-60.0 [facility] Comment on above: Performed By: #### C BC #### [facility] [address] [place] [address] Dr. Oneyda Rodriguez MANUAL DIFF REQ NO Normal [facility] Comment on above: Performed By: #### C BC #### [facility] [address] [place] [address] Dr. Oneyda Rodriguez MCH (RBC) [Entitic mass] 29.7 pg Normal 26.7-34.0 [facility] Comment on above: Performed By: #### C BC #### [facility] [address] [place] [address] Dr. Oneyda Rodriguez MCHC (RBC) [Mass/Vol] 34.5 g/dL Normal 29.9-35.2 [facility] Comment on above: Performed By: #### C BC #### [facility] [address] [place] [address] Dr. Oneyda Rodriguez MCV (RBC) [Entitic vol] 86.1 fL Normal 81.0-99.0 [facility] Comment on above: Performed By: #### C BC #### [facility] [address] [place] [address] Dr. Oneyda Rodriguez MONO # 0.6 103/ul Normal 0.3-0.8 [facility] Comment on above: Performed By: #### C BC #### [facility] [address] [place] [address] Dr. Oneyda Rodriguez Monocytes/100 WBC (Bld) 4.2 % Normal 1.7-12.0 [facility] Comment on above: Performed By: #### C BC #### [facility] [address] [place] [address] Dr. Oneyda Rodriguez NEUT # 10.3 103/ul Critically high 1.4-6.5 [facility] Comment on above: Performed By: #### C BC #### [facility] [address] [place] [address] Dr. Oneyda Rodriguez Neutrophils/100 WBC (Bld) 76.7 % Critically high 43.0-75.0 [facility] Comment on above: Performed By: #### C BC #### [facility] [address] [place] [address] Dr. Oneyda Rodriguez Platelet mean volume (Bld) [Entitic vol] 11.1 fL Normal 9.5-13.5 [facility] Comment on above: Performed By: #### C BC #### [facility] [address] [place] [address] Dr. Oneyda Rodriguez PLT 184 103/ul Normal 150-450 [facility] Comment on above: Performed By: #### C BC #### [facility] [address] [place] [address] Dr. Oneyda Rodriguez RBC 4.11 106/ul Critically low 4.20-5.40 [facility] Comment on above: Performed By: #### C BC #### [facility] [address] [place] [address] Dr. Oneyda Rodriguez WBC 13.4 103/ul Critically high 4.0-11.0 [facility] Comment on above: Performed By: #### C BC #### [facility] [address] [place] [address] Dr. Oneyda Rodriguez ER URINE PROFILEon 2 Bilirubin Ql (U) Negative Normal NEGATIVE [facility] Comment on above: Performed By: #### E BILL TRAORE #### [facility] [address] [place] [address] Dr. Oneyda Rodriguez Clarity (U) CLEAR Normal CLEAR [facility] Comment on above: Performed By: #### E RUR, UMICRO #### [facility] [address] [place] [address] Dr. Oneyda Rodriguez Color (U) LT. YELLOW Normal YELLOW [facility] Comment on above: Performed By: #### Lamonte TRAORE UMICRO #### [facility] [address] [place] [address] Dr. Oneyda FREDERICK A micrscopic examination will be performed if indicated. Normal [facility] Comment on above: Performed By: #### Lamonte TRAORE UMICRO #### [facility] [address] [place] [address] Dr. Oneyda Rodriguez Glucose Ql (U) Negative Normal NEGATIVE [facility] Comment on above: Performed By: #### Lamonte TRAORE UMICRO #### [facility] [address] [place] [address] Dr. Oneyda Rodriguez Hemoglobin Ql (U) SMALL Abnormal NEGATIVE [facility] Comment on above: Performed By: #### Lamonte TRAORE UMICRO #### [facility] [address] [place] [address] Dr. Oneyda Rodriguez Ketones Ql (U) Negative Normal NEGATIVE [facility] Comment on above: Performed By: #### Lamonte TRAORE UMICRO #### [facility] [address] [place] [address] Dr. Oneyda Rodriguez LEUKOCYTES SMALL Abnormal NEGATIVE [facility] Comment on above: Performed By: #### Lamonte TRAORE UMICRO #### [facility] [address] [place] [address] Dr. Oneyda Rodriguez Nitrite Ql (U) Positive Abnormal NEGATIVE [facility] Comment on above: Performed By: #### Lamonte TRAORE UMICRO #### [facility] [address] [place] [address] Dr. Oneyda Rodriguez pH (U) 6.0 [pH] Normal 5-9 [facility] Comment on above: Performed By: #### Lamonte TRAORE UMICRO #### [facility] [address] [place] [address] Dr. Oneyda Rodriguez SPEC GRAVITY 1.025 Normal 1.005-<=1.025 [facility] Comment on above: Performed By: #### HENRI LIRO #### [facility] [address] [place] [address] Dr. Oneyda Rodriguez UA PROTEIN TRACE Normal NEGATIVE/ TRACE [facility] Comment on above: Performed By: #### HENRI LIRO #### [facility] [address] [place] [address] Dr. Oneyda Rodriguez UR MICRO IND INDICATED Normal [facility] Comment on above: Performed By: #### HENRI LIRO #### [facility] [address] [place] [address] Dr. Oneyda Rodriguez Urobilinogen Qn (U) 0.2 {Saul'U}/dL Normal 0.2 - 1. 0 [facility] Comment on above: Performed By: #### BILL LI #### [facility] [address] [place] [address] Dr. Oneyda Rodriguez PREG HCG QUALon 06-08-2022 , QUAL Negative Normal NEGATIVE [facility] Comment on above: Performed By: #### HENRI LIRO #### [facility] [address] [place] [address] Dr. Oneyda Rodriguez PROF 14(COMP METB)on 022 Albumin [Mass/Vol] 3.6 g/dL Normal 3.4-5.0 [facility] Comment on above: Performed By: #### C MP #### [facility] [address] [place] [address] Dr. Oneyda Rodriguez Albumin/Globulin [Mass ratio] 1.1 {ratio} Normal [facility] Comment on above: Performed By: #### C MP #### [facility] [address] [place] [address] Dr. Oneyda Rodriguez ALP [Catalytic activity/Vol] 115 U/L Normal 46-116 [facility] Comment on above: Performed By: #### C MP #### [facility] [address] [place] [address] Dr. Oneyda Rodriguez ALT [Catalytic activity/Vol] 52 U/L Normal 14-59 [facility] Comment on above: Performed By: #### C MP #### [facility] [address] [place] [address] Dr. Oneyda Rodriguez Anion gap [Moles/Vol] 8.2 mmol/L Normal [facility] Comment on above: Performed By: #### C MP #### [facility] [address] [place] [address] Dr. Oneyda Rodriguez AST [Catalytic activity/Vol] 21 U/L Normal 15-37 [facility] Comment on above: Performed By: #### C MP #### [facility] [address] [place] [address] Dr. Oneyda Rodriguez Bilirubin [Mass/Vol] 0.1 mg/dL Critically low 0.2-1.0 [facility] Comment on above: Performed By: #### C MP #### [facility] [address] [place] [address] Dr. Oneyda Rodriguez Calcium [Mass/Vol] 8.4 mg/dL Critically low 8.5-10.1 [facility] Comment on above: Performed By: #### C MP #### [facility] [address] [place] [address] Dr. Oneyda Rodriguez Chloride [Moles/Vol] 105 mmol/L Normal 98-107 [facility] Comment on above: Performed By: #### C MP #### [facility] [address] [place] [address] Dr. Oneyda Rodriguez CO2 [Moles/Vol] 28.3 mmol/L Normal 21.0-32.0 [facility] Comment on above: Performed By: #### C MP #### [facility] [address] [place] [address] Dr. Oneyda Rodriugez Creatinine [Mass/Vol] 0.84 mg/dL Normal 0.55-1.02 [facility] Comment on above: Performed By: #### C MP #### [facility] [address] [place] [address] Dr. Oneyda Rodriguez EGFR-AF MAURITIAN >60 Normal >=60 [facility] Comment on above: Performed By: #### C MP #### [facility] [address] [place] [address] [address] Oneyda Rodriguez EGFR-NON AF MAURITIAN >60 Normal >=60 [facility] Comment on above: Performed By: #### C MP #### [facility] [address] [address] [address] Oneyda Rodriguez Globulin (S) [Mass/Vol] 3.3 g/dL Normal [facility] Comment on above: Performed By: #### C MP #### [facility] [address] [place] [address] [address] Oneyda Rodriguez Glucose [Mass/Vol] 85 mg/dL Normal 74-106 [facility] Comment on above: Performed By: #### C MP #### [facility] [address] [place] [address] Dr. Oneyda Rodriguez Potassium [Moles/Vol] 3.5 mmol/L Normal 3.5-5.1 [facility] Comment on above: Performed By: #### C MP #### [facility] [address] [address] [address] Oneyda Rodriguez Protein [Mass/Vol] 6.9 g/dL Normal 6.4-8.2 [facility] Comment on above: Performed By: #### C MP #### [facility] [address] [place] [address] [address] Oneyda Rodriguez Sodium [Moles/Vol] 138 mmol/L Normal 136-145 [facility] Comment on above: Performed By: #### C MP #### [facility] [address] [address] [address] Oneyda Rodriguez Urea nitrogen [Mass/Vol] 14.0 mg/dL Normal 7.0-18.0 [facility] Comment on above: Performed By: #### C MP #### [facility] [address] [address] [address] Oneyda Rodriguez Urea nitrogen/Creatinine [Mass ratio] 16.7 mg/mg Normal [facility] Comment on above: Performed By: #### C MP #### [facility] [address] [place] [address] Dr. Oneyda Rodriguez URINE MICROSCOPIC ONLYon BACTERIA TRACE Abnormal NONE SEEN [facility] Comment on above: Performed By: #### Lamonte TRAORE UMICRO #### [facility] [address] [place] [address] Dr. Oneyda Rodriguez Bacteria identified Cx Nom (U) INDICATED Normal [facility] Comment on above: Performed By: #### Lamonte TRAORE UMICRO #### [facility] [address] [place] [address] Dr. Oneyda Rodriguez CAST NONE SEEN Normal NONE SEEN [facility] Comment on above: Performed By: #### Lamonte TRAORE UMICRO #### [facility] [address] [place] [address] Dr. Oneyda Rodriguez Crystals LM Nom (Urine sed) NONE SEEN Normal NONE SEEN [facility] Comment on above: Performed By: #### Lamonte TRAORE UMICRO #### [facility] [address] [place] [address] Dr. Oneyda Rodriguez Epithelial cells LM Ql (Urine sed) RARE Normal NONE SEEN /RARE [facility] Comment on above: Performed By: #### Lamonte TRAORE UMICRO #### [facility] [address] [place] [address] Dr. Oneyda Rodriguez MUCOUS NONE SEEN Normal NONE SEEN [facility] Comment on above: Performed By: #### Lamonte TRAORE UMICRO #### [facility] [address] [place] [address] Dr. Oneyda Rodriguez RBC NONE SEEN Abnormal 0-2 [facility] Comment on above: Performed By: #### Lamonte TRAORE UMICRO #### [facility] [address] [place] [address] Dr. Oneyda Rodriguez WBC 2-5 Abnormal NONE SEEN [facility] Comment on above: Performed By: #### Lamonte TRAORE UMICRO #### [facility] [address] [place] [address] Dr. Oneyda Rodriguez CBC AUTO DIFFon 05-25-2022 BASO # 0.1 103/ul Normal 0.0-0.1 [facility] Comment on above: Performed By: #### C BC #### [facility] [address] [place] [address] Dr. Oneyda Rodriguez Basophils/100 WBC (Bld) 0.5 % Normal 0.2-2.0 [facility] Comment on above: Performed By: #### C BC #### [facility] [address] [place] [address] Dr. Oneyda Rodriguez EO # 0.3 103/ul Normal 0.0-0.7 [facility] Comment on above: Performed By: #### C BC #### [facility] [address] [place] [address] Dr. Oneyda Rodriguez Eosinophils/100 WBC (Bld) 2.4 % Normal 0.9-7.0 [facility] Comment on above: Performed By: #### C BC #### [facility] [address] [place] [address] Dr. Oneyda Rodriguez Erythrocyte distribution width (RBC) [Ratio] 14.8 % Normal 11.0-15.0 [facility] Comment on above: Performed By: #### C BC #### [facility] [address] [place] [address] Dr. Oneyda Rodriguez Hematocrit (Bld) [Volume fraction] 36.0 % Normal 36.0-48.0 [facility] Comment on above: Performed By: #### C BC #### [facility] [address] [place] [address] Dr. Oneyda Rodriguez Hemoglobin (Bld) [Mass/Vol] 11.8 g/dL Critically low 12.0-16.0 [facility] Comment on above: Performed By: #### C BC #### [facility] [address] [place] [address] Dr. Oneyda Rodriguez IG # 0.05 10e3/ul Critically high 0.00-0.03 [facility] Comment on above: Performed By: #### C BC #### [facility] [address] [place] [address] Dr. Oneyda Rodriguez IG % 0.4 % Normal 0.0-0.5 [facility] Comment on above: Performed By: #### C BC #### [facility] [address] [place] [address] Dr. Oneyda Rodriguez LYMPH # 3.2 103/ul Normal 1.2-3.8 [facility] Comment on above: Performed By: #### C BC #### [facility] [address] [place] [address] Dr. Oneyda Rodriguez Lymphocytes/100 WBC (Bld) 24.3 % Normal 20.5-60.0 [facility] Comment on above: Performed By: #### C BC #### [facility] [address] [place] [address] Dr. Oneyda Rodriguez MANUAL DIFF REQ NO Normal [facility] Comment on above: Performed By: #### C BC #### [facility] [address] [place] [address] Dr. Oneyda Rodriguez MCH (RBC) [Entitic mass] 29.2 pg Normal 26.7-34.0 [facility] Comment on above: Performed By: #### C BC #### [facility] [address] [place] [address] Dr. Oneyda Rodriguez MCHC (RBC) [Mass/Vol] 32.8 g/dL Normal 29.9-35.2 [facility] Comment on above: Performed By: #### C BC #### [facility] [address] [place] [address] Dr. Oneyda Rodriguez MCV (RBC) [Entitic vol] 89.1 fL Normal 81.0-99.0 [facility] Comment on above: Performed By: #### C BC #### [facility] [address] [place] [address] Dr. Oneyda Rodriguez MONO # 0.6 103/ul Normal 0.3-0.8 [facility] Comment on above: Performed By: #### C BC #### [facility] [address] [place] [address] Dr. Oneyda Rodriguez Monocytes/100 WBC (Bld) 4.9 % Normal 1.7-12.0 [facility] Comment on above: Performed By: #### C BC #### [facility] [address] [address] [address] Oneyda Rodriguez NEUT # 8.8 103/ul Critically high 1.4-6.5 [facility] Comment on above: Performed By: #### C BC #### [facility] [address] [address] [address] Oneyda Rodriguez Neutrophils/100 WBC (Bld) 67.5 % Normal 43.0-75.0 [facility] Comment on above: Performed By: #### C BC #### [facility] [address] [address] [address] Oneyda Rodriguez Platelet mean volume (Bld) [Entitic vol] 12.5 fL Normal 9.5-13.5 [facility] Comment on above: Performed By: #### C BC #### [facility] [address] [address] [address] Oneyda Rodriguez PLT 213 103/ul Normal 150-450 [facility] Comment on above: Performed By: #### C BC #### [facility] [address] [address] [address] Oneyda Rodriguez RBC 4.04 106/ul Critically low 4.20-5.40 [facility] Comment on above: Performed By: #### C BC #### [facility] [address] [address] [address] Oneyda Rodriguez WBC 13.1 103/ul Critically high 4.0-11.0 [facility] Comment on above: Performed By: #### C BC #### [facility] [address] [address] [address] Oneyda Rodriguez CRPon 11-23-2021 CRP [Mass/Vol] mg/L Normal <=1.0 [facility] Comment on above: Performed By: #### BILL LI #### [facility] [address] [address] [address] HEAD WO CONon [...] by: SHARON MC Date: 2021-11-23 06:36 Normal [facility] LACTATE/LACTIC ACIDon 2021 Lactate [Moles/Vol] 0.7 mmol/L Normal 0.4-1.9 [facility] Comment on above: Performed By: #### Ketan ACT #### [facility] [address] [place] [address] Dr. Oneyda Rodriguez PROF 14(COMP METB)on 022 Albumin [Mass/Vol] 3.9 g/dL Normal 3.4-5.0 [facility] Comment on above: Performed By: #### BILL LI #### [facility] [address] [address] [address] Oneyda Rodriguez Albumin/Globulin [Mass ratio] 1.1 {ratio} Normal [facility] Comment on above: Performed By: #### BILL LI #### [facility] [address] [place] [address] Dr. Oneyda Rodriguez ALP [Catalytic activity/Vol] 107 U/L Normal 46-116 [facility] Comment on above: Performed By: #### BILL LI #### [facility] [address] [place] [address] Dr. Oneyda Rodriguez ALT [Catalytic activity/Vol] 62 U/L Critically high 14-59 [facility] Comment on above: Performed By: #### BILL LI #### [facility] [address] [address] [address] Oneyda Rodriguez Anion gap [Moles/Vol] 12.2 mmol/L Normal [facility] Comment on above: Performed By: #### Lamonte TRAORE UMICRO #### [facility] [address] [address] [address] Oneyda Rodriguez AST [Catalytic activity/Vol] 26 U/L Normal 15-37 [facility] Comment on above: Performed By: #### Lamonte TRAORE, UMICRO #### [facility] [address] [place] [address] Dr. Oneyda Rodriguez Bilirubin [Mass/Vol] 0.3 mg/dL Normal 0.2-1.0 [facility] Comment on above: Performed By: #### Lamonte TRAORE, UMICRO #### [facility] [address] [place] [address] Dr. Oneyda Rodriguez Calcium [Mass/Vol] 8.8 mg/dL Normal 8.5-10.1 [facility] Comment on above: Performed By: #### Lamonte TRAORE UMICRO #### [facility] [address] [place] [address] Dr. Oneyda Rodriguez Chloride [Moles/Vol] 104 mmol/L Normal 98-107 [facility] Comment on above: Performed By: #### Lamonte TRAORE, UMICRO #### [facility] [address] [place] [address] Dr. Oneyda Rodriguez CO2 [Moles/Vol] 28.9 mmol/L Normal 21.0-32.0 [facility] Comment on above: Performed By: #### Lamonte TRAORE, UMICRO #### [facility] [address] [place] [address] Dr. Oneyda Rodriguez Creatinine [Mass/Vol] 0.73 mg/dL Normal 0.55-1.02 [facility] Comment on above: Performed By: #### Lamonte TRAORE, UMICRO #### [facility] [address] [place] [address] Dr. Oneyda Rodriguez EGFR-AF MAURITIAN >60 Normal >=60 [facility] Comment on above: Performed By: #### E CHADR, UMICRO #### [facility] [address] [place] [address] Dr. Oneyda Rodriguez EGFR-NON AF MAURITIAN >60 Normal >=60 [facility] Comment on above: Performed By: #### E CHADR, UMICRO #### [facility] [address] [place] [address] Dr. Oneyda Rodriguez Globulin (S) [Mass/Vol] 3.4 g/dL Normal [facility] Comment on above: Performed By: #### E CHADR, UMICRO #### [facility] [address] [place] [address] Dr. Oneyda Rodriguez Glucose [Mass/Vol] 105 mg/dL Normal 74-106 [facility] Comment on above: Performed By: #### E LEÓN, UMICRO #### [facility] [address] [place] [address] Dr. Oneyda Rodriguez Potassium [Moles/Vol] 3.1 mmol/L Critically low 3.5-5.1 [facility] Comment on above: Performed By: #### Lamonte TRAORE, UMICRO #### [facility] [address] [place] [address] Dr. Oneyda Rodriguez Protein [Mass/Vol] 7.3 g/dL Normal 6.4-8.2 [facility] Comment on above: Performed By: #### E LEÓN, UMICRO #### [facility] [address] [place] [address] Dr. Oneyda Rodriguez Sodium [Moles/Vol] 142 mmol/L Normal 136-145 [facility] Comment on above: Performed By: #### E RUR, UMICRO #### [facility] [address] [place] [address] Dr. Oneyda Rodriguez Urea nitrogen [Mass/Vol] 12.0 mg/dL Normal 7.0-18.0 [facility] Comment on above: Performed By: #### E RUR, UMICRO #### [facility] [address] [place] [address] Dr. Oneyda Rodriguez Urea nitrogen/Creatinine [Mass ratio] 16.4 mg/mg Normal [facility] Comment on above: Performed By: #### BILL LI #### [facility] [address] [address] [address] Oneyda Rodriguez TROPONIN, HIGH SENSITIVITYon 11-23-2021 HSTROP 4.8 pg/mL Normal 4.0-51.3 [facility] Comment on above: Result Comment: CUT- OFF POINTS HAVE BEEN ESTABLISHED BASED ON THE FOURTH UNIVERSAL DEFINITIONS OF MYOCARDIAL INFARCTION. THE UPPER REFERENCE LIMIT (URL) OF TROPONIN, DEFINED THE 99TH PERCENTILE OF cTnI DISTRIBUTION IN A REFERENCE POPULATION, HAS BEEN CONFIRMED THE DECISION THRESHOLD FOR MT DIAGNOSIS. Performed By: #### BILL LI #### [facility] [address] [place] [address] Dr. Oneyda Rodriguez HCV RNA,Quant,PCRon 11-02-19 HCV [...] Health Department Report Status FINAL 11/01/2020 Normal [facility] Comment on above: Performed By: #### H CVQ #### [facility] [address] [place] [address] Crane Man: Valdo Diaz MD [facility] [address] [place] [address] Crane Man: Mateo Mir MD CBCon 10-27-2020 Erythrocyte distribution width (RBC) [Ratio] 14.4 % Normal 11.8-14.4 [facility] Comment on above: Performed By: #### I PF, CBC, CP, HCG #### [address] [place] [id number] Crane Man: Mateo Mir MD #### HIVCMB, PHEP #### [address] [phone] Crane Man: Valdo Diaz MD Hematocrit (Bld) [Volume fraction] 38.8 % Normal 36.3-47.1 [facility] Comment on above: Performed By: #### I PF, CBC, CP, HCG #### [address] [place] [id number] Crane Man: Mateo Mir MD #### HIVCMB, PHEP #### [address] [place] [id number] Crane Man: Valdo Diaz MD Hemoglobin (Bld) [Mass/Vol] 12.4 g/dL Normal 11.9-15.1 [facility] Comment on above: Performed By: #### I PF, CBC, CP, HCG #### [address] [place] [id number] Crane Man: Mateo Mir MD #### HIVCMB, PHEP #### [place] [address] Crane Man: Valdo Diaz MD MCH (RBC) [Entitic mass] 28.0 pg Normal 25.2-33.5 [facility] Comment on above: Performed By: #### I PF, CBC, CP, HCG #### [address] [place] [id number] Crane Man: Mateo Mir MD #### HIVCMB, PHEP #### [address] [id number] Crane Man: Valdo Diaz MD MCHC (RBC) [Mass/Vol] 32.0 g/dL Normal 28.4-34.8 [facility] Comment on above: Performed By: #### I PF, CBC, CP, HCG #### [facility] [address] [place] [address] Dr. [place] [phone] Crane Man: Mateo Mir MD #### HIVCMB, PHEP #### [address] [id number] Crane Man: Valdo Diaz MD MCV (RBC) [Entitic vol] 87.6 fL Normal 82.6-102.9 [facility] Comment on above: Performed By: #### I PF, CBC, CP, HCG #### [address] [place] [phone] Crane Man: Mateo Mir MD #### HIVCMShavon, PHEP #### [address] [address] Crane Man: Valdo Diaz MD NRBC Automated 0.0 per 100 WBC Normal 0.0 [facility] Comment on above: Performed By: #### I PF, CBC, CP, HCG #### [address] [place] [phone] Crane Man: Mateo Mir MD #### HIVCMShavon, PHEP #### [address] [address] Crane Man: Valdo Diaz MD Platelet Count See Reflexed IPF Result Normal 138-453 [facility] Comment on above: Performed By: #### I PF, CBC, CP, HCG #### [address] [place] [phone] Crane Man: Mateo Mir MD #### HIVCMB, PHEP #### [address] [phone] Crane Man: Valdo Diaz MD RBC (Bld) [#/Vol] 4.43 10*6/uL Normal 3.95-5.11 [facility] Comment on above: Performed By: #### I PF, CBC, CP, HCG #### [facility] [address] [place], [place] [id number] Crane Man: Mateo Mir MD #### HIVCMB, PHEP #### [address] [id number] Crane Man: Valdo Diaz MD WBC (Bld) [#/Vol] 8.2 10*3/uL Normal 3.5-11.3 [facility] Comment on above: Performed By: #### I PF, CBC, CP, HCG #### [facility] [address] [place] [address] Dr. [place], [place] [phone] Crane Man: Mateo Mir MD #### HIVCMShavon, PHEP #### [address] [phone] Crane Man: Valdo Diaz MD MPV NOT REPORTED Normal 8.1-13.5 [facility] Comment on above: Performed By: #### I PF, CBC, CP, HCG #### [facility] [address] [place] [address] [place] [phone] Crane Man: Mateo Mir MD #### HIVCMB, PHEP #### [address] [phone] Crane Man: Valdo Diaz MD CBCOrdered By: Diego Hernandez on 10-27-2020 Hematocrit (Bld) [Volume fraction] 38.8 % 36.3 - 47.1 % [facility] Work Phone: Hemoglobin.gastroint estinal spec 1 Ql (Stl) 12.4 g/dL 11.9 - 15.1 g/dL [facility] Work Phone: MCH (RBC) [Entitic mass] 28.0 pg 25.2 - 33.5 pg [facility] Phone: MCHC (RBC) [Mass/Vol] 32.0 g/dL 28.4 - 34.8 g/dL [employer] Phone: MCV (RBC) [Entitic vol] 87.6 fL 82.6 - 102.9 fL [employer] Phone: NRBC Automated 0.0 0.0 per 100 WBC [employer] Phone: Platelet distribution width (Bld) [Ratio] 14.4 % 11.8 - 14.4 % [employer] Phone: Platelet mean volume (Bld) [Entitic vol] NOT REPORTED 8.1 - 13.5 fL [employer] Phone: Platelets (Bld) [#/Vol] See Reflexed IPF Result [employer] Phone: RBC (Bld) [#/Vol] 4.43 10*6/uL 3.95 - 5.1 1 m/uL [employer] Phone: WBC (Bld) [#/Vol] 8.2 10*3/uL [employer] Phone: Comp Metabolic Profon 2020 (cont.) Normal [facility] Comment on above: Result Comment: Aver age GFR for 30-39 years old: 107 mL/min/1.73sq m Chronic Kidney Disease: <60 mL/min/1.73sq m Kidney failure: <15 mL/min/1.73sq m eGFR calculated using average adult body mass. Additional eGFR calculator available at: http://[email or web address]TeraView/multiple_crcl_2011.htm Performed By: #### I PF, CBC, CP, HCG #### [facility] [address] [place] [address] Crane Man: Mateo Mir MD #### HIVCMB, PHEP #### [address] [address] Crane Man: Valdo Diaz MD Albumin [Mass/Vol] 3.6 g/dL Normal 3.5-5.2 [facility] Comment on above: Performed By: #### I PF, CBC, CP, HCG #### [facility] [address] [place] [address] Dr. [place] [phone] Crane Man: Mateo Mir MD #### HIVCMB, PHEP #### [address] [address] Crane Man: Valdo Diaz MD Albumin/Glob Ratio 1.2 Normal 1.0-2.5 [facility] Comment on above: Performed By: #### I PF, CBC, CP, HCG #### [address] [place] [phone] Crane Man: Mateo Mir MD #### HIVCMB, PHEP #### [address] [phone] Crane Man: Valdo Diaz MD Alkaline Phos 174 U/L High 35-104 [facility] Comment on above: Performed By: #### I PF, CBC, CP, HCG #### [address] [place] [phone] Crane Man: Mateo Mir MD #### HIVCMB, PHEP #### [address] [address] Crane Man: Valdo Diaz MD ALT [Catalytic activity/Vol] 65 U/L High 5-33 [facility] Comment on above: Performed By: #### I PF, CBC, CP, HCG #### [address] [place], [place] [phone] Crane Man: Mateo Mir MD #### HIVCMB, PHEP #### [facility] [address] [place], [place] [phone] Crane Man: Valdo Diaz MD Anion gap [Moles/Vol] 8 mmol/L Low 9-17 [facility] Comment on above: Performed By: #### I PF, CBC, CP, HCG #### [facility] [address] [place], [place] [phone] Crane Man: Mateo Mir MD #### HIVCMB, PHEP #### [facility] [address] [place], [place] [phone] Crane Man: Valdo Diaz MD AST [Catalytic activity/Vol] 42 U/L High <32 [facility] Comment on above: Performed By: #### I PF, CBC, CP, HCG #### [facility] [address] [place] [address] Dr. [place], [place] [phone] Crane Man: Mateo Mir MD #### HIVCMB, PHEP #### [address] [address] [place], [place] [phone] Crane Man: Valdo Diaz MD Bilirubin [Mass/Vol] 0.20 mg/dL Low 0.3-1.2 [facility] Comment on above: Performed By: #### I PF, CBC, CP, HCG #### [facility] [address] [place] [phone] Crane Man: Mateo Mir MD #### HIVCMB, PHEP #### [facility] [address] [place], [place] [phone] Crane Man: Valdo Diaz MD BUN/CRE Ratio 12 Normal 9-20 [facility] Comment on above: Performed By: #### I PF, CBC, CP, HCG #### [facility] [address] [place], [place] [phone] Crane Man: Mateo Mir MD #### HIVCMB, PHEP #### [address] [place], [place] [phone] Crane Man: Valdo iDaz MD Calcium [Mass/Vol] 9.2 mg/dL Normal 8.6-10.4 [facility] Comment on above: Performed By: #### I PF, CBC, CP, HCG #### [facility] [address] [place], [place] [phone] Crane Man: Mateo Mir MD #### HIVCMB, PHEP #### [address] [phone] Crane Man: Valdo Diaz MD Chloride [Moles/Vol] 107 mmol/L Normal 98-107 [facility] Comment on above: Performed By: #### I PF, CBC, CP, HCG #### [address] [place] [phone] Crane Man: Mateo Mir MD #### HIVCMB, PHEP #### [address] [phone] Crane Man: Valdo Diaz MD CO2 [Moles/Vol] 26 mmol/L Normal 20-31 [facility] Comment on above: Performed By: #### I PF, CBC, CP, HCG #### [address] [place] [address] Crane Man: Mateo Mir MD #### HIVCMB, PHEP #### [address] [phone] Crane Man: Valdo Diaz MD Creatinine [Mass/Vol] 0.67 mg/dL Normal 0.50-0.90 [facility] Comment on above: Performed By: #### I PF, CBC, CP, HCG #### [facility] [address] [place] [address] Crane Man: Mateo Mir MD #### HIVCMB, PHEP #### [address] [place] [address] Crane Man: Valdo Diaz MD GFR, Amer >60 Normal >60 [facility] Comment on above: Performed By: #### I PF, CBC, CP, HCG #### [facility] [address] [place], [place] [phone] Crane Man: Mateo Mir MD #### HIVCMB, PHEP #### [address] [place] [address] Crane Man: Valdo Diaz MD GFR,non Amer >60 Normal >60 [facility] Comment on above: Performed By: #### I PF, CBC, CP, HCG #### [facility] [address] [place] [address] Dr. [place], [place] [phone] Crane Man: Mateo Mir MD #### HIVCMB, PHEP #### [address] [address] Crane Man: Valdo Diaz MD Glucose [Mass/Vol] 99 mg/dL Normal 70-99 [facility] Comment on above: Performed By: #### I PF, CBC, CP, HCG #### [facility] [address] [place] [address] Dr. [place], [place] [phone] Crane Man: Mateo Mir MD #### HIVCMB, PHEP #### [address] [phone] Crane Man: Valdo Diaz MD Potassium [Moles/Vol] 4.2 mmol/L Normal 3.7-5.3 [facility] Comment on above: Performed By: #### I PF, CBC, CP, HCG #### [facility] [address] [place] [address] Dr. [place], [place] [phone] Crane Man: Mateo Mir MD #### HIVCMB, PHEP #### [address] [phone] Crane Man: Valdo Diaz MD Protein [Mass/Vol] 6.6 g/dL Normal 6.4-8.3 [facility] Comment on above: Performed By: #### I PF, CBC, CP, HCG #### [address] [place], [place] 2254483 Crane Man: Mateo Mir MD #### HIVCMB, PHEP #### [address] [phone] Crane Man: Valdo Diaz MD Sodium [Moles/Vol] 141 mmol/L Normal 135-144 [facility] Comment on above: Performed By: #### I PF, CBC, CP, HCG #### [address] [place] [address] Crane Man: Mateo Mir MD #### HIVCMB, PHEP #### [address] [phone] Crane Man: Valdo Diaz MD Staging: Normal [facility] Comment on above: Result Comment: Stag e 1: Some kidney damage normal GFR Stage 2: Mild kidney damage GFR 60-89 Stage 3: Moderate kidney damage GFR 30-59 Stage 4: Severe kidney damage GFR 15-29 Stage 5: Severe kidney damage GFR <15 ESRD - chronic treatment by dialysis or transplant Performed By: #### I PF, CBC, CP, HCG #### [address] [place], [place] [phone] Crane Man: Mateo Mir MD #### HIVCMB, PHEP #### [address] [phone] Crane Man: Valdo Diaz MD Urea nitrogen [Mass/Vol] 8 mg/dL Normal 6-20 [facility] Comment on above: Performed By: #### I PF, CBC, CP, HCG #### [facility] [address] [place] [address] Crane Man: Mateo Mir MD #### HIVCMB, PHEP #### [facility] [address] [place], [place] [phone] Crane Man: Valdo Diaz MD Comprehensive Metabolic Pane lOrdered By: Diego Hernandez on 10-27-2020 Albumin [Mass/Vol] 3.6 g/dL 3.5 - 5.2 g/dL [facility] [employer] Work Phone: Albumin/Globulin [Mass ratio] 1.2 {ratio} [facility] Phone: ALP (Bld) [Catalytic activity/Vol] 174 U/L High 35 - 104 U/L [facility] Phone: ALT [Catalytic activity/Vol] 65 U/L High 5 - 33 U/L [facility] Phone: Anion gap [Moles/Vol] 8 mmol/L Low 9 - 17 mmol/L [facility] Phone: AST [Catalytic activity/Vol] 42 U/L High <32 [facility] Phone: Bilirubin [Mass/Vol] 0.20 mg/dL Low 0.3 - 1.2 mg/dL [facility] Phone: Calcium [Mass/Vol] 9.2 mg/dL 8.6 - 10. 4 mg/dL [employer] Phone: Chloride [Moles/Vol] 107 mmol/L 98 - 107 mmol/L [facility] Phone: CO2 [Moles/Vol] 26 mmol/L 20 - 31 mmol/L [facility] Phone: Creatinine [Mass/Vol] 0.67 mg/dL 0.50 - 0.90 mg/dL [facility] Phone: Free PSA/Total PSA [Mass fraction] 6.6 g/dL 6.4 - 8.3 g/dL [employer] Phone: GFR >60 >60 mL/min [employer] Phone: GFR Non- >60 >60 mL/min [employer] Phone: Glucose [Mass/Vol] 99 mg/dL 70 - 99 mg/dL [facility] [employer] Phone: Interpretation and review of laboratory results Abnormal [facility] Phone: Potassium [Moles/Vol] 4.2 mmol/L 3.7 - 5.3 mmol/L [facility] Phone: Sodium [Moles/Vol] 141 mmol/L 135 - 144 mmol/L [facility] Phone: Urea nitrogen (BldV) [Mass/Vol] 8 mg/dL 6 - 20 mg/dL [employer] Phone: Urea nitrogen/Creatinine (Bld) [Mass ratio] 12 [facility] Phone: HCG Qualitative, SerumOrdere d By: Diego Hernandez on 10-27-2020 hCG Qual Negative NEGATIVE [employer] Phone: Comment on above: Specimens with hCG l evels near the threshold of the test (25 mIU/mL) may give a negative or indeterminate result. In such cases, another test should be performed with a new specimen in 48-72 hours. If early is suspected clinically in this setting, correlation with quantitative serum b-hCG level is suggested. [facility] has confirmed the use of plasma for this test. This has not been cleared or approved by the U.S. Food and Drug Administration. The FDA has determined that such clearance is not necessary. HCG Screen, Bloodon 10-28-19 21 HCG Screen, Blood Negative Normal NEG [facility] Comment on above: Result Comment: Spec imens with hCG levels near the threshold of the test (25 mIU/mL) may give a negative or indeterminate result. In such cases, another test should be performed with a new specimen in 48-72 hours. If early is suspected clinically in this setting, correlation with quantitative serum b-hCG level is suggested. [facility] has confirmed the use of plasma for this test. This has not been cleared or approved by the U.S. Food and Drug Administration. The FDA has determined that such clearance is not necessary. Performed By: #### I PF, HCG, CP, CBC #### [address] [place] [address] Crane Man: Fidel Hallman MD #### HIVCMB, PHEP #### [facility] [address] [place], [place] [id number] Crane Man: Valdo Diaz MD HIV Ag/Abon 10-27-2020 HIV Ag/Ab Non-Reactive Normal NR [facility] Comment on above: Result Comment: No l aboratory evidence of HIV infection. If acute HIV infection is suspected, consider testing for HIV-1 RNA. Performed By: #### I PF, HCG, CP, CBC #### [address] [place] [address] Crane Man: Fidel Hallman MD #### HIVCMB, PHEP #### [address] [place], [place] [id number] Crane Man: Valdo Diaz MD HIV ScreenOrdered By: Diego Hernandez on 10-27-2020 HIV Ag/Ab Non-Reactive NONREACTIVE [facility] Work Phone: Comment on above: No laboratory eviden ce of HIV infection. If acute HIV infection is suspected, consider testing for HIV-1 RNA. Hepatitis Acute [facility] 10-27 Hep A Ab,IgM Non-Reactive Normal NR [facility] Comment on above: Performed By: #### I PF, HCG, CP, CBC #### [address] [place] [address] Crane Man: Fidel Hallman MD #### HIVCMB, PHEP #### [facility] [address] [place], [place] [id number] Crane Man: Valdo Diaz MD Hep B Core Ab,IgM Non-Reactive Normal [facility] Comment on above: Performed By: #### I PF, HCG, CP, CBC #### [facility] [address] [place] [id number] Crane Man: Fidel Hallman MD #### HIVCMB, PHEP #### [facility] [address] [place], [place] [phone] Crane Man: Valdo Diaz MD Hep B Surf Ag Non-Reactive Normal [facility] Comment on above: Performed By: #### I PF, HCG, CP, CBC #### [address] [place], [place] [phone] Crane Man: Fidel Hallman MD #### HIVCMB, PHEP #### [facility] [address] [place], [place] [phone] Crane Man: Valdo Diaz MD Hep C Ab Reactive Abnormal [facility] Comment on above: Result Comment: The hepatitis [...] #### I PF, HCG, CP, CBC #### [address] [place], [place] [phone] Crane Man: Fidel Hallman MD #### HIVCMB, PHEP #### [facility] [address] [place], [place] [phone] Crane Man: Valdo Diaz MD Hepatitis Panel, AcuteOrdere d By: Diego Hernandez on 10-27-2020 HAV IgM IA Qn (S) Non-Reactive NONREACTIVE [facility] Work Phone: Hep B Core Ab, IgM Non-Reactive NONREACTIVE [facility] [employer] Work Phone: Hepatitis B Surface Ag Non-Reactive NONREACTIVE [facility] [employer] Work Phone: Hepatitis C Ab Reactive Abnormal NONREACTIVE [facility] Work Phone: Comment on above: The hepatitis [...] Interpretation and review of laboratory results Abnormal [facility] Phone: Immature Platelet FractionOr dered By: Diego Hernandez on 10-27-2020 Interpretation and review of laboratory results Abnormal [facility] Phone: Platelet, Fluorescence 123 Low [facility] Phone: Platelet, Immature Fraction 15.9 % High 1.1 - 10.3 % [facility] Phone: Laboratory - Chemistry and C hemistry - challengeOrdered By: Diego Hernandez on 10-27-2020 GFR/1.73 sq M.predicted MDRD (S/P/Bld) [Vol rate/Area] [employer] Phone: Comment on above: Average GFR for 30-3 9 years old: 107 mL/min/1.73sq m Chronic Kidney Disease: <60 mL/min/1.73sq m Kidney failure: <15 mL/min/1.73sq m eGFR calculated using average adult body mass. Additional eGFR calculator available at: http://[email or web address]/multiple_crcl_2012.htm Stage 1: Some kidney damage normal GFR Stage 2: Mild kidney damage GFR 60-89 Stage 3: Moderate kidney damage GFR 30-59 Stage 4: Severe kidney damage GFR 15-29 Stage 5: Severe kidney damage GFR <15 ESRD - chronic treatment by dialysis or transplant PLT, Immature Fract.on 10-27 Platelet, Fluoresc. 123 k/uL Low 138-453 [facility] Comment on above: Performed By: #### I PF, CBC, CP, HCG #### [facility] [address] [place] [address] Crane Man: Mateo Mir MD #### HIVCMB, PHEP #### [address] [place], [place] [phone] Crane Man: Valdo Diaz MD PLT, Immature Fract. 15.9 % High 1.1-10.3 [facility] Comment on above: Performed By: #### I PF, CBC, CP, HCG #### [facility] [address] [place] [address] Crane Man: Mateo Mir MD #### HIVCMB, PHEP #### [address] [place], [place] [phone] Crane Man: Valdo Diaz MD HCV RNA,Quant,PCRon 05-13-20 20 [...] Health Department Report Status FINAL 05/13/2020 Normal [facility] Comment on above: Performed By: #### I PF, HCG, CP, CBC #### [facility] [address] [place] [address] Crane Man: Fidel Hallman MD #### HIVCMB, PHEP #### [address] [id number] Crane Man: Valdo Diaz MD CBCon 05-12-2020 Erythrocyte distribution width (RBC) [Ratio] 14.7 % High 11.8-14.4 [facility] Comment on above: Performed By: #### I PF, HCG, CP, CBC #### [address] [place] [address] Crane Man: Fidel Hallman MD #### HIVCMB, PHEP #### [place] [address] Crane Man: Valdo Diaz MD Hematocrit (Bld) [Volume fraction] 39.7 % Normal 36.3-47.1 [facility] Comment on above: Performed By: #### I PF, HCG, CP, CBC #### [address] [place] [address] Crane Man: Fidel Hallman MD #### HIVCMB, PHEP #### [place] [address] Crane Man: Valdo Diaz MD Hemoglobin (Bld) [Mass/Vol] 12.2 g/dL Normal 11.9-15.1 [facility] Comment on above: Performed By: #### I PF, HCG, CP, CBC #### [address] [place] [phone] Crane Man: Fidel Hallman MD #### HIVCMB, PHEP #### [place] [address] Crane Man: Valdo Diaz MD MCH (RBC) [Entitic mass] 27.6 pg Normal 25.2-33.5 [facility] Comment on above: Performed By: #### I PF, HCG, CP, CBC #### [address] [place] [phone] Crane Man: Fidel Hallman MD #### HIVCMB, PHEP #### [address] [phone] Crane Man: Valdo Diaz MD MCHC (RBC) [Mass/Vol] 30.7 g/dL Normal 28.4-34.8 [facility] Comment on above: Performed By: #### I PF, HCG, CP, CBC #### [address] [place] [phone] Crane Man: Fidel Hallman MD #### HIVCMShavon, PHEP #### [address] [phone] Crane Man: Valdo Diaz MD MCV (RBC) [Entitic vol] 89.8 fL Normal 82.6-102.9 [facility] Comment on above: Performed By: #### I PF, HCG, CP, CBC #### [address] [place] [phone] Crane Man: Fidel Hallman MD #### HIVCMB, PHEP #### [address] [phone] Crane Man: Valdo Diaz MD NRBC Automated 0.0 per 100 WBC Normal 0.0 [facility] Comment on above: Performed By: #### I PF, HCG, CP, CBC #### [address] [place] [phone] Crane Man: Fidel Hallman MD #### HIVCMB, PHEP #### [address] [phone] Crane Man: Valdo Diaz MD Platelet Count See Reflexed IPF Result Normal 138-453 [facility] Comment on above: Performed By: #### I PF, HCG, CP, CBC #### [address] [place], [place] 56[address] Crane Man: Fidel Hallman MD #### HIVCMB, PHEP #### [address] [place], [place] 1409908 Crane Man: Valdo Diaz MD RBC (Bld) [#/Vol] 4.42 10*6/uL Normal 3.95-5.11 [facility] Comment on above: Performed By: #### I PF, HCG, CP, CBC #### [address] [place], [place] [address] Crane Man: Fidel Hallman MD #### HIVCMB, PHEP #### [address] [phone] Crane Man: Valdo Diaz MD WBC (Bld) [#/Vol] 8.9 10*3/uL Normal 3.5-11.3 [facility] Comment on above: Performed By: #### I PF, HCG, CP, CBC #### [address] [place], [place] 4670[address] Crane Man: Fidel Hallman MD #### HIVBLUE, PHEP #### [address] [phone] Crane Man: Valdo Diaz MD MPV NOT REPORTED Normal 8.1-13.5 [facility] Comment on above: Performed By: #### I PF, HCG, CP, CBC #### [address] [place], [place] 19[address] Crane Man: Fidel Hallman MD #### HIVCMB, PHEP #### [address] [phone] Crane Man: Valdo Diaz MD Erythrocyte distribution width (RBC) [Ratio] 14.7 % High 11.8 - 14.4 % [place] Hematocrit (Bld) [Volume fraction] 39.7 % 36.3 - 47.1 % [place] Hemoglobin (Bld) [Mass/Vol] 12.2 g/dL 11.9 - 15.1 g/dL [place] Interpretation and review of laboratory results Abnormal [place] MCH (RBC) [Entitic mass] 27.6 pg 25.2 - 33.5 pg [place] MCHC (RBC) [Mass/Vol] 30.7 g/dL 28.4 - 34.8 g/dL [place] MCV (RBC) [Entitic vol] 89.8 fL 82.6 - 102.9 fL [place] Platelet mean volume (Bld) [Entitic vol] NOT REPORTED 8.1 - 13.5 fL [place] Platelets (Bld) [#/Vol] See Reflexed IPF Result [place] RBC (Bld) [#/Vol] 4.42 10*6/uL 3.95 - 5.1 1 m/uL [place] WBC (Bld) [#/Vol] 0.0 10*3/uL 0.0 per 100 WBC M [place] WBC (Bld) [#/Vol] 8.9 10*3/uL [place] Comp Metabolic Profon 2019 (cont.) Normal [facility] Comment on above: Result Comment: Aver age GFR for 30-39 years old: 107 mL/min/1.73sq m Chronic Kidney Disease: <60 mL/min/1.73sq m Kidney failure: <15 mL/min/1.73sq m eGFR calculated using average adult body mass. Additional eGFR calculator available at: http://[email or web address]com/multiple_crcl_2011.htm Performed By: #### I PF, HCG, CP, CBC #### [facility] [address] [place] [address] Crane Man: Fidel Hallman MD #### HIVCMB, PHEP #### [facility] [address] [place] [address] Crane Man: Valdo Diaz MD Albumin [Mass/Vol] 3.9 g/dL Normal 3.5-5.2 [facility] Comment on above: Performed By: #### I PF, HCG, CP, CBC #### [facility] [address] [place], [place] 1883883 Crane Man: Fidel Hallman MD #### HIVCMB, PHEP #### [address] [phone] Crane Man: Valdo Diaz MD Albumin/Glob Ratio 1.3 Normal 1.0-2.5 [facility] Comment on above: Performed By: #### I PF, HCG, CP, CBC #### [address] [place], [place] 7482283 Crane Man: Fidel Hallman MD #### HIVCMB, PHEP #### [address] [phone] Crane Man: Valdo Diaz MD Alkaline Phos 122 U/L High 35-104 [facility] Comment on above: Performed By: #### I PF, HCG, CP, CBC #### [address] [place], [place] 0103283 Crane Man: Fidel Hallman MD #### HIVCMB, PHEP #### [address] [address] Crane Man: Valdo Diaz MD ALT [Catalytic activity/Vol] 98 U/L High 5-33 [facility] Comment on above: Performed By: #### I PF, HCG, CP, CBC #### [facility] [address] [place] [address] Dr[address] [place], [place] 8446083 Crane Man: Fidel Hallman MD #### HIVCMB, PHEP #### [address] [address] Crane Man: Valdo Diaz MD Anion gap [Moles/Vol] 11 mmol/L Normal 9-17 [facility] Comment on above: Performed By: #### I PF, HCG, CP, CBC #### [facility] [address] [place], [place] 897[address] Crane Man: Fidel Hallman MD #### HIVCMB, PHEP #### [address] [phone] Crane Man: Valdo Diaz MD AST [Catalytic activity/Vol] 51 U/L High <32 [facility] Comment on above: Performed By: #### I PF, HCG, CP, CBC #### [facility] [address] [place] [address] Dr. [place] [phone] Crane Man: Fidel Hallman MD #### HIVCMB, PHEP #### [address] [phone] Crane Man: Valdo Diaz MD Bilirubin [Mass/Vol] 0.20 mg/dL Low 0.3-1.2 [facility] Comment on above: Performed By: #### I PF, HCG, CP, CBC #### [address] [place], [place] [phone] Crane Man: Fidel Hallman MD #### HIVCMB, PHEP #### [address] [address] Crane Man: Valdo Diaz MD BUN/CRE Ratio 14 Normal 9-20 [facility] Comment on above: Performed By: #### I PF, HCG, CP, CBC #### [address] [place] [address] Crane Man: Fidel Hallman MD #### HIVCMB, PHEP #### [address] [address] Crane Man: Valdo Diaz MD Calcium [Mass/Vol] 9.3 mg/dL Normal 8.6-10.4 [facility] Comment on above: Performed By: #### I PF, HCG, CP, CBC #### [facility] [address] [place], [place] [phone] Crane Man: Fdiel Hallman MD #### HIVCMB, PHEP #### [address] [phone] Crane Man: Valdo Diaz MD Chloride [Moles/Vol] 109 mmol/L High 98-107 [facility] Comment on above: Performed By: #### I PF, HCG, CP, CBC #### [facility] [address] [place] [address] [address] [place] [phone] Crane Man: Fidel Hallman MD #### HIVCMB, PHEP #### [address] [phone] Crane Man: Valdo Diaz MD CO2 [Moles/Vol] 23 mmol/L Normal 20-31 [facility] Comment on above: Performed By: #### I PF, HCG, CP, CBC #### [facility] [address] [place] [address] [address] [place] [phone] Crane Man: Fidel Hallman MD #### HIVCMB, PHEP #### [address] 2017508 Crane Man: Valdo Diaz MD Creatinine [Mass/Vol] 0.69 mg/dL Normal 0.50-0.90 [facility] Comment on above: Performed By: #### I PF, HCG, CP, CBC #### [facility] [address] [place] [address] [place] [address] Crane Man: Fidel Hallman MD #### HIVCMB, PHEP #### [address] [phone] Crane Man: Valdo Diaz MD GFR, Amer >60 Normal >60 [facility] Comment on above: Performed By: #### I PF, HCG, CP, CBC #### [facility] [address] [place] [address] Crane Man: Fidel Hallman MD #### HIVCMB, PHEP #### [address] [place], [place] [phone] Crane Man: Valdo Diaz MD GFR,non Amer >60 Normal >60 [facility] Comment on above: Performed By: #### I PF, HCG, CP, CBC #### [facility] [address] [place] [address] Crane Man: Fidel Hallman MD #### HIVCMB, PHEP #### [address] [phone] Crane Man: Valdo Diaz MD Glucose [Mass/Vol] 154 mg/dL High 70-99 [facility] Comment on above: Performed By: #### I PF, HCG, CP, CBC #### [facility] [address] [place] [address] Crane Man: Fidel Hallman MD #### HIVCMB, PHEP #### [address] [phone] Crane Man: Valdo Diaz MD Potassium [Moles/Vol] 3.9 mmol/L Normal 3.7-5.3 [facility] Comment on above: Performed By: #### I PF, HCG, CP, CBC #### [facility] [address] [place] [address] Crane Man: Fidel Hallman MD #### HIVCMB, PHEP #### [address] [address] Crane Man: Valdo Diaz MD Protein [Mass/Vol] 7.0 g/dL Normal 6.4-8.3 [facility] Comment on above: Performed By: #### I PF, HCG, CP, CBC #### [address] [place] [address] Crane Man: Fidel Hallman MD #### HIVCMB, PHEP #### [facility] [address] [place], [place] [phone] Crane Man: Valdo Diaz MD Sodium [Moles/Vol] 143 mmol/L Normal 135-144 [facility] Comment on above: Performed By: #### I PF, HCG, CP, CBC #### [address] [place] [address] Crane Man: Fidel Hallman MD #### HIVCMB, PHEP #### [address] [place], [place] 2283208 Crane Man: Valdo Diaz MD Staging: Normal [facility] Comment on above: Result Comment: Stag e 1: Some kidney damage normal GFR Stage 2: Mild kidney damage GFR 60-89 Stage 3: Moderate kidney damage GFR 30-59 Stage 4: Severe kidney damage GFR 15-29 Stage 5: Severe kidney damage GFR <15 ESRD - chronic treatment by dialysis or transplant Performed By: #### I PF, HCG, CP, CBC #### [address] [place] [address] Crane Man: Fidel Hallman MD #### HIVCMB, PHEP #### [address] [place], [place] 518500[address] Crane Man: Valdo Diaz MD Urea nitrogen [Mass/Vol] 10 mg/dL Normal 6-20 [facility] Comment on above: Performed By: #### I PF, HCG, CP, CBC #### [address] [place], [place] 9878783 Crane Man: Fidel Hallman MD #### HIVCMB, PHEP #### [address] [place] [address] Crane Man: Valdo Diaz MD Comprehensive Metabolic Pane ruiz 05-12-2020 Albumin [Mass/Vol] 3.9 g/dL 3.5 - 5.2 g/dL [place] Albumin/Globulin [Mass ratio] 1.3 {ratio} [place] ALP [Catalytic activity/Vol] 122 U/L High 35 - 104 U/L [place] ALT [Catalytic activity/Vol] 98 U/L High 5 - 33 U/L [place] Anion gap [Moles/Vol] 11 mmol/L 9 - 17 mmol/L [place] AST [Catalytic activity/Vol] 51 U/L High <32 [place] Bilirubin Ql (U) 0.20 mg/dL Low 0.3 - 1.2 mg/dL [place], [place] Bun/Cre Ratio 14 [place], [place] Calcium [Mass/Vol] 9.3 mg/dL 8.6 - 10. 4 mg/dL [place] Chloride [Moles/Vol] 109 mmol/L High 98 - 107 mmol/L [place] CO2 [Moles/Vol] 23 mmol/L 20 - 31 mmol/L [place] Creatinine [Mass/Vol] 0.69 mg/dL 0.5 - 0.9 mg/dL [place] GFR >60 >60 mL/min [place] GFR Non- >60 >60 mL/min [place] Glucose [Mass/Vol] 154 mg/dL High 70 - 99 mg/dL [place] Interpretation and review of laboratory results Abnormal [place] Potassium [Moles/Vol] 3.9 mmol/L 3.7 - 5.3 mmol/L [place] Protein [Mass/Vol] 7.0 g/dL 6.4 - 8.3 g/dL [place] Sodium [Moles/Vol] 143 mmol/L 135 - 144 mmol/L [place] Urea nitrogen [Mass/Vol] 10 mg/dL 6 - 20 mg/dL [place] HCG Qualitative, Serumon hCG Qual Negative NEGATIVE [place] Comment on above: Specimens with hCG l evels near the threshold of the test (25 mIU/mL) may give a negative or indeterminate result. In such cases, another test should be performed with a new specimen in 48-72 hours. If early is suspected clinically in this setting, correlation with quantitative serum b-hCG level is suggested. [facility] has confirmed the use of plasma for this test. This has not been cleared or approved by the U.S. Food and Drug Administration. The FDA has determined that such clearance is not necessary. HCG Screen, Blood 05-12-20 20 HCG Screen, Blood Negative Normal NEG [facility] Comment on above: Result Comment: Spec imens with hCG levels near the threshold of the test (25 mIU/mL) may give a negative or indeterminate result. In such cases, another test should be performed with a new specimen in 48-72 hours. If early is suspected clinically in this setting, correlation with quantitative serum b-hCG level is suggested. [facility] has confirmed the use of plasma for this test. This has not been cleared or approved by the U.S. Food and Drug Administration. The FDA has determined that such clearance is not necessary. Performed By: #### I PF, HCG, CP, CBC #### [facility] [address] [place] [address] Crane Man: Fidel Hallman MD #### HIVCMB, PHEP #### [address] [place] [address] Crane Man: Valdo Diaz MD HIV Ag/Abon 05-12-2020 HIV Ag/Ab Non-Reactive Normal NR [facility] Comment on above: Result Comment: No l aboratory evidence of HIV infection. If acute HIV infection is suspected, consider testing for HIV-1 RNA. Performed By: #### I PF, HCG, CP, CBC #### [facility] [address] [place] [address] Crane Man: Fidel Hallman MD #### HIVCMB, PHEP #### [address] [place] [address] Crane Man: Valdo Diaz MD HIV Screenon 05-12-2020 HIV Ag/Ab NONREACTIVE NONREACTIVE [place] Comment on above: No laboratory eviden ce of HIV infection. If acute HIV infection is suspected, consider testing for HIV-1 RNA. Hepatitis Acute [facility] 05-12 Hep A Ab,IgM Non-Reactive Normal NR [facility] Comment on above: Performed By: #### I PF, HCG, CP, CBC #### [facility] [address] [place] [address] [place], [place] [phone] Crane Man: Fidel Hallman MD #### HIVCMB, PHEP #### [address] [address] Crane Man: Valdo Diaz MD Hep B Core Ab,IgM Non-Reactive Normal [facility] Comment on above: Performed By: #### I PF, HCG, CP, CBC #### [facility] [address] [place] [address] [place], [place] [phone] Crane Man: Fidel Hallman MD #### HIVCMB, PHEP #### [address] [address] Crane Man: Valdo Diaz MD Hep B Surf Ag Non-Reactive Normal [facility] Comment on above: Performed By: #### I PF, HCG, CP, CBC #### [facility] [address] [place] [address] [place] [address] Crane Man: Fidel Hallman MD #### HIVCMB, PHEP #### [address] [address] Crane Man: Valdo Diaz MD Hep C Ab Reactive Abnormal [facility] Comment on above: Result Comment: The hepatitis [...] #### I PF, HCG, CP, CBC #### [facility] [address] [place] [address] Crane Man: Fidel Hallman MD #### HIVCMB, PHEP #### [facility] [address] [place] [address] Crane Man: Valdo Diaz MD Hepatitis Panel, Acuteon HAV IgM IA Qn (S) NONREACTIVE NONREACTIVE [place] Hep B Core Ab, IgM NONREACTIVE NONREACTIVE [place] Hepatitis B Surface Ag NONREACTIVE NONREACTIVE [place] Hepatitis C Ab REACTIVE Abnormal NONREACTIVE [place] Comment on above: The hepatitis C [...] Interpretation and review of laboratory results Abnormal [place] Immature Platelet Fractionon 05-12-2020 Interpretation and review of laboratory results Abnormal [place] Platelet, Fluorescence 103 Low [place] Platelet, Immature Fraction 15.6 % High 1.1 - 10.3 % [place] Metabolic Panelon 05-12-2020 GFR/1.73 sq M predicted among non-blacks MDRD (S/P/Bld) [Vol rate/Area] [place] Comment on above: Average GFR for 30-3 9 years old: 107 mL/min/1.73sq m Chronic Kidney Disease: <60 mL/min/1.73sq m Kidney failure: <15 mL/min/1.73sq m eGFR calculated using average adult body mass. Additional eGFR calculator available at: http://www.[employer]/multiple_crcl_2012.htm Stage 1: Some kidney damage normal GFR Stage 2: Mild kidney damage GFR 60-89 Stage 3: Moderate kidney damage GFR 30-59 Stage 4: Severe kidney damage GFR 15-29 Stage 5: Severe kidney damage GFR <15 ESRD - chronic treatment by dialysis or transplant PLT, Immature Fract.on 05-12 Platelet, Fluoresc. 103 k/uL Low 138-453 [facility] Comment on above: Performed By: #### I PF, HCG, CP, CBC #### [facility] [address] [place], [place] [id number] Crane Man: Fidel Hallman MD #### HIVCMB, PHEP #### [id number] [place], [place] [id number] Crane Man: Valdo Diaz MD PLT, Immature Fract. 15.6 % High 1.1-10.3 [facility] Comment on above: Performed By: #### I PF, HCG, CP, CBC #### [facility] [address] [place], [place] [id number] Crane Man: Fidel Hallman MD #### HIVCMB, PHEP #### [address] [place], [place] [id number] Crane Man: Valdo Diaz MD Ur Opiate Conf-Mayoon 2019 Ur Codeine-Hung 64 ng/mL Normal Cutoff: 25 [facility] Comment on above: Performed By: #### C BC #### [facility] [address] [place] [address] Ur Dihydrocodeine-Hung Negative Normal Cutoff: 25 [facility] Comment on above: Performed By: #### C BC #### [facility] [address] [place] [address] Ur Hydrocodone-Hung Negative Normal Cutoff: 25 [facility] Comment on above: Performed By: #### C BC #### [address] [address] Ur Hydromorphone-Hung Negative Normal Cutoff: 25 [facility] Comment on above: Performed By: #### C BC #### [address] [address] Ur Morphine-Hung 1231 ng/mL Normal Cutoff: 25 [facility] Comment on above: Performed By: #### C BC #### [address] [address] Ur Naloxone-Hung Negative Normal Cutoff: 25 [facility] Comment on above: Performed By: #### C BC #### [address] [place] [address] Ur Norhydrocodone-Hung Negative Normal Cutoff: 25 [facility] Comment on above: Performed By: #### C BC #### [address] [address] Ur Noroxycodone-Hung Negative Normal Cutoff: 25 [facility] Comment on above: Performed By: #### C BC #### [address] [place] [address] Ur Noroxymorphone-Hung Negative Normal Cutoff: 25 [facility] Comment on above: Performed By: #### C BC #### [address] [place] [address] Ur Opiates Interp-Hung Positive Normal [facility] Comment on above: Result Comment: ADDITIONAL INFORMATION This report is intended for use in clinical monitoring and management of patients. It is not intended for use in employment-related testing. This test was developed and its performance characteristics determined by [facility] in a manner consistent with CLIA requirements. This test has not been cleared or approved by the U.S. Food and Drug Administration. Test Performed by: [facility] - [address] [address] Crane Man: Santiago Mendoza M.D. Ph.D.; CLIA# [id number] Performed By: #### C BC #### [address] [address] Ur Oxycodone-[place] Negative Normal Cutoff: [address] [facility] Comment on above: Performed By: #### C BC #### [address] [address] Ur Oxymorphone-[place] Negative Normal Cutoff: 25 [facility] Comment on above: Performed By: #### C BC #### [address] [address] HBc Total Abs-[facility] 020 HBc Total Ab-[place] Negative Normal Negative [facility] Comment on above: Result Comment: Test Performed by: [place] [address] Crane Man: Santiago Mendoza M.D. Ph.D.; CLIA# [id number] Performed By: #### C BC #### [address] [address] HCV RNA Qnt-[facility] 0 HepC RNA PCR Qnt-[place] [id number] IU/mL Abnormal Undetected [facility] Comment on above: Result Comment: Resu lt in log IU/mL is 5.71. ADDITIONAL INFORMATION The quantification range of this assay is 15 to 100,000,000 IU/mL (1.18 log to 8.00 log IU/mL). Testing was performed using the kendrick HCV test ([employer] with the kendrick [employer] System. Test Performed by: [place] [address] Crane Man: Santiago Mendoza M.D. Ph.D.; CLIA# [id number] Performed By: #### C BC #### [address] [address] .eGFRon 12-03-2019 eGFR AA >60 Normal >=60 [facility] Comment on above: Order Comment: Order added by Discern rule Result Comment: Resu lt = 0-14.9 mL/min/1.73 m2 Kidney failure or Dialysis Result = 15-29 mL/min/1.73 m2 Severe decrease in GFR Result = 30-59 mL/min/1.73 m2 Moderate decrease in GFR Result >= 60 mL/min/1.73 m2 Normal or increased GFR Performed By: #### . Automated Diff #### [address] [id number] eGFR Non-AA >60 Normal >=60 [facility] Comment on above: Order Comment: Order [...] Performed By: #### . Automated Diff #### [address] [address] [facility] 12-03-2019 Albumin [Mass/Vol] 3.4 g/dL Normal 3.2-4.9 [facility] Comment on above: Result Comment: [facility] updated the methodology used for albumin testing on 02/06/18. Albumin measurement was performed using a bromcresol purple dye-binding assay. Performed By: #### . Automated Diff #### [address] [address] Albumin/Globulin [Mass ratio] 1.1 {ratio} Normal 1.1-2.2 [facility] Comment on above: Performed By: #### . Automated Diff #### [address] [address] Alk Phos 120 IU/L High 32-91 [facility] Comment on above: Performed By: #### . Automated Diff #### [address] [address] ALT [Catalytic activity/Vol] 76 U/L High 14-54 [facility] Comment on above: Performed By: #### . Automated Diff #### [address] [address] Anion gap [Moles/Vol] 13 mmol/L Normal 7-17 [facility] Comment on above: Performed By: #### . Automated Diff #### [address] [address] AST [Catalytic activity/Vol] 53 U/L High 15-41 [facility] Comment on above: Performed By: #### . Automated Diff #### [address] [address] Bili Total 0.5 mg/dL Normal 0.3-1.2 [facility] Comment on above: Performed By: #### . Automated Diff #### [address] [address] Calcium [Mass/Vol] 8.7 mg/dL Normal 8.5-10.3 [facility] Comment on above: Performed By: #### . Automated Diff #### [address] [address] Chloride [Moles/Vol] 104 mmol/L Normal 98-110 [facility] Comment on above: Performed By: #### . Automated Diff #### [address] [address] CO2 [Moles/Vol] 26 mmol/L Normal 22-32 [facility] Comment on above: Performed By: #### . Automated Diff #### [address] [address] Creatinine [Mass/Vol] 0.75 mg/dL Normal 0.44-1.03 [facility] Comment on above: Performed By: #### . Automated Diff #### [address] [address] Glucose [Mass/Vol] 100 mg/dL High 70-99 [facility] Comment on above: Performed By: #### . Automated Diff #### [address] [address] Potassium [Moles/Vol] 3.7 mmol/L Normal 3.4-4.8 [facility] Comment on above: Performed By: #### . Automated Diff #### [address] [address] Protein [Mass/Vol] 6.5 g/dL Normal 6.5-8.1 [facility] Comment on above: Performed By: #### . Automated Diff #### [address] [address] Sodium [Moles/Vol] 139 mmol/L Normal 133-142 [facility] Comment on above: Performed By: #### . Automated Diff #### [address] [address] Urea nitrogen [Mass/Vol] 15 mg/dL Normal 8-26 [facility] Comment on above: Performed By: #### . Automated Diff #### [address] [address] Urea nitrogen/Creatinine [Mass ratio] 20.0 mg/mg Normal 10.0-20.0 [facility] Comment on above: Performed By: #### . Automated Diff #### [address] [address] Chlam & GC, DNAon 12-03-2019 Chlamydia, DNA Negative Normal Negative [facility] Comment on above: Result Comment: The [...] clinician. Performed By: #### C BC #### [address] [address] Gonorrhea, DNA Negative Normal Negative [facility] Comment on above: Result Comment: The [...] clinician. Performed By: #### C BC #### [address] [address] Inpatient Clinical Summaryon 12-03-2019 Inpatient Clinical Summary [address] [address] [place] [address] Clinical Summary Person Information Name: Farideh Hsu Age: 34 Years : 1985 Sex: Female PCP: Marital Status: Single Phone: PCP: Race: White Ethnicity: Not or Language: Moldovan Visit Id: Visit Reason: Drug withdrawal Speciality: Acuity: Enc Type: Observation Med Service: X Medication Withdrawal Management Arrival: 12/02/2019 03:53:05 Discharge: Dispo Type: Place in Observation Address: [address] [place] [address] Diagnosis: 1:Heroin addiction; 2:Tobacco user; 3:Transaminitis; 4:Hepatitis [...] EDT, 1 to 2 days, [facility] as scheduled tomorrow. Allergies No [...] range between ( 27.2 and 40.8 ) [place] Auto: 4.2 % -- Normal range between [...] range between ( 36.0 and 46.0 ) [place] Absolute: 0.4 x10 MCH: 28.6 pg -- [...] HOSPITAL STAY New Medications [facility] [facility], [address] [place], [place] [id number], [phone] baclofen (baclofen 10 mg oral tablet) 10 [...] OF YOUR PATIENT?S CURRENT MEDICATIONS [facility] [facility], [address] [place], [place] [id number], [phone] baclofen (baclofen 10 mg oral tablet) 10 [...] Referring Physician: Follow up: With: Address: When: [facility] [place] [address] 12/08/2019 12:30:00 Comments: Intake and diagnostic assessment With: Address: When: [facility] [place] [address] 12/04/2019 13:00:00 Comments: Case management appointment Normal [facility] Lipid Panelon 12-03-2019 Cholesterol in LDL [Mass/Vol] 97 mg/dL Normal 0-99 [facility] Comment on above: Result Comment: The equation being used in this calculation is LDL = (Chol - HDL) - (Trig / 5) The optimal value of LDL for individual patients may vary. The patient's history of Artherosclerosis and other cardiac risk factors should be considered. Performed By: #### . Automated Diff #### [address] [address] Cardiac Risk 6.3 Normal [facility] Comment on above: Result Comment: Men Women 1/2 Average 3.43 3.27 Average 4.97 4.44 2x Average 9.55 7.05 3x Average 23.99 11.04 Performed By: #### . Automated Diff #### [address] [address] Cholesterol [Mass/Vol] 151 mg/dL Normal 25-199 [facility] Comment on above: Result Comment: 0 - 17 years of age: Desirable 0-170 Borderline High 170-199 High >=200 18 years and older: Acceptable <200 Borderline High 200-239 High >=240 Performed By: #### . Automated Diff #### [address] [address] Cholesterol in HDL [Mass/Vol] 24.0 mg/dL Low 40.0-60.0 [facility] Comment on above: Performed By: #### . Automated Diff #### [address] [address] Cholesterol in VLDL [Mass/Vol] 30 mg/dL Normal 8-39 [facility] Comment on above: Performed By: #### . Automated Diff #### [address] [address] Triglyceride [Mass/Vol] 152 mg/dL Normal [facility] Comment on above: Result Comment: 0 - 17 years of age: Trig 90 - 129 Borderline High Trig => 130 High 18 years and older: Trig 150 - 199 Borderline High Trig 200 - 499 High Trig =>500 Very High Performed By: #### . Automated Diff #### [address] [address] .eGFRon 12-02-2019 eGFR AA >60 Normal >=60 [facility] Comment on above: Result Comment: Resu lt = 0-14.9 mL/min/1.73 m2 Kidney failure or Dialysis Result = 15-29 mL/min/1.73 m2 Severe decrease in GFR Result = 30-59 mL/min/1.73 m2 Moderate decrease in GFR Result >= 60 mL/min/1.73 m2 Normal or increased GFR Performed By: #### E GFR #### [address] [address] eGFR Non-AA >60 Normal >=60 [facility] Comment on above: Result [...] dosing. Performed By: #### E GFR #### [address] [id number] CBC w/ Diffon 12-02-2019 Erythrocyte distribution width (RBC) [Ratio] 15.1 % High 11.6-14.8 [facility] Comment on above: Performed By: #### C BC #### [address] [address] Hematocrit (Bld) [Volume fraction] 35.2 % Low 36.0-46.0 [facility] Comment on above: Performed By: #### C BC #### [address] [address] Hemoglobin (Bld) [Mass/Vol] 11.9 g/dL Low 12.0-16.0 [facility] Comment on above: Performed By: #### C BC #### [address] [address] MCH (RBC) [Entitic mass] 28.6 pg Normal 27.0-35.0 [facility] Comment on above: Performed By: #### C BC #### [address] [address] MCHC (RBC) [Mass/Vol] 33.9 % Normal 31.0-37.0 [facility] Comment on above: Performed By: #### C BC #### [address] [address] MCV (RBC) [Entitic vol] 84.4 fL Normal 80.0-100.0 [facility] Comment on above: Performed By: #### C BC #### [address] [address] Platelet mean volume (Bld) [Entitic vol] 11.6 fL High 6.7-10.6 [facility] Comment on above: Performed By: #### C BC #### [address] [address] Platelets (Bld) [#/Vol] 94 x10*3/mcL Low 150-350 [facility] Comment on above: Performed By: #### C BC #### [address] [address] RBC (Bld) [#/Vol] 4.17 x10*6/mcL Normal 3.80-5.20 [facility] Comment on above: Performed By: #### C BC #### [address] [address] WBC (Bld) [#/Vol] 10.0 x10*3/mcL Normal 4.5-11.0 [facility] Comment on above: Performed By: #### C BC #### [address] [address] CMPon 12-02-2019 Albumin [Mass/Vol] 4.3 g/dL Normal 3.2-4.9 [facility] Comment on above: Result Comment: [facility] updated the methodology used for albumin testing on 02/06/18. Albumin measurement was performed using a bromcresol purple dye-binding assay. Performed By: #### C OMP #### [address] [address] Albumin/Globulin [Mass ratio] 1.3 {ratio} Normal 1.1-2.2 [facility] Comment on above: Performed By: #### C OMP #### [address] [address] Alk Phos 143 IU/L High 32-91 [facility] Comment on above: Performed By: #### C OMP #### [address] [address] ALT [Catalytic activity/Vol] 74 U/L High 14-54 [facility] Comment on above: Performed By: #### C OMP #### [address] [place] [address] Anion gap [Moles/Vol] 15 mmol/L Normal 7-17 [facility] Comment on above: Performed By: #### C OMP #### [address] [place] [address] AST [Catalytic activity/Vol] 47 U/L High 15-41 [facility] Comment on above: Performed By: #### C OMP #### [address] [place] [address] Bili Total 0.4 mg/dL Normal 0.3-1.2 [facility] Comment on above: Performed By: #### C OMP #### [address] [place] [address] Calcium [Mass/Vol] 9.2 mg/dL Normal 8.5-10.3 [facility] Comment on above: Performed By: #### C OMP #### [address] [place] [address] Chloride [Moles/Vol] 99 mmol/L Normal 98-110 [facility] Comment on above: Performed By: #### C OMP #### [address] [place] [address] CO2 [Moles/Vol] 25 mmol/L Normal 22-32 [facility] Comment on above: Performed By: #### C OMP #### [address] [place] [address] Creatinine [Mass/Vol] 0.83 mg/dL Normal 0.44-1.03 [facility] Comment on above: Performed By: #### C OMP #### [address] [place] [address] Glucose [Mass/Vol] 90 mg/dL Normal 70-99 [facility] Comment on above: Performed By: #### C OMP #### [address] [place] [address] Potassium [Moles/Vol] 3.4 mmol/L Normal 3.4-4.8 [facility] Comment on above: Performed By: #### C OMP #### [address] [address] Protein [Mass/Vol] 7.7 g/dL Normal 6.5-8.1 [facility] Comment on above: Performed By: #### C OMP #### [address] [address] Sodium [Moles/Vol] 136 mmol/L Normal 133-142 [facility] Comment on above: Performed By: #### C OMP #### [address] [address] Urea nitrogen [Mass/Vol] 15 mg/dL Normal 8-26 [facility] Comment on above: Performed By: #### C OMP #### [address] [address] Urea nitrogen/Creatinine [Mass ratio] 18.1 mg/mg Normal 10.0-20.0 [facility] Comment on above: Performed By: #### C OMP #### [address] [address] Diff Autoon 12-02-2019 Baso Absolute 0.0 x10*3/mcL Normal 0.0-0.2 [facility] Comment on above: Performed By: #### . Automated Diff #### [address] [address] Basophils/100 WBC (Bld) 0.4 % Normal 0.0-1.5 [facility] Comment on above: Performed By: #### . Automated Diff #### [address] [address] Eos Absolute 0.4 x10*3/mcL Normal 0.0-0.4 [facility] Comment on above: Performed By: #### . Automated Diff #### [address] [address] Eosinophils/100 WBC (Bld) 3.7 % Normal 0.0-5.4 [facility] Comment on above: Performed By: #### . Automated Diff #### [address] [address] Lymphocytes (Bld) [#/Vol] 3.2 x10*3/mcL Normal 1.0-4.8 [facility] Comment on above: Performed By: #### . Automated Diff #### [address] [address] Lymphocytes/100 WBC (Bld) 31.5 % Normal 27.2-40.8 [facility] Comment on above: Performed By: #### . Automated Diff #### [address] [address] [place] Absolute 0.4 x10*3/mcL Normal 0.1-1.1 [facility] Comment on above: Performed By: #### . Automated Diff #### [address] [address] Monocytes/100 WBC (Bld) 4.2 % Normal 3.7-11.9 [facility] Comment on above: Performed By: #### . Automated Diff #### [address] [address] Neutro Absolute 6.0 x10*3/mcL Normal 1.8-7.7 [facility] Comment on above: Performed By: #### . Automated Diff #### [address] [address] Neutro Auto 60.2 % Normal 47.2-70.8 [facility] Comment on above: Performed By: #### . Automated Diff #### [address] [address] ED Clinical Summaryon 2019 ED Clinical Summary [address] [address] ED Clinical Summary Person Information Name: Farideh Hsu [place] Age: 34 Years : 1985 Sex: Female PCP: Marital Status: Single Phone: Race: White Ethnicity: Not or Language: Moldovan Visit Reason: Drug withdrawal; Drug withdrawal Acuity: 3 Enc Type: Observation Med Service: X Medication Withdrawal Management Arrival: 12/02/2019 03:53:05 Discharge: LOS: 000 04:16 Checkin: 12/02/2019 03:53:05 Checkout: 12/02/2019 08:09:13 Dispo Type: Place in Observation Address: [address] [place] [address] Provider Notes: Diagnosis: 1:Heroin addiction Problems No [...] range between ( 27.2 and 40.8 ) [place] Auto: 4.2 % -- Normal range between [...] range between ( 36.0 and 46.0 ) [place] Absolute: 0.4 x10 MCH: 28.6 pg -- [...] EDT, Medical/Surgical 5th floor Patient Education Information: [facility] Poison Help line: . [facility] Hotline: [place] Tobacco Quit Line: [place], [place]) [address]: [phone] [place], [place]) [address]: [phone] [facility] [address] [place], [place]: [phone] [facility] ED Note-Physicianon 12-02-19 ED Note-Physician seen by director social service, admitted to [facility] program Electronically signed by Nakita YEAGER, Benita Maldonadosukhjinder 12/02/19 08:16 EDT Normal [facility] ED Note-Physician Chief Complaint Patient reports [...] 04:43 60.2 Lymph Auto 12/02/19 04:43 31.5 [place] Auto 12/02/19 04:43 4.2 Eos Auto 12/02/19 04:43 3.7 Basophil Auto 12/02/19 04:43 0.4 Neutro Absolute 12/02/19 04:43 6.0 Lymph Absolute 12/02/19 04:43 3.2 [place] Absolute 12/02/19 04:43 0.4 Eos Absolute 12/02/19 [...] data available (MRI) Electronically signed by Nestor cMkeon MD 12/02/19 19:07 EDT Normal [facility] Ethanolon 12-02-2019 Ethanol [Mass/Vol] mg/dL Normal <=9 [facility] Comment on above: Result Comment: To c onvert mg/dL to g/dL, divide result by 1,000. Legal limit of intoxication is 80 mg/dL (0.08 g/dL). Performed By: #### A LC #### [facility] [address] [place] [id number] Fentanyl Scn without Confirm , Uron 12-02-2019 Ur Fentanyl Scrn Presumptive Pos Abnormal NEG <1.0 [facility] Comment on above: Result Comment: Urin e sample is presumptive positive for fentanyl. The [employer] Fentanyl Urine Enzyme Immunoassay provides only [...] Performed By: #### . Automated Diff #### [address] [address] Ur Fentanyl Scrn Qnt 3.03 ng/mL High <=0.99 [facility] Comment on above: Performed By: #### . Automated Diff #### [address] [address] HIV1/2 Ab,Ag Scnon 0 HIV-1/2 Ab,Ag 0.21 Normal [facility] Comment on above: Performed By: #### . Automated Diff #### [address] [address] HIV-1/2 Ab,Ag Interp Normal Negative [facility] Comment on above: Result Comment: N egative Negative Performed By: #### . Automated Diff #### [place] [id number] Hep Scrn Chron 12-02-2019 HCV Signal to Cutoff Ratio 36.20 Normal [facility] Comment on above: Performed By: #### . Automated Diff #### [place] 2780240 Hep B Surface Antibody Interp Negative Normal [facility] Comment on above: Result Comment: Helga ent is considered to be not immune to infection. Performed By: #### . Automated Diff #### [place] [address] Hep Bs Ab <5.0 Normal [facility] Comment on above: Performed By: #### . Automated Diff #### [place] 2780240 Hep Bs Ag Interp Normal Negative [facility] Comment on above: Result Comment: Ne gative Negative Performed By: #### . Automated Diff #### [place] [id number] Hep C IgG Interp Abnormal Negative [facility] Comment on above: Result Comment: Re active This specimen is reactive by the [employer] Hepatitis C Antibody Screen. Anti-HCV IgG detected. Patient is presumed to be infected with HCV, state or associated disease not determined. Confirmation of this screening result is required. Per CBC guidelines, reactive antibody screens reflex to Hepatitis C Virus (HCV) RNA Detection and Quantification by RT-PCR. Reactive Performed By: #### . Automated Diff #### [facility] [address] [place] [address] History and Physicalon 12-01 History and Physical [...] Care Directive: unknown Health Care Power of Card Punching Machine Operator or next of kin: unknown [...] Oral, QID, PRN cloNIDine, 0.1 mg, Oral, [id number] Times cloNIDine, 0.2 mg, Oral, [id number]-[id number] Times cloNIDine, 0.1 mg, Oral, q4hr, PRN [...] by Nhi Posada 12/02/19 11:58 EDT Normal [facility] RPR Screenon 12-02-2019 RPR Ql Non-Reactive Normal Non-Reactive [facility] Comment on above: Performed By: #### . Automated Diff #### [facility] [address] [place] [address] TSHon 12-02-2019 TSH Qn 3.77 mcIU/mL Normal 0.45-5.33 [facility] Comment on above: Result Comment: Refe rence Ranges for individuals from to 18 years of age were obtained from The Kathryn Cortes Handbook (20 ed) published by [facility]. Reference Ranges for Females: Females, 1st Trimester 0.05 ? 3.7 uIU/mL Females, 2nd Trimester 0.31 ? 4.35 uIU/mL Females, 3rd Trimester 0.41 ? 5.18 uIU/mL Performed By: #### T SH #### [address] [address] UDS Compon 12-02-2019 UA pH 5.0 Normal 4.5 - 7.8 [facility] Comment on above: Performed By: #### C [id number] #### [address] [address] UA Spec Grav 1.029 Normal 1.003-1.035 [facility] Comment on above: Performed By: #### C [id number] #### [address] [address] Creatinine [Mass/Vol] 351.3 mg/dL Normal [facility] Comment on above: Performed By: #### C [id number] #### [address] [address] Ur Amph Scrn Negative Normal NEG = <1000 [facility] Comment on above: Performed By: #### C [id number] #### [address] [address] Ur Reyna Scrn Negative Normal NEG = <200 [facility] Comment on above: Performed By: #### C [id number] #### [address] [address] Ur Benzodia Scrn Negative Normal NEG = <200 [facility] Comment on above: Performed By: #### C [id number] #### [address] [address] Ur Cannab Scrn Negative Normal NEG = <50 [facility] Comment on above: Performed By: #### C [id number] #### [address] [address] Ur Cocaine Scrn Negative Normal NEG = <300 [facility] Comment on above: Performed By: #### C [id number] #### [address] [address] Ur Methadone Scn Negative Normal NEG = <300 [facility] Comment on above: Performed By: #### C [id number] #### [address] [address] Ur Opiate Scrn Positive Abnormal NEG = <300 [facility] Comment on above: Result Comment: This unconfirmed positive screening result is to be used for medical treatment purposes only. Unconfirmed screening results must not be used for non-medical purposes. (e.g. employment testing, legal testing). Performed By: #### C [id number] #### [address] [address] Ur Oxy Screen Negative Normal NEG = <100 [facility] Comment on above: Performed By: #### C [id number] #### [address] [address] Ur Oxy Scrn Qnt 24 ng/mL Normal <=99 [facility] Comment on above: Performed By: #### C [id number] #### [address] [address] Ur PCP Scrn Negative Normal NEG = <25 [facility] Comment on above: Performed By: #### C [id number] #### [address] [address] UDS Comp/Con 12-02-2019 Creatinine [Mass/Vol] 45.1 mg/dL Normal [facility] Comment on above: Performed By: #### . Automated Diff #### [address] [address] Ur Amph Scrn w/Conf Negative Normal NEG = <1000 [facility] Comment on above: Performed By: #### . Automated Diff #### [address] [address] Ur Reyna Scrn w/Conf Negative Normal NEG = <200 [facility] Comment on above: Performed By: #### . Automated Diff #### [address] [address] Ur Benzodia Scrn w/Conf Negative Normal NEG = <200 [facility] Comment on above: Performed By: #### . Automated Diff #### [address] [address] Ur Cannab Scrn w/Conf Negative Normal NEG = <50 [facility] Comment on above: Performed By: #### . Automated Diff #### [address] [address] Ur Cocaine Scrn w/Conf Negative Normal NEG = <300 [facility] Comment on above: Performed By: #### . Automated Diff #### [address] [address] Ur Methadone Scrn w/Conf Negative Normal NEG = <300 [facility] Comment on above: Performed By: #### . Automated Diff #### [address] [address] Ur Opiate Scrn w/Conf Positive Abnormal NEG = <300 [facility] Comment on above: Result Comment: This unconfirmed positive screening result is to be used for medical treatment purposes only. Confirmation testing will be performed using an alternate method. Performed By: #### . Automated Diff #### [address] [address] Ur Oxy Screen w/Conf Negative Normal NEG = <100 [facility] Comment on above: Performed By: #### . Automated Diff #### [address] [address] Ur Oxy Scrn Qnt w/Confirm 2 ng/mL Normal <=99 [facility] Comment on above: Performed By: #### . Automated Diff #### [address] [address] Ur PCP Scrn w/Conf Negative Normal NEG = <25 [facility] Comment on above: Performed By: #### . Automated Diff #### [address] [address] UA pH 6.0 Normal 4.5 - 7.8 [facility] Comment on above: Performed By: #### . Automated Diff #### [facility] [address] [place] [address] UA Spec Grav 1.004 Normal 1.003-1.035 [facility] Comment on above: Performed By: #### . Automated Diff #### [facility] [address] [place] [address] Vital Signs Date Time Vital Sign Value Performing Clinician Facility 03-19-2025 09:20-0400 Body mass index (BMI) [Ratio] 42.99 kg/m2 Aurelio Jaden DO Work Phone: [facility] 03-19-2025 09:20-0400 Body weight 103.19 kg Aurelio Jaden DO Work Phone: [facility] 03-19-2025 09:20-0400 Diastolic blood pressure 86 mm[Hg] Aurelio Jaden DO Work Phone: [facility] 03-19-2025 09:20-0400 Systolic blood pressure 120 mm[Hg] Aurelio Jaden DO Work Phone: [facility] 12-08-2024 13:45-0400 Body mass index (BMI) [Ratio] 43.42 kg/m2 Aurelio Jaden DO Work Phone: [facility] 12-08-2024 13:45-0400 Body weight 104.24 kg Aurelio Jaden DO Work Phone: [facility] 12-08-2024 13:45-0400 Diastolic blood pressure 80 mm[Hg] Aurelio Jaden DO Work Phone: [facility] 12-08-2024 13:45-0400 Systolic blood pressure 126 mm[Hg] Aurelio Jaden DO Work Phone: [facility] 10-13-2024 15:16-0400 Body height 154.9 cm Rony Cox [employer]ATING [employer] Work Phone: [facility] 10-13-2024 15:16-0400 Body mass index (BMI) [Ratio] 42.8 kg/m2 Rony Cox GRANULATING MACHINE OPERATOR-BIBLIOGRAPHIC SERVICES SPECIALIST Work Phone: [facility] 10-13-2024 15:16-0400 Body temperature 99.3 [degF] Rony Cox APRN-BIBLIOGRAPHIC SERVICES SPECIALIST Work Phone: [facility] 10-13-2024 15:16-0400 Body weight 102.69 kg Rony Cox APRN-BIBLIOGRAPHIC SERVICES SPECIALIST Work Phone: [facility] 10-13-2024 15:16-0400 Diastolic blood pressure 78 mm[Hg] Rony Cox GRANULATING MACHINE OPERATOR-BIBLIOGRAPHIC SERVICES SPECIALIST Work Phone: [facility] 10-13-2024 15:16-0400 Heart rate 100 /min Rony Cox APRN-BIBLIOGRAPHIC SERVICES SPECIALIST Work Phone: [facility] 10-13-2024 15:16-0400 Respiratory rate 16 /min Rony Cox APRN-BIBLIOGRAPHIC SERVICES SPECIALIST Work Phone: [facility] 10-13-2024 15:16-0400 SaO2% (BldA) [Mass fraction] 98 % Rony Cox APRN-BIBLIOGRAPHIC SERVICES SPECIALIST Work Phone: [facility] 10-13-2024 15:16-0400 Systolic blood pressure 128 mm[Hg] Rony Cox APRN-BIBLIOGRAPHIC SERVICES SPECIALIST Work Phone: [facility] 09-22-2024 14:16-0400 Body mass index (BMI) [Ratio] 41.46 kg/m2 Aurelio Jaden DO Work Phone: [facility] 09-22-2024 14:16-0400 Body weight 99.52 kg Aurelio Jaden DO Work Phone: [facility] 09-22-2024 14:16-0400 Diastolic blood pressure 80 mm[Hg] Aurelio Jaden DO Work Phone: [facility] 09-22-2024 14:16-0400 Systolic blood pressure 130 mm[Hg] Aurelio Jaden DO Work Phone: [facility] 09-11-2024 10:49-0400 Body temperature 97.39 [degF] Kalin Aguirre GRANULATING MACHINE OPERATOR-BIBLIOGRAPHIC SERVICES SPECIALIST Work Phone: [facility] 09-11-2024 10:49-0400 Diastolic blood pressure 90 mm[Hg] Kalin Aguirre GRANULATING MACHINE OPERATOR-BIBLIOGRAPHIC SERVICES SPECIALIST Work Phone: [facility] 09-11-2024 10:49-0400 Heart rate 122 /min Kalin Aguirre GRANULATING MACHINE OPERATOR-BIBLIOGRAPHIC SERVICES SPECIALIST Work Phone: [facility] 09-11-2024 10:49-0400 SaO2% (BldA) [Mass fraction] 97 % Kalin Aguirre GRANULATING MACHINE OPERATOR-BIBLIOGRAPHIC SERVICES SPECIALIST Work Phone: [facility] 09-11-2024 10:49-0400 Systolic blood pressure 140 mm[Hg] Kalin Aguirre GRANULATING MACHINE OPERATOR-BIBLIOGRAPHIC SERVICES SPECIALIST Work Phone: [facility] 09-08-2024 14:24-0400 Body height 154.9 cm Rony Cox GRANULATING MACHINE OPERATOR-BIBLIOGRAPHIC SERVICES SPECIALIST Work Phone: [facility] 09-08-2024 14:24-0400 Body mass index (BMI) [Ratio] 41.46 kg/m2 Rony Cox GRANULATING MACHINE OPERATOR-BIBLIOGRAPHIC SERVICES SPECIALIST Work Phone: [facility] 09-08-2024 14:24-0400 Body temperature 98.6 [degF] Rony Cox GRANULATING MACHINE OPERATOR-BIBLIOGRAPHIC SERVICES SPECIALIST Work Phone: [facility] 09-08-2024 14:24-0400 Body weight 99.52 kg Rony Cox GRANULATING MACHINE OPERATOR-BIBLIOGRAPHIC SERVICES SPECIALIST Work Phone: [facility] 09-08-2024 14:24-0400 Diastolic blood pressure 98 mm[Hg] Rony Cox GRANULATING MACHINE OPERATOR-BIBLIOGRAPHIC SERVICES SPECIALIST Work Phone: [facility] 09-08-2024 14:24-0400 Heart rate 106 /min Rony Cox GRANULATING MACHINE OPERATOR-BIBLIOGRAPHIC SERVICES SPECIALIST Work Phone: [facility] 09-08-2024 14:24-0400 Respiratory rate 18 /min Rony Cox APRN-BIBLIOGRAPHIC SERVICES SPECIALIST Work Phone: [facility] 09-08-2024 14:24-0400 SaO2% (BldA) [Mass fraction] 99 % Rony Cox APRN-BIBLIOGRAPHIC SERVICES SPECIALIST Work Phone: [facility] 09-08-2024 14:24-0400 Systolic blood pressure 150 mm[Hg] Rony Cox APRN-BIBLIOGRAPHIC SERVICES SPECIALIST Work Phone: [facility] 08-19-2024 09:49-0500 Body mass index (BMI) [Ratio] 41.19 kg/m2 Aurelio Jaden Work Phone: [facility] 08-19-2024 09:49-0500 Body weight 98.88 kg Aurelio Jaden DO Work Phone: [facility] 08-19-2024 09:49-0500 Diastolic blood pressure 100 mm[Hg] Auerlio Jaden DO Work Phone: [facility] 08-19-2024 09:49-0500 Systolic blood pressure 144 mm[Hg] Aurelio Jaden DO Work Phone: [facility] 07-14-2024 13:03-0500 Body height 154.9 cm Rony Cox APRN-DAISY Work Phone: [facility] 07-14-2024 13:03-0500 Body mass index (BMI) [Ratio] 39.53 kg/m2 Rony Cox APRN-BIBLIOGRAPHIC SERVICES SPECIALIST Work Phone: [facility] 07-14-2024 13:03-0500 Body temperature 99 [degF] Rony Cox APRN-BIBLIOGRAPHIC SERVICES SPECIALIST Work Phone: [facility] 07-14-2024 13:03-0500 Body weight 94.89 kg Rony Cox APRN-BIBLIOGRAPHIC SERVICES SPECIALIST Work Phone: [facility] 07-14-2024 13:03-0500 Diastolic blood pressure 80 mm[Hg] Rony Cox APRN-BIBLIOGRAPHIC SERVICES SPECIALIST [facility] 07-14-2024 13:03-0500 Heart rate 100 /min Rony Cox APRN-BIBLIOGRAPHIC SERVICES SPECIALIST [facility] 07-14-2024 13:03-0500 Respiratory rate 18 /min Rony Cox GRANULATING MACHINE OPERATOR-BIBLIOGRAPHIC SERVICES SPECIALIST [facility] 07-14-2024 13:03-0500 SaO2% (BldA) [Mass fraction] 99 % Rony Cox APRN-BIBLIOGRAPHIC SERVICES SPECIALIST Work Phone: [facility] 07-14-2024 13:03-0500 Systolic blood pressure 120 mm[Hg] Rony Cox APRN-BIBLIOGRAPHIC SERVICES SPECIALIST Work Phone: [facility] Encounters Encounter Date Encounter Type Care Provider Facility Start: 04-06-2025 End: 04-06-2025 Clinisync Result Encounter Aurelio Jaden DO Work Phone: [facility] Unsolicited Start: 04-06-2025 End: 04-06-2025 Clinisync Result Encounter Aurelio Jaden DO Work Phone: [facility] Unsolicited Start: 03-19-2025 End: 03-19-2025 Office outpatient visit 15 minutes Aurelio Jaden DO Work Phone: [facility] Comment on above: Pre-op examination; Pelvic pain; Dyspareunia in female; Dysmenorrhea; Menorrhagia with regular cycle Start: 03-19-2025 End: 03-19-2025 Preprocedural examination done Aurelio Jaden DO Work Phone: [facility] Start: 03-19-2025 End: 03-19-2025 ambulatory AURELIO JADEN Not Available Start: 01-29-2025 End: 01-30-2025 Refill Ronylamonte Cox GRANULATING MACHINE OPERATOR-BIBLIOGRAPHIC SERVICES SPECIALIST Work Phone: [facility] Comment on above: Insomnia, unspecifie d type Start: 01-20-2025 End: 01-22-2025 Refill Rony Cox GRANULATING MACHINE OPERATOR-BIBLIOGRAPHIC SERVICES SPECIALIST Work Phone: [facility] Comment on above: Nephrolithiasis; Bipolar affective disorder, currently depressed, mild ([facility]); Lumbar back pain with radiculopathy affecting left lower extremity Start: 12-08-2024 End: 12-08-2024 Bamboo flowsheet Aurelio Jaden DO Work Phone: [facility] Start: 12-08-2024 End: 12-11-2024 Bamboo flowsheet Aurelio Jaden DO Work Phone: [facility] Start: 12-08-2024 End: 12-11-2024 Clinisync Result Encounter Aurelio Jaden DO Work Phone: [facility] External Department Unsolicited Start: 12-08-2024 End: 12-08-2024 Patient encounter procedure Aurelio Jaden DO Work Phone: [facility] Work Phone: Start: 12-08-2024 End: 12-08-2024 Periodic preventive med est patient 18-39 yrs Aurelio Jaden DO Work Phone: [facility] Comment on above: Well woman exam with routine gynecological exam; Pelvic pain in female; Menorrhagia with regular cycle Start: 12-08-2024 End: 12-08-2024 ambulatory AURELIO JADEN Not Available Start: 11-28-2024 End: 12-01-2024 Refill Rony Cox GRANULATING MACHINE OPERATOR-BIBLIOGRAPHIC SERVICES SPECIALIST Work Phone: [facility] Comment on above: Bipolar affective di sorder, currently depressed, mild ([facility]) Start: 11-25-2024 ambulatory RONY COX [facility] Start: 11-19-2024 End: 11-19-2024 Orders Only Rony Cox GRANULATING MACHINE OPERATOR-BIBLIOGRAPHIC SERVICES SPECIALIST Work Phone: [facility] Comment on above: Leukocytosis, unspec ified type (Primary Dx) Start: 11-18-2024 End: 11-18-2024 Orders Only Rony Cox GRANULATING MACHINE OPERATOR-BIBLIOGRAPHIC SERVICES SPECIALIST [facility] Start: 11-05-2024 End: 11-06-2024 Refill Rony Cox GRANULATING MACHINE OPERATOR-BIBLIOGRAPHIC SERVICES SPECIALIST Work Phone: [facility] Comment on above: Migraine without aur a and without status migrainosus, not intractable Start: 10-13-2024 End: 10-13-2024 ambulatory [facility] Start: 10-13-2024 Encounter for genera l adult medical examination without abnormal findings [facility] Start: 10-13-2024 End: 10-13-2024 Patient encounter procedure Rony Cox GRANULATING MACHINE OPERATOR-BIBLIOGRAPHIC SERVICES SPECIALIST Work Phone: [facility] Start: 10-13-2024 End: 10-13-2024 Periodic preventive med est patient 18-39 yrs Rony Grayillo GRANULATING MACHINE OPERATOR-BIBLIOGRAPHIC SERVICES SPECIALIST Work Phone: [facility] Comment on above: Annual physical exam (Primary Dx); Insomnia, unspecified type; Blood tests for routine general physical examination Start: 10-13-2024 End: 10-13-2024 Physical examination Rony Cox GRANULATING MACHINE OPERATOR-BIBLIOGRAPHIC SERVICES SPECIALIST Work Phone: [facility] Start: 10-13-2024 End: 10-13-2024 ambulatory [facility] Start: 10-13-2024 Encounter for genera l adult medical examination without abnormal findings [facility] Start: 10-11-2024 End: 10-13-2024 Refill Rony Carla GrayCox GRANULATING MACHINE OPERATOR-BIBLIOGRAPHIC SERVICES SPECIALIST Work Phone: [facility] [...] Start: 09-11-2024 End: 09-11-2024 Orders Only Rony Cox GRANULATING MACHINE OPERATOR-BIBLIOGRAPHIC SERVICES SPECIALIST Work Phone: [facility] Start: 09-09-2024 End: 09-11-2024 Telephone encounter Jumana Natasha [facility] Start: 09-08-2024 End: 09-08-2024 Office outpatient visit 15 minutes Rony Cox GRANULATING MACHINE OPERATOR-BIBLIOGRAPHIC SERVICES SPECIALIST Work Phone: [facility] Comment on above: Benign essential HTN (Primary Dx) Start: 09-08-2024 End: 09-08-2024 ambulatory RONY COX [facility] Start: 09-07-2024 End: 09-08-2024 Refill Rony Cox GRANULATING MACHINE OPERATOR-BIBLIOGRAPHIC SERVICES SPECIALIST Work Phone: [facility] [...] examination done Aurelio Jaden DO Work Phone: [facility] Start: 08-11-2024 End: 08-11-2024 Refill Rony Cox GRANULATING MACHINE OPERATOR-BIBLIOGRAPHIC SERVICES SPECIALIST Work Phone: [facility] Comment on above: Lumbar back pain wit h radiculopathy affecting left lower extremity Start: 07-15-2024 End: 07-15-2024 Orders Only Rony Cox GRANULATING MACHINE OPERATOR-BIBLIOGRAPHIC SERVICES SPECIALIST [facility] Comment on above: Vitamin D deficiency (Primary Dx) Start: 07-14-2024 End: 07-14-2024 ambulatory RONY COX [facility] Start: 07-14-2024 End: 07-14-2024 Office outpatient visit 25 minutes Rony Cox GRANULATING MACHINE OPERATOR-BIBLIOGRAPHIC SERVICES SPECIALIST [facility] Comment on above: Vitamin D deficiency (Primary Dx); Bipolar affective disorder, currently depressed, mild ([facility]); Chronic seasonal allergic rhinitis; Nephrolithiasis; Lumbar back pain with radiculopathy affecting left lower extremity; Migraine without aura and without status migrainosus, not intractable Start: 07-14-2024 End: 07-14-2024 ambulatory RONY COX [facility] Start: 07-12-2024 End: 07-14-2024 Refill Darrell Hernandez DO [facility] Comment on above: Lumbar back pain wit h radiculopathy affecting left lower extremity Start: 06-09-2024 End: 06-09-2024 [facility] Comment on above: Bipolar affective di sorder, currently depressed, mild ([facility]); Canker sores oral; Vitamin D deficiency; Chronic seasonal allergic rhinitis; Mineral metabolism disorder; Nephrolithiasis; Lumbar back pain with radiculopathy affecting left lower extremity; Migraine without aura and without status migrainosus, not intractable Start: 02-12-2024 End: 02-14-2024 Refill [facility] Comment on above: Lumbar back pain wit h radiculopathy affecting left lower extremity Start: 12-15-2023 End: 12-17-2023 Refill Rony Cox GRANULATING MACHINE OPERATOR-BIBLIOGRAPHIC SERVICES SPECIALIST Work Phone: [facility] Comment on above: Lumbar back pain wit h radiculopathy affecting left lower extremity Start: 11-08-2023 End: 11-08-2023 Refill Rony Grayillo GRANULATING MACHINE OPERATOR-BIBLIOGRAPHIC SERVICES SPECIALIST Work Phone: [facility] Comment on above: Bipolar affective di sorder, currently depressed, mild ([facility] [place]) Start: 10-14-2023 End: 10-15-2023 Refill Rony J Cox GRANULATING MACHINE OPERATOR-BIBLIOGRAPHIC SERVICES SPECIALIST Work Phone: [facility] Comment on above: Lumbar back pain wit h radiculopathy affecting left lower extremity; Bipolar affective disorder, currently depressed, mild ([facility] Start: 09-12-2023 Refill Rony barnardo GRANULATING MACHINE OPERATOR-BIBLIOGRAPHIC SERVICES SPECIALIST Work Phone: [facility] Comment on above: Lumbar back pain wit h radiculopathy affecting left lower extremity; Vitamin D deficiency Start: 08-14-2023 Refill Rony J Cast illo GRANULATING MACHINE OPERATOR-BIBLIOGRAPHIC SERVICES SPECIALIST Work Phone: [facility] Comment on above: Lumbar back pain wit h radiculopathy affecting left lower extremity Start: 08-06-2023 Refill Rony J Cast illo GRANULATING MACHINE OPERATOR-BIBLIOGRAPHIC SERVICES SPECIALIST Work Phone: [facility] Start: 02-21-2023 End: 02-22-2023 ambulatory RONY COX [facility] Start: 02-21-2023 End: 02-21-2023 Patient encounter procedure Li Nicholsmetz [facility] Start: 01-24-2023 ambulatory RONY [...] Start: 10-27-2020 End: 10-28-2020 ambulatory [facility] Start: 10-27-2020 End: 10-27-2020 [facility] Start: 10-27-2020 End: 10-28-2020 ambulatory [facility] Start: 10-27-2020 End: 10-27-2020 [facility] Start: 06-03-2020 End: 2020 ambulatory [facility] Start: 06-03-2020 End: 06-03-2020 Subsequent hospital visit by physician [facility] Start: 05-12-2020 End: 05-13-2020 ambulatory [facility]IEGO [facility] Start: 05-12-2020 End: 05-12-2020 Subsequent hospital visit by physician [facility] Start: 05-11-2020 End: 05-12-2020 ambulatory [facility] Start: 05-11-2020 End: 05-11-2020 Subsequent hospital visit by physician [facility] Start: 12-02-2019 End: 12-03-2019 Patient encounter procedure Gerson Sheppard Facility:[facility] Procedures Date Procedure Procedure Detail Performing Clinician Start: 04-06-2025 ALL CBC WITH AUTO DIFF Aurelio Jaden DO Work Phone: Start: 04-06-2025 ECG 12-LEAD Aurelio Fazi o DO Work Phone: Start: 12-08-2024 IGP,APTIMA HPV,AGE GDLN Aurelio Jaden DO Work Phone: Start: 09-01-2024 ECG 12-LEAD Aurelio Fazi o DO Work Phone: Start: 09-01-2024 ALL BASIC METABOLIC PANEL Aurelio Jaden DO Work Phone: Start: 06-14-2023 Adult depression scr eening assessment Rony Cox GRANULATING MACHINE OPERATOR-[employer] Work Phone: Start: 09-19-2022 Microscopic observat ion [Identifier] in Cervix by Cyto stain Rony Cox GRANULATING MACHINE OPERATOR-[employer] Work Phone: Start: 10-27-2020 Antibody hiv-1&hiv-2 single result Diego Hernandez GRANULATING MACHINE OPERATOR - BIBLIOGRAPHIC SERVICES SPECIALIST Work Phone: Start: 10-27-2020 Comprehensive metabo lic panel Diego David GRANULATING MACHINE OPERATOR - BIBLIOGRAPHIC SERVICES SPECIALIST Work Phone: Start: 10-27-2020 IMMATURE PLATELET FRACTION Diego Hernandez GRANULATING MACHINE OPERATOR - BIBLIOGRAPHIC SERVICES SPECIALIST Work Phone: Start: 05-12-2020 Antibody hiv-1&hiv-2 single result DIEGO DAVID Start: 05-12-2020 Blood count complete automated DIEGO HERNANDEZ Start: 05-12-2020 Iadna hepatitis c qu ant & reverse lockstitch collar setter DIEGO HERNANDEZ Start: 05-12-2020 Acute hepatitis panel [...] Up Plan Adult [facility] Start: 10-13-2025 Adult BMI Screening Adult BMI Screen [facility] Start: 10-13-2025 Tobacco Screening Tobacco Screening [facility] Start: 09-19-2025 Screening for malign ant neoplasm of cervix Pap Smear [facility] Start: 09-08-2025 Adult BMI Follow Up Plan Adult BMI Follow Up Plan [facility] Start: 09-08-2025 Adult BMI Screening Adult BMI Screen ing [facility] Start: 09-08-2025 Tobacco Screening Tobacco Screening [facility] Start: 07-14-2025 Adult BMI Follow Up Plan Adult BMI Follow Up Plan [facility] Start: 07-14-2025 Adult BMI Screening Adult BMI Screen ing [facility] Start: 07-14-2025 Tobacco Screening Tobacco Screening [facility] Start: 05-27-2025 End: 05-27-2025 Patient encounter procedure 05/27/2025 9:30 AM EST [facility] [address] [place] [phone] Celeste Camacho, PA [address] [place], [place] [id number] [facility] Start: 04-22-2025 End: 04-22-2025 Patient encounter procedure 04/22/2025 10:30 AM EDT Office Visit [facility] [address] [place] [id number] Celeste Camacho PA [address] [place] [address] [facility] Start: 04-14-2025 End: 04-14-2025 Patient encounter procedure [facility] Start: 03-02-2025 Influenza vaccination Influenza Vacc [facility] Start: 12-08-2024 End: 12-08-2024 Patient encounter procedure [facility] Comment on above: Arrived Start: 10-13-2024 End: 10-13-2024 Patient encounter procedure 10/13/2024 3:20 PM EDT Office Visit [facility] [address] [place] [phone] Rony Cox, GRANULATING MACHINE OPERATOR-[facility] [address] [place] [address] [facility] Start: 09-22-2024 End: 09-22-2024 Patient encounter procedure 09/22/2024 2:20 PM EDT Office Visit [facility] [address] [place] [phone] Aurelio Stanley DO [address] [place], [place] [id number] Arrived [facility] Comment on above: Arrived Start: 09-11-2024 End: 09-11-2024 Clinical Support 09/11/2024 11:00 AM EDT Clinical Support [facility] Medicine [address] [place] [address] [facility] Internal Medicine - Family Medicine Start: 09-08-2024 End: 09-08-2024 Patient encounter procedure 09/08/2024 2:20 PM EDT Office Visit [facility] Internal Medicine - Family Medicine [address] [place] [address] Rony Cox, GRANULATING MACHINE OPERATOR-BIBLIOGRAPHIC SERVICES SPECIALIST [address] [place] [address] [facility] Internal Medicine - Family Medicine Start: 07-14-2024 End: 07-14-2024 Patient encounter procedure 07/14/2024 1:00 PM EST Office Visit [facility] Internal Medicine - Family Medicine [address] [place] [address] Rony Cox, GRANULATING MACHINE OPERATOR-BIBLIOGRAPHIC SERVICES SPECIALIST [address] [place] [address] [facility] Internal Medicine - Family Medicine Start: 07-11-2024 Tobacco Counseling [facility] Start: 07-03-2024 End: 07-03-2024 Patient encounter procedure 07/03/2024 11:40 AM EST Office Visit [facility] Internal Medicine - Family Medicine [address] [place] [address] Rony Cox, GRANULATING MACHINE OPERATOR-BIBLIOGRAPHIC SERVICES SPECIALIST [address] [place] [address] [facility] Internal Medicine - Family Medicine Start: 06-14-2024 Adult BMI Follow Up Plan Adult BMI Follow Up Plan [facility] Start: 06-14-2024 Adult BMI Screening Adult BMI Screen ing [facility] Start: 06-14-2024 Depression Screening Depression Scre ening [facility] Start: 06-14-2024 Tobacco Screening Tobacco Screening [facility] Start: 03-24-2024 End: 03-24-2024 Patient encounter procedure 03/24/2024 3:20 PM EDT Office Visit [facility] Internal Medicine - Family Medicine [address] [place] [address] Rony Cox, GRANULATING MACHINE OPERATOR-BIBLIOGRAPHIC SERVICES SPECIALIST [address] [place] [address] [facility] Start: 03-02-2024 Influenza vaccination Influenza Vacc ine [facility] Start: 03-02-2023 Influenza vaccination Influenza Vacc ine [facility] Start: 03-02-2021 Influenza vaccination Flu vacc ine (Season Ended) [facility] [employer] Work Phone: Start: 03-02-2020 Influenza vaccination Flu vaccine (# 1) [facility] [place] Start: 12-21-2019 DTaP,Tdap and Td Vaccines (2 - Td or Tdap) DTaP,Tdap and Td Vaccines (2 - Td or Tdap) [facility] Start: 2008 Screening for malign ant neoplasm of cervix Pap Smear [facility] Start: 2003 COVID-19 Vaccine (1) COVID-19 Vaccin e (1) [employer] Work Phone: Start: 1987 Tobacco Counseling [facility] Counselin [facility] End: 10-13-2025 CBC W Auto Differential panel - Blood CBC auto differential Lab Routine Blood tests for routine general physical examination 1 Occurrences starting 10/13/2024 until 10/13/2025 [facility] Comment on above: 1 Occurrences starti ng 10/13/2024 until 10/13/2025 CBC W Auto Different ial panel - Blood CBC auto differential Lab Routine Blood tests for routine general physical examination 10/13/2024 9:51 PM EDT [facility] [employer] [facility] End: 10-13-2025 Comprehensive metabolic 2000 panel - Serum or Plasma Comprehensive metabolic panel Lab Routine Blood tests for routine general physical examination 1 Occurrences starting 10/13/2024 until 10/13/2025 [employer] Phone: Comment on above: 1 Occurrences starti ng 10/13/2024 until 10/13/2025 Comprehensive metabo lic 2000 panel - Serum or Plasma Comprehensive metabolic panel Lab Routine Blood tests for routine general physical examination 10/13/2024 9:51 PM EDT [facility] Cervical or vaginal smear or scraping study Pap Smear Pathology and Cytology Routine Well woman exam with routine gynecological exam Ordered: 12/08/2024 [employer] Work Phone: Comment on above: Ordered: 12/08/2024 End: 11-19-2025 Flow Cytometry, Varies Flow Cytometry, Varies Pathology and Cytology Routine Leukocytosis, unspecified type 1 Occurrences starting 11/19/2024 until 11/19/2025 [employer] Phone: Comment on above: 1 Occurrences starti ng 11/19/2024 until 11/19/2025 End: 10-13-2025 Hemoglobin A1c/Hemoglobin.total in Blood Hemoglobin A1c Lab Routine Blood tests for routine general physical examination 1 Occurrences starting 10/13/2024 until 10/13/2025 [employer] Comment on above: 1 Occurrences starti ng 10/13/2024 until 10/13/2025 Hemoglobin A1c/Hemoglobin.total in Blood Hemoglobin A1c Lab Routine Blood tests for routine general physical examination 10/13/2024 9:51 PM EDT [employer] End: 05-12-2020 Hepatitis C RNA, quantitative, PCR Hepatitis C RNA, quantitative, PCR Lab Routine Once for 1 Occurrences starting 05/12/2020 until 05/12/2020 [facility] [employer] Comment on above: Once for 1 Occurrenc es starting 05/12/2020 until 05/12/2020 Hepatitis C RNA, quantitative, PCR [facility] [employer] End: 10-27-2020 Hepatitis C RNA, quantitative, PCR Hepatitis C RNA, quantitative, PCR Lab Routine Once for 1 Occurrences starting 10/27/2020 until 10/27/2020 [employer] Phone: Comment on above: Once for 1 Occurrenc es starting 10/27/2020 until 10/27/2020 Human papilloma viru s DNA [Presence] in Unspecified specimen by Probe with amplification HPV DNA probe, amplified Microbiology Routine Well woman exam with routine gynecological exam Ordered: 12/08/2024 [facility] Comment on above: Ordered: 12/08/2024 End: 10-13-2025 Lipid 1996 panel - Serum or Plasma Lipid profile Lab Routine Blood tests for routine general physical examination 1 Occurrences starting 10/13/2024 until 10/13/2025 [facility] [employer] [facility] Comment on above: 1 Occurrences starti ng 10/13/2024 until 10/13/2025 Lipid 1996 panel - S daphne or Plasma Lipid profile Lab Routine Blood tests for routine general physical examination 10/13/2024 9:51 PM ED[facility] End: 10-13-2025 Thyrotropin [Units/volume] in Serum or Plasma TSH Lab Routine Blood tests for routine general physical examination 1 Occurrences starting 10/13/2024 until 10/13/[address] [facility] [facility] Comment on above: 1 Occurrences starti ng 10/13/2024 until 10/13/2025 Thyrotropin [Units/volume] in Serum or Plasma TSH Lab Routine Blood tests for routine general physical examination 10/13/2024 9:51 PM EDT [facility] End: 07-15-2025 Vitamin D 25 hydroxy Vitamin D 25 hydroxy Lab Routine Vitamin D deficiency 1 Occurrences starting 07/14/2024 until 07/15/2025 [employer] Work Phone: Comment on above: 1 Occurrences starti ng 07/14/2024 until 07/15/2025 Immunizations Immunization Date Immunization Notes Care Provider Jordan walter 12-20-2009 tetanus toxoid, redu jarrett diphtheria toxoid, and acellular pertussis vaccine, adsorbed Li Deutsch [facility] Payers Date Payer Category Payer Medicaid [id number] 2019 Unknown 2018 Unknown [id number] 1.2 .[id number] 1987 Unknown [id number] 2.16.8 40.1.488056.3.579.2.196 1987 Unknown [id number] 2.16.8 40.1.834980.3.579.2.173 1987 Unknown [id number] 2.16.8 40.1.267216.3.579.2.173 1987 Unknown [id number] 2.16.8 40.1.452246.3.579.2.173 1987 Unknown [id number] 2.16.84 0.1.680488.3.579.2.593 1987 Unknown [id number] 2.16.84 0.1.561022.3.579.2.593 1987 Unknown [id number] 2.16.84 0.1.668047.3.579.2.593 1987 Unknown [id number] 2.16.84 0.1.097472.3.579.2.593 1987 Unknown [id number] 2.16.84 0.1.114726.3.579.2.593 1987 Unknown [id number] 2.16.8 40.1.676311.3.579.2.727 1987 Unknown [id number] 2.16. 840.1.553576.3.579.2.1286 1987 Unknown [id number] 2.16. 840.1.897901.3.579.2.1286 1987 Unknown [id number] 2.16. 840.1.757594.3.579.2.1286 1987 Unknown [id number] 2.16. 840.1.353856.3.579.2.1286 1987 Unknown [id number] 2.16. 840.1.502312.3.579.2.1286 1987 Unknown [id number] 2.16. 840.1.354999.3.579.2.1286 1987 Unknown [id number] 2.16. 840.1.863126.3.579.2.1286 1987 Unknown [id number] 2.16.8 40.1.586588.3.579.2.1259 1987 Unknown [id number] 2.16.8 40.1.202026.3.579.2.1259 1987 Unknown [id number] 2.16.84 0.1.073012.3.579.2.1259 1987 Unknown [id number] 2.16.84 0.1.796430.3.579.2.1259 1959 Medicaid [id number] 1959 Unknown [id number] 1959 Unknown [id number] Social History Date Type Detail Facility Tobacco smoking stat [facility] Unknown if ever smoked [facility] [place] [place] Start: 1985 Sex Assigned At Not on file [place], [place] Tobacco smoking status No Smokin g Status Entered [facility] Start: 06-14-2023 End: 01-07-2024 Sex Assigned At Female [facility] Start: 11-06-2022 End: 11-06-2023 Tobacco smoking status IDIS Smokes tobacco daily [facility] History of tobacco use Cigarette Smoker [facility] Start: 11-06-2022 End: 01-07-2024 Cigarettes smoked current (pack per day) - Reported 0.5 [facility] Start: 11-06-2022 End: 11-06-2023 Tobacco use and exposure Smokeless tobacco non-user [facility] Start: 06-14-2023 End: 09-08-2024 Alcoholic beverage intake Ex-drinker (finding) [facility] How hard is it for y ou to pay for the very basics like food, housing, medical care, and heating Hard [facility] Adolescent depressio n screening assessment 0 [facility] Start: 02-04-2015 Sex Female (finding) [facility] Start: 01-07-2024 End: 12-08-2024 Alcoholic beverage intake Lifetime non-drinker (finding) [facility] Start: 1987 Sex assigned at Female [facility] Start: 09-25-2023 Gender identity Identifies as female gender (finding) [facility] Clinical Notes 06-08-2022 to 03-19-2025 Ella Kothari - 03/19/2025 9:10 AM EDTTelephone Encounter - Polly Bryant, GRANULATING MACHINE OPERATOR-BIBLIOGRAPHIC SERVICES SPECIALIST - 01/20/2025 12:26 AM EDTTelephone Encounter - Felicitas Gamino, TANNER - 01/20/2025 12:26 AM EDTPatient Instructions Note Date & Type Note Facility 03-19-2025 History of Present illness Narrative Reason for Appointment: Patient ID: Rick Hsu is a 39 y.o. female who presents for Pre-op Visit Patient presents today for Pre Op appointment. Patient is scheduled to undergo Total Abdominal Hysterectomy, possible BSO, possible cystoscopy on 04-15-[address] Stanley at [facility]. MEDICATIONS Current Outpatient Medications Medication Instructions ARIPiprazole [...] Problems Past Medical History: Diagnosis Date Ectopic ([facility]) High blood pressure Kidney stones HISTORY PAST MEDICAL HISTORY SOCIAL HISTORY Past Medical History: Diagnosis Date Ectopic ([facility]) High blood pressure Kidney stones Social History [...] nursing note reviewed. Exam conducted with a automobile drivers present. Vitals: Estimated body mass index is [...] reviewed, and patient is to proceed to [facility] OR. Follow Up: Patient is to follow up at 1 & 6 weeks post operative to assess proper healing and recovery from procedure. Documented by Aurelio Stanley DO documented in this encounter [facility] 01-20-2025 Miscellaneous Notes Pt needs to choose provider and set up appt, due for lab re-check Left message to call back and schedule with provider of her choice documented in this encounter [facility] 01-20-2025 Telephone encounter Note Pt needs to choose provider and set up appt, due for lab re-check [facility] 01-20-2025 Telephone encounter Note Left message to call back and schedule with provider of her choice [facility] 12-08-2024 History of Present illness Narrative Reason [...] nursing note reviewed. Exam conducted with a automobile drivers present. Vitals: Estimated body mass index is 43.42 kg/m as calculated from the following: Height as of 24: 5' 1 . Weight as of this [...] difficulty. Patient advised to reach out to automobile upholsterer if she decides to proceed to OR [...] Aurelio Stanley DO documented in this encounter [facility] 11-18-2024 History of Present illness Narrative Attempted to notify patient regarding abnormal labs. Unable to reach. LISA Walker 11/18/24 1310 documented in this encounter [facility] [employer] [facility] 10-13-2024 History of Present illness Narrative Images from the original note were not included[place] [address] SUBJECTIVE: Patient ID: Farideh Hsu is a [...] Trazodone 100 mg oral nightly She has echo vascular technologist, Dr. Stanley. Recently had exploratory lap [...] Walker 10/13/24 1558 documented in this encounter [facility] 10-13-2024 Instructions LISA Walker - 10/13/2024 3:20 PM EDT Are You Ready To Kick The Habit? Free Tobacco Cessation Resources [facility] Services [facility] Centers provide all employees with free tobacco cessation services that include: Counseling to understand nicotine addiction Education about medications that can help you successfully quit Assistance with developing a plan to quit Call to set up an individual appointment or find out when group classes will be held: [facility]: [phone] [facility]: [phone] [facility]: [phone] [facility]: [phone] Quit Smoking Action Plan and Resources [facility] offers an eight-week, online smoking cessation plan to all [facility] employees, regardless of whether [employer] is your medical insurance provider. Go to [email or web address] and click the Health Risk Assessment and Resources link to get started. In the [employer] menu, click Action Plans instead of Health Risk Assessment to access the Quit Smoking Action Plan. Additional smoking cessation resources are also available to all [facility] employees on the Rbe[employer]Qkts[employer] web page at [email or web address] [email or web address]. [employer] Tobacco Cessation Program If [employer] is your medical insurance provider, there are more free resources available to you, including: No copays or deductibles on local tobacco cessation counseling services to help you quit Prescription assistance for tobacco cessation medications to help you quit For details about the tobacco cessation program available to [employer] members, go to www.[employer].TeraView (Search: Tobacco Cessation Program). [place] Tobacco Quit Line 3-844-SJVH-NOW ( ) is a toll-free, telephonic service that helps [place] residents quit smoking and using tobacco. It is staffed by experts who tailor a quit plan for you and provide you with advice. [place] Tobacco Quit Line 2-135-BWSU-NOW ( ) is a toll-free, telephonic service that helps [place] residents quit smoking and using tobacco. It is staffed by experts who tailor a quit plan for you and provide you with advice. Two weeks of nicotine replacement therapy may be provided at no charge, if needed. Additional Resources These national organizations also offer free information and resources to help you quit tobacco: [place] [employer]--www.cancer.org/healthy/s tayawayfromtobacco [place] [employer]--www.heart.org (Search: Quit Smoking) Centers for Disease Control and Prevention--www.cdc.gov/tobacco [place] Lung Association--www.lungusa.org The following attachments cannot be sent through Care Everywhere.Lowering Your Risk of Colon Cancer ([place])Yearly Physical for Adults ([place])documented in this encounter [employer] 09-22-2024 History of Present illness Narrative Reason [...] nursing note reviewed. Exam conducted with a automobile drivers present. Vitals: Estimated body mass index is [...] could be referred to Dr. Dozier in [place]. Patient to monitor symptoms after surgery as she is having discomfort. If patient starts to have symptoms again then she is to reach out to office and surgical procedure could be discussed. Patient to return to clinic for routine annual appointment. Documented by Yoon Baker LPN on behalf of: Aurelio Stanley DO documented in this encounter [facility] 09-11-2024 History of Present illness Narrative Patient was here for her blood pressure to be checked. documented in this encounter [facility] 09-09-2024 Miscellaneous Notes [facility] called for a preop clearance , I seen she comes back . Canyou send that as soon as you get it ? fax# [phone] I have a clearance letter which needs faxed. done documented in this encounter [facility] 09-09-2024 Telephone encounter Note [facility] called for a preop clearance , I seen she comes back . Canyou send that as soon as you get it ? fax# [phone] [facility] 09-09-2024 Telephone encounter Note I have a clearance letter which needs faxed. [facility] 09-09-2024 Telephone encounter Note done [facility] 09-08-2024 History of Present illness Narrative Images from the original note were not included. [address] [place] [address] SUBJECTIVE: Patient ID: Farideh Hsu is a [...] Walker 09/08/24 1441 documented in this encounter [facility] 08-19-2024 History of Present illness Narrative Reason for Appointment: Patient ID: Rick Hsu is a 39 y.o. female who presents for Pre-op Visit Patient presents today for Pre Op appointment. Patient is scheduled to undergo Diagnostic Laparoscopy, possible BREANN, possible FOE, possible BSO on 09/12/[address] Stanley at [facility]. MEDICATIONS Current Outpatient Medications Medication Instructions ARIPiprazole [...] nursing note reviewed. Exam conducted with a automobile drivers present. Vitals: Estimated body mass index is [...] reviewed, and patient is to proceed to [facility] OR. Follow Up: Patient is to follow up between 1-2 weeks post operative to assess proper healing and recovery from procedure. Documented by Bessie Ely LPN on behalf of: Aurelio Stanley DO documented in this encounter [facility] 07-14-2024 History of Present illness Narrative Images from the original note were not included. [address] [place] [address] SUBJECTIVE: Patient ID: Farideh Hsu is a [...] visit: Bipolar affective disorder, currently depressed, mild (CMS-HCC) - ARIPiprazole (ABILIFY) 5 mg tablet; Take [...] Walker 07/14/24 1331 documented in this encounter [facility] [facility] 02-12-2024 Miscellaneous Notes ----- Message from LISA Rodriguez sent at 02/12/2024 12:24 PM EDT ----- No future ketty scheduled. Overdue for wellness, follow up LM on VM Scheduled [facility] Telephone encounter Note ----- Message from LISA Rodriguez sent at 02/12/2024 12:24 PM EDT ----- No future ketty scheduled. Overdue for wellness, [facility] 02-12-2024 Telephone encounter Note LM on VM [facility] 02-12-2024 Telephone encounter Note Scheduled 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 Urinary tract infection, site unspecified Nephrolithiasis Calculus of kidney Lumbar back pain with radiculopathy affecting left lower extremity [facility] Diagnosis 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 Urinary tract infection, site unspecified Nephrolithiasis Calculus of kidney Vitamin D deficiency- Primary Bipolar affective disorder, currently depressed, mild ([facility]CC) Bipolar I disorder, most recent episode (or current) depressed, mild Chronic seasonal allergic rhinitis Nephrolithiasis Calculus of kidney Lumbar back pain with radiculopathy affecting left lower extremity Migraine without aura and without status migrainosus, not intractable [facility] Diagnosis 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 Urinary tract infection, site unspecified Nephrolithiasis Calculus of kidney Vitamin D deficiency- Primary [facility] Diagnosis Bipolar affective disorder, currently depressed, mild (CMS-HCC) Bipolar I disorder, most recent episode (or current) depressed, mild [facility] Diagnosis 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 Urinary tract infection, site unspecified Nephrolithiasis Calculus of kidney Lumbar back pain with radiculopathy affecting left lower extremity [facility] Diagnosis Lumbar back pain with radiculopathy affecting left lower extremity [facility] Diagnosis Lumbar back pain with radiculopathy affecting left lower extremity [facility]* Diagnosis Lumbar back pain with radiculopathy affecting left lower extremity Vitamin D deficiency [facility]* Diagnosis Lumbar back pain with radiculopathy affecting left lower extremity Bipolar affective disorder, currently depressed, mild (CMS-HCC) Bipolar I disorder, most recent episode (or current) depressed, mild [facility]* Diagnosis 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 Urinary tract infection, site unspecified Nephrolithiasis Calculus of kidney Bipolar affective disorder, currently depressed, mild (CMS-HCC) Bipolar I disorder, most recent episode (or current) depressed, mild Canker sores oral Oral aphthae Vitamin D deficiency Chronic seasonal allergic rhinitis 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 Nephrolithiasis Calculus of kidney Lumbar back pain with radiculopathy affecting left lower extremity Migraine without aura and without status migrainosus, not intractable documented in this encounter [facility]* Diagnosis Pre-op examination Pelvic pain in female Unspecified symptom associated with female genital organs documented [facility] encounter [facility]* Diagnosis 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 Urinary tract infection, site unspecified Nephrolithiasis Calculus of kidney Migraine without aura and without status migrainosus, not intractable [facility]* Diagnosis 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 Urinary tract infection, site unspecified Nephrolithiasis Calculus of kidney Benign essential HTN- Primary [facility]* Diagnosis Postoperative follow-up Follow-up examination, following unspecified surgery Endometriosis Endometriosis, site unspecified documented in this encounter [facility] HealthcareEvaluation [facility]* Diagnosis 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 Urinary tract infection, site unspecified Nephrolithiasis Calculus of kidney Lumbar back pain with radiculopathy affecting left lower extremity documented in this [facility]* Diagnosis 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 Urinary tract infection, site unspecified Nephrolithiasis Calculus of kidney Annual physical exam- Primary Routine general medical examination at a health care facility Insomnia, unspecified type Blood tests for routine general physical examination Laboratory examination ordered as part of a routine general medical examination documented in this [facility]* Diagnosis 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 Urinary tract infection, site unspecified Nephrolithiasis Calculus of kidney Migraine without aura and without status migrainosus, not intractable documented [facility] this [facility]* Diagnosis 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 Urinary tract infection, site unspecified Nephrolithiasis Calculus of kidney Leukocytosis, unspecified type- Primary documented in this [facility]* Diagnosis 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 Urinary tract infection, site unspecified Nephrolithiasis Calculus of kidney Bipolar affective disorder, currently depressed, mild ([facility] [place] [place]) Bipolar I disorder, most recent episode (or current) depressed, mild documented [facility]* Diagnosis Well woman exam with routine gynecological exam Routine gynecological examination Pelvic pain in female Unspecified symptom associated with female genital organs Menorrhagia with regular cycle documented in this encounter [facility] HealthcareEvaluation note* Diagnosis 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 Urinary tract infection, site unspecified Nephrolithiasis Calculus of kidney Nephrolithiasis Calculus of kidney Bipolar affective disorder, currently depressed, mild ([facility] Bipolar I disorder, most recent episode (or current) depressed, mild Lumbar back pain with radiculopathy affecting left lower extremity documented [facility] this [facility]* Diagnosis 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 Urinary tract infection, site unspecified Nephrolithiasis Calculus of kidney Insomnia, unspecified type documented [facility]* Diagnosis Pre-op examination Pelvic pain Dyspareunia in female Dysmenorrhea Menorrhagia with regular cycle documented in this encounter [facility] HealthcareHospital Discharge instructions No data available for this section [facility] InstructionsNot on filedocumented in this encounter [facility] SystemInstructions* Attachments The following attachments cannot be sent through Care Everywhere. * Bipolar disorder ([place]) [facility] SystemInstructionsNot on file documented in this [facility] SystemInstructionsNot on file documented in this [facility] SystemInstructionsNot on file documented in this [facility] SystemInstructionsNot on file documented in this encounterPro[facility] SystemInstructionsNot on file documented in this encounterPro[facility] SystemInstructionsNot on file documented in this encounterProMed[facility] SystemInstructionsNot on file documented in this encounterPro[facility] SystemInstructions* Attachments The following attachments cannot be sent through Care Everywhere. * High blood pressure in adults ([place]) documented in this [facility] SystemInstructionsNot on file documented in this encounterPro[facility] SystemInstructionsNot on file documented in this encounterPro[facility] SystemInstructionsNot on file documented in this encounter[facility] SystemProgress note No data available for this section [facility] Summary Purpose Family History [...] CODE STATUS: Full code PCP: unknown Consult: Health Information Assistant Diagnoses: 1. Heroin addiction 2. Tobacco user [...] days. Patient is to follow-up tomorrow with [facility]'s upper caser and has further follow-up appointments to schedule her outpatient Vivitrol injection. All questions have been answered patient is being (more content not included)... Additional Source Comments INFORMATION SOURCE (unrecogn ized section and content) DATE CREATED AUTHOR 01/27/2020 [facility] DATE CREATED AUTHOR AUTHOR'S ORGANIZ ATION 11/02/2020 [facility] DATE CREATED AUTHOR AUTHOR'S ORGANIZ ATION 10/03/2022 [facility] DATE CREATED AUTHOR AUTHOR'S ORGANIZ ATION [facility] DATE CREATED AUTHOR AUTHOR'S ORGANIZ ATION 10/15/2024 [facility] DATE CREATED AUTHOR AUTHOR'S ORGANIZ ATION 10/15/2024 [facility] DATE CREATED AUTHOR AUTHOR'S ORGANIZ ATION 11/28/2024 [facility] DATE CREATED AUTHOR AUTHOR'S ORGANIZ ATION 03/20/2025 [facility] dical Specialists EPIC Patient Care team informatio n (unrecognized section and content) Radiator Core Tester Relationship Specialty Start Date End Date Rony Cox APRN-DAISY [address] [place] [address] PCP - General Family Medicine 11/03/22 Radiator Core Tester Relationship Specialty Start Date End Date Rony Cox APRN-CNP [address] [place] [address] PCP - General Family Medicine 11/03/22 Radiator Core Tester Relationship Specialty Start Date End Date Rony Cox APRN-CNP [address] [place] [address] PCP - General Family Medicine 11/03/22 Radiator Core Tester Relationship Specialty Start Date End Date Rony Cox [facility] [address] [place] [address] PCP - General Family Medicine 11/03/22 Radiator Core Tester Relationship Specialty Start Date End Date Rony Cox [facility] [address] [place] [address] PCP - General Family Medicine 11/03/22 Radiator Core Tester Relationship Specialty Start Date End Date Rony Cox [facility] [address] [place] [address] PCP - General Family Medicine 11/03/22 Radiator Core Tester Relationship Specialty Start Date End Date Rony Cox [facility] [address] [place] [address] PCP - General Family Medicine 11/03/22 Radiator Core Tester Relationship Specialty Start Date End Date Rony Cox [facility] [address] [place] [address] PCP - General Family Medicine 11/03/22 Radiator Core Tester Relationship Specialty Start Date End Date Rony Cox [facility] [address] [place] [address] PCP - General Family Medicine 11/03/22 Radiator Core Tester Relationship Specialty Start Date End Date Rony Cox [facility] [address] [place] [address] PCP - General Family Medicine 11/03/22 Radiator Core Tester Relationship Specialty Start Date End Date Rony Cox APRN-CNP [address] [place] [address] PCP - General Family Medicine 11/03/22 Radiator Core Tester Relationship Specialty Start Date End Date Rony Cox APRNDAISY [address] LEFT PM 12/29/24 [place] [address] PCP - General Family Medicine 11/03/22 01/21/25 Radiator Core Tester Relationship Specialty Start Date End Date Rony Cox APRNDAISY [address] LEFT PM 12/29/24 [place] [address] PCP - General Family Medicine 11/03/22 01/21/25 [...] BE BASED ON THE PRIMARY CLINICAL RECORDS. [facility] provides no warranty or guarantee of the accuracy or completeness of information in this document.
[2025-04-15 06:22] LABS: Hematocrit 38.1 % (36.0-48.0); Hemoglobin 12.6 g/dL (12.0-16.0); Immature Granulocytes Abs Auto 0.06 10^3/uL (0.00-0.03); Immature Granulocytes Pct Auto 0.5 % (0.0-0.5); Lymphocytes Absolute Auto 3.3 10^3/uL (1.2-3.8); Mean Corpuscular HGB Conc 33.1 g/dL (29.9-35.2); Mean Corpuscular Hemoglobin 29.2 pg (26.7-34.0); Mean Corpuscular Volume 88.2 fL (81.0-99.0); Platelet Count 214 10^3/uL (150-450); Red Blood Count 4.32 10^6/uL (4.20-5.40); White Blood Count 12.2 10^3/uL (4.0-11.0)
[2025-04-15] MEDS: METRONIDAZOLE/SODIUM CHLORIDE 500 MG/100 ML PREMIX 100 MG IV ×2 (07:37→16:01)
[2025-04-15] MEDS: CIPROFLOXACIN IN 5 % DEXTROSE 400 MG/200 ML PREMIX 200 MG IV ×2 (08:03→20:09)
--- NOTE | 2025-04-15 10:22 | P.ON_ITS ---
Brief Operative Note Date of procedure: 04/15/25 Pre-op diagnosis general: menorrhagia, dysmenorrhea, dyspareunia Post-op diagnosis: same as pre-op Procedure: NAME OF PROCEDURE: Total abdominal hysterectomy with cystoscopy. PROCEDURE: Patient was taken back to the Operating Room where she was given general anesthesia without difficulty. She was then prepped and draped in the normal sterile fashion. A Pfannenstiel skin incision was then made 2 cm above the symphysis and pubis and carried down to underlying rectus fascia using a Bovie. The fascia was incised in the midline and extended bilaterally using Hung scissors. Two Zahraa clamps were placed on the superior aspect of the fascia and dissected off the underlying rectus muscle. The same was performed on the inferior aspect as well. The muscle was then in the midline. The peritoneum was identified and entered bluntly. Peritoneum was then extended superiorly and inferiorly with good visualization of the bladder. An O'Czyanxql-S-Uxzdix retractor was placed into the patient's abdomen. The bowel was packed away with moist laparotomy sponges and the bladder blade was inserted. A Leahey tenaculum was placed on the patient's uterus and used for retraction. LigaSure apparatus was then used to come across the uteroovarian ligament on the patient's right side which was then cauterized and transected. This was carried down serially through the broad ligament and across the round ligament. The bladder flap was then created using the Metzenbaum scissors, and the bladder was significantly scarred down to the anterior portion of the uterus. This was sharply and bluntly dissected off the patient's lower uterine segment. However due to risk of injury a supracervical hysterectomy was performed. A curved Vaishnavi was placed across the uterine artery on the right s meagan which was clamped, transected, and suture ligated using #0 Monocryl. The cervical stump was then closed using 0-pds. . This was performed on the contralateral side as well. The uterus was then amputated and the level of the cervical junction using Keisha scissors. . Excellent hemostasis was assured. The patient's abdomen was copiously irrigated using warm saline. Cystoscopy was performed. Bladder was intact. Efflux was noted from both ostia. Cystoscope was removed.After excellent hemostasis was assured, all instruments were removed from the patient's abdomen. The patient's peritoneum was closed using 3-0 Vicryl in a running fashion. The patient's fascia was closed using #0 Vicryl in a running fashion. The patient's skin was closed using 4-0 vicryl on a walt needle. The patient tolerated the procedure well. Sponge, lap, and needle counts were correct times two. Patient taken to the Recovery Room in stable condition Anesthesia: NORMA Surgeon: Aurelio Stanley Corporate Claims Examiner: Herlinda Kaiser Estimated blood loss (mL): 100 Pathology: other (uterus) Condition: stable Disposition: PACU Urinary Catheter Management Urinary Catheter Management Urethral: Cath placed during this visit: no
[2025-04-15] MEDS: HYDROMORPHONE HCL 0.5 MG/0.5 ML SYRINGE IV (10:33)
--- NOTE | 2025-04-15 14:02 | CM.NOTE ---
Chad txt sent to Dr. Stanley to clarify pt's status.
[2025-04-15] MEDS: OXYCODONE HCL/ACETAMINOPHEN 5MG/325MG 2 TAB PO ×2 (14:50→20:09)
[2025-04-15] MEDS: SIMETHICONE 80 MG TAB.CHEW PO (14:51)
--- OUTSIDE RECORDS SUMMARY | 2025-04-15 15:39 | XMS_ITS | CCD ---
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, Rony Aguirre Primary Care [facility] er Unavailable Primary Care Provider Unavailcesilia e AURELIO STANLEY Attending Unavailable JADEN, AURELIO Attending Unavailable AURELIO STANLEY Attending Unavailable AURELIO STANLEY Attending Unavailable Allergies Allergy Classification Reported Allergen(s) Allergy Type Date of Onset Reaction(s) Facility (1 source) Penicillin Drug Allergy [facility] Repository (20 sources) Penicillins; Translations: [PENICILLINS] Propensity to adverse reactions to drug 7 [facility] (14 sources) Penicillins Drug Intolerance 7 Unknown [facility] (9 sources) Penicillins Propensity to adverse reactions to drug 7 [facility] System Medications Current Medications Medication [...] 07-14-2024 Chronic Other aftercare (1 source) 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; Translations: [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] Onset: 07-13-2022 Episodic Other [...] WITH AUTO DIFFon BASOPHILS ABSOLUTE AUTO 0.1 [facility] Basophils/100 WBC (Bld) 0.5 % 0.2 - 2.0 % [facility] Eosinophils/100 WBC (Bld) 4 % 0.9 - 7.0 % [facility] Erythrocyte distribution width (RBC) [Ratio] 14 % 11.0 - 15.0 % [facility] Hematocrit (Bld) [Volume fraction] 38.1 % 36.0 - 48.0 % [facility] Hemoglobin (Bld) [Mass/Vol] 12.9 g/dL 12.0 - 16.0 g/dL [facility] IMMATURE GRANULOCYTES ABS AUTO 0.05 High [facility] Immature granulocytes/100 WBC (Bld) 0.4 % 0.0 - 0.5 % [facility] Interpretation and review of laboratory results Abnormal [facility] LYMPHOCYTES ABSOLUTE AUTO 2.5 [facility] Lymphocytes/100 WBC (Bld) 20.4 % Low 20.5 - 60.0 % [facility] MCH (RBC) [Entitic mass] 29.5 pg 26.7 - 34.0 pg [facility] MCHC (RBC) [Mass/Vol] 33.9 g/dL 29.9 - 35.2 g/dL [facility] MCV (RBC) [Entitic vol] 87 fL 81.0 - 99.0 fL [facility] MONOCYTES ABSOLUTE AUTO 0.7 [facility] Monocytes/100 WBC (Bld) 5.8 % 1.7 - 12.0 % [facility] NEUTROPHILS ABSOLUTE AUTO 8.4 High [facility] Neutrophils/100 WBC (Bld) 68.9 % 43.0 - 75.0 % [facility] Platelet mean volume (Bld) [Entitic vol] 12.1 fL 9.5 - 13.5 fL [facility] TBH EO # 0.5 [facility]H PLT 197 [facility] RBC 4.38 [facility] WBC 12.2 High [facility] ECG 12-LEADon 04-06-[address] [address] Electrocardiograph Report Signed Patient: FARIDEH HSU MR#: [id number] : 1985 Acct:[id number] Age/Sex: 39 / F ADM Date: 04/06/25 Loc: PST Attending Dr: Aurelio Stanley D.O. Ordering Physician: Aurelio Stanley D.O. Date of Service: 04/06/25 Procedure(s): ECG 12 lead Accession Number(s): [id number] cc: [facility] Test Date: 2025-04-06 Pat Name: FARIDEH HSU Department: Room: - Gender: Female Adult Parole Officer: : 1985 Requested By: AURELIO STANLEY Order Number: [id number] Reading MD: RONLAD MOURA M.D. Measurements Intervals [place] Rate: 89 P: 33 UT: 162 QRS: 75 QRSD: 95 T: 48 QT: 357 QTc: 436 Interpretive Statements SINUS RHYTHM Normal ECG Compared to ECG 09/01/2024 10:39:41 No significant changes Electronically Signed On 04-06-2025 18:26:03 EDT by RONALD MOURA M.D. Dictated By: RONALD MOURA Signed By: 04/06/25 1826 DD/ 0716 TD/TT: It Programmer Analyst: [facility] Radiology, Radiologist, - 04/06/[address] [address] Electrocardiograph Report Signed Patient: FARIDEH HSU MR#: [id number] : 1985 Acct:[id number] Age/Sex: 39 / F ADM Date: 04/06/25 Loc: PST Attending Dr: Aurelio Stanley D.O. Ordering Physician: Aurelio Stanley D.O. Date of Service: 04/06/25 Procedure(s): ECG 12 lead Accession Number(s): [id number] cc: [facility] Test Date: 2025-04-06 Pat Name: FARIDEH HSU Department: Room: - Gender: Female Adult Parole Officer: : 1985 Requested By: AURELIO STANLEY Order Number: [id number] Neil MD: RONALD MOURA M.D. Measurements Intervals [place] Rate: 89 P: 33 UT: 162 QRS: 75 QRSD: 95 T: 48 QT: 357 QTc: 436 Interpretive Statements SINUS RHYTHM Normal ECG Compared to ECG 09/01/2024 10:39:41 No significant changes Electronically Signed On 04-06-2025 18:26:03 EDT by RONALD MOURA M.D. Dictated By: RONALD MOURA Signed By: 04/06/251825 DD/ TD/TT: It Programmer Analyst: [facility] Radiology Study observation (narrative) [facility] ECG 12-LEADOrdered By: Actual Experience logist Radiology on 04-06-2025 [facility] Work Phone: IGP,APTIMA HPV,AGE GDLNon AGE GDLN ACOG TESTING Note . [facility] Comment on above: TESTS RESULT FLAG UN ITS REF RANGE LAB Clinician Provided Cytology Information Source.............Cervix;Endocervix No. of containers..01 ThinPrep Vial Age Algo ACOG Myriam... 30-65 01 FLAG LEGEND: L-Low Normal,H-High Normal,LL-Alert Low,HH-Alert High <-Panic Low,>-Panic High,A-Abnormal,AA-Critical Abnormal Performed at: 01 =[address] [address] Kya Lopez MD, HPV APTIMA Negative Negative [facility] Comment on above: This nucleic acid am plification test detects fourteen high- risk HPV types (16,18,31,33,35,39,45,51,52,56,58,59,66,68) without differentiation. Performed at: =[address] [id number] Clinical Informatics Director: Kya Lopez MD, Phone: [phone] Performed at: [address] [id number] Clinical Informatics Director: Kya Lopez MD, Phone: [phone] IGP, APTIMA HPV, RFX 16/18,45 Note . [facility] Comment on above: TESTS RESULT FLAG UN ITS REF RANGE LAB DIAGNOSIS: 02 NEGATIVE FOR INTRAEPITHELIAL LESION OR MALIGNANCY. Specimen adequacy: 02 Satisfactory for evaluation. No endocervical component is identified. Performed by: Jordan Frye, Manager Investigations ([facility]) . 02 Note: Note 02 [...] High,A-Abnormal,AA-Critical Abnormal Performed at: [address] [facility] [address] [place] [address] Kya Lopez MD, BRUSH-SPATULA CERVIX ENDOCERVIX [facility] CBC WITH AUTO DIFFERENTIALon 11-25-2024 CELLAVISION ATYPICAL LYMPHOCYTES RELATIVE PERCENT BY MANUAL COUNT 1 % Normal [facility] Comment on above: Result Comment: This is an appended report. These results have been appended to a previously preliminary verified report. Performed By: #### C BCA #### [facility] ([facility]) [address] [place] [address] VIR CELLAVISION DIFFERENTIAL TYPE CELLAVISION DIFFERENTIAL Normal [facility] Comment on above: Result Comment: This is an appended report. These results have been appended to a previously preliminary verified report. Performed By: #### C BCA #### [facility] ([facility]) [address] [place] [address] VIR CELLAVISION EOSINOPHILS ABSOLUTE COUNT (10*3/UL) BY MANUAL COUNT 0.6 10*3/uL High 0.0-0.4 [facility] Comment on above: Result Comment: This is an appended report. These results have been appended to a previously preliminary verified report. Performed By: #### C BCA #### [facility] ([facility]) [address] [place] [address] VIR CELLAVISION EOSINOPHILS PERCENT BY MANUAL COUNT 5 % Normal [facility] Comment on above: Result Comment: This is an appended report. These results have been appended to a previously preliminary verified report. Performed By: #### C BCA #### [facility] ([facility]) [address] [place] [address] VIR CELLAVISION LYMPHOCYTES ABSOLUTE COUNT (10*3/UL) BY MANUAL COUNT 2.5 10*3/uL Normal 1.0-3.5 [facility] Comment on above: Result Comment: This is an appended report. These results have been appended to a previously preliminary verified report. Performed By: #### C BCA #### [facility] ([facility]) [address] [place] [address] VIR CELLAVISION LYMPHOCYTES RELATIVE PERCENT BY MANUAL COUNT 18 % Normal [facility] Comment on above: Result Comment: This is an appended report. These results have been appended to a previously preliminary verified report. Performed By: #### C BCA #### [facility] ([facility]) [address] [place] [address] VIR CELLAVISION MONOCYTES ABSOLUTE COUNT (10*3/UL) IN BLOOD BY MANUAL COUNT 1.2 10*3/uL High 0.0-0.9 [facility] Comment on above: Result Comment: This is an appended report. These results have been appended to a previously preliminary verified report. Performed By: #### C BCA #### [facility] ([facility]) [address] [place] [address] VIR CELLAVISION MONOCYTES RELATIVE PERCENT BY MANUAL COUNT 9 % Normal [facility] Comment on above: Result Comment: This is an appended report. These results have been appended to a previously preliminary verified report. Performed By: #### C BCA #### [facility] ([facility]) [address] [place] [address] VIR CELLAVISION NEUTROPHILS ABSOLUTE COUNT BY MANUAL COUNT 8.7 10*3/uL High 1.5-6.6 [facility] Comment on above: Result Comment: This is an appended report. These results have been appended to a previously preliminary verified report. Performed By: #### C BCA #### [facility] ([facility]) [address] [place] [address] VIR CELLAVISION NEUTROPHILS RELATIVE PERCENT BY MANUAL COUNT 67 % Normal [facility] Comment on above: Result Comment: This is an appended report. These results have been appended to a previously preliminary verified report. Performed By: #### C BCA #### [facility] ([facility]) [address] [place] [address] VIR CELLAVISION POLYCHROMASIA IN BLOOD BY LIGHT MICROSCOPY 1+ Normal [facility] Comment on above: Result Comment: This is an appended report. These results have been appended to a previously preliminary verified report. Performed By: #### C BCA #### [facility] ([facility]) [address] [place] [address] VIR Erythrocyte distribution width (RBC) [Ratio] 14.9 % Normal 11.5-15 [facility] Comment on above: Performed By: #### C BCA #### [facility] ([facility]) [address] [place] [address] VIR Hematocrit (Bld) [Volume fraction] 39.2 % Normal 35-47 [facility] Comment on above: Performed By: #### C BCA #### [facility] ([facility]) [address] [place] [address] VIR Hemoglobin (Bld) [Mass/Vol] 13.3 g/dL Normal 11.7-15.5 [facility] Comment on above: Performed By: #### C BCA #### [facility] ([facility]) [address] [place] [address] VIR MCH (RBC) [Entitic mass] 30.2 pg Normal 27-34 [facility] Comment on above: Performed By: #### C BCA #### [facility] ([facility]) [address] [place] [address] VIR MCHC (RBC) [Mass/Vol] 34.0 g/dL Normal 32-36 [facility] Comment on above: Performed By: #### C BCA #### [facility] ([facility]) [address] [place] [address] VIR MCV (RBC) [Entitic vol] 89 fL Normal 80-100 [facility] Comment on above: Performed By: #### C BCA #### [facility] ([facility]) [address] [place] [address] VIR Platelet mean volume (Bld) [Entitic vol] 11.2 fL Normal 7-12 [facility] Comment on above: Performed By: #### C BCA #### [facility] ([facility]) [address] [place] [address] VIR Platelets (Bld) [#/Vol] 163 10*3/uL Normal 150-450 [facility] Comment on above: Performed By: #### C BCA #### [facility] ([facility]) [address] [place] [address] VIR RBC COUNT 4.41 X10E12/L Normal 3.8-5.2 [facility] Comment on above: Performed By: #### C BCA #### [facility] ([facility]) [address] [place] [address] VIR WBC (Bld) [#/Vol] 13.0 10*3/uL High 4-11 [facility] Comment on above: Performed By: #### C BCA #### [facility] ([facility]) [address] [place] [address] VIR CBC AND AUTO DIFFon 10-14-19 25 ABSOLUTE BASOPHIL 0.1 X10E9/L Normal 0.0-0.2 [facility] Comment on above: Performed By: #### C BCA, HA1C, CMP, 18659-6, 3016-3 #### [facility] ([id number]) [address] [place] [address] ABSOLUTE NEUTROPHIL 11.1 X10E9/L High 1.5-6.6 [facility] Comment on above: Performed By: #### C BCA, HA1C, CMP, 37880-0, 3015-08 #### [facility] ([id number]) [address] [place] [address] Basophils/100 WBC (Bld) 0.5 % Normal [facility] Comment on above: Performed By: #### C BCA, HA1C, CMP, , 3015-08 #### [facility] ([id number]) [address] [place] [address] Eosinophils (Bld) [#/Vol] 0.6 10*3/uL High 0.0-0.4 [facility] Comment on above: Performed By: #### C BCA, HA1C, CMP, 57374-3, 3015-08 #### [facility] ([id number]) [address] [address] [place] [address] Eosinophils/100 WBC (Bld) 4.2 % Normal [facility] Comment on above: Performed By: #### C BCA, HA1C, CMP, , 3015-08 #### [facility] ([id number]) [address], [address] [place] [address] Erythrocyte distribution width (RBC) [Ratio] 15.2 % High 11.5-15.0 [facility] Comment on above: Performed By: #### C BCA, HA1C, CMP, 82650-2, 3015- #### [facility] ([id number]) [address] [place] [address] Hematocrit (Bld) [Volume fraction] 36.5 % Normal 35-47 [facility] Comment on above: Performed By: #### C BCA, HA1C, CMP, 12924-0, 3015-3 #### [facility] ([id number]) [address] [place] [address] Hemoglobin (Bld) [Mass/Vol] 12.4 g/dL Normal 11.7-15.5 [facility] Comment on above: Performed By: #### C BCA, HA1C, CMP, 39454-5, 3015-3 #### [facility] ([id number]) [address] [place] [address] Lymphocytes (Bld) [#/Vol] 3.1 10*3/uL Normal 1.0-3.5 [facility] Comment on above: Performed By: #### C BCA, HA1C, CMP, 51307-7, 3015-08 #### [facility] ([id number]) [address], [address] [place] [address] Lymphocytes/100 WBC (Bld) 19.9 % Normal [facility] Comment on above: Performed By: #### C BCA, HA1C, CMP, 84450-8, 3015-3 #### [facility] ([id number]) [address] [place] [address] MCH (RBC) [Entitic mass] 29.6 pg Normal 27-34 [facility] Comment on above: Performed By: #### C BCA, HA1C, CMP, 57118-9, 3015-3 #### [facility] ([id number]) [address], [address] [place] [address] MCHC (RBC) [Mass/Vol] 33.9 g/dL Normal 32-36 [facility] Comment on above: Performed By: #### C BCA, HA1C, CMP, 39606-1, 3015-3 #### [facility] ([id number]) [address] [place] [address] MCV (RBC) [Entitic vol] 87 fL Normal 80-100 [facility] Comment on above: Performed By: #### C BCA, HA1C, CMP, 28458-7, 3015- #### [facility] ([id number]) [address] [place] [address] Monocytes (Bld) [#/Vol] 0.5 10*3/uL Normal 0-0.9 [facility] Comment on above: Performed By: #### C BCA, HA1C, CMP, 13294-1, 3015- #### [facility] ([id number]) [address] [place] [address] Monocytes/100 WBC (Bld) 3.3 % Normal [facility] Comment on above: Performed By: #### C BCA, HA1C, CMP, 48601-6, 3015-08 #### [facility] ([id number]) [address] [place] [address] Neutrophils/100 WBC (Bld) 72.1 % Normal [facility] Comment on above: Performed By: #### C BCA, HA1C, CMP, 60757-9, 3015- #### [facility] ([id number]) [address] [place] [address] Platelet mean volume (Bld) [Entitic vol] 11.0 fL Normal 7-12 [facility] Comment on above: Performed By: #### C BCA, HA1C, CMP, 97070-6, 3015- #### [facility] ([id number]) [address], [address] [place] [address] Platelets (Bld) [#/Vol] 189 10*3/uL Normal 150-450 [facility] Comment on above: Performed By: #### C BCA, HA1C, CMP, 81550-3, 3015- #### [facility] ([id number]) [address] [place] [address] RBC COUNT 4.17 X10E12/L Normal 3.80-5.20 [facility] Comment on above: Performed By: #### C BCA, HA1C, CMP, 95668-2, 3015-3 #### [facility] ([id number]) [address] [place] [address] WBC (Bld) [#/Vol] 15.4 10*3/uL High 4.0-11.0 [facility] Comment on above: Performed By: #### C BCA, HA1C, CMP, 61878-3, 3015- #### [facility] ([id number]) [address] [place] [address] COMPREHENSIVE METABOLIC PANE Ruiz 10-13-2024 Albumin [Mass/Vol] 3.7 g/dL Normal 3.2-5.3 [facility] Comment on above: Performed By: #### C BCA, HA1C, CMP, 46764-3, 3015- #### [facility] ([id number]) [address], [address] [place] [address] ALP [Catalytic activity/Vol] 154 U/L High 39-130 [facility] Comment on above: Performed By: #### C BCA, HA1C, CMP, 42603-8, 3015- #### [facility] ([id number]) [address] [place] [address] ALT [Catalytic activity/Vol] 53 U/L High 0-31 [facility] Comment on above: Performed By: #### C BCA, HA1C, CMP, 06262-4, 3015-3 #### [facility] ([id number]) [address] [place] [address] Anion gap [Moles/Vol] 8 mmol/L Normal 5-15 [facility] Comment on above: Performed By: #### C BCA, HA1C, CMP, 93932-6, 3015-3 #### [facility] ([id number]) [address] [place] [address] AST [Catalytic activity/Vol] 29 U/L Normal 0-41 [facility] Comment on above: Performed By: #### C BCA, HA1C, CMP, 89194-1, 3015-3 #### [facility] ([id number]) [address] [place] [address] Bilirubin [Mass/Vol] 0.2 mg/dL Low 0.3-1.2 [facility] Comment on above: Performed By: #### C BCA, HA1C, CMP, 41182-5, 3015-3 #### [facility] ([id number]) [address] [place] [address] Calcium [Mass/Vol] 8.8 mg/dL Normal 8.5-10.5 [facility] Comment on above: Performed By: #### C BCA, HA1C, CMP, 18463-0, 3015-3 #### [facility] ([id number]) [address] [place] [address] Chloride [Moles/Vol] 105 mmol/L Normal 98-109 [facility] Comment on above: Performed By: #### C BCA, HA1C, CMP, 78442-6, 3015-3 #### [facility] ([id number]) [address] [place] [address] CO2 [Moles/Vol] 24 mmol/L Normal 22-32 [facility] Comment on above: Performed By: #### C BCA, HA1C, CMP, 42071-2, 3015-3 #### [facility] ([id number]) [address] [place] [address] Creatinine [Mass/Vol] 0.74 mg/dL Normal 0.40-1.00 [facility] Comment on above: Result Comment: METH OD TRACEABLE TO IDMS STANDARD Performed By: #### C BCA, HA1C, CMP, 72206-4, 3015-3 #### [facility] ([id number]) [address] [address] [place] [address] eGFR (CKD-EPI) NON-RACE DEPENDENT >90 Normal >59 [facility] Comment on above: Result Comment: Reported eGFR is based on the CKD-EPI 2020 equation that does not use a race coefficient. Performed By: #### C BCA, HA1C, CMP, 58128-5, 3015-3 #### [facility] ([id number]) [address] [place] [address] Glucose [Mass/Vol] 99 mg/dL Normal 65-99 [facility] Comment on above: Performed By: #### C BCA, HA1C, CMP, 16713-4, 3015-3 #### [facility] ([id number]) [address] [place] [address] Potassium [Moles/Vol] 3.6 mmol/L Normal 3.5-5.0 [facility] Comment on above: Performed By: #### C BCA, HA1C, CMP, 48960-2, 3015- #### [facility] ([id number]) [address] [address] [place] [address] Protein [Mass/Vol] 6.7 g/dL Normal 6.0-8.0 [facility] Comment on above: Performed By: #### C BCA, HA1C, CMP, 56471-3, 3015-3 #### [facility] ([id number]) [address] [address] [place] [address] Sodium [Moles/Vol] 137 mmol/L Normal 134-146 [facility] Comment on above: Performed By: #### C BCA, HA1C, CMP, 02674-8, 6-3 #### [facility] ([id number]) [address] [place] [address] Urea nitrogen [Mass/Vol] 11 mg/dL Normal 5-23 [facility] Comment on above: Performed By: #### C BCA, HA1C, CMP, 51909-1, 6-3 #### [facility] ([id number]) [address] [facility] [address] [place] [address] HGB A1C (GLYCO-HGB)on 2024 Glucose [Mass/Vol] 111 mg/dL Normal [facility] Comment on above: Performed By: #### C BCA, HA1C, CMP, 60846-3, 6- #### [facility] ([id number]) [address], [address] [address] HbA1c (Bld) [Mass fraction] 5.5 % Normal 4.4-5.6 [facility] Comment on above: Result Comment: NOTE ADA Guidelines Result HgbA1c Normal : less than 5.7 % Prediabetes : 5.7 % to 6.4 % Diabetes : > 6.4 % Use with caution in patients with abnormal hemoglobin variants as the half-life of red blood cells and in vivo glycation rates are affected. Performed By: #### C BCA, HA1C, CMP, 20893-3, 6-3 #### [facility] ([id number]) [address], [address] [place] [address] Lipid 1996 panelon Cholesterol [Mass/Vol] 182 mg/dL Normal 150-200 [facility] Comment on above: Performed By: #### C BCA, HA1C, CMP, 50652-1, 3016-3 #### [facility] ([id number]) [address], [address] [place] [address] Cholesterol in HDL [Mass/Vol] 33 mg/dL Low >39 [facility] Comment on above: Result Comment: HDL <40 mg/dL - High Risk HDL > or = 40mg/dL- Desirable HDL >60 mg/dL - Negative Risk Performed By: #### C BCA, HA1C, CMP, 00996-9, 3016-3 #### [facility] ([id number]) [address], [address] [place] [address] Cholesterol in LDL [Mass/Vol] 90 mg/dL Normal <130 [facility] Comment on above: Result Comment: LDL <100 mg/dL - Desirable LDL >160 mg/dL - High Risk Performed By: #### C BCA, HA1C, CMP, 42397-3, 6-3 #### [facility] ([id number]) [address], [address] [place] [address] Cholesterol in VLDL [Mass/Vol] 59 mg/dL High 0-30 [facility] Comment on above: Performed By: #### C BCA, HA1C, CMP, 12890-8, 6-3 #### [facility] ([id number]) [address], [address] [place] [address] CHOLESTEROL:HDL 5.5 High 1.0-5.0 [facility] Comment on above: Performed By: #### C BCA, HA1C, CMP, 00193-6, 6-3 #### [facility] ([id number]) [address], [address] [place] [address] Triglyceride [Mass/Vol] 294 mg/dL High 27-150 [facility] Comment on above: Performed By: #### C BCA, HA1C, CMP, 35557-0, 6-3 #### [facility] ([id number]) [address] [place] [address] TSH Qnon 10-13-2024 TSH 1.66 uIU/mL Normal 0.49-4.67 [facility] Comment on above: Performed By: #### C BCA, HA1C, CMP, 72894-8, 3016-3 #### [facility] ([id number]) [address] [place] [address] ECG 12-LEADon 09-03-2024 [address] [place] [id number] Electrocardiograph Report Signed Patient: FARIDEH HSU MR#: [id number] : 1985 Acct:[id number] Age/Sex: 39 / F ADM Date: 09/01/24 Loc: [facility] Attending Dr: Aurelio Stanley D.O. Ordering Physician: Aurelio Stanley D.O. Date of Service: 09/01/24 Procedure(s): ECG 12 lead Accession Number(s): [id number] cc: The [facility] Test Date: 2024-09-01 Pat Name: FARIDEH HSU Department: Room: - Gender: Female Adult Parole Officer: : 1985 Requested By: AURELIO STANLEY Order Number: [id number] Reading MD: AFIA WESTBROOK M.D. Measurements Intervals [place] Rate: 90 P: 35 UT: 162 QRS: 76 QRSD: 98 T: 54 QT: 377 QTc: 462 Interpretive Statements SINUS RHYTHM No previous ECG available for comparison Electronically Signed On 09-02-2024 13:04:38 EST by AFIA WESTBROOK M.D. Dictated By: AFIA WESTBROOK M.D. Signed By: 09/03/24 0917 DD/ 1039 TD/TT: It Programmer Analyst: [facility] Radiology, Radiologist, - 09/03/[address] [address] Electrocardiograph Report Signed Patient: FARIDEH HSU MR#: [id number] : 1985 Acct:[id number] Age/Sex: 39 / F ADM Date: 09/01/24 Loc: [facility] Attending Dr: Aurelio Stanley D.O. Ordering Physician: Aurelio Stanley D.O. Date of Service: 09/01/24 Procedure(s): ECG 12 lead Accession Number(s): [id number] cc: [facility] Test Date: 2024-09-01 Pat Name: FARIDEH HSU Department: Room: - Gender: Female Adult Parole Officer: : 1985 Requested By: AURELIO STANLEY Order Number: [id number] Reading MD: AFIA WESTBROOK M.D. Measurements Intervals [place] Rate: 90 P: 35 UT: 162 QRS: 76 QRSD: 98 T: 54 QT: 377 QTc: 462 Interpretive Statements SINUS RHYTHM No previous ECG available for comparison Electronically Signed On 09-02-2024 13:04:38 EST by AFIA WESTBROOK M.D. Dictated By: AFIA WESTBROOK M.D. Signed By: 09/03/24 0917 DD/ 1039 TD/TT: It Programmer Analyst: [facility] ECG 12-LEADOrdered By: Actual Experience logist Radiology on 09-03-2024 [facility] Work Phone: ALL BASIC METABOLIC PANELon 09-01-2024 Anion gap [Moles/Vol] 11.9 mmol/L [facility] Calcium [Mass/Vol] 8.9 mg/dL 8.5 - 10. 1 mg/dL [facility] Chloride [Moles/Vol] 104 mmol/L 98 - 107 mmol/L [facility] CO2 [Moles/Vol] 26.1 mmol/L 21.0 - 32.0 mmol/L [facility] Creatinine [Mass/Vol] 0.82 mg/dL 0.55 - 1.02 mg/dL [facility] GFR/1.73 sq M.predicted CKD-EPI (S/P/Bld) [Vol rate/Area] >60 >=60 mL/min/1.73m 2 [facility] Glucose [Mass/Vol] 88 mg/dL 74 - 106 mg/dL [facility] Potassium [Moles/Vol] 4 mmol/L 3.5 - 5.1 mmol/L [facility] Sodium [Moles/Vol] 138 mmol/L 136 - 145 mmol/L [facility] TBH EGFR-NON AF INDIAN >60 >=60 mL/min/1.73m 2 [facility] Urea nitrogen [Mass/Vol] 16 mg/dL 7.0 - 18.0 mg/dL [facility] Urea nitrogen/Creatinine [Mass ratio] 19.5 mg/mg [facility] ECG 12-LEADon 09-01-2024 Radiology Study observation (narrative) [facility] Vitamin D+Metabolites [Mass/ Vol]on 07-14-2024 VITAMIN D 25 HYD TOT 31.6 ng/mL Normal 30-100 [facility] Comment on above: Result Comment: Vitamin D status 25 [place] Vitamin D Deficiency <20 ng/mL Insufficiency 20-29 ng/mL Sufficiency 30-100 ng/mL Toxicity >100 ng/mL NOTE: A pediatric reference range has not been established by the accounting recruiter of this kit. The [employer] recommends a Vitamin D level of = or >20ng/mL in infants and children. Performed By: #### 3 5365-6 #### [facility] ([id number]) [address] [place] [address], [address] [place] [address] Lab Reportson 02-21-2023 Lab Reports [id number]#1.00CD:127 Normal [facility] RAD - CT Reporton 02-21-2023 RAD - CT Report [id number] #1.00CD:127 Normal [facility] Physician Referralon 023 Physician Referral [id number] #1.00CD:127 Normal [facility] PAP ACOG PANEL 2: 30 to 65on 09-28-2022 . . Normal [facility] Comment on above: Result Comment: Perf ormed at: WB Performed By: #### 4 [id number] #### [facility] [address] [place] [address] Dr. Oneyda Rodriguez Age Gdln ACOG Testing 30-65 Normal [facility] Comment on above: Performed By: #### 4 [id number] #### [facility] [address] [place] [address] Dr. Oneyda Rodriguez DIAGNOSIS: Comment Normal [facility] Comment on above: Result Comment: NEGA TIVE FOR INTRAEPITHELIAL LESION OR MALIGNANCY. REACTIVE CELLULAR CHANGES AND/OR REPAIR ARE PRESENT. Performed at: WB Performed By: #### 4 [id number] #### [facility] [address] [place] [address] Dr. Oneyda Rodriguez Electronically signed by: Comment Normal [facility] Comment on above: Result Comment: Gila Lopez MD, Pathologist Performed at: WB Performed By: #### 4 [id number] #### [facility] [address] [place] [address] Dr. Oneyda Rodriguez HPV Aptima Negative Normal Negative [facility] Comment on above: Result Comment: This nucleic acid amplification test detects fourteen high-risk HPV types (16,18,31,33,35,39,45,51,52,56,58,59,66,68) without differentiation. Performed at: =G Performed By: #### 4 [id number] #### [facility] [address] [place] [address] Dr. Oneyda Rodriguez HPV Genotype Reflex Comment Normal [facility] Comment on above: Result Comment: Crit eria not met, HPV Genotype not performed. Performed at: WB Performed By: #### 4 [id number] #### [facility] [address] [place] [address] Dr. Oneyda Rodriguez Methodology: Comment [facility] Comment on above: Result Comment: This liquid based ThinPrep(R) pap test was screened with the use of an image guided system. Performed at: WB Performed By: #### 4 [id number] #### [facility] [address] [place] [address] Dr. Oneyda Rodriguez Note: Comment Normal [facility] Comment on above: Result Comment: The Pap smear is a screening test designed to aid in the detection of premalignant and malignant conditions of the uterine cervix. It is not a diagnostic procedure and should not be used as the sole means of detecting cervical cancer. Both false-positive and false-negative reports do occur. . Performed at: WB Performed By: #### 4 [id number] #### [facility] [address] [place] [address] Dr. Oneyda Rodriguez Performed by: Comment Normal [facility] Comment on above: Result Comment: Katie Elliott, Supervisory Medical Research Assistant (ASCP) Performed at: WB Performed By: #### 4 [id number] #### [facility] [address] [place] [address] Dr. Oneyda Rodriguez Specimen adequacy: Comment Normal [facility] Comment on above: Result Comment: Sati sfactory for evaluation. Endocervical and/or squamous metaplastic cells (endocervical component) are present. Performed at: WB Performed By: #### 4 [id number] #### [facility] [address] [place] [address] Dr. Oneyda Rodriguez CULTURE URINEon 06-11-2022 CULTURE [...] F Trimethoprim/Sulfame thoxazole <=20 S F Normal [facility] Comment on above: Performed By: #### U RCX #### [facility] [address] [place] [address] Dr. Oneyda Rodriguez CBC AUTO DIFFon 06-08-2022 BASO # 0.1 103/ul Normal 0.0-0.1 [facility] Comment on above: Performed By: #### C BC #### [facility] [address] [place] [address] Dr. Oneyda Rodriguez Basophils/100 WBC (Bld) 0.5 % Normal 0.2-2.0 [facility] Comment on above: Performed By: #### C BC #### [facility] [address] [place] [address] Dr. Oneyda Rodriguez EO # 0.2 103/ul Normal 0.0-0.7 [facility] Comment on above: Performed By: #### C BC #### [facility] [address] [place] [address] Dr. Oneyda Rodriguez Eosinophils/100 WBC (Bld) 1.6 % Normal 0.9-7.0 [facility] Comment on above: Performed By: #### C BC #### [facility] [address] [place] [address] Dr. Oneyda Rodriguez Erythrocyte distribution width (RBC) [Ratio] 13.4 % Normal 11.0-15.0 [facility] Comment on above: Performed By: #### C BC #### [facility] [address] [place] [address] Dr. Oneyda Rodriguez Hematocrit (Bld) [Volume fraction] 35.4 % Critically low 36.0-48.0 [facility] Comment on above: Performed By: #### C BC #### [facility] [address] [place] [address] Dr. Oneyda Rodriguez Hemoglobin (Bld) [Mass/Vol] 12.2 g/dL Normal 12.0-16.0 [facility] Comment on above: Performed By: #### C BC #### [facility] [address] [place] [address] Dr. Oneyda Rodriguez IG # 0.05 10e3/ul Critically high 0.00-0.03 [facility] Comment on above: Performed By: #### C BC #### [facility] [address] [place] [address] Dr. Oneyda Rodriguez IG % 0.4 % Normal 0.0-0.5 [facility] Comment on above: Performed By: #### C BC #### [facility] [address] [place] [address] Dr. Oneyda Rodriguez LYMPH # 2.2 103/ul Normal 1.2-3.8 [facility] Comment on above: Performed By: #### C BC #### [facility] [address] [place] [address] Dr. Oneyda Rodriguez Lymphocytes/100 WBC (Bld) 16.6 % Critically low 20.5-60.0 [facility] Comment on above: Performed By: #### C BC #### [facility] [address] [place] [address] Dr. Oneyda Rodriguez MANUAL DIFF REQ NO Normal [facility] Comment on above: Performed By: #### C BC #### [facility] [address] [place] [address] Dr. Oneyda Rodriguez MCH (RBC) [Entitic mass] 29.7 pg Normal 26.7-34.0 [facility] Comment on above: Performed By: #### C BC #### [facility] [address] [place] [address] Dr. Oneyda Rodriguez MCHC (RBC) [Mass/Vol] 34.5 g/dL Normal 29.9-35.2 [facility] Comment on above: Performed By: #### C BC #### [facility] [address] [place] [address] Dr. Oneyda Rodriguez MCV (RBC) [Entitic vol] 86.1 fL Normal 81.0-99.0 [facility] Comment on above: Performed By: #### C BC #### [facility] [address] [place] [address] Dr. Oneyda Rodriguez MONO # 0.6 103/ul Normal 0.3-0.8 [facility] Comment on above: Performed By: #### C BC #### [facility] [address] [place] [address] Dr. Oneyda Rodriguez Monocytes/100 WBC (Bld) 4.2 % Normal 1.7-12.0 [facility] Comment on above: Performed By: #### C BC #### [facility] [address] [place] [address] Dr. Oneyda Rodriguez NEUT # 10.3 103/ul Critically high 1.4-6.5 [facility] Comment on above: Performed By: #### C BC #### [facility] [address] [place] [address] Dr. Oneyda Rodriguez Neutrophils/100 WBC (Bld) 76.7 % Critically high 43.0-75.0 [facility] Comment on above: Performed By: #### C BC #### [facility] [address] [place] [address] Dr. Oneyda Rodriguez Platelet mean volume (Bld) [Entitic vol] 11.1 fL Normal 9.5-13.5 [facility] Comment on above: Performed By: #### C BC #### [facility] [address] [place] [address] Dr. Oneyda Rodriguez PLT 184 103/ul Normal 150-450 [facility] Comment on above: Performed By: #### C BC #### [facility] [address] [place] [address] Dr. Oneyda Rodriguez RBC 4.11 106/ul Critically low 4.20-5.40 [facility] Comment on above: Performed By: #### C BC #### [facility] [address] [place] [address] Dr. Oneyda Rodriguez WBC 13.4 103/ul Critically high 4.0-11.0 [facility] Comment on above: Performed By: #### C BC #### [facility] [address] [place] [address] Dr. Oneyda Rodriguez ER URINE PROFILEon 2 Bilirubin Ql (U) Negative Normal NEGATIVE [facility] Comment on above: Performed By: #### E BILL TRAORE #### [facility] [address] [place] [address] Dr. Oneyda Rodriguez Clarity (U) CLEAR Normal CLEAR [facility] Comment on above: Performed By: #### E RUR, UMICRO #### [facility] [address] [place] [address] Dr. Oneyda Rodriguez Color (U) LT. YELLOW Normal YELLOW [facility] Comment on above: Performed By: #### Lamonte TRAORE UMICRO #### [facility] [address] [place] [address] Dr. Oneyda FREDERICK A micrscopic examination will be performed if indicated. Normal [facility] Comment on above: Performed By: #### Lamonte TRAORE UMICRO #### [facility] [address] [place] [address] Dr. Oneyda Rodriguez Glucose Ql (U) Negative Normal NEGATIVE [facility] Comment on above: Performed By: #### Lamonte TRAORE UMICRO #### [facility] [address] [place] [address] Dr. Oneyda Rodriguez Hemoglobin Ql (U) SMALL Abnormal NEGATIVE [facility] Comment on above: Performed By: #### Lamonte TRAORE UMICRO #### [facility] [address] [place] [address] Dr. Oneyda Rodriguez Ketones Ql (U) Negative Normal NEGATIVE [facility] Comment on above: Performed By: #### Lamonte TRAORE UMICRO #### [facility] [address] [place] [address] Dr. Oneyda Rodriguez LEUKOCYTES SMALL Abnormal NEGATIVE [facility] Comment on above: Performed By: #### Lamonte TRAORE UMICRO #### [facility] [address] [place] [address] Dr. Oneyda Rodriguez Nitrite Ql (U) Positive Abnormal NEGATIVE [facility] Comment on above: Performed By: #### Lamonte TRAORE UMICRO #### [facility] [address] [place] [address] Dr. Oneyda Rodriguez pH (U) 6.0 [pH] Normal 5-9 [facility] Comment on above: Performed By: #### Lamonte TRAORE UMICRO #### [facility] [address] [place] [address] Dr. Oneyda Rodriguez SPEC GRAVITY 1.025 Normal 1.005-<=1.025 [facility] Comment on above: Performed By: #### HENRI LIRO #### [facility] [address] [place] [address] Dr. Oneyda Rodriguez UA PROTEIN TRACE Normal NEGATIVE/ TRACE [facility] Comment on above: Performed By: #### HENRI LIRO #### [facility] [address] [place] [address] Dr. Oneyda Rodriguez UR MICRO IND INDICATED Normal [facility] Comment on above: Performed By: #### HENRI LIRO #### [facility] [address] [place] [address] Dr. Oneyda Rodriguez Urobilinogen Qn (U) 0.2 {Saul'U}/dL Normal 0.2 - 1. 0 [facility] Comment on above: Performed By: #### BILL LI #### [facility] [address] [place] [address] Dr. Oneyda Rodriguez PREG HCG QUALon 06-08-2022 , QUAL Negative Normal NEGATIVE [facility] Comment on above: Performed By: #### HENRI LIRO #### [facility] [address] [place] [address] Dr. Oneyda Rodriguez PROF 14(COMP METB)on 022 Albumin [Mass/Vol] 3.6 g/dL Normal 3.4-5.0 [facility] Comment on above: Performed By: #### C MP #### [facility] [address] [place] [address] Dr. Oneyda Rodriguez Albumin/Globulin [Mass ratio] 1.1 {ratio} Normal [facility] Comment on above: Performed By: #### C MP #### [facility] [address] [place] [address] Dr. Oneyda Rodriguez ALP [Catalytic activity/Vol] 115 U/L Normal 46-116 [facility] Comment on above: Performed By: #### C MP #### [facility] [address] [place] [address] Dr. Oneyda Rodriguez ALT [Catalytic activity/Vol] 52 U/L Normal 14-59 [facility] Comment on above: Performed By: #### C MP #### [facility] [address] [place] [address] Dr. Oneyda Rodriguez Anion gap [Moles/Vol] 8.2 mmol/L Normal [facility] Comment on above: Performed By: #### C MP #### [facility] [address] [place] [address] Dr. Oneyda Rodriguez AST [Catalytic activity/Vol] 21 U/L Normal 15-37 [facility] Comment on above: Performed By: #### C MP #### [facility] [address] [place] [address] Dr. Oneyda Rodriguez Bilirubin [Mass/Vol] 0.1 mg/dL Critically low 0.2-1.0 [facility] Comment on above: Performed By: #### C MP #### [facility] [address] [place] [address] Dr. Oneyda Rodriguez Calcium [Mass/Vol] 8.4 mg/dL Critically low 8.5-10.1 [facility] Comment on above: Performed By: #### C MP #### [facility] [address] [place] [address] Dr. Oneyda Rodriguez Chloride [Moles/Vol] 105 mmol/L Normal 98-107 [facility] Comment on above: Performed By: #### C MP #### [facility] [address] [place] [address] Dr. Oneyda Rodriguez CO2 [Moles/Vol] 28.3 mmol/L Normal 21.0-32.0 [facility] Comment on above: Performed By: #### C MP #### [facility] [address] [place] [address] Dr. Oneyda Rodriguez Creatinine [Mass/Vol] 0.84 mg/dL Normal 0.55-1.02 [facility] Comment on above: Performed By: #### C MP #### [facility] [address] [place] [address] Dr. Oneyda Rodriguez EGFR-AF INDIAN >60 Normal >=60 [facility] Comment on above: Performed By: #### C MP #### [facility] [address] [place] [address] [address] Oneyda Rodriguez EGFR-NON AF INDIAN >60 Normal >=60 [facility] Comment on above: Performed By: #### C MP #### [facility] [address] [place] [address] [address] Oneyda Rodriguez Globulin (S) [Mass/Vol] 3.3 g/dL Normal [facility] Comment on above: Performed By: #### C MP #### [facility] [address] [address] [address] Oneyda Rodriguez Glucose [Mass/Vol] 85 mg/dL Normal 74-106 [facility] Comment on above: Performed By: #### C MP #### [facility] [address] [place] [address] Dr. Oneyda Rodriguez Potassium [Moles/Vol] 3.5 mmol/L Normal 3.5-5.1 [facility] Comment on above: Performed By: #### C MP #### [facility] [address] [address] [address] Oneyda Rodriguez Protein [Mass/Vol] 6.9 g/dL Normal 6.4-8.2 [facility] Comment on above: Performed By: #### C MP #### [facility] [address] [address] [address] Oneyda Rodriguez Sodium [Moles/Vol] 138 mmol/L Normal 136-145 [facility] Comment on above: Performed By: #### C MP #### [facility] [address] [place] [address] [address] Oneyda Rodriguez Urea nitrogen [Mass/Vol] 14.0 mg/dL Normal 7.0-18.0 [facility] Comment on above: Performed By: #### C MP #### [facility] [address] [address] [address] Oneyda Rodriguez Urea nitrogen/Creatinine [Mass ratio] 16.7 mg/mg Normal [facility] Comment on above: Performed By: #### C MP #### [facility] [address] [place] [address] Dr. Oneyda Rodriguez URINE MICROSCOPIC ONLYon BACTERIA TRACE Abnormal NONE SEEN [facility] Comment on above: Performed By: #### Lamonte TRAORE UMICRO #### [facility] [address] [place] [address] Dr. Oneyda Rodriguez Bacteria identified Cx Nom (U) INDICATED Normal [facility] Comment on above: Performed By: #### Lamonte TRAORE UMICRO #### [facility] [address] [place] [address] Dr. Oneyda Rodriguez CAST NONE SEEN Normal NONE SEEN [facility] Comment on above: Performed By: #### Lamonte TRAORE UMICRO #### [facility] [address] [place] [address] Dr. Oneyda Rodriguez Crystals LM Nom (Urine sed) NONE SEEN Normal NONE SEEN [facility] Comment on above: Performed By: #### Lamonte TRAORE UMICRO #### [facility] [address] [place] [address] Dr. Oneyda Rodriguez Epithelial cells LM Ql (Urine sed) RARE Normal NONE SEEN /RARE [facility] Comment on above: Performed By: #### Lamonte TRAORE UMICRO #### [facility] [address] [place] [address] Dr. Oneyda Rodriguez MUCOUS NONE SEEN Normal NONE SEEN [facility] Comment on above: Performed By: #### Lamonte TRAORE UMICRO #### [facility] [address] [place] [address] Dr. Oneyda Rodirguez RBC NONE SEEN Abnormal 0-2 [facility] Comment on above: Performed By: #### Lamonte TRAORE UMICRO #### [facility] [address] [place] [address] Dr. Oneyda Rodriguez WBC 2-5 Abnormal NONE SEEN [facility] Comment on above: Performed By: #### Lamonte TRAORE UMICRO #### [facility] [address] [place] [address] Dr. Oneyda Rodriguez CBC AUTO DIFFon 05-25-2022 BASO # 0.1 103/ul Normal 0.0-0.1 [facility] Comment on above: Performed By: #### C BC #### [facility] [address] [place] [address] Dr. Oneyda Rodriguez Basophils/100 WBC (Bld) 0.5 % Normal 0.2-2.0 [facility] Comment on above: Performed By: #### C BC #### [facility] [address] [place] [address] Dr. Oneyda Rodriguez EO # 0.3 103/ul Normal 0.0-0.7 [facility] Comment on above: Performed By: #### C BC #### [facility] [address] [place] [address] Dr. Oneyda Rodriguez Eosinophils/100 WBC (Bld) 2.4 % Normal 0.9-7.0 [facility] Comment on above: Performed By: #### C BC #### [facility] [address] [place] [address] Dr. Oneyda Rodriguez Erythrocyte distribution width (RBC) [Ratio] 14.8 % Normal 11.0-15.0 [facility] Comment on above: Performed By: #### C BC #### [facility] [address] [place] [address] Dr. Oneyda Rodriguez Hematocrit (Bld) [Volume fraction] 36.0 % Normal 36.0-48.0 [facility] Comment on above: Performed By: #### C BC #### [facility] [address] [place] [address] Dr. Oneyda Rodriguez Hemoglobin (Bld) [Mass/Vol] 11.8 g/dL Critically low 12.0-16.0 [facility] Comment on above: Performed By: #### C BC #### [facility] [address] [place] [address] Dr. Oneyda Rodriguez IG # 0.05 10e3/ul Critically high 0.00-0.03 [facility] Comment on above: Performed By: #### C BC #### [facility] [address] [place] [address] Dr. Oneyda Rodriguez IG % 0.4 % Normal 0.0-0.5 [facility] Comment on above: Performed By: #### C BC #### [facility] [address] [place] [address] Dr. Oneyda Rodriguez LYMPH # 3.2 103/ul Normal 1.2-3.8 [facility] Comment on above: Performed By: #### C BC #### [facility] [address] [place] [address] Dr. Oneyda Rodriguez Lymphocytes/100 WBC (Bld) 24.3 % Normal 20.5-60.0 [facility] Comment on above: Performed By: #### C BC #### [facility] [address] [place] [address] Dr. Oneyda Rodriguez MANUAL DIFF REQ NO Normal [facility] Comment on above: Performed By: #### C BC #### [facility] [address] [place] [address] Dr. Oneyda Rodriguez MCH (RBC) [Entitic mass] 29.2 pg Normal 26.7-34.0 [facility] Comment on above: Performed By: #### C BC #### [facility] [address] [place] [address] Dr. Oneyda Rodriguez MCHC (RBC) [Mass/Vol] 32.8 g/dL Normal 29.9-35.2 [facility] Comment on above: Performed By: #### C BC #### [facility] [address] [place] [address] Dr. Oneyda Rodriguez MCV (RBC) [Entitic vol] 89.1 fL Normal 81.0-99.0 [facility] Comment on above: Performed By: #### C BC #### [facility] [address] [place] [address] Dr. Oneyda Rodriguez MONO # 0.6 103/ul Normal 0.3-0.8 [facility] Comment on above: Performed By: #### C BC #### [facility] [address] [place] [address] Dr. Oneyda Rodriguez Monocytes/100 WBC (Bld) 4.9 % Normal 1.7-12.0 [facility] Comment on above: Performed By: #### C BC #### [facility] [address] [address] [address] Oneyda Rodriguez NEUT # 8.8 103/ul Critically high 1.4-6.5 [facility] Comment on above: Performed By: #### C BC #### [facility] [address] [address] [address] Oneyda Rodriguez Neutrophils/100 WBC (Bld) 67.5 % Normal 43.0-75.0 [facility] Comment on above: Performed By: #### C BC #### [facility] [address] [address] [address] Oneyda Rodriguez Platelet mean volume (Bld) [Entitic vol] 12.5 fL Normal 9.5-13.5 [facility] Comment on above: Performed By: #### C BC #### [facility] [address] [address] [address] Oneyda Rodriguez PLT 213 103/ul Normal 150-450 [facility] Comment on above: Performed By: #### C BC #### [facility] [address] [address] [address] Oneyda Rodriguez RBC 4.04 106/ul Critically low 4.20-5.40 [facility] Comment on above: Performed By: #### C BC #### [facility] [address] [address] [address] Oneyda Rodriguez WBC 13.1 103/ul Critically high 4.0-11.0 [facility] Comment on above: Performed By: #### C BC #### [facility] [address] [address] [address] Oneyda Rodriguez CRPon 11-23-2021 CRP [Mass/Vol] mg/L Normal <=1.0 [facility] Comment on above: Performed By: #### BILL LI #### [facility] [address] [address] [address] HEAD WO CONon [...] by: SHARON MC Date: 2021-11-23 06:36 Normal [facility] LACTATE/LACTIC ACIDon 2021 Lactate [Moles/Vol] 0.7 mmol/L Normal 0.4-1.9 [facility] Comment on above: Performed By: #### Ketan ACT #### [facility] [address] [place] [address] Dr. Oneyda Rodriguez PROF 14(COMP METB)on 022 Albumin [Mass/Vol] 3.9 g/dL Normal 3.4-5.0 [facility] Comment on above: Performed By: #### BILL LI #### [facility] [address] [address] [address] Oneyda Rodriguez Albumin/Globulin [Mass ratio] 1.1 {ratio} Normal [facility] Comment on above: Performed By: #### BILL LI #### [facility] [address] [place] [address] Dr. Oneyda Rodriguez ALP [Catalytic activity/Vol] 107 U/L Normal 46-116 [facility] Comment on above: Performed By: #### BILL LI #### [facility] [address] [place] [address] Dr. Oneyda Rodriguez ALT [Catalytic activity/Vol] 62 U/L Critically high 14-59 [facility] Comment on above: Performed By: #### BILL LI #### [facility] [address] [address] [address] Oneyda Rodriguez Anion gap [Moles/Vol] 12.2 mmol/L Normal [facility] Comment on above: Performed By: #### Lamonte TRAORE UMICRO #### [facility] [address] [address] [address] Oneyda Rodriguez AST [Catalytic activity/Vol] 26 U/L Normal 15-37 [facility] Comment on above: Performed By: #### Lamonte TRAORE, UMICRO #### [facility] [address] [place] [address] Dr. Oneyda Rodriguez Bilirubin [Mass/Vol] 0.3 mg/dL Normal 0.2-1.0 [facility] Comment on above: Performed By: #### Lamonte TRAORE, UMICRO #### [facility] [address] [place] [address] Dr. Oneyda Rodriguez Calcium [Mass/Vol] 8.8 mg/dL Normal 8.5-10.1 [facility] Comment on above: Performed By: #### Lamonte TRAORE UMICRO #### [facility] [address] [place] [address] Dr. Oneyda Rodriguez Chloride [Moles/Vol] 104 mmol/L Normal 98-107 [facility] Comment on above: Performed By: #### Lamonte TRAORE, UMICRO #### [facility] [address] [place] [address] Dr. Oneyda Rodriguez CO2 [Moles/Vol] 28.9 mmol/L Normal 21.0-32.0 [facility] Comment on above: Performed By: #### Lamonte TRAORE, UMICRO #### [facility] [address] [place] [address] Dr. Oneyda Rodriguez Creatinine [Mass/Vol] 0.73 mg/dL Normal 0.55-1.02 [facility] Comment on above: Performed By: #### Lamonte TRAORE, UMICRO #### [facility] [address] [place] [address] Dr. Oneyda Rodriguez EGFR-AF INDIAN >60 Normal >=60 [facility] Comment on above: Performed By: #### E CHADR, UMICRO #### [facility] [address] [place] [address] Dr. Oneyda Rodriguez EGFR-NON AF INDIAN >60 Normal >=60 [facility] Comment on above: Performed By: #### E CHADR, UMICRO #### [facility] [address] [place] [address] Dr. Oneyda Rodriguez Globulin (S) [Mass/Vol] 3.4 g/dL Normal [facility] Comment on above: Performed By: #### E CHADR, UMICRO #### [facility] [address] [place] [address] Dr. Oneyda Rodriguez Glucose [Mass/Vol] 105 mg/dL Normal 74-106 [facility] Comment on above: Performed By: #### E LEÓN, UMICRO #### [facility] [address] [place] [address] Dr. Oneyda Rodriguez Potassium [Moles/Vol] 3.1 mmol/L Critically low 3.5-5.1 [facility] Comment on above: Performed By: #### Lamonte TRAORE, UMICRO #### [facility] [address] [place] [address] Dr. Oneyda Rodriguez Protein [Mass/Vol] 7.3 g/dL Normal 6.4-8.2 [facility] Comment on above: Performed By: #### E LEÓN, UMICRO #### [facility] [address] [place] [address] Dr. Oneyda Rodriguez Sodium [Moles/Vol] 142 mmol/L Normal 136-145 [facility] Comment on above: Performed By: #### E RUR, UMICRO #### [facility] [address] [place] [address] Dr. Oneyda Rodriguez Urea nitrogen [Mass/Vol] 12.0 mg/dL Normal 7.0-18.0 [facility] Comment on above: Performed By: #### E RUR, UMICRO #### [facility] [address] [place] [address] Dr. Oneyda Rodriguez Urea nitrogen/Creatinine [Mass ratio] 16.4 mg/mg Normal [facility] Comment on above: Performed By: #### BILL LI #### [facility] [address] [address] [address] Oneyda Rodriguez TROPONIN, HIGH SENSITIVITYon 11-23-2021 HSTROP 4.8 pg/mL Normal 4.0-51.3 [facility] Comment on above: Result Comment: CUT- OFF POINTS HAVE BEEN ESTABLISHED BASED ON THE FOURTH UNIVERSAL DEFINITIONS OF MYOCARDIAL INFARCTION. THE UPPER REFERENCE LIMIT (URL) OF TROPONIN, DEFINED THE 99TH PERCENTILE OF cTnI DISTRIBUTION IN A REFERENCE POPULATION, HAS BEEN CONFIRMED THE DECISION THRESHOLD FOR NM DIAGNOSIS. Performed By: #### BILL LI #### [facility] [address] [place] [address] Dr. Oneyda Rodriguez HCV RNA,Quant,PCRon 11-02-19 HCV [...] Report Status FINAL 11/01/2020 Normal [facility] Comment on above: Performed By: #### H CVQ #### [facility] [address] [place] [address] Clinical Informatics Director: Valdo Diaz MD [facility] [address] [place] [address] Clinical Informatics Director: Mateo Mir MD CBCon 10-27-2020 Erythrocyte distribution width (RBC) [Ratio] 14.4 % Normal 11.8-14.4 [facility] Comment on above: Performed By: #### I PF, CBC, CP, HCG #### [address] [place] [id number] Clinical Informatics Director: Mateo Mir MD #### HIVCMB, PHEP #### [address] [id number] Clinical Informatics Director: aVldo Diaz MD Hematocrit (Bld) [Volume fraction] 38.8 % Normal 36.3-47.1 [facility] Comment on above: Performed By: #### I PF, CBC, CP, HCG #### [address] [place] [id number] Clinical Informatics Director: Mateo Mir MD #### HIVCMB, PHEP #### [place] [id number] Clinical Informatics Director: Valdo Diaz MD Hemoglobin (Bld) [Mass/Vol] 12.4 g/dL Normal 11.9-15.1 [facility] Comment on above: Performed By: #### I PF, CBC, CP, HCG #### [address] [place] [id number] Clinical Informatics Director: Mateo Mir MD #### HIVCMB, PHEP #### [place] [address] Clinical Informatics Director: Valdo Diaz MD MCH (RBC) [Entitic mass] 28.0 pg Normal 25.2-33.5 [facility] Comment on above: Performed By: #### I PF, CBC, CP, HCG #### [address] [place] [id number] Clinical Informatics Director: Mateo Mir MD #### HIVCMB, PHEP #### [address] [id number] Clinical Informatics Director: Valdo Diaz MD MCHC (RBC) [Mass/Vol] 32.0 g/dL Normal 28.4-34.8 [facility] Comment on above: Performed By: #### I PF, CBC, CP, HCG #### [facility] [address] [place] [address] Dr. [place] [id number] Clinical Informatics Director: Mateo Mir MD #### HIVCMB, PHEP #### [address] [phone] Clinical Informatics Director: Valdo Diaz MD MCV (RBC) [Entitic vol] 87.6 fL Normal 82.6-102.9 [facility] Comment on above: Performed By: #### I PF, CBC, CP, HCG #### [address] [place] [id number] Clinical Informatics Director: Mateo Mir MD #### HIVCMShavon, PHEP #### [address] [address] Clinical Informatics Director: Valdo Diaz MD NRBC Automated 0.0 per 100 WBC Normal 0.0 [facility] Comment on above: Performed By: #### I PF, CBC, CP, HCG #### [address] [place] [id number] Clinical Informatics Director: Mateo Mir MD #### HIVCMShavon, PHEP #### [address] [address] Clinical Informatics Director: Valdo Diaz MD Platelet Count See Reflexed IPF Result Normal 138-453 [facility] Comment on above: Performed By: #### I PF, CBC, CP, HCG #### [address] [place] [id number] Clinical Informatics Director: Mateo Mir MD #### HIVCMB, PHEP #### [address] [id number] Clinical Informatics Director: Valdo Diaz MD RBC (Bld) [#/Vol] 4.43 10*6/uL Normal 3.95-5.11 [facility] Comment on above: Performed By: #### I PF, CBC, CP, HCG #### [facility] [address] [place], [place] [phone] Clinical Informatics Director: Mateo Mir MD #### HIVCMB, PHEP #### [address] [id number] Clinical Informatics Director: Valdo Diaz MD WBC (Bld) [#/Vol] 8.2 10*3/uL Normal 3.5-11.3 [facility] Comment on above: Performed By: #### I PF, CBC, CP, HCG #### [facility] [address] [place] [address] Dr. [place], [place] [id number] Clinical Informatics Director: Mateo Mir MD #### HIVCMShavon, PHEP #### [address] [phone] Clinical Informatics Director: Valdo Diaz MD MPV NOT REPORTED Normal 8.1-13.5 [facility] Comment on above: Performed By: #### I PF, CBC, CP, HCG #### [facility] [address] [place] [address] [place], [place] [phone] Clinical Informatics Director: Mateo Mir MD #### HIVCMB, PHEP #### [address] [phone] Clinical Informatics Director: Valdo Diaz MD CBCOrdered By: Diego Hernandez on 10-27-2020 Hematocrit (Bld) [Volume fraction] 38.8 % 36.3 - 47.1 % [facility] Work Phone: Hemoglobin.gastroint estinal spec 1 Ql (Stl) 12.4 g/dL 11.9 - 15.1 g/dL [facility] Work Phone: MCH (RBC) [Entitic mass] 28.0 pg 25.2 - 33.5 pg [facility] Phone: MCHC (RBC) [Mass/Vol] 32.0 g/dL 28.4 - 34.8 g/dL [employer] Phone: MCV (RBC) [Entitic vol] 87.6 fL 82.6 - 102.9 fL [employer] Phone: NRBC Automated 0.0 0.0 per 100 WBC [employer] Phone: Platelet distribution width (Bld) [Ratio] 14.4 % 11.8 - 14.4 % [employer] Phone: Platelet mean volume (Bld) [Entitic vol] NOT REPORTED 8.1 - 13.5 fL [employer] Phone: Platelets (Bld) [#/Vol] See Reflexed IPF Result [employer] Phone: RBC (Bld) [#/Vol] 4.43 10*6/uL 3.95 - 5.1 1 m/uL [employer] Phone: WBC (Bld) [#/Vol] 8.2 10*3/uL [employer] Phone: Comp Metabolic Profon 2020 (cont.) Normal [facility] Comment on above: Result Comment: Aver age GFR for 30-39 years old: 107 mL/min/1.73sq m Chronic Kidney Disease: <60 mL/min/1.73sq m Kidney failure: <15 mL/min/1.73sq m eGFR calculated using average adult body mass. Additional eGFR calculator available at: http://www.Recor[employer].Leaf/multiple_crcl_2011.htm Performed By: #### I PF, CBC, CP, HCG #### [facility] [address] [place] [address] Clinical Informatics Director: Mateo Mir MD #### HIVCMB, PHEP #### [address] [address] Clinical Informatics Director: Valdo Diaz MD Albumin [Mass/Vol] 3.6 g/dL Normal 3.5-5.2 [facility] Comment on above: Performed By: #### I PF, CBC, CP, HCG #### [facility] [address] [place] [address] Dr. [place] [phone] Clinical Informatics Director: Mateo Mir MD #### HIVCMB, PHEP #### [address] [address] Clinical Informatics Director: Valdo Diaz MD Albumin/Glob Ratio 1.2 Normal 1.0-2.5 [facility] Comment on above: Performed By: #### I PF, CBC, CP, HCG #### [address] [place] [phone] Clinical Informatics Director: Mateo Mir MD #### HIVCMB, PHEP #### [address] [id number] Clinical Informatics Director: Valdo Diaz MD Alkaline Phos 174 U/L High 35-104 [facility] Comment on above: Performed By: #### I PF, CBC, CP, HCG #### [address] [place] [phone] Clinical Informatics Director: Mateo Mir MD #### HIVCMB, PHEP #### [address] [address] Clinical Informatics Director: Valdo Diaz MD ALT [Catalytic activity/Vol] 65 U/L High 5-33 [facility] Comment on above: Performed By: #### I PF, CBC, CP, HCG #### [address] [place], [place] [id number] Clinical Informatics Director: Mateo Mir MD #### HIVCMB, PHEP #### [facility] [address] [place], [place] [phone] Clinical Informatics Director: Valdo Diaz MD Anion gap [Moles/Vol] 8 mmol/L Low 9-17 [facility] Comment on above: Performed By: #### I PF, CBC, CP, HCG #### [facility] [address] [place], [place] [phone] Clinical Informatics Director: Mateo Mir MD #### HIVCMB, PHEP #### [facility] [address] [place], [place] [phone] Clinical Informatics Director: Valdo Diaz MD AST [Catalytic activity/Vol] 42 U/L High <32 [facility] Comment on above: Performed By: #### I PF, CBC, CP, HCG #### [facility] [address] [place] [address] Dr. [place], [place] [phone] Clinical Informatics Director: Mateo Mir MD #### HIVCMB, PHEP #### [id number] [place], [place] [phone] Clinical Informatics Director: Valdo Diaz MD Bilirubin [Mass/Vol] 0.20 mg/dL Low 0.3-1.2 [facility] Comment on above: Performed By: #### I PF, CBC, CP, HCG #### [facility] [address] [place] [phone] Clinical Informatics Director: Mateo Mir MD #### HIVCMB, PHEP #### [facility] [address] [place], [place] [id number] Clinical Informatics Director: Valdo Diaz MD BUN/CRE Ratio 12 Normal 9-20 [facility] Comment on above: Performed By: #### I PF, CBC, CP, HCG #### [facility] [address] [place], [place] [phone] Clinical Informatics Director: Mateo Mir MD #### HIVCMB, PHEP #### [id number] [place], [place] [phone] Clinical Informatics Director: Valdo Diaz MD Calcium [Mass/Vol] 9.2 mg/dL Normal 8.6-10.4 [facility] Comment on above: Performed By: #### I PF, CBC, CP, HCG #### [facility] [address] [place], [place] [phone] Clinical Informatics Director: Mateo Mir MD #### HIVCMB, PHEP #### [address] [id number] Clinical Informatics Director: Valdo Diaz MD Chloride [Moles/Vol] 107 mmol/L Normal 98-107 [facility] Comment on above: Performed By: #### I PF, CBC, CP, HCG #### [address] [place] [phone] Clinical Informatics Director: Mateo Mir MD #### HIVCMB, PHEP #### [address] [id number] Clinical Informatics Director: Valdo Diaz MD CO2 [Moles/Vol] 26 mmol/L Normal 20-31 [facility] Comment on above: Performed By: #### I PF, CBC, CP, HCG #### [address] [place] [address] Clinical Informatics Director: Mateo Mir MD #### HIVCMB, PHEP #### [address] [phone] Clinical Informatics Director: Valdo Diaz MD Creatinine [Mass/Vol] 0.67 mg/dL Normal 0.50-0.90 [facility] Comment on above: Performed By: #### I PF, CBC, CP, HCG #### [facility] [address] [place] [address] Clinical Informatics Director: Mateo Mir MD #### HIVCMB, PHEP #### [address] [place] [address] Clinical Informatics Director: Valdo Diaz MD GFR, Amer >60 Normal >60 [facility] Comment on above: Performed By: #### I PF, CBC, CP, HCG #### [facility] [address] [place], [place] [phone] Clinical Informatics Director: Mateo Mir MD #### HIVCMB, PHEP #### [id number] [place] [address] Clinical Informatics Director: Valdo Diaz MD GFR,non Amer >60 Normal >60 [facility] Comment on above: Performed By: #### I PF, CBC, CP, HCG #### [facility] [address] [place] [address] Dr. [place], [place] [phone] Clinical Informatics Director: Mateo Mir MD #### HIVCMB, PHEP #### [address] [address] Clinical Informatics Director: Valdo Diaz MD Glucose [Mass/Vol] 99 mg/dL Normal 70-99 [facility] Comment on above: Performed By: #### I PF, CBC, CP, HCG #### [facility] [address] [place] [address] Dr. [place], [place] [phone] Clinical Informatics Director: Mateo Mir MD #### HIVCMB, PHEP #### [address] [phone] Clinical Informatics Director: Valdo Diaz MD Potassium [Moles/Vol] 4.2 mmol/L Normal 3.7-5.3 [facility] Comment on above: Performed By: #### I PF, CBC, CP, HCG #### [facility] [address] [place] [address] Dr. [place], [place] [phone] Clinical Informatics Director: Mateo Mir MD #### HIVCMB, PHEP #### [address] [id number] Clinical Informatics Director: Valdo Diaz MD Protein [Mass/Vol] 6.6 g/dL Normal 6.4-8.3 [facility] Comment on above: Performed By: #### I PF, CBC, CP, HCG #### [address] [place], [place] [id number] Clinical Informatics Director: Mateo Mir MD #### HIVCMB, PHEP #### [address] [id number] Clinical Informatics Director: Valdo Diaz MD Sodium [Moles/Vol] 141 mmol/L Normal 135-144 [facility] Comment on above: Performed By: #### I PF, CBC, CP, HCG #### [address] [place] [address] Clinical Informatics Director: Mateo Mir MD #### HIVCMB, PHEP #### [address] [id number] Clinical Informatics Director: Valdo Diaz MD Staging: Normal [facility] Comment on above: Result Comment: Stag e 1: Some kidney damage normal GFR Stage 2: Mild kidney damage GFR 60-89 Stage 3: Moderate kidney damage GFR 30-59 Stage 4: Severe kidney damage GFR 15-29 Stage 5: Severe kidney damage GFR <15 ESRD - chronic treatment by dialysis or transplant Performed By: #### I PF, CBC, CP, HCG #### [address] [place], [place] [id number] Clinical Informatics Director: Mateo Mir MD #### HIVCMB, PHEP #### [address] [id number] Clinical Informatics Director: Valdo Diaz MD Urea nitrogen [Mass/Vol] 8 mg/dL Normal 6-20 [facility] Comment on above: Performed By: #### I PF, CBC, CP, HCG #### [facility] [address] [place] [address] Clinical Informatics Director: Mateo Mir MD #### HIVCMB, PHEP #### [facility] [address] [place], [place] [id number] Clinical Informatics Director: Valdo Diaz MD Comprehensive Metabolic Pane lOrdered By: Diego Hernandez on 10-27-2020 Albumin [Mass/Vol] 3.6 g/dL 3.5 - 5.2 g/dL [facility] [employer] Work Phone: Albumin/Globulin [Mass ratio] 1.2 {ratio} [facility] Phone: ALP (Bld) [Catalytic activity/Vol] 174 U/L High 35 - 104 U/L [facility] Phone: ALT [Catalytic activity/Vol] 65 U/L High 5 - 33 U/L [facility] Phone: Anion gap [Moles/Vol] 8 mmol/L Low 9 - 17 mmol/L [facility] Phone: AST [Catalytic activity/Vol] 42 U/L High <32 [facility] Phone: Bilirubin [Mass/Vol] 0.20 mg/dL Low 0.3 - 1.2 mg/dL [facility] Phone: Calcium [Mass/Vol] 9.2 mg/dL 8.6 - 10. 4 mg/dL [employer] Phone: Chloride [Moles/Vol] 107 mmol/L 98 - 107 mmol/L [facility] Phone: CO2 [Moles/Vol] 26 mmol/L 20 - 31 mmol/L [facility] Phone: Creatinine [Mass/Vol] 0.67 mg/dL 0.50 - 0.90 mg/dL [facility] Phone: Free PSA/Total PSA [Mass fraction] 6.6 g/dL 6.4 - 8.3 g/dL [employer] Phone: GFR >60 >60 mL/min [employer] Phone: GFR Non- >60 >60 mL/min [employer] Phone: Glucose [Mass/Vol] 99 mg/dL 70 - 99 mg/dL [facility] [employer] Phone: Interpretation and review of laboratory results Abnormal [facility] Phone: Potassium [Moles/Vol] 4.2 mmol/L 3.7 - 5.3 mmol/L [facility] Phone: Sodium [Moles/Vol] 141 mmol/L 135 - 144 mmol/L [facility] Phone: Urea nitrogen (BldV) [Mass/Vol] 8 mg/dL 6 - 20 mg/dL [employer] Phone: Urea nitrogen/Creatinine (Bld) [Mass ratio] 12 [facility] Phone: HCG Qualitative, SerumOrdere d By: Diego Hernandez on 10-27-2020 hCG Qual Negative NEGATIVE [employer] Phone: Comment on above: Specimens with hCG l evels near the threshold of the test (25 mIU/mL) may give a negative or indeterminate result. In such cases, another test should be performed with a new specimen in 48-72 hours. If early is suspected clinically in this setting, correlation with quantitative serum b-hCG level is suggested. [employer] has confirmed the use of plasma for this test. This has not been cleared or approved by the U.S. Food and Drug Administration. The FDA has determined that such clearance is not necessary. HCG Screen, Bloodon 10-28-19 21 HCG Screen, Blood Negative Normal NEG [facility] Comment on above: Result Comment: Spec imens with hCG levels near the threshold of the test (25 mIU/mL) may give a negative or indeterminate result. In such cases, another test should be performed with a new specimen in 48-72 hours. If early is suspected clinically in this setting, correlation with quantitative serum b-hCG level is suggested. [facility] has confirmed the use of plasma for this test. This has not been cleared or approved by the U.S. Food and Drug Administration. The FDA has determined that such clearance is not necessary. Performed By: #### I PF, HCG, CP, CBC #### [address] [place] [address] Clinical Informatics Director: Fidel Hallman MD #### HIVCMB, PHEP #### [facility] [address] [place], [place] [id number] Clinical Informatics Director: Valdo Diaz MD HIV Ag/Abon 10-27-2020 HIV Ag/Ab Non-Reactive Normal NR [facility] Comment on above: Result Comment: No l aboratory evidence of HIV infection. If acute HIV infection is suspected, consider testing for HIV-1 RNA. Performed By: #### I PF, HCG, CP, CBC #### [address] [place] [address] Clinical Informatics Director: Fidel Hallman MD #### HIVCMB, PHEP #### [id number] [place], [place] [id number] Clinical Informatics Director: Valdo Diaz MD HIV ScreenOrdered By: Diego Hernandez on 10-27-2020 HIV Ag/Ab Non-Reactive NONREACTIVE [facility] Work Phone: Comment on above: No laboratory eviden ce of HIV infection. If acute HIV infection is suspected, consider testing for HIV-1 RNA. Hepatitis Acute [facility] 10-27 Hep A Ab,IgM Non-Reactive Normal NR [facility] Comment on above: Performed By: #### I PF, HCG, CP, CBC #### [address] [place] [address] Clinical Informatics Director: Fidel Hallman MD #### HIVCMB, PHEP #### [facility] [address] [place], [place] [phone] Clinical Informatics Director: Valdo Diaz MD Hep B Core Ab,IgM Non-Reactive Normal [facility] Comment on above: Performed By: #### I PF, HCG, CP, CBC #### [facility] [address] [place] [place], [place] [phone] Clinical Informatics Director: Fidel Hallman MD #### HIVCMB, PHEP #### [facility] [address] [place], [place] 1474508 Clinical Informatics Director: Valdo Diaz MD Hep B Surf Ag Non-Reactive Normal [facility] Comment on above: Performed By: #### I PF, HCG, CP, CBC #### [address] [place], [place] 2044683 Clinical Informatics Director: Fidel Hallman MD #### HIVCMB, PHEP #### [facility] [address] [place], [place] 1990008 Clinical Informatics Director: Valdo Diaz MD Hep C Ab Reactive Abnormal [facility] Comment on above: Result Comment: The [...] #### I PF, HCG, CP, CBC #### [address] [place], [place] 9561683 Clinical Informatics Director: Fidel Hallman MD #### HIVCMB, PHEP #### [facility] [address] [place], [place] [id number] Clinical Informatics Director: Valdo Diaz MD Hepatitis Panel, AcuteOrdere d By: Diego Hernandez on 10-27-2020 HAV IgM IA Qn (S) Non-Reactive NONREACTIVE [facility] Work Phone: Hep B Core Ab, IgM Non-Reactive NONREACTIVE [facility] [employer] Work Phone: Hepatitis B Surface Ag Non-Reactive NONREACTIVE [facility] [employer] Work Phone: Hepatitis C Ab Reactive Abnormal NONREACTIVE [facility] Work Phone: Comment on above: The hepatitis [...] Interpretation and review of laboratory results Abnormal [facility] Phone: Immature Platelet FractionOr dered By: Diego Hernandez on 10-27-2020 Interpretation and review of laboratory results Abnormal [facility] Phone: Platelet, Fluorescence 123 Low [facility] Phone: Platelet, Immature Fraction 15.9 % High 1.1 - 10.3 % [facility] Phone: Laboratory - Chemistry and C hemistry - challengeOrdered By: Diego Hernandez on 10-27-2020 GFR/1.73 sq M.predicted MDRD (S/P/Bld) [Vol rate/Area] [employer] Phone: Comment on above: Average GFR for 30-3 9 years old: 107 mL/min/1.73sq m Chronic Kidney Disease: <60 mL/min/1.73sq m Kidney failure: <15 mL/min/1.73sq m eGFR calculated using average adult body mass. Additional eGFR calculator available at: http://www.[employer].Leaf/multiple_crcl_2012.htm Stage 1: Some kidney damage normal GFR Stage 2: Mild kidney damage GFR 60-89 Stage 3: Moderate kidney damage GFR 30-59 Stage 4: Severe kidney damage GFR 15-29 Stage 5: Severe kidney damage GFR <15 ESRD - chronic treatment by dialysis or transplant PLT, Immature Fract.on 10-27 Platelet, Fluoresc. 123 k/uL Low 138-453 [facility] Comment on above: Performed By: #### I PF, CBC, CP, HCG #### [facility] [address] [place] [address] Clinical Informatics Director: Mateo Mir MD #### HIVCMB, PHEP #### [address] [place], [place] 1062908 Clinical Informatics Director: Valdo Diaz MD PLT, Immature Fract. 15.9 % High 1.1-10.3 [facility] Comment on above: Performed By: #### I PF, CBC, CP, HCG #### [facility] [address] [place] [address] Clinical Informatics Director: Mateo Mir MD #### HIVCMB, PHEP #### [address] [place], [place] [id number] Clinical Informatics Director: Valdo Diaz MD HCV RNA,Quant,PCRon 05-13-20 20 [...] Report Status FINAL 05/13/2020 Normal [facility] Comment on above: Performed By: #### I PF, HCG, CP, CBC #### [facility] [address] [place] [address] Clinical Informatics Director: Fidel Hallman MD #### HIVCMB, PHEP #### [address] [id number] Clinical Informatics Director: Valdo Diaz MD CBCon 05-12-2020 Erythrocyte distribution width (RBC) [Ratio] 14.7 % High 11.8-14.4 [facility] Comment on above: Performed By: #### I PF, HCG, CP, CBC #### [address] [place] [address] Clinical Informatics Director: iFdel Hallman MD #### HIVCMB, PHEP #### [place] [address] Clinical Informatics Director: Valdo Diaz MD Hematocrit (Bld) [Volume fraction] 39.7 % Normal 36.3-47.1 [facility] Comment on above: Performed By: #### I PF, HCG, CP, CBC #### [address] [place] [address] Clinical Informatics Director: Fidel Hallman MD #### HIVCMB, PHEP #### [place] [address] Clinical Informatics Director: Valdo Diaz MD Hemoglobin (Bld) [Mass/Vol] 12.2 g/dL Normal 11.9-15.1 [facility] Comment on above: Performed By: #### I PF, HCG, CP, CBC #### [address] [place] [id number] Clinical Informatics Director: Fidel Hallman MD #### HIVCMB, PHEP #### [place] [address] Clinical Informatics Director: Valdo Diaz MD MCH (RBC) [Entitic mass] 27.6 pg Normal 25.2-33.5 [facility] Comment on above: Performed By: #### I PF, HCG, CP, CBC #### [address] [place] [id number] Clinical Informatics Director: Fidel Hallman MD #### HIVCMB, PHEP #### [address] [id number] Clinical Informatics Director: Valdo Diaz MD MCHC (RBC) [Mass/Vol] 30.7 g/dL Normal 28.4-34.8 [facility] Comment on above: Performed By: #### I PF, HCG, CP, CBC #### [address] [place] [id number] Clinical Informatics Director: Fidel Hallman MD #### HIVCMShavon, PHEP #### [address] [id number] Clinical Informatics Director: Valdo Diaz MD MCV (RBC) [Entitic vol] 89.8 fL Normal 82.6-102.9 [facility] Comment on above: Performed By: #### I PF, HCG, CP, CBC #### [address] [place] [id number] Clinical Informatics Director: Fidel Hallman MD #### HIVCMB, PHEP #### [address] [id number] Clinical Informatics Director: Valdo Diaz MD NRBC Automated 0.0 per 100 WBC Normal 0.0 [facility] Comment on above: Performed By: #### I PF, HCG, CP, CBC #### [address] [place] [id number] Clinical Informatics Director: Fidel Hallman MD #### HIVCMB, PHEP #### [address] [id number] Clinical Informatics Director: Valdo Diaz MD Platelet Count See Reflexed IPF Result Normal 138-453 [facility] Comment on above: Performed By: #### I PF, HCG, CP, CBC #### [address] [place], [place] 8705383 Clinical Informatics Director: Fidel Hallman MD #### HIVCMB, PHEP #### [address] [place], [place] 3184408 Clinical Informatics Director: Valdo Diaz MD RBC (Bld) [#/Vol] 4.42 10*6/uL Normal 3.95-5.11 [facility] Comment on above: Performed By: #### I PF, HCG, CP, CBC #### [address] [place], [place] 7092783 Clinical Informatics Director: iFdel Hallman MD #### HIVCMB, PHEP #### [address] [id number] Clinical Informatics Director: Valdo Diaz MD WBC (Bld) [#/Vol] 8.9 10*3/uL Normal 3.5-11.3 [facility] Comment on above: Performed By: #### I PF, HCG, CP, CBC #### [address] [place], [place] 5095983 Clinical Informatics Director: Fidel Hallman MD #### HIVBLUE, PHEP #### [address] [id number] Clinical Informatics Director: Valdo Diaz MD MPV NOT REPORTED Normal 8.1-13.5 [facility] Comment on above: Performed By: #### I PF, HCG, CP, CBC #### [address] [place], [place] 5269483 Clinical Informatics Director: Fidel Hallman MD #### HIVCMB, PHEP #### [address] [id number] Clinical Informatics Director: Valdo Diaz MD Erythrocyte distribution width (RBC) [Ratio] 14.7 % High 11.8 - 14.4 % [place], [place] Hematocrit (Bld) [Volume fraction] 39.7 % 36.3 - 47.1 % [place] Hemoglobin (Bld) [Mass/Vol] 12.2 g/dL 11.9 - 15.1 g/dL [place] Interpretation and review of laboratory results Abnormal [place] MCH (RBC) [Entitic mass] 27.6 pg 25.2 - 33.5 pg [place] MCHC (RBC) [Mass/Vol] 30.7 g/dL 28.4 - 34.8 g/dL [place] MCV (RBC) [Entitic vol] 89.8 fL 82.6 - 102.9 fL [place] Platelet mean volume (Bld) [Entitic vol] NOT REPORTED 8.1 - 13.5 fL [place], [place] Platelets (Bld) [#/Vol] See Reflexed IPF Result [place] RBC (Bld) [#/Vol] 4.42 10*6/uL 3.95 - 5.1 1 m/uL [place] WBC (Bld) [#/Vol] 0.0 10*3/uL 0.0 per 100 WBC M [place] WBC (Bld) [#/Vol] 8.9 10*3/uL [place] Comp Metabolic Profon 2019 (cont.) Normal [facility] Comment on above: Result Comment: Aver age GFR for 30-39 years old: 107 mL/min/1.73sq m Chronic Kidney Disease: <60 mL/min/1.73sq m Kidney failure: <15 mL/min/1.73sq m eGFR calculated using average adult body mass. Additional eGFR calculator available at: http://www.Recor[employer]o.com/multiple_crcl_2011.htm Performed By: #### I PF, HCG, CP, CBC #### [facility] [address] [place] [address] Clinical Informatics Director: Fidel Hallman MD #### HIVCMB, PHEP #### [facility] [employer] [address] [place] [address] Clinical Informatics Director: Valdo Diaz MD Albumin [Mass/Vol] 3.9 g/dL Normal 3.5-5.2 [facility] Comment on above: Performed By: #### I PF, HCG, CP, CBC #### [facility] [address] [place], [place] 8722383 Clinical Informatics Director: Fidel Hallman MD #### HIVCMB, PHEP #### [address] [id number] Clinical Informatics Director: Valdo Diaz MD Albumin/Glob Ratio 1.3 Normal 1.0-2.5 [facility] Comment on above: Performed By: #### I PF, HCG, CP, CBC #### [address] [place], [place] 7466383 Clinical Informatics Director: Fidel Hallman MD #### HIVCMB, PHEP #### [address] [id number] Clinical Informatics Director: Valdo Diaz MD Alkaline Phos 122 U/L High 35-104 [facility] Comment on above: Performed By: #### I PF, HCG, CP, CBC #### [address] [place], [place] 6234583 Clinical Informatics Director: Fidel Hallman MD #### HIVCMB, PHEP #### [address] [address] Clinical Informatics Director: Valdo Diaz MD ALT [Catalytic activity/Vol] 98 U/L High 5-33 [facility] Comment on above: Performed By: #### I PF, HCG, CP, CBC #### [facility] [address] [place] [address] Dr. [place], [place] 3241483 Clinical Informatics Director: Fidel Hallman MD #### HIVCMB, PHEP #### [address] [address] Clinical Informatics Director: Valdo Diaz MD Anion gap [Moles/Vol] 11 mmol/L Normal 9-17 [facility] Comment on above: Performed By: #### I PF, HCG, CP, CBC #### [facility] [address] [place], [place] 3859583 Clinical Informatics Director: Fidel Hallman MD #### HIVCMB, PHEP #### [address] [id number] Clinical Informatics Director: Valdo Diaz MD AST [Catalytic activity/Vol] 51 U/L High <32 [facility] Comment on above: Performed By: #### I PF, HCG, CP, CBC #### [facility] [address] [place] [address] [address]. [place] [phone] Clinical Informatics Director: Fidel Hallman MD #### HIVCMB, PHEP #### [address] [id number] Clinical Informatics Director: Valdo Diaz MD Bilirubin [Mass/Vol] 0.20 mg/dL Low 0.3-1.2 [facility] Comment on above: Performed By: #### I PF, HCG, CP, CBC #### [address] [place], [place] 5232183 Clinical Informatics Director: Fidel Hallman MD #### HIVCMB, PHEP #### [address] [address] Clinical Informatics Director: Valdo Diaz MD BUN/CRE Ratio 14 Normal 9-20 [facility] Comment on above: Performed By: #### I PF, HCG, CP, CBC #### [address] [place] [address] Clinical Informatics Director: Fidel Hallman MD #### HIVCMB, PHEP #### [address] [address] Clinical Informatics Director: Valdo Diaz MD Calcium [Mass/Vol] 9.3 mg/dL Normal 8.6-10.4 [facility] Comment on above: Performed By: #### I PF, HCG, CP, CBC #### [facility] [address] [place], [place] 7770183 Clinical Informatics Director: Fidel Hallman MD #### HIVCMB, PHEP #### [address] [id number] Clinical Informatics Director: Valdo Diaz MD Chloride [Moles/Vol] 109 mmol/L High 98-107 [facility] Comment on above: Performed By: #### I PF, HCG, CP, CBC #### [facility] [address] [place] [address] [address]. [place] [phone] Clinical Informatics Director: Fidel Hallman MD #### HIVCMB, PHEP #### [address] [id number] Clinical Informatics Director: Valdo Diaz MD CO2 [Moles/Vol] 23 mmol/L Normal 20-31 [facility] Comment on above: Performed By: #### I PF, HCG, CP, CBC #### [facility] [address] [place] [address] [address]. [place] [phone] Clinical Informatics Director: Fidel Hallman MD #### HIVCMB, PHEP #### [address] [id number] Clinical Informatics Director: Valdo Diaz MD Creatinine [Mass/Vol] 0.69 mg/dL Normal 0.50-0.90 [facility] Comment on above: Performed By: #### I PF, HCG, CP, CBC #### [facility] [address] [place] [address] [place] [address] Clinical Informatics Director: Fidel Hallman MD #### HIVCMB, PHEP #### [address] [id number] Clinical Informatics Director: Valdo Diaz MD GFR, Amer >60 Normal >60 [facility] Comment on above: Performed By: #### I PF, HCG, CP, CBC #### [facility] [address] [place] [address] Clinical Informatics Director: Fidel Hallman MD #### HIVCMB, PHEP #### [address] [place], [place] 1344208 Clinical Informatics Director: Valdo Diaz MD GFR,non Amer >60 Normal >60 [facility] Comment on above: Performed By: #### I PF, HCG, CP, CBC #### [facility] [address] [place] [address] Clinical Informatics Director: Fidel Hallman MD #### HIVCMB, PHEP #### [address] [id number] Clinical Informatics Director: Valdo Diaz MD Glucose [Mass/Vol] 154 mg/dL High 70-99 [facility] Comment on above: Performed By: #### I PF, HCG, CP, CBC #### [facility] [address] [place] [address] Clinical Informatics Director: Fidel Hallman MD #### HIVCMB, PHEP #### [address] [id number] Clinical Informatics Director: Valdo Diaz MD Potassium [Moles/Vol] 3.9 mmol/L Normal 3.7-5.3 [facility] Comment on above: Performed By: #### I PF, HCG, CP, CBC #### [facility] [address] [place] [address] Clinical Informatics Director: Fidel Hallman MD #### HIVCMB, PHEP #### [address] [address] Clinical Informatics Director: Valdo Diaz MD Protein [Mass/Vol] 7.0 g/dL Normal 6.4-8.3 [facility] Comment on above: Performed By: #### I PF, HCG, CP, CBC #### [address] [place] [address] Clinical Informatics Director: Fidel Hallman MD #### HIVCMB, PHEP #### [facility] [address] [place], [place] 2367808 Clinical Informatics Director: Valdo Diaz MD Sodium [Moles/Vol] 143 mmol/L Normal 135-144 [facility] Comment on above: Performed By: #### I PF, HCG, CP, CBC #### [address] [place] [address] Clinical Informatics Director: Fidel Hallman MD #### HIVCMB, PHEP #### [address] [place], [place] 0365208 Clinical Informatics Director: Valdo Diaz MD Staging: Normal [facility] Comment on above: Result Comment: Stag e 1: Some kidney damage normal GFR Stage 2: Mild kidney damage GFR 60-89 Stage 3: Moderate kidney damage GFR 30-59 Stage 4: Severe kidney damage GFR 15-29 Stage 5: Severe kidney damage GFR <15 ESRD - chronic treatment by dialysis or transplant Performed By: #### I PF, HCG, CP, CBC #### [address] [place] [address] Clinical Informatics Director: Fidel Hallman MD #### HIVCMB, PHEP #### [address] [place], [place] 6896708 Clinical Informatics Director: Valdo Diaz MD Urea nitrogen [Mass/Vol] 10 mg/dL Normal 6-20 [facility] Comment on above: Performed By: #### I PF, HCG, CP, CBC #### [address] [place], [place] 136[address]3 Clinical Informatics Director: Fidel Hallman MD #### HIVCMB, PHEP #### [address] [place] [address] Clinical Informatics Director: Valdo Diaz MD Comprehensive Metabolic Pane ruiz 05-12-2020 Albumin [Mass/Vol] 3.9 g/dL 3.5 - 5.2 g/dL [place], [place] Albumin/Globulin [Mass ratio] 1.3 {ratio} [place] ALP [Catalytic activity/Vol] 122 U/L High 35 - 104 U/L [place] ALT [Catalytic activity/Vol] 98 U/L High 5 - 33 U/L [place] Anion gap [Moles/Vol] 11 mmol/L 9 - 17 mmol/L [place] AST [Catalytic activity/Vol] 51 U/L High <32 [place] Bilirubin Ql (U) 0.20 mg/dL Low 0.3 - 1.2 mg/dL [place] Bun/Cre Ratio 14 [place] Calcium [Mass/Vol] 9.3 mg/dL 8.6 - 10. 4 mg/dL [place] Chloride [Moles/Vol] 109 mmol/L High 98 - 107 mmol/L [place] CO2 [Moles/Vol] 23 mmol/L 20 - 31 mmol/L [place] Creatinine [Mass/Vol] 0.69 mg/dL 0.5 - 0.9 mg/dL [place] GFR >60 >60 mL/min [place] GFR Non- >60 >60 mL/min [place] Glucose [Mass/Vol] 154 mg/dL High 70 - 99 mg/dL [place] Interpretation and review of laboratory results Abnormal [place] Potassium [Moles/Vol] 3.9 mmol/L 3.7 - 5.3 mmol/L [place], [place] Protein [Mass/Vol] 7.0 g/dL 6.4 - 8.3 g/dL [place], [place] Sodium [Moles/Vol] 143 mmol/L 135 - 144 mmol/L [place] Urea nitrogen [Mass/Vol] 10 mg/dL 6 - 20 mg/dL [place] HCG Qualitative, Serumon hCG Qual Negative NEGATIVE [place] Comment on above: Specimens with hCG l evels near the threshold of the test (25 mIU/mL) may give a negative or indeterminate result. In such cases, another test should be performed with a new specimen in 48-72 hours. If early is suspected clinically in this setting, correlation with quantitative serum b-hCG level is suggested. [facility] has confirmed the use of plasma for this test. This has not been cleared or approved by the U.S. Food and Drug Administration. The FDA has determined that such clearance is not necessary. HCG Screen, Blood 05-12-20 20 HCG Screen, Blood Negative Normal NEG [facility] Comment on above: Result Comment: Spec imens with hCG levels near the threshold of the test (25 mIU/mL) may give a negative or indeterminate result. In such cases, another test should be performed with a new specimen in 48-72 hours. If early is suspected clinically in this setting, correlation with quantitative serum b-hCG level is suggested. [facility] has confirmed the use of plasma for this test. This has not been cleared or approved by the U.S. Food and Drug Administration. The FDA has determined that such clearance is not necessary. Performed By: #### I PF, HCG, CP, CBC #### [facility] [address] [place] [address] Clinical Informatics Director: Fidel Hallman MD #### HIVCMB, PHEP #### [id number] [place] [address] Clinical Informatics Director: Valdo Diaz MD HIV Ag/Abon 05-12-2020 HIV Ag/Ab Non-Reactive Normal NR [facility] Comment on above: Result Comment: No l aboratory evidence of HIV infection. If acute HIV infection is suspected, consider testing for HIV-1 RNA. Performed By: #### I PF, HCG, CP, CBC #### [facility] [address] [place] [address] Clinical Informatics Director: Fidel Hallman MD #### HIVCMB, PHEP #### [id number] [place] [address] Clinical Informatics Director: Valdo Diaz MD HIV Screenon 05-12-2020 HIV Ag/Ab NONREACTIVE NONREACTIVE [place], [place] Comment on above: No laboratory eviden ce of HIV infection. If acute HIV infection is suspected, consider testing for HIV-1 RNA. Hepatitis Acute [facility] 05-12 Hep A Ab,IgM Non-Reactive Normal NR [facility] Comment on above: Performed By: #### I PF, HCG, CP, CBC #### [facility] [address] [place] [address] [place], [place] [id number] Clinical Informatics Director: Fidel Hallman MD #### HIVCMB, PHEP #### [address] [address] Clinical Informatics Director: Valdo Diaz MD Hep B Core Ab,IgM Non-Reactive Normal [facility] Comment on above: Performed By: #### I PF, HCG, CP, CBC #### [facility] [address] [place] [address] [place], [place] [id number] Clinical Informatics Director: Fidel Hallman MD #### HIVCMB, PHEP #### [address] [address] Clinical Informatics Director: Valdo Diaz MD Hep B Surf Ag Non-Reactive Normal [facility] Comment on above: Performed By: #### I PF, HCG, CP, CBC #### [facility] [address] [place] [address] [place] [address] Clinical Informatics Director: Fidel Hallman MD #### HIVCMB, PHEP #### [address] [address] Clinical Informatics Director: Valdo Diaz MD Hep C Ab Reactive Abnormal [facility] Comment on above: Result Comment: The [...] #### I PF, HCG, CP, CBC #### [facility] [address] [place] [address] Clinical Informatics Director: Fidel Hallman MD #### HIVCMB, PHEP #### [facility] [address] [place] [address] Clinical Informatics Director: Valdo Diaz MD Hepatitis Panel, Acuteon HAV IgM IA Qn (S) NONREACTIVE NONREACTIVE [place], [place] Hep B Core Ab, IgM NONREACTIVE NONREACTIVE [place], [place] Hepatitis B Surface Ag NONREACTIVE NONREACTIVE [place] Hepatitis C Ab REACTIVE Abnormal NONREACTIVE [place], [place] Comment on above: The hepatitis C [...] Interpretation and review of laboratory results Abnormal [place] Immature Platelet Fractionon 05-12-2020 Interpretation and review of laboratory results Abnormal [place] Platelet, Fluorescence 103 Low [place] Platelet, Immature Fraction 15.6 % High 1.1 - 10.3 % [place] Metabolic Panelon 05-12-2020 GFR/1.73 sq M predicted among non-blacks MDRD (S/P/Bld) [Vol rate/Area] [place] Comment on above: Average GFR for 30-3 9 years old: 107 mL/min/1.73sq m Chronic Kidney Disease: <60 mL/min/1.73sq m Kidney failure: <15 mL/min/1.73sq m eGFR calculated using average adult body mass. Additional eGFR calculator available at: http://[email or web address].Leaf/multiple_crcl_[email or web address].htm Stage 1: Some kidney damage normal GFR Stage 2: Mild kidney damage GFR 60-89 Stage 3: Moderate kidney damage GFR 30-59 Stage 4: Severe kidney damage GFR 15-29 Stage 5: Severe kidney damage GFR <15 ESRD - chronic treatment by dialysis or transplant PLT, Immature Fract.on 05-12 Platelet, Fluoresc. 103 k/uL Low 138-453 [facility] Comment on above: Performed By: #### I PF, HCG, CP, CBC #### [facility] [address] [place], [place] [address] Clinical Informatics Director: Fidel Hallman MD #### HIVCMB, PHEP #### [address] [place], [place] [id number] Clinical Informatics Director: Valdo Diaz MD PLT, Immature Fract. 15.6 % High 1.1-10.3 [facility] Comment on above: Performed By: #### I PF, HCG, CP, CBC #### [facility] [address] [place], [place] [id number] Clinical Informatics Director: Fidel Hallman MD #### HIVCMB, PHEP #### [address] [place], [place] [id number] Clinical Informatics Director: Valdo Diaz MD Ur Opiate Conf-Mayoon 2019 Ur Codeine-Hung 64 ng/mL Normal Cutoff: 25 [facility] Comment on above: Performed By: #### C BC #### [facility] [address] [place] [address] Ur Dihydrocodeine-Hung Negative Normal Cutoff: 25 [facility] Comment on above: Performed By: #### C BC #### [facility] [address] [place] [address] Ur Hydrocodone-Hung Negative Normal Cutoff: 25 [facility] Comment on above: Performed By: #### C BC #### [address] [address] Ur Hydromorphone-Hung Negative Normal Cutoff: 25 [facility] Comment on above: Performed By: #### C BC #### [address] [address] Ur Morphine-Hung 1231 ng/mL Normal Cutoff: 25 [facility] Comment on above: Performed By: #### C BC #### [address] [address] Ur Naloxone-Hung Negative Normal Cutoff: 25 [facility] Comment on above: Performed By: #### C BC #### [address] [place] [address] Ur Norhydrocodone-Hung Negative Normal Cutoff: 25 [facility] Comment on above: Performed By: #### C BC #### [address] [address] Ur Noroxycodone-Hung Negative Normal Cutoff: 25 [facility] Comment on above: Performed By: #### C BC #### [address] [place] [address] Ur Noroxymorphone-Hung Negative Normal Cutoff: 25 [facility] Comment on above: Performed By: #### C BC #### [address] [place] [address] Ur Opiates Interp-Hung Positive Normal [facility] Comment on above: Result Comment: ADDITIONAL INFORMATION This report is intended for use in clinical monitoring and management of patients. It is not intended for use in employment-related testing. This test was developed and its performance characteristics determined by [facility] in a manner consistent with CLIA requirements. This test has not been cleared or approved by the U.S. Food and Drug Administration. Test Performed by: [facility] - [address] [address] Clinical Informatics Director: Santiago Mendoza M.D. Ph.D.; CLIA# [id number] Performed By: #### C BC #### [address] [address] Ur Oxycodone-[place] Negative Normal Cutoff: 25 [facility] Comment on above: Performed By: #### C BC #### [address] [address] Ur Oxymorphone-[place] Negative Normal Cutoff: 25 [facility] Comment on above: Performed By: #### C BC #### [address] [address] HBc Total Abs-[facility] 020 HBc Total Ab-[place] Negative Normal Negative [facility] Comment on above: Result Comment: Test Performed by: [place] [address] Clinical Informatics Director: Santiago Mendoza M.D. Ph.D.; CLIA# [id number] Performed By: #### C BC #### [address] [address] HCV RNA Qnt-[facility] 0 HepC RNA PCR Qnt-[place] 233535 IU/mL Abnormal Undetected [facility] Comment on above: Result Comment: Resu lt in log IU/mL is 5.71. ADDITIONAL INFORMATION The quantification range of this assay is 15 to 100,000,000 IU/mL (1.18 log to 8.00 log IU/mL). Testing was performed using the kendrick HCV test ([employer] with the kendrick [employer] System. Test Performed by: [place] [address] Clinical Informatics Director: Santiago Mendoza M.D. Ph.D.; CLIA# [id number] Performed By: #### C BC #### [address] [address] .eGFRon 12-03-2019 eGFR AA >60 Normal >=60 [facility] Comment on above: Order Comment: Order added by Discern rule Result Comment: Resu lt = 0-14.9 mL/min/1.73 m2 Kidney failure or Dialysis Result = 15-29 mL/min/1.73 m2 Severe decrease in GFR Result = 30-59 mL/min/1.73 m2 Moderate decrease in GFR Result >= 60 mL/min/1.73 m2 Normal or increased GFR Performed By: #### . Automated Diff #### [address] [id number] eGFR Non-AA >60 Normal >=60 [facility] Comment on above: Order Comment: Order added [...] Performed By: #### . Automated Diff #### [address] [facility] 12-03-2019 Albumin [Mass/Vol] 3.4 g/dL Normal 3.2-4.9 [facility] Comment on above: Result Comment: [facility] updated the methodology used for albumin testing on 02/06/18. Albumin measurement was performed using a bromcresol purple dye-binding assay. Performed By: #### . Automated Diff #### [address] [address] Albumin/Globulin [Mass ratio] 1.1 {ratio} Normal 1.1-2.2 [facility] Comment on above: Performed By: #### . Automated Diff #### [address] [address] Alk Phos 120 IU/L High 32-91 [facility] Comment on above: Performed By: #### . Automated Diff #### [address] [address] ALT [Catalytic activity/Vol] 76 U/L High 14-54 [facility] Comment on above: Performed By: #### . Automated Diff #### [address] [address] Anion gap [Moles/Vol] 13 mmol/L Normal 7-17 [facility] Comment on above: Performed By: #### . Automated Diff #### [address] [address] AST [Catalytic activity/Vol] 53 U/L High 15-41 [facility] Comment on above: Performed By: #### . Automated Diff #### [address] [address] Bili Total 0.5 mg/dL Normal 0.3-1.2 [facility] Comment on above: Performed By: #### . Automated Diff #### [address] [address] Calcium [Mass/Vol] 8.7 mg/dL Normal 8.5-10.3 [facility] Comment on above: Performed By: #### . Automated Diff #### [address] [address] Chloride [Moles/Vol] 104 mmol/L Normal 98-110 [facility] Comment on above: Performed By: #### . Automated Diff #### [address] [address] CO2 [Moles/Vol] 26 mmol/L Normal 22-32 [facility] Comment on above: Performed By: #### . Automated Diff #### [address] [address] Creatinine [Mass/Vol] 0.75 mg/dL Normal 0.44-1.03 [facility] Comment on above: Performed By: #### . Automated Diff #### [address] [address] Glucose [Mass/Vol] 100 mg/dL High 70-99 [facility] Comment on above: Performed By: #### . Automated Diff #### [address] [address] Potassium [Moles/Vol] 3.7 mmol/L Normal 3.4-4.8 [facility] Comment on above: Performed By: #### . Automated Diff #### [address] [address] Protein [Mass/Vol] 6.5 g/dL Normal 6.5-8.1 [facility] Comment on above: Performed By: #### . Automated Diff #### [address] [address] Sodium [Moles/Vol] 139 mmol/L Normal 133-142 [facility] Comment on above: Performed By: #### . Automated Diff #### [address] [address] Urea nitrogen [Mass/Vol] 15 mg/dL Normal 8-26 [facility] Comment on above: Performed By: #### . Automated Diff #### [address] [address] Urea nitrogen/Creatinine [Mass ratio] 20.0 mg/mg Normal 10.0-20.0 [facility] Comment on above: Performed By: #### . Automated Diff #### [address] [address] Chlam & GC, DNAon 12-03-2019 Chlamydia, DNA Negative Normal Negative [facility] Comment on above: Result Comment: The [facility]TIMA [...] clinician. Performed By: #### C BC #### [address] [address] Gonorrhea, DNA Negative Normal Negative [facility] Comment on above: Result Comment: The APTIMA [...] clinician. Performed By: #### C BC #### [address] [address] Inpatient Clinical Summaryon 12-03-2019 Inpatient Clinical Summary [address] [address] [place] [address] Clinical Summary Person Information Name: Farideh Hsu Age: 34 Years : 1985 Sex: Female PCP: Marital Status: Single Phone: PCP: Race: White Ethnicity: Not or Language: Danish Visit Id: Visit Reason: Drug withdrawal Speciality: Acuity: Enc Type: Observation Med Service: X Medication Withdrawal Management Arrival: 12/02/2019 03:53:05 Discharge: Dispo Type: Place in Observation Address: [address] [place] [address] Diagnosis: 1:Heroin addiction; 2:Tobacco user; 3:Transaminitis; 4:Hepatitis [...] 12/03/19 12:52:00 EDT, 1 to 2 days, [facility] as scheduled tomorrow. Allergies No Known Allergies [...] range between ( 27.2 and 40.8 ) Riley Auto: 4.2 % -- Normal range between [...] range between ( 36.0 and 46.0 ) Riley Absolute: 0.4 x10 MCH: 28.6 pg -- [...] HOSPITAL STAY New Medications [facility] [facility], [address] [place], [place] [id number], [phone] baclofen (baclofen 10 mg oral tablet) 10 [...] OF YOUR PATIENT?S CURRENT MEDICATIONS [facility], [address] [place], [place] [id number], [phone] baclofen (baclofen 10 mg oral tablet) 10 [...] Referring Physician: Follow up: With: Address: When: [facility] [place] [address] 12/08/2019 12:30:00 Comments: Intake and diagnostic assessment With: Address: When: [facility] [place] [address] 12/04/2019 13:00:00 Comments: Case management appointment Normal [facility] Lipid Panelon 12-03-2019 Cholesterol in LDL [Mass/Vol] 97 mg/dL Normal 0-99 [facility] Comment on above: Result Comment: The equation being used in this calculation is LDL = (Chol - HDL) - (Trig / 5) The optimal value of LDL for individual patients may vary. The patient's history of Artherosclerosis and other cardiac risk factors should be considered. Performed By: #### . Automated Diff #### [address] [address] Cardiac Risk 6.3 Normal [facility] Comment on above: Result Comment: Men Women 1/2 Average 3.43 3.27 Average 4.97 4.44 2x Average 9.55 7.05 3x Average 23.99 11.04 Performed By: #### . Automated Diff #### [address] [address] Cholesterol [Mass/Vol] 151 mg/dL Normal 25-199 [facility] Comment on above: Result Comment: 0 - 17 years of age: Desirable 0-170 Borderline High 170-199 High >=200 18 years and older: Acceptable <200 Borderline High 200-239 High >=240 Performed By: #### . Automated Diff #### [address] [address] Cholesterol in HDL [Mass/Vol] 24.0 mg/dL Low 40.0-60.0 [facility] Comment on above: Performed By: #### . Automated Diff #### [address] [address] Cholesterol in VLDL [Mass/Vol] 30 mg/dL Normal 8-39 [facility] Comment on above: Performed By: #### . Automated Diff #### [address] [address] Triglyceride [Mass/Vol] 152 mg/dL Normal [facility] Comment on above: Result Comment: 0 - 17 years of age: Trig 90 - 129 Borderline High Trig => 130 High 18 years and older: Trig 150 - 199 Borderline High Trig 200 - 499 High Trig =>500 Very High Performed By: #### . Automated Diff #### [address] [address] .eGFRon 12-02-2019 eGFR AA >60 Normal >=60 [facility] Comment on above: Result Comment: Resu lt = 0-14.9 mL/min/1.73 m2 Kidney failure or Dialysis Result = 15-29 mL/min/1.73 m2 Severe decrease in GFR Result = 30-59 mL/min/1.73 m2 Moderate decrease in GFR Result >= 60 mL/min/1.73 m2 Normal or increased GFR Performed By: #### E GFR #### [address] [address] eGFR Non-AA >60 Normal >=60 [facility] Comment on above: Result Comment: Resu lt [...] dosing. Performed By: #### E GFR #### [address] [id number] CBC w/ Diffon 12-02-2019 Erythrocyte distribution width (RBC) [Ratio] 15.1 % High 11.6-14.8 [facility] Comment on above: Performed By: #### C BC #### [address] [address] Hematocrit (Bld) [Volume fraction] 35.2 % Low 36.0-46.0 [facility] Comment on above: Performed By: #### C BC #### [address] [address] Hemoglobin (Bld) [Mass/Vol] 11.9 g/dL Low 12.0-16.0 [facility] Comment on above: Performed By: #### C BC #### [address] [address] MCH (RBC) [Entitic mass] 28.6 pg Normal 27.0-35.0 [facility] Comment on above: Performed By: #### C BC #### [address] [address] MCHC (RBC) [Mass/Vol] 33.9 % Normal 31.0-37.0 [facility] Comment on above: Performed By: #### C BC #### [address] [address] MCV (RBC) [Entitic vol] 84.4 fL Normal 80.0-100.0 [facility] Comment on above: Performed By: #### C BC #### [address] [address] Platelet mean volume (Bld) [Entitic vol] 11.6 fL High 6.7-10.6 [facility] Comment on above: Performed By: #### C BC #### [address] [address] Platelets (Bld) [#/Vol] 94 x10*3/mcL Low 150-350 [facility] Comment on above: Performed By: #### C BC #### [address] [address] RBC (Bld) [#/Vol] 4.17 x10*6/mcL Normal 3.80-5.20 [facility] Comment on above: Performed By: #### C BC #### [address] [address] WBC (Bld) [#/Vol] 10.0 x10*3/mcL Normal 4.5-11.0 [facility] Comment on above: Performed By: #### C BC #### [address] [address] CMPon 12-02-2019 Albumin [Mass/Vol] 4.3 g/dL Normal 3.2-4.9 [facility] Comment on above: Result Comment: [facility] Laboratory updated the methodology used for albumin testing on 02/06/18. Albumin measurement was performed using a bromcresol purple dye-binding assay. Performed By: #### C OMP #### [address] [address] Albumin/Globulin [Mass ratio] 1.3 {ratio} Normal 1.1-2.2 [facility] Comment on above: Performed By: #### C OMP #### [address] [address] Alk Phos 143 IU/L High 32-91 [facility] Comment on above: Performed By: #### C OMP #### [address] [address] ALT [Catalytic activity/Vol] 74 U/L High 14-54 [facility] Comment on above: Performed By: #### C OMP #### [address] [place] [address] Anion gap [Moles/Vol] 15 mmol/L Normal 7-17 [facility] Comment on above: Performed By: #### C OMP #### [address] [place] [address] AST [Catalytic activity/Vol] 47 U/L High 15-41 [facility] Comment on above: Performed By: #### C OMP #### [address] [place] [address] Bili Total 0.4 mg/dL Normal 0.3-1.2 [facility] Comment on above: Performed By: #### C OMP #### [address] [place] [address] Calcium [Mass/Vol] 9.2 mg/dL Normal 8.5-10.3 [facility] Comment on above: Performed By: #### C OMP #### [address] [place] [address] Chloride [Moles/Vol] 99 mmol/L Normal 98-110 [facility] Comment on above: Performed By: #### C OMP #### [address] [place] [address] CO2 [Moles/Vol] 25 mmol/L Normal 22-32 [facility] Comment on above: Performed By: #### C OMP #### [address] [place] [address] Creatinine [Mass/Vol] 0.83 mg/dL Normal 0.44-1.03 [facility] Comment on above: Performed By: #### C OMP #### [address] [place] [address] Glucose [Mass/Vol] 90 mg/dL Normal 70-99 [facility] Comment on above: Performed By: #### C OMP #### [address] [place] [address] Potassium [Moles/Vol] 3.4 mmol/L Normal 3.4-4.8 [facility] Comment on above: Performed By: #### C OMP #### [address] [address] Protein [Mass/Vol] 7.7 g/dL Normal 6.5-8.1 [facility] Comment on above: Performed By: #### C OMP #### [address] [address] Sodium [Moles/Vol] 136 mmol/L Normal 133-142 [facility] Comment on above: Performed By: #### C OMP #### [address] [address] Urea nitrogen [Mass/Vol] 15 mg/dL Normal 8-26 [facility] Comment on above: Performed By: #### C OMP #### [address] [address] Urea nitrogen/Creatinine [Mass ratio] 18.1 mg/mg Normal 10.0-20.0 [facility] Comment on above: Performed By: #### C OMP #### [address] [address] Diff Autoon 12-02-2019 Baso Absolute 0.0 x10*3/mcL Normal 0.0-0.2 [facility] Comment on above: Performed By: #### . Automated Diff #### [address] [address] Basophils/100 WBC (Bld) 0.4 % Normal 0.0-1.5 [facility] Comment on above: Performed By: #### . Automated Diff #### [address] [address] Eos Absolute 0.4 x10*3/mcL Normal 0.0-0.4 [facility] Comment on above: Performed By: #### . Automated Diff #### [address] [address] Eosinophils/100 WBC (Bld) 3.7 % Normal 0.0-5.4 [facility] Comment on above: Performed By: #### . Automated Diff #### [address] [address] Lymphocytes (Bld) [#/Vol] 3.2 x10*3/mcL Normal 1.0-4.8 [facility] Comment on above: Performed By: #### . Automated Diff #### [address] [address] Lymphocytes/100 WBC (Bld) 31.5 % Normal 27.2-40.8 [facility] Comment on above: Performed By: #### . Automated Diff #### [address] [address] Riley Absolute 0.4 x10*3/mcL Normal 0.1-1.1 [facility] Comment on above: Performed By: #### . Automated Diff #### [address] [address] Monocytes/100 WBC (Bld) 4.2 % Normal 3.7-11.9 [facility] Comment on above: Performed By: #### . Automated Diff #### [address] [address] Neutro Absolute 6.0 x10*3/mcL Normal 1.8-7.7 [facility] Comment on above: Performed By: #### . Automated Diff #### [address] [address] Neutro Auto 60.2 % Normal 47.2-70.8 [facility] Comment on above: Performed By: #### . Automated Diff #### [address] [address] ED Clinical Summaryon 2019 ED Clinical Summary [address] [address] ED Clinical Summary Person Information Name: Farideh Hsu [place] Age: 34 Years : 1985 Sex: Female PCP: Marital Status: Single Phone: Race: White Ethnicity: Not or Language: Danish Visit Reason: Drug withdrawal; Drug withdrawal Acuity: 3 Enc Type: Observation Med Service: X Medication Withdrawal Management Arrival: 12/02/2019 03:53:05 Discharge: LOS: 000 04:16 Checkin: 12/02/2019 03:53:05 Checkout: 12/02/2019 08:09:13 Dispo Type: Place in Observation Address: [address] [place] [address] Provider Notes: Diagnosis: 1:Heroin addiction Problems No [...] range between ( 27.2 and 40.8 ) Riley Auto: 4.2 % -- Normal range between [...] range between ( 36.0 and 46.0 ) Riley Absolute: 0.4 x10 MCH: 28.6 pg -- [...] EDT, Medical/Surgical 5th floor Patient Education Information: [facility] Poison Help line: . [facility] Hotline: [place] Tobacco Quit Line: [place], [place]) [address]: [phone] [place], [place]) [address]: [phone] [facility] [address] [place], [place]: [phone] [facility] ED Note-Physicianon 12-02-19 ED Note-Physician seen by health social work professor, admitted to [facility] program Electronically signed by Nakita YEAGER, Benita Maldonadosukhjinder 12/02/19 08:16 EDT Normal [facility] ED Note-Physician Chief Complaint Patient reports she [...] 04:43 60.2 Lymph Auto 12/02/19 04:43 31.5 Riley Auto 12/02/19 04:43 4.2 Eos Auto 12/02/19 04:43 3.7 Basophil Auto 12/02/19 04:43 0.4 Neutro Absolute 12/02/19 04:43 6.0 Lymph Absolute 12/02/19 04:43 3.2 Riley Absolute 12/02/19 04:43 0.4 Eos Absolute 12/02/19 [...] Nestor Mckeon MD 12/02/19 19:07 EDT Normal [facility] Ethanolon 12-02-2019 Ethanol [Mass/Vol] mg/dL Normal <=9 [facility] Comment on above: Result Comment: To c onvert mg/dL to g/dL, divide result by 1,000. Legal limit of intoxication is 80 mg/dL (0.08 g/dL). Performed By: #### A LC #### [facility] [address] [id number] Fentanyl Scn without Confirm , Uron 12-02-2019 Ur Fentanyl Scrn Presumptive Pos Abnormal NEG <1.0 [facility] Comment on above: Result Comment: Urin e sample is presumptive positive for fentanyl. The [employer] Fentanyl Urine Enzyme Immunoassay provides only [...] Performed By: #### . Automated Diff #### [address] [address] Ur Fentanyl Scrn Qnt 3.03 ng/mL High <=0.99 [facility] Comment on above: Performed By: #### . Automated Diff #### [address] [address] HIV1/2 Ab,Ag Scnon 0 HIV-1/2 Ab,Ag 0.21 Normal [facility] Comment on above: Performed By: #### . Automated Diff #### [address] [address] HIV-1/2 Ab,Ag Interp Normal Negative [facility] Comment on above: Result Comment: N egative Negative Performed By: #### . Automated Diff #### [place] [id number] Hep Scrn Chron 12-02-2019 HCV Signal to Cutoff Ratio 36.20 Normal [facility] Comment on above: Performed By: #### . Automated Diff #### [place] [id number] Hep B Surface Antibody Interp Negative Normal [facility] Comment on above: Result Comment: Helga ent is considered to be not immune to infection. Performed By: #### . Automated Diff #### [place] [address] Hep Bs Ab <5.0 Normal [facility] Comment on above: Performed By: #### . Automated Diff #### [place] [id number] Hep Bs Ag Interp Normal Negative [facility] Comment on above: Result Comment: Ne gative Negative Performed By: #### . Automated Diff #### [place] [id number] Hep C IgG Interp Abnormal Negative [facility] Comment on above: Result Comment: Re active This specimen is reactive by the [employer] Hepatitis C Antibody Screen. Anti-HCV IgG detected. Patient is presumed to be infected with HCV, state or associated disease not determined. Confirmation of this screening result is required. Per CBC guidelines, reactive antibody screens reflex to Hepatitis C Virus (HCV) RNA Detection and Quantification by RT-PCR. Reactive Performed By: #### . Automated Diff #### [facility] [address] [place] [address] History and Physicalon 12-01 History and Physical [...] Care Directive: unknown Health Care Power of Store Facility Technician or next of kin: unknown Family Updated: [...] Oral, QID, PRN cloNIDine, 0.1 mg, Oral, [id number] Times cloNIDine, 0.2 mg, Oral, [id number]-[id number] Times cloNIDine, 0.1 mg, Oral, q4hr, PRN [...] by Nhi Posada 12/02/19 11:58 EDT Normal [facility] RPR Screenon 12-02-2019 RPR Ql Non-Reactive Normal Non-Reactive [facility] Comment on above: Performed By: #### . Automated Diff #### [facility] [address] [place] [address] TSHon 12-02-2019 TSH Qn 3.77 mcIU/mL Normal 0.45-5.33 [facility] Comment on above: Result Comment: Refe rence Ranges for individuals from to 18 years of age were obtained from The Kathryn Cortes Handbook (20 ed) published by [facility]. Reference Ranges for Females: Females, 1st Trimester 0.05 ? 3.7 uIU/mL Females, 2nd Trimester 0.31 ? 4.35 uIU/mL Females, 3rd Trimester 0.41 ? 5.18 uIU/mL Performed By: #### T SH #### [address] [address] UDS Compon 12-02-2019 UA pH 5.0 Normal 4.5 - 7.8 [facility] Comment on above: Performed By: #### C [id number] #### [address] [address] UA Spec Grav 1.029 Normal 1.003-1.035 [facility] Comment on above: Performed By: #### C [id number] #### [address] [address] Creatinine [Mass/Vol] 351.3 mg/dL Normal [facility] Comment on above: Performed By: #### C [id number] #### [address] [address] Ur Amph Scrn Negative Normal NEG = <1000 [facility] Comment on above: Performed By: #### C [id number] #### [address] [address] Ur Reyna Scrn Negative Normal NEG = <200 [facility] Comment on above: Performed By: #### C [id number] #### [address] [address] Ur Benzodia Scrn Negative Normal NEG = <200 [facility] Comment on above: Performed By: #### C [id number] #### [address] [address] Ur Cannab Scrn Negative Normal NEG = <50 [facility] Comment on above: Performed By: #### C [id number] #### [address] [address] Ur Cocaine Scrn Negative Normal NEG = <300 [facility] Comment on above: Performed By: #### C [id number] #### [address] [address] Ur Methadone Scn Negative Normal NEG = <300 [facility] Comment on above: Performed By: #### C [id number] #### [address] [address] Ur Opiate Scrn Positive Abnormal NEG = <300 [facility] Comment on above: Result Comment: This unconfirmed positive screening result is to be used for medical treatment purposes only. Unconfirmed screening results must not be used for non-medical purposes. (e.g. employment testing, legal testing). Performed By: #### C [id number] #### [address] [address] Ur Oxy Screen Negative Normal NEG = <100 [facility] Comment on above: Performed By: #### C [id number] #### [address] [address] Ur Oxy Scrn Qnt 24 ng/mL Normal <=99 [facility] Comment on above: Performed By: #### C [id number] #### [address] [address] Ur PCP Scrn Negative Normal NEG = <25 [facility] Comment on above: Performed By: #### C [id number] #### [address] [address] UDS Comp/Con 12-02-2019 Creatinine [Mass/Vol] 45.1 mg/dL Normal [facility] Comment on above: Performed By: #### . Automated Diff #### [address] [address] Ur Amph Scrn w/Conf Negative Normal NEG = <1000 [facility] Comment on above: Performed By: #### . Automated Diff #### [address] [address] Ur Reyna Scrn w/Conf Negative Normal NEG = <200 [facility] Comment on above: Performed By: #### . Automated Diff #### [address] [address] Ur Benzodia Scrn w/Conf Negative Normal NEG = <200 [facility] Comment on above: Performed By: #### . Automated Diff #### [address] [address] Ur Cannab Scrn w/Conf Negative Normal NEG = <50 [facility] Comment on above: Performed By: #### . Automated Diff #### [address] [address] Ur Cocaine Scrn w/Conf Negative Normal NEG = <300 [facility] Comment on above: Performed By: #### . Automated Diff #### [address] [address] Ur Methadone Scrn w/Conf Negative Normal NEG = <300 [facility] Comment on above: Performed By: #### . Automated Diff #### [address] [address] Ur Opiate Scrn w/Conf Positive Abnormal NEG = <300 [facility] Comment on above: Result Comment: This unconfirmed positive screening result is to be used for medical treatment purposes only. Confirmation testing will be performed using an alternate method. Performed By: #### . Automated Diff #### [address] [address] Ur Oxy Screen w/Conf Negative Normal NEG = <100 [facility] Comment on above: Performed By: #### . Automated Diff #### [address] [address] Ur Oxy Scrn Qnt w/Confirm 2 ng/mL Normal <=99 [facility] Comment on above: Performed By: #### . Automated Diff #### [address] [address] Ur PCP Scrn w/Conf Negative Normal NEG = <25 [facility] Comment on above: Performed By: #### . Automated Diff #### [address] [address] UA pH 6.0 Normal 4.5 - 7.8 [facility] Comment on above: Performed By: #### . Automated Diff #### [facility] [address] [place] [address] UA Spec Grav 1.004 Normal 1.003-1.035 [facility] Comment on above: Performed By: #### . Automated Diff #### [facility] [address] [place] [address] Vital Signs Date Time Vital Sign Value Performing Clinician Facility 03-19-2025 09:20-0400 Body mass index (BMI) [Ratio] 42.99 kg/m2 Aurelio Jaden DO Work Phone: [facility] 03-19-2025 09:20-0400 Body weight 103.19 kg Aurelio Jaden DO Work Phone: [facility] 03-19-2025 09:20-0400 Diastolic blood pressure 86 mm[Hg] Aurelio Jaden DO Work Phone: [facility] 03-19-2025 09:20-0400 Systolic blood pressure 120 mm[Hg] Aurelio Jaden DO Work Phone: [facility] 12-08-2024 13:45-0400 Body mass index (BMI) [Ratio] 43.42 kg/m2 Aurelio Jaden DO Work Phone: [facility] 12-08-2024 13:45-0400 Body weight 104.24 kg Aurelio Jaden DO Work Phone: [facility] 12-08-2024 13:45-0400 Diastolic blood pressure 80 mm[Hg] Aurelio Jaden DO Work Phone: [facility] 12-08-2024 13:45-0400 Systolic blood pressure 126 mm[Hg] Aurelio Jaden DO Work Phone: [facility] 10-13-2024 15:16-0400 Body height 154.9 cm Rony Cox [employer] Work Phone: [facility] 10-13-2024 15:16-0400 Body mass index (BMI) [Ratio] 42.8 kg/m2 Rony Cox [employer] MANAGER[employer] Work Phone: [facility] [employer] [facility] 10-13-2024 15:16-0400 Body temperature 99.3 [degF] Rony Cox APRN-SHOT MAN Work Phone: [facility] [employer] [facility] 10-13-2024 15:16-0400 Body weight 102.69 kg Rony Cox APRN-[employer] Work Phone: [facility] [employer] [facility] 10-13-2024 15:16-0400 Diastolic blood pressure 78 mm[Hg] Rony Cox [employer] MA[employer]GER[employer] Work Phone: [facility] [employer] [facility] 10-13-2024 15:16-0400 Heart rate 100 /min Rony Cox APRN-SH[employer] Work Phone: [facility] 10-13-2024 15:16-0400 Respiratory rate 16 /min Rony Cox APRN[employer] Work Phone: [facility] 10-13-2024 15:16-0400 SaO2% (BldA) [Mass fraction] 98 % Rony Cox APRN-[employer] Work Phone: [facility] [employer] [facility] 10-13-2024 15:16-0400 Systolic blood pressure 128 mm[Hg] Rony Cox APRN-SH[employer] Work Phone: [facility] 09-22-2024 14:16-0400 Body mass index (BMI) [Ratio] 41.46 kg/m2 Aurelio Jaden DO Work Phone: [facility] 09-22-2024 14:16-0400 Body weight 99.52 kg Aurelio Jaden DO Work Phone: [facility] 09-22-2024 14:16-0400 Diastolic blood pressure 80 mm[Hg] Aurelio Jaden DO Work Phone: [facility] 09-22-2024 14:16-0400 Systolic blood pressure 130 mm[Hg] Aurelio Jaden DO Work Phone: [facility] 09-11-2024 10:49-0400 Body temperature 97.39 [degF] Kalin Aguirre G[employer] MANAGER[employer] Work Phone: [facility] 09-11-2024 10:49-0400 Diastolic blood pressure 90 mm[Hg] Kalin Aguirre [employer] MANAGER[employer] Work Phone: [facility] 09-11-2024 10:49-0400 Heart rate 122 /min Kalin Aguirre [employer] MANAGER[employer] Work Phone: [facility] 09-11-2024 10:49-0400 SaO2% (BldA) [Mass fraction] 97 % Kalin Aguirre [employer] MANAGER[employer] Work Phone: [facility] 09-11-2024 10:49-0400 Systolic blood pressure 140 mm[Hg] Kalin Aguirre G[employer]OP MANAGER[employer] Work Phone: [facility] 09-08-2024 14:24-0400 Body height 154.9 cm Rony Cox [employer] MANAGER[employer] Work Phone: [facility] 09-08-2024 14:24-0400 Body mass index (BMI) [Ratio] 41.46 kg/m2 Rony Cox [employer] MA[employer]GER[employer] Work Phone: [facility] 09-08-2024 14:24-0400 Body temperature 98.6 [degF] Rony Cox [employer] MANAGER[employer] Work Phone: [facility] 09-08-2024 14:24-0400 Body weight 99.52 kg Rony Cox [employer] MA[employer]GER[employer] Work Phone: [facility] 09-08-2024 14:24-0400 Diastolic blood pressure 98 mm[Hg] Rony Cox [employer] MANAGER[employer] Work Phone: [facility] 09-08-2024 14:24-0400 Heart rate 106 /min Rony Cox [employer] Work Phone: [facility] 09-08-2024 14:24-0400 Respiratory rate 18 /min Rony Cox APRN[employer] Work Phone: [facility] 09-08-2024 14:24-0400 SaO2% (BldA) [Mass fraction] 99 % Rony Cox APRN[employer] Work Phone: [facility] 09-08-2024 14:24-0400 Systolic blood pressure 150 mm[Hg] Rony Cox APRN-SH[employer] MAN Work Phone: [facility] 08-19-2024 09:49-0500 Body mass index (BMI) [Ratio] 41.19 kg/m2 Aurelio Jaden Work Phone: [facility] 08-19-2024 09:49-0500 Body weight 98.88 kg Aurelio Jaden DO Work Phone: [facility] 08-19-2024 09:49-0500 Diastolic blood pressure 100 mm[Hg] Aurelio Jaden DO Work Phone: [facility] 08-19-2024 09:49-0500 Systolic blood pressure 144 mm[Hg] Aurelio Jaden DO Work Phone: [facility] 07-14-2024 13:03-0500 Body height 154.9 cm Rony Cox APRN-DAISY Work Phone: [facility] 07-14-2024 13:03-0500 Body mass index (BMI) [Ratio] 39.53 kg/m2 Rony Cox APRN[employer] Work Phone: [facility] 07-14-2024 13:03-0500 Body temperature 99 [degF] Rony Cox APRN-SH[employer] Work Phone: [facility] 07-14-2024 13:03-0500 Body weight 94.89 kg Rony Cox APRN-SH[employer] Work Phone: [facility] 07-14-2024 13:03-0500 Diastolic blood pressure 80 mm[Hg] Rony Cox APRN[employer]SH[employer] [facility] 07-14-2024 13:03-0500 Heart rate 100 /min Rony Cox APRN[employer]SH[employer] [facility] 07-14-2024 13:03-0500 Respiratory rate 18 /min Rony Cox [employer] MANAGER[employer] [facility] 07-14-2024 13:03-0500 SaO2% (BldA) [Mass fraction] 99 % Rony Cox APRN-SHOT MAN Work Phone: [facility] [employer] [facility] 07-14-2024 13:03-0500 Systolic blood pressure 120 mm[Hg] Rony Cox APRN-SHOT MAN Work Phone: [facility] Encounters Encounter Date Encounter Type Care Provider [...] examination done Aurelio Jaden DO Work Phone: [facility] Start: 03-19-2025 End: 03-19-2025 ambulatory AURELIO JADEN Not Available Start: 01-29-2025 End: 01-30-2025 Refill Ronylamonte Cox [employer] MANAGER[employer] Work Phone: [facility] Comment on above: Insomnia, unspecifie d type Start: 01-20-2025 End: 01-22-2025 Refill Rony Cox [employer] MANAGER[employer] Work Phone: [facility] Comment on above: Nephrolithiasis; Bipolar affective disorder, currently depressed, mild ([facility]); Lumbar back pain with radiculopathy affecting left lower extremity Start: 12-08-2024 End: 12-08-2024 Bamboo flowsheet Aurelio Jaden DO Work Phone: [facility] Start: 12-08-2024 End: 12-11-2024 Bamboo flowsheet Aurelio Jaden DO Work Phone: [facility] Start: 12-08-2024 End: 12-11-2024 Clinisync Result Encounter Aurelio Jaden DO Work Phone: [facility] External Department Unsolicited Start: 12-08-2024 End: 12-08-2024 Patient encounter procedure Aurelio Jaden DO Work Phone: [facility] Work Phone: Start: 12-08-2024 End: 12-08-2024 Periodic preventive med est patient 18-39 yrs Aurelio Jaden DO Work Phone: [facility] Comment on above: Well woman exam with routine gynecological exam; Pelvic pain in female; Menorrhagia with regular cycle Start: 12-08-2024 End: 12-08-2024 ambulatory AURELIO JADEN Not Available Start: 11-28-2024 End: 12-01-2024 Refill Rony Cox [employer] MANAGER[employer] Work Phone: [facility] Comment on above: Bipolar affective di sorder, currently depressed, mild ([facility]) Start: 11-25-2024 ambulatory RONY COX [facility] Start: 11-19-2024 End: 11-19-2024 Orders Only Rony Cox G[employer] MANAGER[employer] Work Phone: [facility] Comment on above: Leukocytosis, unspec ified type (Primary Dx) Start: 11-18-2024 End: 11-18-2024 Orders Only Rony Cox [employer] MANAGER[employer] [facility] Start: 11-05-2024 End: 11-06-2024 Refill Rony Cox [employer] MANAGER[employer] Work Phone: [facility] Comment on above: Migraine without aur a and without status migrainosus, not intractable Start: 10-13-2024 End: 10-13-2024 ambulatory [facility] Start: 10-13-2024 Encounter for genera l adult medical examination without abnormal findings [facility] Start: 10-13-2024 End: 10-13-2024 Patient encounter procedure Rony Cox [employer] MANAGER[employer] Work Phone: [facility] Start: 10-13-2024 End: 10-13-2024 Periodic preventive med est patient 18-39 yrs Rony Grayillo [employer] MANAGER[employer] Work Phone: [facility] Comment on above: Annual physical exam (Primary Dx); Insomnia, unspecified type; Blood tests for routine general physical examination Start: 10-13-2024 End: 10-13-2024 Physical examination Rony Cox G[employer] MANAGER[employer] Work Phone: [facility] Start: 10-13-2024 End: 10-13-2024 ambulatory [facility] Start: 10-13-2024 Encounter for genera l adult medical examination without abnormal findings [facility] Start: 10-11-2024 End: 10-13-2024 Refill Rony Carla GrayCox [employer] MANAGER[employer] Work Phone: [facility] [...] 09-11-2024 End: 09-11-2024 Orders Only Rony Cox [employer] MA[employer]GER[employer] Work Phone: [facility] Start: 09-09-2024 End: 09-11-2024 Telephone encounter Jumana Natasha [facility] Start: 09-08-2024 End: 09-08-2024 Office outpatient visit 15 minutes Rony Cox [employer] MANAGER[employer] Work Phone: [facility] Comment on above: Benign essential HTN (Primary Dx) Start: 09-08-2024 End: 09-08-2024 ambulatory RONY COX [facility] Start: 09-07-2024 End: 09-08-2024 Refill Rony Cox [employer] MANAGER[employer] Work Phone: [facility] [...] examination done Aurelio Jaden DO Work Phone: [facility] Start: 08-11-2024 End: 08-11-2024 Refill Rony Cox [employer] MANAGER[employer] Work Phone: [facility] Comment on above: Lumbar back pain wit h radiculopathy affecting left lower extremity Start: 07-15-2024 End: 07-15-2024 Orders Only Rony Cox G[employer] MANAGER[employer] Work Phone: [facility] Comment on above: Vitamin D deficiency (Primary Dx) Start: 07-14-2024 End: 07-14-2024 ambulatory RONY COX [facility] Start: 07-14-2024 End: 07-14-2024 Office outpatient visit 25 minutes Rony Cox [employer] MANAGER[employer] Work Phone: [facility] Comment on above: Vitamin D deficiency (Primary Dx); Bipolar affective disorder, currently depressed, mild ([facility]); Chronic seasonal allergic rhinitis; Nephrolithiasis; Lumbar back pain with radiculopathy affecting left lower extremity; Migraine without aura and without status migrainosus, not intractable Start: 07-14-2024 End: 07-14-2024 ambulatory RONY COX [facility] Start: 07-12-2024 End: 07-14-2024 Refill Darrell Hernandez DO Work Phone: [facility] Comment on above: Lumbar back pain wit h radiculopathy affecting left lower extremity Start: 06-09-2024 End: 06-09-2024 Refill [facility] Comment on above: Bipolar affective di sorder, currently depressed, mild ([facility]); Canker sores oral; Vitamin D deficiency; Chronic seasonal allergic rhinitis; Mineral metabolism disorder; Nephrolithiasis; Lumbar back pain with radiculopathy affecting left lower extremity; Migraine without aura and without status migrainosus, not intractable Start: 02-12-2024 End: 02-14-2024 Refill [facility] Comment on above: Lumbar back pain wit h radiculopathy affecting left lower extremity Start: 12-15-2023 End: 12-17-2023 Refill Rony Cox [employer] MANAGER[employer] Work Phone: [facility] Comment on above: Lumbar back pain wit h radiculopathy affecting left lower extremity Start: 11-08-2023 End: 11-08-2023 Refill Rony Grayillo G[employer] MANAGER-SH[employer] Work Phone: [facility] Comment on above: Bipolar affective di sorder, currently depressed, mild ([facility]) Start: 10-14-2023 End: 10-15-2023 Refill Rony J Cox G[employer] SH[employer] MANAGER-[employer] MAN Work Phone: [facility] Comment on above: Lumbar back pain wit h radiculopathy affecting left lower extremity; Bipolar affective disorder, currently depressed, mild ([facility]) Start: 09-12-2023 Refill Rony barnardo [employer] MANAGER[employer] Work [facility]: [facility] Comment on above: Lumbar back pain wit h radiculopathy affecting left lower extremity; Vitamin D deficiency Start: 08-14-2023 Refill Rony J Cast illo [employer] MANAGER[employer] Work Phone: [facility] Comment on above: Lumbar back pain wit h radiculopathy affecting left lower extremity Start: 08-06-2023 Refill Rony J Cast illo [employer] MANAGER[employer] Work Phone: [facility] Start: 02-21-2023 End: 02-22-2023 ambulatory RONY COX [facility] Start: 02-21-2023 End: 02-21-2023 Patient encounter procedure Li Nicholsmetz [facility] Start: 01-24-2023 ambulatory RONY [...] Start: 10-27-2020 End: 10-28-2020 ambulatory [facility] Start: 10-27-2020 End: 10-27-2020 [facility] Start: 10-27-2020 End: 10-28-2020 ambulatory [facility] Start: 10-27-2020 End: 10-27-2020 [facility] Start: 06-03-2020 End: 2020 ambulatory [facility] Start: 06-03-2020 End: 06-03-2020 Subsequent hospital visit by physician [facility] Start: 05-12-2020 End: 05-13-2020 ambulatory [facility] Start: 05-12-2020 End: 05-12-2020 Subsequent [...] Adult depression scr eening assessment Rony Cox [employer] Work Phone: Start: 09-19-2022 Microscopic observat ion [Identifier] in Cervix by Cyto stain Rony Cox [employer] Work Phone: Start: 10-27-2020 Antibody hiv-1&hiv-2 single result Diego Hernandez [employer] MA[employer]GER [employer] Work Phone: Start: 10-27-2020 Comprehensive metabo lic panel Diego David [employer] MA[employer]GER [employer] Work Phone: Start: 10-27-2020 IMMATURE PLATELET FRACTION Diego Hernandez [employer] MANAGER [employer] Work Phone: Start: 05-12-2020 Antibody hiv-1&hiv-2 single result DIEGO DAVID Start: 05-12-2020 Blood count complete automated DIEGO HERNANDEZ Start: 05-12-2020 Iadna hepatitis c qu ant & reverse power barker DIEGO HERNANDEZ Start: 05-12-2020 Acute hepatitis panel [...] Up Plan Adult BMI Follow Up Plan [facility] Start: 10-13-2025 Adult BMI Screening Adult BMI Screen ing [facility] Start: 10-13-2025 Tobacco Screening Tobacco Screening [facility] Start: 09-19-2025 Screening for malign ant neoplasm of cervix Pap Smear [facility] Start: 09-08-2025 Adult BMI Follow Up Plan Adult BMI Follow Up Plan [facility] Start: 09-08-2025 Adult BMI Screening Adult BMI Screen ing [facility] Start: 09-08-2025 Tobacco Screening Tobacco Screening [facility] Start: 07-14-2025 Adult BMI Follow Up Plan Adult BMI Follow Up Plan [facility] Start: 07-14-2025 Adult BMI Screening Adult BMI Screen ing [facility] Start: 07-14-2025 Tobacco Screening Tobacco Screening [facility] Start: 05-27-2025 End: 05-27-2025 Patient encounter procedure 05/27/2025 9:30 AM EST Office Visit [facility] [address] [place] [phone] Celeste Camacho, PA [address] [place], [place] [id number] [facility] Start: 04-22-2025 End: 04-22-2025 Patient encounter procedure 04/22/2025 10:30 AM EDT Office Visit [facility] [address] [place] [phone] Celeste Camacho PA [address] [place] [address] [facility] Start: 04-14-2025 End: 04-14-2025 Patient encounter procedure [facility] Family [facility] Start: 03-02-2025 Influenza vaccination Influenza Vacc ine [facility] Start: 12-08-2024 End: 12-08-2024 Patient encounter procedure [facility] Comment on above: Arrived Start: 10-13-2024 End: 10-13-2024 Patient encounter procedure 10/13/2024 3:20 PM EDT Office Visit [facility] Internal Medicine - Family Medicine [address] [place] [phone] Rony Cox, GIFT SHOP MANAGER-[facility] [address] [place] [address] [facility] Internal [facility] - Family Medicine Start: 09-22-2024 End: 09-22-2024 Patient encounter procedure 09/22/2024 2:20 PM EDT Office Visit [facility] [address] [place] [phone] Aurelio Stanley DO [address] [place], [place] [id number] Arrived [facility] Comment on above: Arrived Start: 09-11-2024 End: 09-11-2024 Clinical Support 09/11/2024 11:00 AM EDT Clinical Support [facility] Internal [facility] - Family Medicine [address] [place] [address] [facility] - Family Medicine Start: 09-08-2024 End: 09-08-2024 Patient encounter procedure 09/08/2024 2:20 PM EDT Office Visit [facility] Internal Medicine - Family Medicine [address] [place] [address] Rony Cox, GIFT SHOP MANAGER-SHOT [employer] [address] [place] [address] [facility] - Family Medicine Start: 07-14-2024 End: 07-14-2024 Patient encounter procedure 07/14/2024 1:00 PM EST Office Visit [facility] Internal [facility] - Family Medicine [address] [place] [address] Rony Cox, GIFT SHOP MANAGER-SHOT MAN [address] [place] [address] [facility] - Family Medicine Start: 07-11-2024 Tobacco Counseling Tobacco Counselin g [facility] Start: 07-03-2024 End: 07-03-2024 Patient encounter procedure 07/03/2024 11:40 AM EST Office Visit [facility] Internal [facility] - Family Medicine [address] [place] [address] Rony Cox, GIFT SHOP MANAGER-SHOT MAN [address] [place] [address] [facility] - Family Medicine Start: 06-14-2024 Adult BMI Follow Up Plan Adult BMI Follow Up Plan [facility] Start: 06-14-2024 Adult BMI Screening Adult BMI Screen ing [facility] Start: 06-14-2024 Depression Screening Depression Scre ening [facility] Start: 06-14-2024 Tobacco Screening Tobacco Screening [facility] Start: 03-24-2024 End: 03-24-2024 Patient encounter procedure 03/24/2024 3:20 PM EDT Office Visit [facility] - Family Medicine [address] [place] [phone] Rony Cox, GIFT SHOP MANAGER-SHOT MAN [address] [place] [address] [facility] Start: 03-02-2024 Influenza vaccination Influenza Vacc ine [facility] Start: 03-02-2023 Influenza vaccination Influenza Vacc ine [facility] Start: 03-02-2021 Influenza vaccination Flu vacc ine (Season Ended) [facility] [employer] Work Phone: Start: 03-02-2020 Influenza vaccination Flu vaccine (# 1) [facility] [place] Start: 12-21-2019 DTaP,Tdap and Td Vaccines (2 - Td or Tdap) DTaP,Tdap and Td Vaccines (2 - Td or Tdap) [facility] Start: 2008 Screening for malign ant neoplasm of cervix Pap Smear [facility] Start: 2003 COVID-19 Vaccine (1) COVID-19 Vaccin e (1) [employer] Work Phone: Start: 1987 Tobacco Counseling Tobacco Counselin g [facility] End: 10-13-2025 CBC W Auto Differential panel - Blood CBC auto differential Lab Routine Blood tests for routine general physical examination 1 Occurrences starting 10/13/2024 until 10/13/2025 [facility] Comment on above: 1 Occurrences starti ng 10/13/2024 until 10/13/2025 CBC W Auto Different ial panel - Blood CBC auto differential Lab Routine Blood tests for routine general physical examination 10/13/2024 9:51 PM EDT [facility] [employer] [facility] End: 10-13-2025 Comprehensive metabolic 2000 panel - Serum or Plasma Comprehensive metabolic panel Lab Routine Blood tests for routine general physical examination 1 Occurrences starting 10/13/2024 until 10/13/2025 [email or web address] Phone: Comment on above: 1 Occurrences starti ng 10/13/2024 until 10/13/2025 Comprehensive metabo lic 2000 panel - Serum or Plasma Comprehensive metabolic panel Lab Routine Blood tests for routine general physical examination 10/13/2024 9:51 PM EDT [facility] Cervical or vaginal smear or scraping study Pap Smear Pathology and Cytology Routine Well woman exam with routine gynecological exam Ordered: 12/08/2024 [employer] Work Phone: Comment on above: Ordered: 12/08/2024 End: 11-19-2025 Flow Cytometry, Varies Flow Cytometry, Varies Pathology and Cytology Routine Leukocytosis, unspecified type 1 Occurrences starting 11/19/2024 until 11/19/2025 [email or web address] Phone: Comment on above: 1 Occurrences starti ng 11/19/2024 until 11/19/2025 End: 10-13-2025 Hemoglobin A1c/Hemoglobin.total in Blood Hemoglobin A1c Lab Routine Blood tests for routine general physical examination 1 Occurrences starting 10/13/2024 until 10/13/2025 [employer] Comment on above: 1 Occurrences starti ng 10/13/2024 until 10/13/2025 Hemoglobin A1c/Hemoglobin.total in Blood Hemoglobin A1c Lab Routine Blood tests for routine general physical examination 10/13/2024 9:51 PM EDT [employer] End: 05-12-2020 Hepatitis C RNA, quantitative, PCR Hepatitis C RNA, quantitative, PCR Lab Routine Once for 1 Occurrences starting 05/12/2020 until 05/12/2020 [facility] [employer] Comment on above: Once for 1 Occurrenc es starting 05/12/2020 until 05/12/2020 Hepatitis C RNA, quantitative, PCR [facility] [employer] End: 10-27-2020 Hepatitis C RNA, quantitative, PCR Hepatitis C RNA, quantitative, PCR Lab Routine Once for 1 Occurrences starting 10/27/2020 until 10/27/2020 [employer] Phone: Comment on above: Once for 1 Occurrenc es starting 10/27/2020 until 10/27/2020 Human papilloma viru s DNA [Presence] in Unspecified specimen by Probe with amplification HPV DNA probe, amplified Microbiology Routine Well woman exam with routine gynecological exam Ordered: 12/08/2024 [facility] Comment on above: Ordered: 12/08/2024 End: 10-13-2025 Lipid 1996 panel - Serum or Plasma Lipid profile Lab Routine Blood tests for routine general physical examination 1 Occurrences starting 10/13/2024 until 10/13/2025 [facility] [employer] [facility] Comment on above: 1 Occurrences starti ng 10/13/2024 until 10/13/2025 Lipid 1996 panel - S daphne or Plasma Lipid profile Lab Routine Blood tests for routine general physical examination 10/13/2024 9:51 PM EDT [facility] End: 10-13-2025 Thyrotropin [Units/volume] in Serum or Plasma TSH Lab Routine Blood tests for routine general physical examination 1 Occurrences starting 10/13/2024 until 10/13/2025 [facility] Comment on above: 1 Occurrences starti ng 10/13/2024 until 10/13/2025 Thyrotropin [Units/volume] in Serum or Plasma TSH Lab Routine Blood tests for routine general physical examination 10/13/2024 9:51 PM EDT [facility] End: 07-15-2025 Vitamin D 25 hydroxy Vitamin D 25 hydroxy Lab Routine Vitamin D deficiency 1 Occurrences starting 07/14/2024 until 07/15/2025 [employer] Work Phone: Comment on above: 1 Occurrences starti ng 07/14/2024 until 07/15/2025 Immunizations Immunization Date Immunization Notes Care Provider Jordan walter 12-20-2009 tetanus toxoid, redu jarrett diphtheria toxoid, and acellular pertussis vaccine, adsorbed Li Deutsch [facility] Payers Date Payer Category Payer Medicaid [id number] 2019 Unknown 2018 Unknown [id number] 1.2 .[id number] 1987 Unknown [id number] 2.16.8 40.1.822073.3.579.2.196 1987 Unknown [id number] 2.16.8 40.1.634341.3.579.2.173 1987 Unknown [id number] 2.16.8 40.1.766323.3.579.2.173 1987 Unknown [id number] 2.16.8 40.1.758922.3.579.2.173 1987 Unknown [id number] 2.16.84 0.1.702354.3.579.2.593 1987 Unknown [id number] 2.16.84 0.1.846087.3.579.2.593 1987 Unknown [id number] 2.16.84 0.1.278215.3.579.2.593 1987 Unknown [id number] 2.16.84 0.1.028162.3.579.2.593 1987 Unknown [id number] 2.16.84 0.1.521796.3.579.2.593 1987 Unknown [id number] 2.16.8 40.1.274663.3.579.2.727 1987 Unknown [id number] 2.16. 840.1.541981.3.579.2.1286 1987 Unknown [id number] 2.16. 840.1.601032.3.579.2.1286 1987 Unknown [id number] 2.16. 840.1.818870.3.579.2.1286 1987 Unknown [id number] 2.16. 840.1.440031.3.579.2.1286 1987 Unknown [id number] 2.16. 840.1.637590.3.579.2.1286 1987 Unknown [id number] 2.16. 840.1.006977.3.579.2.1286 1987 Unknown [id number] 2.16. 840.1.180478.3.579.2.1286 1987 Unknown [id number] 2.16.8 40.1.571630.3.579.2.1259 1987 Unknown [id number] 2.16.8 40.1.175031.3.579.2.1259 1987 Unknown [id number] 2.16.84 0.1.581433.3.579.2.1259 1987 Unknown [id number] 2.16.84 0.1.437825.3.579.2.1259 1959 Medicaid [id number] 1959 Unknown [id number] 1959 Unknown [id number] Social History Date Type Detail Facility Tobacco smoking stat [facility] Unknown if ever smoked [facility] [place], [place] Start: 1985 Sex Assigned At Not on file [place], [place] Tobacco smoking status No Smokin g Status Entered [facility] Start: 06-14-2023 End: 01-07-2024 Sex Assigned At Female [facility] Start: 11-06-2022 End: 11-06-2023 Tobacco smoking status MDIS Smokes tobacco daily [facility] History of tobacco use Cigarette Smoker P [facility] Start: 11-06-2022 End: 01-07-2024 Cigarettes smoked current (pack per day) - Reported 0.5 [facility] Start: 11-06-2022 End: 11-06-2023 Tobacco use and exposure Smokeless tobacco non-user [facility] Start: 06-14-2023 End: 09-08-2024 Alcoholic beverage intake Ex-drinker (finding) [facility] How hard is it for y ou to pay for the very basics like food, housing, medical care, and heating Hard [facility] Adolescent depressio n screening assessment 0 [facility] Start: 02-04-2015 Sex Female (finding) [facility] Start: 01-07-2024 End: 12-08-2024 Alcoholic beverage intake Lifetime non-drinker (finding) [facility] Start: 1987 Sex assigned at Female [facility] Start: 09-25-2023 Gender identity Identifies as female gender (finding) [facility] Clinical Notes 06-08-2022 to 03-19-2025 Ella Kothari - 03/19/2025 9:10 AM EDTTelephone Encounter - Polly Bryant, GIFT SHOP MANAGER-SHOT MAN - 01/20/2025 12:26 AM EDTTelephone Encounter - [...] on 04-15-[address] Stanley at [facility]. MEDICATIONS Current Outpatient Medications Medication Instructions [...] Problems Past Medical History: Diagnosis Date Ectopic ([facility]) High blood pressure Kidney stones HISTORY PAST MEDICAL HISTORY SOCIAL HISTORY Past Medical History: Diagnosis Date Ectopic ([facility]) High blood pressure Kidney stones Social History [...] nursing note reviewed. Exam conducted with a guardian family member present. Vitals: Estimated body mass index is [...] reviewed, and patient is to proceed to [facility] OR. Follow Up: Patient is to follow up at 1 & 6 weeks post operative to assess proper healing and recovery from procedure. Documented by Aurelio Stanley DO documented in this encounter [facility] 01-20-2025 Miscellaneous Notes Pt needs to choose provider and set up appt, due for lab re-check Left message to call back and schedule with provider of her choice documented in this encounter [facility] 01-20-2025 Telephone encounter Note Pt needs to choose provider and set up appt, due for lab re-check [facility] 01-20-2025 Telephone encounter Note Left message to call back and schedule with provider of her choice [facility] 12-08-2024 History of Present illness Narrative Reason [...] nursing note reviewed. Exam conducted with a guardian family member present. Vitals: Estimated body mass index is [...] difficulty. Patient advised to reach out to business integration analyst if she decides to proceed to OR [...] Aurelio Stanley DO documented in this encounter [facility] 11-18-2024 History of Present illness Narrative Attempted to notify patient regarding abnormal labs. Unable to reach. LISA Walker 11/18/24 1310 documented in this encounter [facility] [employer] [facility] 10-13-2024 History of Present illness Narrative Images from the original note were not included[place] [address] SUBJECTIVE: Patient ID: Farideh Hsu is a [...] Trazodone 100 mg oral nightly She has scheduling analyst, Dr. Stanley. Recently had exploratory lap for [...] Walker 10/13/24 1558 documented in this encounter [facility] 10-13-2024 Instructions LISA Walker - 10/13/2024 3:20 PM EDT Are You Ready To Kick The Habit? Free Tobacco Cessation Resources [facility] Tobacco Treatment Center Services [facility] Tobacco Treatment Centers provide all employees with free tobacco cessation services that include: Counseling to understand nicotine addiction Education about medications that can help you successfully quit Assistance with developing a plan to quit Call to set up an individual appointment or find out when group classes will be held: [facility]: [phone] [facility]: [phone] [facility]: [phone] [facility]: [phone] Quit Smoking Action Plan and Resources [facility] offers an eight-week, online smoking cessation plan to all [facility] employees, regardless of whether [employer] is your medical insurance provider. Go to www.[employer]ica.org/[email or web address] ess and click the Health Risk Assessment and Resources link to get started. In the [employer]der[employer] menu, click Action Plans instead of Health Risk Assessment to access the Quit Smoking Action Plan. Additional smoking cessation resources are also available to all [facility] employees on the Hxnuy6Zqaefd web page at [email or web address] [email or web address]. [employer] Tobacco Cessation Program If [employer] is your medical insurance provider, there are more free resources available to you, including: No copays or deductibles on local tobacco cessation counseling services to help you quit Prescription assistance for tobacco cessation medications to help you quit For details about the tobacco cessation program available to [employer] members, go to www.Neolinear.Leaf (Search: Tobacco Cessation Program). [place] Tobacco Quit Line 4-130-PQVY-NOW ( ) is a toll-free, telephonic service that helps [place] residents quit smoking and using tobacco. It is staffed by experts who tailor a quit plan for you and provide you with advice. [place] Tobacco Quit Line 6-734-IHPK-NOW ( ) is a toll-free, telephonic service that helps [place] residents quit smoking and using tobacco. It is staffed by experts who tailor a quit plan for you and provide you with advice. Two weeks of nicotine replacement therapy may be provided at no charge, if needed. Additional Resources These national organizations also offer free information and resources to help you quit tobacco: [employer]--www.cancer.org/healthy/s tayawayfromtobacco [employer] Heart Association--www.heart.org (Search: Quit Smoking) Centers for Disease Control and Prevention--www.cdc.gov/tobacco [employer] Lung Association--www.lungusa.org The following attachments cannot be sent through Care Everywhere.Lowering Your Risk of Colon Cancer (Danish)Yearly Physical for Adults (Danish)documented in this encounter [employer] 09-22-2024 History of Present illness Narrative Reason [...] nursing note reviewed. Exam conducted with a guardian family member present. Vitals: Estimated body mass index is [...] could be referred to Dr. Dozier in [place]. Patient to monitor symptoms after surgery as she is having discomfort. If patient starts to have symptoms again then she is to reach out to office and surgical procedure could be discussed. Patient to return to clinic for routine annual appointment. Documented by Yoon Baker LPN on behalf of: Aurelio Stanley DO documented in this encounter [facility] 09-11-2024 History of Present illness Narrative Patient was here for her blood pressure to be checked. documented in this encounter [facility] 09-09-2024 Miscellaneous Notes [facility] called for a preop clearance , I seen she comes back . Canyou send that as soon as you get it ? fax# [phone] I have a clearance letter which needs faxed. done documented in this encounter [facility] 09-09-2024 Telephone encounter Note [facility] called for a preop clearance , I seen she comes back . Canyou send that as soon as you get it ? fax# [phone] [facility] 09-09-2024 Telephone encounter Note I have a clearance letter which needs faxed. [facility] 09-09-2024 Telephone encounter Note done [facility] 09-08-2024 History of Present illness Narrative Images from the original note were not included. [address] [place] [address] SUBJECTIVE: Patient ID: Farideh Hsu is a [...] Walker 09/08/24 1441 documented in this encounter [facility] 08-19-2024 History of Present illness Narrative Reason for Appointment: Patient ID: Rick Hsu is a 39 y.o. female who presents for Pre-op Visit Patient presents today for Pre Op appointment. Patient is scheduled to undergo Diagnostic Laparoscopy, possible BREANN, possible FOE, possible BSO on 09/12/[address] Stanley at [facility]. MEDICATIONS Current Outpatient Medications Medication Instructions [...] nursing note reviewed. Exam conducted with a guardian family member present. Vitals: Estimated body mass index is [...] reviewed, and patient is to proceed to [facility] OR. Follow Up: Patient is to follow up between 1-2 weeks post operative to assess proper healing and recovery from procedure. Documented by Bessie Ely LPN on behalf of: Aurelio Stanley DO documented in this encounter [facility] 07-14-2024 History of Present illness Narrative Images from the original note were not included. [address] [place] [address] SUBJECTIVE: Patient ID: Farideh Hsu is a [...] Walker 07/14/24 1331 documented in this encounter [facility] [employer] [facility] 02-12-2024 Miscellaneous Notes ----- Message from LISA Rodriguez sent at 02/12/2024 12:24 PM EDT ----- No future ketty scheduled. Overdue for wellness, follow up LM on VM Scheduled documented [facility] encounter [facility]-12-2024 Telephone encounter Note ----- Message from LISA Rodriguez sent at 02/12/2024 12:24 PM EDT ----- No future ketty scheduled. Overdue for wellness, [facility] 02-12-2024 Telephone encounter Note LM on VM [facility] 02-12-2024 Telephone encounter Note Scheduled [facility] 06-08-2022 Note Indication: Right fl ank pain. [...] hydronephrosis or hydroureter bilaterally. Electronically authenticated by: EIMLIANA HAWKINS Date: 2022-06-08 20:45 [facility] Evaluation + Plan note No data available for this section [facility] Evaluation note Diagnosis Mineral [...] Primary Bipolar affective disorder, currently depressed, mild ([facility]) Bipolar I disorder, most recent episode (or [...] left lower extremity [facility] Diagnosis Lumbar back pain with radiculopathy affecting left lower extremity [facility] Diagnosis Lumbar back pain with radiculopathy affecting left lower extremity [facility] Diagnosis Lumbar back pain with radiculopathy affecting left lower extremity Vitamin D deficiency [facility] Diagnosis Lumbar back pain with radiculopathy affecting left lower extremity Bipolar affective disorder, currently depressed, mild (CMS-HCC) Bipolar I disorder, most recent episode (or current) depressed, mild [facility] Diagnosis Mineral metabolism disorder- [...] migrainosus, not intractable [facility] Diagnosis Pre-op examination Pelvic pain in female Unspecified symptom associated with female genital organs documented in this encounter [facility]* Diagnosis 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 Urinary tract infection, site unspecified Nephrolithiasis Calculus of kidney Migraine without aura and without status migrainosus, not intractable [facility] Diagnosis 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 Urinary tract infection, site unspecified Nephrolithiasis Calculus of kidney Benign essential HTN- Primary [facility]* Diagnosis Postoperative follow-up Follow-up examination, following unspecified surgery Endometriosis Endometriosis, site unspecified documented in this encounter [facility]* Diagnosis 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 Urinary tract infection, site unspecified Nephrolithiasis Calculus of kidney Lumbar back pain with radiculopathy affecting left lower extremity [facility] Diagnosis 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 Urinary tract infection, site unspecified Nephrolithiasis Calculus of kidney Annual physical exam- Primary Routine general medical examination at a health care facility Insomnia, unspecified type Blood tests for routine general physical examination Laboratory examination ordered as part of a routine general medical examination documented [facility] Diagnosis 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 Urinary tract infection, site unspecified Nephrolithiasis Calculus of kidney Migraine without aura and without status migrainosus, not intractable [facility] Diagnosis 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 Urinary tract infection, site unspecified Nephrolithiasis Calculus of kidney Leukocytosis, unspecified type- Primary [facility] Diagnosis 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 Urinary tract infection, site unspecified Nephrolithiasis Calculus of kidney Bipolar affective disorder, currently depressed, mild ([facility]) Bipolar I disorder, most recent episode (or current) depressed, mild [facility]* Diagnosis Well woman exam with routine gynecological exam Routine gynecological examination Pelvic pain in female Unspecified symptom associated with female genital organs Menorrhagia with regular cycle documented in this encounter [facility] HealthcareEvaluation note* Diagnosis 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 Urinary tract infection, site unspecified Nephrolithiasis Calculus of kidney Nephrolithiasis Calculus of kidney Bipolar affective disorder, currently depressed, mild ([facility]) Bipolar I disorder, most recent episode (or current) depressed, mild Lumbar back pain with radiculopathy affecting left lower extremity [facility] Diagnosis 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 Urinary tract infection, site unspecified Nephrolithiasis Calculus of kidney Insomnia, unspecified type documented [facility]* Diagnosis Pre-op examination Pelvic pain Dyspareunia in female Dysmenorrhea Menorrhagia with regular cycle documented in this encounter [facility] HealthcareHospital Discharge instructions No data available for this section [facility] InstructionsNot on filedocumented in this encounter [facility] SystemInstructions* Attachments The following attachments cannot be sent through Care Everywhere. * Bipolar disorder (Danish) [facility]ructionsNot on file documented in this encounterPro[facility] SystemInstructionsNot on file documented in this encounterPro[facility] SystemInstructionsNot on file documented in this encounterProCit[facility] SystemInstructionsNot on file documented in this encounterPro[facility] SystemInstructionsNot on file documented in this encounterProCit[facility] SystemInstructionsNot on file documented in this encounterPro[facility] SystemInstructionsNot on file documented in this encounterProCit[facility] SystemInstructions* Attachments The following attachments cannot be sent through Care Everywhere. * High blood pressure in adults (Danish) documented in this encounterProCit[facility] SystemInstructionsNot on file documented in this encounterProCit[facility] SystemInstructionsNot on file documented in this encounterProCit[facility] SystemInstructionsNot on file [facility] No data available for this section [facility] Summary Purpose Family History [...] CODE STATUS: Full code PCP: unknown Consult: [employer] Diagnoses: 1. Heroin addiction 2. Tobacco user [...] Patient is to follow-up tomorrow with Asia's casework manager and has further follow-up appointments to schedule her outpatient Vivitrol injection. All questions have been answered patient is being (more content not included)... Additional Source Comments INFORMATION SOURCE (unrecogn ized section and content) DATE CREATED AUTHOR 01/27/2020 [facility] DATE CREATED AUTHOR AUTHOR'S ORGANIZ ATION 11/02/2020 [facility] DATE CREATED AUTHOR AUTHOR'S ORGANIZ ATION 10/03/2022 [facility] DATE CREATED AUTHOR AUTHOR'S ORGANIZ ATION [facility]20[facility] DATE CREATED AUTHOR AUTHOR'S ORGANIZ ATION 10/15/2024 [facility] DATE CREATED AUTHOR AUTHOR'S ORGANIZ ATION 10/15/2024 [facility] DATE CREATED AUTHOR AUTHOR'S ORGANIZ ATION 11/28/2024 [facility] DATE CREATED AUTHOR AUTHOR'S ORGANIZ ATION 03/20/2025 [facility] dical Specialists EPIC Patient Care team informatio n (unrecognized section and content) Art Tracer Relationship Specialty Start Date End Date Rony Cox APRN-DAISY [address] [place] [address] PCP - General Family Medicine 11/03/22 Art Tracer Relationship Specialty Start Date End Date Rony Cox APRN-CNP [address] [place] [address] PCP - General Family Medicine 11/03/22 Art Tracer Relationship Specialty Start Date End Date Rony Cox APRN-CNP [address] [place] [address] PCP - General Family Medicine 11/03/22 Art Tracer Relationship Specialty Start Date End Date Rony Cox [facility] [address] [place] [address] PCP - General Family Medicine 11/03/22 Art Tracer Relationship Specialty Start Date End Date Rony Cox [facility] [address] [place] [address] PCP - General Family Medicine 11/03/22 Art Tracer Relationship Specialty Start Date End Date Rony Cox [facility] [address] [place] [address] PCP - General Family Medicine 11/03/22 Art Tracer Relationship Specialty Start Date End Date Rony Cox [facility] [address] [place] [address] PCP - General Family Medicine 11/03/22 Art Tracer Relationship Specialty Start Date End Date Rony Cox [facility] [address] [place] [address] PCP - General Family Medicine 11/03/22 Art Tracer Relationship Specialty Start Date End Date Rony Cox [facility] [address] [place] [address] PCP - General Family Medicine 11/03/22 Art Tracer Relationship Specialty Start Date End Date Rony Cox [facility] [address] [place] [address] PCP - General Family Medicine 11/03/22 Art Tracer Relationship Specialty Start Date End Date Rony Cox APRN-CNP [address] [place] [address] PCP - General Family Medicine 11/03/22 Art Tracer Relationship Specialty Start Date End Date Rony Cox APRNDAISY [address] LEFT PM 12/29/[address] [place] [address] PCP - General Family Medicine 11/03/22 01/21/25 Art Tracer Relationship Specialty Start Date End Date Rony Cox APRNDAISY [address] LEFT PM 12/29/[address] [place] [address] PCP - General Family Medicine 11/03/22 01/21/25 [...] BE BASED ON THE PRIMARY CLINICAL RECORDS. [employer] [facility]. provides no warranty or guarantee of the accuracy or completeness of information in this document.
[2025-04-15] MEDS: IBUPROFEN 400 MG TABLET 800 MG PO (17:49)
--- NOTE | 2025-04-15 18:53 | PC.NURSE ---
patient walked in the ramachandran with RN assistance
[2025-04-15] MEDS: ENOXAPARIN SODIUM 40 MG/0.4 ML SYRINGE SUBQ (23:16)
[2025-04-16 04:00] VITALS: BP 124/76; PULSE 100; TEMP 36.3; O2SAT 92
[2025-04-16] MEDS: OXYCODONE HCL/ACETAMINOPHEN 5MG/325MG 2 TAB PO (04:03)
[2025-04-16 06:02] LABS: Hematocrit 34.8 % (36.0-48.0); Hemoglobin 11.7 g/dL (12.0-16.0); Immature Granulocytes Abs Auto 0.16 10^3/uL (0.00-0.03); Immature Granulocytes Pct Auto 0.7 % (0.0-0.5); Lymphocytes Absolute Auto 2.8 10^3/uL (1.2-3.8); Mean Corpuscular HGB Conc 33.6 g/dL (29.9-35.2); Mean Corpuscular Hemoglobin 29.5 pg (26.7-34.0); Mean Corpuscular Volume 87.7 fL (81.0-99.0); Platelet Count 232 10^3/uL (150-450); Red Blood Count 3.97 10^6/uL (4.20-5.40); White Blood Count 23.3 10^3/uL (4.0-11.0)
[2025-04-16 07:28] VITALS: BP 125/80; PULSE 96; TEMP 36.4; O2SAT 90
[2025-04-16 07:29] VITALS: PULSE 96
--- NOTE | 2025-04-16 07:39 | P.GYNPN_ITS ---
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: Subj Post-Op Subjective: patient reports feeling better, patient has no complaints, patient desires discharge, pain is well controlled and patient is tolerating oral intake Exam Constitutional Vital Signs, click to edit/add: Last Vital Signs Temp 97.6 F 04/16/25 07:28 Pulse 96 H 04/16/25 07:29 Resp 18 04/16/25 07:29 BP 125/80 04/16/25 07:28 Pulse Ox 90 L 04/16/25 07:28 O2 Del Method Nasal Cannula 04/16/25 07:28 O2 Flow Rate 1 04/16/25 07:28 Documenting provider has reviewed patient's vital signs: yes Common normals: no apparent distress Respiratory Common normals: normal respiratory effort and clear to auscultation bilaterally Cardio Common normals: regular rate and regular rhythm GI Common normals: Normal to inspection, nondistended, normoactive bowel sounds p resent Extremity Common normals: no clubbing, cyanosis or edema and no calf tenderness Results Labs Labs: Short CBC 04/16/25 Range/Units 05:46 WBC 23.3 H (4.0-11.0) 10^3/uL Hgb 11.7 L (12.0-16.0) g/dL Hct 34.8 L (36.0-48.0) % Plt Count 232 (150-450) 10^3/uL FIRE APPARATUS ENGINEER - A/P Postoperative Procedures: Procedures Operation Date: 04/15/25 07:30 Actual Procedure Side Surgeon p Total Abdominal supra cervical Hysterectomy, Bilateral Aurelio Jaden, Postoperative day: 1 Postoperative status FIRE APPARATUS ENGINEER: doing well Post-operative plan FIRE APPARATUS ENGINEER: routine post-op care, advance diet and discharge Fall Risk Details Bond fall scale risk level: Low Fall Risk Current medications: Current Medications Al Hydroxide/Mg Hydroxide (Magnesium Hydroxide 2,400 Mg/10 Ml Oral.Susp) 2,400 mg PO ONCE ONE Stop: 04/16/25 09:01 Docusate Sodium (Docusate Sodium 100 Mg Capsule) 100 mg PO BID PRN PRN Reason: Constipation Enoxaparin Sodium (Enoxaparin Sodium 40 Mg/0.4 Ml Syringe) 40 mg SUBQ Q24H ARI Last Admin: 04/15/25 23:16 Dose: 40 mg Hydromorphone HCl (Hydromorphone Hcl 0.5 Mg/0.5 Ml Syringe) 0.5 mg IV Q3H PRN PRN Reason: Pain Scale 7-10 Lactated Ringer's (Lactated Ringers) 1,000 mls @ 125 mls/hr IV .Q8H ARI Last Infusion: 04/16/25 04:45 Dose: Infused Promethazine HCl 25 mg/ Sodium (Chloride) 51 mls @ 204 mls/hr IV Q6H PRN PRN Reason: Nausea And Vomiting Ibuprofen (Ibuprofen 400 Mg Tablet) 800 mg PO Q6H PRN PRN Reason: Pain Last Admin: 04/15/25 17:49 Dose: 800 mg Ketorolac Tromethamine (Ketorolac Tromethamine 30 Mg/Ml Vial) 30 mg IVP Q6H PRN PRN Reason: Pain Ondansetron HCl (Ondansetron Pf 4 Mg/2 Ml Vial) 4 mg IV Q6H PRN PRN Reason: Nausea Oxycodone/Acetaminophen (Oxycodone Hcl/Acetaminophen 5mg/325mg) 2 tab PO Q6H PRN PRN Reason: Pain Last Admin: 04/16/25 04:03 Dose: 2 tab Simethicone (Simethicone 80 Mg Tab.Chew) 80 mg PO PCHS PRN PRN Reason: Abdominal Distention Last Admin: 04/15/25 14:51 Dose: 80 mg Temazepam (Temazepam 15 Mg Capsule) 30 mg PO QHS PRN PRN Reason: Sleep Time Spent With Patient Time: Total time spent is greater than 50% in coordination of care (as documented) at patient's floor/unit and/or counseling patient: Time with patient: less than 15 minutes Urinary Catheter Management Urinary Catheter Management Urethral: Cath placed during this visit: no
[2025-04-16] MEDS: MAGNESIUM HYDROXIDE 2,400 MG/10 ML ORAL.SUSP 2400 MG PO (08:20)
[2025-04-16] MEDS: IBUPROFEN 400 MG TABLET 800 MG PO (08:20)
== END 2025-04-16 09:00 | disposition home or self-care (01) | DRG 513 ==
LOC: SURGOUT 15:34 → MS 15:34
PROVIDERS: Admitting Provider Obstetrics & Gynecology; PCP Nurse Practitioner; Visit Provider Obstetrics & Gynecology
PROC: 0UT90ZL Resection of Uterus, Supracervical, Open Approach (ICD-10-PCS; principal; 2025-04-15 07:30)
DX: N92.0 Excessive and frequent menstruation with regular cycle (principal); N94.10 Unspecified dyspareunia; N94.6 Dysmenorrhea, unspecified; Z87.442 Personal history of urinary calculi; F17.210 Nicotine dependence, cigarettes, uncomplicated; Z98.51 Tubal ligation status; E66.01 Morbid (severe) obesity due to excess calories; Z68.41 Body mass index [BMI] 40.0-44.9, adult; I10 Essential (primary) hypertension; K21.9 Gastro-esophageal reflux disease without esophagitis; F41.9 Anxiety disorder, unspecified; F32.A Depression, unspecified; F43.10 Post-traumatic stress disorder, unspecified
CPT/HCPCS: 36415; 84702; 85025; 88307; 94667; 94668; 94761; J0131; J0744; J1100; J1171; J1650; J1836; J1885; J2250; J2405; J2704; J3010

== ENCOUNTER 2025-04-29 11:20 | Emergency (ER) | payer MEDICAID, SELFPAY ==
--- OUTSIDE RECORDS SUMMARY | 2025-01-27 11:45 | XMS_ITS ---
Author Organization [facility] Address [address] [place] [address] Care Team Providers Care Senior Java Software Engineer Name Role Phone Dr. Manny Singh Primary Care Provider [phone] REASON FOR VISIT FILLING Social History Sex Assigned At : Social History Observation Description Sex Assigned At Female Encounters Encounter Location Date Provider Diagnosis [facility] [address] [place] [address] 2024 Manny Singh Plan Of Treatment Next Appt Details Provider Name:Izabela Selene, 11:30:00 AM, [address], [place], [address], Provider Name:Earlene Trevino , 06/15/2025 08:00:00 AM, [address], [place], [address], Provider Name:Yvonne pollard, 09/01/2025 02:30:00 PM, [address] [place], [address], Progress Notes * SHERI HSUB:1984 (39 yo F)Acc No.[id number]:01/27/2025 Patient:?SHADI TORY :?Manny Singh DDSDOB:1985???Age:39 Y???Sex: FemaleDate:01/27/2025Phone:[phone]:[address], [place], [id number] Subjective: * Chief Complaints: * F ILLING Billing Information: * Procedure Codes: * Electronic signature of Dr. Manny Singh , [facility], [id number] on 04/29/2025 at 11:45 AM EDTSign off status: Pending * Provider: Carla Singh DDS Date: 0 01/27/2025 Generated for Printing/Faxing/eTransmitting on:?04/29/2025 11:45 AM EDT
--- OUTSIDE RECORDS SUMMARY | 2025-02-03 10:00 | XMS_ITS ---
Author Organization [facility] Address [address] [place] [address] Care Team Providers Care Head Operator Name Role Phone Dr. Manny Singh Primary Care Provider Marisela Holt [phone] REASON FOR VISIT FILLING Social History Sex Assigned At : Social History Observation Description Sex Assigned At Female Encounters Encounter Location Date Provider Diagnosis [facility] [address] [place] [address] 02/03/2025 Marisela Holt Plan Of Treatment Next Appt Details Provider Name:Izabela Morton, 11:30:00 AM, [address] [place], [address], Provider Name:Earlene Trevino , 06/15/2025 08:00:00 AM, [address] [place], [address], Provider Name:Yvonne pollard, 09/01/2025 02:30:00 PM, [facility] [place], [address], Progress Notes * SAM HSU:1984 (39 yo F)Acc No.[id number]:02/03/2025 Patient:?TORY HSU :?Marisela HoltDOB:1985???Age:39 Y???Sex: FemaleDate:02/03/2025Phone:[phone]:[address], [place], [id number]:Dr. Manny Singh Subjective: * Chief Complaints: * F ILLING Billing Information: * Procedure Codes: * Electronic signature of Marisela Holt DMD on 04/29/2025 at 11:45 AM EDTSign off status: Pending * Provider: Carla Holt Date: 0 02/03/2025 Generated for Printing/Faxing/eTransmitting on:?04/29/2025 11:45 AM EDT
--- OUTSIDE RECORDS SUMMARY | 2025-02-27 10:00 | XMS_ITS ---
Author Organization [facility] Address [address] [place] [address] Care Team Providers Care Director Of Enterprise Applications Name Role Phone Dr. Manny Singh Primary Care Provider [phone] Yvonne Hernandez [phone] REASON FOR VISIT EST CARE Social History Sex Assigned At : Social History Observation Description Sex Assigned At Female Encounters Encounter Location Date Provider Diagnosis [facility] [address] [place] [address] 02/27/2025 Yvonne Cox Plan Of Treatment Next Appt Details Provider Name:Izabela Morton, 11:30:00 AM, [address], [place], [address], Provider Name:Earlene Trevino , 06/15/2025 08:00:00 AM, [address] [place], [address], Provider Name:Yvonne pollard, 09/01/2025 02:30:00 PM, [address] [place], [address], Progress Notes * SAM SHU:1984 (39 yo F)Acc No.[id number]:02/27/2025 Progress Notes Patient: SILVIA CASSIDYANTHA :?Yvonne HymanB:1985???Age:39 Y???Sex: FemaleDate:02/27/2025Phone:[phone]:[address], [place], [id number]:Dr. Manny Singh Subjective: * Chief Complaints: * E ST CARE * Electronic signature of Yvonne Cox , CAFETERIA FOOD SERVER-BC, REDEVELOPMENT MANAGER.CAFETERIA FOOD [email or web address].[email or web address] on 04/29/2025 at 11:44 AM EDTSign off status: Pending * Provider: Liana Cox Date: 0 02/27/2025 Generated for Printing/Faxing/eTransmitting on:?04/29/2025 11:44 AM EDT
--- OUTSIDE RECORDS SUMMARY | 2025-03-03 11:30 | XMS_ITS ---
Author Organization [facility] Address [address] [place] [address] Care Team Providers Care Surgery Assistant Name Role Phone Dr. Manny Singh Primary Care Provider [phone] Yvonne Hernandez [phone] REASON FOR VISIT ESTABLISH Social History Sex Assigned At : Social History Observation Description Sex Assigned At Female Encounters Encounter Location Date Provider Diagnosis [facility] [address] [place] [address] 03/03/2025 Yvonne Cox Plan Of Treatment Next Appt Details Provider Name:Izabela Morton, 11:30:00 AM, [address] [place], [address], Provider Name:Earlene Trevino , 06/15/2025 08:00:00 AM, [address] [place], [address], Provider Name:Yvonne pollard, 09/01/2025 02:30:00 PM, [address] [place], [address], Progress Notes * SAM HSU:1984 (39 yo F)Acc No.[id number]:03/03/2025 Progress Notes Patient: Erwin FELDER TORY :?Yvonne HymanB:1985???Age:39 Y???Sex: FemaleDate:03/03/2025Phone:[phone]:[address], [place], [id number]:Dr. Manny Singh Subjective: * Chief Complaints: * E STABLISH * Medical History: Nephrolithiasis Menorrhagia Endometriosis Billing Information: * Procedure Codes: * Electronic signature of Yvonne Cox , THIRD COOK-BC, TURRET PRESS OPERATOR.THIRD [id number] on 04/29/2025 at 11:45 AM EDTSign off status: Pending * Provider: Liana Cox Date: 0 03/03/2025 Generated for Printing/Faxing/eTransmitting on:?04/29/2025 11:45 AM EDT
--- OUTSIDE RECORDS SUMMARY | 2025-03-20 06:10 | XMS_ITS ---
Author Organization [facility] Address [address] [place] [address] Care Team Providers Care Human Resources Operations Coordinator Name Role Phone Dr. Manny Singh Primary Care Provider [phone] Izabela Morton [phone] REASON FOR VISIT FILLING Social History Sex Assigned At : Social History Observation Description Sex Assigned At Female Encounters Encounter Location Date Provider Diagnosis [facility] [address] [place] [address] 03/20/2025 Izabela Morton Dental caries on pit and fissure surface penetrating into dentin K02.52 Assessments Encounter Date Diagnosis (ICD Code) Assessment Notes Treatment Notes Treatment Clinical Notes Section Notes 03/20/2025 Dental caries on pit and fissure surface penetrating into dentin (ICD-10 - K02.52) Plan Of Treatment Next Appt Details Provider Name:Izabela Morton, 11:30:00 AM, [address] [place], [address], Provider Name:Earlene Uriel , 06/15/2025 08:00:00 AM, [place], [address], Provider Name:Yvonne pollard, 09/01/2025 02:30:00 PM, [place], [address], Progress Notes * SHERI HSUB:1984 (39 yo F)Acc No.[id number]:03/20/2025 Patient:TORY EMERSON :?Izabela MortonDOB:1985???Age:39 Y???Sex:Female Date:03/20/2025Phone:[phone]:[address], [place], [id number]:Dr. Manny Singh Subjective: * Chief Complaints: * F ILLING Objective: * Dental Examination/Plan : * Tooth / Surface Status Description Provider Date 18 TP CROWN - PORCELN FUSED HI SOLER METL EY 03/20/2025 Assessment: * Assessment: 1.?Dental caries on pit and fissure surface penetrating into dentin - K02.52 (Primary)? ? Billing Information: * Procedure Codes: * Electronic signature of Izabela Yi , [id number] on 04/29/2025 at 11:45 AM EDTSign off status: Pending * Provider: Lamonte Morton Date: 0 03/20/2025 Generated for Printing/Faxing/eTransmitting on:?04/29/2025 11:45 AM EDT
--- OUTSIDE RECORDS SUMMARY | 2025-04-15 20:33 | XMS_ITS | Continuity of Care Document ---
Author Organization [facility] Address [address] [place] [address] Phone Care Team Providers Care Maintenance Mechanic Technician Name Role Phone Aurelio Stanley DO Attending Provider Care Teams Patient Care Team Team Status: Inactive Member Role Status Dates Aurelio Stanley DO Attending Provider Active Start : April 15, 2025 End: April 15, 2025 Chief Complaint and Reason for Visit Chief Complaint Admit Date Unknown April 15, 2025 9 :56am Allergies, Adverse Reactions, Alerts Allergen Type Severity Reaction Last Updated Verified Status No Known Allergies Allergy Unknown March 09, 2017 3:18pmYesActive Social History Smoking Status Status Start Date End Date Date of Observa tion Smokes tobacco daily (finding) December 03, 2017 10:25am Observation Status Observation Response Date of Response Legal Sex Female (finding) [facility] 1984 Family History Relationship Condition Age at Onset Recorded Date/T kati mother Hypertension Unknown Problems Inactive/Resolved Problems Medical Problem Onset Date Status Comments Metatarsal fracture Unknown Resolved Problem List clean-up per request of Phys. EHR Cmte Medications Medication Status Dose Units Route Directions Qty Days St art Date Stop Date End Date Instructions Adherence Pnv,Calcium 07-Ntdo-Htcnp Ac id ( Plus (Calcium Carb)) 27 mg iron- 1 mg tablet Discontinued March 09, 2017 12:00amJun2017 10:29am Advance Directives Advance Directive Response Recorded Date/ Time Advance Directives No March 3:35pm Insurance Providers Guarantor Farideh Peoples Address [address] [address]Mknbmii Info.Home Phone: Payer Policy Id Subscriber's Name Subscriber Id Effectiv e Date Expiration Date [employer] [id number] Farideh Peoples [id number] Encounters Encounter Location(s) Arrival/Admit Date Discharge/Depart Date Provider(s) Departed Referred -[facility] April 15, 2025 9:56am April 15, 2025 9:57am Aurelio Stalney
--- OUTSIDE RECORDS SUMMARY | 2025-04-22 10:30 | XMS_ITS | Encounter Summary ---
Author Organization [facility] Address [address] [place] [address] Care Team Providers Care Supervisor Sample Preparation Name Role Phone Unavailable Primary Care Provider Unavailabl e Reason for Visit * ReasonCommentsPost-op Visit Encounter Details DateTypeDepartmentCare Team (Latest Contact Info)Wjangmfrsfq95/22/2025 10:30 AM EDTOffice Visit [facility] [address] [place] [address] Celeste Camacho PA [address] [place], [place] [id number] H/O: hysterectomy Social History Tobacco UseTypesPacks/DayYears UsedDateSmoking Tobacco: Every DayCigarettes Smokeless Tobacco: NeverAlcohol UseStandard Drinks/WeekCommentsNever0 (1 standard drink = 0.6 oz pure alcohol)CommentsNoSex and Gender InformationValueDate RecordedSex Assigned at RecylJpuykf48/26/2024 7:14 PM EDT Legal UiqHzemza88/15/2023 11:47 PM EDTGender PponndstJlvlkf69/26/2024 7:14 PM EDTSexual OrientationNot on filedocumented as of this encounter Last Filed Vital Signs Vital SignReadingTime TakenCommentsBlood Lbglkxap611/7404/22/2025 10:45 AM EDT Pulse--Temperature--Respiratory Rate--Oxygen Saturation--Inhaled Oxygen Concentration--Ppqcqt216 kg (229 lb)04/22/2025 10:45 AM MTKAqhyyq980.9 cm (5' 1 )04/22/2025 10:45 AM EDTBody Mass Index43.271 10:45 AM EDTdocumented in this encounter Progress Notes * MICHELLE Murillo - 04/22/2025 10:30 AM EDT Reason for Appointment: Patient ID: Rick Peoples is a 39 y.o. female who presents for Post-op Visit Patient presents today for 1 Week Post Op Follow Up appointment. 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 Cardiovascular: Negative. Gastrointestinal: Negative. Genitourinary: Negative. Musculoskeletal: Negative. Skin: Negative. Neurological: Negative. All other systems reviewed and are negative. Hematological: Negative. Endocrine: Negative. Allergic/Immunologic: Negative. OBJECTIVE Objective: Physical Exam Constitutional: Appearance: Normal appearance. She is normal weight. HENT: Head: Normocephalic. Cardiovascular: Rate and Rhythm: Normal rate. Pulses: Normal pulses. Pulmonary: Effort: Pulmonary effort is normal. Breath sounds: Normal breath sounds. Abdominal: Palpations: Abdomen is soft. Comments: Raymond noted to pfannenstiel incision, healing well Musculoskeletal: General: Normal range of motion. Neurological: General: No focal deficit present. Mental Status: She is alert and oriented to person, place, and time. Skin: General: Skin is warm. Psychiatric: Mood and Affect: Mood normal. Behavior: Behavior normal. Thought Content: Thought content normal. Judgment: Judgment normal. Vitals and nursing note reviewed. Vitals: Estimated body mass index is 43.27 kg/m?? as calculated from the following: Height as of this encounter: 5' 1 . Weight as of this encounter: 229 lb. BP: 138/74 No LMP recorded. Assessment/Plan ICD-10-CM 1. H/O: hysterectomy Z90.710 Post Op Follow Up: Patient presents today for a one week postop check after having a total abdominal Hysterectomy. Patient is doing well but has minor complaints of pain. Incisions has been noted as healing well with no signs and symptoms of infection. Raymond removed and steristrips placed Follow Up: Patient is to return in 5 weeks for 6 week post operative evaluation Documented by MICHELLE Murillo on behalf of: MICHELLE Murillo documented in this encounter Plan of Treatment DateTypeDepartmentCare Team (Latest Contact Info)Zvhrphyfbrk73/26/2025 9:30 AM ESTOffice Visit [facility] [address] [place] [address] Celeste Camacho PA [address] [place] [address] 12/14/2025 2:00 PM EDTOffice Visit [facility] [address] [place] [address] Aurelio Stanley, [address] [place] [address] documented as of this encounter Visit Diagnoses Diagnosis H/O: hysterectomy Acquired absence of both cervix and uterus documented in this encounter
[2025-04-29 11:26] VITALS: BP 133/95; PULSE 117; TEMP 37.1; O2SAT 100; BMI 43.3
--- OUTSIDE RECORDS SUMMARY | 2025-04-29 11:45 | XMS_ITS | Clinical Summary ---
Author Organization [place] tem Address [id number] [address] [place] [address] Care Team Providers Care Housekeeper Child Care Name Role Phone Unavailable Primary Care Provider Unavailabl e Allergies Active AllergyReactionsCriticalityNoted TuyzWxundnqkNwpoixhklko70/07/2017 Medications MedicationSigDispense QuantityRefillsLast FilledStart DateEnd DateStatus fexofenadine (PETER) 180 mg tablet Indications:Chronic seasonal allergic rhinitisTake 1 tablet (180 mg total) by mouth in the morning. 30 tablet 605Active cholecalciferol, vitamin D3, (D3-2000) 2,000 units capsule Indications:Vitamin D deficiencyTake 1 capsule (2,000 Units total) by mouth in the morning. 30 each 1105Active lisinopriL (PRINIVIL,ZESTRIL) 20 mg tablet Indications:Benign essential HTNTake 1 tablet (20 mg total) by mouth in the morning. 30 tablet 605Active SUMAtriptan (IMITREX) 50 mg tablet Indications:Migraine without aura and without status migrainosus, not intractableTAKE 1 TABLET BY MOUTH IF NEEDED AT ONSET OF HEADACHE MAY REPEAT ... (REFER TO PRESCRIPTION NOTES). 9 tablet 5Active QUEtiapine (SEROquel) 100 mg tablet Indications:Bipolar affective disorder, currently depressed, mild (CMS-HCC)TAKE 1 TABLET BY MOUTH EVERY DAY AT NIGHT 30 tablet 5Active hydroCHLOROthiazide (HYDRODIURIL) 12.5 mg tablet Indications:NephrolithiasisTAKE 1 TABLET BY MOUTH EVERY DAY 30 tablet 505Active escitalopram (LEXAPRO) 10 mg tablet Indications:Bipolar affective disorder, currently depressed, mild (CMS-HCC)TAKE 1 TABLET (10 MG TOTAL) BY MOUTH IN THE MORNING 30 tablet 505Active meloxicam (MOBIC) 15 mg tablet Indications:Lumbar back pain with radiculopathy affecting left lower extremity TAKE 1 TABLET (15 MG TOTAL) BY MOUTH IN THE MORNING 30 tablet 505Active ARIPiprazole (ABILIFY) 5 mg tablet Indications:Bipolar affective disorder, currently depressed, mild (CMS-HCC)TAKE 1 TABLET (5 MG TOTAL) BY MOUTH IN THE MORNING 30 tablet 505Active methocarbamoL (ROBAXIN) 750 mg tablet Indications:Lumbar back pain with radiculopathy affecting left lower extremity TAKE 1 TABLET BY MOUTH THREE TIMES A DAY 30 tablet 1075Active traZODone (DESYREL) 100 mg tablet Indications:Insomnia, unspecified typeTAKE 1 TABLET BY MOUTH EVERY DAY AT NIGHT 30 tablet 3085Active Active Problems ProblemNoted DateDiagnosed DateMineral metabolism xyogsnat12/08/2017 Overview (09/06/2016): ==== 09/06/2016 ==== New problem, additional workup planned. the most recent KUB with bilateral smallcalculi. Family history stones. Plan: Mineral metabolism workup Wsjwqwwthgzyttf36/02/2017 Overview (03/13/2019): +++++++++ 08/31/2016 ALLSCRIPTS SUMMARY +++++++++++ ^^^^ Ureteroscopy on the right side lithoclast 2012. -KUB 2014 possible stone left lower pole. -Surveillance imaging ====03/13/19==== 4 weeks of bilateral lower back pain. No obvious obstruction or ureteral stone on CT. Will call with official read. We are sending today's urine for culture and will call her with theresults. We will start her on Bactrim. I told her to go to the emergency room if fever or persistent symptoms. We will see her back in 6 months with KUB to discuss the intrarenal stone Assessment & Plan (09/06/2016 3:40 PM EST): The KUB with small bilateral calculi. No intervening renal colic Encounters DateTypeDepartmentCare RxegZykbxeezaaz37/28/2025[facility] [address] [place] [address] Yvonne Cox APRN-DAISY Migraine without aura and without status migrainosus, not ixnzyloepqj84/14/2025 Grtwqh6001/29/2025[facility] [address] [place] [address] Yvonne Cox APRN-CNP Insomnia, unspecified typefrom Last 3 Months Family History Medical HistoryRelationNameCommentsKidney diseaseFatherRelationNameStatus CommentsFatherAliveMotherAlive Social History Tobacco UseTypesPacks/DayYears UsedDateSmoking Tobacco: Every DayCigarettes0.520 Smokeless Tobacco: Never Tobacco Cessation:Ready to Q uit: No; Counseling Given: Yes Alcohol UseStandard Drinks/WeekCommentsNot Currently0 (1 standard drink = 0.6 oz pure alcohol)Overall Financial Resource Strain (CARDIA)AnswerDate RecordedHow hard is it for you to pay for the very basics like food, housing, medical care, and heating?Hard3PHQ-2AnswerDate RecordedTotal Rvtin867/14/2023PRAPARE - TransportationAnswerDate RecordedIn the past 12 months, has lack of transportation kept you from medical appointments or from getting medications?No 05/26/2023In the past 12 months, has lack of transportation kept you from meetings, work, or from getting things needed for daily living?No05/26/2023 Housing InstabilityAnswerDate RecordedAre you worried or concerned that in the next two months you may not have stable housing that you own, rent or stay in as a part of a household?Yes3ChildcareAnswerDate RecordedChildcareUnknown 12/11/2018EmploymentAnswerDate CdqcvnyjYtonrqvvheXngyunf05/12/2019Hunger ScreeningAnswerDate RecordedWithin the past 12 months we worried whether our food would run out before we got money to buy more.Never True10/13/2024Within the past 12 months the food we bought just didn't last and we didn't have money to get more.Never True10/13/2024Purpose - LifeAnswerDate RecordedPurpose and direction in hnfyIbrpgby92/11/2021CommentsNoSex and Gender Information ValueDate RecordedSex Assigned at BirthNot on fileLegal NvsEpoqjo30/06/2015 11:36 AM EDTGender IdentityNot on fileSexual OrientationNot on file Last Filed Vital Signs Vital SignReadingTime TakenCommentsBlood Hxixapzd701/78010/13/2024 3:16 PM EDT Wwgdy80641/14/2025 3:16 PM YEQEksctpwzyge33.4 ??C (99.3 ??F)10/13/2024 3:16 PM EDTRespiratory Ohkl432210/13/2024 3:16 PM EDTOxygen Towwjcedba83%10/13/2024 3:16 PM EDTInhaled Oxygen Concentration--Hdywru297.7 kg (226 lb 6.4 oz)10/13/2024 3:16 PM OZJBqxnbt503.9 cm (5' 0.98 )10/13/2024 3:16 PM EDTBody Mass Index42.8 10/13/2024 3:16 PM EDT Plan of Treatment Health MaintenanceDue DateLast DoneCommentsTobacco Hnutapzzlf1987DTaP,Tdap and Td Vaccines (2 - Td or Tdap)Depression Screening Influenza Xmspmbq8803/02/2025Pap Smear Adult BMI Follow Up Plandult BMI Xyuvjttsw58/14/2026 10/13/2024Tobacco Dkjkyquqn12 Medical Devices Not on file Insurance
--- OUTSIDE RECORDS SUMMARY | 2025-04-29 11:45 | XMS_ITS | Clinical Summary ---
Author Organization [facility] Address [address] [place] [address] Care Team Providers Care Enterprise Security Architect Name Role Phone Unavailable Primary Care Provider Unavailabl e Allergies Active AllergyReactionsCriticalityNoted JkwwSkxdrwreDpukgeuflsoAzwivjb42/07/2017 Medications MedicationSigDispense QuantityRefillsLast FilledStart DateEnd DateStatus ARIPiprazole (Abilify) 5 MG tablet Take 1 tablet by mouth in the morning.10/15/2023ctive cholecalciferol (Vitamin D-3) 125 MCG (5000 UT) capsule Take 1 capsule by mouth in the morning.09/12/2023ctive escitalopram (Lexapro) 10 MG tablet Take 10 mg by mouth in the morning.05/01/2023ctive fexofenadine (Shelly) 180 MG tablet Take 180 mg by mouth in the morning.06/14/2023ctive hydroCHLOROthiazide (HYDRODiuril) 12.5 MG tablet Take 12.5 mg by mouth in the morning.06/14/2023ctive hydrOXYzine pamoate (Vistaril) 50 MG capsule take 1 capsule by mouth twice a day if igmubn7010/15/2023ctive meloxicam (Mobic) 15 MG tablet Take 1 tablet by mouth in the morning.09/12/2023ctive methocarbamol (Robaxin) 750 MG tablet Take 750 mg by mouth in the morning and 750 mg at noon and 750 mg in the evening.10/15/2023ctive SUMAtriptan (Imitrex) 50 MG tablet take 1 tablet by mouth if needed AT ONSET OF HEADACHE may repeat ... (REFER TO PRESCRIPTION NOTES).05/01/2023ctive QUEtiapine (SEROquel) 100 MG tablet 1 (one) time each day at the same timeActive traZODone (Desyrel) 100 MG tablet Take 100 mg by mouth at bedtimeActive Active Problems ProblemNoted DateDiagnosed XxutPhkyxkrrgftuy56/24/2025Menorrhagia with regular cycle01/07/2024 Encounters DateTypeDepartmentCare YagsNlsqgvgzqlv86/22/2025 10:30 AM EDTOffice Visit [facility] Marcy MARTINEZ [address] [place] [address] Celeste Camacho PA H/O: umzyqtcjiobw97/22/2025amboo flowsheet [facility] Marcy MARTINEZ [address] [place] [address] Celeste Camacho PA 04/20/2025bstract [facility] Mar[facility] MARTINEZ [address] [place] [address] Wendy Bowser MA 04/06/2025linisync Result Encounter N[facility]S External Department Unsolicited Harsh Stanley DO 04/06/2025linisync Result Encounter NOMS External Department Unsolicited Harsh Stanley, 03/19/2025 9:10 AM EDTConsult NOMAdan MARTINEZ [address] [place] [address] Harsh Stanley, Pre-op examination; Pelvic pain; Dyspareunia in female; Dysmenorrhea; Menorrhagia with regular cyclefrom Last 3 Months Family History Medical HistoryRelationNameCommentsKidney diseaseFatherRelationNameStatus CommentsFatherAliveMotherAlive Social History Tobacco UseTypesPacks/DayYears UsedDateSmoking Tobacco: Every DayCigarettes Smokeless Tobacco: Never Tobacco Cessation:Ready to Q uit: Not Asked; Counseling Given: Not Answered Alcohol UseStandard Drinks/WeekCommentsNever0 (1 standard drink = 0.6 oz pure alcohol)CommentsNoSex and Gender InformationValueDate RecordedSex Assigned at YthvaVilaog84/26/2024 7:14 PM EDTLegal HppWffsrt46/15/2023 11:47 PM EDTGender QnhoxamyNqvcyr74/26/2024 7:14 PM EDTSexual OrientationNot on file Last Filed Vital Signs Vital SignReadingTime TakenCommentsBlood Qisiescf794/7404/22/2025 10:45 AM EDT Pulse--Temperature--Respiratory Rate--Oxygen Saturation--Inhaled Oxygen Concentration--Nylgyp744 kg (229 lb)04/22/2025 10:45 AM DDTTncpmb241.9 cm (5' 1 )04/22/2025 10:45 AM EDTBody Mass Index43.271 10:45 AM EDT Plan of Treatment DateTypeDepartmentCare Team (Latest Contact Info)Nfiuypjqbcj69/26/2025 9:30 AM ESTOffice Visit SANDRO MARTINEZ [address] [place] [phone] Celeste Camacho PA [address] [place] [address] 12/14/2025 2:00 PM EDTOffice Visit SANDRO MARTINEZ [address] [address] Harsh Stanley DO [address] [place] [address] Procedures Procedure NamePriorityDate/TimeAssociated DiagnosisCommentsALL TYPE AND SCREEN Rdnzrny3504/06/2025 9:21 AM EDT ALL MISCELLANEOUS QVANWbreprc40/06/2025 9:21 AM EDT ALL BASIC METABOLIC IQNGOExiyfcf87/06/2025 9:21 AM EDT HMHP LIVER DKHSDQbeqdbt32/06/2025 9:21 AM EDT CCF WOIGYuslbhi36/06/2025 9:21 AM EDT SRMCOH PROTHROMBIN TIME INR W/O QXUHWuveksq74/06/2025 9:21 AM EDT ALL CBC WITH AUTO SDVPHxioqxi38/06/2025 9:21 AM EDT ECG 12-LEAD04/06/2025 7:16 AM EDT from Last 3 Months Results * SRMCO PROTHROMBIN TIME INR W/O COUM (04/06/2025 9:21 AM EDT)ComponentValueRef RangeTest MethodAnalysis TimePerformed AtPathologist SignaturePROTHROMBIN TIME 10.89.0 - 11.6 secTBHTBH INR1.02TBHComment: DESIRED INR: 2.0-3.0 CONDITIONS NOT LISTED BELOW 2.5-3.5 FOR PROSTHETIC HEART VALVE REPLACEMENT 2.5-3.5 RECURRENT THROMBOSIS Specimen (Source)Anatomical Location / LateralityCollection Method / Volume Collection TimeReceived Time04/06/2025 9:21 AM EDT1 9:23 AM EDT Narrative [facility] - 04/06/2025 9:44 AM EDT Authorizing ProviderResult TypeResult StatusCorey Jaden DOCLINISYNCFinal Result Performing OrganizationAddressCity/State/ZIP CodePhone Number [facility]ITALISYAT[facility] * (ABNORMAL) [facility] LIVER PANEL (04/06/2025 9:21 AM EDT)ComponentValueRef Range Test MethodAnalysis TimePerformed AtPathologist SignatureBILIRUBIN TOTAL0.40.2 - 1.0 mg/dLTBHBILIRUBIN DIRECT<0.10.0 - 0.2 mg/dLTBHASPARTATE AMINO QTIIIXLBLSS6312 - 37 U/LTBHALANINE BJQEQQGSDNUVUOUA96(H)14 - 59 U/LTBHALKALINE QKWCBUAWEPY146(H)46 - 116 U/LTBHTOTAL PROTEIN7.36.4 - 8.2 g/dLTBHALBUMIN LEVEL 3.3(L)3.4 - 5.0 g/dLTBHGLOBULIN4.0g/dLTBHALBUMIN GLOBULIN RATIO0.8TBHSpecimen (Source)Anatomical Location / LateralityCollection Method / VolumeCollection TimeReceived Time04/06/2025 9:21 AM EDT1 9:23 AM EDT Narrative CLINISYMT - 04/06/2025 10:28 AM EDT Authorizing ProviderResult TypeResult StatusCorey Jaden DOCLINISYNCFinal Result Performing OrganizationAddressCity/State/ZIP CodePhone Number [facility] * [facility] APTT (04/06/2025 9:21 AM EDT)ComponentValueRef RangeTest MethodAnalysis TimePerformed AtPathologist SignaturePARTIAL THROMBOPLASTIN TIME30.322.3 - 36.2 secTBHSpecimen (Source)Anatomical Location / LateralityCollection Method / VolumeCollection TimeReceived Time04/06/2025 9:21 AM EDT1 9:23 AM EDT Narrative [facility] - 04/06/2025 9:44 AM EDT Authorizing ProviderResult TypeResult StatusCorey Jaden DOCLINISYNCFinal Result Performing OrganizationAddressty/State/ZIP CodePhone Number [facility] * ALL TYPE AND SCREEN (04/06/2025 9:21 AM EDT)ComponentValueRef RangeTest Method Analysis TimePerformed AtPathologist SignatureBLOOD TYPEO PositiveTBHComment: PERFORMED BY LABCORPANTIBODY SCREENNEGATIVETBHSpecimen (Source)Anatomical Location / LateralityCollection Method / VolumeCollection TimeReceived Time 04/06/2025 9:21 AM EDT1 9:23 AM EDT [facility] - 04/09/2025 9:54 AM EDT [facility] , ?? Authorizing ProviderResult TypeResult StatusCorey Jaden DOCLINISYNCFinal Result Performing OrganizationAddLe[facility] [address]/[facility]/ZIP CodePhone Number [facility] * ALL MISCELLANEOUS TEST (04/06/2025 9:21 AM EDT)ComponentValueRef RangeTest MethodAnalysis TimePerformed AtPathologist SignatureMISCELLANEOUS TESTCOMMENT. TBHComment: Test Ordered: [id number] ABO Grouping and Rho(D) Typing ABO Grouping ? O ? CB ?? Reference Range: . Rh Factor ?Positive ?CB ?? Reference Range: . Please note: Prior records for this patient's ABO / Rh type are not available for additional verification. Performed at: ??CB - [facility] [address], [place], [place] [id number] Fine Sander: Hitesh Blanton PhD, Phone: ??[phone] Specimen (Source)Anatomical Location / LateralityCollection Method / Volume Collection TimeReceived Time04/06/2025 9:21 AM EDT1 9:21 AM EDT Narrative [facility] - 04/08/2025 8:21 AM EDT [id number] ABO Grouping and Rh Typing Authorizing ProviderResult TypeResult StatusCorey Jaden DOCLINISYNCFinal Result Performing OrganizationAddressCity/State/ZIP CodePhone Number [facility] * (ABNORMAL) ALL CBC WITH AUTO DIFF (04/06/2025 9:21 AM EDT)ComponentValueRef RangeTest MethodAnalysis TimePerformed AtPathologist SignatureTBH WBC12.2(H) 4.0 - 11.0 10 3/uLTBHTBH RBC4.384.20 - 5.40 10 6/uLTBHTBH HGB12.912.0 - 16.0 g/dLTBHTBH HCT38.136.0 - 48.0 %TBHTBH MCV87.081.0 - 99.0 fLTBHTBH MCH29.526.7 - 34.0 pgTBHTBH MCHC33.929.9 - 35.2 g/dLTBHTBH RDW14.011.0 - 15.0 %TBHTBH PLT 750601 - 450 10 3/uLTBHTBH MPV12.19.5 - 13.5 fLTBHNEUTROPHILS PERCENT AUTO68.9 43.0 - 75.0 %TBHLYMPHOCYTES PERCENT AUTO20.4(L)20.5 - 60.0 %TBHMONOCYTES PERCENT AUTO5.81.7 - 12.0 %TBHTBH EO %4.00.9 - 7.0 %TBHBASOPHILS PERCENT AUTO 0.50.2 - 2.0 %TBHIMMATURE GRANULOCYTES PCT AUTO0.40.0 - 0.5 %TBHNEUTROPHILS ABSOLUTE AUTO8.4(H)1.4 - 6.5 10 3/uLTBHLYMPHOCYTES ABSOLUTE AUTO2.51.2 - 3.8 10 3/uLTBHMONOCYTES ABSOLUTE AUTO0.70.3 - 0.8 10 3/uLTBHTBH EO #0.50.0 - 0.7 10 3/uLTBHBASOPHILS ABSOLUTE AUTO0.10.0 - 0.1 10 3/uLTBHIMMATURE GRANULOCYTES ABS AUTO0.05(H)0.00 - 0.03 10 3/uLTBHSpecimen (Source)Anatomical Location / LateralityCollection Method / VolumeCollection TimeReceived Time04/06/2025 9:21 AM EDT1 9:23 AM EDT Narrative [facility] - 04/06/2025 9:33 AM EDT Authorizing ProviderResult TypeResult StatusCorey Jaden DOCLINISYNCFinal Result Performing OrganizationAddressCity/State/ZIP CodePhone Number [facility] * ALL BASIC METABOLIC PANEL (04/06/2025 9:21 AM EDT)ComponentValueRef RangeTest MethodAnalysis TimePerformed AtPathologist ZfqueupwhFJVIMW763764 - 145 mmol/L TBHPOTASSIUM3.73.5 - 5.1 mmol/PFKRYIGPCSXG99526 - 107 mmol/LTBHCARBON DIOXIDE 26.721.0 - 32.0 mmol/LTBHANION GAP11.2ELMTBRMCRA4161 - 106 mg/dLTBHBLOOD UREA TBFUITXE75.07.0 - 18.0 mg/dLTBHCREATININE0.830.55 - 1.02 mg/dLTBHTBH EGFR-AF NAURUAN>60>=60 mL/min/1.73m 2TBHTBH EGFR-NON AF NAURUAN>60>=60 mL/min/1.73m 2TBHBUN CREATININE RATIO21.3HFZOGCCUWO8.58.5 - 10.1 mg/dLTBHSpecimen (Source) Anatomical Location / LateralityCollection Method / VolumeCollection Time Received Time04/06/2025 9:21 AM EDT1 9:23 AM EDT Narrative [facility] - 04/06/2025 10:28 AM EDT Authorizing ProviderResult TypeResult StatusCorey Jaden DOCLINISYNCFinal Result Performing OrganizationAddressCity/State/ZIP CodePhone Number [facility]H * ECG 12-LEAD (04/06/2025 7:16 AM EDT)Anatomical RegionLateralityModalityOther Specimen (Source)Anatomical Location / LateralityCollection Method / Volume Collection TimeReceived Time04/06/2025 7:16 AM EDT Narrative 04/06/2025 6:26 PM EDT [facility] ?[address] ? [place] [address] ? Electrocardiograph Report ? Signed ? Patient: VIKKIOFF,TORY J ?MR#: [id number] ?? : 1985 ?Acct:[id number] ?? Age/Sex: 39 / F ?ADM Date: 04/06/25 ?? Loc: PST ? Attending Dr: Harsh Stanley D.O. ? Ordering Physician: Harsh Stanley D.O. ?? Date of Service: 04/06/25 ?? Procedure(s): ECG 12 lead ?? Accession Number(s): [id number] ? cc: ?[facility] ? Test Date: ?2025-04-06 ?? Pat Name: ? TORY PEOPLES ?Department: ? Room: ? - ?? Gender: ? Female ? 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 : ?1985 ? Requested By: HARSH STANLEY ?? Order Number: [id number] ?Reading MD: ?? RONALD ??Osorio MOURA ? Measurements ?? Intervals ?[place] ? Rate: ? 89 ? P: ?33 ?? DE: ? 162 ?QRS: ?75 ?? QRSD: ? 95 ? T: ?48 ?? QT: ? 357 ? QTc: ?436 ? Interpretive Statements ?? SINUS RHYTHM ?? Normal ECG ?? Compared to ECG 09/01/2024 10:39:41 ?? No significant changes ?? Electronically Signed On 04-06-2025 18:26:03 EDT by RONALD ??Osorio MOURA ? Dictated By: ?RONALD MOURA ? Signed By: ?04/06/25 1826 ? DD/ 0716 ? TD/TT: ? Research And Development Scientist: Procedure Note Radiology, Radiologist, MD - 04/06/[address] [address] Electrocardiograph Report Signed Patient: TORY PEOPLES R#: [id number] : 1985Acct:[id number] Age/Sex: 39 / FADM Date: 04/06/25 Loc: PST Attending Dr: Harsh Stanley D.O. Ordering Physician: Harsh Stanley D.O. 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 Measurements Intervals [place] Rate: 89 P: 33 DE: 162 QRS: 75 QRSD: 95 T: 48 QT: 357 QTc: 436 Interpretive Statements SINUS RHYTHM Normal ECG Compared to ECG 09/01/2024 10:39:41 No significant changes Electronically Signed On 04-06-2025 18:26:03 EDT by RONALD MOURA M.D. Dictated By: RONALD MOURA Signed By:04/06/25 1826 DD/ 0716 TD/TT: Research And Development Scientist: Authorizing ProviderResult TypeResult StatusCoreiram Stanley DOCLINISYNC IMAGINGFinal Result from Last 3 Months Insurance
--- OUTSIDE RECORDS SUMMARY | 2025-04-29 11:45 | XMS_ITS | Encounter Summary ---
Author Organization [facility] Address [address] [place] [address] Care Team Providers Care Molded Candles Wicker Name Role Phone Unavailable Primary Care Provider Unavailabl e Encounter Details DateTypeDepartmentCare Team (Latest Contact Info)Wfbaxhprscz80/20/2025bstract SANDRO MARTINEZ [address] [facility] [address] [place] [address] Wendy Bowser MA Social History Tobacco UseTypesPacks/DayYears UsedDateSmoking Tobacco: Every DayCigarettes Smokeless Tobacco: NeverAlcohol UseStandard Drinks/WeekCommentsNever0 (1 standard drink = 0.6 oz pure alcohol)CommentsNoSex and Gender InformationValueDate RecordedSex Assigned at ZelbtFiljel16/26/2024 7:14 PM EDT Legal MixGqgwow07/15/2023 11:47 PM EDTGender DfickuupNopczw07/26/2024 7:14 PM EDTSexual OrientationNot on filedocumented as of this encounter Plan of Treatment DateTypeDepartmentCare Team (Latest Contact Info)Qtoamorbjkg90/26/2025 9:30 AM ESTOffice Visit NOMAdan MARTINEZ [address] [facility] [place] [address] Celeste Camacho PA [address] [facility] [place] [address] 12/14/2025 2:00 PM EDTOffice Visit NOMAdan MARTINEZ [address] [facility] [place] [address] Jaden, Aurelio, [address] [place] [address] documented as of this encounter Visit Diagnoses Not on filedocumented in this encounter
--- OUTSIDE RECORDS SUMMARY | 2025-04-29 11:45 | XMS_ITS | Patient Health Record ---
Author Organization [facility] Address [address] [place] [address] Care Team Providers Care Float Remover Name Role Phone Dr. Manny Singh Primary Care Provider Earlene Trevino Unavailable [phone] Marisela Holt Unavailable [phone] Yvonne Cox Unavailable [phone] Selene Izabela Unavailable [phone] Allergies Allergen (clinical drug ingredient) Drug/Non Drug Allergy documented on EMR Reaction Allergy Type Onset Date Status milk (uncoded)lactose intolerantAllergyActiveStrawberriesrashAllergyActive Reason For Referral No Information Medications Medication SIG (Take, Route, Frequency, Duration) Notes Start Date End Date Status hydroCHLOROthiazide 12.5 MG Tablet 1 tablet Oral Once a day; Duration: 30 days ActiveEscitalopram Oxalate 10 MG TabletTAKE 1 TABLET (10 MG TOTAL) BY MOUTH IN THE MORNING Oral; Duration: 30 DaysActiveEscitalopram Oxalate 10 MG Tablet1 tablet Orally Once a day; Duration: 30 daysActiveAbilify 5 MG Tablet1 tablet Orally Once a day; Duration: 30 days5Activevitamin D7TnvtnsIfstlzehnpfw HCl 180 MG Tablet1 tablet Oral daily; Duration: 30 days6Active Lisinopril 20 MG Tablet1 tablet Oral Once a day; Duration: 30 daysActive Methocarbamol 750 MG Tablet 1 tablet Orally 3 times a day; Duration: 30 days As needed ActiveMeloxicam 15 MG Tablet1 tablet Oral Once a day; Duration: 30 daysActive traZODone HCl 100 MG Tablet1 tablet at bedtime Orally daily; Duration: 30 days ActiveVitamin D3 50 MCG (2000 UT) Capsule1 capsule Orally Once a day; Duration: 30 days/ctiveQUEtiapine Fumarate 100 MG Tablet1 tablet Orally nightly; Duration: 30 daysActive Social History Tobacco Use: Social History Observation Description Date Details (start date - stop date) Current Smoker NA - NA Sex Assigned At : Social History Observation Description Sex Assigned At Female Social History GeneralSocial InfoQuestionAnswerNotesDepression Screening (PHQ-9):Little interest or pleasure in doing thingsNot at allFeeling down, depressed, or hopelessNot at allTrouble falling or staying asleep, or sleeping too muchNot at allFeeling tired or having little energyNearly every dayPoor appetite or overeatingNot at allFeeling bad about yourself-or that you are a failure or have let yourself or your family downNot at allTrouble concentrating on things, such as reading the newspaper or watching televisionNot at allMoving or speaking so slowly that other people could have noticed. Or the opposite being so fidgetyor restless that you have been moving around a lot more than usualNot at all Thoughts that you would be better off , or of hurting yourself in some way Not at allTotal Radph4JathqlealdoguTlcpsio DepressionDrug/Alcohol:Social Info QuestionAnswerNotesAUDIT-C (Standard)Did you have a drink containing alcohol in the past year?XsMorsyi8BvdocurjqbwlgdUuvoxysfTihajsa Use:Social InfoQuestion AnswerNotesTobacco Control (Standard)Tobacco use:Current smoker? How often do you smoke cigarettes?Every day? How many cigarettes a day do you smoke?11-20? How soon after you wake up do you smoke your first cigarette?Within 5 minutes? Are you interested in quitting?Thinking about quitting Problems Problem Type SNOMED Code ICD Code Onset Dates Problem Status W/U Status Risk Notes Problem Tobacco user (636823974) Nicotin e dependence, unspecified, uncomplicated (F17.200) ActiveconfirmedProblemInsomnia (252166273)Insomnia (G47.00)Activeconfirmed ProblemVitamin D deficiency (32877490)Vitamin D deficiency (E55.9)Active confirmedProblemHypertension (83326735)Hypertension (I10)ActiveconfirmedProblem Allergic rhinitis (88721393)Allergic rhinitis (J30.9)ActiveconfirmedProblem Depressed bipolar I disorder (15761462)Bipolar depression (F31.30)Active confirmedProblemNephrolithiasis (67213323)Nephrolithiasis (N20.0)03/13/2019 ActiveconfirmedProblemExcessive and frequent menstruation (146609344)Menorrhagia with regular cycle (N92.0)4ActiveconfirmedProblemEndometriosis (073948168)Endometriosis (N80.9)5ActiveconfirmedProblemDisorder of mineral metabolism (36889507)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)09/06/2016Active confirmed Vital Signs Heart Rate 96 /min 03/04/2025 Ckrogcxcinz41.6 degrees Nftggdfiom63/03/2688Nkfrfsfu77 %03/04/2025lood pressure gotsyungq75 mm Hg03/04/20254300Cvywvk17 in03/04/2025lood pressure ydxkyqld465 mm Hg 03/04/20251122Vbngyg364.8 lbs03/04/2025BMI42.85 kg/m203/04/2025 Encounters Encounter Location Date Provider Diagnosis [address] [address] 03/04/2025 Yvonne Cox Hypertension I10 ; Bipolar depression F31.30 ; Nicotine dependence, unspecified, uncomplicated F17.200 ; Allergic rhinitis J30.9 ; Muscle spasms of neck M62.838 ; Insomnia G47.00 and Vitamin D deficiency E55.9 [facility] [address] [address] 08/07/2024 Marisela Holt Encounter for dental examination and cleaning with abnormal findings Z01.21 ; Other dental procedure status Z98.818 ; Acute gingivitis, plaque induced K05.00 and Dental caries on pit and fissure surface penetrating into dentin K02.52 [facility] [address] [place] [address] 10/16/2024 Marisela Holt Dental caries on pit and fissure surface penetrating into dentin K02.52 Assessments Encounter Date Diagnosis (ICD Code) Assessment Notes Treatment Notes Treatment Clinical Notes Section Notes 03/04/2025 Hypertension (ICD-10 - I10) Blood pressure is 125/80. Continue lisinopril and HCTZ08/07/2024Encounter for dental examination and cleaning with abnormal findings (ICD-10 - Z01.21) 03/04/2025ipolar depression (ICD-10 - F31.30)Patient reports moods have been stable. Depression scoring is zero today10/16/2024Dental caries on pit and fissure surface penetrating into dentin (ICD-10 - K02.52)08/07/2024Other dental procedure status (ICD-10 - Z98.818)03/04/2025llergic rhinitis (ICD-10 - J30.9) Patient reports allergic rhinitis symptoms are controlled with fexofenadine 180 mg oral daily.03/04/2025Nicotine dependence, unspecified, uncomplicated (ICD-10 - F17.200)Discussed smoking cessation today. She is not interested at this time. 08/07/2024ute gingivitis, plaque induced (ICD-10 - K05.00)08/07/2024Dental caries on pit and fissure surface penetrating into dentin (ICD-10 - K02.52) 03/04/2025Muscle spasms of neck (ICD-10 - M62.838)03/04/2025Insomnia (ICD-10 - G47.00)Reports sleeping through the night.03/04/2025Vitamin D deficiency (ICD-10 - E55.9)03/04/2025OtherBody Mass Index: Care Instructions material was published, Body Mass Index: Care Instructions material was printed Plan Of Treatment Next Appt Details Provider Name:Izabela Morton, 11:30:00 AM, [address] [place], [address], Provider Name:Earlene Uriel , 06/15/2025 08:00:00 AM, [address] [place], [address], Provider Name:Yvonne pollard, 09/01/2025 02:30:00 PM, [address] [place], [address], Insurance Providers Payer Name Payer Address Payer Phone Subscriber Number Group Number Insured Name Patient Relationship to Insured Coverage Start Date Coverage End Date z[employer]-termed 08/01/22 [address] [place] [address] [id number] Chastity [employer] - patient is the [id number] Medical [place] MedicaidPO [address] [place] [id number] Chastity [employer]SU - patient is the czfjicb1208/02/2022z[address]ICA[address] [facility] after [employer]-termed 08/01/22[address] [place] [id number] FELDER - patient is the [id number] [facility] [place] BCBSP[address] [place] [id number], SAMANTHASelf - patient is the znxgysu1108/02/2022zDENTAL DQ [employer]-termed 08/01/22[address] [place] [id number] Chastity HSU - patient is the [id number] MEDICAID [facility] after [employer]termed 08/01/22[address] [place] [address] [phone], SAMANTHASelf - patient is the insured ental [place] DQ Terminated 07/01/24[address] [place] [id number], SAMANTHASelf - patient is the chnvmib9108/02/2022ental Wrap [facility] [place] BCBS Termed [address] [place] [id number], SAMANTHASelf - patient is the ndwmsai0908/02/2022QBuy[address] [address] [place] [id number] - patient is the ebwbizd7507/02/2024 Medical (General) History Medical History History ICD Code Nephrolithiasis depressionanxietyPTSDSurgical History Surgery Date(Month/Year) childbirth x3 LithotripsyHospitalization History Reason Date(Month/Year) see surgeries
--- OUTSIDE RECORDS SUMMARY | 2025-04-29 11:45 | XMS_ITS | Encounter Summary ---
Author Organization [facility] Address [address] [facility] [place] [address] Care Team Providers Care Assistant Principal Name Role Phone Unavailable Primary Care Provider Unavailabl e Encounter Details DateTypeDepartmentCare Team (Latest Contact Info)Ppkcmjwiknh88/22/2025amboo flowsheet [facility] [address] [place] [address] Celeste Camacho PA [address] [place] [address] Social History Tobacco UseTypesPacks/DayYears UsedDateSmoking Tobacco: Every DayCigarettes Smokeless Tobacco: NeverAlcohol UseStandard Drinks/WeekCommentsNever0 (1 standard drink = 0.6 oz pure alcohol)CommentsNoSex and Gender InformationValueDate RecordedSex Assigned at UctcwXtaktm47/26/2024 7:14 PM EDT Legal UwbNuceem24/15/2023 11:47 PM EDTGender JbhdasplGgykms00/26/2024 7:14 PM EDTSexual OrientationNot on filedocumented as of this encounter Plan of Treatment DateTypeDepartmentCare Team (Latest Contact Info)Anqrqvopvew98/26/2025 9:30 AM ESTOffice Visit [facility] [address] [place] [address] Celeste Camacho PA [address] [facility] [address] [place], [place] [id number] 12/14/2025 2:00 PM EDTOffice Visit [facility] [address] [place] [address] Aurelio Stanley DO [address] [place], [place] [id number] documented as of this encounter Visit Diagnoses Not on filedocumented in this encounter
--- OUTSIDE RECORDS SUMMARY | 2025-04-29 11:46 | XMS_ITS | Patient Health Record ---
Author Organization [facility] [place] Address [address] [place] [address] Care Team Providers Care Director Of Women'S Services Name Role Phone None, Unknown or Primary [...] End Date [employer] [place] MEDICA[place] [address] [address] [place] [address] [id number] Tim Peopleslf - patient is the [id number] 2022 Medical (General) History Medical History History ICD Code Ingrowing nail L60.0 Acute paronychia of toe of right foot L0 3.031 Abscess of right foot L02.611
[2025-04-29 11:48] LABS: Glucose Urine UA NEGATIVE (NEGATIVE)
--- NOTE | 2025-04-29 11:48 | ED.GENADUL1 ---
HPI HPI - General Adult General Chief complaint: Abdominal Pain Stated complaint: POST SURGERY PAIN/BLEEDING -HYSTERECTOMY 2 WEEKS A Time Seen by Provider: 04/29/25 11:41 Source: patient and family Mode of arrival: walk-in Limitations: no limitations History of Present Illness HPI narrative: 39-year-old female presented to the emergency department for a chief complaint of abdominal pain and vaginal bleeding. She had an abdominal hysterectomy without oophorectomy 2 weeks ago. In the past 2 days she has used 2 pads. She complains of some pain in the left lower part of her abdomen. No fever or vomiting. Related Data Home Medications ?Medication ?Instructions ?Recorded ?Confirmed escitalopram oxalate 10 mg tablet 10 mg PO DAILY 05/08/23 04/15/25 hydrochlorothiazide 12.5 mg tablet 12.5 mg PO DAILY 05/08/23 04/15/25 quetiapine 100 mg tablet 100 mg PO BEDTIME 05/08/23 04/15/25 sumatriptan succinate 50 mg tablet 50 mg PO Q2H PRN migraine headache 05/08/23 04/15/25 aripiprazole 5 mg tablet 5 mg PO DAILY 09/01/24 04/15/25 ascorbic acid (vitamin C) 1,000 mg 1 g PO DAILY 09/01/24 04/15/25 capsule cholecalciferol (vitamin D3) 50 2,000 unit PO DAILY 09/01/24 04/15/25 mcg (2,000 unit) capsule fexofenadine 180 mg tablet 180 mg PO DAILY 09/01/24 04/15/25 meloxicam 15 mg tablet 15 mg PO DAILY 09/01/24 04/15/25 lisinopril 20 mg tablet 20 mg PO DAILY 04/06/25 04/15/25 trazodone 100 mg tablet 100 mg PO QPM 04/06/25 04/15/25 Previous Rx's ?Medication ?Instructions ?Recorded ibuprofen 800 mg tablet 800 mg PO Q8H PRN pain 14 days #40 04/16/25 tabs oxycodone-acetaminophen 5 mg-325 1 tab PO Q6H PRN pain 5 days #20 04/16/25 mg tablet (Percocet) tabs acetaminophen 300 mg-codeine 30 mg 1 tab PO Q6H PRN pain 3 days #10 04/29/25 tablet tabs Allergies Allergy/AdvReac Type Severity Reaction Status Date / Time Penicillins Allergy Severe Hives Verified 04/29/25 11:29 strawberry Allergy throat Verified 04/29/25 11:29 swelling amoxicillin AdvReac Severe Hives Verified 04/29/25 11:29 lactose AdvReac Abdominal Verified 04/29/25 11:29 Pain Opioid HPI Opioid Management Most Recent Opioid Data: Last Pain Scale 6 04/16/25, 08:20 Review of Systems ROS Narrative A ten point review of systems is negative except as noted above. PFSH PFSH Medical History (Updated 04/29/25 @ 12:54 by Perez Contreras MD) Pelvic pain ?R10.20 - (ICD-10) Endometriosis ?N80.9 - Endometriosis, unspecified (ICD-10) Dysmenorrhea ?N94.6 - Dysmenorrhea, unspecified (ICD-10) Dyspareunia Menorrhagia ?N92.0 - Excessive and frequent menstruation with regular cycle (ICD-10) Ectopic ?O00.90 - Unspecified ectopic without intrauterine (ICD-10) PTSD (post-traumatic stress disorder) ?F43.10 - Post-traumatic stress disorder, unspecified (ICD-10) Depression ?F32.A - Depression, unspecified (ICD-10) Panic attacks ?F41.0 - Panic disorder [episodic paroxysmal anxiety] (ICD-10) Anxiety ?F41.9 - Anxiety disorder, unspecified (ICD-10) COVID-19 ?U07.1 - COVID-19 (ICD-10) Migraine ?G43.909 - Migraine, unspecified, not intractable, without status migrainosus (ICD-10) Kidney stones ?N20.0 - Calculus of kidney (ICD-10) Seasonal allergies ?J30.2 - Other seasonal allergic rhinitis (ICD-10) GERD (gastroesophageal reflux disease) ?K21.9 - Gastro-esophageal reflux disease without esophagitis (ICD-10) Hypertension ?I10 - Essential (primary) hypertension (ICD-10) History of blood transfusion (09/16/17) ?Z92.89 - Personal history of other medical treatment (ICD-10) hemorrhage (09/16/17) ?O72.1 - Other immediate hemorrhage (ICD-10) Surgical History (Updated 04/06/25 @ 08:28 by Milvia Yan, POLE CUTTER) H/O laparoscopy (09/12/24) ?Z98.890 - Other specified postprocedural states (ICD-10) S/P ureteral stent placement ?Z96.0 - Presence of urogenital implants (ICD-10) History of tubal ligation ?Z98.51 - Tubal ligation status (ICD-10) History of section ?Z98.891 - History of uterine scar from previous surgery (ICD-10) Family History (Updated 09/01/24 @ 10:22 by Milvia Yan NP) Other Family history of cancer Family history of diabetes mellitus Family history of myocardial infarction Family history of renal failure Social History (Updated 09/12/24 @ 09:37 by Angy Iqbal) Within the past year, how often did you have a drink containing alcohol: never Score interpretation: A score less than 3 is consistent with normal alcohol consumption. 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 Skin:Warm, dry, no pallor noted.There is no rash noted. Head:Normocephalic, atraumatic Eye: Normal conjunctiva, no drainage Ears, Nose, Mouth, and Throat: oral mucosa is moist. Nares patent. Cardiovascular:Regular Rate and Rhythm Respiratory:Patient is in no distress, no accessory muscle use, lungs are clear to auscultation, no wheezing, rales or rhonchi Back:non-tender GI: Soft and nondistended. Incision is healing quite well with no dehiscence or erythema or drainage. She has some tenderness in the left lower abdomen. Musculoskeletal: The patient has no evidence of calf tenderness, no pitting edema, symmetrical pulses noted bilaterally Neurological:A&O, normal speech Psychiatric:Cooperative Constitutional Vital Signs, click to edit/add: Last Vital Signs Temp 98.8 F 04/29/25 11:26 Pulse 117 H 04/29/25 11:26 Resp 18 04/29/25 11:26 BP 133/95 H 04/29/25 11:26 Pulse Ox 100 04/29/25 11:26 O2 Del Method Room Air 04/29/25 11:26 Course Vital Signs Vital signs: Vital Signs Temperature 98.8 F 04/29/25 11:26 Pulse Rate 117 H 04/29/25 11:26 Respiratory Rate 18 04/29/25 11:26 Blood Pressure 133/95 H 04/29/25 11:26 Pulse Oximetry 100 04/29/25 11:26 Oxygen Delivery Method Room Air 04/29/25 11:26 Temperature 98.8 F 04/29/25 11:26 Pulse Rate 117 H 04/29/25 11:26 Respiratory Rate 18 04/29/25 11:26 Blood Pressure 133/95 H 04/29/25 11:26 Pulse Oximetry 100 04/29/25 11:26 Oxygen Delivery Method Room Air 04/29/25 11:26 Medical Decision Making MDM Narrative Medical decision making narrative: Her workup is negative. White blood cell count is down significantly from 13 days ago and her hemoglobin is up. Surgical wound looks appropriate, no evidence of wound dehiscence or infection. She has only used 2 pads in 2 days. The patient was discussed with Dr. Goldman, covering Dr. Stanley. The patient will be discharged home and imaging is not indicated. She was prescribed 10 Tylenol 3 tablets. Treatment diagnosis and follow-up were discussed with the patient. Differential Diagnosis Differential Diagnosis: Wound dehiscence, wound infection, postoperative pain Lab Data Lab results reviewed: Yes I reviewed the patient's lab results Labs: Lab Results 04/29/25 04/29/25 Range/Units 11:33 11:55 WBC 12.4 H (4.0-11.0) 10^3/uL RBC 4.37 (4.20-5.40) 10^6/uL Hgb 12.6 (12.0-16.0) g/dL Hct 38.3 (36.0-48.0) % MCV 87.6 (81.0-99.0) fL MCH 28.8 (26.7-34.0) pg MCHC 32.9 (29.9-35.2) g/dL RDW 14.2 (11.0-15.0) % Plt Count 278 (150-450) 10^3/uL MPV 11.5 (9.5-13.5) fL Neut % (Auto) 75.2 H (43.0-75.0) % Lymph % (Auto) 16.8 L (20.5-60.0) % Curry % (Auto) 3.9 (1.7-12.0) % Eos % (Auto) 2.9 (0.9-7.0) % Baso % (Auto) 0.6 (0.2-2.0) % Neut # (Auto) 9.3 H (1.4-6.5) 10^3/uL Lymph # (Auto) 2.1 (1.2-3.8) 10^3/uL Curry # (Auto) 0.5 (0.3-0.8) 10^3/uL Eos # (Auto) 0.4 (0.0-0.7) 10^3/uL Baso # (Auto) 0.1 (0.0-0.1) 10^3/uL Abs Immat Gran (auto) 0.08 H (0.00-0.03) 10^3/uL Imm/Tot Granulo (auto) 0.6 H (0.0-0.5) % Sodium 138 (136-145) mmol/L Potassium 3.8 (3.5-5.1) mmol/L Chloride 104 (98-107) mmol/L Carbon Dioxide 25.7 (21.0-32.0) mmol/L Anion Gap 12.1 BUN 13.0 (7.0-18.0) mg/dL Creatinine 0.80 (0.55-1.02) mg/dL Est GFR ( Amer) >60 (>=60 mL/min/1.73m^2) Est GFR (Non-Af Amer) >60 (>=60 mL/min/1.73m^2) BUN/Creatinine Ratio 16.2 Glucose 125 H (74-106) mg/dL Calcium 9.0 (8.5-10.1) mg/dL Urine Color Lt. yellow (YELLOW) Urine Clarity Clear (CLEAR) Urine pH 6.0 (5.0-9.0) Ur Specific [place] 1.020 (1.005-1.025) Urine Protein Negative (NEG/TRACE) mg/dL Urine Glucose (UA) Negative (NEGATIVE) mg/dL Urine Ketones Negative (NEGATIVE) mg/dL Urine Occult Blood Large A (NEGATIVE) Urine Nitrite Negative (NEGATIVE) Urine Bilirubin Negative (NEGATIVE) Urine Urobilinogen 0.2 (0.2-1.0) EU/dL Ur Leukocyte Esterase Small A (NEGATIVE) Urine RBC 5-10 A (0-2) #/HPF Urine WBC 5-10 A (NONE SEEN) #/HPF Ur Squamous Epith Cells Moderate A (NONE/RARE) #/LPF Urine Crystals None seen (None Seen) #/HPF Urine Bacteria Small A (NONE SEEN) #/HPF Urine Casts None seen (NONE SEEN) #/LPF Urine Mucus None seen (NONE SEEN) Ur Culture Indicated? Yes-[facility] [place] Discharge Chief Complaint: Abdominal Pain Clinical Impression: Post-operative pain Patient Disposition: Home, Self-Care Time of Disposition Decision: 12:54 Condition: Good Mode of Transportation: Private Vehicle Prescriptions / Home Meds: New acetaminophen-codeine 300-30 mg tablet 1 tab PO Q6H PRN (Reason: pain) 3 Days Qty: 10 0RF No Action lisinopril 20 mg tablet 20 mg PO DAILY trazodone 100 mg tablet 100 mg PO QPM ibuprofen 800 mg tablet 800 mg PO Q8H PRN (Reason: pain) 14 Days Qty: 40 0RF oxycodone-acetaminophen [Percocet] 5-325 mg tablet 1 tab PO Q6H PRN (Reason: pain) 5 Days Qty: 20 0RF Rx Instructions: g89.18 hydrochlorothiazide 12.5 mg tablet 12.5 mg PO DAILY escitalopram oxalate 10 mg tablet 10 mg PO DAILY quetiapine 100 mg tablet 100 mg PO BEDTIME sumatriptan succinate 50 mg tablet 50 mg PO Q2H PRN (Reason: migraine headache) aripiprazole 5 mg tablet 5 mg PO DAILY cholecalciferol (vitamin D3) 50 mcg (2,000 unit) capsule 2,000 unit PO DAILY fexofenadine 180 mg tablet 180 mg PO DAILY meloxicam 15 mg tablet 15 mg PO DAILY ascorbic acid (vitamin C) 1,000 mg capsule 1 g PO DAILY Print Language: Swazi Instructions: Pain Management After Surgery (DC) Referrals: RONY SHARMA [Primary Care Provider, Unknown] - 1 week
--- OUTSIDE RECORDS SUMMARY | 2025-04-29 11:58 | XMS_ITS | CCD ---
Author Organization [facility] Care Team Providers Care Prison Warden Name Role Phone Gerson Sheppard Admitting Unavailable [...] Unavailable RONY COX Referring Unavailable COX, RONY J Primary Care Unavailable COX, RONY Aguirre Attending Unavailable COX, RONY Aguirre Referring Unavailable COX, RONY J Primary Care Unavailable COX, RONY J Referring Unavailable COX, RONY J Primary Care Unavailable COX, RONY J Attending Unavailable COX, RONY J Referring Unavailable COX, RONY J Primary Care Unavailable COX, RONY J Referring Unavailable COX, RONY J Primary Care Unavailable COX, RONY J Referring Unavailable COX, RONY J Primary Care Unavailable COX, RONY J Referring Unavailable COX, RONY J Primary Care Unavailable 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, Rony Aguirre Primary Care Provid er Unavailable Primary Care Provider UnavailAurelio Lemon DO Attending Provider [phone] Jaden, Aurelio Attending Unavailable Jaden, Aurelio Admitting Unavailable AURELIO STANLEY Attending Unavailable JADEN, AURELIO Attending Unavailable JADEN, AURELIO Attending Unavailable JADEN, AURELIO Attending Unavailable CELESTE CAMACHO Attending Unavailable Allergies Allergy ClassificationReported Allergen(s)Allergy TypeDate of OnsetReaction(s) Facility (1 source)PenicillinDrug AllergyThe [facility] (20 sources)Penicillins; Translations: [PENICILLINS]Propensity to adverse reactions to zzke25-92-6565TfvOaf[facility] (17 sources)PenicillinsDrug Dltaklcffzh83-88-7202IcgixhdUBBN Healthcare (9 sources)PenicillinsPropensity to adverse reactions to eqvd28-62-4544BxyOyohct [facility] System Medications Current Medications MedicationDrug Class(es)DatesSig (Normalized)Sig (Original)ARIPiprazole 5 mg oral tablet (20 sources)Atypical AntipsychoticStart: 06-14-2023 End: 17-00-2616vzbm 1 tablet by mouth in the morningARIPiprazole (Abilify) 5 MG tablet Take 1 tablet by mouth in the morning. 10/15/2023 ActiveStart: 02-21-2023 Abilify Refills(s) 0 Start Date: 02/21/23 Status: OrderedPeridex (17 sources)Start: 49-78-6731Mnuizbm Refill(s) 0 Start Date: 02/21/23 Status: OrderedStart: 01-08-2023 End: 71-29-9889eamc 15 mL by mouth in the morningchlorhexidine (PERIDEX) 0.12 % solution Indications: Canker sores oral Apply 15 mL to the mouth or throat in the morning and 15 mL before bedtime. 120 mL 1 01/08/2023 09/08/2024 Discontinued (Therapycompleted)cholecalciferol 0.05 mg oral capsule (20 sources)Vitamin DStart: 19-31-5761karw 1 capsule by mouth once in the morningcholecalciferol, vitamin D3, (D3-2000) 2,000 units capsule Indications: Vitamin D deficiency Take 1capsule (2,000 Units total) by mouth in the morning. 30 each 11 07/15/2024 ActiveStart: 06-14-2023 End: 59-20-1665iohi 1 capsule by mouth in the morningcholecalciferol (Vitamin D- 3) 125 MCG (5000 UT) capsule Take 1 capsule by mouth in the morning. 09/12/2023 Activedocosahexaenoic acid 120 mg / eicosapentaenoic acid 180 mg oral capsule (12 sources)Start: 06-14-2023 End: 77-09-5779ubdk 1 capsule by mouth twice dailyomega-3 (Fish Oil) 1000 MG capsule take 1 capsule by mouth twice a day as directed 06/14/2023 03/19/2025 Discontinuedescitalopram 10 mg oral tablet (20 sources)Serotonin Reuptake InhibitorStart: 05-01-2023 End: 28-74-3126puxd 1 tablet by mouth in the morningescitalopram (Lexapro) 10 MG tablet Take 10 mg by mouth in the morning. 05/01/2023 ActiveStart: 02-21-2023 Lexapro Refills(s) 0 Start Date: 02/21/23 Status: Orderedfexofenadine hydrochloride 180 mg oral tablet (20 sources)Histamine-1 Receptor AntagonistStart: 06-14-2023 End: 99-43-3441gxuo 1 tablet by mouth in the morningfexofenadine (Shelly) 180 MG tablet Take 180 mg by mouth in the morning. 06/14/2023 ActiveStart: 81-15-6322Rszljeu Refills(s) 0 Start Date: 02/21/23 Status: Ordered hydroCHLOROthiazide 12.5 mg oral tablet (20 sources)Thiazide DiureticStart: 06-14-2023 End: 56-32-5880vdhy 1 tablet by mouth in the morninghydroCHLOROthiazide (HYDRODiuril) 12.5 MG tablet Take 12.5 mg by mouth in the morning. 06/14/2023 Ac tiveStart: 58-58-0178dxipwtiitjiaxymbbqv 12.5 mg Cap Refills(s) 0 Start Date: 02/21/23 Status: OrderedhydrOXYzine pamoate 50 mg oral capsule (20 sources)AntihistamineStart: 05-30-2023 End: 17-56-3369wblq 1 capsule by mouth twice dailyhydrOXYzine pamoate (Vistaril) 50 MG capsule take 1 capsule by mouth twice a day if needed 10/15/2023 Active Start: 59-50-0996Fmcebdrf Refills(s) 0 Start Date: 02/21/23 Status: Ordered lisinopril 20 mg oral tablet (12 sources)Angiotensin Converting Enzyme InhibitorStart: 43-77-2845rcps 1 tablet by mouth in the morninglisinopriL (PRINIVIL,ZESTRIL) 20 mg tablet Indications: Benign essential HTN Take 1 tablet (20 mg total) by mouth in the morning. 30 tablet 6 09/08/2024 Activemeloxicam 15 mg oral tablet (20 sources)Nonsteroidal Anti-inflammatory DrugStart: 06-14-2023 End: 08-01-5413mjnv 1 tablet by mouth in the morningmeloxicam (Mobic) 15 MG tablet Take 1 tablet by mouth in the morning. 09/12/2023 Activemethocarbamol 750 mg oral tablet (20 sources)Muscle RelaxantStart: 06-14-2023 End: 82-12-7906evefgidzjwqul (Robaxin) 750 MG tablet Take 750 mg by mouth in the morning and 750 mg at noon and 750 mg in the evening. 10/15/2023 Active SUMAtriptan 50 mg oral tablet (20 sources)Serotonin-1b and Serotonin-1d Receptor AgonistStart: 05-01-2023 End: 94-05-7996ZXRKpladgmm (Imitrex) 50 MG tablet take 1 tablet by mouth if needed AT ONSET OF HEADACHE may repeat... (REFER TO PRESCRIPTION NOTES). 05/01/2023 ActiveStart: 58-79-3534czjxjkrnffb Refills(s) 0 Start Date: 02/21/23 Status: OrderedtraZODone hydrochloride 100 mg oral tablet (17 sources)Serotonin Reuptake InhibitorStart: 10-13-2024 End: 37-39-9329osrj 1 tablet by mouth once dailytraZODone (DESYREL) 100 mg tablet Indications: Insomnia, unspecified type TAKE 1 TABLET BY MOUTH EVERY DAY AT NIGHT 30 tablet 3 01/30/2025 ActiveVitamin D3 5000 intl units (125 mcg) oral tab (1 source)Start: 51-97-4999Xuzmxek D3 5000 intl units (125 mcg) oral tab Refills(s) 0 Start Date: 02/21/23 Status: Ordered Completed/Discontinued Medications MedicationDrug Class(es)DatesSig (Normalized)Sig (Original)Fish Oils (18 sources)Start: 06-09-2024 End: 31-58-6272epfb 1 capsule by mouth twice dailyFish OiL 300-1,000 mg capsule Indications: Mineral metabolism disorder take 1 capsule by mouth twice a day as directed 30 each 06/09/2024 09/08/2024 Discontinued (Therapy completed)Start: 53-73-3686thrz 1 capsule by mouth twice dailyFish OiL 300-1,000 mg capsule Indications: Mineral metabolism disorder take 1 capsule by mouth twice a day as directed 30 each 06/09/2024 ActiveStart: 06-14-2023 End: 87-56-2547iikt 1 capsule by mouth twice dailyFish OiL 300-1,000 mg capsule Indications: Mineral metabolism disorder take 1 capsule by mouth twice a day as directed 30 each 11 06/14/2023 06/09/2024 Discontinued (Reorder)Start: 33-03-9734vscx 1 capsule by mouth twice dailyFish OiL 300-1,000 mg capsule Indications: Mineral metabolism disorder take 1 capsule by mouth twice a day as directed 30 each 11 06/14/2023 ActiveStart: 81-96-1449Eddt Oil Refill(s) 0 Start Date: 02/21/23 Status: Orderedfluticasone propionate 0.05 mg/actuat metered dose nasal spray (16 sources)CorticosteroidStart: 06-14-2023 End: 53-53-7311tvfr 2 spray(s) nasal route in the morningfluticasone (Flonase) 50 MCG/ACT nasal spray Administer 2 sprays into affected nostril(s) in the mor esteban. 06/14/2023 08/19/2024 Discontinued (Other)Start: 06-14-2023 End: 16-77-7701hyps 2 spray(s) nasal route in the morningfluticasone propionate (FLONASE) 50 mcg/actuation nasal spray Indications: Chronic seasonal allergic rhinitis Administer 2 sprays into each nostril in the morning. 16 g 06/09/2024 07/14/2024 Discontinued (Therapy completed)Start: 14-32-7345Ljrzvtg Refill(s) 0 Start Date: 02/21/23 Status: OrderedPnv,Calcium 35-Lpmk-Zeifx Acid ( Plus (Calcium Carb)) 27 mg iron- 1 mg tablet (1 source)Start: 03-09-2017 End: 82-37-0542Kfy,Calcium 53-Sgse-Fnudp Acid ( Plus (Calcium Carb)) 27 mg iron- 1 mg tablet Discontinued March 09, 2017 12:00am December 03, 2017 10:29amQUEtiapine 100 mg oral tablet (20 sources)Atypical AntipsychoticStart: 06-14-2023 End: 24-38-8438bidi 1 tablet by mouth once dailyQUEtiapine (SEROquel) 100 mg tablet Indications: Bipolar affective disorder, currently depressed, mild (CMS- HCC) Take 1 tablet (100 mg total) by mouth nightly. 30 tablet 5 07/14/2024 12/01/2024 DiscontinuedStart: 75-28-6193Fhysccyu Refills(s) 0 Start Date: 02/21/23 Status: Ordered Problems Active Problems Problem ClassificationProblemDateDocumented DateEpisodic/ChronicAbdominal pain (4 sources)Pain in female pelvis; Translations: [Pelvic and perineal pain] 30-76-8118PbywltwcZstfrlqz of mouth; excluding dental (1 source)Aphthous ulcer of mouth; Translations: [Recurrent oral aphthae] 82-51-3685XzxytnklEyvtrpsx of white blood cells (2 sources)Leukocytosis; Translations: [Elevated white blood cell count, unspecified]Onset: 554310-59-4552CwyertsFeuphjxvmzidd (14 sources)Endometriosis (clinical); Translations: [Endometriosis, unspecified] Onset: 205110-63-3782BdhwjphVapaqvnko hypertension (3 sources)Benign essential hypertension; Translations: [Essential (primary) hypertension]Onset: 744338-15-0225QftzbsdBmapqyhd of lower limb (1 source)Metatarsal bone fracture; Translations: [Fracture of unspecified metatarsal bone(s), unspecified foot, initial encounter for closed fracture] 97-13-0211PbwdlsqvAobimyo on above:Problem List clean-up per request of Phys. EHR CmteHeadache; including migraine (5 sources)Migraine without aura, not refractory ; Translations: [Migraine without aura, not intractable, without status migrainosus]Onset: 07-14-2024 68-56-9467JcspwjeYaxprfvfobndr and screening for infectious disease (1 source)Encounter for screening for human papillomavirus (HPV); Translations: [ENC SCREENING HUMAN PAPILLOMAVIRUS]Onset: 12-35-7709ZgfyxlntRlqssglqb disorders (20 sources)Menorrhagia; Translations: [Excessive and frequent menstruation with regular cycle]Onset: 147722-44-2520MouguqePszn disorders (7 sources)Bipolar affective disorder, currently depressed, mild; Translations: [Bipolar disorder, current episode depressed, mild]Onset: ChronicNutritional deficiencies (6 sources)Vitamin D deficiency; Translations: [Vitamin D deficiency, unspecified]Onset: 222641-22-6478ObfwcutZwrlj aftercare (1 source)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; Translations: [OTH RN EMBEDDED CURRENT DRUG THERAPY]Onset: 21-43-1785IwbhryhfVmnhz aftercare (2 sources)Surgical follow-up; Translations: [Encounter for follow-up examination after completed treatment for conditions other than malignant neoplasm]83-66-7913XttnelrbBnhdn connective tissue disease (3 sources)Other specified soft tissue disorders; Translations: [OTHER SPEC SOFT TISSUE DISORDERS]Onset: 75-96-0168GlkxhuroVqudt female genital disorders (1 source)Pain in female genitalia on intercourse; Translations: [Unspecified dyspareunia]95-93-5484SghddasJgtpw infections; including parasitic (1 source)H/O: infectious disease; Translations: [Personal history of other infectious and parasitic diseases]Onset: 84-76-2610ShxzjjyxUcwxu infections; including parasitic (1 source)History of hepatitis F28-46-4465CdliurifUquka nutritional; endocrine; and metabolic disorders (20 sources)Disorder of mineral metabolism; 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, unspecified]Onset: 273321-71-7607EflxxlsYysji screening for suspected conditions (not mental disorders or infectious disease) (4 sources)Encounter for screening for malignant neoplasm of cervix; Translations: [ENC SCREENING MALIG NEOPLASM CERV]Onset: 06-95-9512MudavbedAvvzs skin disorders (1 source)Ingrowing nail; Translations: [INGROWING NAIL]Onset: 07-13-2022 EpisodicOther upper respiratory disease (2 sources)Seasonal allergic rhinitis; Translations: [Other seasonal allergic rhinitis]90-66-4812YexjjonBfwqq upper respiratory disease (1 source)Other seasonal allergic rhinitis; Translations: [Other seasonal allergic rhinitis]Onset: 86-57-8999ZinrgoqGlhucago codes; unclassified (4 sources)Procedure and treatment not carried out due to patient leaving prior to being seen by health care provider; Translations: [PROC AND TX NOT CARRIED OUT PT LEAVE]Onset: 52-74-0779BqsbhhtqWoszdygz codes; unclassified (2 sources)Insomnia; Translations: [Insomnia, unspecified]62-42-1317Bjmzwqbr Residual codes; unclassified (1 source)Insomnia, unspecified; Translations: [Insomnia, unspecified]Onset: 54-25-8367QwmjvbdpFevm and subcutaneous tissue infections (1 source)Local infection of the skin and subcutaneous tissue, unspecified; Translations: [LOCAL INFECT SKIN SUBQ TISSUE UNS]Onset: 98-75-1463Wtpvmmqm Spondylosis; intervertebral disc disorders; other back problems (12 sources)Lumbar radiculopathy; Translations: [Radiculopathy, lumbar region] Onset: 784771-11-6091EndfrtvcEglixscjf-dluudyu disorders (1 source)Nicotine dependence, cigarettes, uncomplicated; Translations: [NICOTINE DEPEND CIGARETTES UNCOMP]Onset: 44-93-2712FwirgeaZubbcyiwhvpo (3 sources)LOW BACK PAIN, UNSPECIFIED; Translations: [LOW BACK PAIN, UNSPECIFIED]Onset: 19-70-0998Qgxqeauxxxwq (1 source)Annual ExamOnset: 42-00-8986Hfojireaqxbj (1 source)discuss medicationOnset: 07-14-2024 Past or Other Problems Problem ClassificationProblemDateDocumented DateEpisodic/ChronicCalculus of urinary tract (20 sources)Kidney stone; Translations: [Calculus of kidney]Onset: 08-31-2016 84-33-9531GczzfsswE Codes: Natural/environment (1 source)Exposure to other specified factors, initial encounter; Translations: [EXPOSURE OTHER SPEC FACTORS INITIAL]Onset: 09-51-1501EzcoikxyReygq and electrolyte disorders (1 source)Hypokalemia; Translations: [HYPOKALEMIA]Onset: 53-07-9915YetebmnyBiaf disorders (20 sources)Mood disordersOnset: Other injuries and conditions due to external causes (1 source)Other specified injuries of head, initial encounter; Translations: [OTH SPEC INJURIES HEAD INITIAL ENC]Onset: 68-23-6558WhngynfeWnqflkr (4 sources)Syncope and collapse; Translations: [SYNCOPE AND COLLAPSE]Onset: 72-20-7410PxbaoglkAykwclpumuyb (1 source)LOW BACK PAIN, UNSPECIFIED; Translations: [LOW BACK PAIN, UNSPECIFIED] Onset: 23-44-1236Dknfyseenslf (20 sources)Onset: 06-14-2023 Resolved: 635580-25-0337Jzjbhdo tract infections (1 source)Urinary tract infection, site not specified; Translations: [UTI SITE NOT SPECIFIED]Onset: 65-95-4008Gwzvmzil Results Test NameValueInterpretationReference RangeFacilityLon 04-15-2025 Specimen: [id number] Received: 04/16/25 Status: ESTEE Palacios Num: [id number] Spec Type: Surgical Subm Dr: Aurelio Stanley Tissues: A Uterus w/ or w/o tubes ovaries except neoplastic or prolap (UTERUS) Procedures: HE/6, Gross/Micro L5 Age/ Patient Sex Location Account Attending Physician Farideh Hsu 39/F LABELL [id number] Aurelio Stanley SPEC NUM: [id number] RECD: 04/16/25 STATUS: ESTEE PALACIOS NUM: [id number] MAYELIN: 04/15/[address]: Aurelio Stanley ENTERED: 04/16/[address]: Jj Vidal SPEC TYPE: Surgical DEPT: LELA SANCHEZ ENTERED BY: [id number] RECV BY: [id number] ORDERED: HE/6, Gross/Micro L5 ORDERED: HE/6, Gross/Micro L5 Pathological Diagnosis Uterus, supracervical hysterectomy: - Proliferative phase endometrium. - Focal adenomyosis. - Serosa with no significant histopathology. - No evidence of hyperplasia or malignancy identified. Clinical Information Menorrhagia, pelvic pain, dysmenorrhea Gross Description Received in formalin labeled with the patient's name, date of , and uterus is a 58 grams supracervical hysterectomy specimen, which consists of a uterine corpus, resected without the cervix, and without bilateral adnexa. The uterine corpus is symmetrical, 4 cm cornu to cornu, 3.9 cm anterior to posterior and 4.5 cm fundus to cervical resection margin. The serosa is muir-pink, smooth and glistening with focal adhesions. The is opened to reveal a muir-pink, focally erythematous, glistening and triangular endometrial cavity, 3 x 3.2 cm with endometrium, up to 0.2 cm in thickness. The myometrium is muir-pink and trabecular, up to 2.5 cm in thickness. Cassettes: A1 Cervical resection margin A2 Serosa (to include focal adhesions) Specimen: [id number] Received: 04/16/25 Status: ESTEE Palacios Num: [id number] Spec Type: Surgical Subm Dr: Aurelio Stanley Tissues: A Uterus w/ or w/o tubes ovaries except neoplastic or prolap (UTERUS) Procedures: HE/6, Gross/Micro L5 Patient: Farideh Hsu [id number] (Continued) Specimen: [id number] Received: 04/16/25 (Continued) Gross Description (Continued) Signed (signature on file) Paul Funk MD 04/17/25 1017 Specimen: [id number] Received: 04/16/25 Status: ESTEE Palacios Num: [id number] Spec Type: Surgical Subm Dr: Aurelio Stanley Tissues: A Uterus w/ or w/o tubes ovaries except neoplastic or prolap (UTERUS) Procedures: HERBERT/Darryl Villanueva/Antwan L5 Patient: Farideh Hsu [id number] (Continued) Specimen: [id number] Received: 04/16/25 (Continued) Gross Description (Continued) A3-A4 Full-thickness cross-sections of anterior endomyometrium A5-A6 Full-thickness cross-sections of posterior endomyometrium (6, ss, LF04-643 A) JORY Microscopic Description Microscopic examination is performed. CPT Codes 64861 Specimen: [id number] Received: 04/16/25 Status: ESTEE Palacios Num: [id number] Spec Type: Surgical Subm Dr: Aurelio Stanley Tissues: A Uterus w/ or w/o tubes ovaries except neoplastic or prolap (UTERUS) Procedures: HE/6, Gross/Micro L5 Patient: Farideh Hsu [id number] (Continued) Signed (signature on file) Paul Funk MD 04/17/25 1017Normal [facility] Physician GroupALL CBC WITH AUTO DIFFon 60-87-0868IEKBBXBBB ABSOLUTE AUTO0.1NOMS HealthcareBasophils/100 WBC (Bld)0.5 %0.2 - 2.0 %NOMS HealthcareEosinophils/100 WBC (Bld)4 %0.9 - 7.0 %NOMS HealthcareErythrocyte distribution width (RBC) [Ratio]14 %11.0 - 15.0 %NOMS HealthcareHematocrit (Bld) [Volume fraction]38.1 %36.0 - 48.0 %NOMS HealthcareHemoglobin (Bld) [Mass/Vol] 12.9 g/dL12.0 - 16.0 g/dLNOAR HealthcareIMMATURE GRANULOCYTES ABS AUTO0.05High NOMS HealthcareImmature granulocytes/100 WBC (Bld)0.4 %0.0 - 0.5 %NOMS HealthcareInterpretation and review of laboratory resultsAbnormalNOMS Healthcare LYMPHOCYTES ABSOLUTE AUTO2.5NOMS HealthcareLymphocytes/100 WBC (Bld)20.4 %Low 20.5 - 60.0 %NOMSt. Joseph Medical CenterMCH (RBC) [Entitic mass]29.5 pg26.7 - 34.0 pgNOAR HealthcareMCHC (RBC) [Mass/Vol]33.9 g/dL29.9 - 35.2 g/dLNOAR HealthcareMCV (RBC) [Entitic vol]87 fL81.0 - 99.0 fLNOMS HealthcareMONOCYTES ABSOLUTE AUTO0.7NOMS HealthcareMonocytes/100 WBC (Bld)5.8 %1.7 - 12.0 %NOMS HealthcareNEUTROPHILS ABSOLUTE AUTO8.4HighNOMS HealthcareNeutrophils/100 WBC (Bld)68.9 %43.0 - 75.0 % NOMS HealthcarePlatelet mean volume (Bld) [Entitic vol]12.1 fL9.5 - 13.5 fLNOMS HealthcareTBH EO #0.5NOMS HealthcareTBH [id number] HealthcareTB RBC4.38NOMS HealthcareTB WBC12.2HighNOMS HealthcareCLINISYNCNOMS HealthcareECG 12-LEADon 55-20-3982[place] [address] Electrocardiograph Report Signed Patient: FARIDEH HSU MR#: [id number] : 1985 Acct:[id number] Age/Sex: 39 / F ADM Date: 04/06/25 Loc: [facility] Attending Dr: Aurelio Stanley D.O. Ordering Physician: Aurelio Stanley D.O. 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 Measurements Intervals [place] Rate: 89 P: 33 ID: 162 QRS: 75 QRSD: 95 T: 48 QT: 357 QTc: 436 Interpretive Statements SINUS RHYTHM Normal ECG Compared to ECG 09/01/2024 10:39:41 No significant changes Electronically Signed On 04-06-2025 18:26:03 EDT by RONALD MOURA M.D. Dictated By: RONALD MOURA Signed By: 04/06/25 1826 DD/ 0716 TD/TT: Chief Accountant:SOFÍAHRadiologiram, Radiologist, - 04/06/2025 [facility] [place] [id number] Electrocardiograph Report Signed Patient: FARIDEH HSU MR#: [id number] : 1985 Acct:[id number] Age/Sex: 39 / F ADM Date: 04/06/25 Loc: PST Attending Dr: Aurelio Stanley D.O. Ordering Physician: Aurelio Stanley D.O. 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 Measurements Intervals [place] Rate: 89 P: 33 ID: 162 QRS: 75 QRSD: 95 T: 48 QT: 357 QTc: 436 Interpretive Statements SINUS RHYTHM Normal ECG Compared to ECG 09/01/2024 10:39:41 No significant changes Electronically Signed On 04-06-2025 18:26:03 EDT by RONALD MOURA M.D. Dictated By: RONALD MOURA Signed By: 04/06/25 1826 DD/ 0716 TD/TT: Chief Accountant: [facility]-MINDEDAdan HealthcareRadiology Study observation (narrative)[facility] 12-LEAD Ordered By: Radiologist Radiology on 05-71-8557[facility] Work Phone: IGP,APTIMA HPV,AGE GDLNon 98-95-0896DFN GDLN ACOG TESTINGNote.[facility] HealthcareComment on above:TESTS RESULT FLAG UNITS REF RANGE LAB Clinician Provided Cytology Information Source.............Cervix;Endocervix No. of containers..01 ThinPrep Vial Age Algo ACOG Myriam... 32- FLAG LEGEND: L-Low Normal,H-High Normal,LL-Alert Low,HH-Alert High <-Panic Low,>-Panic High,A-Abnormal,AA-Critical Abnormal Performed at: 01 =[address] [address] Kya Lopez MD, HPV APTIMANegativeNegativeNOMS HealthcareComment on above:This nucleic acid amplification test detects fourteen high- risk HPV types (16,18,31,33,35,39,45,51,52,56,58,59,66,68) without differentiation. Performed at: =[facility] [id number] Curb Machine Operator: Kya Lopez MD, Phone: [phone] Performed at: [facility] [id number] Curb Machine Operator: Kya Lopez MD, Phone: [phone] IGP, APTIMA HPV, RFX 16/18,45Note.NOMS HealthcareComment on above:TESTS RESULT FLAG UNITS REF RANGE LAB DIAGNOSIS: 02 NEGATIVE FOR INTRAEPITHELIAL LESION OR MALIGNANCY. Specimen adequacy: 02 Satisfactory for evaluation. No endocervical component is identified. Performed by: 02 Hailey Frye, Senior Bookkeeper ([facility]) . 02 Note: Note 02 The Pap [...] High,A-Abnormal,AA-Critical Abnormal Performed at: 02 [facility] [address] [address] Kya Lopez MD, BRUSH-SPATULA CERVIX ENDOCERVIX [facility] WITH AUTO DIFFERENTIALon 80-87-7583LXDAIAOFLJJ ATYPICAL LYMPHOCYTES RELATIVE PERCENT BY MANUAL COUNT1 %NormalProParkland Memorial Hospital on above:Result Comment: This is an appended report. These results have been appended to a previously preliminary verified report.Performed By: #### CBCA #### [facility] ([facility]) [address] [place] [address] VIRCELLAVISION DIFFERENTIAL TYPECELLAVISION DIFFERENTIALNormal ProMKaiser Foundation HospitalComuniversity of michigan health on above:Result Comment: This is an appended report. These results have been appended to a previously preliminary verified report.Performed By: #### CBCA #### [facility] ([facility]) [address] [place] [address] VIRCELLAVISION EOSINOPHILS ABSOLUTE COUNT (10*3/UL) BY MANUAL COUNT0.6 10*3/uLHigh0.0-0.4[facility] on above:Result Comment: This is an appended report. These results have been appended to a previously preliminary verified report.Performed By: #### CBCA #### [facility] ([facility]) [address] [place] [address] VIRCELLAVISION EOSINOPHILS PERCENT BY MANUAL COUNT5 %Normal ProMKaiser Foundation HospitalComuniversity of michigan health on above:Result Comment: This is an appended report. These results have been appended to a previously preliminary verified report.Performed By: #### CBCA #### [facility] ([facility]) [address] [place] [address] VIRCELLAVISION LYMPHOCYTES ABSOLUTE COUNT (10*3/UL) BY MANUAL COUNT2.5 10*3/uLNormal1.0-3.5PMorrow County HospitalComuniversity [facility] health on above:Result Comment: This is an appended report. These results have been appended to a previously preliminary verified report.Performed By: #### CBCA #### [facility] ([facility]) [address] [place] [address] VIRCELLAVISION LYMPHOCYTES RELATIVE PERCENT BY MANUAL COUNT18 % NormalProSt. Joseph Medical CenterComuniversity of michigan health on above:Result Comment: This is an appended report. These results have been appended to a previously preliminary verified report.Performed By: #### CBCA #### [facility] ([facility]) [address] [place] [address] VIRCELLAVISION MONOCYTES ABSOLUTE COUNT (10*3/UL) IN BLOOD BY MANUAL COUNT1.2 10*3/uLHigh0.0-0.9ProSt. Joseph Medical CenterComuniversity of michigan health on above: Result Comment: This is an appended report. These results have been appended to a previously preliminary verified report.Performed By: #### CBCA #### [facility] ([facility]) [address] [place] [address] VIRCELLAVISION MONOCYTES RELATIVE PERCENT BY MANUAL COUNT9 % NormalProSt. Joseph Medical CenterComuniversity of michigan health on above:Result Comment: This is an appended report. These results have been appended to a previously preliminary verified report.Performed By: #### CBCA #### [facility] ([facility]) [address] [place] [address] VIRCELLAVISION NEUTROPHILS ABSOLUTE COUNT BY MANUAL COUNT8.7 10*3/uLHigh1.5-6.6[facility] Medical CenterComuniversity of mich[facility] health on above:Result Comment: This is an appended report. These results have been appended to a previously preliminary verified report.Performed By: #### CBCA #### [facility] ([facility]) [address] [place] [address] VIRCELLAVISION NEUTROPHILS RELATIVE PERCENT BY MANUAL COUNT67 % NormalProSt. Joseph Medical CenterComment on above:Result Comment: This is an appended report. These results have been appended to a previously preliminary verified report.Performed By: #### CBCA #### [facility] ([facility]) [address] [place] [address] VIRCELLAVISION POLYCHROMASIA IN BLOOD BY LIGHT MICROSCOPY1+ [facility]-FairhillComuniversity of [facility] health on above:Result Comment: This is an appended report. These results have been appended to a previously preliminary verified report.Performed By: #### CBCA #### [facility] ([facility]) [address] [place] [address] VIRErythrocyte distribution width (RBC) [Ratio]14.9 %Normal 11.5-15ProSt. Joseph Medical CenterComment on above:Performed By: #### CBCA #### [facility] ([facility]) [address] [place] [address] VIRHematocrit (Bld) [Volume fraction]39.2 %Qusxvk67-47CgkDbtehiSt. Joseph Medical CenterComment on above:Performed By: #### CBCA #### [facility] ([facility]) [address] [place] [address] VIRHemoglobin (Bld) [Mass/Vol]13.3 g/uGOpjyqf12.7-15.5PMorrow County HospitalComment on above:Performed By: #### CBCA #### [facility] ([facility]) [address] [place] [address] VIRMCH (RBC) [Entitic mass]30.2 gdPsgqmj75-86MejZklkatKettering Health Behavioral Medical CenterComment on above:Performed By: #### CBCA #### [facility] ([facility]) [address] [place] [address] VIRMCHC (RBC) [Mass/Vol]34.0 g/aPRrhjew25-55JygUfkqzeKettering Health Behavioral Medical CenterComment on above:Performed By: #### CBCA #### [facility] ([facility]) [address] [place] [address] VIRMCV (RBC) [Entitic vol]89 cPPmfsil47-639QirAmeyij Fremont HospitalComment on above:Performed By: #### CBCA #### [facility] ([facility]) [address] [place] [address] VIRPlatelet mean volume (Bld) [Entitic vol]11.2 fLNormal7-12 [facility] Behavioral Medical CenterComment on above:Performed By: #### CBCA #### [facility] ([facility]) [address] [place] [address] VIRPlatelets (Bld) [#/Vol]163 10*3/vJNfxtxi368-505XgaVjrlsq [facility]ont HospitalComment on above:Performed By: #### CBCA #### [facility] ([facility]) [address] [place] [address] VIRRBC COUNT4.41 X10E12/LNormal3.8-5.2PMorrow County HospitalComment on above:Performed By: #### CBCA #### [facility] ([facility]) [address] [place] [address] VIRWBC (Bld) [#/Vol]13.0 10*3/uLHigh4-11K[facility] Behavioral Medical CenterComment on above:Performed By: #### CBCA #### [facility] ([facility]) [address] [place] [address] VIRCBC AND AUTO DIFFon 22-70-8907MLTFBGHN BASOPHIL0.1 X10E9/L Normal0.0-0.2ProMedica Mercy HealthComment on above:Performed By: #### CBCA, HA1C, CMP, 41902-4, 3015-3 #### [facility] ([id number]) [address], [address] [place], [place] [address]QMNDUYOB FTQRGYKNWM84.1 X10E9/LHigh1.5-6.6ProSt. Rita'S HospitalComment on above:Performed By: #### CBCA, HA1C, CMP, 29941-0, 3015-3 #### [facility] ([id number]) [address], [address] [place], [place] [address]Oipgzxfid/100 WBC (Bld)0.5 %NormalProSt. Rita'S Hospital Comment on above:Performed By: #### CBCA, HA1C, CMP, 14980-3, 3015- #### [facility] ([id number]) [address], [address] [place], [place] [address]Majyqrdbnaw (Bld) [#/Vol]0.6 10*3/uLHigh0.0-0.4ProSt. Rita'S HospitalComment on above:Performed By: #### CBCA, HA1C, CMP, 34279-0, 3015-3 #### [facility] ([id number]) [address], [address] [place], [place] [address]Nrhunqhrgfh/100 WBC (Bld)4.2 %NormalKettering Health Hamilton Comment on above:Performed By: #### CBCA, HA1C, CMP, 03552-2, 3015-3 #### [facility] ([id number]) [address], [address] [place], [place] [address]Nozikknkbgl distribution width (RBC) [Ratio]15.2 %High11.5-15.0 [facility] HospitalComment on above:Performed By: #### CBCA, HA1C, CMP, 74490-8, 3015-3 #### [facility] ([id number]) [address], [address] [place], [place] [address]Zbwdwymawx (Bld) [Volume fraction]36.5 %Ovyfcy72-65CkjQwfstb [facility] HospitalComment on above:Performed By: #### CBCA, HA1C, CMP, 77828-2, 3015-3 #### [facility] ([id number]) [address], [address] [place], [place] [address]Yxjdiovgjp (Bld) [Mass/Vol]12.4 g/vBDwcbkg74.7-15.5ProMedAkron Children's Hospital HospitalComment on above:Performed By: #### CBCA, HA1C, CMP, 53114-8, 3015-08 #### [facility] ([id number]) [address], [address] [place], [place] [address]Sknapawtrvr (Bld) [#/Vol]3.1 10*3/uLNormal1.0-3.5PHenry County Hospital HospitalComment on above:Performed By: #### CBCA, HA1C, CMP, , 3015-08 #### [facility] ([id number]) [address], [address] [place], [place] [address]Jzuundamwpu/100 WBC (Bld)19.9 %NormalProOhiohealth Nelsonville Health Center Hospital Comment on above:Performed By: #### CBCA, HA1C, CMP, 46017-7, 3015-3 #### [facility] ([id number]) [address], [address] [place], [place] [address]VST (RBC) [Entitic mass]29.6 nyQrxgyi56-46OplRxyqen [facility] HospitalComment on above:Performed By: #### CBCA, HA1C, CMP, 72182-1, 3015-3 #### [facility] ([id number]) [address], [address] [place], [place] [address]DIKV (RBC) [Mass/Vol]33.9 g/lKKknhxo10-57YbnOrwwoi [facility] HospitalComment on above:Performed By: #### CBCA, HA1C, CMP, 74241-7, 3015-3 #### [facility] ([id number]) [address], [address] [place], [place] [address]NZI (RBC) [Entitic vol]87 uSPljkwm23-365HqoXusmyd [facility] HospitalComment on above:Performed By: #### CBCA, HA1C, CMP, , 3015-3 #### [facility] ([id number]) [address], [address] [place], [place] [address]Jgneznbsc (Bld) [#/Vol]0.5 10*3/uLNormal0-0.9ProSt. Rita'S HospitalComment on above:Performed By: #### CBCA, HA1C, CMP, , 3015-3 #### [facility] ([id number]) [address], [address] [place], [place] [address]Oruqzsjdb/100 WBC (Bld)3.3 %NormalKettering Health Hamilton Comment on above:Performed By: #### CBCA, HA1C, CMP, , 3015-3 #### [facility] ([id number]) [address], [address] [place], [place] [address]Gynkwqjqgoh/100 WBC (Bld)72.1 %NormalKettering Health Hamilton Comment on above:Performed By: #### CBCA, HA1C, CMP, , 3015-3 #### [facility] ([id number]) [address], [address] [place], [place] [address]Ymorfmjf mean volume (Bld) [Entitic vol]11.0 fLNormal7-12 [facility] HospitalComment on above:Performed By: #### CBCA, HA1C, CMP, 75330-6, 3015-3 #### [facility] ([id number]) [address], [address] [place], [place] [address]Kkonznmub (Bld) [#/Vol]189 10*3/uPOvdnlj851-969QxoNniitg [facility] HospitalComment on above:Performed By: #### CBCA, HA1C, CMP, 49316-1, 3015-3 #### [facility] ([id number]) [address], [address] [place], [place] [address]MMA COUNT4.17 X10E12/LNormal3.80-5.20ProOhiohealth [facility] Hospital Comment on above:Performed By: #### CBCA, HA1C, CMP, 86624-9, 3015-3 #### [facility] ([id number]) [address], [address] [place], [place] [address]UZA (Bld) [#/Vol]15.4 10*3/uLHigh4.0-11.0ProOhiohealth Nelsonville Health Center HospitalComment on above:Performed By: #### CBCA, HA1C, CMP, 38107-1, 3 #### [facility] ([id number]) [address], [address] [place], [place] [address]VVJWQMSYJYQGB METABOLIC PANELon 59-00-7529Mehvvra [Mass/Vol]3.7 g/dLNormal3.2-5.3Pro[facility]ica [facility] HospitalComment on above:Performed By: #### CBCA, HA1C, CMP, 31548-4, 3015-3 #### [facility] ([id number]) [address], [address] [place], [place] [address]USN [Catalytic activity/Vol]154 U/BErcc07-432CseUeazwk [facility] HospitalComment on above:Performed By: #### CBCA, HA1C, CMP, 08736-0, 3015-3 #### [facility] ([id number]) [address], [address] [place], [place] [address]QUW [Catalytic activity/Vol]53 U/LHigh0-31ProMedAkron Children's Hospital HospitalComment on above:Performed By: #### CBCCriss, HARashmi, CMP, 95817-8, 3015-3 #### [facility] ([id number]) [address], [address] [place], [place] [address]Xibtc gap [Moles/Vol]8 mmol/LNormal5-15ProSt. [facility] Comment on above:Performed By: #### JIM, HA1C, CMP, 69005-5, 3015- #### [facility] ([id number]) [address], [address] [place], [place] [address]SNB [Catalytic activity/Vol]29 U/LNormal0-41ProOhiohealth Nelson[facility] Health Center HospitalComment on above:Performed By: #### JIM HARashmi, CMP, 47000-4, 3015- #### [facility] ([id number]) [address], [address] [place], [place] [address]Azxpkhgjg [Mass/Vol]0.2 mg/dLLow0.3-1.2PCenterville Comment on above:Performed By: #### JIM, HARashmi, CMP, 06830-4, 3015-3 #### [facility] ([id number]) [address], [address] [place], [place] [address]Kovgzyn [Mass/Vol]8.8 mg/dLNormal8.5-10.5PHenry County Hospital HospitalComment on above:Performed By: #### CBCCriss, HA1C, CMP, 12001-7, 3015-3 #### [facility] ([id number]) [address], [address] [place], [place] [address]Gxoygxya [Moles/Vol]105 mmol/UKlnywn97-899GtfOublbe [facility] HospitalComment on above:Performed By: #### JIM, HARashmi, CMP, 17330-8, 3015-3 #### [facility] ([id number]) [address], [address] [place], [place] [address]RX2 [Moles/Vol]24 mmol/UTmslfd33-52XlwVecjzuCenterville Comment on above:Performed By: #### CBCCriss, HA1C, CMP, 55196-0, 3015-3 #### [facility] ([id number]) [address], [address] [place], [place] [address]Waagnobrav [Mass/Vol]0.74 mg/dLNormal0.40-1.00K[facility]tering Health HamiltonComment on above:Result Comment: METHOD TRACEABLE TO IDMS STANDARD Performed By: #### JIM HARashmi, CMP, 97832-6, 3015- #### [facility] ([id number]) [address], [address] [place], [place] [address]eENR (CKD-EPI) NON-RACE DEPENDENT>90Normal>59ProSt. Rita'S HospitalComment on above:Result Comment: Reported eGFR is based on the CKD-EPI 2020 equation that does not use a race coefficient.Performed By: #### FABIANO FERNANDEZ, CMP, 17275-8, 3015-08 #### [facility] ([id number]) [address], [address] [place], [place] [address]Zjabbam [Mass/Vol]99 mg/wKSqjsek16-71HjfNimsohKettering Health Hamilton Comment on above:Performed By: #### JIM, HA1C, CMP, 69378-0, 3015-3 #### [facility] ([id number]) [address], [address] [place], [place] [address]Hmyvbqomt [Moles/Vol]3.6 mmol/LNormal3.5-5.0ProSt. Rita'S HospitalComment on above:Performed By: #### CBCCriss, HA1C, CMP, 61903-5, 3016-3 #### [facility] ([id number]) [address], [address] [place], [place] [address]Wyauiuc [Mass/Vol]6.7 g/dLNormal6.0-8.0[facility] Comment on above:Performed By: #### CBCCriss HARashmi, CMP, 90114-8, 6-3 #### [facility] ([id number]) [address], [address] [place], [place] [address]Fgvyyo [Moles/Vol]137 mmol/WUsumib851-673FydAnvamq [facility] HospitalComment on above:Performed By: #### FABIANO FERNANDEZ, CMP, 16613-3, 3016-3 #### [facility] ([id number]) [address], [address] [place], [place] [address]Nrth nitrogen [Mass/Vol]11 mg/dLNormal5-23ProSt. Rita'S HospitalComment on above:Performed By: #### FABIANO FERNANDEZ, CMP, 44108-0, 3016-3 #### [facility] ([id number]) [address], [address] [place], [place] [address]THY A1C (GLYCO-HGB)on 96-57-7822Zzeoqwa [Mass/Vol]111 mg/dL NormalProSt. Rita'S HospitalComment on above:Performed By: #### CBCCriss HARashmi, CMP, 92356-6, 3016-3 #### [facility] ([id number]) [address], [address] [place], [place] [address]IxC2v (Bld) [Mass fraction]5.5 %Normal4.4-5.6ProSt. Rita'S HospitalComment on above:Result Comment: NOTE ADA Guidelines Result HgbA1c Normal : less than 5.7 % Prediabetes : 5.7 % to 6.4 % Diabetes : > 6.4 % Use with caution in patients with abnormal hemoglobin variants as the half-life of red blood cells and in vivo glycation rates are affected.Performed By: #### FABIANO FERNANDEZ, RONDA, 86853-7, 3016-3 #### [facility] ([id number]) [address], [address] [place], [place] [address]Wtrqw 1995 panelon 54-26-6291Naropmksvmw [Mass/Vol]182 mg/dL Qjhcab142-948PjaNyetsw [facility] HospitalComment on above:Performed By: #### FABIANO FERNANDEZ, RONDA, 21550-3, 3016-3 #### [facility] ([id number]) [address], [address] [address]Vfnopolzcsc in HDL [Mass/Vol]33 mg/dLLow>39ProSt. Rita'S HospitalComment on above:Result Comment: HDL <40 mg/dL - High Risk HDL > or = 40mg/dL- Desirable HDL >60 mg/dL - Negative Risk Performed By: #### JIM, FABIANO, RONDA, 41263-0, 3016-3 #### [facility] ([id number]) [address] [place], [place] [address]Dfscmtzcfyg in LDL [Mass/Vol]90 mg/dLNormal<130ProSt. Rita'S HospitalComment on above:Result Comment: LDL <100 mg/dL - Desirable LDL >160 mg/dL - High Risk Performed By: #### JIM, FABIANO, CMP, 32522-0, 3016-3 #### [facility] ([id number]) [address], [address] [place], [place] [address]Cyejmsrgncb in VLDL [Mass/Vol]59 mg/dLHigh0-30ProOhiohealth [facility] Center HospitalComment on above:Performed By: #### CBCA, HA1C, CMP, 24054-0, 3016-3 #### [facility] ([id number]) [address], [address] [place], [place] [address]TUVFYHKHDAI:HDL5.5High1.0-5.0ProOhiohealth Nelsonville Health Center HospitalComment on above:Performed By: #### CBCA, HA1C, CMP, 86671-5, 3016-3 #### [facility] ([id number]) [address] [place], [place] [address]Teuyffafltuh [Mass/Vol]294 mg/aTJzpz18-942IigEdkkes [facility] HospitalComment on above:Performed By: #### CBCA, HA1C, CMP, 91545-1, 3016-3 #### [facility] ([id number]) [address] [place], [place] [address]WCH Qnon 63-33-6131QWR6.66 uIU/mLNormal0.49-4.67ProSt. Rita'S HospitalComment on above:Performed By: #### CBCA, HA1C, CMP, 23910-8, 3016-3 #### [facility] ([id number]) [address] [place], [place] [address]HYL 12-LEADon 05-92-4891[address] [address] Electrocardiograph Report Signed Patient: FARIDEH HSU MR#: [id number] : 1985 Acct:[id number] Age/Sex: 39 / F ADM Date: 09/01/24 Loc: [facility] Attending Dr: Aurelio Stanley D.O. Ordering Physician: Aurelio Stanley D.O. 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 Measurements Intervals [place] Rate: 90 P: 35 ID: 162 QRS: 76 QRSD: 98 T: 54 QT: 377 QTc: 462 Interpretive Statements SINUS RHYTHM No previous ECG available for comparison Electronically Signed On 09-02-2024 13:04:38 EST by AFIA WESTBROOK M.D. Dictated By: AFIA WESTBROOK M.D. Signed By: 09/03/24 0917 DD/ 1039 TD/TT: Chief Accountant:TBHRadiology, Radiologist, - 09/03/2024 [place] [address] Electrocardiograph Report Signed Patient: FARIDEH HSU MR#: [id number] : 1985 Acct:[id number] Age/Sex: 39 / F ADM Date: 09/01/24 Loc: [facility] Attending Dr: Aurelio Stanley D.O. Ordering Physician: Aurelio Stanley D.O. 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 Measurements Intervals [place] Rate: 90 P: 35 ID: 162 QRS: 76 QRSD: 98 T: 54 QT: 377 QTc: 462 Interpretive Statements SINUS RHYTHM No previous ECG available for comparison Electronically Signed On 09-02-2024 13:04:38 EST by AFIA WESTBROOK M.D. Dictated By: AFIA WESTBROOK M.D. Signed By: 09/03/24 0917 DD/ 1039 TD/TT: Chief Accountant: SANDRO [facility] 12-LEADOrdered By: Radiologist Radiology on 64-43-8284[facility] Work Phone: aLL BASIC METABOLIC PANELon 40-42-6045Flupr gap [Moles/Vol]11.9 mmol/LNOMS HealthcareCalcium [Mass/Vol]8.9 mg/dL8.5 - 10.1 mg/dL [facility] HealthcareChloride [Moles/Vol]104 mmol/L98 - 107 mmol/LNOMS HealthcareCO2 [Moles/Vol]26.1 mmol/L21.0 - 32.0 mmol/LNOMS HealthcareCreatinine [Mass/Vol]0.82 mg/dL0.55 - 1.02 mg/dLNOAR HealthcareGFR/1.73 sq M.predicted CKD-EPI (S/P/Bld) [Vol rate/Area]>60>=60 mL/min/1.73m 2NOMS HealthcareGlucose [Mass/Vol]88 mg/dL74 - 106 mg/dLNOAR HealthcarePotassium [Moles/Vol]4 mmol/L3.5 - 5.1 mmol/LNOMS HealthcareSodium [Moles/Vol]138 mmol/L136 - 145 mmol/LNOMS HealthcareTBH EGFR- NON AF TURKISH>60>=60 mL/min/1.73m 2NOMS HealthcareUrea nitrogen [Mass/Vol]16 mg/dL7.0 - 18.0 mg/dLNOAR HealthcareUrea nitrogen/Creatinine [Mass ratio]19.5 mg/mgNOAR HealthcareCLINISYNCNResearch Medical CenterECG 12-LEADon 79-66-8471Hivfydwpx Study observation (narrative)[facility]–SmithvilleVitamin D+Metabolites [Mass/Vol]on 39-07-9475LELLGAK D 25 HYD TOT31.6 ng/kYUsbifq05-646AvvUkythfKettering Health Hamilton Comment on above:Result Comment: Vitamin D status 25 [place] Vitamin D Deficiency <20 ng/mL Insufficiency 20-29 ng/mL Sufficiency 30-100 ng/mL Toxicity >100 ng/mL NOTE: A pediatric reference range has not been established by the pipeline controller of this kit. The [place] [employer] recommends a Vitamin D level of = or >20ng/mL in infants and children.Performed By: #### 45028-6 #### [facility] ([id number]) [address] [place], [place] [address]Qci Reportson 72-11-1756Std Reports [id number]#1.00CD:[address] [place], [place] [address]RAD - [place] Reporton 32-68-8373DPZ - [place] Report [id number]#1.00CD:[address] [place], [place] [address]Physician Referralon 72-41-2438Hhuxriaqg Referral [id number]#1.00CD:[address] [place], [place] [address]PAP ACOG PANEL 2: 30 to 65on 09-28-2022..[facility] Comment on above:Result Comment: Performed at: WBPerformed By: #### [id number] #### [facility] [address] [place] [address] Dr. Oneyda Gracia Gdln ACOG Rqvylro66-14NizrvrFvbSt. Mary's Medical CenterComment on above:Performed By: #### [id number] #### [facility] [address] [place] [address] Dr. Oneyda RodriguezDIAGNOSIS:CommentCorey HospitalComment on above: Result Comment: NEGATIVE FOR INTRAEPITHELIAL LESION OR MALIGNANCY. REACTIVE CELLULAR CHANGES AND/OR REPAIR ARE PRESENT. Performed at: WBPerformed By: #### [id number] #### [facility] [address] [place] [address] Dr. Call ChangElectronically signed by:[facility] Comment on above:Result Comment: Kya Lopez MD, Pathologist Performed at: WBPerformed By: #### [id number] #### [facility] [address] [place] [address] Dr. Oneyda Randolph AptimaNegativeNormalNegativeThe Children's [facility] on above:Result Comment: This nucleic acid amplification test detects fourteen high-risk HPV types (16,18,31,33,35,39,45,51,52,56,58,59,66,68) without differentiation. Performed at: =GPerformed By: #### [id number] #### [facility] [address] [place] [address] Dr. Oneyda Randolph Genotype ReflexCommentOhioHealth on above:Result Comment: Criteria not met, HPV Genotype not performed. Performed at: WBPerformed By: #### [id number] #### [facility] [address] [place] [address] Dr. Oneyda RodriguezMethodology:CommentNoWilson Health on above: Result Comment: This liquid based ThinPrep(R) pap test was screened with the use of an image guided system. Performed at: WBPerformed By: #### [id number] #### [facility] [address] [place] [address] Dr. Oneyda RodriguezNote:CommentNoWilson Health on above:Result Comment: The Pap smear is a screening test designed to aid in the detection of premalignant and malignant conditions of the uterine cervix. It is not a diagnostic procedure and should not be used as the sole means of detecting cervical cancer. Both false-positive and false-negative reports do occur. . Performed at: WBPerformed By: #### [id number] #### [facility] [address] [place] [address] Dr. Oneyda RodriguezPerformed by:CommentNoWilson Health on above: Result Comment: Corinne Elliott, Supervisory Sales/Marketing (ASCP) Performed at: WBPerformed By: #### [id number] #### [facility] [address] [place] [address] Dr. Oneyda RodriguezSpecimen adequacy:CommentNormalThe Marcy HospitalComment on above:Result Comment: Satisfactory for evaluation. Endocervical and/or squamous metaplastic cells (endocervical component) are present. Performed at: WBPerformed By: #### [id number] #### [facility] [address] [place] [address] Dr. Oneyda GodinezURE URINEon [id number] URINEIsolate 1 Escherichia coli >100,000 cfu/mL of ORGANISM 1 Escherichia coli ANTIBIOTIC M.I.C RX STATUS Ampicillin 4 S F Ampicillin/Sulbactam 4 S F Piperacillin/Tazobactam <=4 S F Cefazolin <=4 S F Ceftazidime <=1 S F Ceftriaxone <=1 S F Ertapenem <=0.5 S F Imipenem <=0.25 S F Amikacin <=2 S F Gentamicin <=1 S F Tobramycin <=1 S F Ciprofloxacin <=0.25 S F Levofloxacin <=0.12 S F Nitrofurantoin <=16 S F Trimethoprim/Sulfamethoxazole <=20 S FNormalThe Parkwood HospitalComment on above:Performed By: #### [id number] #### [facility] [address] [place] [address] Dr. Oneyda Clarke AUTO DIFFon [id number] #0.1 103/ulNormal0.0-0.1Toledo HospitalComment on above:Performed By: #### CBC #### [facility] [address] [place] [address] Dr. Oneyda Duartesophils/100 WBC (Bld)0.5 %Normal0.2-2.0[facility] Comment on above:Performed By: #### CBC #### [facility] [address] [place] [address] Dr. Oneyda Feldman #0.2 103/ulNormal0.0-0.7The Parkwood HospitalComment on above: Performed By: #### CBC #### [facility] [address] [place] [address] Dr. Oneyda Mohamudosinophils/100 WBC (Bld)1.6 %Normal0.9-7.0[facility] Comment on above:Performed By: #### CBC #### [facility] [address] [place] [address] Dr. Oneyda Mohamudrythrocyte distribution width (RBC) [Ratio]13.4 %Dnzlsc89.0-15.0 [facility] HospitalComment on above:Performed By: #### CBC #### [facility] [address] [place] [address] Dr. Oneyda RodriguezHematocrit (Bld) [Volume fraction]35.4 %Critically low36.0-48.0 [facility] HospitalComment on above:Performed By: #### CBC #### [facility] [address] [place] [address] Dr. Oneyda RodriguezHemoglobin (Bld) [Mass/Vol]12.2 g/gNFjarlf84.0-16.0The Parkwood HospitalComment on above:Performed By: #### CBC #### [facility] [address] [place] [address] Dr. Oneyda Carpenter #0.05 10e3/ulCritically high0.00-0.03[facility] Comment on above:Performed By: #### CBC #### [facility] [address] [place] [address] Dr. Oneyda Carpenter %0.4 %Normal0.0-0.5ThChillicothe VA Medical CenterComment on above: Performed By: #### CBC #### [facility] [address] [place] [address] Dr. Oneyda Cutler #2.2 103/ulNormal1.2-3.8The Parkwood HospitalComment on above:Performed By: #### CBC #### [facility] [address] [place] [address] Dr. Oneyda Statonmphocytes/100 WBC (Bld)16.6 %Critically low20.5-60.0[facility] HospitalComment on above:Performed By: #### CBC #### [facility] [address] [place] [address] Dr. Oneyda MayUAL DIFF REQNONormalThe Parkwood HospitalComment on above: Performed By: #### CBC #### [facility] [address] [place] [address] Dr. Oneyda Lucero (RBC) [Entitic mass]29.7 xeZwttzf32.7-34.0The Parkwood HospitalComment on above:Performed By: #### CBC #### [facility] [address] [place] [address] Dr. Oneyda Lucero (RBC) [Mass/Vol]34.5 g/dMVcsvva82.9-35.2The Parkwood HospitalComment on above:Performed By: #### CBC #### [facility] [address] [place] [address] Dr. Oneyda Mendosa (RBC) [Entitic vol]86.1 wCZxqupn59.0-99.0The Parkwood HospitalComment on above:Performed By: #### CBC #### [facility] [address] [place] [address] Dr. Oneyda Babcock #0.6 103/ulNormal0.3-0.8The Parkwood HospitalComment on above:Performed By: #### CBC #### [facility] [address] [place] [address] Dr. Oneyda Jayocytes/100 WBC (Bld)4.2 %Normal1.7-12.0[facility] Comment on above:Performed By: #### CBC #### [facility] [address] [place] [address] Dr. Oneyda Wu #10.3 103/ulCritically high1.4-6.5[facility] Comment on above:Performed By: #### CBC #### [facility] [address] [place] [address] Dr. Oneyda Dhillonutrophils/100 WBC (Bld)76.7 %Critically high43.0-75.0The Parkwood HospitalComment on above:Performed By: #### CBC #### [facility] [address] [place] [address] Dr. Yilan ChangPlatelet mean volume (Bld) [Entitic vol]11.1 fLNormal9.5-13.5The [facility]wood HospitalComment on above:Performed By: #### CBC #### [facility] [address] [place] [address] Dr. Oneyda RodriguezPLT184 103/gpCyfkhl022-304Tjr Parkwood HospitalComment on above: Performed By: #### CBC #### [facility] [address] [place] [address] Dr. Oneyda RodriguezRBC4.11 106/ulCritically low4.20-5.40The Parkwood HospitalComment on above:Performed By: #### CBC #### [facility] [address] [place] [address] Dr. Oneyda RodriguezWBC13.4 103/ulCritically high4.0-11.0The Parkwood HospitalComment on above:Performed By: #### CBC #### [facility] [address] [place] [address] Dr. Oneyda Schneider URINE PROFILEon [id number] Ql (U)NegativeNormal NEGATIVEToledo HospitalComment on above:Performed By: #### KIKI SANTANAICRO #### [facility] [address] [place] [address] Dr. Oneyda Eaton (U)CLEARNormalCLEARThe Parkwood HospitalComment on above: Performed By: #### KIKI SANTANAICRO #### [facility] [address] [place] [address] Dr. Oneyda Lynne (U)LT. YELLOWNormalYELLOWThe Parkwood HospitalComment on above:Performed By: #### AMX UMICRO #### [facility] [address] [place] [address] Dr. Oneyda PrestonDA micrscopic examination will be performed if indicated. NormalThe Parkwood HospitalComment on above:Performed By: #### MAX UMICRO #### [facility] [address] [place] [address] Dr. Oneyda Beckerose Ql (U)NegativeNormalNEGATIVEThe [facility] HospitalComment on above:Performed By: #### ERUR, UMICRO #### [facility] [address] [address] [address] Oneyda RodriguezHemoglobin Ql (U)SMALLAbnormalNEGAultman Orrville Hospital Comment on above:Performed By: #### ERUR, UMICRO #### [facility] [address] [address] [address] Oneyda RodriguezKetones Ql (U)NegativeNormalNEGATIVEToledo HospitalComment on above:Performed By: #### ERUR, UMICRO #### [facility] [address] [place] [address] Dr. Oneyda RodriguezLEUKOCYTESSMALLAbnormalNEGATIVEToledo HospitalComment on above:Performed By: #### MAX, UMICRO #### [facility] [address] [place] [address] Dr. Oneyda Hoskinstrite Ql (U)PositiveAbnormalNEGAultman Orrville Hospital Comment on above:Performed By: #### MAX, UMICRO #### [facility] [address] [place] [address] Dr. Oneyda RodriguezpH (U)6.0 [pH]Normal5-9[facility] HospitalComment on above: Performed By: #### MAX UMICRO #### [facility] [address] [address] [address] Oneyda RodriguezSPEC GRAVITY1.847Oqrikr0.005-<=1.025The Parkwood HospitalComment on above:Performed By: #### MAX, UMICRO #### [facility] [address] [place] [address] Dr. Oneyda Duncan PROTEINTRACENormalNEGATIVE/ TRACEThe Parkwood HospitalComment on above:Performed By: #### ERUR, UMICRO #### [facility] [address] [place] [address] Dr. Oneyda Hylton MICRO INDINDICATEDNormalThChillicothe VA Medical CenterComment on above: Performed By: #### BILL SANTANA #### [facility] [address] [place] [address] Dr. Oneyda Goldsmith Qn (U)0.2 {Saul'U}/dLNormal0.2 - 1.0The Parkwood HospitalComment on above:Performed By: #### HENRI SANTANARO #### [facility] [address] [place] [address] Dr. Oneyda Ambriz HCG QUALon [id number], QUALNegativeNormalNEGATIVE The Parkwood HospitalComment on above:Performed By: #### HENRI SANTANARO #### [facility] [address] [place] [address] Dr. Oneyda Hickman 14(COMP METB)on [id number] [Mass/Vol]3.6 g/dLNormal 3.4-5.0The Parkwood HospitalComment on above:Performed By: #### CMP #### [facility] [address] [place] [address] Dr. Oneyda RodriguezAlbumin/Globulin [Mass ratio]1.1 {ratio}NormalThe Parkwood HospitalComment on above:Performed By: #### CMP #### [facility] [address] [place] [address] Dr. Oneyda Talbot [Catalytic activity/Vol]115 U/EAqgibe86-677Rxc [facility] HospitalComment on above:Performed By: #### CMP #### [facility] [address] [place] [address] Dr. Oneyda Vasques [Catalytic activity/Vol]52 U/MFncdgz38-12Pnm [facility] HospitalComment on above:Performed By: #### CMP #### [facility] [address] [place] [address] Dr. Oneyda Nolan gap [Moles/Vol]8.2 mmol/LNormalThe [facility]wood HospitalComment on above:Performed By: #### CMP #### [facility] [address] [place] [address] Dr. Yilan ChangAST [Catalytic activity/Vol]21 U/AOfvrow98-15Qxd [facility] HospitalComment on above:Performed By: #### CMP #### [facility] [address] [place] [address] Dr. Oneyda RodriguezBilirubin [Mass/Vol]0.1 mg/dLCritically low0.2-1.0The Parkwood HospitalComment on above:Performed By: #### CMP #### [facility] [address] [place] [address] Dr. Oneyda RodriguezCalcium [Mass/Vol]8.4 mg/dLCritically low8.5-10.1The [facility] HospitalComment on above:Performed By: #### CMP #### [facility] [address] [place] [address] Dr. Oneyda RodriguezChloride [Moles/Vol]105 mmol/QVerctm27-391Cdz [facility] Comment on above:Performed By: #### CMP #### [facility] [address] [place] [address] Dr. Oneyda RodriguezCO2 [Moles/Vol]28.3 mmol/HCpefnl92.0-32.0[facility] Comment on above:Performed By: #### CMP #### [facility] [address] [place] [address] Dr. Oneyda RodriguezCreatinine [Mass/Vol]0.84 mg/dLNormal0.55-1.02The [facility] HospitalComment on above:Performed By: #### CMP #### [facility] [address] [place] [address] Dr. Oneyda MohamudGFR-AF TURKISH>60Normal>=60The [facility] HospitalComment on above:Performed By: #### CMP #### [facility] [address] [place] [address] Dr. Oneyda MohamudGFR-NON AF TURKISH>60Normal>=60The [facility] HospitalComment on above:Performed By: #### CMP #### [facility] [address] [place] [address] Dr. Oneyda RodriguezGlobulin (S) [Mass/Vol]3.3 g/dLNormalThe [facility] HospitalComment on above:Performed By: #### CMP #### [facility] [address] [address] [address] Oneyda RodriguezGlucose [Mass/Vol]85 mg/zQUdxpdt14-447YtuToledo Hospital Comment on above:Performed By: #### CMP #### [facility] [address] [address] [address] Oneyda RodriguezPotassium [Moles/Vol]3.5 mmol/LNormal3.5-5.1The [facility] Comment on above:Performed By: #### CMP #### [facility] [address] [address] [address] Oneyda RodriguezProtein [Mass/Vol]6.9 g/dLNormal6.4-8.2The [facility] Comment on above:Performed By: #### CMP #### [facility] [address] [address] [address] Oneyda Marinadium [Moles/Vol]138 mmol/MBqzvqf066-540Xdd [facility] Comment on above:Performed By: #### CMP #### [facility] [address] [address] [address] Oneyda RodriguezUrea nitrogen [Mass/Vol]14.0 mg/dLNormal7.0-18.0The [facility] HospitalComment on above:Performed By: #### CMP #### [facility] [address] [address] [address] Oneyda Ramirez nitrogen/Creatinine [Mass ratio]16.7 mg/mgNoSt. Mary's Medical CenterComment on above:Performed By: #### CMP #### [facility] [address] [address] [address] Oneyda RodriguezURINE MICROSCOPIC ONLYon [id number]J SEEN [facility] HospitalComment on above:Performed By: #### BILL SANTANA #### [facility] [address] [address] [address] Oneyda Duartectdionne identified Cx Nom (U)INDICATEDNoSt. Mary's Medical CenterComment on above:Performed By: #### ERUR, UMICRO #### [facility] [address] [address] [address] Oneyda Jacobo SEENNormalNONE SEENToledo HospitalComuniversity of [facility] health on above:Performed By: #### ERUR, UMICRO #### [facility] [address] [address] [address] Oneyda Carrillo LM Nom (Urine sed)NONE SEENNormalNONE SEENThe [facility] HospitalComuniversity of [facility] on above:Performed By: #### ERUR, UMICRO #### [facility] [address] [address] [address] Oneyda Schwabthelial cells LM Ql (Urine sed)RARENormalNONE SEEN /RAREThe [facility] HospitalComuniversity of [facility] on above:Performed By: #### ERUEugene, UMICRO #### [facility] [address] [place] [address] Dr. Oneyda Gurrola SEENNormalNONE SEENThe [facility] HospitalComun[facility] of [facility] on above:Performed By: #### ERUEugene UMICRO #### [facility] [address] [address] [address] Oneyda Kramer SEENAbnormal0-2The [facility] on above: Performed By: #### ERUEugene, UMICRO #### [facility] [address] [address] [address] Oneyda Obregon2-5AbnormalNONE SEENThe [facility] HospitalComun[facility] of [facility] on above: Performed By: #### ERUR, UMICRO #### [facility] [address] [address] [address] Oneyda Clarke AUTO DIFFon [id number] #0.1 103/ulNormal0.0-0.1The [facility] on above:Performed By: #### CBC #### [facility] [address] [address] [address] Oneyda RodriguezBasophils/100 WBC (Bld)0.5 %Normal0.2-2.0[facility] Comment on above:Performed By: #### CBC #### [facility] [address] [place] [address] Dr. Oneyda Feldman #0.3 103/ulNormal0.0-0.7The [facility] HospitalComment on above: Performed By: #### CBC #### [facility] [address] [place] [address] Dr. Oneyda Mohamudosinophils/100 WBC (Bld)2.4 %Normal0.9-7.0[facility] Comment on above:Performed By: #### CBC #### [facility] [address] [place] [address] Dr. Oneyda Goveathrocyte distribution width (RBC) [Ratio]14.8 %Ckybuq41.0-15.0 The Parkwood HospitalComment on above:Performed By: #### CBC #### [facility] [address] [place] [address] Dr. Oneyda RodriguezHematocrit (Bld) [Volume fraction]36.0 %Eiuglg09.0-48.0The [facility] HospitalComment on above:Performed By: #### CBC #### [facility] [address] [place] [address] Dr. Oneyda RodriguezHemoglobin (Bld) [Mass/Vol]11.8 g/dLCritically low12.0-16.0The [facility] HospitalComment on above:Performed By: #### CBC #### [facility] [address] [place] [address] Dr. Oneyda Carpenter #0.05 10e3/ulCritically high0.00-0.03The [facility] Comment on above:Performed By: #### CBC #### [facility] [address] [place] [address] Dr. Oneyda Carpenter %0.4 %Normal0.0-0.5The [facility] HospitalComment on above: Performed By: #### CBC #### [facility] [address] [place] [address] Dr. Yilan ChangLYMPH #3.2 103/ulNormal1.2-3.8The [facility] HospitalComment on above:Performed By: #### CBC #### [facility] [address] [place] [address] Dr. Oneyda Statonmphocytes/100 WBC (Bld)24.3 %Fewrpb24.5-60.0The [facility] HospitalComment on above:Performed By: #### CBC #### [facility] [address] [place] [address] Dr. Oneyda Gonzalez DIFF REQNONormalThe [facility]wood HospitalComment on above: Performed By: #### CBC #### [facility] [address] [place] [address] Dr. Oneyda Lucero (RBC) [Entitic mass]29.2 dkCvgerp73.7-34.0The [facility] HospitalComment on above:Performed By: #### CBC #### [facility] [address] [place] [address] Dr. Oneyda Lucero (RBC) [Mass/Vol]32.8 g/wIBfunlu34.9-35.2The [facility] HospitalComment on above:Performed By: #### CBC #### [facility] [address] [place] [address] Dr. Oneyda Mendosa (RBC) [Entitic vol]89.1 fLFtgsmu63.0-99.0The [facility] HospitalComment on above:Performed By: #### CBC #### [facility] [address] [place] [address] Dr. Oneyda Babcock #0.6 103/ulNormal0.3-0.8The [facility] HospitalComment on above:Performed By: #### CBC #### [facility] [address] [place] [address] Dr. Oneyda Jayocytes/100 WBC (Bld)4.9 %Normal1.7-12.0[facility] Comment on above:Performed By: #### CBC #### [facility] [address] [place] [address] Dr. Oneyda Wu #8.8 103/ulCritically high1.4-6.5The [facility] Comment on above:Performed By: #### CBC #### [facility] [address] [place] [address] Dr. Oneyda Dhillonutrophils/100 WBC (Bld)67.5 %Qqnuou31.0-75.0The [facility] HospitalComment on above:Performed By: #### CBC #### [facility] [address] [place] [address] Dr. Oneyda Arguetalet mean volume (Bld) [Entitic vol]12.5 fLNormal9.5-13.5The [facility] HospitalComment on above:Performed By: #### CBC #### [facility] [address] [place] [address] Dr. Oneyda RodriguezPLT213 103/ljUrpktw965-304Xav [facility] HospitalComment on above: Performed By: #### CBC #### [facility] [address] [place] [address] Dr. Oneyda AhumadaC4.04 106/ulCritically low4.20-5.40The [facility] HospitalComment on above:Performed By: #### CBC #### [facility] [address] [place] [address] Dr. Oneyda RodriguezWBC13.1 103/ulCritically high4.0-11.0The [facility] HospitalComment on above:Performed By: #### CBC #### [facility] [address] [place] [address] Dr. Oneyda Diaz 11-84-3099BLD [Mass/Vol]mg/LNormal<=1.0The [facility] HospitalComment on above:Performed By: #### BILL SANTANA #### [facility] [address] [place] [address] Dr. Oneyda RodriguezCT HEAD WO CONon [id number] HEAD WO CONINDICATION: 36 years old; Female. Closed head trauma. Syncope. History of concussion. TECHNIQUE: CT Head (ax/cor/sag reformats). Ionizing radiation dose reduced via iterative reconstruction/FBP blend and body size kV/mA adjustment. Comparison: None FINDINGS: POSTOPERATIVE CHANGES: None. BRAIN PARENCHYMA: No hemorrhage, mass or acute infarct. Normal merchant/white differentiation. VENTRICLES/EXTRA-AXIAL SPACES: Normal in size for patient's age. SINUSES/MASTOIDS: Visualized sinuses are clear. Mastoid air cells are clear. MSK: No skull fractures. OTHER: No hyperdense intraluminal thrombus is seen. IMPRESSION: 1. No acute intracranial abnormality. No hemorrhage or mass effect. This study cannot exclude a concussion type injury. Electronically authenticated by: SHARON MC Date: 2021-11-23 06:36NormCleveland Clinic Euclid Hospitale [facility] HospitalLACTATE/LACTIC ACIDon [id number] [Moles/Vol]0.7 mmol/L Normal0.4-1.9The [facility] HospitalComment on above:Performed By: #### LACT #### [facility] [address] [place] [address] Dr. Oneyda Hickman 14(COMP METB)on [id number] [Mass/Vol]3.9 g/dLNormal 3.4-5.0The [facility] HospitalComment on above:Performed By: #### HENRI SANTANARO #### [facility] [address] [place] [address] Dr. Oneyda RodriguezAlbumin/Globulin [Mass ratio]1.1 {ratio}NormalThe [facility] HospitalComment on above:Performed By: #### MAX UMICRO #### [facility] [address] [place] [address] Dr. Oneyda Talbot [Catalytic activity/Vol]107 U/BAzyiip43-762Zyp [facility] HospitalComment on above:Performed By: #### MAX UMICRO #### [facility] [address] [place] [address] Dr. Oneyda Vasques [Catalytic activity/Vol]62 U/LCritically bgkv90-51Fuf [facility] HospitalComment on above:Performed By: #### MAX UMICRO #### [facility] [address] [place] [address] Dr. Yilan ChangAnion gap [Moles/Vol]12.2 mmol/LNormalToledo Hospital Comment on above:Performed By: #### HENRI SANTANARO #### [facility] [address] [place] [address] Dr. Oneyda RodriguezAST [Catalytic activity/Vol]26 U/MRispwu90-92Bsc [facility] HospitalComment on above:Performed By: #### MAX UMHANGRO #### [facility] [address] [place] [address] Dr. Oneyda RodriguezBilirubin [Mass/Vol]0.3 mg/dLNormal0.2-1.0The [facility] Comment on above:Performed By: #### MAX UMICRO #### [facility] [address] [place] [address] Dr. Oneyda RodriguezCalcium [Mass/Vol]8.8 mg/dLNormal8.5-10.1[facility] Comment on above:Performed By: #### HENRI SANTANARO #### [facility] [address] [place] [address] Dr. Oneyda RodriguezChloride [Moles/Vol]104 mmol/MBjbroe55-054Mtv [facility] Comment on above:Performed By: #### HENRI SANTANARO #### [facility] [address] [place] [address] Dr. Oneyda RodriguezCO2 [Moles/Vol]28.9 mmol/NRbkhtd26.0-32.0[facility] Comment on above:Performed By: #### MAX UMICRO #### [facility] [address] [place] [address] Dr. Oneyda RodriguezCreatinine [Mass/Vol]0.73 mg/dLNormal0.55-1.02The [facility] HospitalComment on above:Performed By: #### MAX UMICRO #### [facility] [address] [place] [address] Dr. Call ChangEGFR-AF TURKISH>60Normal>=60The [facility] HospitalComment on above:Performed By: #### MAX UMICRO #### [facility] [address] [address] [address] Oneyda MohamudGFR-NON AF TURKISH>60Normal>=60The [facility] HospitalComment on above:Performed By: #### MAX UMICRO #### [facility] [address] [address] [address] Oneyda RodriguezGlobulin (S) [Mass/Vol]3.4 g/dLNormalThe [facility] HospitalComment on above:Performed By: #### MAX UMICRO #### [facility] [address] [address] [address] Oneyda RodriguezGlucose [Mass/Vol]105 mg/jQGvznhp03-600Sbj [facility] Comment on above:Performed By: #### MAX UMICRO #### [facility] [address] [place] [address] Dr. Oneyda RodriguezPotassium [Moles/Vol]3.1 mmol/LCritically low3.5-5.1The [facility] HospitalComment on above:Performed By: #### MAX UMICRO #### [facility] [address] [address] [address] Oneyda RodriguezProtein [Mass/Vol]7.3 g/dLNormal6.4-8.2The [facility] Comment on above:Performed By: #### MAX UMICRO #### [facility] [address] [address] [address] Oneyda RodriguezSodium [Moles/Vol]142 mmol/LEftoti448-366Ifo [facility] Comment on above:Performed By: #### MAX UMICRO #### [facility] [address] [address] [address] Oneyda RodriguezUrea nitrogen [Mass/Vol]12.0 mg/dLNormal7.0-18.0The [facility] Hospitalment on above:Performed By: #### MAX UMICRO #### [facility] [address] [address] [address] Oneyda RodriguezUrea nitrogen/Creatinine [Mass ratio]16.4 mg/mgNormalThChillicothe VA Medical CenterComment on above:Performed By: #### BILL SANTANA #### [facility] [address] [place] [address] Dr. Oneyda Bray, HIGH SENSITIVITYon [id number] pg/mLNormal 4.0-51.3The [facility] HospitalComuniversity of [facility] on above:Result Comment: CUT-OFF POINTS HAVE BEEN ESTABLISHED BASED ON THE FOURTH UNIVERSAL DEFINITIONS OF MYOCARDIAL INFARCTION. THE UPPER REFERENCE LIMIT (URL) OF TROPONIN, DEFINED THE 99TH PERCENTILE OF cTnI DISTRIBUTION IN A REFERENCE POPULATION, HAS BEEN CONFIRMED THE DECISION THRESHOLD FOR [place] DIAGNOSIS.Performed By: #### BILL SANTANA #### [facility] [address] [place] [address] Dr. Oneyda RodriguezHCV RNA,Quant,PCRon [id number] RNA,Quant,PCRSpecimen Description .PLASMA Special Requests QUALITATIVE Direct Exam [...] the appropriate Health Department Report Status FINAL 11/01/2020NoWilson Memorial HospitalComment on above: Performed By: #### HCVQ #### [facility] [address] [place] [address] Curb Machine Operator: Valdo Diaz MD [facility] [address] [place] [address] Curb Machine Operator: Mateo Mir [facility] [id number] distribution width (RBC) [Ratio]14.4 %Hujqea98.8-14.4[facility] HospitalComment on above: Performed By: #### IPF, CBC, CP, HCG #### [address] [place] [id number] Curb Machine Operator: Mateo Mir MD #### HIVCMB, PHEP #### [address] [id number] Curb Machine Operator: Valdo Diaz MDHematocrit (Bld) [Volume fraction]38.8 %Normal 36.3-47.1MBellevue HospitalComment on above:Performed By: #### IPF, CBC, CP, HCG #### [address] [place] [id number] Curb Machine Operator: Mateo Mir MD #### HIVCMB, PHEP #### [place] [address] Curb Machine Operator: Valdo Diaz MDHemoglobin (Bld) [Mass/Vol]12.4 g/dLNormal 11.9-15.1MBellevue HospitalComment on above:Performed By: #### IPF, CBC, CP, HCG #### [address] [place] [phone] Curb Machine Operator: Mateo Mir MD #### HIVCMB, PHEP #### [place] [address] Curb Machine Operator: TIFFANY BucioCH (RBC) [Entitic mass]28.0 muLjoebj58.2-33.5 [facility] HospitalComment on above:Performed By: #### IPF, CBC, CP, HCG #### [address] [place] [id number] Curb Machine Operator: Mateo Mir MD #### HIVCMB, PHEP #### [address] [address] Curb Machine Operator: TIFFANY BucioCHC (RBC) [Mass/Vol]32.0 g/eQUmavqn48.4-34.8 Western Reserve HospitalComment on above:Performed By: #### IPF, CBC, CP, HCG #### [address] [place] [id number] Curb Machine Operator: Mateo Mir MD #### HIVCMB, PHEP #### [address] [address] Curb Machine Operator: TIFFANY BucioCV (RBC) [Entitic vol]87.6 zWDjrchy01.6-102.9 [facility] HospitalComment on above:Performed By: #### IPF, CBC, CP, HCG #### [address] [place] [phone] Curb Machine Operator: Mateo Mir MD #### HIVCMB, PHEP #### [address] [place] [address] Curb Machine Operator: Valdo Diaz MDNRBC Automated0.0 per 100 WBCNormal0.0[facility] HospitalComment on above:Performed By: #### IPF, CBC, CP, HCG #### [address] [place] [phone] Curb Machine Operator: Mateo Mir MD #### HIVCMB, PHEP #### [address] [place] [address] Curb Machine Operator: Zurdo Buciotelet CountSee Reflexed IPF ResultNormal 138-453Western [facility] HospitalComuniversity of michigan health on above:Performed By: #### IPF, CBC, CP, HCG #### [address] [place] [phone] Curb Machine Operator: Mateo Mir MD #### HIVCMB, PHEP #### [address] [address] Curb Machine Operator: SHARON BucioBC (Bld) [#/Vol]4.43 10*6/uLNormal3.95-5.11 [facility] HospitalComment on above:Performed By: #### IPF, CBC, CP, HCG #### [address] [place] [address] Curb Machine Operator: Mateo Mir MD #### HIVCMB, PHEP #### [address] [address] Curb Machine Operator: Valdo Diaz MDW (Bld) [#/Vol]8.2 10*3/uLNormal3.5-11.3MBellevue HospitalComment on above:Performed By: #### IPF, CBC, CP, HCG #### [address] [place] [address] Curb Machine Operator: Mateo Mir MD #### HIVCMB, PHEP #### [address] [address] Curb Machine Operator: TIFFANY BucioPVNOT REPORTEDNormal8.1-13.5[facility] HospitalComment on above:Performed By: #### IPF, CBC, CP, HCG #### [address] [place] [address] Curb Machine Operator: Mateo Mir MD #### HIVCMB, PHEP #### [address] [address] Curb Machine Operator: JANES BucioOrdered By: Diego Hernandez on 10-27-2020 Hematocrit (Bld) [Volume fraction]38.8 %36.3 - 47.1 %[facility] Work Phone: Hemoglobin.gastrointestinal spec 1 Ql (Stl)12.4 g/dL 11.9 - 15.1 g/dLSt. [facility] charity: water Phone: MCH (RBC) [Entitic mass]28.0 pg25.2 - 33.5 pgSelect Medical Specialty Hospital - Columbus SouthRecycleMatch Phone: MCHC (RBC) [Mass/Vol]32.0 g/dL28.4 - 34.8 g/dLSt. Francis Hospital charity: water Phone: MCV (RBC) [Entitic vol]87.6 fL82.6 - 102.9 fLSelect Medical Specialty Hospital - Columbus SouthRecycleMatch Phone: NRBC Automated0.00.0 per 100 WBCSt. Francis Hospital charity: water Phone: platelet distribution width (Bld) [Ratio]14.4 %11.8 - 14.4 %[facility] charity: water Phone: platelet mean volume (Bld) [Entitic vol]NOT REPORTED 8.1 - 13.5 [facility] Medical CenterRecycleMatch Phone: platelets (Bld) [#/Vol]See Reflexed IPF [facility] charity: water Phone: rBC (Bld) [#/Vol]4.43 10*6/uL3.95 - 5.11 m/ParkerRecycleMatch Phone: WBC (Bld) [#/Vol]8.2 10*3/ParkerRecycleMatch Phone: comp Metabolic Profon 10-27-2020(cont.)[facility] Medical CenterComment on above:Result Comment: Average GFR for 30-39 years old: 107 mL/min/1.73sq m Chronic Kidney Disease: <60 mL/min/1.73sq m Kidney failure: <15 mL/min/1.73sq m eGFR calculated using average adult body mass. Additional eGFR calculator available at: http://www.[employer].Vineloop/multiple_crcl_2012.htmPerformed By: #### IPF, CBC, CP, HCG #### [address] [place], [place] [phone] Curb Machine Operator: Mateo Mir MD #### HIVCMB, PHEP #### [address] [phone] Curb Machine Operator: Valdo Diaz MDAlbumin [Mass/Vol]3.6 g/dLNormal3.5-5.2MBellevue HospitalComment on above:Performed By: #### IPF, CBC, CP, HCG #### [address] [place] [phone] Curb Machine Operator: Mateo Mir MD #### HIVCMShavon, PHEP #### [place] [phone] Curb Machine Operator: Valdo Diaz MDAlbumin/Glob Ratio1.0Ttsvhp6.0-2.5Western [facility] HospitalComment on above:Performed By: #### IPF, CBC, CP, HCG #### [address] [place] [phone] Curb Machine Operator: Mateo Mir MD #### HIVCMShavon, PHEP #### [place] [address]208 Curb Machine Operator: Chela Buciokaline Zyuf353 U/YRksp36-137FekxtWestern Reserve HospitalComment on above:Performed By: #### IPF, CBC, CP, HCG #### [address] [place] [phone] Curb Machine Operator: Mateo Mir MD #### HIVCMB, PHEP #### [address] [phone] Curb Machine Operator: Valdo Diaz MDALT [Catalytic activity/Vol]65 U/LHigh5-33Western Reserve HospitalComment on above:Performed By: #### IPF, CBC, CP, HCG #### [address] [place], [place] 628[address]83 Curb Machine Operator: Mateo Mir MD #### HIVCMB, PHEP #### [address] [phone] Curb Machine Operator: Valdo Diaz MDAnibest gap [Moles/Vol]8 mmol/LLow9-17Western [facility] HospitalComment on above:Performed By: #### IPF, CBC, CP, HCG #### [address] [place] [phone] Curb Machine Operator: Mateo Mir MD #### HIVCMB, PHEP #### [address] [phone] Curb Machine Operator: Valdo Diaz MDAST [Catalytic activity/Vol]42 U/LHigh<32[facility] HospitalComment on above:Performed By: #### IPF, CBC, CP, HCG #### [address] [place] [phone] Curb Machine Operator: Mateo Mir MD #### HIVCMB, PHEP #### [address] [phone] Curb Machine Operator: Valdo Diaz MDBilirubin [Mass/Vol]0.20 mg/dLLow0.3-1.2[facility] hospitaly [facility]S Medical CenterComment on above:Performed By: #### IPF, CBC, CP, HCG #### [address] [place] [address] Curb Machine Operator: Mateo Mir MD #### HIVCMB, PHEP #### [address] [phone] Curb Machine Operator: Valdo Diaz MDBUN/CRE Xivcx39Vwoyhq8-07Rwzxm [facility] Comment on above:Performed By: #### IPF, CBC, CP, HCG #### [address] [place] [phone] Curb Machine Operator: Mateo Mir MD #### HIVCMB, PHEP #### [address] [phone] Curb Machine Operator: Valdo Diaz MDCalcium [Mass/Vol]9.2 mg/dLNormal8.6-10.4Western [facility] HospitalComment on above:Performed By: #### IPF, CBC, CP, HCG #### [address] [place] 2630983 Curb Machine Operator: Mateo Mir MD #### HIVCMB, PHEP #### [place] [phone] Curb Machine Operator: Valdo Diaz MDChloride [Moles/Vol]107 mmol/DRcrzif46-551NmyhaWestern Reserve HospitalComment on above:Performed By: #### IPF, CBC, CP, HCG #### [address] [place] [phone] Curb Machine Operator: Mateo Mir MD #### HIVCMB, PHEP #### [place] [address]208 Curb Machine Operator: Valdo Diaz MDCO2 [Moles/Vol]26 mmol/FArwiik46-39GtqcdWestern Reserve HospitalComment on above:Performed By: #### IPF, CBC, CP, HCG #### [address] [place] [phone] Curb Machine Operator: Mateo Mir MD #### HIVCMB, PHEP #### [address] [phone] Curb Machine Operator: Valdo Diaz MDCreatinine [Mass/Vol]0.67 mg/dLNormal0.50-0.90 [facility] HospitalComment on above:Performed By: #### IPF, CBC, CP, HCG #### [address] [place], [place] [phone] Curb Machine Operator: Mateo Mir MD #### HIVCMB, PHEP #### [address] [phone] Curb Machine Operator: Valdo Diaz MDGFR, Amer>60Normal>60Western [facility] HospitalComment on above:Performed By: #### IPF, CBC, CP, HCG #### [address] [place], [place] 4296183 Curb Machine Operator: Mateo Mir MD #### HIVCMB, PHEP #### [address] [phone] Curb Machine Operator: Valdo Diaz MDGFR,non Amer>60Normal>60Western [facility] HospitalComment on above:Performed By: #### IPF, CBC, CP, HCG #### [address] [place], [place] 1221383 Curb Machine Operator: Mateo Mir MD #### HIVCMB, PHEP #### [address] [phone] Curb Machine Operator: Valdo Diaz MDGlucose [Mass/Vol]99 mg/uERzcefs10-60PxpfgBellevue HospitalComment on above:Performed By: #### IPF, CBC, CP, HCG #### [address] [place], [place] 3608283 Curb Machine Operator: Mateo Mir MD #### HIVCMB, PHEP #### [address] [phone] Curb Machine Operator: KRISTINA Buciootassium [Moles/Vol]4.2 mmol/LNormal3.7-5.3 [facility] HospitalComment on above:Performed By: #### IPF, CBC, CP, HCG #### [address] [place], [place] 7355283 Curb Machine Operator: Mateo Mir MD #### HIVCMB, PHEP #### [address] [phone] Curb Machine Operator: KRISTINA Buciorotein [Mass/Vol]6.6 g/dLNormal6.4-8.3MBellevue HospitalComment on above:Performed By: #### IPF, CBC, CP, HCG #### [address] [place], [place] 1694983 Curb Machine Operator: Mateo Mir MD #### HIVCMB, PHEP #### [address] [phone] Curb Machine Operator: BASSAM Bucioodium [Moles/Vol]141 mmol/TDpgzsu707-651PyiaxWestern Reserve HospitalComment on above:Performed By: #### IPF, CBC, CP, HCG #### [address] [place] [address] Curb Machine Operator: Mateo Mir MD #### HIVCMB, PHEP #### [address] [phone] Curb Machine Operator: BASSAM Buciotaging:[facility] Medical CenterComment on above:Result Comment: Stage 1: Some kidney damage normal GFR Stage 2: Mild kidney damage GFR 60-89 Stage 3: Moderate kidney damage GFR 30-59 Stage 4: Severe kidney damage GFR 15-29 Stage 5: Severe kidney damage GFR <15 ESRD - chronic treatment by dialysis or transplantPerformed By: #### IPF, CBC, CP, HCG #### [address] [place], [place] 7566783 Curb Machine Operator: Mateo Mir MD #### HIVCMB, PHEP #### [address] [phone] Curb Machine Operator: Valdo Diaz MDUrea nitrogen [Mass/Vol]8 mg/dLNormal6-20Western [facility] HospitalComment on above:Performed By: #### IPF, CBC, CP, HCG #### [facility] [address] [place] [address] Curb Machine Operator: Mateo Mir MD #### HIVCMB, PHEP #### [facility] [address] [place], [place] 1418908 Curb Machine Operator: JUDITH Bucioomprehensive Metabolic PanelOrdered By: Diego Hernandez on [id number] [Mass/Vol]3.6 g/dL3.5 - 5.2 g/dLSt. [facility] Hospital [facility] Work Phone: Olbumin/Globulin [Mass ratio]1.2 {ratio}[facility] Work Phone: NLP (Bld) [Catalytic activity/Vol]174 U/LHigh35 - 104 U/LMercy Health Work Phone: BLT [Catalytic activity/Vol]65 U/LHigh5 - 33 U/LMercy Health Work Phone: Cnion gap [Moles/Vol]8 mmol/LLow9 - 17 mmol/LMercy Health Work Phone: MST [Catalytic activity/Vol]42 U/LHigh<32Mer [facility] Work Phone: Eilirubin [Mass/Vol]0.20 mg/dLLow0.3 - 1.2 mg/dLSelect Medical Specialty Hospital [facility] SouthLandmaster Partners Work Phone: Salcium [Mass/Vol]9.2 mg/dL8.6 - 10.4 mg/dLSelect Medical Specialty Hospital - [facility] SouthLandmaster Partners Work Phone: Xhloride [Moles/Vol]107 mmol/L98 - 107 mmol/LMercy Health Work Phone: QO2 [Moles/Vol]26 mmol/L20 - 31 mmol/LMAmorcyte Phone: creatinine [Mass/Vol]0.67 mg/dL0.50 - 0.90 mg/dLSelect Medical Specialty Hospital - [facility] SouthRecycleMatch Phone: Free PSA/Total PSA [Mass fraction]6.6 g/dL6.4 - 8.3 g/dLSelect Medical Specialty Hospital - [facility] SouthRecycleMatch Phone: GFR >60>60 mL/minSelect Medical Specialty Hospital - Columbus SouthRecycleMatch Phone: GFR Non->60>60 mL/minSelect Medical Specialty Hospital - [facility] SouthRecycleMatch Phone: Glucose [Mass/Vol]99 mg/dL70 - 99 mg/dLSelect Medical Specialty Hospital - [facility] SouthRecycleMatch Phone: Interpretation and review of laboratory results AbnormalSelect Medical Specialty Hospital - Columbus SouthRecycleMatch Phone: potassium [Moles/Vol]4.2 mmol/L3.7 - 5.3 mmol/LMcleveland clinic medina hospitalicix Phone: sodium [Moles/Vol]141 mmol/L135 - 144 mmol/LMAmorcyte Phone: Urea nitrogen (BldV) [Mass/Vol]8 mg/dL6 - 20 mg/dL [facility] Centericix Phone: Urea nitrogen/Creatinine (Bld) [Mass ratio]12[facility] SouthRecycleMatch Phone: HCE Qualitative, SerumOrdered By: Diego Hernandez on [id number] QualNegativeNEGATIVESelect Medical Specialty Hospital - [facility] SouthRecycleMatch Phone: comment on above:Specimens with hCG levels near the threshold of the test (25 mIU/mL) may give a negative or indeterminate result. In such cases, another test should be performed with a new specimen in 48-72 hours. If early is suspected clinically in this setting, correlation with quantitative serum b-hCG level is suggested. [employer] has confirmed the use of plasma for this test. This has not been cleared or approved by the U.S. Food and Drug Administration. The FDA has determined that such clearance is not necessary. HCG Screen, Bloodon [id number] Screen, BloodNegativeNormalNEGWestern Reserve HospitalComment on above:Result Comment: Specimens with hCG levels near the threshold of the test (25 mIU/mL) may give a negative or indeterminate result. In such cases, another test should be performed with a new specimen in 48-72 hours. If early is suspected clinically in this setting, correlation with quantitative serum b-hCG level is suggested. [facility] has confirmed the use of plasma for this test. This has not been cleared or approved by the U.S. Food and Drug Administration. The FDA has determined that such clearance is not necessary.Performed By: #### IPF, HCG, CP, CBC #### [address] [place] [address] Curb Machine Operator: Fidel Hallman MD #### HIVCMB, PHEP #### [address] [phone] Curb Machine Operator: Valdo Diaz MDHIV Ag/Abon [id number] Ag/AbNon-Reactive NormalRegional Medical CenterComment on above:Result Comment: No laboratory evidence of HIV infection. If acute HIV infection is suspected, consider testing for HIV-1 RNA.Performed By: #### IPF, HCG, CP, CBC #### [address] [place] [address] Curb Machine Operator: Fidel Hallman MD #### HIVCMB, PHEP #### [address] [phone] Curb Machine Operator: RENUKA Bucio ScreenOrdered By: Diego Hernandez on [id number] Ag/AbNon-ReactiveNONREACTIVEUpper Valley Medical Center Work Phone: comment on above:No laboratory evidence of HIV infection. If acute HIV infection is suspected, consider testing for HIV-1 RNA. Hepatitis Acute [facility] [id number] A Ab,IgMNon-ReactiveNormalRegional Medical CenterComment on above:Performed By: #### IPF, HCG, CP, CBC #### [facility] [address] [place] [address] Curb Machine Operator: Fidel Hallman MD #### HIVCMB, PHEP #### [address] [place], [place] [phone] Curb Machine Operator: Susan Bucio Core Ab,IgMNon-ReactiveFulton County Health CenterComment on above:Performed By: #### IPF, HCG, CP, CBC #### [facility] [address] [place] [address] [place] [address] Curb Machine Operator: Fidel Hallman MD #### HIVCMB, PHEP #### [address] [phone] Curb Machine Operator: Susan Bucio Surf AgNon-ReactiveFulton County Health CenterComment on above:Performed By: #### IPF, HCG, CP, CBC #### [facility] [address] [place] [address] [place] [address] Curb Machine Operator: Fidel Hallman MD #### HIVCMB, PHEP #### [address] [phone] Curb Machine Operator: Susan Bucio AbReactiveAbMercy Health Fairfield Hospital Comment on above:Result Comment: The hepatitis C procedure used in [...] PCR. Results reported to the appropriate Health DepartmentPerformed By: #### IPF, HCG, CP, CBC #### [facility] [address] [place] [address] Curb Machine Operator: Fidel Hallman MD #### HIVCMB, PHEP #### [facility] [address] [place] [place] [phone] Curb Machine Operator: Valdo Diaz MDHepatitis Panel, AcuteOrdered By: Diego Hernandez on [id number] IgM IA Qn (S)Non-ReactiveNONREACTIVESelect Medical Specialty Hospital [facility] SouthLandmaster Partners Work Phone: Hep B Core Ab, IgMNon-ReactiveNONREACTIVESelect Medical Specialty Hospital [facility] SouthLandmaster Partners Work Phone: Hepatitis B Surface AgNon-ReactiveNONREACTIVESelect Medical Specialty Hospital [facility] SouthLandmaster Partners Work Phone: Hepatitis C AbReactiveAbnormalNONREACTIVESelect Medical Specialty [facility] SouthLandmaster Partners Work Phone: comment on above: The hepatitis C procedure used [...] Health Department Interpretation and review of laboratory resultsAbAt[facility] Health [facility] charity: water Phone: Immature Platelet FractionOrdered By: Diego Hernandez on [id number] and review of laboratory resultsAbAtrium Health Steele Creek charity: water Phone: platelet, [id number] charity: water Phone: platelet, Immature Aoipvxcz89.9 %High1.1 - 10.3 %[facility] charity: water Phone: laboratory - Chemistry and Chemistry - challenge Ordered By: Diego Hernandez on 63-93-8528NUK/1.73 sq M.predicted MDRD (S/P/Bld) [Vol rate/Area][facility] Centericix Phone: comment on above:Average GFR for 30-39 years old: 107 mL/min/1.73sq m Chronic Kidney Disease: <60 mL/min/1.73sq m Kidney failure: <15 mL/min/1.73sq m eGFR calculated using average adult body mass. Additional eGFR calculator available at: http://www.[employer].Vineloop/multiple_crcl_2012.htm Stage 1: Some kidney damage normal GFR Stage 2: Mild kidney damage GFR 60-89 Stage 3: Moderate kidney damage GFR 30-59 Stage 4: Severe kidney damage GFR 15-29 Stage 5: Severe kidney damage GFR <15 ESRD - chronic treatment by dialysis or transplant PLT, Immature Fract.on 63-10-2768Tfwvhyal, Fluoresc.123 k/lNBly514-910Zxxer [facility]S Medical CenterComment on above:Performed By: #### IPF, CBC, CP, HCG #### [address] [place] [address] Curb Machine Operator: Mateo Mir MD #### HIVCMB, PHEP #### [address] [address] Curb Machine Operator: KRISTINA BucioLT, Immature Fract.15.9 %High1.1-10.3[facility]S Medical CenterComment on above:Performed By: #### IPF, CBC, CP, HCG #### [address] [place] [address] Curb Machine Operator: Mateo Mir MD #### HIVCMB, PHEP #### [address] [address] Curb Machine Operator: Valdo Diaz MDHCV RNA,Quant,PCRon [id number] RNA,Quant,PCR Specimen Description .PLASMA Special Requests QUALITATIVE [...] the appropriate Health Department Report Status FINAL 05/13/2020NormalWestern Reserve HospitalComment on above: Performed By: #### IPF, HCG, CP, CBC #### [address] [place] [address] Curb Machine Operator: Fidel Hallman MD #### HIVCMB, PHEP #### [place] [phone] Curb Machine Operator: Avelino Bucio 27-29-6369Eblqyxfgykh distribution width (RBC) [Ratio]14.7 %High11.8-14.4Western Reserve HospitalComment on above:Performed By: #### IPF, HCG, CP, CBC #### [address] [place] [address] Curb Machine Operator: Fidel Hallman MD #### HIVCMB, PHEP #### [place] [address] Curb Machine Operator: Valdo Diaz MDHematocrit (Bld) [Volume fraction]39.7 %Normal 36.3-47.1MBellevue HospitalComment on above:Performed By: #### IPF, HCG, CP, CBC #### [address] [place] [address] Curb Machine Operator: Fidel Hallman MD #### HIVCMB, PHEP #### [place] [address] Curb Machine Operator: Valdo Diaz MDHemoglobin (Bld) [Mass/Vol]12.2 g/dLNormal 11.9-15.1MBellevue HospitalComment on above:Performed By: #### IPF, HCG, CP, CBC #### [address] [place] [phone] Curb Machine Operator: Fidel Hallman MD #### HIVCMB, PHEP #### [address] [phone] Curb Machine Operator: TIFFANY BucioCH (RBC) [Entitic mass]27.6 ucTpuwie03.2-33.5 [facility] HospitalComment on above:Performed By: #### IPF, HCG, CP, CBC #### [address] [place] [phone] Curb Machine Operator: Fidel Hallman MD #### HIVCMB, PHEP #### [address] [phone] Curb Machine Operator: TIFFANY BucioCHC (RBC) [Mass/Vol]30.7 g/nBHcuprv55.4-34.8 [facility] HospitalComment on above:Performed By: #### IPF, HCG, CP, CBC #### [address] [place] [phone] Curb Machine Operator: Fidel Hallman MD #### HIVCMB, PHEP #### [place] [address]8208 Curb Machine Operator: TIFFANY BucioCV (RBC) [Entitic vol]89.8 zAJrrwyo88.6-102.9 [facility] HospitalComment on above:Performed By: #### IPF, HCG, CP, CBC #### [address] [place] [phone] Curb Machine Operator: Fidel Hallman MD #### HIVCMB, PHEP #### [address] [phone] Curb Machine Operator: Valdo Diaz MDNRBC Automated0.0 per 100 WBCNormal0.0[facility] on above:Performed By: #### IPF, HCG, CP, CBC #### [address] [place] [address] Curb Machine Operator: Fidel Hallman MD #### HIVCMB, PHEP #### [address] [address] Curb Machine Operator: Marta Bucio CountSee Reflexed IPF ResultNormal 138-453Western Reserve HospitalComment on above:Performed By: #### IPF, HCG, CP, CBC #### [address] [place] [address] Curb Machine Operator: Fidel Hallman MD #### HIVCMB, PHEP #### [address] [address] Curb Machine Operator: SHARON BucioBC (Bld) [#/Vol]4.42 10*6/uLNormal3.95-5.11 [facility] HospitalComment on above:Performed By: #### IPF, HCG, CP, CBC #### [address] [place] [address] Curb Machine Operator: Fidel Hallman MD #### HIVCMB, PHEP #### [address] [address] Curb Machine Operator: Valdo Diaz MDW (Bld) [#/Vol]8.9 10*3/uLNormal3.5-11.3MBellevue HospitalComment on above:Performed By: #### IPF, HCG, CP, CBC #### [address] [place] [address] Curb Machine Operator: Fidel Hallman MD #### HIVCMB, PHEP #### [address] [address] Curb Machine Operator: TIFFANY BucioPVNOT REPORTEDNormal8.1-13.5Western Reserve HospitalComment on above:Performed By: #### IPF, HCG, CP, CBC #### [facility] [address] [place] [address] Curb Machine Operator: Fidel Hallman MD #### HIVCMB, PHEP #### [facility] [address] [place] [address] Curb Machine Operator: Valdo Diaz MDErythrocyte distribution width (RBC) [Ratio]14.7 %High11.8 - 14.4 %[facility], KYHematocrit (Bld) [Volume fraction]39.7 % 36.3 - 47.1 %[facility], NYHemoglobin (Bld) [Mass/Vol]12.2 g/dL11.9 - 15.1 g/dLWayne HealthCare Main Campus, NYInterpretation and review of laboratory resultsAbnormal [facility]-Titus Medical CenterH (RBC) [Entitic mass]27.6 pg25.2 - 33.5 pgWayne HealthCare Main Campus, [facility]OK[facility] ARROWHC (RBC) [Mass/Vol]30.7 g/dL28.4 - 34.8 g/dLFisher-Titus Medical CenterV (RBC) [Entitic vol]89.8 fL82.6 - 102.9 fLWayne HealthCare Main Campus, NYPlatelet mean volume (Bld) [Entitic vol]NOT REPORTED8.1 - 13.5 fLWayne HealthCare Main Campus, NYPlatelets (Bld) [#/Vol]See Reflexed IPF ResultWayne HealthCare Main Campus, NYRBC (Bld) [#/Vol]4.42 10*6/uL3.95 - 5.11 m/[facility], KYWBC (Bld) [#/Vol]0.0 10*3/uL0.0 per 100 WBCWayne HealthCare Main Campus, NYWBC (Bld) [#/Vol]8.9 10*3/uLWayne HealthCare Main Campus, KYComp Metabolic Profon 05-12-2020(cont.)NormalWestern Reserve HospitalComment on above: Result Comment: Average GFR for 30-39 years old: 107 mL/min/1.73sq m Chronic Kidney Disease: <60 mL/min/1.73sq m Kidney failure: <15 mL/min/1.73sq m eGFR calculated using average adult body mass. Additional eGFR calculator available at: http://www.[employer].Vineloop/multiple_crcl_2012.htmPerformed By: #### IPF, HCG, CP, CBC #### [address] [place] [address] Curb Machine Operator: Fidel Hallman MD #### HIVCMB, PHEP #### [place] [address] Curb Machine Operator: Valdo Diaz MDAlbumin [Mass/Vol]3.9 g/dLNormal3.5-5.2M[facility]vel[facility] clinic [facility] hospitaly [facility]S Medical CenterComment on above:Performed By: #### IPF, HCG, CP, CBC #### [address] [place] [address] Curb Machine Operator: Fidel Hallman MD #### HIVCMB, PHEP #### [place] [address] Curb Machine Operator: Valdo Diaz MDAlbumin/Glob Ratio1.8Ybzfyv4.0-2.5Western Reserve HospitalComment on above:Performed By: #### IPF, HCG, CP, CBC #### [address] [place] [id number] Curb Machine Operator: Fidel Hallman MD #### HIVCMB, PHEP #### [place] [id number] Curb Machine Operator: Chela Buciokaline Nutr479 U/HNrge24-274XmbjtWestern Reserve HospitalComment on above:Performed By: #### IPF, HCG, CP, CBC #### [address] [place] [id number] Curb Machine Operator: Fidel Hallman MD #### HIVCMB, PHEP #### [address] [place] [address] Curb Machine Operator: THEODORA Bucio [Catalytic activity/Vol]98 U/LHigh5-33Western [facility] HospitalComment on above:Performed By: #### IPF, HCG, CP, CBC #### [address] [place] [address] Curb Machine Operator: Fidel Hallman MD #### HIVCMB, PHEP #### [address] [place] [address] Curb Machine Operator: Sharri Bucio gap [Moles/Vol]11 mmol/LNormal9-17[facility] Reserve HospitalComment on above:Performed By: #### IPF, HCG, CP, CBC #### [address] [place] [phone] Curb Machine Operator: Fidel Hallman MD #### HIVCMB, PHEP #### [address] [phone] Curb Machine Operator: YAHIR Bucio [Catalytic activity/Vol]51 U/LHigh<32[facility] HospitalComment on above:Performed By: #### IPF, HCG, CP, CBC #### [address] [place] [address] Curb Machine Operator: Fidel Hallman MD #### HIVCMB, PHEP #### [address] [address] Curb Machine Operator: Valdo Diaz MDBilirubin [Mass/Vol]0.20 mg/dLLow0.3-1.2MBellevue HospitalComment on above:Performed By: #### IPF, HCG, CP, CBC #### [address] [place] [phone] Curb Machine Operator: Fidel Hallman MD #### HIVCMB, PHEP #### [address] [place] [address] Curb Machine Operator: Valdo Diaz MDBUN/CRE Ospug18Npnljl4-95Kxjld [facility] Comment on above:Performed By: #### IPF, HCG, CP, CBC #### [address] [place] [address] Curb Machine Operator: Fidel Hallman MD #### HIVCMB, PHEP #### [address] [address] Curb Machine Operator: JUDITH Bucioalcium [Mass/Vol]9.3 mg/dLNormal8.6-10.4Western Reserve HospitalComment on above:Performed By: #### IPF, HCG, CP, CBC #### [address] [place] [address] Curb Machine Operator: Fidel Hallman MD #### HIVCMB, PHEP #### [address] [address] Curb Machine Operator: JUDITH Buciohloride [Moles/Vol]109 mmol/JHtig42-343UhjtpWestern Reserve HospitalComment on above:Performed By: #### IPF, HCG, CP, CBC #### [address] [place] [address] Curb Machine Operator: Fidel Hallman MD #### HIVCMB, PHEP #### [address] [address] Curb Machine Operator: Valdo Diaz MDCO2 [Moles/Vol]23 mmol/ZGxuscm22-58BrbhlWestern Reserve HospitalComment on above:Performed By: #### IPF, HCG, CP, CBC #### [address] [place] [phone] ( Curb Machine Operator: Fidel Hallman MD #### HIVCMB, PHEP #### [address] [place], [place] [phone] Curb Machine Operator: JUDITH Bucioreatinine [Mass/Vol]0.69 mg/dLNormal0.50-0.90 [facility] HospitalComment on above:Performed By: #### IPF, HCG, CP, CBC #### [address] [place] [phone] Curb Machine Operator: Fidel Hallman MD #### HIVCMB, PHEP #### [address] [phone] Curb Machine Operator: Valdo Diaz MDGFR, Amer>60Normal>60[facility]'S Medical CenterComment on above:Performed By: #### IPF, HCG, CP, CBC #### [address] [place] [phone] Curb Machine Operator: Fidel Hallman MD #### HIVCMB, PHEP #### [address] [phone] Curb Machine Operator: Valdo Diaz MDGFR,non Amer>60Normal>60[facility]S Medical CenterComment on above:Performed By: #### IPF, HCG, CP, CBC #### [address] [place] [address] Curb Machine Operator: Fidel Hallman MD #### HIVCMB, PHEP #### [address] [address] Curb Machine Operator: Valdo Diaz MDGlucose [Mass/Vol]154 mg/qMDciy22-10PvduuBellevue HospitalComment on above:Performed By: #### IPF, HCG, CP, CBC #### [address] [place] [phone] Curb Machine Operator: Fidel Hallman MD #### HIVCMB, PHEP #### [address] [address] Curb Machine Operator: KRISTINA Buciootassium [Moles/Vol]3.9 mmol/LNormal3.7-5.3 [facility] HospitalComment on above:Performed By: #### IPF, HCG, CP, CBC #### [address] [place] [address] Curb Machine Operator: Fidel Hallman MD #### HIVCMB, PHEP #### [place] [id number] Curb Machine Operator: Valdo Diaz MDProtein [Mass/Vol]7.0 g/dLNormal6.4-8.3MRiverview Health Institute HospitalComment on above:Performed By: #### IPF, HCG, CP, CBC #### [address] [place] [phone] Curb Machine Operator: Fidel Hallman MD #### HIVCMB, PHEP #### [place] [address] Curb Machine Operator: BASSAM Bucioodium [Moles/Vol]143 mmol/PHfwyxq366-158DuovbWestern Reserve HospitalComment on above:Performed By: #### IPF, HCG, CP, CBC #### [address] [place] [phone] Curb Machine Operator: Fidel Hallman MD #### HIVCMB, PHEP #### [address] [phone] Curb Machine Operator: BASSAM Buciotaging:[facility] HospitalComment on above:Result Comment: Stage 1: Some kidney damage normal GFR Stage 2: Mild kidney damage GFR 60-89 Stage 3: Moderate kidney damage GFR 30-59 Stage 4: Severe kidney damage GFR 15-29 Stage 5: Severe kidney damage GFR <15 ESRD - chronic treatment by dialysis or transplantPerformed By: #### IPF, HCG, CP, CBC #### [facility] [address] [place] [address] Curb Machine Operator: Fidel Hallman MD #### HIVCMB, PHEP #### [facility] [address] [place], [place] [phone] Curb Machine Operator: Valdo Diaz MDUrea nitrogen [Mass/Vol]10 mg/dLNormal6-20Western Reserve HospitalComment on above:Performed By: #### IPF, HCG, CP, CBC #### [facility] [address] [place] [address] Curb Machine Operator: Fidel Hallman MD #### HIVCMB, PHEP #### [facility] [address] [place], [place] [phone] Curb Machine Operator: Valdo Diaz [facility] – TALIHINAomprehensive Metabolic Panelon 05-12-2020 Albumin [Mass/Vol]3.9 g/dL3.5 - 5.2 g/dLUpper Valley Medical Center- [place], KYAlbumin/Globulin [Mass ratio]1.3 {ratio}[facility]- [place], KYALP [Catalytic activity/Vol]122 U/L High35 - 104 U/[facility]- [place], KYALT [Catalytic activity/Vol]98 U/LHigh5 - 33 U/[facility]- [place], KYAnion gap [Moles/Vol]11 mmol/L9 - 17 mmol/LMercy Health- [place], KYAST [Catalytic activity/Vol]51 U/LHigh<32[facility]- [place], KYBilirubin Ql (U)0.20 mg/dLLow0.3 - 1.2 mg/dLSt. [facility]- [place], KYBun/Cre Nbooq65Bgmpm Health- [place], KYCalcium [Mass/Vol]9.3 mg/dL8.6 - 10.4 mg/dLSt. [facility]- [place], KYChloride [Moles/Vol]109 mmol/LHigh98 - 107 mmol/LMcleveland clinic medina hospitaly Health- [place], KYCO2 [Moles/Vol]23 mmol/L20 - 31 mmol/LMercy Health- [place], KYCreatinine [Mass/Vol]0.69 mg/dL0.5 - 0.9 mg/dLWayne HealthCare Main Campus, KYGFR >60>60 mL/minMerCascade Valley Hospital- [place], [place] GFR Non->60>60 mL/minMerCascade Valley Hospital- [place], KYGlucose [Mass/Vol]154 mg/iCKuly05 - 99 mg/dLWayne HealthCare Main Campus, KYInterpretation and review of laboratory resultsAbnormalMerDunlap Memorial Hospital, KYPotassium [Moles/Vol]3.9 mmol/L3.7 - 5.3 mmol/LMcleveland clinic medina hospitaly [facility]- [place], KYProtein [Mass/Vol]7.0 g/dL6.4 - 8.3 g/dLUniversity Hospitals [facility] [place], KYSodium [Moles/Vol]143 mmol/L135 - 144 mmol/[facility]- [place], [place] Urea nitrogen [Mass/Vol]10 mg/dL6 - 20 mg/dLWayne HealthCare Main Campus, KYHCG Qualitative, Serumon [id number] QualNegativeNEGATIVEWayne HealthCare Main Campus, KYComment on above: Specimens with hCG levels near the threshold of the test (25 mIU/mL) may give a negative or indeterminate result. In such cases, another test should be performed with a new specimen in 48-72 hours. If early is suspected clinically in this setting, correlation with quantitative serum b-hCG level is suggested. [employer] has confirmed the use of plasma for this test. This has not been cleared or approved by the U.S. Food and Drug Administration. The FDA has determined that such clearance is not necessary. HCG Screen, Bloodon [id number] Screen, BloodNegativeNormalNEGWestern Reserve HospitalComment on above:Result Comment: Specimens with hCG levels near the threshold of the test (25 mIU/mL) may give a negative or indeterminate result. In such cases, another test should be performed with a new specimen in 48-72 hours. If early is suspected clinically in this setting, correlation with quantitative serum b-hCG level is suggested. [employer] has confirmed the use of plasma for this test. This has not been cleared or approved by the U.S. Food and Drug Administration. The FDA has determined that such clearance is not necessary.Performed By: #### IPF, HCG, CP, CBC #### [address] [place], [place] 1120[address] Curb Machine Operator: Fidel Hallman MD #### HIVCMB, PHEP #### [address] [place] [address] Curb Machine Operator: Valdo Diaz MDHIV Ag/Abon 52-32-8363LKI Ag/AbNon-Reactive NormalNRWestern Reserve HospitalComment on above:Result Comment: No laboratory evidence of HIV infection. If acute HIV infection is suspected, consider testing for HIV-1 RNA.Performed By: #### IPF, HCG, CP, CBC #### [address] [place], [place] 6[address] Curb Machine Operator: Fidel Hallman MD #### HIVCMB, PHEP #### [address] [address] Curb Machine Operator: RENUKA Bucio Screenon 61-63-1585MLI Ag/AbNONREACTIVE NONREBarberton Citizens Hospital, KYComment on above:No laboratory evidence of HIV infection. If acute HIV infection is suspected, consider testing for HIV-1 RNA. Hepatitis Acute [facility]anner [id number] A Ab,IgMNon-ReactiveNormProMedica Bay Park Hospital HospitalComment on above:Performed By: #### IPF, HCG, CP, CBC #### [address] [place] [address] Curb Machine Operator: Fidel Hallman MD #### HIVCMB, PHEP #### [address] [place] [address] Curb Machine Operator: Susan Bucio B Core Ab,IgMNon-ReactiveNormVeterans Health AdministrationComment on above:Performed By: #### IPF, HCG, CP, CBC #### [address] [place], [place] 1310983 Curb Machine Operator: Fidel Hallman MD #### HIVCMB, PHEP #### [address] [place], [place] 2935808 Curb Machine Operator: Susan Bucio AgNCleveland Clinic Children's Hospital for RehabilitationComment on above:Performed By: #### IPF, HCG, CP, CBC #### [address] [place], [place] 4207783 Curb Machine Operator: Fidel Hallman MD #### HIVCMB, PHEP #### [address] [phone] Curb Machine Operator: Susan Bucio [facility] Comment on above:Result Comment: The hepatitis C procedure used in [...] PCR. Results reported to the appropriate Health DepartmentPerformed By: #### IPF, HCG, CP, CBC #### [address] [place], [place] [address] Curb Machine Operator: Fidel Hallman MD #### HIVCMB, PHEP #### [address] [phone] Curb Machine Operator: Jefry Bucio Panel, Acuteon [id number] IgM IA Qn (S)NONREACTIVENONREACTIVEMer Health- [place], KYHep B Core Ab, IgMNONREACTIVE NONREACTIVEMer Health- [place], KYHepatitis B Surface AgNONREACTIVENONREACTIVEWayne HealthCare Main Campus, KYHepatitis C AbREACTIVEAbnormalNONREACTIVEWayne HealthCare Main Campus, [place] Comment on above: The hepatitis C [...] Health Department Interpretation and review of laboratory resultsAbLanc[place], [place] Immature Platelet Fractionon 78-35-5037Hztzyogcyvmezm and review of laboratory resultsAbLancaster, KYPlatelet, Uzwiohxjivuy861SidMjcrb Health- [place], KYPlatelet, Immature Ylfpcmfa37.6 %High1.1 - 10.3 %[place], [place] Metabolic Panelon [id number]/1.73 sq M predicted among non-blacks MDRD (S/P/Bld) [Vol rate/Area][place], KYComment on above:Average GFR for 30-39 years old: 107 mL/min/1.73sq m Chronic Kidney Disease: <60 mL/min/1.73sq m Kidney failure: <15 mL/min/1.73sq m eGFR calculated using average adult body mass. Additional eGFR calculator available at: http://www.[employer]/multiple_crcl_2012.htm Stage 1: Some kidney damage normal GFR Stage 2: Mild kidney damage GFR 60-89 Stage 3: Moderate kidney damage GFR 30-59 Stage 4: Severe kidney damage GFR 15-29 Stage 5: Severe kidney damage GFR <15 ESRD - chronic treatment by dialysis or transplant PLT, Immature Fract.on 99-73-4403Xgvfksfl, Fluoresc.103 k/oLYez143-511CuqovWestern Reserve HospitalComment on above:Performed By: #### IPF, HCG, CP, CBC #### [facility] [address] [place] [address] Curb Machine Operator: Fidel Hallman MD #### HIVCMShavon, PHEP #### [facility] BlogCN [address] [place] [address] Curb Machine Operator: LYN Bucio, Immature Fract.15.6 %High1.1-10.3[facility]'S Medical CenterComment on above:Performed By: #### IPF, HCG, CP, CBC #### [facility] [address] [place], [place] [phone] Curb Machine Operator: Fidel Hallman MD #### HIVCMB, PHEP #### [facility] [address] [place] [address] Curb Machine Operator: Nelia Bucio Opiate Conf-Mayoon 09-71-7302Bw Codeine-Hung 64 ng/mLNormalCutoff: 25[facility] SystemComment on above:Performed By: #### CBC #### [address], [place] [address]Wd Dihydrocodeine-MayoNegativeNormalCutoff: 25St. [facility]'S HospitalComment on above:Performed By: #### CBC #### [address], [place] [address]Sl Hydrocodone-MayoNegativeNormalCutoff: 25[facility] SystemComment on above:Performed By: #### CBC #### [address], [place] [address] Hydromorphone-MayoNegativeNormalCutoff: 25St. [facility]'S HospitalComment on above:Performed By: #### CBC #### [address], [place] [address]Pc Morphine-Muoy2987 ng/mLNormalCutoff: 25St. [facility]'S HospitalComment on above:Performed By: #### CBC #### [address], [place] [address]Sp Naloxone-MayoNegativeNormalCutoff: 25[facility] SystemComment on above:Performed By: #### CBC #### [address], [place] [address]Uz Norhydrocodone-MayoNegativeNormalCutoff: 25St. [facility]'S HospitalComment on above:Performed By: #### CBC #### [address], [place] [address]Oo Noroxycodone-MayoNegativeNormalCutoff: 25St. [facility]'S HospitalComment on above:Performed By: #### CBC #### [address] [address]Ip Noroxymorphone-MayoNegativeNormalCutoff: 25St. [facility]'S HospitalComment on above:Performed By: #### CBC #### [address] [address]Kd Opiates Interp-MayoPositiveNormalSt. Rita'S HospitalComment on above:Result Comment: ADDITIONAL INFORMATION This report is intended for use in clinical monitoring and management of patients. It is not intended for use in employment-related testing. This test was developed and its performance characteristics determined by [facility] in a manner consistent with CLIA requirements. This test has not been cleared or approved by the U.S. Food and Drug Administration. Test Performed by: [place] [address] Curb Machine Operator: Santiago Mendoza M.D. Ph.D.; CLIA# [id number] By: #### CBC #### [address] [address]Eo Oxycodone-MayoNegativeNormalCutoff: [address] [place], [place] [address]Comment on above:Performed By: #### CBC #### [address] [address]Tt Oxymorphone-MayoNegativeNormalCutoff: [address] [place], [place] [address]Comment on above:Performed By: #### CBC #### [address] [address]YDk Total Abs-Mayoon 81-72-2124DXd Total Ab-MayoNegativeNormal NegativeSt. Rita'S HospitalComment on above:Result Comment: Test Performed by: [place] [address] Curb Machine Operator: Santiago Mendoza M.D. Ph.D.; CLIA# [id number] By: #### CBC #### [address] [address]CWB RNA Qnt-[facility] 36-89-5602HofM RNA PCR Qnt-Kuom487451 IU/mL AbnormalUndetectedSt. Rita'S HospitalComment on above:Result Comment: Result in log IU/mL is 5.71. ADDITIONAL INFORMATION The quantification range of this assay is 15 to 100,000,000 IU/mL (1.18 log to 8.00 log IU/mL). Testing was performed using the kendrick HCV test ([employer] with the kednrick PushPage0 System. Test Performed by: [place] [address] Curb Machine Operator: Santiago Mendoza M.D. Ph.D.; CLIA# [id number] By: #### CBC #### [address] [address].eGFRon 37-29-4341hOZD AA>60Normal>=60St. [facility]'S HospitalComment on above:Order Comment: Order added by Discern ruleResult Comment: Result = 0-14.9 mL/min/1.73 m2 Kidney failure or Dialysis Result = 15-29 mL/min/1.73 m2 Severe decrease in GFR Result = 30-59 mL/min/1.73 m2 Moderate decrease in GFR Result >= 60 mL/min/1.73 m2 Normal or increased GFRPerformed By: #### .Automated Diff #### [address] [address]iNPB Non-AA>60Normal>=60St. [facility]'S HospitalComment on above:Order Comment: Order added by Discern ruleResult Comment: Result = 0- 14.9 mL/min/1.73 m2 Kidney failure or Dialysis Result = 15-29 mL/min/1.73 m2 Severe decrease in GFR Result = 30-59 mL/min/1.73 m2 Moderate decrease in GFR Result >= 60 mL/min/1.73 m2 Normal or increased GFR Chronic kidney disease is defined as either kidney damage or GFR < 60 mL/min/1.73 m2 for >= 3months. Kidney damage is defined as pathologic abnormalities or markers of damage including abnormalities in blood or urine tests or imaging studies. This GFR is NOT used for medication dosing. Performed By: #### .Automated Diff #### [address] [address]WWFfo 72-95-3156Abfpjmj [Mass/Vol]3.4 g/dLNormal3.2-4.9 [facility] HospitalComment on above:Result Comment: [facility] Laboratory updated the methodology used for albumin testing on 02/06/18. Albumin measurement was performed using a bromcresol purple dye-binding assay.Performed By: #### .Automated Diff #### [address] [address]Ipfcmkb/Globulin [Mass ratio]1.1 {ratio}Normal1.1-2.2BWestern Reserve HospitalComment on above:Performed By: #### .Automated Diff #### [address] [address]Bys Ckol070 IU/UZaih64-70WxvpechrjSt. Rita'S HospitalComment on above:Performed By: #### .Automated Diff #### [address] [address]XTN [Catalytic activity/Vol]76 U/ASafa50-35CamlrymwnSt. Rita'S HospitalComment on above:Performed By: #### .Automated Diff #### [address] [address]Fycpm gap [Moles/Vol]13 mmol/LNormal7-17St. [facility]'S HospitalComment on above:Performed By: #### .Automated Diff #### [address] [address]TRC [Catalytic activity/Vol]53 U/AMzls49-35JppgbqgeqSt. Rita'S HospitalComment on above:Performed By: #### .Automated Diff #### [address] [address]Fdax Total0.5 mg/dLNormal0.3-1.2BWestern Reserve Hospital Comment on above:Performed By: #### .Automated Diff #### [address] [address]Ilrtehw [Mass/Vol]8.7 mg/dLNormal8.5-10.3BWestern Reserve HospitalComment on above:Performed By: #### .Automated Diff #### [address] [address]Reabeayb [Moles/Vol]104 mmol/LEeayql18-736LqteiiqhdSt. Rita'S HospitalComment on above:Performed By: #### .Automated Diff #### [address] [address]YD2 [Moles/Vol]26 mmol/YJffsnz48-96JeulimiusSt. Rita'S HospitalComment on above:Performed By: #### .Automated Diff #### [address] [address]Xshvlfddka [Mass/Vol]0.75 mg/dLNormal0.44-1.03St. [facility]'S HospitalComment on above:Performed By: #### .Automated Diff #### [address] [address]Mgrkaze [Mass/Vol]100 mg/vPNaff74-18LodjzbjruSt. Rita'S HospitalComment on above:Performed By: #### .Automated Diff #### [address] [address]Tzwvstlcq [Moles/Vol]3.7 mmol/LNormal3.4-4.8BWestern Reserve HospitalComment on above:Performed By: #### .Automated Diff #### [address] [address]Dxughga [Mass/Vol]6.5 g/dLNormal6.5-8.1BWestern Reserve HospitalComment on above:Performed By: #### .Automated Diff #### [address] [address]Dkmido [Moles/Vol]139 mmol/AZabodv873-779BbyjphpczSt. Rita'S HospitalComment on above:Performed By: #### .Automated Diff #### [address] [address]Rwva nitrogen [Mass/Vol]15 mg/dLNormal8-26St. [facility]'S HospitalComment on above:Performed By: #### .Automated Diff #### [address] [address]Bunr nitrogen/Creatinine [Mass ratio]20.0 mg/ufYxnrxu87.0-20.0 [facility]'S HospitalComment on above:Performed By: #### .Automated Diff #### [address] [address]Kkkzu & GC, DNAon 57-32-3889Fipogmruh, DNANegativeNormal NegativeSt. Rita'S HospitalComment on above:Result Comment: The APTIMA Combo 2 Assay is a target amplification nucleic acid probe test that util izes target capture for the in-vitro qualitative detection [...] laboratory and clinical data available to the clinician.Performed By: #### CBC #### [address] [address]Qteuvxloe, DNANegativeNormalNegativeSt. Rita'S HospitalComment on above:Result Comment: The APTIMA Combo 2 Assay is a target amplification nucleic acid probe test that utilizes target capture for the in- vitro qualitative detection of ribosomal RNA (rRNA) form Chlamydia tr achomatis/CT and /or Neisseria gonorrhoeae/GC A negative result does not preclude the presence of a CT or GC infection because results are dependent of adequate specimen collection, absence of inhibitors and sufficient rRNA to be detected. Results from the APTIMA Combo 2 Assay should be interpreted in conjunction with other laboratory and clinical data available to the clinician.Performed By: #### CBC #### [address] [place], [place] [address]Lthiedcat Clinical Summaryon [id number] Clinical SummaryMilitary Health System [address] [place] [address] [address] Clinical Summary Person Information Name: Farideh Hus Age: 34 Years : 1985 Sex: Female PCP: Marital Status: Single Phone: PCP: Race: White Ethnicity: Not or Language: Liberian Visit Id: Visit Reason: Drug withdrawal Speciality: Acuity: Enc Type: Observation Med Service: X Medication Withdrawal Management Arrival: 12/02/2019 03:53:05 Discharge: Dispo Type: Place in Observation Address: [address] [place] [address] Diagnosis: 1:Heroin addiction; 2:Tobacco user; 3:Transaminitis; 4:Hepatitis [...] hours. Follow up 12/03/19 11:17:00 EDT, Provider: Tal Gaspar MD, 1 to 2 weeks, Hep c. Follow up 12/03/19 12:52:00 EDT, 1 to 2 days, [facility] [place] scheduled tomorrow. Allergies No Known Allergies [...] range between ( 27.2 and 40.8 ) Iron Auto: 4.2 % -- Normal range between [...] range between ( 36.0 and 46.0 ) Iron Absolute: 0.4 x10 MCH: 28.6 pg -- [...] YOUR HOSPITAL STAY New Medications [facility], [address] [place], [place] [id number], [phone] baclofen (baclofen 10 mg oral tablet) 10 [...] OF YOUR PATIENT?S CURRENT MEDICATIONS [facility], [address] [place], [place] [id number], [phone] baclofen (baclofen 10 mg oral tablet) 10 [...] Follow up: With: Address: When: [facility] and [place] [address] [place] [address] 12/08/2019 12:30:00 Comments: Intake and diagnostic assessment With: Address: When: [facility] and [place] [address] [place] [address] 12/04/2019 13:00:00 Comments: Case management appointmentNoMemorial Health System Selby General HospitalLipid Panelon 69-20-1426Pjkdwefuiwn in LDL [Mass/Vol]97 mg/dLNormal0-99St. [facility]'S HospitalComment on above:Result Comment: The equation being used in this calculation is LDL = (Chol - HDL) - (Trig / 5) The optimal value of LDL for individual patients may vary. The patient's history of Artherosclerosis and other cardiac risk factors should be considered.Performed By: #### .Automated Diff #### [address] [address]Swnslpk Risk6.3NoMemorial Health System Selby General HospitalComment on above:Result Comment: Men Women 1/2 Average 3.43 3.27 Average 4.97 4.44 2x Average 9.55 7.05 3x Average 23.99 11.04Performed By: #### .Automated Diff #### [address] [address]Blghkkahfug [Mass/Vol]151 mg/hTIvcglp69-200RzjgireodSt. Rita'S HospitalComment on above:Result Comment: 0 - 17 years of age: Desirable 0-170 Borderline High 170-199 High >=200 18 years and older: Acceptable <200 Borderline High 200-239 High >=240Performed By: #### .Automated Diff #### [address] [address]Cppfeyjltzo in HDL [Mass/Vol]24.0 mg/dLLow40.0-60.0St. Rita'S HospitalComment on above:Performed By: #### .Automated Diff #### [address] [address]Ouknarhcgkx in VLDL [Mass/Vol]30 mg/dLNormal8-39St. Rita'S HospitalComment on above:Performed By: #### .Automated Diff #### [address] [address]Jcsiornbwxlk [Mass/Vol]152 mg/dLNormalSt. Rita'S HospitalComment on above:Result Comment: 0 - 17 years of age: Trig 90 - 129 Borderline High Trig => 130 High 18 years and older: Trig 150 - 199 Borderline High Trig 200 - 499 High Trig =>500 Very HighPerformed By: #### .Automated Diff #### [address] [address].eGFRon 59-85-9816aFAW AA>60Normal>=60St. Rita'S HospitalComment on above:Result Comment: Result = 0-14.9 mL/min/1.73 m2 Kidney failure or Dialysis Result = 15-29 mL/min/1.73 m2 Severe decrease in GFR Result = 30-59 mL/min/1.73 m2 Moderate decrease in GFR Result >= 60 mL/min/1.73 m2 Normal or increased GFRPerformed By: #### EGFR #### [address] [address]fBVP Non-AA>60Normal>=60St. [facility]'S HospitalComment on above:Result Comment: Result = 0-14.9 mL/min/1.73 m2 Kidney failure or Dialysis Result = 15-29 mL/min/1.73 m2 Severe decrease in GFR Result = 30-59 mL/min/1.73 m2 Moderate decrease in GFR Result >= 60 mL/min/1.73 m2 Normal or increased GFR Chronic kidney disease is defined as either kidney damage or GFR < 60 mL/min/1.73 m2 for >= 3months. Kidney damage is defined as pathologic abnormalities or markers of damage including abnormalities in blood or urine tests or imaging studies. This GFR is NOT used for medication dosing. Performed By: #### EGFR #### [address] [address]UBI w/ Diffon 86-20-0261Oqqnrpjdtlz distribution width (RBC) [Ratio]15.1 %High11.6-14.8BWestern Reserve HospitalComment on above: Performed By: #### CBC #### [address] [address]Pypvgcozbg (Bld) [Volume fraction]35.2 %Low36.0-46.0St[facility]'S HospitalComment on above:Performed By: #### CBC #### [address] [address]Etmmbddtbh (Bld) [Mass/Vol]11.9 g/dLLow12.0-16.0St[facility]'S HospitalComment on above:Performed By: #### CBC #### [address] [address]EDX (RBC) [Entitic mass]28.6 sbEbeymc23.0-35.0St[facility]'S HospitalComment on above:Performed By: #### CBC #### [address] [address]KYON (RBC) [Mass/Vol]33.9 %Tbohhg06.0-37.0St[facility]S HospitalComment on above:Performed By: #### CBC #### [address] [address]NBZ (RBC) [Entitic vol]84.4 oUZvgour36.0-100.0St[facility]S HospitalComment on above:Performed By: #### CBC #### [address] [address]Gfdxpcnk mean volume (Bld) [Entitic vol]11.6 fLHigh6.7-10.6 [facility] HospitalComment on above:Performed By: #### CBC #### [address] [address]Aewolorqw (Bld) [#/Vol]94 x10*3/qoDAnh080-104BpylttnawSt. Rita'S HospitalComment on above:Performed By: #### CBC #### [address] [address]WZR (Bld) [#/Vol]4.17 x10*6/mcLNormal3.80-5.20St[facility]'S HospitalComment on above:Performed By: #### CBC #### [address] [address]QYH (Bld) [#/Vol]10.0 x10*3/mcLNormal4.5-11.0St[facility]'S HospitalComment on above:Performed By: #### CBC #### [address] [address]COOoj 09-36-5941Eyrsdkk [Mass/Vol]4.3 g/dLNormal3.2-4.9 [facility] HospitalComment on above:Result Comment: [facility] Laboratory updated the methodology used for albumin testing on 02/06/18. Albumin measurement was performed using a bromcresol purple dye-binding assay.Performed By: #### COMP #### [address] [address]Nnbcgef/Globulin [Mass ratio]1.3 {ratio}Normal1.1-2.2BWestern Reserve HospitalComment on above:Performed By: #### COMP #### [address] [address]Ory Qyjd988 IU/RVrmq83-44XueuuxkunSt. Rita'S HospitalComment on above:Performed By: #### COMP #### [address] [address]HCB [Catalytic activity/Vol]74 U/OIxse97-60YazbemrefSt. Rita'S HospitalComment on above:Performed By: #### COMP #### [address] [address]Ymeeo gap [Moles/Vol]15 mmol/LNormal7-17St. [facility]'S HospitalComment on above:Performed By: #### COMP #### [address] [address]NMB [Catalytic activity/Vol]47 U/QMpvz78-77GjziyyusuSt. Rita'S HospitalComment on above:Performed By: #### COMP #### [address], [place] [address]Qixc Total0.4 mg/dLNormal0.3-1.2BWestern Reserve Hospital Comment on above:Performed By: #### COMP #### [address], [place] [address]Guhzfqn [Mass/Vol]9.2 mg/dLNormal8.5-10.3BWestern Reserve HospitalComment on above:Performed By: #### COMP #### [address], [place] [address]Wgjqotkr [Moles/Vol]99 mmol/OFionsh30-204OjqhqjsdySt. Rita'S HospitalComment on above:Performed By: #### COMP #### [address] [address]HD2 [Moles/Vol]25 mmol/CNsgzar38-98ThambbmukSt. Rita'S HospitalComment on above:Performed By: #### COMP #### [address], [place] [address]Fvlqxsfnsa [Mass/Vol]0.83 mg/dLNormal0.44-1.03St. [facility]'S HospitalComment on above:Performed By: #### COMP #### [address] [address]Fxjociq [Mass/Vol]90 mg/kNXnmcic22-57HrssrxrakSt. Rita'S HospitalComment on above:Performed By: #### COMP #### [address] [place] [address]Deuoawcnx [Moles/Vol]3.4 mmol/LNormal3.4-4.8BWestern Reserve HospitalComment on above:Performed By: #### COMP #### [address] [place] [address]Vutseee [Mass/Vol]7.7 g/dLNormal6.5-8.1BWestern Reserve HospitalComment on above:Performed By: #### COMP #### [address] [address]Wdjeil [Moles/Vol]136 mmol/IFhcbwu628-704LqltixgshSt. Rita'S HospitalComment on above:Performed By: #### COMP #### [address] [address]Rcyn nitrogen [Mass/Vol]15 mg/dLNormal8-26St. [facility]'S HospitalComment on above:Performed By: #### COMP #### [address] [address]Ectj nitrogen/Creatinine [Mass ratio]18.1 mg/soGnyihb86.0-20.0 [facility]S HospitalComment on above:Performed By: #### COMP #### [address] [address]Jakr Autoon 01-81-9481Lcyo Absolute0.0 x10*3/mcLNormal0.0-0.2 [facility]S HospitalComment on above:Performed By: #### .Automated Diff #### [address] [address]Omuakvcie/100 WBC (Bld)0.4 %Normal0.0-1.5BWestern Reserve HospitalComment on above:Performed By: #### .Automated Diff #### [address] [address]Bnv Absolute0.4 x10*3/mcLNormal0.0-0.4BWestern Reserve HospitalComment on above:Performed By: #### .Automated Diff #### [address] [address]Lroojmthzma/100 WBC (Bld)3.7 %Normal0.0-5.4BWestern Reserve HospitalComment on above:Performed By: #### .Automated Diff #### [address] [address]Vbtmfmwrmsk (Bld) [#/Vol]3.2 x10*3/mcLNormal1.0-4.8BWestern Reserve HospitalComment on above:Performed By: #### .Automated Diff #### [address] [address]Dwnicubadpo/100 WBC (Bld)31.5 %Thmwip75.2-40.8BWestern Reserve HospitalComment on above:Performed By: #### .Automated Diff #### [address] [address]Jdrw Absolute0.4 x10*3/mcLNormal0.1-1.1BWestern Reserve HospitalComment on above:Performed By: #### .Automated Diff #### [address] [address]Pcbvueqss/100 WBC (Bld)4.2 %Normal3.7-11.9BWestern Reserve HospitalComment on above:Performed By: #### .Automated Diff #### [address] [address]Djndwj Absolute6.0 x10*3/mcLNormal1.8-7.7BParkview Health Bryan Hospital SystemComment on above:Performed By: #### .Automated Diff #### [address] [address]Dtccua Auto60.2 %Ilbsfb50.2-70.8BWestern Reserve Hospital Comment on above:Performed By: #### .Automated Diff #### [address] [address]SO Clinical Summaryon [id number] Clinical Summary [address] [address] ED Clinical Summary Person Information Name: Farideh Hsu [place] Age: 34 Years : 1985 Sex: Female PCP: Marital Status: Single Phone: Race: White Ethnicity: Not or Language: Liberian Visit Reason: Drug withdrawal; Drug withdrawal Acuity: 3 Enc Type: Observation Med Service: X Medication Withdrawal Management Arrival: 12/02/2019 03:53:05 Discharge: LOS: 000 04:16 Checkin: 12/02/2019 03:53:05 Checkout: 12/02/2019 08:09:13 Dispo Type: Place in Observation Address: [address] [place] [address] Provider Notes: Diagnosis: 1:Heroin addiction Problems No [...] range between ( 27.2 and 40.8 ) Iron Auto: 4.2 % -- Normal range between [...] range between ( 36.0 and 46.0 ) Iron Absolute: 0.4 x10 MCH: 28.6 pg -- [...] EDT, Medical/Surgical 5th floor Patient Education Information: [facility] Poison Help line: . [facility] Hotline: [place] Tobacco Quit Line: [place], [place]) [address]: [phone] [place], [place]) [address]: [phone] [facility] [address] [place], [place]: [phone] HospitalED Note-Physicianon 43-53-2362ET Note-Physician seen by neonatal social worker, admitted to [facility] program Electronically signed by Benita Mace MD 12/02/19 08:16 EDPark[facility] Bryan HospitalED Note-PhysicianChief Complaint Patient reports she would like help with Heroine withdrawal History of Present Illness Patient presented to the emergency department requesting detox from heroin and other drugs. Patientsaid that she has had substance use disorder for a long time but it got bad since age 23. She has been sober on and off during this. But she has never done any rehab but She has usually been able to sober on her own. The last time she used heroin was yesterday. Patient states that she used to do Per cocets and Xanax and others but since she was about age 25 she was sober for several years and thenshe relapsed again. 2 years ago she was also able to sober up but she relapsed again. Currently sheis only doing heroin and she smokes marijuana [...] delusions. She is not suicidal homicidal. Her cog nition and her memory is good. Her neurological [...] round, extraocular movements intact without nystagmus, clear conjunctiva,non-icteric sclera] HENT: [normocephalic, atraumatic, moist mucus membranes, [...] mentation and speech. Moves all extremities x 4without motor or sensory deficit . PSYCHIATRIC: [normal [...] 04:43 60.2 Lymph Auto 12/02/19 04:43 31.5 Iron Auto 12/02/19 04:43 4.2 Eos Auto 12/02/19 04:43 3.7 Basophil Auto 12/02/19 04:43 0.4 Neutro Absolute 12/02/19 04:43 6.0 Lymph Absolute 12/02/19 04:43 3.2 Iron Absolute 12/02/19 04:43 0.4 Eos Absolute 12/02/19 [...] (MRI) Electronically signed by Mike YEAGER, Nestor Crossugi 12/02/19 19:07 EDTNormalSt. Rita'S Hospital Ethanolon 43-50-6042Tgwnshd [Mass/Vol]mg/dLNormal<=9BWestern Reserve HospitalComment on above:Result Comment: To convert mg/dL to g/dL, divide result by 1,000. Legal limit of intoxication is 80mg/dL (0.08 g/dL).Performed By: #### ALC #### [address] [address]Cvghgdou Scn without Confirm, Uron 01-77-5268Cp Fentanyl Scrn Presumptive PosAbnormalNEG <1.0St. Rita'S HospitalComment on above: Result Comment: Urine sample is presumptive positive for fentanyl. The [employer] SEFRIA Fentanyl Urine Enzyme Immunoassay provides only [...] Screen result will indicate the presence of methamphetaminePerformed By: #### .Automated Diff #### [address] [address]Tw Fentanyl Scrn Qnt3.03 ng/mLHigh<=0.99St. [facility]'S HospitalComment on above:Performed By: #### .Automated Diff #### [address] [address]RVF3/2 Ab,Ag Scnon 84-80-2043JFT-1/2 Ab,Ag0.21NoMemorial Health System Selby General HospitalComment on above:Performed By: #### .Automated Diff #### [address] [address]PUC-2/2 Ab,Ag InterpNormalNegOur Lady of Mercy Hospital - Anderson SystemComment on above:Result Comment: Negative NegativePerformed By: #### .Automated Diff #### [address] [address]Rzg Scrn Chron 02-35-9422GFY Signal to Cutoff Ratio36.20[facility] Geauga Medical CenterComment on above:Performed By: #### .Automated Diff #### [address] [address]Vhz B Surface Antibody InterpNegativeBrown Memorial HospitalComment on above:Result Comment: Patient is considered to be not immune to infection.Performed By: #### .Automated Diff #### [address] [address]Wov Bs Ab<5.0Brown Memorial HospitalComment on above:Performed By: #### .Automated Diff #### [address] [address]Moi Bs Ag InterpNormalKettering Memorial Hospital Comment on above:Result Comment: Negative NegativePerformed By: #### .Automated Diff #### [address] [address]Jnm C IgG InterpAbnMedina Hospital Comment on above:Result Comment: Reactive This specimen is reactive by the Ortho ECiQ Hepatitis C Antibody Screen. Anti- HCV IgG detected. Patient is presumed to be infected with HCV, state or associated disease not determined. Confirmation of this screening result is required. Per CBC guidelines, reactive antibody screens reflex to Hepatitis C Virus (HCV) RNA Detection and Quantification by RT-PCR. ReactivePerformed By: #### .Automated Diff #### [facility] [address] [place], [place] [address]Nizzqis and Physicalon 67-78-3766Eljyuyt and PhysicalChief Complaint Patient reports she would like help [...] pack-a-day smoker. Patient is requesting Nicotrol Inhaler fornicotine withdrawal. Other past medical history includes migraine [...] meds only. Patient does not feel she isable to do this at home and is [...] Care Directive: unknown Health Care Power of Outside Contractor Sales or next of kin: unknown Family Updated: [...] Oral, QID, PRN cloNIDine, 0.1 mg, Oral, t3gz-Lffdsnov Times cloNIDine, 0.2 mg, Oral, l7pw-Bcqpsdds Times cloNIDine, 0.1 mg, Oral, q4hr, PRN [...] Electronically signed by Nhi Posada 12/02/19 11:58 EDTNormalSt. Rita'S HospitalRPR Screenon 40-30-9590LFD NbKok-OlbnlwxvJtzzyrRyu-Byvueash St. Rita'S HospitalComment on above:Performed By: #### .Automated Diff #### [address] [address]WLLtd 90-77-5441WVC Qn3.77 mcIU/mLNormal0.45-5.33St. Rita'S HospitalComment on above:Result Comment: Reference Ranges for individuals from to 18 years of age were obtained from The Kathryn Cortes Handbook (20 ed) published by [facility]. Reference Ranges for Females: Females, 1st Trimester 0.05 ? 3.7 uIU/mL Females, 2nd Trimester 0.31 ? 4.35 uIU/mL Females, 3rd Trimester 0.41 ? 5.18 uIU/mLPerformed By: #### TSH #### [address] [address]XIZ Compon 82-66-0153MP pH5.7Ckjuej8.5 - 7.8BWestern Reserve HospitalComment on above:Performed By: #### CD:[id number] #### [address] [address]XT Spec Grav1.406Cbwqdn0.003-1.035[facility] SystemComment on above:Performed By: #### CD:[id number] #### [address] [address]Wkxhmrlyxy [Mass/Vol]351.3 mg/dLNormalSt. Rita'S HospitalComment on above:Performed By: #### CD:[id number] #### [address] [address]Ml Amph ScrnNegativeNormalNEG = <1000[facility] SystemComment on above:Performed By: #### CD:[id number] #### [address], [place] [address]Yv Reyna ScrnNegativeNormalNEG = <200St. [facility]'S HospitalComment on above:Performed By: #### CD:[id number] #### [address], [place] [address]Ij Benzodia ScrnNegativeNormalNEG = <200[facility] SystemComment on above:Performed By: #### CD:[id number] #### [address], [place] [address]Yl Cannab ScrnNegativeNormalNEG = <50[facility] SystemComment on above:Performed By: #### CD:[id number] #### [address] [place] [address]Mb Cocaine ScrnNegativeNormalNEG = <300[facility] SystemComment on above:Performed By: #### CD:[id number] #### [address] [address]Ha Methadone ScnNegativeNormalNEG = <300St. [facility]'S HospitalComment on above:Performed By: #### CD:[id number] #### [address] [address]Hn Opiate ScrnPositiveAbnormalNEG = <300St. [facility]'S HospitalComment on above:Result Comment: This unconfirmed positive screening result is to be used for medical treatment purposes only. Unconfirmed screening results must not be used for non-medical purposes. (e.g. employment testing, legal testing).Performed By: #### CD:[id number] #### [address] [address]Na Oxy ScreenNegativeNormalNEG = <100St. [facility]'S HospitalComment on above:Performed By: #### CD:[id number] #### [address] [address]Df Oxy Scrn Qnt24 ng/mLNormal<=99[facility] Comment on above:Performed By: #### CD:[id number] #### [address] [address]If PCP ScrnNegativeNormalNEG = <25St. [facility]'S HospitalComment on above:Performed By: #### CD:[id number] #### [address] [address]ERO Comp/Con 05-16-2646Soxxakeeba [Mass/Vol]45.1 mg/dLNormal St. Rita'S HospitalComment on above:Performed By: #### .Automated Diff #### [address] [address]Wi Amph Scrn w/ConfNegativeNormalNEG = <1000St. [facility]'S HospitalComment on above:Performed By: #### .Automated Diff #### [address] [address]If Reyna Scrn w/ConfNegativeNormalNEG = <200[facility] SystemComment on above:Performed By: #### .Automated Diff #### [address], [place] [address]Cn Benzodia Scrn w/ConfNegativeNormalNEG = <200[facility] SystemComment on above:Performed By: #### .Automated Diff #### [address] [address]Wc Cannab Scrn w/ConfNegativeNormalNEG = <50[facility] SystemComment on above:Performed By: #### .Automated Diff #### [address] [address]Kw Cocaine Scrn w/ConfNegativeNormalNEG = <300St. [facility]'S HospitalComment on above:Performed By: #### .Automated Diff #### [address] [address]Wc Methadone Scrn w/ConfNegativeNormalNEG = <300St. [facility]'S HospitalComment on above:Performed By: #### .Automated Diff #### [address] [address]Ey Opiate Scrn w/ConfPositiveAbnormalNEG = <300St. [facility]'S HospitalComment on above:Result Comment: This unconfirmed positive screening result is to be used for medical treatment purposes only. Confirmation testing will be performed using an alternate method.Performed By: #### .Automated Diff #### [address] [address]Uo Oxy Screen w/ConfNegativeNormalNEG = <100St[facility]'S HospitalComment on above:Performed By: #### .Automated Diff #### [address] [address]Uz Oxy Scrn Qnt w/Confirm2 ng/mLNormal<=99St[facility]'S HospitalComment on above:Performed By: #### .Automated Diff #### [address] [address]Dq PCP Scrn w/ConfNegativeNormalNEG = <25[facility] SystemComment on above:Performed By: #### .Automated Diff #### [address] [address]KG pH6.9Ppdusy0.5 - 7.8BWestern Reserve HospitalComment on above:Performed By: #### .Automated Diff #### [address] [address]CB Spec Grav1.482Ahgger4.003-1.035St. [facility]'S HospitalComment on above:Performed By: #### .Automated Diff #### [address] [address] Vital Signs Date TimeVital SignValuePerforming HjoyxehlfVefmoqyb10-90-2883 10:45-0400Body mtyyzp817.9 Ivonne MARTINEZ Work Phone: [phone] [place], [place] [address]Gllcmnlphw91-31-8770 10:45-0400Body mass index (BMI) [Ratio]43.27 kg/m2Celeste Camacho PA Work Phone: [phone] [place], [place] [address]Hrkijcdndx31-33-4741 10:45-0400Body wjyvqr740.87 kgCeleste MARTINEZ Work Phone: [phone] [place], [place] [address]Pyrocykyhk19-69-4008 10:45-0400Diastolic blood tzaafhkb16 mm[Hg]Celeste Camacho PA Work Phone: [phone] [place], [place] [address]Fwztenoojw26-75-5928 10:45-0400Systolic blood mm[Hg]Celeste MARTINEZ Work Phone: [phone] [place], [place] [address]Ougersmizw66-75-1995 09:20-0400Body mass index (BMI) [Ratio]42.99 kg/e8Cetdv Jaden DO Work Phone: [phone] [place], [place] [address]Bdfnkmhthq77-33-9059 09:20-0400Body .19 kgCorey Jaden DO Work Phone: [phone] [place], [place] [address]Nvzwbrhfbk33-70-6600 09:20-0400Diastolic blood nxgqzose46 mm[Hg]Aurelio Jaden DO Work Phone: [phone]-[facility]–SmithvilleTneurcqkim18-12-3044 09:20-0400Systolic blood otqpzjzt104 mm[Hg]Aurelioiram Stephensono DO Work Phone: [facility]–SmithvilleEvziacqbuj83-41-7356 13:45-0400Body mass index (BMI) [Ratio]43.42 kg/w0Bthwr Jaden DO Work Phone: [facility]–SmithvilleDkbmbftoqc95-58-5777 13:45-0400Body eosnyq680.24 kgCorey Jaden DO Work Phone: [facility]–SmithvilleUtwklpokkj75-39-1783 13:45-0400Diastolic blood mm[Hg]Aurelioiram Stephensono DO Work Phone: [facility]–SmithvilleGpijkkyokq06-37-3552 13:45-0400Systolic blood gpkdnfob994 mm[Hg]Aurelioiram Stephensono DO Work Phone: [facility]–SmithvilleGqwwdszgqs35-11-9576 15:16-0400Body elessq970.9 cmValeserenity 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 Work Phone: [facility]04-14-2025 15:16-0400Body mass index (BMI) [Ratio]42.8 kg/l9OhamgnsRony 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 Work Phone: [facility]04-14-2025 15:16-0400Body qvreqvkagvr48.3 [degF]Rony 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 Work Phone: [facility]04-14-2025 15:16-0400Body hxsvla428.69 kgRony 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 Work Phone: [facility]04-14-2025 15:16-0400Diastolic blood ihnqosox31 mm[Hg]Rony 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 Work Phone: [facility]04-14-2025 15:16-0400Heart rate 100 /minBonnierilamonte Gray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 Work Phone: [facility]04-14-2025 15:16-0400 Respiratory rate16 /minBonnierie 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 Work Phone: [facility]04-14-2025 15:16-8949CkR2% (BldA) [Mass fraction]98 %Rony 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 Work Phone: [facility]04-14-2025 15:16-0400Systolic blood fdekgmls387 mm[Hg]Rony 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 Work Phone: [facility]03-24-2025 14:16-0400Body mass index (BMI) [Ratio]41.46 kg/l0Dyuhd Jaden Work Phone: [facility]SmithvilleZdyhagvail32-81-8422 14:16-0400Body cerhow72.52 kgCorey Jaden Work Phone: [facility]SmithvilleVfsyhjgwez61-12-6115 14:16-0400Diastolic blood mm[Hg]Aurelioiram Stanley [employer] Work Phone: [facility]–SmithvilleXijygrzrfq30-35-3522 14:16-0400Systolic blood qzmuxvwd146 mm[Hg]Aurelioiram Stanley [employer] Work Phone: [facility]SmithvilleJwqojwlcfa17-78-9772 10:49-0400Body temperature 97.39 [degF]Kalin Betancurjessica [employer]IGERATOR [employer] Work Phone: [facility]03-13-2025 10:49-0400Diastolic blood srcihzkk12 mm[Hg]Kalin Ruyvero [employer]RE[employer] Work Phone: [facility]03-13-2025 10:49-0400Heart rate 122 /minKalin Aguirre [employer]REFRIGERATOR [employer] Work Phone: [facility]03-13-2025 10:49-8154ZpO5% (BldA) [Mass fraction]97 %Kalin Ruymicaelazer [employer]REFRIGERATOR [employer] Work Phone: [facility]03-13-2025 10:49-0400Systolic blood qlxsmfje944 mm[Hg]Kalin Aguirre [employer]ER[employer] Work Phone: [facility] [employer] Govkst34-78-4809 14:24-0400Body plqujm101.9 Naveed 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 Work Phone: [facility]03-10-2025 14:24-0400Body mass index (BMI) [Ratio]41.46 kg/h5GjhnafxRony Cox APRN-REFRIGERATOR MOVER Work Phone: [facility]03-10-2025 14:24-0400Body rxxxponkykk32.6 [degF]Rony Cox APRN-REFRIGERATOR [employer]OVER Work Phone: [facility]03-10-2025 14:24-0400Body qedjbv37.52 kgRony Cox APRN-REFRIGERATOR MOVER Work Phone: [facility]03-10-2025 14:24-0400Diastolic blood mm[Hg]Rony Cox APRN-REFRIGERATOR MOVER Work Phone: [facility] [employer] Uusqyz07-28-0608 14:24-0400Heart rate 106 /minRony Cox APRN-REFRIGERATOR MOVER Work Phone: [facility]03-10-2025 14:24-0400 Respiratory rate18 /minRony Cox APRN-REFRIGERATOR MOVER Work Phone: [facility] [employer] Lerwzr73-78-8438 14:24-2966LnS1% (BldA) [Mass fraction]99 %Rony Cox APRN-REFRIGERATOR MOVER Work Phone: [facility]03-10-2025 14:24-0400Systolic blood yelwkwbg035 mm[Hg]Rony Cox APRN-REFRIGERATOR MOVER Work Phone: [facility]02-18-2025 09:49-0500Body mass index (BMI) [Ratio]41.19 kg/i3FlpcqAurelio Stanley DO Work Phone: [facility]SmithvilleYufsbowppc48-63-9801 09:49-0500Body kuyrpl39.88 kgCorey Jaden DO Work Phone: [facility]–SmithvilleOouxijevfv33-55-0544 09:49-0500Diastolic blood kqhvvwet698 mm[Hg]Aurelio Jaden DO Work Phone: [facility]–SmithvilleHnjxmqabbo36-43-0372 09:49-0500Systolic blood hxqiejfa618 mm[Hg]Aurelioiram Stanley DO Work Phone: [facility]SmithvilleBapdwztrpp15-40-2030 13:03-0500Body fixvgp897.9 cmVjarrell 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 Work Phone: [facility]01-13-2025 13:03-0500Body mass index (BMI) [Ratio]39.53 kg/k6MrhjxwkRony 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 Work Phone: [facility]01-13-2025 13:03-0500Body izedilhkmlm44 [degF]Rony 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 Work Phone: [facility]01-13-2025 13:03-0500Body .89 kgRony 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 Work Phone: [facility]01-13-2025 13:03-0500Diastolic blood wlikunco10 mm[Hg]Rony 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 Work Phone: [facility]01-13-2025 13:03-0500Heart rate 100 /minRony 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 Work Phone: [facility]01-13-2025 13:03-0500 Respiratory rate18 /minRony 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 Work Phone: [facility]01-13-2025 13:03-9446ZqK0% (BldA) [Mass fraction]99 %Rony 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 Work Phone: [facility]01-13-2025 13:03-0500Systolic blood ftstgvoe119 mm[Hg]Rony 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 Work Phone: [facility] Encounters Encounter DateEncounter TypeCare ProviderFacilityStart: 04-22-2025 End: 27-86-0684Gfsjap dmitriCeleste MARTINEZ Work Phone: noMS [place] OBGYNStart: 04-22-2025 End: 60-85-4913Vrwaru dmitriCeleste Doug PA Work Phone: [facility] [place] OBGYNStart: 04-22-2025 End: 15-82-8241Pssdkc follow up visit related to original murielCeleste MARTINEZ Work Phone: noMS [place] OBGYNComment on above:H/O: hysterectomy Start: 04-22-2025 End: 41-07-4145jshegsnfuaGHE DOUGNot AvailableStart: 04-15-2025 End: 72-73-4941duabxxeaofPppta [facility] Work Phone: Start: 04-15-2025 End: 48-43-7805Mkqecfqu ReferredCorey Jaden-LAB Path Spec [facility] HospStart: 04-06-2025 End: 54-24-3599Flvmmbiiu Result EncounterCorey Jaden DO Work Phone: noms External Department UnsolicitedStart: 04-06-2025 End: 96-55-0166Kdzchkfcv Result EncounterCorey Jaden DO Work Phone: noms External Department UnsolicitedStart: 03-19-2025 End: 79-90-0175Qmjtwb outpatient visit 15 minutesCorey Jaden DO Work Phone: noMS [facility]cy OBGYNComment on above:Pre-op examination; Pelvic pain; Dyspareunia in female; Dysmenorrhea; Menorrhagia with regular cycleStart: 03-19-2025 End: 16-55-7050Qsscxdwveqwqw examination doneCorey Jaden DO Work Phone: noms HealthcareStart: 03-19-2025 End: 24-97-6299pptskodmxeYIIDY FAZIONot AvailableStart: 01-29-2025 End: 98-87-8865HaocwkLkatdxjTonia Cox APRNNewsPinREFRIGERATOR MOVER Work Phone: [facility] Family MedicineComment on above:Insomnia, unspecified typeStart: 01-20-2025 End: 86-82-7889DwfsooHebggvjTonia Cox APRNNewsPinHOUSE OF THE [facility] Work Phone: [facility] - Family MedicineComment on above:Nephrolithiasis; Bipolar affective disorder, currently depressed, mild ([facility]); Lumbar back pain with radiculopathy affecting left lower extremityStart: 12-08-2024 End: 71-41-0959Ngohmh flowsheetCorey Jaden DO Work Phone: noms BCP OBStart: 12-08-2024 End: 76-81-6964Spdeza flowsheetCorey Jaden DO Work Phone: noms BCP OBStart: 12-08-2024 End: 03-48-9484Yxtagrppr Result EncounterCorey Jaden DO Work Phone: noms External Department UnsolicitedStart: 12-08-2024 End: 13-25-2259Gkzutbd encounter procedureCorey Jaden DO Work Phone: [facility] Work Phone: Start: 12-08-2024 End: 48-35-6537Lyupulkc preventive med est patient 18-39 yrsCorey Jaden DO Work Phone: noms BCP OBComment on above:Well woman exam with routine gynecological exam; Pelvic pain in female; Menorrhagia with regular cycleStart: 12-08-2024 End: 74-31-8518ywrqxewgelDZNXU FAZIONot AvailableStart: 11-28-2024 End: 42-26-4207BavkkgLrqloslTonia Cox APRNNewsPinHOUSE OF THE [facility] Work Phone: [facility] - Family MedicineComment on above:Bipolar affective disorder, currently depressed, mild ([facility]-HCC)Start: 32-59-2874dwcffdiiulXNQAMWC J CASTILLOKettering Health Behavioral Medical Center Start: 11-19-2024 End: 05-30-2167Txnftu Olivia 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 Work Phone: [facility] - Family MedicineComment on above:Leukocytosis, unspecified type (Primary Dx)Start: 11-18-2024 End: 15-10-1464Nlxhvq Olivia 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 Work Phone: [facility] - Screventart: 11-05-2024 End: 60-85-4432RodnnlGycrnpe J Castillo STUNT MAN-REFRIGERATOR MOVER Work Phone: [facility] - Family MedicineComment on above:Migraine without aura and without status migrainosus, not intractableStart: 10-13-2024 End: 58-81-9591mqiioebotrBCUHOIU J CASTILLOCommunity Regional Medical Center HospitalStart: 10-41-1159Ljrzecyyk for general adult medical examination without abnormal findingsLYONSSERENITY St. Charles Hospitaltart: 10-13-2024 End: 77-87-2758Navwpcq encounter procedureValeserenity 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 Work Phone: [facility] SystemStart: 10-13-2024 End: 48-97-8457Nbazxpbn preventive med est patient 18-39 yrsRony 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 Work Phone: [facility] - Family MedicineComment on above:Annual physical exam (Primary Dx); Insomnia, unspecified type; Blood tests for routine general physical examinationStart: 10-13-2024 End: 96-10-3870Qjelwyyr examinationRony 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 Work Phone: [facility] SystemStart: 10-13-2024 End: 45-35-1551tpbrdycgpqXGICGQECarrollton Regional Medical Center [facility] Start: 21-94-0881Toymivitn for general adult medical examination without abnormal findingsUnited [facility] Medical Center Ambulatory PPGStart: 10-11-2024 End: 00-22-4062AshtktDxihpkoTonia Cox APRN-REFRIGERATOR MOVER Work Phone: [facility] - Family MedicineComment on above:Lumbar back pain with radiculopathy affecting left lower extremityStart: 09-22-2024 End: 36-34-2725Zuufqi follow up visit related to original pxCorey Jaden DO Work Phone: NOMI BCP OBComment on above:Postoperative follow-up; EndometriosisStart: 09-22-2024 End: 83-99-5512uictqvzouuUGSBA FAZIONot AvailableStart: 09-22-2024 End: 04-11-0357Dzmdce flowsheetCorey Ajden DO Work Phone: [facility] BCP OBStart: 09-22-2024 End: 84-16-8057Exwglo flowsheetCorey Jaden DO Work Phone: NOFF BCP OBStart: 09-11-2024 End: 77-33-7241Qerwfg OnlyRony Cox APRN-REFRIGERATOR MOVER Work Phone: [facility] - Family MedicineStart: 09-09-2024 End: 34-11-5721Knhenzqsk encounterMisty Natasha CMAProMedica Physicians Internal Medicine - Family MedicineStart: 09-08-2024 End: 08-21-1208Jkcjbc outpatient visit 15 minutesRony 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 Work Phone: [facility] - Family MedicineComment on above:Benign essential HTN (Primary Dx)Start: 09-08-2024 End: 30-37-4175bsbacvevjrZAGCTEBTexas [facility] Start: 09-07-2024 End: 44-83-9875SsstdlFdjtqtkTonia Cox APRN-REFRIGERATOR MOVER Work Phone: [facility] - Family MedicineComment on above:Migraine without aura and without status migrainosus, not intractableStart: 09-01-2024 End: 42-20-3012Kakpxamyp Result EncounterCorey Jaden DO Work Phone: noms External Department UnsolicitedStart: 09-01-2024 End: 45-70-8726Mtpgmtaac Result EncounterCorey Jaden DO Work Phone: noms External Department UnsolicitedStart: 08-19-2024 End: 21-23-4162Natjtn flowsheetCorey Jaden DO Work Phone: noms BCP OBStart: 08-19-2024 End: 13-34-5460Torxem flowsheetCorey Jaden DO Work Phone: noms BCP OBStart: 08-19-2024 End: 68-77-9432lhmhkawfheKFWKC FAZIONot AvailableStart: 08-19-2024 End: 28-73-3771Hawwxv outpatient visit 15 minutesCorey Jaden DO Work Phone: noms BCP OBComment on above:Pre-op examination; Pelvic pain in femaleStart: 08-19-2024 End: 04-84-8488Bdmpjxkkgsaul examination doneCorey Jaden DO Work Phone: noms HealthcareStart: 08-11-2024 End: 25-23-2695RdmznvHttynyqTonia Cox APRN-DAISY Work Phone: [facility] - Family MedicineComment on above:Lumbar back pain with radiculopathy affecting left lower extremityStart: 07-15-2024 End: 66-02-2286Feimsv OnlyRony Cox APRN-REFRIGERATOR MOVER Work Phone: [facility] - Family MedicineComment on above:Vitamin D deficiency (Primary Dx)Start: 07-14-2024 End: 85-04-8649vuxgyvwvemRZDLQAUTanja Harrell [facility] HospitalStart: 07-14-2024 End: 84-34-2722Pngkzw outpatient visit 25 minutesRony Cox APRN-REFRIGERATOR MOVER Work Phone: [facility] Internal Medicine - Family MedicineComment on above:Vitamin D deficiency (Primary Dx); Bipolar affective disorder, currently depressed, mild (CMS-HCC); Chronic seasonal allergic rhinitis; Nephrolithiasis; Lumbar back pain with radiculopathy affecting left lower extremity; Migraine without aura and without status migrainosus, not intractableStart: 07-14-2024 End: 68-08-3905ezufykwbwmWOPNOVMOU [facility] Center [facility] [place] Start: 07-12-2024 End: 28-33-0414EskspuAzgbuv G Furlong DO Work Phone: [facility] Internal Medicine - Family MedicineComment on above:Lumbar back pain with radiculopathy affecting left lower extremityStart: 06-09-2024 End: 79-06-7623EuusqtWgqyjb [facility] Internal Medicine - Family MedicineComment on above:Bipolar affective disorder, currently depressed, mild ([facility]); Canker sores oral; Vitamin D deficiency; Chronic seasonal allergic rhinitis; Mineral metabolism disorder; Nephrolithiasis; Lumbar back pain with radiculopathy affecting left lower extremity; Migraine without aura and without status migrainosus, not intractableStart: 02-12-2024 End: 08-12-9311ZxbhpqWtfm [facility] Internal Medicine - Family MedicineComment on above:Lumbar back pain with radiculopathy affecting left lower extremityStart: 12-15-2023 End: 16-55-9753CrwvpvLskliakKatie oCx APRN-REFRIGERATOR MOVER Work Phone: [facility] Internal Medicine - Family MedicineComment on above:Lumbar back pain with radiculopathy affecting left lower extremityStart: 11-08-2023 End: 21-77-1766DhnqnbCtdnuppKatie Cox APRN-REFRIGERATOR MOVER Work Phone: [facility] Internal Medicine - Family MedicineComment on above:Bipolar affective disorder, currently depressed, mild (CMS-HCC)Start: 10-14-2023 End: 29-51-2883NfxofiLrrrvvm Carla 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 Work Phone: [facility] - Family MedicineComment on above:Lumbar back pain with radiculopathy affecting left lower extremity; Bipolar affective disorder, currently depressed, mild ([facility])Start: 09-12-2023 RefUriahlamonte 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 Work Phone: [facility] - Family MedicineComment on above:Lumbar back pain with radiculopathy affecting left lower extremity; Vitamin D deficiencyStart: 93-90-1226ZqcshtLvzdmpe Carla 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 Work Phone: [facility] - Family MedicineComment on above:Lumbar back pain with radiculopathy affecting left lower extremityStart: 04-79-1369ZxhroxRqiyesr Carla Gray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 Work Phone: [facility] - Family MedicineStart: 02-21-2023 End: 89-54-5924wlzpqwxvuyZIQLLZT EDITHFacility:Nico DHStart: 02-21-2023 End: 72-34-4255Utjmdlk encounter Brook Deutsch [phone]-DdllwMer[facility] Start: 49-64-7766yfgfjyzloeHFCTZGQ CASTILLO Facility:Nico DHStart: 09-19-2022 End: 45-44-4258exbybsuazkFO JOSE AGUILAR .Facility:X6Tfmmr: 07-12-2022 End: 28-06-1874szyzrqifnmJB NONE LISTED REQUESTFacility:S3Iicer: 07-10-2022 End: 91-35-5570zdaofnwbcnMP NONE LISTED REQUESTFacility:Q3Dzfdj: 06-08-2022 End: 87-61-5965xpnunhjmzuIA NONE LISTED REQUESTFacility:X3Stzxt: 11-23-2021 End: 56-44-5401obyjznkoggVC NONE LISTED REQUESTFacility:W3Riiyz: 10-27-2020 End: 95-38-5425ozfpuyzdmwZTJFGI [facility]uridia [facility] HospitalStart: 10-27-2020 End: 88-93-4439Gwctlzsepp hospital visit by physicianNEW[facility] LaboratoryStart: 10-27-2020 End: 01-27-9966rdonmwuxubQBPQFX Yuridia [facility]ulloughfin HospitalStart: 10-27-2020 End: 45-06-9129Ugilktvttj hospital visit by physicianNEWY[facility] LaboratoryStart: 06-03-2020 End: 62-71-3739urcrmyledjQIQJTK SYEDAcleveland clinic medina hospitaliram McculloughWarm Springs HospitalStart: 06-03-2020 End: 29-32-8135Yhijhybgfp hospital visit by physicianNEWY[facility] LaboratoryStart: 05-12-2020 End: 06-57-6191jedrwfusskEVNBMF RICKNAINARiverview Health Institute HospitalStart: 05-12-2020 End: 98-52-9806Omkybbshmk hospital visit by physicianNEWY[facility] LaboratoryStart: 05-11-2020 End: 06-60-0520jyzskizqysLCYPSV SYEDAcleveland clinic medina hospitaliram McculloughWarm Springs HospitalStart: 05-11-2020 End: 42-78-7810Cxemuuegbg hospital visit by physicianNEWY[facility] LaboratoryStart: 12-02-2019 End: 04-79-1385Niktaed encounter procedureBrad Fidel SheppardFacility:[facility] Procedures DateProcedureProcedure DetailPerforming ClinicianStart: 36-26-7845XWD CBC WITH AUTO DIFFCorey Jaden DO Work Phone: Start: 53-24-1346NCG 12-LEADCorey Jaden DO Work Phone: Start: 09-58-8246HYU,APTIMA HPV,AGE GDLNCorey Jaden DO Work Phone: Start: 43-39-6892EZO 12-LEADCorey Jaden DO Work Phone: Start: 44-44-1134HBK BASIC METABOLIC PANELCorey Jaden DO Work Phone: Start: 25-62-6194Iwilh depression screening assessment Rony Cox APRN-REFRIGERATOR MOVER Work Phone: Start: 23-04-1700Zwjigkmsywi observation [Identifier] in Cervix by Cyto stainRony Cox STUNT MAN-[facility] Work Phone: Start: 39-07-1001Srgeugwd hiv-1&hiv-2 single result Diego Hernandez STUNT MAN - REFRIGERATOR MOVER Work Phone: Start: 23-44-9429Rdlhxzyioxmot metabolic panelErnest David STUNT MAN - [facility] Work Phone: Start: 67-02-7758EPFRDGCX PLATELET FRACTIONErnest David STUNT MAN - [facility] Work Phone: Start: 14-22-1980Mzbmyuav hiv-1&hiv-2 single result DIEGO SULLIVANtart: 41-76-3133Dvgqg count complete automatedERNEST RICKSAMUELtart: 55-07-7537Wbibv hepatitis c quant & reverse transcriptionERNEST RICKERStart: 97-12-1047Tivzc hepatitis panelErtahirzachariah David Work Phone: Start: 92-19-8615Gwzuykdx hiv-1&hiv-2 single result Diego Hernandez Work Phone: Start: 37-21-0393Pvwbq count complete automatedErelijah Hernandez Work Phone: Start: 02-93-8172Fahbydvmknyik metabolic panelErelijah Hernandez Work Phone: Start: 85-83-0140Mgcxowqcdwup chorionic qualitative Diego Hernandez Work Phone: Start: 56-90-0360NSZJMDZS PLATELET FRACTIONErelijah Hernandez Work Phone: H/O: hysterectomyH/O: hysterectomyCeleste MARTINEZ Work Phone: Plan of Treatment DateCare ActivityDetailAuthorStart: 12-14-2025 End: 14-29-9811Etyujxz encounter procedureNOMS BCP OBStart: 14-50-7091Fwcrj BMI Follow Up PlanAdult BMI Follow Up PlanProPromedica [facility] SystemStart: 10-13-2025 Adult BMI ScreeningAdult BMI ScreeningProPromedica Fostoria Community Hospital SystemStart: 10-13-2025 Tobacco ScreeningTobacco ScreeningPremier Health [facility] SystemStart: 09-19-2025 Screening for malignant neoplasm of cervixPap SmearPremier Health Atrium Medical Center SystemStart: 69-61-8812Qlozw BMI Follow Up PlanAdult BMI Follow Up PlanAtrium Health Wake Forest Baptist Medical Centertart: 51-39-4205Tvwhf BMI ScreeningAdult BMI ScreeningPremier Health Atrium Medical Center SystemStart: 10-96-3178Zqblhpt ScreeningTobacco ScreeningPremier Health [facility] System Start: 71-07-6116Dmftm BMI Follow Up PlanAdult BMI Follow Up [facility] Waynetart: 58-78-0322Zahgv BMI ScreeningAdult BMI ScreeningAtrium Health Wake Forest Baptist Medical Centertart: 36-20-0160Kzxttxf ScreeningTobacco ScreeningAtrium Health Wake Forest Baptist Medical Centertart: 05-27-2025 End: 86-06-3602Anvpxlc encounter mgnmagrug89/26/2025 9:30 AM EST Office Visit SANDRO MARTINEZ [address] [place] [address] Celeste Camacho PA [address] [place] [address] NOMAdan OJEDAGYNStart: 04-22-2025 End: 46-12-0492Cipndtj encounter procedureNOMS Marcy OBGYNComment on above: ArrivedStart: 04-14-2025 End: 65-26-5028Ipkhszu encounter procedureProMedica Physicians Internal Medicine - Family MedicineStart: 65-33-9186Hqcymnlyu vaccinationInfluenza Vaccine [facility] SystemStart: 12-08-2024 End: 70-39-0398Fpvqmld encounter procedureNOMS BCP OBComment on above:Arrived Start: 10-13-2024 End: 61-32-6203Pquftls encounter zskfbjjla44/14/2025 3:20 PM EDT Office Visit [facility] [address] [place] [address] Rony Cox, STUNT MAN-REFRIGERATOR MOVER [address] [place] [address] [facility] - Family MedicineStart: 09-22-2024 End: 88-04-8056Ncfypar encounter biyrjpcyv09/24/2025 2:20 PM EDT Office Visit [facility] [address] [place] [id number] Aurelio Stanley, DO [address] [place] [address] ArrivedNOMS BCP OBComment on above:ArrivedStart: 09-11-2024 End: 45-92-4311Midvttcm Zufwxwl2909/11/2024 11:00 AM EDT Clinical Support [facility] [address] [place] [address] PnyDuklfu [facility] - [facility] MedicineStart: 09-08-2024 End: 50-39-0613Hdgiyhd encounter xynvsyeag20/10/2025 2:20 PM EDT Office Visit [facility] [address] [place] [address] Rony Cox, STUNT MAN-REFRIGERATOR MOVER [address] [place] [address] [facility] - Family MedicineStart: 07-14-2024 End: 82-14-2458Ngtxaus encounter yeftyvsna19/13/2025 1:00 PM EST Office Visit [facility] [address] [place] [address] Rony Cox, STUNT MAN-REFRIGERATOR MOVER [address] [place] [address] [facility] - Family MedicineStart: 29-41-0952Wqxtqdn CounselingTobacco CounselingAtrium Health Wake Forest Baptist Medical Centertart: 07-03-2024 End: 49-35-8261Exioima encounter cykruylrj23/02/2025 11:40 AM EST Office Visit [facility] [address] [place] [address] Rony Cox, STUNT MAN-REFRIGERATOR MOVER [address] [place] [address] [facility] MedicineStart: 32-67-2431Hvmky BMI Follow Up PlanAdult BMI Follow Up PlanPremier Health Atrium Medical Center SystemStart: 24-71-8051Lscno BMI ScreeningAdult BMI ScreeningAtrium Health Wake Forest Baptist Medical Centertart: 90-81-1074Dmltvazxjv ScreeningDepression ScreeningProPromedica F[facility]oria Community Hospital SystemStart: 60-53-1704Usvqedv ScreeningTobacco ScreeningPremier Health [facility] Medical Center SystemStart: 03-24-2024 End: 09-07-3183Gpkbfax encounter /23/2024 3:20 PM EDT Office Visit [facility] [address] [address] Rony Cox, STUNT MAN-REFRIGERATOR MOVER [address] [place] [address] [facility] - [facility] MedicineStart: 53-01-7231Etaiamtcx vaccinationInfluenza VaccinePremier Health Atrium Medical Center SystemStart: 88-04-3481Vwifrndcm vaccinationInfluenza VaccinePremier Health Atrium Medical Center SystemStart: 89-76-8929Mykxcrudh vaccinationFlu vaccine (Season Ended)[facility] Work Phone: start: 47-06-8558Xcuazgafj vaccinationFlu vaccine (#1) [facility]: 52-68-7405SXjM,Tdap and Td Vaccines (2 - Td or Tdap) DTaP,Tdap and Td Vaccines (2 - Td or Tdap)[facility] Medical CenterSolarPower Israeltart: 77-75-7802Sewiiozpr for malignant neoplasm of cervixPap SmearKettering Health – Soin Medical CenterSocialSmacktart: 04-86-2183FXHQS-19 Vaccine (1)COVID-19 Vaccine (1)[facility] Work Phone: start: 44-63-1180Avrxiyq CounselingTobacco Counseling [facility] End: 35-43-2201ORN W Auto Differential panel - BloodCBC auto differential Lab Routine Blood tests for routine general physical examination 1 Occurrences starting 10/13/2024 until 10/13/2025Rockingham Memorial HospitalDeolanComment on above:1 Occurrences starting 10/13/2024 until 10/13/2025BC W Auto Differential panel - BloodCBC auto differential Lab Routine Blood tests for routine general physical examination 10/13/2024 9:51 PM [facility] LONGVIEWVencosba [employer] End: 03-27-2485Mzmeadjfahqpn metabolic 2000 panel - Serum or PlasmaComprehensive metabolic panel Lab Routine Blood tests for routine general physical examination 1 Occurrences starting 10/13/2024 until 10/13/2025[employer] Work Phone: Comment on above:1 Occurrences starting 10/13/2024 until 10/13/2025omprehensive metabolic 2000 panel - Serum or Plasma Comprehensive metabolic panel Lab Routine Blood tests for routine general physical examination 10/13/2024 9:51 PM [facility] LONGVIEWIndia [employer] Online [facility] Special[facility] HospitalCytology Cervical or vaginal smear or scraping studyPap Smear Pathology and Cytology Routine Well woman exam with routine gynecological exam Ordered: 12/08/2024[employer] Work Phone: comment on above:Ordered: 12/08/2024 End: 51-75-4076Puwt Cytometry, VariesFlow Cytometry, Varies Pathology and Cytology Routine Leukocytosis, unspecified type 1 Occurrences starting 11/19/2024 until 11/19/2025[employer] Work Phone: Comment on above:1 Occurrences starting 11/19/2024 until 11/19/2025 End: 17-05-4458Bgkmhnwcja A1c/Hemoglobin.total in BloodHemoglobin A1c Lab Routine Blood tests for routine general physical examination 1 Occurrences starting 10/13/2024 until 10/13/2025[facility] HospitalComment on above:1 Occurrences starting 10/13/2024 until 10/13/2025Hemoglobin A1c/Hemoglobin.total in BloodHemoglobin A1c Lab Routine Blood tests for routine general physical examination 10/13/2024 9:51 PM [facility] End: 44-51-9311Rjwouklap C RNA, quantitative, PCRHepatitis C RNA, quantitative, PCR Lab Routine Once for 1 Occurrences starting 05/12/2020 until 05/12/2020[facility] [place]Comment on above:Once for 1 Occurrences starting 05/12/2020 until 05/12/2020Hepatitis C RNA, quantitative, PCRWayne HealthCare [facility], [place] End: 17-40-5525Wwjjfiqjd C RNA, quantitative, PCRHepatitis C RNA, quantitative, PCR Lab Routine Once for 1 Occurrences starting 10/27/2020 until 10/27/2020[facility] [employer] Work Phone: comment on above:Once for 1 Occurrences starting 10/27/2020 until 10/27/2020Human papilloma virus DNA [Presence] in Unspecified specimen by Probe with amplificationHPV DNA probe, amplified Microbiology Routine Well woman exam with routine gynecological exam Ordered: 12/08/2024[facility]–SmithvilleComment on above:Ordered: 12/08/2024 End: 02-80-8836Klcxj 1995 panel - Serum or PlasmaLipid profile Lab Routine Blood tests for routine general physical examination 1 Occurrences starting 10/13/2024 until 10/13/2025[facility] HospitalComment on above:1 Occurrences starting 10/13/2024 until 10/13/2025Lipid 1995 panel - Serum or PlasmaLipid profile Lab Routine Blood tests for routine general physical examination 10/13/2024 9:51 PM [employer] [facility] End: 65-32-4227Xzlbcisxjjk [Units/volume] in Serum or PlasmaTSH Lab Routine Blood tests for routine general physical examination 1 Occurrences starting 10/13/2024 until 10/13/2025[facility] HospitalComment on above:1 Occurrences starting 10/13/2024 until 10/13/2025Thyrotropin [Units/volume] in Serum or PlasmaTSH Lab Routine Blood tests for routine general physical examination 10/13/2024 9:51 PM [facility] End: 55-59-9765Yhzcazs D 25 hydroxyVitamin D 25 hydroxy Lab Routine Vitamin D deficiency 1 Occurrences starting 07/14/2024 until 07/15/2025[facility] Work Phone: Comment on above:1 Occurrences starting 07/14/2024 until 07/15/2025 Immunizations Immunization DateImmunizationNotesCare FgwelgiwDadkzieq49-68-3487uhbehds toxoid, reduced diphtheria toxoid, and acellular pertussis vaccine, [facility] Get [phone]-EcitjMercy Health [facility] Payers DatePayer CategoryPayerPolicy [id number]-[id number] 1.2.840.667927.1.13.424.2.7.9.025161.232.69815-35-5202Rtoohgv21-65-4218Bgqkhob [id number] 1.2.840.527031.1.13.239.2.7.3.610[id number] 2.16.840.1.609536.3.57[id number] 2.16.840.1.343840.3.57[id number] 2.16.840.1.429767.3.57[id number] 2.16.840.1.606257.3.579.[id number] 2.16.840.1.769969.3.57[id number] 2.16.840.1.671545.3.57[id number] 2.16.840.1.921761.3.57[id number] 2.16.840.1.293138.3.57[id number] 2.16.840.1.179773.3.57[id number] 2.16.840.1.193391.3.57[id number] 2.16.840.1.293324.3.579.[id number] 2.16840.1.447463.3.57[id number] 2.16840.1.120707.3.57[id number] 2.16840.1.682768.3.579.[id number] 2.16840.1.525506.3.579.[id number] 2.16840.1.669045.3.579.[id number] 2.16840.1.604006.3.57[id number] 2.16840.1.823573.3.57[id number] 2.16840.1.152127.3.57[id number] 2.16840.1.687907.3.57[id number] 2.16840.1.322697.3.57[id number] 2.16.840.1.635367.3.579.2.1259 [id number] 1958Unknown [id number] 2.16.840.1.637634.3.579.2.531 Social History DateTypeDetailFacilityTobacco smoking status NHISUnknown if ever smokedSelect [facility] KYStart: 72-17-3529Vcf Assigned At BirthNot on fileFulton County Health Center smoking statusNo Smoking Status EnteredMercy Health [facility] Start: 06-14-2023 End: 04-49-2905Bkq Assigned At BirthFeBellevue Hospitaltart: 11-06-2022 End: 04-63-2078Jfqjmrn smoking status NHISSmokes tobacco dailyPremier Health Atrium Medical Center SystemHistory of tobacco useCigarette SmokerPremier Health Atrium Medical Center SystemStart: 11-06-2022 End: 03-28-1371Cghyypqkli smoked current (pack per day) - Reported0.5PTrinity Health System [facility] SystemStart: 11-06-2022 End: 15-83-6249Qugbwia use and exposureSmokeless tobacco non-userAtrium Health Wake Forest Baptist Medical Centertart: 06-14-2023 End: 07-86-2079Bfnvqezat beverage intakeEx-drinker (finding)[facility] SystemHow hard is it for you to pay for the very basics like food, housing, medical care, and heatingHardOur [facility] of [facility] Loop Survey SystemStart: 49-17-7535Haexbbgmkr depression screening uifgqslqhl1DocHbingoAtrium Health Wake Forest Baptist Medical Centertart: 66-97-7765Uxk Female (finding)[facility] Loop Survey [facility] Centertart: 01-07-2024 End: 11-13-9637Vobkkqlsa beverage intakeLifetime non-drinker (finding)[facility] HealthcareStart: 10-94-6702Pnw assigned at birthFeEncompass Health Rehabilitation Hospital of YorkStart: 42-28-1010Cfiozq identityIdentifies as female gender (finding)[facility] Clinical Notes 06-08-2022 to 04-22-2025 Note Date & MzxmUseaExvvzzyg46-82-6803 History of Present illness Narrative* MICHELLE Murillo - 04/22/2025 10:30 AM EDT Reason for Appointment: Patient ID: Rick Hsu [...] Problems Past Medical History: Diagnosis Date 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 Abdominal: Palpations: Abdomen is soft. Comments: Ruby noted to pfannenstiel incision, healing well Musculoskeletal: [...] Vitals: Estimated body mass index is 43.27 kg/m as calculated from the following: Height [...] with no signs and symptoms of infection. Ruby removed and steristrips placed Follow Up: Patient is to return in 5 weeks for 6 week post operative evaluation Documented by MICHELLE Murillo on behalf of: MICHELLE Murillo documented in this encounterSaint Luke's North Hospital–[id number] History of Present illness Narrative* Ella Kothari - 03/19/2025 9:10 AM EDT Reason for Appointment: Patient ID: Rick sHu is a 39 y.o. female who presents for Pre-op Visit Patient presents today for Pre Op appointment. Patient is scheduled to undergo Total Abdominal Hysterectomy, possible BSO, possible cystoscopy on 04-15-[address] Stanley at [facility]. 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 Exam conducted with a tobacco stripper hand present. Vitals: Estimated body mass index is [...] complaints of menorrhagia, dyspareunia, dysmenorrhea and pelvic pain.I have discussed conservative management vs. surgical management with the patient in detail and patient desires surgical management at this time. Patient will undergo Total Abdominal Hysterectomy, pos sible BSO, possible cystoscopy on 04-15-25. Surgical consents were signed, mmc was reviewed, and patient is to proceed to [facility] OR. Follow Up: Patient is to follow up at 1 & 6 weeks post operative to assess proper healing and recovery from procedure. Documented by Aurelio Stanley DO documented in this encounterSaint Luke's North Hospital–[id number] Miscellaneous Notes* Telephone Encounter - LISA Liz - 01/20/2025 12:26 AM EDT Pt needs to choose provider and set up appt, due for lab re-check * Telephone Encounter - Felicitas Gamino CMA - 01/20/2025 12:26 AM EDT Left message to call back and schedule with provider of her choice [facility] encounter[facility] Telephone encounter Note* Telephone Encounter - LISA Liz - 01/20/2025 12:26 AM EDT Pt needs to choose provider and set up appt, due for lab re-check [facility]07-22-2025 Telephone encounter Note* Telephone Encounter - Felicitas Gamino CMA - 01/20/2025 12:26 AM EDT Left message to call back and schedule with provider of her choice [facility]06-09-[facility] History of Present illness Narrative* Yoon Baker LPN - 12/08/2024 1:20 PM EDT Reason for Appointment: Patient ID: Rick Hsu [...] nursing note reviewed. Exam conducted with a tobacco stripper hand present. Vitals: Estimated body mass index is [...] difficulty. Patient advised to reach out to bun icer if she decides to proceed to OR [...] of: Aurelio Stanley DO documented in this encounterSaint Luke's North Hospital–SmithvilleTfbpdghjpk66-80-2636 History of Present illness Narrative* LISA Walker - 11/18/2024 1:10 PM EDT Attempted to notify patient regarding abnormal labs. Unable to reach. LISA Walker 11/18/24 1310 documented in this encounterAvita Health System [facility]04-14-2025 History of Present illness Narrative* LISA Walker - 10/13/2024 3:20 PM EDT Images from the original note were not included. [address] [facility] [id number] SUBJECTIVE: Patient ID: Farideh Hsu is a [...] past medical history, past social history, past surgicalhistory and problem list. Past Surgical History: Procedure [...] and the following intervention(s) were applied: encouragement toexercise. Physical Exam Vitals and nursing note reviewed. [...] Trazodone 100 mg oral nightly She has pulmonologist intensivist, Dr. Stanley. Recently had exploratory lap for [...] LISA Walker 10/13/24 1558 documented in this encounterAvita Health System [facility]04-14-2025 Instructions* Patient Instructions* LISA Walker - 10/13/2024 3:20 PM EDT Are You Ready To Kick The Habit? Free Tobacco Cessation Resources [facility] Services [facility] provide all employees with free tobacco cessation services that include: Counseling to understand nicotine addiction Education about medications that can help you successfully quit Assistance with developing a plan to quit Call to set up an individual appointment or find out when group classes will be held: [facility]: [phone] [facility]: [phone] [facility]: [phone] [facility]: [phone] Quit Smoking Action Plan and Resources [facility] offers an eight-week, online smoking cessation plan to all [facility] employees, regardless of whether [employer] is your medical insurance provider. Go to [email or web address]/[email or web address] and click the Health Risk Assessment and Resources link to get started. In the nediyor.com menu, click Action Plans instead of Health Risk Assessment to access the Quit Smoking Action Plan. Additional smoking cessation resources are also available to all [facility] employees on the Zgbpf6Ackzmo web page at www.Shopdeca/quitsmoking. [employer] Tobacco Cessation Program If [employer] is your medical insurance provider, there are more free resources available to you, including: No copays or deductibles on local tobacco cessation counseling services to help you quit Prescription assistance for tobacco cessation medications to help you quit For details about the tobacco cessation program available to [employer] members, go to www.DropGifts.Vineloop (Search: Tobacco Cessation Program). [place] Tobacco Quit Line 7-913-EEMS-NOW ( ) is a toll-free, telephonic service that helps [place] residents quit smoking and using tobacco. It is staffed by experts who tailor a quit plan for you and provide you with advice. [place] Tobacco Quit Line 0-940-DXMH-NOW ( ) is a toll-free, telephonic service that helps [place] residents quit smoking and using tobacco. It is staffed by experts who tailor a quit plan for you and provide you with advice. Two weeks of nicotine replacement therapy may be provided at no charge, if needed. Additional Resources These national organizations also offer free information and resources to help you quit tobacco: [employer]--www.cancer.org/healthy/stayawayfromtobacco [place] Heart Association--www.heart.org (Search: Quit Smoking) Centers for Disease Control and Prevention--www.cdc.gov/tobacco [place] Lung Association--www.lungusa.org * Attachments The following attachments cannot be sent through Care Everywhere. * Lowering Your Risk of Colon Cancer (Liberian) * Yearly Physical for Adults (Liberian) documented in this encounterAvita Health System [facility]03-24-2025 History of Present illness Narrative* Yoon Baker LPN - 09/22/2024 2:20 PM EDT Reason for Appointment: Patient ID: Rick Hsu [...] HEADACHE may repeat... (REFER TO PRESCRIPTION NOTES). ALLERGIES Allergies Allergen [...] nursing note reviewed. Exam conducted with a tobacco stripper hand present. Vitals: Estimated body mass index is [...] robotically, then she could be referred to in [place] Patient to monitor symptoms after surgery as she is having discomfort. If patientstarts to have symptoms again then she is to reach out to office and surgical procedure could be discussed. Patient to return to clinic for routine annual appointment. Documented by Yoon Baker LPN on behalf of: Aurelio Stanley DO documented in this encounterSaint Luke's North Hospital–[id number] History of Present illness Narrative* Destiny Colvin CMA - 09/11/2024 11:00 AM EDT Patient was here for her blood pressure to be checked. documented in this encounterAvita Health System [facility]03-11-2025 Miscellaneous Notes* Telephone Encounter - Jumana Kaur CMA - 09/09/2024 10:40 AM EDT [facility] called for a preop clearance , I seen she comes back . Canyou send that as soon as youget it ? fax# [phone] * Telephone Encounter - LISA Walker - 09/09/2024 10:40 AM EDT I have a clearance letter which needs faxed. * Telephone Encounter - Felicitas Gamino CMA - 09/09/2024 10:40 AM EDT done documented in this encounterAvita Health System [facility]03-11-2025 Telephone encounter Note* Telephone Encounter - Jumana Kaur CMA - 09/09/2024 10:40 AM EDT [facility] called for a preop clearance , I seen she comes back . Canyou send that as soon as youget it ? fax# [phone] [facility]03-11-2025 Telephone encounter Note* Telephone Encounter - LISA Walker - 09/09/2024 10:40 AM EDT I have a clearance letter which needs faxed. [facility]03-11-20[facility] Telephone encounter Note* Telephone Encounter - Felicitas Gamino CMA - 09/09/2024 10:40 AM EDT done [facility]03-10-2025 History of Present illness Narrative* LISA Walker - 09/08/2024 2:20 PM EDT Images from the original note were not included. Pamela [address] [facility] [id number] SUBJECTIVE: Patient ID: Farideh Hsu is a [...] past medical history, past social history, past surgicalhistory and problem list. Past Surgical History: Procedure [...] and the following intervention(s) were applied: encouragement toexercise. Physical Exam Vitals and nursing note reviewed. [...] LISA Walker 09/08/24 1441 documented in this encounterAvita Health System [facility]02-18-2025 History of Present illness Narrative* Nuha Luke - 08/19/2024 9:40 AM EST Reason for Appointment: Patient ID: Rick Hsu is a 39 y.o. female who presents for Pre-op Visit Patient presents today for Pre Op appointment. Patient is scheduled to undergo Diagnostic Laparoscopy, possible BREANN, possible FOE, possible BSO on 09/12/[address] Stanley at [facility]. MEDICATIONS Current Outpatient Medications Medication Instructions ARIPiprazole [...] HEADACHE may repeat... (REFER TO PRESCRIPTION NOTES). ALLERGIES Allergies Allergen [...] nursing note reviewed. Exam conducted with a tobacco stripper hand present. Vitals: Estimated body mass index is [...] reviewed, and patient is to proceed to [facility] OR. Follow Up: Patient is to follow up between 1-2 weeks post operative to assess proper healing and recovery fromprocedure. Documented by Bessie Ely LPN on behalf of: Aurelio Stanley DO documented in this encounterSaint Luke's North Hospital–SmithvilleEfzugwjzww46-01-1528 History of Present illness Narrative* Rony Cox APRN-REFRIGERATOR MOVER - 07/14/2024 1:00 PM EST Images from the original note were not included. [address] [facility] [id number] SUBJECTIVE: Patient ID: Farideh Hsu is a [...] past medical history, past social history, past surgicalhistory and problem list. Past Surgical History: Procedure [...] and the following intervention(s) were applied: encouragement toexercise. Physical Exam Vitals and nursing note reviewed. [...] visit: Bipolar affective disorder, currently depressed, mild ([facility]) - ARIPiprazole (ABILIFY) 5 mg tablet; Take [...] LISA Walker 07/14/24 1331 documented in this [facility]08-13-2024 Miscellaneous Notes* Telephone Encounter - Meghan Farrar - 02/12/2024 12:52 PM EDT ----- Message from LISA Rodriguez sent at 02/12/2024 12:24 PM EDT ----- No future ketty scheduled. Overdue for wellness, follow up * Telephone Encounter - Meghan Farrar - 02/12/2024 12:52 PM EDT LM on VM * Telephone Encounter - Meghan Farrar - 02/12/2024 12:52 PM EDT Scheduled documented in this [facility]08-13-2024 Telephone encounter Note* Telephone Encounter - Meghan Farrar - 02/12/2024 12:52 PM EDT ----- Message from LISA Rodriguez sent at 02/12/2024 12:24 PM EDT ----- No future ketty scheduled. Overdue for wellness, follow up [facility] [id number] Telephone encounter Note* Telephone Encounter - Meghanchevy Farrar - 02/12/2024 12:52 PM EDT LM on VM [facility] [id number] Telephone encounter Note* Telephone Encounter - Meghan Charan - 02/12/2024 12:52 PM EDT Scheduled [employer]12-08-2022 NoteIndication: Right flank pain. Comparison: 03/16/2013 exam. 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 Urinary tract infection, site unspecified Nephrolithiasis Calculus of kidney Vitamin D deficiency- Primary Bipolar affective disorder, currently depressed, mild ([facility]) Bipolar I disorder, most recent episode (or current) depressed, mild Chronic seasonal allergic rhinitis Nephrolithiasis Calculus of kidney Lumbar back pain with radiculopathy affecting left lower extremity Migraine without aura and without status migrainosus, not intractable documented in this encounter [facility]* Diagnosis 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 Urinary tract infection, site unspecified Nephrolithiasis Calculus of kidney Vitamin D deficiency- Primary documented in this encounter [facility]* Diagnosis Bipolar affective disorder, currently depressed, mild ([facility]) Bipolar I disorder, most recent episode (or current) depressed, mild documented in this encounter [facility]* Diagnosis 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 Urinary tract infection, site unspecified Nephrolithiasis Calculus of kidney Lumbar back pain with radiculopathy affecting left lower extremity documented [facility]* Diagnosis Lumbar back pain with radiculopathy affecting left lower extremity documented in this [facility]* Diagnosis Lumbar back pain with radiculopathy affecting left lower extremity documented in this encounter [facility]Evaluation [facility]* Diagnosis Lumbar back pain with radiculopathy affecting left lower extremity Vitamin D deficiency documented in [facility]* Diagnosis Lumbar back pain with radiculopathy affecting left lower extremity Bipolar affective disorder, currently depressed, mild ([facility]) Bipolar I disorder, most recent episode (or current) depressed, mild documented in this [facility]* Diagnosis 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 Urinary tract infection, site unspecified Nephrolithiasis Calculus of kidney Bipolar affective disorder, currently depressed, mild ([facility]) Bipolar I disorder, most recent episode (or current) depressed, mild Canker sores oral Oral aphthae Vitamin D deficiency Chronic seasonal allergic rhinitis 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 Nephrolithiasis Calculus of kidney Lumbar back pain with radiculopathy affecting left lower extremity Migraine without aura and without status migrainosus, not intractable documented in this encounter [facility] SystemEvaluation note* Diagnosis Pre-op examination Pelvic pain in female Unspecified symptom associated with female genital organs documented in this encounter [facility] HealthcareEvaluation note* Diagnosis 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 Urinary tract infection, site unspecified Nephrolithiasis Calculus of kidney Migraine without aura and without status migrainosus, not intractable documented in this encounter [facility] SystemEvaluation note* Diagnosis 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 Urinary tract infection, site unspecified Nephrolithiasis Calculus of kidney Benign essential HTN- Primary documented in this encounter [facility]* Diagnosis Postoperative follow-up Follow-up examination, following unspecified surgery Endometriosis Endometriosis, site unspecified documented in this encounter [facility] HealthcareEvaluation note* Diagnosis 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 Urinary tract infection, site unspecified Nephrolithiasis Calculus of kidney Lumbar back pain with radiculopathy affecting left lower extremity documented in this encounter [facility] SystemEvaluation note* Diagnosis 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 Urinary tract infection, site unspecified Nephrolithiasis Calculus of kidney Annual physical exam- Primary Routine general medical examination at a health care facility Insomnia, unspecified type Blood tests for routine general physical examination Laboratory examination ordered as part of a routine general medical examination documented in this encounter [facility] SystemEvaluation note* Diagnosis 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 Urinary tract infection, site unspecified Nephrolithiasis Calculus of kidney Migraine without aura and without status migrainosus, not intractable documented in this encounter [facility]* Diagnosis 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 Urinary tract infection, site unspecified Nephrolithiasis Calculus of kidney Leukocytosis, unspecified type- Primary documented in this encounter [facility]* Diagnosis 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 Urinary tract infection, site unspecified Nephrolithiasis Calculus of kidney Bipolar affective disorder, currently depressed, mild ([facility] Bipolar I disorder, most recent episode (or current) depressed, mild documented in this encounter [facility]* Diagnosis Well woman exam with [...] kidney Bipolar affective disorder, currently depressed, mild ([facility] Bipolar I disorder, most recent episode (or current) depressed, mild Lumbar back pain with radiculopathy affecting left lower extremity documented in this encounter [facility]* Diagnosis 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 Urinary tract infection, site unspecified Nephrolithiasis Calculus of kidney Insomnia, unspecified type documented in this encounter [facility]* Diagnosis Pre-op examination Pelvic pain Dyspareunia in female Dysmenorrhea Menorrhagia with regular cycle documented in this encounter [facility] HealthcareEvaluation noteNo assessment information availableParkwood Hospital Work Phone: Evaluation note* Diagnosis H/O: hysterectomy Acquired absence of both cervix and uterus documented in this encounter [facility] HealthcareHospital Discharge instructions No data available for this section [facility] [facility] Dig[facility]ive Health InstructionsNot on filedocumented in this encounter ProMChildren[facility] [place] SystemInstructions* Attachments The following attachments cannot be sent through Care Everywhere. * Bipolar disorder (Liberian) documented in this encounterProPromedica [facility] SystemInstructionsNot on file documented in this encounterProMedica Health SystemInstructionsNot on file documented in this encounterProOhio State Health SystemInnSania Health SystemInstructionsNot on file documented in this encounterProOhio State Health SystemInnSania Health SystemInstructionsNot on file documented in this encounterProOhio State Health SystemInnSania Health SystemInstructionsNot on file documented in this encounterProOhio State Health SystemInnSania Health SystemInstructionsNot on file documented in this encounterProD.W. [facility] Health SystemInstructionsNot on file documented in this encounterProD.W[facility] Loop Survey SystemInstructions* Attachments The following attachments cannot be sent through Care Everywhere. * High blood pressure in adults (Liberian) documented in this encounterProD.W. [facility]mill[facility] Health SystemInstructionsNot on file documented in this encounterProOhio State Health SystemInnSania Health SystemInstructionsNot on file documented in this encounterProOhio State Health SystemLotus Tissue Repair SystemInstructionsNot on file documented in this encounterProOhio State Health SystemLotus Tissue Repair SystemProgress note No data available for this section [facility] Digestive Health Reason for referral (narrative)No reason for referral information availableParkwood Hospital Work Phone: Summary Purpose Family History No Family History Records Found Relationship Condition Age at Onset Recorded Date/T kati mother Hypertension Unknown Advance Directives No Advanced Directives Records Found Advance Directive Response Recorded Date/ Time Advance Directives No March 3:35pm Hospital Course Note Admission Information Tara t: Farideh [facility] : 1985 Admission date: 12/02/2019 Discharge date: 12/03/2019 CODE STATUS: Full code PCP: unknown Consult: Vice President Of Procurement Diagnoses: 1. Heroin addiction 2. Tobacco user [...] days. Patient is to follow-up tomorrow with [facility]'s case worker and has further follow-up appointments to schedule her outpatient Vivitrol injection. All questions have been answered patient is being (more content not included)... Additional Source Comments INFORMATION SOURCE (unrecogn ized section and content) DATE CREATED AUTHOR 01/27/2020 [facility] DATE CREATED AUTHOR AUTHOR'S ORGANIZ ATION 11/02/2020 [facility] DATE CREATED AUTHOR AUTHOR'S ORGANIZ ATION 10/03/2022 [facility] DATE CREATED AUTHOR AUTHOR'S ORGANIZ ATION 02/22/2023 [facility] DATE CREATED AUTHOR AUTHOR'S ORGANIZ ATION 10/15/2024 [facility] DATE CREATED AUTHOR AUTHOR'S ORGANIZ ATION 10/15/2024 [facility] DATE CREATED AUTHOR AUTHOR'S ORGANIZ ATION 11/28/2024 [facility] DATE CREATED AUTHOR AUTHOR'S ORGANIZ ATION 04/17/2025 [facility] DATE CREATED AUTHOR AUTHOR'S ORGANIZ ATION 04/23/2025 [facility] EPIC Patient Care team informatio n (unrecognized section and content) Team MemberRelationshipSpecialtyStart DateEnd Date Rony Cox APRN-REFRIGERATOR [employer] [address] [place] [address] PCP - GeneralFamily Medicine11/03/22Team MemberRelationshipSpecialtyStart DateEnd Date Rony Cox APRN-REFRIGERATOR [facility] [address] [place] [address] PCP - GeneralFamily Medicine11/03/22Team MemberRelationshipSpecialtyStart DateEnd Date Rony 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 [address] [place] [address] PCP - GeneralFamily Medicine11/03/22Team MemberRelationshipSpecialtyStart DateEnd Date Rony Cox APRN-REFRIGERATOR [facility] [address] [place] [address] PCP - GeneralFamily Medicine11/03/22Team MemberRelationshipSpecialtyStart DateEnd Date Rony Cox, [employer] [facility] [address] [place] [address] PCP - GeneralFamily Medicine11/03/22Team MemberRelationshipSpecialtyStart DateEnd Date Rony Cox, [employer] [address] [place] [address] PCP - GeneralFamily Medicine11/03/22Team MemberRelationshipSpecialtyStart DateEnd Date Rony Cox, [employer] [address] [place] [address] PCP - GeneralFamily Medicine11/03/22Team MemberRelationshipSpecialtyStart DateEnd Date Rony Cox, [employer] [address] [place] [address] PCP - GeneralFamily Medicine11/03/22Team MemberRelationshipSpecialtyStart DateEnd Date Rony Cox, [employer] [address] [place] [address] PCP - GeneralFamily Medicine11/03/22Team MemberRelationshipSpecialtyStart DateEnd Date Rony Cox, [employer] [facility] [address] [place] [address] PCP - Generalmily Medicine11/03/22Team MemberRelationshipSpecialtyStart DateEnd Date Rony Cox [facility] [address] [place] [address] [facility] - [facility] Medicine11/03/22Team MemberRelationshipSpecialtyStart DateEnd Date Rony Cox, [facility] [address] LEFT PM 12/29/24 [place] [address] [facility] - [facility] MemberRelationshipSpecialtyStart DateEnd Date Rony Cox [facility] [address] LEFT PM 12/29/24 [place] [address] PCP - [facility] Team Status: Inactive Member Role Status Dates Aurelio Stanley DO Attending Provider Active Start : April 15, 2025 End: April 15, 2025 Reason for Visit (unrecogniz ed section and content) ReasonCommentsMed RefillReasonCommentsdiscuss medicationReasonOnset DateComments Med [id number] DateCommentsMed [id number] Pre-op VisitReasonCommentsHypertensionAt preopReasonCommentsPost-op VisitReason CommentsAnnual ExamReasonCommentsWell Women Visit Goals (unrecognized section and content) Goals may be documented in a n alternate section FOR RECORDS PERTAINING TO PATIENTS WHO ARE [...] BE BASED ON THE PRIMARY CLINICAL RECORDS. [employer] [facility]. provides no warranty or guarantee of the accuracy or completeness of information in this document.
[2025-04-29 12:02] LABS: Hematocrit 38.3 % (36.0-48.0); Hemoglobin 12.6 g/dL (12.0-16.0); Immature Granulocytes Abs Auto 0.08 10^3/uL (0.00-0.03); Immature Granulocytes Pct Auto 0.6 % (0.0-0.5); Lymphocytes Absolute Auto 2.1 10^3/uL (1.2-3.8); Mean Corpuscular HGB Conc 32.9 g/dL (29.9-35.2); Mean Corpuscular Hemoglobin 28.8 pg (26.7-34.0); Mean Corpuscular Volume 87.6 fL (81.0-99.0); Platelet Count 278 10^3/uL (150-450); Red Blood Count 4.37 10^6/uL (4.20-5.40); White Blood Count 12.4 10^3/uL (4.0-11.0)
[2025-04-29 12:09] LABS: Cast Seen? NONE SEEN #/LPF (NONE SEEN); Crystals Seen? None Seen #/HPF (None Seen); Urine Culture Indicated YES-FRMC
[2025-04-29 12:15] LABS: Anion Gap 12.1; Blood Urea Nitrogen 13.0 mg/dL (7.0-18.0); Calcium 9.0 mg/dL (8.5-10.1); Carbon Dioxide 25.7 mmol/L (21.0-32.0); Chloride 104 mmol/L (98-107); Estimated GFR (African America >60 (>=60 mL/min/1.73m^2); Estimated GFR (Non-African Ame >60 (>=60 mL/min/1.73m^2); Glucose 125 mg/dL (74-106); Potassium 3.8 mmol/L (3.5-5.1); Sodium 138 mmol/L (136-145)
== END 2025-04-29 13:19 | disposition home or self-care (01) ==
PROVIDERS: Emergency Provider Emergency Medicine; PCP Nurse Practitioner
DX: G89.18 Other acute postprocedural pain (principal); Z90.710 Acquired absence of both cervix and uterus; F17.210 Nicotine dependence, cigarettes, uncomplicated
CPT/HCPCS: 36415; 80048; 81001; 85025; 87086; 87088; 87186; 99283